=== PATIENT | male | born 1965 | race Caucasian/White ===

== ENCOUNTER 2022-06-25 19:48 | Inpatient (IN) ==
[2022-06-25] MEDS ORDERED: PROPOFOL IV EMULSION 10 MG/ML 100 ML VIAL IV ONE ×2 (19:56→23:30)
--- NOTE | 2022-06-25 20:17 | XRay Report ---
SINGLE VIEW CHEST CLINICAL HISTORY: Dyspnea. Respiratory failure. Intubation. FINDINGS: 3 AP, portable, supine chest radiographs bar compared to chest x-ray and chest CT dated 10/29. An endotracheal tube has been placed. The tip of the catheter projects proximally 6 cm above t he melani. An enteric tube has been placed. The tip projects just below the diaphragm, with the side holes located above the diaphragm. The heart is enlarged. Atherosclerotic calcification of the thorac ic aorta. There is pulmonary vascular congestion. Emphysema and chronic interstitial thickening is si milar to previous. Asymmetric opacities are seen in the left upper lobe. No large pleural effusion is identified. Foci of parenchymal scarring are seen throughout both lungs. No pneumothorax is seen. Th e bony thorax is grossly intact. IMPRESSION: 1. Endotracheal and enteric tubes have been placed as above. The enteric tube should be advanced. 2. Cardiomegaly and emphysema with pulmonary vascular congestion. 3. Asymmetric airspace opacities in the left upper lobe could represent pulmonary edema and/or an inf ectious/inflammatory pneumonitis. Clinical correlation will be required. Radiographic follow-up to re solution is recommended. ACT 112: Negative or not required by law. Electronically signed by: Leo Marcial M.D. 06/25/2022 8:15 PM
[2022-06-25] MEDS ORDERED: methylPREDNISolone 125 MG/2 ML VIAL IV STA ×2 (20:24→23:12)
[2022-06-25] MEDS ORDERED: ALBUT/IPRATROP 3MG/0.5MG NEB 3 ML VIAL NEB ONE (20:24)
[2022-06-25 20:29] LABS: iSTAT Arterial Blood Gas HCO3 41 meg/L (19-24); iSTAT Arterial Blood Gas pCO2 > 115 mmHg (35-46); iSTAT Arterial Blood Gas pH 7.13 (7.35-7.45); iSTAT Arterial Blood Gas pO2 239 mmHg (80-95); iSTAT Carbon Dioxide > 40 mmol/L (24-31); iSTAT Hematocrit 47 % (42-52); iSTAT Potassium 4.8 mmol/L (3.3-5.0); iSTAT Sodium 138 mmol/L (135-144)
[2022-06-25 21:12] LABS: Partial Thromboplastin Ratio 1.3; Partial Thromboplastin Time 34.5 Seconds (21.0-31.0); Prothrombin Time 11.1 Seconds (9.0-12.0)
[2022-06-25 21:21] LABS: iSTAT Arterial Blood Gas HCO3 38 meg/L (19-24); iSTAT Arterial Blood Gas pCO2 107 mmHg (35-46); iSTAT Arterial Blood Gas pH 7.16 (7.35-7.45); iSTAT Arterial Blood Gas pO2 65 mmHg (80-95); iSTAT Carbon Dioxide > 40 mmol/L (24-31); iSTAT Hematocrit 46 % (42-52); iSTAT Hemoglobin 15.6 g/dl (14.0-18.0); iSTAT Potassium 4.8 mmol/L (3.3-5.0); iSTAT Sodium 139 mmol/L (135-144)
[2022-06-25] MEDS ORDERED: OPTIRAY 320 500ml IV ONE (21:28)
[2022-06-25 21:29] LABS: Hematocrit (blood only) 48.9 % (42.0-52.0); Hemoglobin 15.2 g/dl (14.0-18.0); Mean Corpuscular Hemoglobin 30.5 pg (25.0-34.0); Mean Corpuscular Hgb Conc 31.1 g/dL (32.0-36.0); Mean Platelet Volume 11.3 fL (9.4-12.4); Platelet Count 117 K/uL (130-400); RDW Coefficient of Variation 14.7 % (11.5-14.5); RDW Standard Deviation 53.8 fL (36.4-46.3); Red Blood Count 4.99 M/uL (4.70-6.10); White Blood Count 12.63 K/ul (4.8-10.8)
[2022-06-25 21:43] LABS: Albumin Level 4.3 gm/dl (3.4-5.0); BUN Creatinine Ratio 20.4 (10-20); Bilirubin Direct 0.4 mg/dl (0-0.2); Bilirubin,Total 1.1 mg/dl (0.2-1.0); Calcium 9.4 mg/dl (8.5-10.1); Creatinine Clr Calc Pharmacy 91.4 ml/min; Est GFR (African American) 82.6 ml/min; Est GFR (Non-African American) 71.3 ml/min; Magnesium 2.1 mg/dl (1.7-2.4); Potassium 4.8 mmol/L (3.5-5.1); Total Protein 7.5 gm/dl (6.0-8.3)
[2022-06-25 21:50] LABS: Troponin I High Sensitivity 25.8 pg/ml (0-20)
--- NOTE | 2022-06-25 21:53 | CT Scan Report ---
CT ANGIOGRAM OF THE CHEST CLINICAL HISTORY: Dyspnea. COMPARISON STUDY: Chest CT dated 10/29/2020. Chest x-ray dated 06/25/2022. TECHNIQUE: Following the IV administration of 112 cc of Optiray 320, CT angiogram of the chest was pe rformed from the upper abdomen to the thoracic inlet utilizing the pulmonary embolus protocol. Images are reviewed in the axial, sagittal, and coronal planes. 3-D MIPS images are created and assessed. I V contrast was administered without complication. A dose lowering technique was utilized adhering to the principles of ALARA. The examination is degraded by motion artifact, as well as by streak artifa ct from the arms which could not be elevated above the chest. CT DOSE: 1129.51 mGy.cm FINDINGS: Thyroid: Normal in size and heterogeneous in attenuation. Thoracic aorta: There is atherosclerotic calcification of the thoracic aorta, which is normal in [place] and demonstrates bovine variant arch anatomy. No dissection is seen. Pulmonary vasculature: The pulmonary trunk is normal in caliber. There are no filling defects identif ied in main, lobar, or segmental pulmonary branches to suggest pulmonary embolus. Heart: The heart is normal in size and without pericardial effusion. The coronary arteries are densel y calcified. Lungs and pleural spaces: An endotracheal tube terminates above the melani. Evaluation of the lung pa renchyma is degraded by motion artifact. Emphysematous change is noted. Dense airspace consolidation is seen in the the left lower lobe. There is a small focus of cavitation within the left lower lobe c onsolidation seen on image #185. No organized fluid collection is clearly seen. Milder patchy nodular consolidation is seen throughout both lungs. There is noted along the right lower lobe pulmonary nod ule seen on image #144. Foci of mucous plugging are seen throughout the left lower lobe airways. Mediastinum: There are numerous mildly enlarged mediastinal nodes. Subcarinal nodes measure up to 15 mm in short axis. Michelle: Enlarged bilateral hilar nodes measure up to 14 mm in short axis. Axillae: There is no axillary lymphadenopathy. Upper abdomen: Enteric tube terminates in the distal stomach. Partially visualized upper abdominal vi scera is within normal limits. Skeletal structures: The skeletal structures appear osteopenic. Degenerative change is noted in the t horacic spine. No lytic or blastic bony lesions are seen. IMPRESSION: 1. There is no evidence of pulmonary embolus in the main, lobar, or segmental pulmonary arteries. 2. Emphysema. 3. There is dense airspace consolidation in the left lower lobe with a small focus of cavitation. 4. No organized fluid collection is clearly seen within the consolidated lung. 5. Mild patchy nodular consolidation is seen throughout both lungs. These findings likely represent m ultifocal pneumonia. Follow-up to resolution is recommended. 6. Mildly enlarged mediastinal and hilar lymph nodes are likely reactive. 7. There is an 8 mm right lower lobe pulmonary nodule. Follow-up is recommended as per the Fleischner criteria. See below. 8. Endotracheal and enteric tubes are in place. 9. Additional findings as above. Please refer to below summary of Fleischner criteria recommendations for follow-up of incidental CT n odules (Nica Willson, Guidelines for management of small pulmonary nodules detected on CT scans: A sta tement from the Fleischner Society, Radiology 237: [id number].) SOLID NODULES Solitary nodule size: <6 mm * low risk patients: no follow-up needed * high risk patients: optional CT at 12 months Solitary nodule size: 6-8 mm * low risk patients: follow-up at 6-12 months, then consider further follow-up at 18-24 months * high risk patients: initial follow-up CT at 6-12 months and then at 18-24 months if no change Solitary nodule size: >8 mm * either low or high risk patients - consider follow-up CT at 3 months, and/or CT-PET, and/or biopsy Multiple nodules size: <6 mm * low risk patients: no routine follow-up * high risk patients: optional CT at 12 months Multiple nodules size: 6-8 mm * low risk patients: follow-up at 3-6 months, then consider further follow-up at 18-24 months * high risk patients: follow-up at 3-6 months, then at 18-24 months if no change Multiple nodules size: >8 mm * low risk patients: follow-up at 3-6 months, then consider further follow-up at 18-24 months * high risk patients: follow-up at 3-6 months, then at 18-24 months if no change Note: newly detected indeterminate nodule in persons 35 years of age or older. * low risk patients: minimal or absent history of smoking and/or other known risk factors * high risk patients: history of smoking or of other known risk factors (e.g. first degree relative with lung cancer, or exposure to asbestos, radon, uranium) * if a nodule up to 8 mm is partly solid or is ground glass further follow-up is required after 24 m onths to exclude possible slow growing adenocarcinoma (TIFFANY) SUBSOLID NODULES Solitary pure ground-glass nodule * nodule size <6 mm - no CT follow-up required * nodule size >=6 mm - follow-up CT at 6-12 months, then every 2 years until 5 years Solitary part-solid nodule * nodule size <6 mm - no CT follow-up required * nodule size >=6 mm - follow-up CT at 3-6 months. If unchanged, and solid component remains <6 mm, then annual follow-up for 5 years Multiple subsolid nodules * nodule size <6 mm - follow-up CT at 3-6 months, consider further follow-up at 2 and 4 years if sta ble * nodule size >=6 mm - follow-up CT at 3-6 months, subsequent management based on the most suspiciou s nodule(s) ACT 112: Negative or not required by law. Electronically signed by: Leo Marcial M.D. 06/25/2022 9:51 PM
[2022-06-25 21:58] LABS: ALC (manual) 10.74 K/uL (1.2-3.4); ANC (manual) 1.39 K/uL (1.4-6.5); Lymphocytes # (manual) 10.74 K/uL (1.2-3.4); Lymphocytes % (manual) 85 %; Monocytes # (manual) 0.51 K/uL (0.11-0.59); Monocytes % (manual) 4 %; Neutrophils # (manual) 1.39 K/uL (1.40-6.50); Neutrophils % (manual) 11 %
[2022-06-25 21:58] LABS: Appearance Urine Clear (Clear); Bacteria Urine Automated Negative (Negative); Bilirubin Urine 1+ (Negative); Blood Urine 1+ (Negative); Color Urine Orange; Epithelial Cell Urine Auto >30 /lpf (0-5); Glucose Urine UA Negative (Negative); Ketones Urine 1+ (Negative); Leukocyte Esterase Urine Negative (Negative); Nitrite Urine Negative (Negative); Protein Urine 4+ (Negative); RBC Urine Automated 0-4 /hpf (0-4); Specific Gravity Urine 1.034 (1.000-1.030); Urobilinogen Urine Negative (Negative)
[2022-06-25] MEDS ORDERED: metroNIDAZOLE 500 MG/100 ML BAG IV STA (22:10)
[2022-06-25] MEDS ORDERED: CEFEPIME 2,000 MG/20 ML VIAL IV STA (22:10)
[2022-06-25] MEDS ORDERED: VANCOMYCIN CONSULT ACTIVE PRN (22:10)
[2022-06-25] MEDS ORDERED: VANCOMYCIN HCL 2,750 MG in SODIUM CHLORIDE 0.9% 500 ML IV ONE (22:10)
[2022-06-25 22:19] LABS: Adenovirus PCR Not Detected (NotDetected); Bordetella parapertussis PCR Not Detected (NotDetected); Bordetella pertussis PCR Not Detected (NotDetected); Chlamydia pneumoniae PCR Not Detected (NotDetected); Coronavirus 229E PCR Not Detected (NotDetected); Coronavirus CoV-2 (COVID19)PCR Not Detected (NotDetected); Coronavirus HKU1 PCR Not Detected (NotDetected); Coronavirus NL63 PCR Not Detected (NotDetected); Coronavirus OC43PCR Not Detected (NotDetected); Human Metapneumovirus PCR Not Detected (NotDetected); Influenza A PCR Not Detected (NotDetected); Influenza B PCR Not Detected (NotDetected); Mycoplasma pneumoniae PCR Not Detected (NotDetected); Parainfluenza Virus 1 PCR Not Detected (NotDetected); Parainfluenza Virus 2 PCR Not Detected (NotDetected); Parainfluenza Virus 3 PCR Not Detected (NotDetected); Parainfluenza Virus 4 PCR Not Detected (NotDetected); Respiratory Syncytial VirusPCR Not Detected (NotDetected); Rhinovirus/Enterovirus PCR Not Detected (NotDetected)
[2022-06-25 22:30] LABS: HCO3 ABG 40 mmol/L (19-24); Oxygen Saturation ABG 98.7 % (90-95); PCO2 ABG 86 mmHg (35-46); PO2 ABG 114 mmHg (80-95); pH ABG 7.28 (7.35-7.45)
[2022-06-25 22:37] LABS: Allen Test POS (Pos)
--- NOTE | 2022-06-25 23:12 | Emergency Department Note ---
History of Present Illness General Chief complaint: Respiratory Distress Stated complaint: semi responsive/intubated Time Seen by Provider: 06/25/22 19:52 Source: EMS History of Present Illness Provider complaint: Respiratory distress 57-year-old male presents emergency department for respiratory distress. Patient was intubated by EMS in the field. EMS reports that the patient called EMS for difficulty breathing. Patient has a known history of COPD. They state he was hypertensive having difficulty speaking and then he became STEMI responsive in the ambulance and had to be intubated. Home Medications Medication Instructions Recorded Confirmed Type albuterol sulfate 2.5 mg/3 mL 2.5 mg inhalation DIRECTED PRN 06/25/22 06/25/22 History (0.083 %) solution for nebulization Shortness Of Breath epinephrine 0.3 mg/0.3 mL 0.3 mg IM DIRECTED PRN Allergic 06/25/22 06/25/22 History injection, auto-injector Reaction fluticasone propionate 230 2 inh inhalation BID 06/25/22 06/25/22 History mcg-salmeterol 21 mcg/actuation HFA inhaler (Advair HFA) furosemide 80 mg tablet 80 mg PO BID 06/25/22 06/25/22 History tamsulosin 0.4 mg capsule 0.4 mg PO DAILY 06/25/22 06/25/22 History tiotropium bromide 18 mcg capsule 18 mcg inhalation DAILY 06/25/22 06/25/22 History with inhalation device (Spiriva with HandiHaler) Allergies Allergy/AdvReac Type Severity Reaction Status Date / Time Penicillins Allergy Intermediate Hives Verified 06/25/22 20:30 bee venom protein (honey bee) Allergy Unknown ON [facility] MED Verified 06/25/22 20:30 LIST Past Med/Surg History Medical History Acute leukemia Acute respiratory failure with hypoxia CLL (chronic lymphocytic leukemia) COPD (chronic obstructive pulmonary disease) HLD (hyperlipidemia) HTN (hypertension) Necrotizing pneumonia Obesity Social History Smoking Status: Current every day smoker Tobacco Type: Cigarettes Feels Safe at Home: Yes Physical Exam Vital Signs Vital Signs - 24 hr 06/25/22 20:19 06/25/22 20:40 06/25/22 19:54 Temperature Temperature Source Pulse Rate 120 H 115 H Pulse Rate [Apical] Pulse Rate from SpO2 Sensor Pulse Rhythm Regular Regular Pulse Rhythm [Apical] Pulse Strength Normal Pulse Strength [Apical] Respiratory Rate 22 26 H Respiratory Effort / Characteristics Respiratory Depth Normal Respiratory Pattern Blood Pressure 125/76 Blood Pressure [Right Arm] Blood Pressure Mean 92 Blood Pressure Mean [Right Arm] Blood Pressure Position Lying Pulse Oximetry 100 91 95 Oxygen Delivery Method Mechanical Vent Mechanical Vent Mechanical Vent Fraction of Inspired Oxygen 50 50 SaO2/FiO2 Ratio 200 Sepsis Recent Fever Within 48 Hours No Sepsis New/Unexplained Change in Mental Status Yes Sepsis Action Taken by Nursing Physician Notified End-Tidal CO2 End Tidal CO2 (18-54mmHg) 06/25/22 21:30 06/25/22 19:52 06/25/22 20:15 Temperature 36.9 C Temperature Source Rectal Pulse Rate 127 H Pulse Rate [Apical] 109 H Pulse Rate from SpO2 Sensor Pulse Rhythm Pulse Rhythm [Apical] Regular Pulse Strength Pulse Strength [Apical] Normal Respiratory Rate 26 H 22 26 H Respiratory Effort / Characteristics Mechanically Ventilated Respiratory Depth Normal Respiratory Pattern Regular Blood Pressure Blood Pressure [Right Arm] 114/66 Blood Pressure Mean Blood Pressure Mean [Right Arm] 82 Blood Pressure Position Pulse Oximetry 99 100 Oxygen Delivery Method Mechanical Vent Fraction of Inspired Oxygen 70 100 50 SaO2/FiO2 Ratio 141 Sepsis Recent Fever Within 48 Hours Sepsis New/Unexplained Change in Mental Status Sepsis Action Taken by Nursing End-Tidal CO2 82 End Tidal CO2 (18-54mmHg) 67 06/25/22 21:10 06/25/22 20:03 06/25/22 20:10 Temperature Temperature Source Pulse Rate 126 H 127 H Pulse Rate [Apical] Pulse Rate from SpO2 Sensor 126 H 125 H Pulse Rhythm Pulse Rhythm [Apical] Pulse Strength Pulse Strength [Apical] Respiratory Rate 22 5 L Respiratory Effort / Characteristics Respiratory Depth Respiratory Pattern Blood Pressure Blood Pressure [Right Arm] Blood Pressure Mean Blood Pressure Mean [Right Arm] Blood Pressure Position Pulse Oximetry 100 100 Oxygen Delivery Method Fraction of Inspired Oxygen 70 SaO2/FiO2 Ratio Sepsis Recent Fever Within 48 Hours Sepsis New/Unexplained Change in Mental Status Sepsis Action Taken by Nursing End-Tidal CO2 77 70 End Tidal CO2 (18-54mmHg) 06/25/22 20:20 06/25/22 20:30 06/25/22 20:37 Temperature Temperature Source Pulse Rate 128 H 120 H Pulse Rate [Apical] Pulse Rate from SpO2 Sensor 121 H 120 H Pulse Rhythm Pulse Rhythm [Apical] Pulse Strength Pulse Strength [Apical] Respiratory Rate 24 26 H Respiratory Effort / Characteristics Respiratory Depth Respiratory Pattern Blood Pressure 167/98 H Blood Pressure [Right Arm] Blood Pressure Mean 121 Blood Pressure Mean [Right Arm] Blood Pressure Position Pulse Oximetry 100 96 Oxygen Delivery Method Fraction of Inspired Oxygen SaO2/FiO2 Ratio Sepsis Recent Fever Within 48 Hours Sepsis New/Unexplained Change in Mental Status Sepsis Action Taken by Nursing End-Tidal CO2 70 66 End Tidal CO2 (18-54mmHg) 06/25/22 20:37 06/25/22 20:40 06/25/22 20:45 Temperature Temperature Source Pulse Rate 125 H 122 H 124 H Pulse Rate [Apical] Pulse Rate from SpO2 Sensor 125 H 122 H 123 H Pulse Rhythm Pulse Rhythm [Apical] Pulse Strength Pulse Strength [Apical] Respiratory Rate 23 26 H 26 H Respiratory Effort / Characteristics Respiratory Depth Respiratory Pattern Blood Pressure Blood Pressure [Right Arm] Blood Pressure Mean Blood Pressure Mean [Right Arm] Blood Pressure Position Pulse Oximetry 94 92 90 Oxygen Delivery Method Fraction of Inspired Oxygen SaO2/FiO2 Ratio Sepsis Recent Fever Within 48 Hours Sepsis New/Unexplained Change in Mental Status Sepsis Action Taken by Nursing End-Tidal CO2 76 81 85 End Tidal CO2 (18-54mmHg) 06/25/22 20:45 06/25/22 20:50 06/25/22 21:00 Temperature Temperature Source Pulse Rate 122 H Pulse Rate [Apical] Pulse Rate from SpO2 Sensor 121 H Pulse Rhythm Pulse Rhythm [Apical] Pulse Strength Pulse Strength [Apical] Respiratory Rate 26 H Respiratory Effort / Characteristics Respiratory Depth Respiratory Pattern Blood Pressure 146/89 H 125/76 Blood Pressure [Right Arm] Blood Pressure Mean 108 92 Blood Pressure Mean [Right Arm] Blood Pressure Position Pulse Oximetry 92 Oxygen Delivery Method Fraction of Inspired Oxygen SaO2/FiO2 Ratio Sepsis Recent Fever Within 48 Hours Sepsis New/Unexplained Change in Mental Status Sepsis Action Taken by Nursing End-Tidal CO2 71 End Tidal CO2 (18-54mmHg) 06/25/22 21:00 06/25/22 21:10 06/25/22 21:15 Temperature Temperature Source Pulse Rate 119 H 116 H 117 H Pulse Rate [Apical] Pulse Rate from SpO2 Sensor 119 H 117 H 116 H Pulse Rhythm Pulse Rhythm [Apical] Pulse Strength Pulse Strength [Apical] Respiratory Rate 26 H 26 H 26 H Respiratory Effort / Characteristics Respiratory Depth Respiratory Pattern Blood Pressure Blood Pressure [Right Arm] Blood Pressure Mean Blood Pressure Mean [Right Arm] Blood Pressure Position Pulse Oximetry 89 L 95 96 Oxygen Delivery Method Fraction of Inspired Oxygen SaO2/FiO2 Ratio Sepsis Recent Fever Within 48 Hours Sepsis New/Unexplained Change in Mental Status Sepsis Action Taken by Nursing End-Tidal CO2 77 69 65 End Tidal CO2 (18-54mmHg) 06/25/22 21:15 06/25/22 21:34 06/25/22 21:34 Temperature Temperature Source Pulse Rate 113 H Pulse Rate [Apical] Pulse Rate from SpO2 Sensor 113 H Pulse Rhythm Pulse Rhythm [Apical] Pulse Strength Pulse Strength [Apical] Respiratory Rate 26 H Respiratory Effort / Characteristics Respiratory Depth Respiratory Pattern Blood Pressure 118/76 114/66 Blood Pressure [Right Arm] Blood Pressure Mean 90 82 Blood Pressure Mean [Right Arm] Blood Pressure Position Pulse Oximetry 96 Oxygen Delivery Method Fraction of Inspired Oxygen SaO2/FiO2 Ratio Sepsis Recent Fever Within 48 Hours Sepsis New/Unexplained Change in Mental Status Sepsis Action Taken by Nursing End-Tidal CO2 60 End Tidal CO2 (18-54mmHg) 06/25/22 21:40 06/25/22 21:45 06/25/22 21:45 Temperature Temperature Source Pulse Rate 111 H 110 H Pulse Rate [Apical] Pulse Rate from SpO2 Sensor 111 H 110 H Pulse Rhythm Pulse Rhythm [Apical] Pulse Strength Pulse Strength [Apical] Respiratory Rate 26 H 26 H Respiratory Effort / Characteristics Respiratory Depth Respiratory Pattern Blood Pressure 118/68 Blood Pressure [Right Arm] Blood Pressure Mean 84 Blood Pressure Mean [Right Arm] Blood Pressure Position Pulse Oximetry 98 99 Oxygen Delivery Method Fraction of Inspired Oxygen SaO2/FiO2 Ratio Sepsis Recent Fever Within 48 Hours Sepsis New/Unexplained Change in Mental Status Sepsis Action Taken by Nursing End-Tidal CO2 71 67 End Tidal CO2 (18-54mmHg) 06/25/22 21:50 06/25/22 23:08 Temperature Temperature Source Pulse Rate 110 H Pulse Rate [Apical] Pulse Rate from SpO2 Sensor 110 H Pulse Rhythm Pulse Rhythm [Apical] Pulse Strength Pulse Strength [Apical] Respiratory Rate 26 H 26 H Respiratory Effort / Characteristics Respiratory Depth Respiratory Pattern Blood Pressure Blood Pressure [Right Arm] Blood Pressure Mean Blood Pressure Mean [Right Arm] Blood Pressure Position Pulse Oximetry 97 Oxygen Delivery Method Fraction of Inspired Oxygen 70 SaO2/FiO2 Ratio Sepsis Recent Fever Within 48 Hours Sepsis New/Unexplained Change in Mental Status Sepsis Action Taken by Nursing End-Tidal CO2 62 50 End Tidal CO2 (18-54mmHg) Physical Exam GENERAL: Intubated. Distressed. EYES: Pupils 2 mm and reactive. CV: Normal rate, regular rhythm, normal heart sounds and intact distal pulses. There is no peripheral edema. Palpable radial pulses bue. PULM/CHEST: Diminished breath sounds bilaterally. ABD: The abdomen is soft and distended. Course Course 1951: The patient was evaluated in room B1. A complete history and physical exam was performed Cardiac monitoring: An order was placed for continuous cardiac monitoring. The monitor shows a rate of 110 with sinus rhythm interpreted by me Patient arrives intubated. OG tube placed by the nursing. 2014: [id number] ABG shows a PCO2 of 121.8. pH 7.132. Bicarb 40.7 oxygen saturation 100%. Chest x-ray does not show any cardiomegaly or cephalization. ETT was approximately 6 cm above the melani and will be pushed down 4 cm. Patient's respiratory rate was increased in cirrhosis inspiratory to expiratory ratio to 1:4. Patient will be treated with hour-long DuoNeb treatment and IV steroids. 2114: Repeat ABG shows a pH of 7.163 with improvement of the PCO2 to 107. We will continue the patient on ventilator settings. External medical records were reviewed. The patient was seen in this hospital in October 2020. He was intubated in the field at that time also and then was sent to the ICU. From the ICU he was transported to [facility] because he had a leukocytosis of 200 and they are concerned that the patient might need plasmapheresis. public health program manager was able to access records from [facility] and during the patient's hospital stay in 2020 when he was transferred from this facility the patient was started on antibiotics and had a bronchoscopy done in [place] and then was subsequently extubated and discharged. He did not receive plasmapheresis. 2314: Vital signs stable on ventilator. Labs show leukocytosis of 12.6. Lactic acid within normal limits. Repeat blood gas showed a ABG pH of 7.28 PCO2 of 86 bicarb 40 oxygen saturation 98.7. Patient is improving on ventilator. CT of the chest shows no PE but does show pneumonia. Patient treated with cefepime vancomycin and Flagyl. Patient will be admitted [facility] team Dr. Riddle has been notified and needs ICU has also been notified. Administered Medications Discontinued Medications Albuterol (Albut/Ipratrop 3mg/0.5mg Neb 3 Ml Vial) 12 ml NEB ONE ONE; Protocol Stop: 06/25/22 20:25 Last Admin: 06/25/22 20:49 Dose: 12 ml Documented By: LISS Cefepime HCl (Maxipime) 2,000 mg in 20 mls @ 5 mls/min IV NOW STA; Protocol Stop: 06/25/22 22:13 Last Admin: 06/25/22 22:19 Dose: 5 mls/min Documented By: TAMARA Ioversol (Optiray 320 500ml) 112 ml IV ONCE ONE Stop: 06/25/22 21:29 Last Admin: 06/25/22 21:28 Dose: 112 ml Documented By: JUAN J Methylprednisolone (Methylprednisolone 125 Mg/2 Ml Vial) 125 mg IV NOW STA Stop: 06/25/22 20:25 Last Admin: 06/25/22 21:35 Dose: 125 mg Documented By: TAMARA Propofol (Propofol Iv Emulsion 10 Mg/Ml 100 Ml Vial) Confirm Administered Dose 1,000 mg IV .STK-MED ONE Stop: 06/25/22 19:57 Last Admin: 06/25/22 20:00 Dose: 1,000 mg Documented By: TAMARA Co-signed By: ARPAN Critical Care Time Critical Care Time: Yes Total Critical Care Time: 85 I have personally spent greater than 85 minutes of critical care time in the direct management of this patient. This includes bedside care, interpretation of diagnostic studies, and testing, discussion with consultants, patient, and family members, and other required patient management activities. This 85 minutes is in excess of all separately billable procedures. Medical Decision Making Laboratory Data Attestation: I reviewed the patient's lab results. 06/25/22 20:45 06/25/22 21:10 Lab Results 06/25/22 06/25/22 06/25/22 Range/Units 20:15 20:45 20:45 WBC 12.63 H (4.8-10.8) K/ul RBC 4.99 (4.70-6.10) M/uL Hgb 15.2 (14.0-18.0) g/dl POC Hgb 16.0 (14.0-18.0) g/dl Hct 48.9 (42.0-52.0) % POC Hct 47 (42-52) % MCV 98.0 (80.0-100.0) fL MCH 30.5 (25.0-34.0) pg MCHC 31.1 L (32.0-36.0) g/dL RDW Std Deviation 53.8 H (36.4-46.3) fL RDW Coeff of Argenis 14.7 H (11.5-14.5) % Plt Count 117 L (130-400) K/uL MPV 11.3 (9.4-12.4) fL Neutrophils % (Manual) 11 % Lymphocytes % (Manual) 85 % Monocytes % (Manual) 4 % Neutrophils # (Manual) 1.39 L (1.40-6.50) K/uL Total Absolute Neuts 1.39 L (1.4-6.5) K/uL Lymphocytes # (Manual) 10.74 H (1.2-3.4) K/uL Total Abs Lymphocytes 10.74 H (1.2-3.4) K/uL Monocytes # (Manual) 0.51 (0.11-0.59) K/uL PT 11.1 (9.0-12.0) Seconds INR 1.0 (0.9-1.1) APTT 34.5 H (21.0-31.0) Seconds PTT Ratio 1.3 POC pH 7.13 L* (7.35-7.45) POC pCO2 > 115 H (35-46) mmHg POC pO2 239 H (80-95) mmHg POC HCO3 41 H (19-24) isaiah/L POC Total CO2 > 40 H* (24-31) mmol/L POC Base Excess 12.0 H (-9-1.8) isaiah/L ABG pH (7.35-7.45) ABG pCO2 (35-46) mmHg ABG pO2 (80-95) mmHg ABG HCO3 (19-24) mmol/L POC ABG O2 Sat 100.0 H (90-95) % ABG O2 Saturation (90-95) % ABG Base Excess (-9-1.8) mEq/L Sim Test (Pos) Oxygen Given POC Sodium 138 (135-144) mmol/L Sodium (136-145) mmol/L POC Potassium 4.8 (3.3-5.0) mmol/L Potassium (3.5-5.1) mmol/L Chloride (98-107) mmol/L Carbon Dioxide (21-32) mmol/L Anion Gap (3-11) BUN (6-23) mg/dl Creatinine (0.6-1.4) mg/dl Est Cr Clr Drug Dosing ml/min Est GFR ( Amer) ml/min Est GFR (Non-Af Amer) ml/min BUN/Creatinine Ratio (10-20) Glucose (70-99(Fasting)) mg/dl Lactate (0.4-2.0) mmol/L Calcium (8.5-10.1) mg/dl Magnesium (1.7-2.4) mg/dl Total Bilirubin (0.2-1.0) mg/dl Direct Bilirubin (0-0.2) mg/dl AST (13-39) U/L ALT (7-52) U/L Alkaline Phosphatase (34-104) U/L Troponin I High Sens (0-20) pg/ml B-Natriuretic Peptide (0-100) pg/ml Total Protein (6.0-8.3) gm/dl Albumin (3.4-5.0) gm/dl Lipase (11-82) U/L Urine Color Urine Appearance (Clear) Urine pH (4.5-7.5) Ur Specific [place] (1.000-1.030) Urine Protein (Negative) Urine Glucose (UA) (Negative) Urine Ketones (Negative) Urine Blood (Negative) Urine Nitrite (Negative) Urine Bilirubin (Negative) Urine Urobilinogen (Negative) Ur Leukocyte Esterase (Negative) Urine WBC (Auto) (0-5) /hpf Urine RBC (Auto) (0-4) /hpf U Hyaline Cast (Auto) (0-5) /lpf U Epithel Cells (Auto) (0-5) /lpf Urine Bacteria (Auto) (Negative) Ethyl Alcohol mg/dL (<10.0) mg/dl Adenovirus (PCR) (NotDetected) B. pertussis DNA (PCR) (NotDetected) B.parapertussis DNA PCR (NotDetected) C. pneumoniae DNA (PCR) (NotDetected) Coronavirus OC43 (PCR) (NotDetected) Coronavirus HKU1 (PCR) (NotDetected) Coronavirus 229E (PCR) (NotDetected) SARS-CoV-2 (PCR) (NotDetected) Coronavirus NL63 (PCR) (NotDetected) Human Metapneumovir PCR (NotDetected) Influenza Type A (PCR) (NotDetected) Influenza Type B (PCR) (NotDetected) M. pneumoniae (PCR) (NotDetected) Parainfluenza 1 (PCR) (NotDetected) Parainfluenza 2 (PCR) (NotDetected) Parainfluenza 3 (PCR) (NotDetected) Parainfluenza 4 (PCR) (NotDetected) RSV (PCR) (NotDetected) Entero/Rhino (PCR) (NotDetected) 06/25/22 06/25/22 06/25/22 Range/Units 20:55 21:08 21:10 WBC (4.8-10.8) K/ul RBC (4.70-6.10) M/uL Hgb (14.0-18.0) g/dl POC Hgb 15.6 (14.0-18.0) g/dl Hct (42.0-52.0) % POC Hct 46 (42-52) % MCV (80.0-100.0) fL MCH (25.0-34.0) pg MCHC (32.0-36.0) g/dL RDW Std Deviation (36.4-46.3) fL RDW Coeff of Argenis (11.5-14.5) % Plt Count (130-400) K/uL MPV (9.4-12.4) fL Neutrophils % (Manual) % Lymphocytes % (Manual) % Monocytes % (Manual) % Neutrophils # (Manual) (1.40-6.50) K/uL Total Absolute Neuts (1.4-6.5) K/uL Lymphocytes # (Manual) (1.2-3.4) K/uL Total Abs Lymphocytes (1.2-3.4) K/uL Monocytes # (Manual) (0.11-0.59) K/uL PT (9.0-12.0) Seconds INR (0.9-1.1) APTT (21.0-31.0) Seconds PTT Ratio POC pH 7.16 L* (7.35-7.45) POC pCO2 107 H (35-46) mmHg POC pO2 65 L (80-95) mmHg POC HCO3 38 H (19-24) isaiah/L POC Total CO2 > 40 H* (24-31) mmol/L POC Base Excess 10.0 H (-9-1.8) isaiah/L ABG pH (7.35-7.45) ABG pCO2 (35-46) mmHg ABG pO2 (80-95) mmHg ABG HCO3 (19-24) mmol/L POC ABG O2 Sat 83.0 L (90-95) % ABG O2 Saturation (90-95) % ABG Base Excess (-9-1.8) mEq/L Sim Test (Pos) Oxygen Given POC Sodium 139 (135-144) mmol/L Sodium 139 (136-145) mmol/L POC Potassium 4.8 (3.3-5.0) mmol/L Potassium 4.8 (3.5-5.1) mmol/L Chloride 95 L (98-107) mmol/L Carbon Dioxide 37 H (21-32) mmol/L Anion Gap 7 (3-11) BUN 23 (6-23) mg/dl Creatinine 1.13 (0.6-1.4) mg/dl Est Cr Clr Drug Dosing 91.4 ml/min Est GFR ( Amer) 82.6 ml/min Est GFR (Non-Af Amer) 71.3 ml/min BUN/Creatinine Ratio 20.4 H (10-20) Glucose 156 H (70-99(Fasting)) mg/dl Lactate (0.4-2.0) mmol/L Calcium 9.4 (8.5-10.1) mg/dl Magnesium 2.1 (1.7-2.4) mg/dl Total Bilirubin 1.1 H (0.2-1.0) mg/dl Direct Bilirubin 0.4 H (0-0.2) mg/dl AST 10 L (13-39) U/L ALT 16 (7-52) U/L Alkaline Phosphatase 95 (34-104) U/L Troponin I High Sens 25.8 H (0-20) pg/ml B-Natriuretic Peptide (0-100) pg/ml Total Protein 7.5 (6.0-8.3) gm/dl Albumin 4.3 (3.4-5.0) gm/dl Lipase 3 L (11-82) U/L Urine Color Urine Appearance (Clear) Urine pH (4.5-7.5) Ur Specific [place] (1.000-1.030) Urine Protein (Negative) Urine Glucose (UA) (Negative) Urine Ketones (Negative) Urine Blood (Negative) Urine Nitrite (Negative) Urine Bilirubin (Negative) Urine Urobilinogen (Negative) Ur Leukocyte Esterase (Negative) Urine WBC (Auto) (0-5) /hpf Urine RBC (Auto) (0-4) /hpf U Hyaline Cast (Auto) (0-5) /lpf U Epithel Cells (Auto) (0-5) /lpf Urine Bacteria (Auto) (Negative) Ethyl Alcohol mg/dL (<10.0) mg/dl Adenovirus (PCR) Not Detected (NotDetected) B. pertussis DNA (PCR) Not Detected (NotDetected) B.parapertussis DNA PCR Not Detected (NotDetected) C. pneumoniae DNA (PCR) Not Detected (NotDetected) Coronavirus OC43 (PCR) Not Detected (NotDetected) Coronavirus HKU1 (PCR) Not Detected (NotDetected) Coronavirus 229E (PCR) Not Detected (NotDetected) SARS-CoV-2 (PCR) Not Detected (NotDetected) Coronavirus NL63 (PCR) Not Detected (NotDetected) Human Metapneumovir PCR Not Detected (NotDetected) Influenza Type A (PCR) Not Detected (NotDetected) Influenza Type B (PCR) Not Detected (NotDetected) M. pneumoniae (PCR) Not Detected (NotDetected) Parainfluenza 1 (PCR) Not Detected (NotDetected) Parainfluenza 2 (PCR) Not Detected (NotDetected) Parainfluenza 3 (PCR) Not Detected (NotDetected) Parainfluenza 4 (PCR) Not Detected (NotDetected) RSV (PCR) Not Detected (NotDetected) Entero/Rhino (PCR) Not Detected (NotDetected) 06/25/22 06/25/22 06/25/22 Range/Units 21:10 21:10 21:35 WBC (4.8-10.8) K/ul RBC (4.70-6.10) M/uL Hgb (14.0-18.0) g/dl POC Hgb (14.0-18.0) g/dl Hct (42.0-52.0) % POC Hct (42-52) % MCV (80.0-100.0) fL MCH (25.0-34.0) pg MCHC (32.0-36.0) g/dL RDW Std Deviation (36.4-46.3) fL RDW Coeff of Argenis (11.5-14.5) % Plt Count (130-400) K/uL MPV (9.4-12.4) fL Neutrophils % (Manual) % Lymphocytes % (Manual) % Monocytes % (Manual) % Neutrophils # (Manual) (1.40-6.50) K/uL Total Absolute Neuts (1.4-6.5) K/uL Lymphocytes # (Manual) (1.2-3.4) K/uL Total Abs Lymphocytes (1.2-3.4) K/uL Monocytes # (Manual) (0.11-0.59) K/uL PT (9.0-12.0) Seconds INR (0.9-1.1) APTT (21.0-31.0) Seconds PTT Ratio POC pH (7.35-7.45) POC pCO2 (35-46) mmHg POC pO2 (80-95) mmHg POC HCO3 (19-24) isaiah/L POC Total CO2 (24-31) mmol/L POC Base Excess (-9-1.8) isaiah/L ABG pH (7.35-7.45) ABG pCO2 (35-46) mmHg ABG pO2 (80-95) mmHg ABG HCO3 (19-24) mmol/L POC ABG O2 Sat (90-95) % ABG O2 Saturation (90-95) % ABG Base Excess (-9-1.8) mEq/L Sim Test (Pos) Oxygen Given POC Sodium (135-144) mmol/L Sodium (136-145) mmol/L POC Potassium (3.3-5.0) mmol/L Potassium (3.5-5.1) mmol/L Chloride (98-107) mmol/L Carbon Dioxide (21-32) mmol/L Anion Gap (3-11) BUN (6-23) mg/dl Creatinine (0.6-1.4) mg/dl Est Cr Clr Drug Dosing ml/min Est GFR ( Amer) ml/min Est GFR (Non-Af Amer) ml/min BUN/Creatinine Ratio (10-20) Glucose (70-99(Fasting)) mg/dl Lactate 0.6 (0.4-2.0) mmol/L Calcium (8.5-10.1) mg/dl Magnesium (1.7-2.4) mg/dl Total Bilirubin (0.2-1.0) mg/dl Direct Bilirubin (0-0.2) mg/dl AST (13-39) U/L ALT (7-52) U/L Alkaline Phosphatase (34-104) U/L Troponin I High Sens (0-20) pg/ml B-Natriuretic Peptide 63 (0-100) pg/ml Total Protein (6.0-8.3) gm/dl Albumin (3.4-5.0) gm/dl Lipase (11-82) U/L Urine Color [place] Urine Appearance Clear (Clear) Urine pH 5.0 (4.5-7.5) Ur Specific [place] 1.034 H (1.000-1.030) Urine Protein 4+ H (Negative) Urine Glucose (UA) Negative (Negative) Urine Ketones 1+ H (Negative) Urine Blood 1+ H (Negative) Urine Nitrite Negative (Negative) Urine Bilirubin 1+ H (Negative) Urine Urobilinogen Negative (Negative) Ur Leukocyte Esterase Negative (Negative) Urine WBC (Auto) 1-5 (0-5) /hpf Urine RBC (Auto) 0-4 (0-4) /hpf U Hyaline Cast (Auto) 1-5 (0-5) /lpf U Epithel Cells (Auto) >30 H (0-5) /lpf Urine Bacteria (Auto) Negative (Negative) Ethyl Alcohol mg/dL (<10.0) mg/dl Adenovirus (PCR) (NotDetected) B. pertussis DNA (PCR) (NotDetected) B.parapertussis DNA PCR (NotDetected) C. pneumoniae DNA (PCR) (NotDetected) Coronavirus OC43 (PCR) (NotDetected) Coronavirus HKU1 (PCR) (NotDetected) Coronavirus 229E (PCR) (NotDetected) SARS-CoV-2 (PCR) (NotDetected) Coronavirus NL63 (PCR) (NotDetected) Human Metapneumovir PCR (NotDetected) Influenza Type A (PCR) (NotDetected) Influenza Type B (PCR) (NotDetected) M. pneumoniae (PCR) (NotDetected) Parainfluenza 1 (PCR) (NotDetected) Parainfluenza 2 (PCR) (NotDetected) Parainfluenza 3 (PCR) (NotDetected) Parainfluenza 4 (PCR) (NotDetected) RSV (PCR) (NotDetected) Entero/Rhino (PCR) (NotDetected) 06/25/22 06/25/22 Range/Units 22:14 22:23 WBC (4.8-10.8) K/ul RBC (4.70-6.10) M/uL Hgb (14.0-18.0) g/dl POC Hgb (14.0-18.0) g/dl Hct (42.0-52.0) % POC Hct (42-52) % MCV (80.0-100.0) fL MCH (25.0-34.0) pg MCHC (32.0-36.0) g/dL RDW Std Deviation (36.4-46.3) fL RDW Coeff of Argenis (11.5-14.5) % Plt Count (130-400) K/uL MPV (9.4-12.4) fL Neutrophils % (Manual) % Lymphocytes % (Manual) % Monocytes % (Manual) % Neutrophils # (Manual) (1.40-6.50) K/uL Total Absolute Neuts (1.4-6.5) K/uL Lymphocytes # (Manual) (1.2-3.4) K/uL Total Abs Lymphocytes (1.2-3.4) K/uL Monocytes # (Manual) (0.11-0.59) K/uL PT (9.0-12.0) Seconds INR (0.9-1.1) APTT (21.0-31.0) Seconds PTT Ratio POC pH (7.35-7.45) POC pCO2 (35-46) mmHg POC pO2 (80-95) mmHg POC HCO3 (19-24) isaiah/L POC Total CO2 (24-31) mmol/L POC Base Excess (-9-1.8) isaiah/L ABG pH 7.28 L (7.35-7.45) ABG pCO2 86 H (35-46) mmHg ABG pO2 114 H (80-95) mmHg ABG HCO3 40 H (19-24) mmol/L POC ABG O2 Sat (90-95) % ABG O2 Saturation 98.7 H (90-95) % ABG Base Excess 10.0 H (-9-1.8) mEq/L Sim Test POS (Pos) Oxygen Given UNK POC Sodium (135-144) mmol/L Sodium (136-145) mmol/L POC Potassium (3.3-5.0) mmol/L Potassium (3.5-5.1) mmol/L Chloride (98-107) mmol/L Carbon Dioxide (21-32) mmol/L Anion Gap (3-11) BUN (6-23) mg/dl Creatinine (0.6-1.4) mg/dl Est Cr Clr Drug Dosing ml/min Est GFR ( Amer) ml/min Est GFR (Non-Af Amer) ml/min BUN/Creatinine Ratio (10-20) Glucose (70-99(Fasting)) mg/dl Lactate (0.4-2.0) mmol/L Calcium (8.5-10.1) mg/dl Magnesium (1.7-2.4) mg/dl Total Bilirubin (0.2-1.0) mg/dl Direct Bilirubin (0-0.2) mg/dl AST (13-39) U/L ALT (7-52) U/L Alkaline Phosphatase (34-104) U/L Troponin I High Sens (0-20) pg/ml B-Natriuretic Peptide (0-100) pg/ml Total Protein (6.0-8.3) gm/dl Albumin (3.4-5.0) gm/dl Lipase (11-82) U/L Urine Color Urine Appearance (Clear) Urine pH (4.5-7.5) Ur Specific [place] (1.000-1.030) Urine Protein (Negative) Urine Glucose (UA) (Negative) Urine Ketones (Negative) Urine Blood (Negative) Urine Nitrite (Negative) Urine Bilirubin (Negative) Urine Urobilinogen (Negative) Ur Leukocyte Esterase (Negative) Urine WBC (Auto) (0-5) /hpf Urine RBC (Auto) (0-4) /hpf U Hyaline Cast (Auto) (0-5) /lpf U Epithel Cells (Auto) (0-5) /lpf Urine Bacteria (Auto) (Negative) Ethyl Alcohol mg/dL < 10.0 (<10.0) mg/dl Adenovirus (PCR) (NotDetected) B. pertussis DNA (PCR) (NotDetected) B.parapertussis DNA PCR (NotDetected) C. pneumoniae DNA (PCR) (NotDetected) Coronavirus OC43 (PCR) (NotDetected) Coronavirus HKU1 (PCR) (NotDetected) Coronavirus 229E (PCR) (NotDetected) SARS-CoV-2 (PCR) (NotDetected) Coronavirus NL63 (PCR) (NotDetected) Human Metapneumovir PCR (NotDetected) Influenza Type A (PCR) (NotDetected) Influenza Type B (PCR) (NotDetected) M. pneumoniae (PCR) (NotDetected) Parainfluenza 1 (PCR) (NotDetected) Parainfluenza 2 (PCR) (NotDetected) Parainfluenza 3 (PCR) (NotDetected) Parainfluenza 4 (PCR) (NotDetected) RSV (PCR) (NotDetected) Entero/Rhino (PCR) (NotDetected) Imaging Data Attestation: I personally reviewed and interpreted this imaging study as follows: My Impression: Chest x-ray does not show any cardiomegaly or cephalization. ETT was approximately 6 cm above the melani Radiologist's Impression: Chest X-Ray 06/25/22 19:53 SINGLE VIEW CHEST CLINICAL HISTORY: Dyspnea. Respiratory failure. Intubation. FINDINGS: 3 AP, portable, supine chest radiographs bar compared to chest x-ray and chest CT dated 10/29/2020. An endotracheal tube has been placed. The tip of the catheter projects proximally 6 cm above the melani. An enteric tube has been placed. The tip projects just below the diaphragm, with the side holes located above the diaphragm. The heart is enlarged. Atherosclerotic calcification of the thoracic aorta. There is pulmonary vascular congestion. Emphysema and chronic interstitial thickening is similar to previous. Asymmetric opacities are seen in the left upper lobe. No large pleural effusion is identified. Foci of parenchymal scarring are seen throughout both lungs. No pneumothorax is seen. The bony thorax is grossly intact. IMPRESSION: 1. Endotracheal and enteric tubes have been placed as above. The enteric tube should be advanced. 2. Cardiomegaly and emphysema with pulmonary vascular congestion. 3. Asymmetric airspace opacities in the left upper lobe could represent pulmonary edema and/or an infectious/inflammatory pneumonitis. Clinical correlation will be required. Radiographic follow-up to resolution is recommended. ACT 112: Negative or not required by law. Electronically signed by: Leo Marcial M.D. 06/25/2022 8:15 PM Chest CTA 06/25/22 20:00 CT ANGIOGRAM OF THE CHEST CLINICAL HISTORY: Dyspnea. COMPARISON STUDY: Chest CT dated 10/29/2020. Chest x-ray dated 06/25/2022. TECHNIQUE: Following the IV administration of 112 cc of Optiray 320, CT angiogram of the chest was performed from the upper abdomen to the thoracic inlet utilizing the pulmonary embolus protocol. Images are reviewed in the axial, sagittal, and coronal planes. 3-D MIPS images are created and assessed. IV contrast was administered without complication. A dose lowering technique was utilized adhering to the principles of ALARA. The examination is degraded by motion artifact, as well as by streak artifact from the arms which could not be elevated above the chest. CT DOSE: 1129.51 mGy.cm FINDINGS: Thyroid: Normal in size and heterogeneous in attenuation. Thoracic aorta: There is atherosclerotic calcification of the thoracic aorta, which is normal in caliber and demonstrates bovine variant arch anatomy. No dissection is seen. Pulmonary vasculature: The pulmonary trunk is normal in caliber. There are no filling defects identified in main, lobar, or segmental pulmonary branches to suggest pulmonary embolus. Heart: The heart is normal in size and without pericardial effusion. The coronary arteries are densely calcified. Lungs and pleural spaces: An endotracheal tube terminates above the melani. Evaluation of the lung parenchyma is degraded by motion artifact. Emphysematous change is noted. Dense airspace consolidation is seen in the the left lower lobe. There is a small focus of cavitation within the left lower lobe consolidation seen on image #185. No organized fluid collection is clearly seen. Milder patchy nodular consolidation is seen throughout both lungs. There is noted along the right lower lobe pulmonary nodule seen on image #144. Foci of mucous plugging are seen throughout the left lower lobe airways. Mediastinum: There are numerous mildly enlarged mediastinal nodes. Subcarinal nodes measure up to 15 mm in short axis. Michelle: Enlarged bilateral hilar nodes measure up to 14 mm in short axis. Axillae: There is no axillary lymphadenopathy. Upper abdomen: Enteric tube terminates in the distal stomach. Partially visualized upper abdominal viscera is within normal limits. Skeletal structures: The skeletal structures appear osteopenic. Degenerative change is noted in the thoracic spine. No lytic or blastic bony lesions are seen. IMPRESSION: 1. There is no evidence of pulmonary embolus in the main, lobar, or segmental pulmonary arteries. 2. Emphysema. 3. There is dense airspace consolidation in the left lower lobe with a small focus of cavitation. 4. No organized fluid collection is clearly seen within the consolidated lung. 5. Mild patchy nodular consolidation is seen throughout both lungs. These findings likely represent multifocal pneumonia. Follow-up to resolution is recommended. 6. Mildly enlarged mediastinal and hilar lymph nodes are likely reactive. 7. There is an 8 mm right lower lobe pulmonary nodule. Follow-up is recommended as per the Fleischner criteria. See below. 8. Endotracheal and enteric tubes are in place. 9. Additional findings as above. Please refer to below summary of Fleischner criteria recommendations for follow- up of incidental CT nodules (Nica Willson, Guidelines for management of small pulmonary nodules detected on CT scans: A statement from the Fleischner Society, Radiology 237: [phone].) SOLID NODULES Solitary nodule size: <6 mm * low risk patients: no follow-up needed * high risk patients: optional CT at 12 months Solitary nodule size: 6-8 mm * low risk patients: follow-up at 6-12 months, then consider further follow-up at 18-24 months * high risk patients: initial follow-up CT at 6-12 months and then at 18-24 months if no change Solitary nodule size: >8 mm * either low or high risk patients - consider follow-up CT at 3 months, and/or CT-PET, and/or biopsy Multiple nodules size: <6 mm * low risk patients: no routine follow-up * high risk patients: optional CT at 12 months Multiple nodules size: 6-8 mm * low risk patients: follow-up at 3-6 months, then consider further follow-up at 18-24 months * high risk patients: follow-up at 3-6 months, then at 18-24 months if no change Multiple nodules size: >8 mm * low risk patients: follow-up at 3-6 months, then consider further follow-up at 18-24 months * high risk patients: follow-up at 3-6 months, then at 18-24 months if no change Note: newly detected indeterminate nodule in persons 35 years of age or older. * low risk patients: minimal or absent history of smoking and/or other known risk factors * high risk patients: history of smoking or of other known risk factors (e.g. first degree relative with lung cancer, or exposure to asbestos, radon, uranium) * if a nodule up to 8 mm is partly solid or is ground glass further follow-up is required after 24 months to exclude possible slow growing adenocarcinoma (TIFFANY) SUBSOLID NODULES Solitary pure ground-glass nodule * nodule size <6 mm - no CT follow-up required * nodule size >=6 mm - follow-up CT at 6-12 months, then every 2 years until 5 years Solitary part-solid nodule * nodule size <6 mm - no CT follow-up required * nodule size >=6 mm - follow-up CT at 3-6 months. If unchanged, and solid component remains <6 mm, then annual follow-up for 5 years Multiple subsolid nodules * nodule size <6 mm - follow-up CT at 3-6 months, consider further follow-up at 2 and 4 years if stable * nodule size >=6 mm - follow-up CT at 3-6 months, subsequent management based on the most suspicious nodule(s) ACT 112: Negative or not required by law. Electronically signed by: Leo Marcial M.D. 06/25/2022 9:51 PM ECG Data Attestation: I personally reviewed and interpreted this ECG as follows: Indication: + SOB/dyspnea Rate (beats per minute): 128 Rhythm: + sinus tachycardia ECG Intervals/blocks: + Normal QRS, + Normal OK and + Normal QT-c ECG ST segments: + Normal ST segments [facility] Narrative 1951: The patient was evaluated in room B1. A complete history and physical exam was performed Cardiac monitoring: An order was placed for continuous cardiac monitoring. The monitor shows a rate of 110 with sinus rhythm interpreted by me Patient arrives intubated. OG tube placed by the nursing. 2014: [id number] ABG shows a PCO2 of 121.8. pH 7.132. Bicarb 40.7 oxygen saturation 100%. Chest x-ray does not show any cardiomegaly or cephalization. ETT was approximately 6 cm above the melani and will be pushed down 4 cm. Patient's respiratory rate was increased in cirrhosis inspiratory to expiratory ratio to 1:4. Patient will be treated with hour-long DuoNeb treatment and IV steroids. 2114: Repeat ABG shows a pH of 7.163 with improvement of the PCO2 to 107. We will continue the patient on ventilator settings. External medical records were reviewed. The patient was seen in this hospital in October 2020. He was intubated in the field at that time also and then was sent to the ICU. From the ICU he was transported to [facility] because he had a leukocytosis of 200 and they are concerned that the patient might need plasmapheresis. public health program manager was able to access records from [facility] and during the patient's hospital stay in 2020 when he was transferred from this facility the patient was started on antibiotics and had a bronchoscopy done in [place] and then was subsequently extubated and discharged. He did not receive plasmapheresis. 2314: Vital signs stable on ventilator. Labs show leukocytosis of 12.6. Lactic acid within normal limits. Repeat blood gas showed a ABG pH of 7.28 PCO2 of 86 bicarb 40 oxygen saturation 98.7. Patient is improving on ventilator. CT of the chest shows no PE but does show pneumonia. Patient treated with cefepime vancomycin and Flagyl. [facility] team Dr. Riddle has been notified and needs ICU has also been notified. Impression & Plan Acute hypercapnic respiratory failure, Multifocal pneumonia Discharge Plan Visit Data Chief Complaint: Respiratory Distress Stated Complaint: semi responsive/intubated ED Provider: Manny Henriquez Discharge Problem: Acute hypercapnic respiratory failure, Multifocal pneumonia Patient Disposition: Admitted As Inpatient Forms Stand Alone Forms: [facility] Prescriptions Prescriptions: No Action albuterol sulfate 2.5 mg /3 mL (0.083 %) Solution For Nebulization 2.5 mg INHALATION DIRECTED PRN (Reason: Shortness Of Breath) tamsulosin 0.4 mg capsule 0.4 mg PO DAILY furosemide 80 mg tablet 80 mg PO BID epinephrine [Epi E-Z Pen] 0.3 mg/0.3 mL Auto-Injector 0.3 mg IM DIRECTED PRN (Reason: Allergic Reaction) Spiriva with HandiHaler 18 mcg capsule, w/inhalation device 18 mcg INHALATION DAILY Advair HFA 230-21 mcg/actuation HFA aerosol inhaler 2 inh INHALATION BID Referrals Referrals: Stas Ardon MD [Primary Care Provider] -
--- NOTE | 2022-06-25 23:16 | Critical Care Consultation ---
Date of Consultation June 25, 2022 Assessment & Plan (1) Acute hypercapnic respiratory failure: (2) Multifocal pneumonia: (3) CLL (chronic lymphocytic leukemia): (4) COPD (chronic obstructive pulmonary disease): (5) CHF (congestive heart failure): (6) HTN (hypertension): Plan Reason Critically Ill: Patient admitted post intubation in the field secondary to hypercarbic respiratory failure. Patient is reported to be continued every day smoker. Imaging revealing for bilateral lobe consolidations, noted leukocytosis and thick yellow sputum. Started on broad spectrum abx. Continue supportive care and wean from ventilator as apporpriate. Neuro - Sedated for mechanical ventilation CAM ICU: JESSE - Goal LIT -2 continue propofol, Fentanyl infusion added for sedation - Restraint of wrists if needed Cardiac - SEPSIS, HFpEF, Elevated HScTNI Sepsis without evidence of organ dysfunction/shock at this time ECHO from 11/11 with HFpEF of 55% with RV dilation- reported negative stress test 01/11 Hold ARB at this time- follow hemodyanmics and Renal function ECG revealed without acute STEMI- likley demand type II elevation in the setting of hypercarbic respiratory failure Vasopressor agents as needed for hypotension- likely related to sedation at this time Respiratory - Hypercarbic Respiratory failure requiring mechanical ventilation, COPD/Emphysmea, Bilateral Pneumonia, Plueral Effusion - Remains with respiratory acidosis- continue to adjust ventilator and nebulizer therapy - ETT advanced after arrival to [facility]- daily CXR while intubated - ABG as needed - if no improvement and need for frequent ABGS will place arterial line - Vent management PRVC- air trapping and increase peak pressures- sedation increased and dose of vecuronium x1 now - Await blood culture results, continue with Vanco, Cefepime, Flagyl- aspergillus and legionella antigen pending as well as Beta-d Glucan - Daily awakenings and spont trials - Pleural Effusion noted on left side- chronic appearing - evaluate with bedside ultrasound reveals GI - No acute needs - NPO continue with OGT to LIWS RENAL/LYTES - Respiratory acidosis with Metabolic Alkalosis uncompensated, CKD - As above - follow renal function avoid nephrotoxic agents as able - ICU electrolyte protocol - No acute needs ENDO - Elevated serum glucose without diagnosis of diabetes - ICU hyperglycemic protocl - follow while on steroids HEME - CLL - treated at [facility] in 2020- ibrutinib therapy appears to be on hold secondary to CHF - Follows [facility]- Dr. Ramirez - WBC 12 with lymp at 10.7 ID - Pneumonia bilateral Patient with history of PNA previously with Strep angiosus and MSSA- MRSA swab pending on arrival Continue broad spectrum abx- de-escelate when appropriate- Doxy, Vanco, Ertepenam, Blood Cultures pending Aspergillus pending Legionella urine AG pending LINES/IV ACCESS - PIV, Macdonald, ETT, OGT Continue use of thees lines DVT PROPHYLAXIS - SCDs, Lovenox DISPO: ICU while intubated and sedated I have personally spent 50 minutes of critical care time in the direct management of this patient. This is a life/limb threatening event. This includes time spent evaluating patient, direct bedside care, chart review, placing orders, interpretation of diagnostic studies, discussion with consultants, patient, and family members, as well as other required patient management activities. This time is exclusive of all separately billable procedures, and separate from and in addition to any other critical care service time. Thank you for allowing us to participate in the care of this patient. Please refer to my attending physician's documentation for any further recommendations. History of Present Illness Reason for Consultation: Intubation for hypercarbic respiratory failure Requesting Physician: Chester Riddle Attending Physician: Chester Riddle History of Present Illness 57 YOM with history of: Leukemia (DX in 2020) on Ibrutinib, Obesity, Current Smoker with COPD, , DANIKA, HTN, HFrEF. Patient arrived to EMD after calling EMS complaining of shortness of breath. He was intubated in the field by EMS and ETT was advanced following EMD evaluation. The patient was noted to be acidotic to 7.16 as well as hypercarbic respiratory failure with PaCO2 of 107 and PaO2 of 65- Following steroid, nebulizer and ventilator adjustment patient improved to 7.28 PaCO2 86, PaO2 114 and HCO3 of 40. He had CXR performed as well as CTA of the chest completed, routine labs to include lactate and respiratory biofire and blood cultures. CTA negative for pulmonary embolism but noting dense airspace consolidation bilateral as well as left lower lobe consolidation with small focus of cavitation and mucous plugging- the area of cavitation also appears likely present in CT scan of chest 2020. He was initiated on broad spectrum abx and notified by hospitalist and EMD of patient admission. The patient was sedated with propofol appropriately on my evaluation. Labs reviewed without elevated lactate or other evidence of organ dysfunction at this time and is without vasopressor requirement currently. Patient was seen in the EMD. COVID- NEGATIVE Allergies Allergy/AdvReac Type Severity Reaction Status Date / Time Penicillins Allergy Intermediate Hives Verified 06/25/22 20:30 bee venom protein (honey bee) Allergy Unknown ON [facility] MED Verified 06/25/22 20:30 LIST Home Medications Medication Instructions Recorded Confirmed Type albuterol sulfate 2.5 mg/3 mL 2.5 mg inhalation DIRECTED PRN 06/25/2208/12 History (0.083 %) solution for nebulization Shortness Of Breath epinephrine 0.3 mg/0.3 mL 0.3 mg IM DIRECTED PRN Allergic 06/25/22 06/25/22 History injection, auto-injector Reaction fluticasone propionate 230 2 inh inhalation BID 06/25/22 06/25/22 History mcg-salmeterol 21 mcg/actuation HFA inhaler (Advair HFA) furosemide 80 mg tablet 80 mg PO BID 06/25/22 06/25/22 History tamsulosin 0.4 mg capsule 0.4 mg PO DAILY 06/25/22 06/25/22 History tiotropium bromide 18 mcg capsule 18 mcg inhalation DAILY 06/25/22 06/25/22 History with inhalation device (Spiriva with HandiHaler) Patient History Medical History (Updated 06/25/22 @ 23:39 by BLAYNE Paez) Acute leukemia Acute respiratory failure with hypoxia CHF (congestive heart failure) CLL (chronic lymphocytic leukemia) COPD (chronic obstructive pulmonary disease) HLD (hyperlipidemia) HTN (hypertension) Necrotizing pneumonia Obesity Social History Smoking Status: Current every day smoker Tobacco Type: Cigarettes Second Hand Exposure: No; Do You Dip or Chew Tobacco: No; Tobacco Cessation Education Requested by Patient: No Hx Alcohol Use: No Hx Substance Use: No Preferred Language: Sami 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 Chest: equal rise and fall of the chest, no accessory muscle use, scattered rhonchi with inspiratory and expiratory wheeze, decreased air movment LT > RIGHT Cardiac: Regular rate and rhythm, telemetry reviewed- NSR, skin warm dry, cap refill <3 seconds, peripheral pulses +2 no JVD, no murmur, trace lower extremity edema GI: Softly distended, tympanic on percussion : macdonald to gravity draining waylon colored urine Skin: no rash or erythema Results & Data Results & Data ([facility]) Vital Signs (Past 12 Hours) Vital Signs Temp Pulse Pulse Resp BP BP Pulse Ox 06/25/22 23:08 26 H 06/25/22 21:50 110 H 26 H 97 06/25/22 21:45 110 H 26 H 99 06/25/22 21:45 118/68 06/25/22 21:40 111 H 26 H 98 06/25/22 21:34 113 H 26 H 96 06/25/22 21:34 114/66 06/25/22 21:15 118/76 06/25/22 21:15 117 H 26 H 96 06/25/22 21:10 116 H 26 H 95 06/25/22 21:00 119 H 26 H 89 L 06/25/22 21:00 125/76 06/25/22 20:50 122 H 26 H 92 06/25/22 20:45 146/89 H 06/25/22 20:45 124 H 26 H 90 06/25/22 20:40 122 H 26 H 92 06/25/22 20:37 125 H 23 94 06/25/22 20:37 167/98 H 06/25/22 20:30 120 H 26 H 96 06/25/22 20:20 128 H 24 100 06/25/22 20:10 127 H 5 L 100 06/25/22 20:03 126 H 22 100 06/25/22 21:10 06/25/22 20:15 26 H 06/25/22 19:52 127 H 22 100 06/25/22 21:30 36.9 C 109 H 26 H 114/66 99 06/25/22 19:54 115 H 26 H 125/76 95 06/25/22 20:40 91 06/25/22 20:19 120 H 22 100 O2 Del Method FiO2 06/25/22 23:08 70 06/25/22 21:50 06/25/22 21:45 06/25/22 21:45 06/25/22 21:40 06/25/22 21:34 06/25/22 21:34 06/25/22 21:15 06/25/22 21:15 06/25/22 21:10 06/25/22 21:00 06/25/22 21:00 06/25/22 20:50 06/25/22 20:45 06/25/22 20:45 06/25/22 20:40 06/25/22 20:37 06/25/22 20:37 06/25/22 20:30 06/25/22 20:20 06/25/22 20:10 06/25/22 20:03 06/25/22 21:10 70 06/25/22 20:15 50 06/25/22 19:52 100 06/25/22 21:30 Mechanical Vent 70 06/25/22 19:54 Mechanical Vent 06/25/22 20:40 Mechanical Vent 50 06/25/22 20:19 Mechanical Vent 50 Laboratory Results Abnormal lab results 06/25/22 06/25/22 06/25/22 Range/Units 20:15 20:45 20:45 WBC 12.63 H (4.8-10.8) K/ul MCHC 31.1 L (32.0-36.0) g/dL RDW Std Deviation 53.8 H (36.4-46.3) fL RDW Coeff of Argenis 14.7 H (11.5-14.5) % Plt Count 117 L (130-400) K/uL Neutrophils # (Manual) 1.39 L (1.40-6.50) K/uL Total Absolute Neuts 1.39 L (1.4-6.5) K/uL Lymphocytes # (Manual) 10.74 H (1.2-3.4) K/uL Total Abs Lymphocytes 10.74 H (1.2-3.4) K/uL APTT 34.5 H (21.0-31.0) Seconds POC pH 7.13 L* (7.35-7.45) POC pCO2 > 115 H (35-46) mmHg POC pO2 239 H (80-95) mmHg POC HCO3 41 H (19-24) isaiah/L POC Total CO2 > 40 H* (24-31) mmol/L POC Base Excess 12.0 H (-9-1.8) isaiah/L ABG pH (7.35-7.45) ABG pCO2 (35-46) mmHg ABG pO2 (80-95) mmHg ABG HCO3 (19-24) mmol/L POC ABG O2 Sat 100.0 H (90-95) % ABG O2 Saturation (90-95) % ABG Base Excess (-9-1.8) mEq/L Chloride (98-107) mmol/L Carbon Dioxide (21-32) mmol/L BUN/Creatinine Ratio (10-20) Glucose (70-99(Fasting)) mg/dl Total Bilirubin (0.2-1.0) mg/dl Direct Bilirubin (0-0.2) mg/dl AST (13-39) U/L Troponin I High Sens (0-20) pg/ml Lipase (11-82) U/L Ur Specific [place] (1.000-1.030) Urine Protein (Negative) Urine Ketones (Negative) Urine Blood (Negative) Urine Bilirubin (Negative) U Epithel Cells (Auto) (0-5) /lpf 06/25/22 06/25/22 06/25/22 Range/Units 21:08 21:10 21:35 WBC (4.8-10.8) K/ul MCHC (32.0-36.0) g/dL RDW Std Deviation (36.4-46.3) fL RDW Coeff of Argenis (11.5-14.5) % Plt Count (130-400) K/uL Neutrophils # (Manual) (1.40-6.50) K/uL Total Absolute Neuts (1.4-6.5) K/uL Lymphocytes # (Manual) (1.2-3.4) K/uL Total Abs Lymphocytes (1.2-3.4) K/uL APTT (21.0-31.0) Seconds POC pH 7.16 L* (7.35-7.45) POC pCO2 107 H (35-46) mmHg POC pO2 65 L (80-95) mmHg POC HCO3 38 H (19-24) isaiah/L POC Total CO2 > 40 H* (24-31) mmol/L POC Base Excess 10.0 H (-9-1.8) isaiah/L ABG pH (7.35-7.45) ABG pCO2 (35-46) mmHg ABG pO2 (80-95) mmHg ABG HCO3 (19-24) mmol/L POC ABG O2 Sat 83.0 L (90-95) % ABG O2 Saturation (90-95) % ABG Base Excess (-9-1.8) mEq/L Chloride 95 L (98-107) mmol/L Carbon Dioxide 37 H (21-32) mmol/L BUN/Creatinine Ratio 20.4 H (10-20) Glucose 156 H (70-99(Fasting)) mg/dl Total Bilirubin 1.1 H (0.2-1.0) mg/dl Direct Bilirubin 0.4 H (0-0.2) mg/dl AST 10 L (13-39) U/L Troponin I High Sens 25.8 H (0-20) pg/ml Lipase 3 L (11-82) U/L Ur Specific [place] 1.034 H (1.000-1.030) Urine Protein 4+ H (Negative) Urine Ketones 1+ H (Negative) Urine Blood 1+ H (Negative) Urine Bilirubin 1+ H (Negative) U Epithel Cells (Auto) >30 H (0-5) /lpf 06/25/22 Range/Units 22:23 WBC (4.8-10.8) K/ul MCHC (32.0-36.0) g/dL RDW Std Deviation (36.4-46.3) fL RDW Coeff of Argenis (11.5-14.5) % Plt Count (130-400) K/uL Neutrophils # (Manual) (1.40-6.50) K/uL Total Absolute Neuts (1.4-6.5) K/uL Lymphocytes # (Manual) (1.2-3.4) K/uL Total Abs Lymphocytes (1.2-3.4) K/uL APTT (21.0-31.0) Seconds POC pH (7.35-7.45) POC pCO2 (35-46) mmHg POC pO2 (80-95) mmHg POC HCO3 (19-24) isaiah/L POC Total CO2 (24-31) mmol/L POC Base Excess (-9-1.8) isaiah/L ABG pH 7.28 L (7.35-7.45) ABG pCO2 86 H (35-46) mmHg ABG pO2 114 H (80-95) mmHg ABG HCO3 40 H (19-24) mmol/L POC ABG O2 Sat (90-95) % ABG O2 Saturation 98.7 H (90-95) % ABG Base Excess 10.0 H (-9-1.8) mEq/L Chloride (98-107) mmol/L Carbon Dioxide (21-32) mmol/L BUN/Creatinine Ratio (10-20) Glucose (70-99(Fasting)) mg/dl Total Bilirubin (0.2-1.0) mg/dl Direct Bilirubin (0-0.2) mg/dl AST (13-39) U/L Troponin I High Sens (0-20) pg/ml Lipase (11-82) U/L Ur Specific [place] (1.000-1.030) Urine Protein (Negative) Urine Ketones (Negative) Urine Blood (Negative) Urine Bilirubin (Negative) U Epithel Cells (Auto) (0-5) /lpf Diagnostic Findings Chest X-Ray 06/25/22 19:53 SINGLE VIEW CHEST CLINICAL HISTORY: Dyspnea. Respiratory failure. Intubation. FINDINGS: 3 AP, portable, supine chest radiographs bar compared to chest x-ray and chest CT dated 10/29/2020. An endotracheal tube has been placed. The tip of the catheter projects proximally 6 cm above the melani. An enteric tube has been placed. The tip projects just below the diaphragm, with the side holes located above the diaphragm. The heart is enlarged. Atherosclerotic calcification of the thoracic aorta. There is pulmonary vascular congestion. Emphysema and chronic interstitial thickening is similar to previous. Asymmetric opacities are seen in the left upper lobe. No large pleural effusion is identified. Foci of parenchymal scarring are seen throughout both lungs. No pneumothorax is seen. The bony thorax is grossly intact. IMPRESSION: 1. Endotracheal and enteric tubes have been placed as above. The enteric tube should be advanced. 2. Cardiomegaly and emphysema with pulmonary vascular congestion. 3. Asymmetric airspace opacities in the left upper lobe could represent pulmonary edema and/or an infectious/inflammatory pneumonitis. Clinical correlation will be required. Radiographic follow-up to resolution is recommended. ACT 112: Negative or not required by law. Electronically signed by: Leo Marcial M.D. 06/25/2022 8:15 PM Chest CTA 06/25/22 20:00 CT ANGIOGRAM OF THE CHEST CLINICAL HISTORY: Dyspnea. COMPARISON STUDY: Chest CT dated 10/29/2020. Chest x-ray dated 06/25/2022. TECHNIQUE: Following the IV administration of 112 cc of Optiray 320, CT angiogram of the chest was performed from the upper abdomen to the thoracic inlet utilizing the pulmonary embolus protocol. Images are reviewed in the axial, sagittal, and coronal planes. 3-D MIPS images are created and assessed. IV contrast was administered without complication. A dose lowering technique was utilized adhering to the principles of ALARA. The examination is degraded by motion artifact, as well as by streak artifact from the arms which could not be elevated above the chest. CT DOSE: 1129.51 mGy.cm FINDINGS: Thyroid: Normal in size and heterogeneous in attenuation. Thoracic aorta: There is atherosclerotic calcification of the thoracic aorta, which is normal in caliber and demonstrates bovine variant arch anatomy. No dissection is seen. Pulmonary vasculature: The pulmonary trunk is normal in caliber. There are no filling defects identified in main, lobar, or segmental pulmonary branches to suggest pulmonary embolus. Heart: The heart is normal in size and without pericardial effusion. The coronary arteries are densely calcified. Lungs and pleural spaces: An endotracheal tube terminates above the melani. Evaluation of the lung parenchyma is degraded by motion artifact. Emphysematous change is noted. Dense airspace consolidation is seen in the the left lower lobe. There is a small focus of cavitation within the left lower lobe consolidation seen on image #185. No organized fluid collection is clearly seen. Milder patchy nodular consolidation is seen throughout both lungs. There is noted along the right lower lobe pulmonary nodule seen on image #144. Foci of mucous plugging are seen throughout the left lower lobe airways. Mediastinum: There are numerous mildly enlarged mediastinal nodes. Subcarinal nodes measure up to 15 mm in short axis. Michelle: Enlarged bilateral hilar nodes measure up to 14 mm in short axis. Axillae: There is no axillary lymphadenopathy. Upper abdomen: Enteric tube terminates in the distal stomach. Partially visualized upper abdominal viscera is within normal limits. Skeletal structures: The skeletal structures appear osteopenic. Degenerative change is noted in the thoracic spine. No lytic or blastic bony lesions are seen. IMPRESSION: 1. There is no evidence of pulmonary embolus in the main, lobar, or segmental pulmonary arteries. 2. Emphysema. 3. There is dense airspace consolidation in the left lower lobe with a small focus of cavitation. 4. No organized fluid collection is clearly seen within the consolidated lung. 5. Mild patchy nodular consolidation is seen throughout both lungs. These findings likely represent multifocal pneumonia. Follow-up to resolution is recommended. 6. Mildly enlarged mediastinal and hilar lymph nodes are likely reactive. 7. There is an 8 mm right lower lobe pulmonary nodule. Follow-up is recommended as per the Fleischner criteria. See below. 8. Endotracheal and enteric tubes are in place. 9. Additional findings as above. Please refer to below summary of Fleischner criteria recommendations for follow- up of incidental CT nodules (Nica Willson, Guidelines for management of small pulmonary nodules detected on CT scans: A statement from the Fleischner Society, Radiology 237: [phone].) SOLID NODULES Solitary nodule size: <6 mm * low risk patients: no follow-up needed * high risk patients: optional CT at 12 months Solitary nodule size: 6-8 mm * low risk patients: follow-up at 6-12 months, then consider further follow-up at 18-24 months * high risk patients: initial follow-up CT at 6-12 months and then at 18-24 months if no change Solitary nodule size: >8 mm * either low or high risk patients - consider follow-up CT at 3 months, and/or CT-PET, and/or biopsy Multiple nodules size: <6 mm * low risk patients: no routine follow-up * high risk patients: optional CT at 12 months Multiple nodules size: 6-8 mm * low risk patients: follow-up at 3-6 months, then consider further follow-up at 18-24 months * high risk patients: follow-up at 3-6 months, then at 18-24 months if no change Multiple nodules size: >8 mm * low risk patients: follow-up at 3-6 months, then consider further follow-up at 18-24 months * high risk patients: follow-up at 3-6 months, then at 18-24 months if no change Note: newly detected indeterminate nodule in persons 35 years of age or older. * low risk patients: minimal or absent history of smoking and/or other known risk factors * high risk patients: history of smoking or of other known risk factors (e.g. first degree relative with lung cancer, or exposure to asbestos, radon, uranium) * if a nodule up to 8 mm is partly solid or is ground glass further follow-up is required after 24 months to exclude possible slow growing adenocarcinoma (TIFFANY) SUBSOLID NODULES Solitary pure ground-glass nodule * nodule size <6 mm - no CT follow-up required * nodule size >=6 mm - follow-up CT at 6-12 months, then every 2 years until 5 years Solitary part-solid nodule * nodule size <6 mm - no CT follow-up required * nodule size >=6 mm - follow-up CT at 3-6 months. If unchanged, and solid component remains <6 mm, then annual follow-up for 5 years Multiple subsolid nodules * nodule size <6 mm - follow-up CT at 3-6 months, consider further follow-up at 2 and 4 years if stable * nodule size >=6 mm - follow-up CT at 3-6 months, subsequent management based on the most suspicious nodule(s) ACT 112: Negative or not required by law. Electronically signed by: Leo Marcial M.D. 06/25/2022 9:51 PM Medications Administered Home Medications albuterol sulfate 2.5 mg/3 mL (0.083 %) solution for nebulization 2.5 mg inhalation DIRECTED PRN Shortness Of Breath 06/25/22 [History Confirmed 06/25/22] epinephrine 0.3 mg/0.3 mL injection, auto-injector 0.3 mg IM DIRECTED PRN Allergic Reaction 06/25/22 [History Confirmed 06/25/22] fluticasone propionate 230 mcg-salmeterol 21 mcg/actuation HFA inhaler (Advair HFA) 2 inh inhalation BID 06/25/22 [History Confirmed 06/25/22] furosemide 80 mg tablet 80 mg PO BID 06/25/22 [History Confirmed 06/25/22] tamsulosin 0.4 mg capsule 0.4 mg PO DAILY 06/25/22 [History Confirmed 06/25/22] tiotropium bromide 18 mcg capsule with inhalation device (Spiriva with HandiHaler) 18 mcg inhalation DAILY 06/25/22 [History Confirmed 06/25/22] Active Medications Vancomycin HCl 2,750 mg/ (Sodium Chloride) 555 mls @ 200 mls/hr IV NOW ONE Stop: 06/26/22 00:56 Last Admin: 06/25/22 23:33 Dose: 200 mls/hr Miscellaneous Information (Vancomycin Consult Active) 1 each N/A UD PRN PRN Reason: Consult Stop: 07/25/22 22:09 ECG Additional Comments: Sinus tachycardia with Premature atrial complexes with Aberrant conduction Biatrial enlargement Right axis deviation Pulmonary disease pattern Septal infarct , age undetermined Abnormal ECG When compared with ECG of 29-OCT-2020 08:59, Aberrant conduction is now Present QRS axis Shifted right Septal infarct is now Present ... Coding Level of Care Code Critical Care 1st 30-74 mins Diagnoses Acute hypercapnic respiratory failure J96.02 Multifocal pneumonia J18.9 CLL (chronic lymphocytic leukemia) C91.10 COPD (chronic obstructive pulmonary disease) J44.9 CHF (congestive heart failure) I50.9 HTN (hypertension) I10
[2022-06-26 00:57] LABS: iSTAT Allen Test Pass; iSTAT Art Bld Gas pCO2 Correct 93 mmHg (35-46); iSTAT Art Bld Gas pH Corrected 7.232 (7.35-7.45); iSTAT Arterial Blood Gas HCO3 39 meg/L (19-24); iSTAT Arterial Blood Gas pCO2 91 mmHg (35-46); iSTAT Arterial Blood Gas pH 7.24 (7.35-7.45); iSTAT Arterial Blood Gas pO2 115 mmHg (80-95); iSTAT Arterial Blood Gas pO2 C 118; iSTAT Carbon Dioxide > 40 mmol/L (24-31); iSTAT FiO2 50 %; iSTAT Hematocrit 43 % (42-52); iSTAT Hemoglobin 14.6 g/dl (14.0-18.0); iSTAT Potassium 5.2 mmol/L (3.3-5.0); iSTAT Site L Radial; iSTAT Sodium 136 mmol/L (135-144)
[2022-06-26] MEDS ORDERED: fentaNYL citrate 2,500 MCG/250 ML BAG IV ONE (00:58)
[2022-06-26] MEDS ORDERED: fentaNYL BOLUS from BAG IV PRN (00:59)
[2022-06-26] MEDS ORDERED: STAT IV Infusion **Titration per Protocol STA ×3 (00:59→05:21)
--- NOTE | 2022-06-26 00:59 | History and Physical Report ---
DATE OF ADMISSION: 06/25/2022 CHIEF COMPLAINT: Acute respiratory failure. HISTORY OF PRESENT ILLNESS: A 57-year-old male with past medical history significant for COPD, history of lung nodules, history of chronic right-sided heart failure, hypertension, obesity, hyperlipidemia, history of CLL, selective deficiency of immunoglobulin, ongoing tobacco abuse, presents with respiratory distress, status post intubation. The patient is currently intubated and sedated with Diprivan. It seems the patient was having shortness of breath in the last 4 days and he called his friends and when they came in, he was gasping for breath and called EMS. Per EMS, he seemed to be not speaking in any sentences, seemed to be confused and got intubated in the field and brought in here. Initial ABG showed pH of 7.16, pCO2 of 107 and on repeat ABG, pH of 7.28, pCO2 of 86, 98%. His electrolytes are okay. Lactate is 0.6. Troponin I high sensitivity 25. BNP is 63. Urinalysis +4 protein, +1 ketones. Respiratory BioFire is unremarkable. Ethyl alcohol level ok. CTA chest was done, which shows no PE, emphysema, dense airspace consolidation in the left lower lobe with small focus of cavitation, mild patchy nodular consolidation seen throughout both lungs. These findings likely represent multifocal pneumonia. Mildly enlarged mediastinal and hilar lymph nodes, likely reactive. An 8 mm right lower lobe pulmonary nodule. Currently, the patient's hemodynamics are okay, saturating okay on vent. First the patient was in the [facility] ED on 10/29/2020 with shortness of breath and hemoptysis, that time also he was intubated and the blood counts showed leukocyte, WBCs were 225 with 0 ANC, hemoglobin was 6 with normal platelet counts. At that time, CAT scan showed bilateral ground-glass and consolidative airspace opacities, mostly pronounced in the lungs posteriorly, early pneumonia. Multiple small peripheral enhancing loculated gas and fluid collection within the consolidated left lung posteriorly, likely representing intraparenchymal abscess. Initial thgought was acute leukemia and the patient was transferred to [facility] for further management. At [place] at that time , bronchoscopy showed Streptococcus anginosus and peripheral smear was consistent with CLL. His cultures grew MRSA bacteremia also and he was and extubated to room air and was discharged on Rocephin and Flagyl for necrotizing pneumonia and clindamycin for MRSA bacteremia, followed with hem/onc. He was on ibrutinib for CLL, but it was on hold because of heart failure. As per the cardiology notes, patient was again admitted on 11/13/2021 to 11/19/2021 in [facility] for right-sided heart failure. Initially when he was first admitted in 10/2020, EF was 45%, thought to be sepsis induced, but it was resolved, but now he has right-sided heart failure and he is on Lasix 80 mg b.i.d. ALLERGIES: PENICILLINS, BEE VENOM. PAST MEDICAL HISTORY: As mentioned above. PAST SURGICAL HISTORY: Colonoscopy, appendectomy. MEDICATIONS: The patient is on albuterol nebulization p.r.n., epinephrine p.r.n., Advair HFA 2 inhalations b.i.d., Lasix 80 mg p.o. b.i.d., Flomax 0.4 mg p.o. daily, Spiriva inhaler 18 mcg p.o. daily. FAMILY HISTORY: Significant for sister has chronic kidney disease; mother had lung cancer and tobacco abuse; father had tobacco abuse and in sleep. SOCIAL HISTORY: Smoking half pack a day for 35 years. Alcohol, as per [employer] used to drink 6 beers daily, currently seems to be drinking 1-2 beers a month. No drug use as per Epic. REVIEW OF SYSTEMS: Unobtainable at this time as the patient is intubated and sedated. PHYSICAL EXAMINATION: GENERAL: The patient is just intubated, on sedation. VITAL SIGNS: Temperature 36.9, pulse 110, respiratory rate 22, blood pressure 118/68, oxygen 97% on mechanical vent 70% FiO2. HEENT: Pupils equal, round and sluggishly react to light. NECK: No obvious neck masses seen. CARDIOVASCULAR: S1 and S2 heard. Regular rate and rhythm. No murmur, no gallop. RESPIRATORY SYSTEM: Normal AP diameter. No accessory muscle use. Mild bilateral rhonchi heard. No obvious wheezing. ABDOMEN: Soft, bowel sounds present, no distention. CENTRAL NERVOUS SYSTEM: Status post intubated and sedated. EXTREMITIES: No edema, no erythema. LABORATORY DATA: WBC 12.6, hemoglobin 15.2, hematocrit 48.9, platelets 117. PT 11.1, INR 1.1, APTT 34.5. ABG, currently pH was 7.28, pCO2 of 86, pO2 of 114, bicarbonate 40. Sodium 139, potassium 4.8, chloride 95, CO2 of 37, BUN 23, creatinine 1.1, serum glucose 156. Lactate 0.6, calcium 9.4, magnesium 2.1, total bilirubin 1.1, total bilirubin 0.4, AST 10, ALT 16, alkaline phosphatase 95. Troponin I high sensitivity 25.8. BNP 63, lipase 3. Urinalysis, +4 protein. Ethyl alcohol less than 10. Respiratory BioFire negative. IMAGING: CTA chest, no PE, emphysema, dense airspace consolidation in the left lower lobe with a small focus of cavitation. No organized fluid collection seen within the consolidated lung, mild patchy nodular consolidation is seen in both lungs. These findings likely represent multifocal pneumonia. Mildly enlarged mediastinal and hilar lymph nodes are likely reactive. An 8 mm right lower lobe pulmonary nodule, followup is recommended. Endotracheal and enteral tubes are in place. Chest x-ray: Endotracheal and enteral tubes are in place as above. Cardiomegaly, emphysema, pulmonary vascular congestion, asymmetric airspace opacities in the left upper lobe, could represent pulmonary edema or infectious or inflammatory pneumonitis, clinical correlation recommended. EKG: Sinus tachycardia with PACs with aberrant conduction at a rate of 128, biatrial enlargement, QTc of 432. ASSESSMENT AND PLAN: This 57-year-old male presents with acute respiratory failure. 1. Acute respiratory failure secondary to most likely chronic obstructive pulmonary disease exacerbation, multifocal pneumonia. He has a history of methicillin-resistant Staphylococcus aureus bacteremia and also history of Streptococcus anginosus. Emergency Room gave empiric vancomycin, cefepime, and Flagyl. As the patient is allergic to penicillins, we will continue with vancomycin, Invanz and doxycycline. Follow the cultures. Ventilator management as per critical care. Place on gentle fluids. Also, possibly chronic obstructive pulmonary disease exacerbation from above. We will place him on nebulizers around the clock and p.r.n. and IV Solu-Medrol 40 mg t.i.d. and closely monitor in the intensive care unit with critical care help.History of necrotizing pneumonia. 2. History of chronic right-sided heart failure. Currently, does not seems to be in volume overload. Getting gentle fluids. Currently holding his home Lasix. Monitor for any volume overload. Restart Lasix as soon as possible. 3. History of benign prostatic hyperplasia. Continue his Flomax. 4. Tobacco abuse. Needs counseling when stable. 5. Obesity. There is a plan for sleep study as outpatient. Can get nocturnal pulse oximetry while he is stable. 6. History of chronic lymphocytic leukemia, he is following with hematology/oncology. He was on ibrutinib, but it was held because of the heart failure. 7. Thrombocytopenia, platelets 117, we will follow the laboratories. 8. Deep venous thrombosis with Lovenox. Monitor the platelets. DISPOSITION: Closely monitor in the ICU. Level 1, full code for now. Job ID: [id number] MTDD
[2022-06-26] MEDS ORDERED: ALBUTEROL 0.083% NEBU SOLN 3 ML VIAL INH SCH (01:00)
[2022-06-26] MEDS: ALBUT/IPRATROP 3MG/0.5MG NEB 3 ML VIAL NEB PRN ×2 (01:01→22:21)
[2022-06-26] MEDS: SODIUM CHLORIDE 0.9% 1000ML 1,000 ML IV SCH ×2 (01:09→11:51)
[2022-06-26] MEDS: fentaNYL citrate 2,500 MCG/250 ML BAG IV SCH ×2 (01:10→14:48)
[2022-06-26] MEDS ORDERED: VECURONIUM BROMIDE 10 MG VIAL IV STA (01:22)
[2022-06-26] MEDS ORDERED: VECURONIUM BROMIDE 10 MG VIAL IV ONE (01:25)
[2022-06-26] MEDS: ERTAPENEM SODIUM 1,000 MG in SYRINGE 0 ML IV SCH (01:36)
[2022-06-26] MEDS: DOXYCYCLINE HYCLATE 100 MG in DEXTROSE 5% 100 ML IV SCH ×2 (01:36→14:37)
[2022-06-26] MEDS ORDERED: NOREPINEPHRINE/D5W 4 MG/250 ML IV ONE (02:02)
[2022-06-26 02:10] LABS: iSTAT Art Bld Gas pCO2 Correct 69 mmHg (35-46); iSTAT Art Bld Gas pH Corrected 7.323 (7.35-7.45); iSTAT Arterial Blood Gas HCO3 35 meg/L (19-24); iSTAT Arterial Blood Gas pCO2 67 mmHg (35-46); iSTAT Arterial Blood Gas pH 7.33 (7.35-7.45); iSTAT Arterial Blood Gas pO2 70 mmHg (80-95); iSTAT Arterial Blood Gas pO2 C 73; iSTAT Carbon Dioxide 37 mmol/L (24-31); iSTAT Hematocrit 39 % (42-52); iSTAT Hemoglobin 13.3 g/dl (14.0-18.0); iSTAT Potassium 5.6 mmol/L (3.3-5.0); iSTAT Site Art Line; iSTAT Sodium 136 mmol/L (135-144)
[2022-06-26] MEDS: NOREPINEPHRINE/D5W 4 MG/250 ML PLCT IV SCH ×3 (02:12→14:50)
--- NOTE | 2022-06-26 02:15 | Procedure Note ---
Procedure Note Date of Service June 26, 2022 Note ARTERIAL LINE PROCEDURE NOTE: Procedure: Arterial Line Placement Proceduralist: Nj CISNEROS ([facility] Attending: Dr. Easley Indication: Monitoring on Pressors Anesthesia: [x]Lidocaine 1% Emergent consent was implied as patient intubated and sedated requiring arterial line for frequent ABG monitoring and ventilator adjustment Allens test was performed to ensure adequate perfusion. Patients RIGHT WRIST wrist was prepped and draped in the usual sterile fashion. Ultrasound guidance was used to directly visualize needle placement. A 20g Arrow arterial line was introduced into the RIGHT RADIAL artery. Catheter was threaded, and the needle was removed with appropriate blood return. Good waveform was observed. The patient tolerated the procedure well. The line was secured using suture and covered with sterile dressing Blood Loss: Minimal Complications: None Procedural Ultrasound Guidance: Procedure Date: 06/26/22 Indication: Direct Visualization for arterial line placement Attending: Dr. Easley Artery Identified: YES Line confirmed in Artery with ultrasound: YES Complications: NONE Patient tolerated procedure: WELL Coding CPT Codes Tubes, Drains, and Vasc Access - Tubes, Drains, and Vasc Access: [id number] Insertion Catheter, Artery ([id number]) Tubes, Drains, and Vasc Access - Tubes, Drains, and Vasc Access: [id number] Ultrasound Guidance For Vascular ([id number]) [facility] [place] Procedure Codes (Charges) Tubes, Drains, and Vasc Access Procedure 1: Tubes, Drains, and Vasc Access: [id number] Insertion Catheter, Artery Procedure 2: Tubes, Drains, and Vasc Access: [id number] Ultrasound Guidance For Vascular
[2022-06-26] MEDS ORDERED: PROPOFOL IV EMULSION 10 MG/ML 100 ML VIAL IV ONE (03:29)
[2022-06-26 04:58] LABS: iSTAT Art Bld Gas pCO2 Correct 57 mmHg (35-46); iSTAT Art Bld Gas pH Corrected 7.381 (7.35-7.45); iSTAT Arterial Blood Gas HCO3 33 meg/L (19-24); iSTAT Arterial Blood Gas pCO2 55 mmHg (35-46); iSTAT Arterial Blood Gas pH 7.39 (7.35-7.45); iSTAT Arterial Blood Gas pO2 64 mmHg (80-95); iSTAT Arterial Blood Gas pO2 C 66; iSTAT Carbon Dioxide 35 mmol/L (24-31); iSTAT Hematocrit 40 % (42-52); iSTAT Hemoglobin 13.6 g/dl (14.0-18.0); iSTAT Potassium 4.7 mmol/L (3.3-5.0); iSTAT Site Art Line; iSTAT Sodium 136 mmol/L (135-144)
[2022-06-26] MEDS ORDERED: PROPOFOL BOLUS FROM BAG IV PRN ×2 (05:21→05:23)
[2022-06-26] MEDS: propofoL 1,000 MG/100 ML VIAL IV SCH ×8 (05:45→23:11)
[2022-06-26 06:40] LABS: ALC (manual) 14.14 K/uL (1.2-3.4); ANC (manual) 3.71 K/uL (1.4-6.5); Hematocrit (blood only) 41.9 % (42.0-52.0); Hemoglobin 13.5 g/dl (14.0-18.0); Lymphocytes # (manual) 14.14 K/uL (1.2-3.4); Lymphocytes % (manual) 80 %; Mean Corpuscular Hemoglobin 30.8 pg (25.0-34.0); Mean Corpuscular Hgb Conc 32.2 g/dL (32.0-36.0); Mean Corpuscular Volume 95.4 fL (80.0-100.0); Mean Platelet Volume 11.6 fL (9.4-12.4); Neutrophils # (manual) 3.71 K/uL (1.40-6.50); Neutrophils % (manual) 21 %; Platelet Count 138 K/uL (130-400); RDW Coefficient of Variation 14.6 % (11.5-14.5); RDW Standard Deviation 51.5 fL (36.4-46.3); Red Blood Count 4.39 M/uL (4.70-6.10); White Blood Count 17.67 K/ul (4.8-10.8)
[2022-06-26 07:19] LABS: Calcium 9.7 mg/dl (8.5-10.1); Magnesium 2.1 mg/dl (1.7-2.4); Potassium 4.9 mmol/L (3.5-5.1)
[2022-06-26 07:25] LABS: BUN Creatinine Ratio 23.5 (10-20); Creatinine Clr Calc Pharmacy 78.1 ml/min; Est GFR (African American) 68.4 ml/min
[2022-06-26] MEDS: TAMSULOSIN HCL 0.4 MG CAP PO SCH (07:26)
[2022-06-26] MEDS: ICU Protocol for HYPERglycemia SCH ×4 (07:26→19:43)
[2022-06-26] MEDS: ENOXAPARIN INJ 40 MG/0.4 ML SYR SQ SCH (07:26)
[2022-06-26] MEDS: methylPREDNISolone 40 MG in SYRINGE 0 ML IV SCH ×3 (07:26→23:11)
[2022-06-26] MEDS: ALBUT/IPRATROP 3MG/0.5MG NEB 3 ML VIAL NEB SCH ×4 (07:27→19:29)
--- NOTE | 2022-06-26 07:27 | Critical Care Progress Note ---
Date of Service June 26, 2022 Assessment & Plan (1) Acute hypercapnic respiratory failure: Plan: Reason Critically Ill: Patient admitted post intubation in the field secondary to hypercarbic respiratory failure. Patient is reported to be continued every day smoker. Imaging revealing for bilateral lobe consolidations, noted leukocytosis and thick yellow sputum. Started on broad spectrum abx. Continue supportive care and wean from ventilator as appropriate. Neuro - Sedated for mechanical ventilation CAM ICU: JESSE - Goal LIT -2 continue propofol, Fentanyl infusion added for sedation - Restraint of wrists if needed Cardiac - SEPSIS, HFpEF, Elevated HScTNI Sepsis without evidence of organ dysfunction/shock at this time ECHO from 11/11 with HFpEF of 55% with RV dilation- reported negative stress test 01/11 Hold ARB at this time- follow hemodynamics and renal function ECG revealed without acute STEMI- likely demand type II elevation in the setting of hypercarbic respiratory failure Vasopressor agents as needed for hypotension- likely related to sedation at this time Respiratory - Hypercarbic Respiratory failure requiring mechanical ventilation, COPD/Emphysema, Bilateral Pneumonia, Pleural Effusion - Remains with respiratory acidosis- continue to adjust ventilator and nebulizer therapy - ETT advanced after arrival to EMD- daily CXR while intubated - ABG as needed - if no improvement and need for frequent ABGS will place arterial line - Vent management PRVC- air trapping and increase peak pressures- sedation increased and dose of vecuronium x1 now - Await blood culture results, continue with Vanc, Cefepime, Flagyl- aspergillus and legionella antigen pending as well as Beta-d Glucan - Daily awakenings and spont trials - Pleural Effusion noted on left side- chronic appearing - evaluate with bedside ultrasound reveals - MRSA nares negative, continue vanc until cultures result as patient had previous MRSA infection GI - No acute needs - NPO continue with OGT to LIWS RENAL/LYTES - Respiratory acidosis with Metabolic Alkalosis uncompensated, CKD - As above - follow renal function avoid nephrotoxic agents as able - ICU electrolyte protocol - No acute needs ENDO - Elevated serum glucose without diagnosis of diabetes - ICU hyperglycemic protocol - follow while on steroids HEME - CLL - treated at [facility] in 2020- ibrutinib therapy appears to be on hold secondary to CHF - [facility] Dr. Ramirez - WBC 12 with lymphocytes at 10.7 ID - Pneumonia bilateral Patient with history of PNA previously with Strep angiosus and MSSA- MRSA swab pending on arrival Continue broad spectrum abx- de-escalate when appropriate- Doxy, Vanco, Ertapenem, Blood Cultures pending Aspergillus pending Legionella urine AG pending LINES/IV ACCESS - PIV, Ramon, ETT, OGT Continue use of these lines DVT PROPHYLAXIS - SCDs, Lovenox DISPO: ICU while intubated and sedated Thank you for allowing us to participate in the care of this patient. Please refer to my attending physician's documentation for any further recommendations. (2) Multifocal pneumonia: (3) CLL (chronic lymphocytic leukemia): (4) COPD (chronic obstructive pulmonary disease): (5) CHF (congestive heart failure): (6) HTN (hypertension): Admission and Anticipated Discharge Date Admission Date: June 25, 2022 Supervising Physician Co-Signing Physician Notes Dr. Murphy was resident physician during care of patient. I separately evaluated patient for sung portions of the history and the exam. I was present during the critical portion of medical decision making, and I discussed the case with the resident. I generally agree with the findings and plan. Continue broad-spectrum antibiotics, consented daughter for bronchoscopy given prior lung findings and culture data as revealed and prior records patient warrants bronchoscopy to obtain culture specimen. Ongoing tobacco abuse. COPD changes in the lung. History of right-sided heart failure. Patient critically ill I have personally spent 45 minutes of critical care time in the direct management of this patient. This is a life/limb threatening event. This includes time spent evaluating patient, direct bedside care, chart review, placing orders, interpretation of diagnostic studies, discussion with consultants, patient, and/or family members regarding treatment decisions, as well as other required patient management activities. This time is exclusive of all separately billable procedures, and teaching time and separate from and in addition to any other critical care service time. Subjective Intubated Physical Exam Physical Exam: Gen: intubated and sedated HEENT: AT NC Neuro: sedated Resp: ventilating appropriately CV: clinically well perfused GI: non-distended : Ramon in place MSK: no gross deformities Psych: intubated and sedated Results & Data Results & Data ([facility]) Vital Signs (Past 12 Hours) Vital Signs Temp Pulse Pulse Resp BP BP Pulse Ox 06/26/22 06:00 37.2 C 78 22 06/26/22 05:30 37.3 C 79 22 88 L 06/26/22 05:30 124/70 06/26/22 05:00 37.3 C 77 22 87 L 06/26/22 05:00 119/67 06/26/22 04:30 37.5 C 86 26 H 06/26/22 04:00 37.5 C 86 26 H 06/26/22 03:30 37.5 C 88 26 H 06/26/22 03:30 123/73 06/26/22 03:00 37.5 C 79 26 H 86 L 06/26/22 03:00 128/79 06/26/22 02:30 37.5 C 82 26 H 06/26/22 02:30 99/65 L 06/26/22 02:16 37.4 C 83 26 H 84 L 06/26/22 02:16 137/82 06/26/22 02:00 37.6 C H 93 H 13 91 06/26/22 01:30 37.8 C H 95 H 24 06/26/22 01:00 37.6 C H 99 H 24 93 06/26/22 00:59 81/57 L 06/26/22 00:59 37.6 C H 98 H 28 H 94 06/26/22 00:43 37.5 C 105 H 26 H 98 06/26/22 00:43 92/65 L 06/26/22 04:00 06/26/22 03:43 87 26 H 94 06/26/22 00:42 28 H 06/26/22 02:08 88 26 H 95 06/26/22 00:38 37.5 C 92 H 26 H 88/51 L 92 06/26/22 00:38 06/26/22 00:38 37.4 C 92 H 26 H 88/51 L 95 06/26/22 01:01 100 H 28 H 94 06/26/22 00:41 37.5 C 107 H 26 H 99 06/26/22 00:41 109/73 06/26/22 00:40 37.5 C 107 H 26 H 06/26/22 00:35 99 H 20 06/26/22 00:00 99 H 26 H 96 06/26/22 00:00 120/69 06/25/22 23:50 100 H 26 H 95 06/25/22 23:46 122/97 06/25/22 23:46 107 H 0 L 95 06/25/22 23:40 96 H 26 H 97 06/25/22 23:30 94 H 26 H 97 06/25/22 23:30 113/68 06/25/22 23:20 96 H 26 H 97 06/25/22 23:15 105/73 06/25/22 23:15 97 H 26 H 97 06/25/22 23:10 95 H 26 H 96 06/25/22 23:00 98 H 26 H 96 06/25/22 23:00 100/65 06/25/22 22:59 98/67 L 06/25/22 22:59 99 H 26 H 96 06/25/22 22:50 99 H 26 H 96 06/25/22 22:45 93/64 L 06/25/22 22:45 100 H 26 H 96 06/25/22 22:40 101 H 26 H 96 06/25/22 22:30 101 H 26 H 96 06/25/22 22:30 99/66 L 06/25/22 22:20 103 H 26 H 96 06/25/22 22:15 105 H 26 H 96 06/25/22 22:15 94/58 L 06/25/22 22:10 105 H 26 H 96 06/25/22 22:00 107 H 26 H 96 06/25/22 22:00 104/68 06/25/22 23:50 36.9 C 97 H 26 H 106/62 96 06/25/22 23:08 26 H 06/25/22 21:50 110 H 26 H 97 06/25/22 21:45 110 H 26 H 99 06/25/22 21:45 118/68 06/25/22 21:40 111 H 26 H 98 06/25/22 21:34 113 H 26 H 96 06/25/22 21:34 114/66 06/25/22 21:15 118/76 06/25/22 21:15 117 H 26 H 96 06/25/22 21:10 116 H 26 H 95 06/25/22 21:00 119 H 26 H 89 L 06/25/22 21:00 125/76 06/25/22 20:50 122 H 26 H 92 06/25/22 20:45 146/89 H 06/25/22 20:45 124 H 26 H 90 06/25/22 20:40 122 H 26 H 92 06/25/22 20:37 125 H 23 94 06/25/22 20:37 167/98 H 06/25/22 20:30 120 H 26 H 96 06/25/22 20:20 128 H 24 100 06/25/22 20:10 127 H 5 L 100 06/25/22 20:03 126 H 22 100 06/25/22 21:10 06/25/22 20:15 26 H 06/25/22 19:52 127 H 22 100 06/25/22 21:30 36.9 C 109 H 26 H 114/66 99 06/25/22 19:54 115 H 26 H 125/76 95 06/25/22 20:40 91 06/25/22 20:19 120 H 22 100 O2 Del Method FiO2 06/26/22 06:00 06/26/22 05:30 06/26/22 05:30 06/26/22 05:00 06/26/22 05:00 06/26/22 04:30 06/26/22 04:00 06/26/22 03:30 06/26/22 03:30 06/26/22 03:00 06/26/22 03:00 06/26/22 02:30 06/26/22 02:30 06/26/22 02:16 06/26/22 02:16 06/26/22 02:00 06/26/22 01:30 06/26/22 01:00 06/26/22 00:59 06/26/22 00:59 06/26/22 00:43 06/26/22 00:43 06/26/22 04:00 40 06/26/22 03:43 45 06/26/22 00:42 55 06/26/22 02:08 50 06/26/22 00:38 Mechanical Vent 06/26/22 00:38 Mechanical Vent 06/26/22 00:38 Mechanical Vent 06/26/22 01:01 Mechanical Vent 60 06/26/22 00:41 06/26/22 00:41 06/26/22 00:40 06/26/22 00:35 06/26/22 00:00 06/26/22 00:00 06/25/22 23:50 06/25/22 23:46 06/25/22 23:46 06/25/22 23:40 06/25/22 23:30 06/25/22 23:30 06/25/22 23:20 06/25/22 23:15 06/25/22 23:15 06/25/22 23:10 06/25/22 23:00 06/25/22 23:00 06/25/22 22:59 06/25/22 22:59 06/25/22 22:50 06/25/22 22:45 06/25/22 22:45 06/25/22 22:40 06/25/22 22:30 06/25/22 22:30 06/25/22 22:20 06/25/22 22:15 06/25/22 22:15 06/25/22 22:10 06/25/22 22:00 06/25/22 22:00 06/25/22 23:50 Mechanical Vent 70 06/25/22 23:08 70 06/25/22 21:50 06/25/22 21:45 06/25/22 21:45 06/25/22 21:40 06/25/22 21:34 06/25/22 21:34 06/25/22 21:15 06/25/22 21:15 06/25/22 21:10 06/25/22 21:00 06/25/22 21:00 06/25/22 20:50 06/25/22 20:45 06/25/22 20:45 06/25/22 20:40 06/25/22 20:37 06/25/22 20:37 06/25/22 20:30 06/25/22 20:20 06/25/22 20:10 06/25/22 20:03 06/25/22 21:10 70 06/25/22 20:15 50 06/25/22 19:52 100 06/25/22 21:30 Mechanical Vent 70 06/25/22 19:54 Mechanical Vent 06/25/22 20:40 Mechanical Vent 50 06/25/22 20:19 Mechanical Vent 50 Laboratory Results 06/26/22 06/26/22 06/26/22 Range/Units 07:30 04:45 04:39 WBC (4.8-10.8) K/ul RBC (4.70-6.10) M/uL Hgb (14.0-18.0) g/dl POC Hgb 13.6 L (14.0-18.0) g/dl Hct (42.0-52.0) % POC Hct 40 L (42-52) % MCV (80.0-100.0) fL MCH (25.0-34.0) pg MCHC (32.0-36.0) g/dL RDW Std Deviation (36.4-46.3) fL RDW Coeff of Argenis (11.5-14.5) % Plt Count (130-400) K/uL MPV (9.4-12.4) fL Neutrophils % (Manual) % Lymphocytes % (Manual) % Monocytes % (Manual) % Neutrophils # (Manual) (1.40-6.50) K/uL Total Absolute Neuts (1.4-6.5) K/uL Lymphocytes # (Manual) (1.2-3.4) K/uL Total Abs Lymphocytes (1.2-3.4) K/uL Monocytes # (Manual) (0.11-0.59) K/uL PT (9.0-12.0) Seconds INR (0.9-1.1) APTT (21.0-31.0) Seconds PTT Ratio Sample Site Art Line POC pH 7.39 (7.35-7.45) POC pCO2 55 H (35-46) mmHg POC pO2 64 L (80-95) mmHg POC HCO3 33 H (19-24) isaiah/L POC Total CO2 35 H (24-31) mmol/L POC Base Excess 8.0 H (-9-1.8) isaiah/L ABG pH (7.35-7.45) ABG pH (Temp Correct) 7.381 (7.35-7.45) ABG pCO2 (35-46) mmHg ABG pCO2 (Temp Corrct 57 H (35-46) mmHg ABG pO2 (80-95) mmHg POC ABG pO2 at Pt Temp 66 ABG HCO3 (19-24) mmol/L POC ABG O2 Sat 91.0 (90-95) % ABG O2 Saturation (90-95) % ABG Base Excess (-9-1.8) mEq/L Sim Test NA (Pos) Oxygen Given O2 Delivery Device Ventilator POC O2 Rate 26 POC FiO2 % Tidal Volume 450 PEEP 5 POC Sodium 136 (135-144) mmol/L Sodium 139 (136-145) mmol/L POC Potassium 4.7 (3.3-5.0) mmol/L Potassium 4.9 (3.5-5.1) mmol/L Chloride 98 (98-107) mmol/L Carbon Dioxide 31 (21-32) mmol/L Anion Gap 10 (3-11) BUN 31 H (6-23) mg/dl Creatinine 1.32 (0.6-1.4) mg/dl Est Cr Clr Drug Dosing 78.1 ml/min Est GFR ( Amer) 68.4 ml/min Est GFR (Non-Af Amer) 59.0 ml/min BUN/Creatinine Ratio 23.5 H (10-20) Glucose 170 H (70-99(Fasting)) mg/dl POC Glucose (70-99) mg/dl Lactate (0.4-2.0) mmol/L Calcium 9.7 (8.5-10.1) mg/dl Magnesium 2.1 (1.7-2.4) mg/dl Total Bilirubin (0.2-1.0) mg/dl Direct Bilirubin (0-0.2) mg/dl AST (13-39) U/L ALT (7-52) U/L Alkaline Phosphatase (34-104) U/L Troponin I High Sens Pending (0-20) pg/ml B-Natriuretic Peptide (0-100) pg/ml Total Protein (6.0-8.3) gm/dl Albumin (3.4-5.0) gm/dl Lipase (11-82) U/L Procalcitonin (0-0.5) ng/ml Urine Color Urine Appearance (Clear) Urine pH (4.5-7.5) Ur Specific [place] (1.000-1.030) Urine Protein (Negative) Urine Glucose (UA) (Negative) Urine Ketones (Negative) Urine Blood (Negative) Urine Nitrite (Negative) Urine Bilirubin (Negative) Urine Urobilinogen (Negative) Ur Leukocyte Esterase (Negative) Urine WBC (Auto) (0-5) /hpf Urine RBC (Auto) (0-4) /hpf U Hyaline Cast (Auto) (0-5) /lpf U Epithel Cells (Auto) (0-5) /lpf Urine Bacteria (Auto) (Negative) Nasal Screen MRSA (PCR) (Negative) Ethyl Alcohol mg/dL (<10.0) mg/dl Adenovirus (PCR) (NotDetected) B. pertussis DNA (PCR) (NotDetected) B.parapertussis DNA PCR (NotDetected) C. pneumoniae DNA (PCR) (NotDetected) Coronavirus OC43 (PCR) (NotDetected) Coronavirus HKU1 (PCR) (NotDetected) Coronavirus 229E (PCR) (NotDetected) SARS-CoV-2 (PCR) (NotDetected) Coronavirus NL63 (PCR) (NotDetected) Human Metapneumovir PCR (NotDetected) Influenza Type A (PCR) (NotDetected) Influenza Type B (PCR) (NotDetected) Urine Legionella Ag M. pneumoniae (PCR) (NotDetected) Parainfluenza 1 (PCR) (NotDetected) Parainfluenza 2 (PCR) (NotDetected) Parainfluenza 3 (PCR) (NotDetected) Parainfluenza 4 (PCR) (NotDetected) A. galactomannan Ag A. galactomannan Ag Idx RSV (PCR) (NotDetected) Entero/Rhino (PCR) (NotDetected) Beta-(1,3)-D-Glucan B-(1,3)-D-Glucan Intrp 06/26/22 06/26/22 06/26/22 Range/Units 04:39 01:57 01:15 WBC 17.67 H (4.8-10.8) K/ul RBC 4.39 L (4.70-6.10) M/uL Hgb 13.5 L (14.0-18.0) g/dl POC Hgb 13.3 L (14.0-18.0) g/dl Hct 41.9 L (42.0-52.0) % POC Hct 39 L (42-52) % MCV 95.4 (80.0-100.0) fL MCH 30.8 (25.0-34.0) pg MCHC 32.2 (32.0-36.0) g/dL RDW Std Deviation 51.5 H (36.4-46.3) fL RDW Coeff of Argenis 14.6 H (11.5-14.5) % Plt Count 138 (130-400) K/uL MPV 11.6 (9.4-12.4) fL Neutrophils % (Manual) 21 % Lymphocytes % (Manual) 80 % Monocytes % (Manual) % Neutrophils # (Manual) 3.71 (1.40-6.50) K/uL Total Absolute Neuts 3.71 (1.4-6.5) K/uL Lymphocytes # (Manual) 14.14 H (1.2-3.4) K/uL Total Abs Lymphocytes 14.14 H (1.2-3.4) K/uL Monocytes # (Manual) (0.11-0.59) K/uL PT (9.0-12.0) Seconds INR (0.9-1.1) APTT (21.0-31.0) Seconds PTT Ratio Sample Site Art Line POC pH 7.33 L (7.35-7.45) POC pCO2 67 H (35-46) mmHg POC pO2 70 L (80-95) mmHg POC HCO3 35 H (19-24) isaiah/L POC Total CO2 37 H (24-31) mmol/L POC Base Excess 9.0 H (-9-1.8) isaiah/L ABG pH (7.35-7.45) ABG pH (Temp Correct) 7.323 L (7.35-7.45) ABG pCO2 (35-46) mmHg ABG pCO2 (Temp Corrct 69 H (35-46) mmHg ABG pO2 (80-95) mmHg POC ABG pO2 at Pt Temp 73 ABG HCO3 (19-24) mmol/L POC ABG O2 Sat 92.0 (90-95) % ABG O2 Saturation (90-95) % ABG Base Excess (-9-1.8) mEq/L Sim Test NA (Pos) Oxygen Given O2 Delivery Device Ventilator POC O2 Rate 28 POC FiO2 % Tidal Volume 450 PEEP 5 POC Sodium 136 (135-144) mmol/L Sodium (136-145) mmol/L POC Potassium 5.6 H (3.3-5.0) mmol/L Potassium (3.5-5.1) mmol/L Chloride (98-107) mmol/L Carbon Dioxide (21-32) mmol/L Anion Gap (3-11) BUN (6-23) mg/dl Creatinine (0.6-1.4) mg/dl Est Cr Clr Drug Dosing ml/min Est GFR ( Amer) ml/min Est GFR (Non-Af Amer) ml/min BUN/Creatinine Ratio (10-20) Glucose (70-99(Fasting)) mg/dl POC Glucose (70-99) mg/dl Lactate (0.4-2.0) mmol/L Calcium (8.5-10.1) mg/dl Magnesium (1.7-2.4) mg/dl Total Bilirubin (0.2-1.0) mg/dl Direct Bilirubin (0-0.2) mg/dl AST (13-39) U/L ALT (7-52) U/L Alkaline Phosphatase (34-104) U/L Troponin I High Sens (0-20) pg/ml B-Natriuretic Peptide (0-100) pg/ml Total Protein (6.0-8.3) gm/dl Albumin (3.4-5.0) gm/dl Lipase (11-82) U/L Procalcitonin (0-0.5) ng/ml Urine Color Urine Appearance (Clear) Urine pH (4.5-7.5) Ur Specific [place] (1.000-1.030) Urine Protein (Negative) Urine Glucose (UA) (Negative) Urine Ketones (Negative) Urine Blood (Negative) Urine Nitrite (Negative) Urine Bilirubin (Negative) Urine Urobilinogen (Negative) Ur Leukocyte Esterase (Negative) Urine WBC (Auto) (0-5) /hpf Urine RBC (Auto) (0-4) /hpf U Hyaline Cast (Auto) (0-5) /lpf U Epithel Cells (Auto) (0-5) /lpf Urine Bacteria (Auto) (Negative) Nasal Screen MRSA (PCR) Negative (Negative) Ethyl Alcohol mg/dL (<10.0) mg/dl Adenovirus (PCR) (NotDetected) B. pertussis DNA (PCR) (NotDetected) B.parapertussis DNA PCR (NotDetected) C. pneumoniae DNA (PCR) (NotDetected) Coronavirus OC43 (PCR) (NotDetected) Coronavirus HKU1 (PCR) (NotDetected) Coronavirus 229E (PCR) (NotDetected) SARS-CoV-2 (PCR) (NotDetected) Coronavirus NL63 (PCR) (NotDetected) Human Metapneumovir PCR (NotDetected) Influenza Type A (PCR) (NotDetected) Influenza Type B (PCR) (NotDetected) Urine Legionella Ag M. pneumoniae (PCR) (NotDetected) Parainfluenza 1 (PCR) (NotDetected) Parainfluenza 2 (PCR) (NotDetected) Parainfluenza 3 (PCR) (NotDetected) Parainfluenza 4 (PCR) (NotDetected) A. galactomannan Ag A. galactomannan Ag Idx RSV (PCR) (NotDetected) Entero/Rhino (PCR) (NotDetected) Beta-(1,3)-D-Glucan B-(1,3)-D-Glucan Intrp 06/26/22 06/26/22 06/26/22 Range/Units 00:57 00:48 00:42 WBC (4.8-10.8) K/ul RBC (4.70-6.10) M/uL Hgb (14.0-18.0) g/dl POC Hgb 14.6 (14.0-18.0) g/dl Hct (42.0-52.0) % POC Hct 43 (42-52) % MCV (80.0-100.0) fL MCH (25.0-34.0) pg MCHC (32.0-36.0) g/dL RDW Std Deviation (36.4-46.3) fL RDW Coeff of Argenis (11.5-14.5) % Plt Count (130-400) K/uL MPV (9.4-12.4) fL Neutrophils % (Manual) % Lymphocytes % (Manual) % Monocytes % (Manual) % Neutrophils # (Manual) (1.40-6.50) K/uL Total Absolute Neuts (1.4-6.5) K/uL Lymphocytes # (Manual) (1.2-3.4) K/uL Total Abs Lymphocytes (1.2-3.4) K/uL Monocytes # (Manual) (0.11-0.59) K/uL PT (9.0-12.0) Seconds INR (0.9-1.1) APTT (21.0-31.0) Seconds PTT Ratio Sample Site L Radial POC pH 7.24 L (7.35-7.45) POC pCO2 91 H (35-46) mmHg POC pO2 115 H (80-95) mmHg POC HCO3 39 H (19-24) isaiah/L POC Total CO2 > 40 H* (24-31) mmol/L POC Base Excess 11.0 H (-9-1.8) isaiah/L ABG pH (7.35-7.45) ABG pH (Temp Correct) 7.232 L (7.35-7.45) ABG pCO2 (35-46) mmHg ABG pCO2 (Temp Corrct 93 H (35-46) mmHg ABG pO2 (80-95) mmHg POC ABG pO2 at Pt Temp 118 ABG HCO3 (19-24) mmol/L POC ABG O2 Sat 97.0 H (90-95) % ABG O2 Saturation (90-95) % ABG Base Excess (-9-1.8) mEq/L Sim Test Pass (Pos) Oxygen Given O2 Delivery Device Ventilator POC O2 Rate 26 POC FiO2 50 % Tidal Volume 450 PEEP 5 POC Sodium 136 (135-144) mmol/L Sodium (136-145) mmol/L POC Potassium 5.2 H (3.3-5.0) mmol/L Potassium (3.5-5.1) mmol/L Chloride (98-107) mmol/L Carbon Dioxide (21-32) mmol/L Anion Gap (3-11) BUN (6-23) mg/dl Creatinine (0.6-1.4) mg/dl Est Cr Clr Drug Dosing ml/min Est GFR ( Amer) ml/min Est GFR (Non-Af Amer) ml/min BUN/Creatinine Ratio (10-20) Glucose (70-99(Fasting)) mg/dl POC Glucose 132 H (70-99) mg/dl Lactate (0.4-2.0) mmol/L Calcium (8.5-10.1) mg/dl Magnesium (1.7-2.4) mg/dl Total Bilirubin (0.2-1.0) mg/dl Direct Bilirubin (0-0.2) mg/dl AST (13-39) U/L ALT (7-52) U/L Alkaline Phosphatase (34-104) U/L Troponin I High Sens 45.1 H D (0-20) pg/ml B-Natriuretic Peptide (0-100) pg/ml Total Protein (6.0-8.3) gm/dl Albumin (3.4-5.0) gm/dl Lipase (11-82) U/L Procalcitonin (0-0.5) ng/ml Urine Color Urine Appearance (Clear) Urine pH (4.5-7.5) Ur Specific [place] (1.000-1.030) Urine Protein (Negative) Urine Glucose (UA) (Negative) Urine Ketones (Negative) Urine Blood (Negative) Urine Nitrite (Negative) Urine Bilirubin (Negative) Urine Urobilinogen (Negative) Ur Leukocyte Esterase (Negative) Urine WBC (Auto) (0-5) /hpf Urine RBC (Auto) (0-4) /hpf U Hyaline Cast (Auto) (0-5) /lpf U Epithel Cells (Auto) (0-5) /lpf Urine Bacteria (Auto) (Negative) Nasal Screen MRSA (PCR) (Negative) Ethyl Alcohol mg/dL (<10.0) mg/dl Adenovirus (PCR) (NotDetected) B. pertussis DNA (PCR) (NotDetected) B.parapertussis DNA PCR (NotDetected) C. pneumoniae DNA (PCR) (NotDetected) Coronavirus OC43 (PCR) (NotDetected) Coronavirus HKU1 (PCR) (NotDetected) Coronavirus 229E (PCR) (NotDetected) SARS-CoV-2 (PCR) (NotDetected) Coronavirus NL63 (PCR) (NotDetected) Human Metapneumovir PCR (NotDetected) Influenza Type A (PCR) (NotDetected) Influenza Type B (PCR) (NotDetected) Urine Legionella Ag M. pneumoniae (PCR) (NotDetected) Parainfluenza 1 (PCR) (NotDetected) Parainfluenza 2 (PCR) (NotDetected) Parainfluenza 3 (PCR) (NotDetected) Parainfluenza 4 (PCR) (NotDetected) A. galactomannan Ag A. galactomannan Ag Idx RSV (PCR) (NotDetected) Entero/Rhino (PCR) (NotDetected) Beta-(1,3)-D-Glucan B-(1,3)-D-Glucan Intrp 06/26/22 06/25/22 06/25/22 Range/Units 00:07 22:23 22:14 WBC (4.8-10.8) K/ul RBC (4.70-6.10) M/uL Hgb (14.0-18.0) g/dl POC Hgb (14.0-18.0) g/dl Hct (42.0-52.0) % POC Hct (42-52) % MCV (80.0-100.0) fL MCH (25.0-34.0) pg MCHC (32.0-36.0) g/dL RDW Std Deviation (36.4-46.3) fL RDW Coeff of Argenis (11.5-14.5) % Plt Count (130-400) K/uL MPV (9.4-12.4) fL Neutrophils % (Manual) % Lymphocytes % (Manual) % Monocytes % (Manual) % Neutrophils # (Manual) (1.40-6.50) K/uL Total Absolute Neuts (1.4-6.5) K/uL Lymphocytes # (Manual) (1.2-3.4) K/uL Total Abs Lymphocytes (1.2-3.4) K/uL Monocytes # (Manual) (0.11-0.59) K/uL PT (9.0-12.0) Seconds INR (0.9-1.1) APTT (21.0-31.0) Seconds PTT Ratio Sample Site POC pH (7.35-7.45) POC pCO2 (35-46) mmHg POC pO2 (80-95) mmHg POC HCO3 (19-24) isaiah/L POC Total CO2 (24-31) mmol/L POC Base Excess (-9-1.8) isaiah/L ABG pH 7.28 L (7.35-7.45) ABG pH (Temp Correct) (7.35-7.45) ABG pCO2 86 H (35-46) mmHg ABG pCO2 (Temp Corrct (35-46) mmHg ABG pO2 114 H (80-95) mmHg POC ABG pO2 at Pt Temp ABG HCO3 40 H (19-24) mmol/L POC ABG O2 Sat (90-95) % ABG O2 Saturation 98.7 H (90-95) % ABG Base Excess 10.0 H (-9-1.8) mEq/L Sim Test POS (Pos) Oxygen Given UNK O2 Delivery Device POC O2 Rate POC FiO2 % Tidal Volume PEEP POC Sodium (135-144) mmol/L Sodium (136-145) mmol/L POC Potassium (3.3-5.0) mmol/L Potassium (3.5-5.1) mmol/L Chloride (98-107) mmol/L Carbon Dioxide (21-32) mmol/L Anion Gap (3-11) BUN (6-23) mg/dl Creatinine (0.6-1.4) mg/dl Est Cr Clr Drug Dosing ml/min Est GFR ( Amer) ml/min Est GFR (Non-Af Amer) ml/min BUN/Creatinine Ratio (10-20) Glucose (70-99(Fasting)) mg/dl POC Glucose (70-99) mg/dl Lactate (0.4-2.0) mmol/L Calcium (8.5-10.1) mg/dl Magnesium (1.7-2.4) mg/dl Total Bilirubin (0.2-1.0) mg/dl Direct Bilirubin (0-0.2) mg/dl AST (13-39) U/L ALT (7-52) U/L Alkaline Phosphatase (34-104) U/L Troponin I High Sens (0-20) pg/ml B-Natriuretic Peptide (0-100) pg/ml Total Protein (6.0-8.3) gm/dl Albumin (3.4-5.0) gm/dl Lipase (11-82) U/L Procalcitonin (0-0.5) ng/ml Urine Color Urine Appearance (Clear) Urine pH (4.5-7.5) Ur Specific [place] (1.000-1.030) Urine Protein (Negative) Urine Glucose (UA) (Negative) Urine Ketones (Negative) Urine Blood (Negative) Urine Nitrite (Negative) Urine Bilirubin (Negative) Urine Urobilinogen (Negative) Ur Leukocyte Esterase (Negative) Urine WBC (Auto) (0-5) /hpf Urine RBC (Auto) (0-4) /hpf U Hyaline Cast (Auto) (0-5) /lpf U Epithel Cells (Auto) (0-5) /lpf Urine Bacteria (Auto) (Negative) Nasal Screen MRSA (PCR) (Negative) Ethyl Alcohol mg/dL < 10.0 (<10.0) mg/dl Adenovirus (PCR) (NotDetected) B. pertussis DNA (PCR) (NotDetected) B.parapertussis DNA PCR (NotDetected) C. pneumoniae DNA (PCR) (NotDetected) Coronavirus OC43 (PCR) (NotDetected) Coronavirus HKU1 (PCR) (NotDetected) Coronavirus 229E (PCR) (NotDetected) SARS-CoV-2 (PCR) (NotDetected) Coronavirus NL63 (PCR) (NotDetected) Human Metapneumovir PCR (NotDetected) Influenza Type A (PCR) (NotDetected) Influenza Type B (PCR) (NotDetected) Urine Legionella Ag Pending M. pneumoniae (PCR) (NotDetected) Parainfluenza 1 (PCR) (NotDetected) Parainfluenza 2 (PCR) (NotDetected) Parainfluenza 3 (PCR) (NotDetected) Parainfluenza 4 (PCR) (NotDetected) A. galactomannan Ag A. galactomannan Ag Idx RSV (PCR) (NotDetected) Entero/Rhino (PCR) (NotDetected) Beta-(1,3)-D-Glucan B-(1,3)-D-Glucan Intrp 06/25/22 06/25/22 06/25/22 Range/Units 21:35 21:12 21:10 WBC (4.8-10.8) K/ul RBC (4.70-6.10) M/uL Hgb (14.0-18.0) g/dl POC Hgb (14.0-18.0) g/dl Hct (42.0-52.0) % POC Hct (42-52) % MCV (80.0-100.0) fL MCH (25.0-34.0) pg MCHC (32.0-36.0) g/dL RDW Std Deviation (36.4-46.3) fL RDW Coeff of Argenis (11.5-14.5) % Plt Count (130-400) K/uL MPV (9.4-12.4) fL Neutrophils % (Manual) % Lymphocytes % (Manual) % Monocytes % (Manual) % Neutrophils # (Manual) (1.40-6.50) K/uL Total Absolute Neuts (1.4-6.5) K/uL Lymphocytes # (Manual) (1.2-3.4) K/uL Total Abs Lymphocytes (1.2-3.4) K/uL Monocytes # (Manual) (0.11-0.59) K/uL PT (9.0-12.0) Seconds INR (0.9-1.1) APTT (21.0-31.0) Seconds PTT Ratio Sample Site POC pH (7.35-7.45) POC pCO2 (35-46) mmHg POC pO2 (80-95) mmHg POC HCO3 (19-24) isaiah/L POC Total CO2 (24-31) mmol/L POC Base Excess (-9-1.8) isaiah/L ABG pH (7.35-7.45) ABG pH (Temp Correct) (7.35-7.45) ABG pCO2 (35-46) mmHg ABG pCO2 (Temp Corrct (35-46) mmHg ABG pO2 (80-95) mmHg POC ABG pO2 at Pt Temp ABG HCO3 (19-24) mmol/L POC ABG O2 Sat (90-95) % ABG O2 Saturation (90-95) % ABG Base Excess (-9-1.8) mEq/L Sim Test (Pos) Oxygen Given O2 Delivery Device POC O2 Rate POC FiO2 % Tidal Volume PEEP POC Sodium (135-144) mmol/L Sodium (136-145) mmol/L POC Potassium (3.3-5.0) mmol/L Potassium (3.5-5.1) mmol/L Chloride (98-107) mmol/L Carbon Dioxide (21-32) mmol/L Anion Gap (3-11) BUN (6-23) mg/dl Creatinine (0.6-1.4) mg/dl Est Cr Clr Drug Dosing ml/min Est GFR ( Amer) ml/min Est GFR (Non-Af Amer) ml/min BUN/Creatinine Ratio (10-20) Glucose (70-99(Fasting)) mg/dl POC Glucose (70-99) mg/dl Lactate 0.6 (0.4-2.0) mmol/L Calcium (8.5-10.1) mg/dl Magnesium (1.7-2.4) mg/dl Total Bilirubin (0.2-1.0) mg/dl Direct Bilirubin (0-0.2) mg/dl AST (13-39) U/L ALT (7-52) U/L Alkaline Phosphatase (34-104) U/L Troponin I High Sens (0-20) pg/ml B-Natriuretic Peptide (0-100) pg/ml Total Protein (6.0-8.3) gm/dl Albumin (3.4-5.0) gm/dl Lipase (11-82) U/L Procalcitonin (0-0.5) ng/ml Urine Color [place] Urine Appearance Clear (Clear) Urine pH 5.0 (4.5-7.5) Ur Specific [place] 1.034 H (1.000-1.030) Urine Protein 4+ H (Negative) Urine Glucose (UA) Negative (Negative) Urine Ketones 1+ H (Negative) Urine Blood 1+ H (Negative) Urine Nitrite Negative (Negative) Urine Bilirubin 1+ H (Negative) Urine Urobilinogen Negative (Negative) Ur Leukocyte Esterase Negative (Negative) Urine WBC (Auto) 1-5 (0-5) /hpf Urine RBC (Auto) 0-4 (0-4) /hpf U Hyaline Cast (Auto) 1-5 (0-5) /lpf U Epithel Cells (Auto) >30 H (0-5) /lpf Urine Bacteria (Auto) Negative (Negative) Nasal Screen MRSA (PCR) (Negative) Ethyl Alcohol mg/dL (<10.0) mg/dl Adenovirus (PCR) (NotDetected) B. pertussis DNA (PCR) (NotDetected) B.parapertussis DNA PCR (NotDetected) C. pneumoniae DNA (PCR) (NotDetected) Coronavirus OC43 (PCR) (NotDetected) Coronavirus HKU1 (PCR) (NotDetected) Coronavirus 229E (PCR) (NotDetected) SARS-CoV-2 (PCR) (NotDetected) Coronavirus NL63 (PCR) (NotDetected) Human Metapneumovir PCR (NotDetected) Influenza Type A (PCR) (NotDetected) Influenza Type B (PCR) (NotDetected) Urine Legionella Ag M. pneumoniae (PCR) (NotDetected) Parainfluenza 1 (PCR) (NotDetected) Parainfluenza 2 (PCR) (NotDetected) Parainfluenza 3 (PCR) (NotDetected) Parainfluenza 4 (PCR) (NotDetected) A. galactomannan Ag Pending A. galactomannan Ag Idx Pending RSV (PCR) (NotDetected) Entero/Rhino (PCR) (NotDetected) Beta-(1,3)-D-Glucan Pending B-(1,3)-D-Glucan Intrp Pending 06/25/22 06/25/22 06/25/22 Range/Units 21:10 21:10 21:08 WBC (4.8-10.8) K/ul RBC (4.70-6.10) M/uL Hgb (14.0-18.0) g/dl POC Hgb 15.6 (14.0-18.0) g/dl Hct (42.0-52.0) % POC Hct 46 (42-52) % MCV (80.0-100.0) fL MCH (25.0-34.0) pg MCHC (32.0-36.0) g/dL RDW Std Deviation (36.4-46.3) fL RDW Coeff of Argenis (11.5-14.5) % Plt Count (130-400) K/uL MPV (9.4-12.4) fL Neutrophils % (Manual) % Lymphocytes % (Manual) % Monocytes % (Manual) % Neutrophils # (Manual) (1.40-6.50) K/uL Total Absolute Neuts (1.4-6.5) K/uL Lymphocytes # (Manual) (1.2-3.4) K/uL Total Abs Lymphocytes (1.2-3.4) K/uL Monocytes # (Manual) (0.11-0.59) K/uL PT (9.0-12.0) Seconds INR (0.9-1.1) APTT (21.0-31.0) Seconds PTT Ratio Sample Site POC pH 7.16 L* (7.35-7.45) POC pCO2 107 H (35-46) mmHg POC pO2 65 L (80-95) mmHg POC HCO3 38 H (19-24) isaiah/L POC Total CO2 > 40 H* (24-31) mmol/L POC Base Excess 10.0 H (-9-1.8) isaiah/L ABG pH (7.35-7.45) ABG pH (Temp Correct) (7.35-7.45) ABG pCO2 (35-46) mmHg ABG pCO2 (Temp Corrct (35-46) mmHg ABG pO2 (80-95) mmHg POC ABG pO2 at Pt Temp ABG HCO3 (19-24) mmol/L POC ABG O2 Sat 83.0 L (90-95) % ABG O2 Saturation (90-95) % ABG Base Excess (-9-1.8) mEq/L Sim Test (Pos) Oxygen Given O2 Delivery Device POC O2 Rate POC FiO2 % Tidal Volume PEEP POC Sodium 139 (135-144) mmol/L Sodium 139 (136-145) mmol/L POC Potassium 4.8 (3.3-5.0) mmol/L Potassium 4.8 (3.5-5.1) mmol/L Chloride 95 L (98-107) mmol/L Carbon Dioxide 37 H (21-32) mmol/L Anion Gap 7 (3-11) BUN 23 (6-23) mg/dl Creatinine 1.13 (0.6-1.4) mg/dl Est Cr Clr Drug Dosing 91.4 ml/min Est GFR ( Amer) 82.6 ml/min Est GFR (Non-Af Amer) 71.3 ml/min BUN/Creatinine Ratio 20.4 H (10-20) Glucose 156 H (70-99(Fasting)) mg/dl POC Glucose (70-99) mg/dl Lactate (0.4-2.0) mmol/L Calcium 9.4 (8.5-10.1) mg/dl Magnesium 2.1 (1.7-2.4) mg/dl Total Bilirubin 1.1 H (0.2-1.0) mg/dl Direct Bilirubin 0.4 H (0-0.2) mg/dl AST 10 L (13-39) U/L ALT 16 (7-52) U/L Alkaline Phosphatase 95 (34-104) U/L Troponin I High Sens 25.8 H (0-20) pg/ml B-Natriuretic Peptide 63 (0-100) pg/ml Total Protein 7.5 (6.0-8.3) gm/dl Albumin 4.3 (3.4-5.0) gm/dl Lipase 3 L (11-82) U/L Procalcitonin (0-0.5) ng/ml Urine Color Urine Appearance (Clear) Urine pH (4.5-7.5) Ur Specific [place] (1.000-1.030) Urine Protein (Negative) Urine Glucose (UA) (Negative) Urine Ketones (Negative) Urine Blood (Negative) Urine Nitrite (Negative) Urine Bilirubin (Negative) Urine Urobilinogen (Negative) Ur Leukocyte Esterase (Negative) Urine WBC (Auto) (0-5) /hpf Urine RBC (Auto) (0-4) /hpf U Hyaline Cast (Auto) (0-5) /lpf U Epithel Cells (Auto) (0-5) /lpf Urine Bacteria (Auto) (Negative) Nasal Screen MRSA (PCR) (Negative) Ethyl Alcohol mg/dL (<10.0) mg/dl Adenovirus (PCR) (NotDetected) B. pertussis DNA (PCR) (NotDetected) B.parapertussis DNA PCR (NotDetected) C. pneumoniae DNA (PCR) (NotDetected) Coronavirus OC43 (PCR) (NotDetected) Coronavirus HKU1 (PCR) (NotDetected) Coronavirus 229E (PCR) (NotDetected) SARS-CoV-2 (PCR) (NotDetected) Coronavirus NL63 (PCR) (NotDetected) Human Metapneumovir PCR (NotDetected) Influenza Type A (PCR) (NotDetected) Influenza Type B (PCR) (NotDetected) Urine Legionella Ag M. pneumoniae (PCR) (NotDetected) Parainfluenza 1 (PCR) (NotDetected) Parainfluenza 2 (PCR) (NotDetected) Parainfluenza 3 (PCR) (NotDetected) Parainfluenza 4 (PCR) (NotDetected) A. galactomannan Ag A. galactomannan Ag Idx RSV (PCR) (NotDetected) Entero/Rhino (PCR) (NotDetected) Beta-(1,3)-D-Glucan B-(1,3)-D-Glucan Intrp 06/25/22 06/25/22 06/25/22 Range/Units 20:55 20:45 20:45 WBC (4.8-10.8) K/ul RBC (4.70-6.10) M/uL Hgb (14.0-18.0) g/dl POC Hgb (14.0-18.0) g/dl Hct (42.0-52.0) % POC Hct (42-52) % MCV (80.0-100.0) fL MCH (25.0-34.0) pg MCHC (32.0-36.0) g/dL RDW Std Deviation (36.4-46.3) fL RDW Coeff of Argenis (11.5-14.5) % Plt Count (130-400) K/uL MPV (9.4-12.4) fL Neutrophils % (Manual) % Lymphocytes % (Manual) % Monocytes % (Manual) % Neutrophils # (Manual) (1.40-6.50) K/uL Total Absolute Neuts (1.4-6.5) K/uL Lymphocytes # (Manual) (1.2-3.4) K/uL Total Abs Lymphocytes (1.2-3.4) K/uL Monocytes # (Manual) (0.11-0.59) K/uL PT 11.1 (9.0-12.0) Seconds INR 1.0 (0.9-1.1) APTT 34.5 H (21.0-31.0) Seconds PTT Ratio 1.3 Sample Site POC pH (7.35-7.45) POC pCO2 (35-46) mmHg POC pO2 (80-95) mmHg POC HCO3 (19-24) isaiah/L POC Total CO2 (24-31) mmol/L POC Base Excess (-9-1.8) isaiah/L ABG pH (7.35-7.45) ABG pH (Temp Correct) (7.35-7.45) ABG pCO2 (35-46) mmHg ABG pCO2 (Temp Corrct (35-46) mmHg ABG pO2 (80-95) mmHg POC ABG pO2 at Pt Temp ABG HCO3 (19-24) mmol/L POC ABG O2 Sat (90-95) % ABG O2 Saturation (90-95) % ABG Base Excess (-9-1.8) mEq/L Ism Test (Pos) Oxygen Given O2 Delivery Device POC O2 Rate POC FiO2 % Tidal Volume PEEP POC Sodium (135-144) mmol/L Sodium (136-145) mmol/L POC Potassium (3.3-5.0) mmol/L Potassium (3.5-5.1) mmol/L Chloride (98-107) mmol/L Carbon Dioxide (21-32) mmol/L Anion Gap (3-11) BUN (6-23) mg/dl Creatinine (0.6-1.4) mg/dl Est Cr Clr Drug Dosing ml/min Est GFR ( Amer) ml/min Est GFR (Non-Af Amer) ml/min BUN/Creatinine Ratio (10-20) Glucose (70-99(Fasting)) mg/dl POC Glucose (70-99) mg/dl Lactate (0.4-2.0) mmol/L Calcium (8.5-10.1) mg/dl Magnesium (1.7-2.4) mg/dl Total Bilirubin (0.2-1.0) mg/dl Direct Bilirubin (0-0.2) mg/dl AST (13-39) U/L ALT (7-52) U/L Alkaline Phosphatase (34-104) U/L Troponin I High Sens (0-20) pg/ml B-Natriuretic Peptide (0-100) pg/ml Total Protein (6.0-8.3) gm/dl Albumin (3.4-5.0) gm/dl Lipase (11-82) U/L Procalcitonin 0.17 (0-0.5) ng/ml Urine Color Urine Appearance (Clear) Urine pH (4.5-7.5) Ur Specific [place] (1.000-1.030) Urine Protein (Negative) Urine Glucose (UA) (Negative) Urine Ketones (Negative) Urine Blood (Negative) Urine Nitrite (Negative) Urine Bilirubin (Negative) Urine Urobilinogen (Negative) Ur Leukocyte Esterase (Negative) Urine WBC (Auto) (0-5) /hpf Urine RBC (Auto) (0-4) /hpf U Hyaline Cast (Auto) (0-5) /lpf U Epithel Cells (Auto) (0-5) /lpf Urine Bacteria (Auto) (Negative) Nasal Screen MRSA (PCR) (Negative) Ethyl Alcohol mg/dL (<10.0) mg/dl Adenovirus (PCR) Not Detected (NotDetected) B. pertussis DNA (PCR) Not Detected (NotDetected) B.parapertussis DNA PCR Not Detected (NotDetected) C. pneumoniae DNA (PCR) Not Detected (NotDetected) Coronavirus OC43 (PCR) Not Detected (NotDetected) Coronavirus HKU1 (PCR) Not Detected (NotDetected) Coronavirus 229E (PCR) Not Detected (NotDetected) SARS-CoV-2 (PCR) Not Detected (NotDetected) Coronavirus NL63 (PCR) Not Detected (NotDetected) Human Metapneumovir PCR Not Detected (NotDetected) Influenza Type A (PCR) Not Detected (NotDetected) Influenza Type B (PCR) Not Detected (NotDetected) Urine Legionella Ag M. pneumoniae (PCR) Not Detected (NotDetected) Parainfluenza 1 (PCR) Not Detected (NotDetected) Parainfluenza 2 (PCR) Not Detected (NotDetected) Parainfluenza 3 (PCR) Not Detected (NotDetected) Parainfluenza 4 (PCR) Not Detected (NotDetected) A. galactomannan Ag A. galactomannan Ag Idx RSV (PCR) Not Detected (NotDetected) Entero/Rhino (PCR) Not Detected (NotDetected) Beta-(1,3)-D-Glucan B-(1,3)-D-Glucan Intrp 06/25/22 06/25/22 Range/Units 20:45 20:15 WBC 12.63 H (4.8-10.8) K/ul RBC 4.99 (4.70-6.10) M/uL Hgb 15.2 (14.0-18.0) g/dl POC Hgb 16.0 (14.0-18.0) g/dl Hct 48.9 (42.0-52.0) % POC Hct 47 (42-52) % MCV 98.0 (80.0-100.0) fL MCH 30.5 (25.0-34.0) pg MCHC 31.1 L (32.0-36.0) g/dL RDW Std Deviation 53.8 H (36.4-46.3) fL RDW Coeff of Argenis 14.7 H (11.5-14.5) % Plt Count 117 L (130-400) K/uL MPV 11.3 (9.4-12.4) fL Neutrophils % (Manual) 11 % Lymphocytes % (Manual) 85 % Monocytes % (Manual) 4 % Neutrophils # (Manual) 1.39 L (1.40-6.50) K/uL Total Absolute Neuts 1.39 L (1.4-6.5) K/uL Lymphocytes # (Manual) 10.74 H (1.2-3.4) K/uL Total Abs Lymphocytes 10.74 H (1.2-3.4) K/uL Monocytes # (Manual) 0.51 (0.11-0.59) K/uL PT (9.0-12.0) Seconds INR (0.9-1.1) APTT (21.0-31.0) Seconds PTT Ratio Sample Site POC pH 7.13 L* (7.35-7.45) POC pCO2 > 115 H (35-46) mmHg POC pO2 239 H (80-95) mmHg POC HCO3 41 H (19-24) isaiah/L POC Total CO2 > 40 H* (24-31) mmol/L POC Base Excess 12.0 H (-9-1.8) isaiah/L ABG pH (7.35-7.45) ABG pH (Temp Correct) (7.35-7.45) ABG pCO2 (35-46) mmHg ABG pCO2 (Temp Corrct (35-46) mmHg ABG pO2 (80-95) mmHg POC ABG pO2 at Pt Temp ABG HCO3 (19-24) mmol/L POC ABG O2 Sat 100.0 H (90-95) % ABG O2 Saturation (90-95) % ABG Base Excess (-9-1.8) mEq/L Sim Test (Pos) Oxygen Given O2 Delivery Device POC O2 Rate POC FiO2 % Tidal Volume PEEP POC Sodium 138 (135-144) mmol/L Sodium (136-145) mmol/L POC Potassium 4.8 (3.3-5.0) mmol/L Potassium (3.5-5.1) mmol/L Chloride (98-107) mmol/L Carbon Dioxide (21-32) mmol/L Anion Gap (3-11) BUN (6-23) mg/dl Creatinine (0.6-1.4) mg/dl Est Cr Clr Drug Dosing ml/min Est GFR ( Amer) ml/min Est GFR (Non-Af Amer) ml/min BUN/Creatinine Ratio (10-20) Glucose (70-99(Fasting)) mg/dl POC Glucose (70-99) mg/dl Lactate (0.4-2.0) mmol/L Calcium (8.5-10.1) mg/dl Magnesium (1.7-2.4) mg/dl Total Bilirubin (0.2-1.0) mg/dl Direct Bilirubin (0-0.2) mg/dl AST (13-39) U/L ALT (7-52) U/L Alkaline Phosphatase (34-104) U/L Troponin I High Sens (0-20) pg/ml B-Natriuretic Peptide (0-100) pg/ml Total Protein (6.0-8.3) gm/dl Albumin (3.4-5.0) gm/dl Lipase (11-82) U/L Procalcitonin (0-0.5) ng/ml Urine Color Urine Appearance (Clear) Urine pH (4.5-7.5) Ur Specific [place] (1.000-1.030) Urine Protein (Negative) Urine Glucose (UA) (Negative) Urine Ketones (Negative) Urine Blood (Negative) Urine Nitrite (Negative) Urine Bilirubin (Negative) Urine Urobilinogen (Negative) Ur Leukocyte Esterase (Negative) Urine WBC (Auto) (0-5) /hpf Urine RBC (Auto) (0-4) /hpf U Hyaline Cast (Auto) (0-5) /lpf U Epithel Cells (Auto) (0-5) /lpf Urine Bacteria (Auto) (Negative) Nasal Screen MRSA (PCR) (Negative) Ethyl Alcohol mg/dL (<10.0) mg/dl Adenovirus (PCR) (NotDetected) B. pertussis DNA (PCR) (NotDetected) B.parapertussis DNA PCR (NotDetected) C. pneumoniae DNA (PCR) (NotDetected) Coronavirus OC43 (PCR) (NotDetected) Coronavirus HKU1 (PCR) (NotDetected) Coronavirus 229E (PCR) (NotDetected) SARS-CoV-2 (PCR) (NotDetected) Coronavirus NL63 (PCR) (NotDetected) Human Metapneumovir PCR (NotDetected) Influenza Type A (PCR) (NotDetected) Influenza Type B (PCR) (NotDetected) Urine Legionella Ag M. pneumoniae (PCR) (NotDetected) Parainfluenza 1 (PCR) (NotDetected) Parainfluenza 2 (PCR) (NotDetected) Parainfluenza 3 (PCR) (NotDetected) Parainfluenza 4 (PCR) (NotDetected) A. galactomannan Ag A. galactomannan Ag Idx RSV (PCR) (NotDetected) Entero/Rhino (PCR) (NotDetected) Beta-(1,3)-D-Glucan B-(1,3)-D-Glucan Intrp Resident Activity Tracking Resident Involvement: Resident Care Provided Care Provided: Adult Hospital Medicine
--- NOTE | 2022-06-26 08:05 | XRay Report ---
XR chest 1V portable HISTORY: 57 years-old Male while intubated- evaluate ETT/OGT and lines acute shortness of breath COMPARISON: Chest radiograph and CTA chest 06/25/2022 TECHNIQUE: AP view of the chest FINDINGS: Endotracheal tube overlies the midline, 4.8 cm superior to the melani. Enteric tube distal tip is not well visualized. Cardiomediastinal and hilar silhouettes are unchanged. Extensive reticular nodular opacities with ill-defined left lung predominant airspace densities. Nodular opacity of the left uppe r lobe. IMPRESSION: 1. Satisfactory positioning of the endotracheal tube distal tip of enteric tube is not well visualize d. 2. Reticular nodular opacities with left lung predominant airspace densities are better characterized on yesterday's CTA of the chest. 3. No pneumothorax. ACT 112: Negative or not required by law. The above report was generated using voice recognition software. It may contain grammatical, syntax o r spelling errors. Electronically signed by: Geovanny Mercado M.D. 06/26/2022 8:03 AM
--- NOTE | 2022-06-26 10:39 | Pharmacy Report ---
Pharmacy PK ABX Note - Date of Service June 26, 2022 - Assessment and Plan Assessment 57 year old M receiving vancomycin,ertapenem, and doxycycline for treatment of possible pulmonary source. Pertinent microbiologic data includes: Negative MRSA Nasal Swab, per provider hx of MRSA bacteremia. Thus, therapy will continue pending bcx results. Day # 1 of antimicrobial therapy. Plan Vancomycin * Loading dose: 2750 mg IV x 1 (already administered) * Maintenance dose: 1000 mg IV every 12 hours * Regimen is predicted to achieve target AUC/JUANA of 400-600 mg/L.hr * Trough level ordered for: 06/27/22 @ 1130 Pharmacy will continue to follow and will adjust dose/frequency as necessary. Thank you. Pharmacy has transitioned to AUC monitoring for vancomycin. AUC/JUANA is the preferred PK/PD target and is associated with decreased risk of nephrotoxicity c ompared to traditional trough targets.
--- NOTE | 2022-06-26 10:42 | Billing Data ---
Date of Service June 26, 2022 Coding Level of Care Code Critical Care 1st - mins
--- NOTE | 2022-06-26 10:47 | Procedure Note ---
Procedure Note Date of Service June 26, 2022 Note Procedure date: Noted above Procedure: fiberoptic bronchoscopy Pre-procedure indication: Pulmonary infiltrate, acute hypoxic respiratory failure, history of lung abscess Post-procedure Diagnosis: same as above Prior to Procedure: Informed Consent: The risks, benefits, indications, potential complications, and alternatives were explained to the patient's daughter and informed consent obtained. Attending Staff: Shahid Easley DO Resident/APC: Dr. Murphy Skin Prep: Not applicable Anesthesia: Continuous infusion The identity of the patient was confirmed and a bedside time out was performed. Description of Procedure: Fiberoptic bronchoscopy was performed via endotracheal tube. Bronchioalveolar brushing of the left lower lobe was performed. Findings included: Copious white creamy secretions were suctioned from the left upper lobe and left lower lobe, predominantly out of the left lower lobe. Bronchial brushing of the left lower lobe was obtained. For mL of Mucomyst was instilled in the left lower lobe and for mL of Mucomyst was instilled in the left upper lobe. Right mainstem and upper middle and lower lobes were visualized, no significant secretion burden was noted in the right lung. Complications: None Specimens: Bronchial brushing sent for culture and Gram stain, fungal elements, AFB stain and culture, cell count differential. Estimated blood loss: Zero Coding CPT Codes Pulmonary/Thoracic - Pulmonary and Thoracic: 11950 Dx bronchoscopy/brush ([id number]) [facility] [place] Procedure Codes (Charges) Pulmonary/Thoracic Procedure 1: Pulmonary and Thoracic: 96477 Dx bronchoscopy/brush
[2022-06-26] MEDS: VANCOMYCIN HCL 1,000 MG in SODIUM CHLORIDE 0.9% 250 ML IV SCH ×2 (11:35→23:12)
[2022-06-26] MEDS ORDERED: VANCOMYCIN HCL 1,250 MG in SODIUM CHLORIDE 0.9% 250 ML IV SCH (12:00)
--- NOTE | 2022-06-26 13:13 | Electrocardiogram Report ---
Test Reason : Blood Pressure : / mmHG Vent. Rate : 128 BPM Atrial Rate : 128 BPM P-R Int : 158 ms QRS Dur : 090 ms QT Int : 296 ms P-R-T Axes : 070 119 064 degrees QTc Int : 432 ms Sinus tachycardia with Premature atrial complexes Biatrial enlargement Septal infarct , age undetermined Abnormal ECG When compared with ECG of 29-OCT-2020 08:59, Septal infarct is now Present Nonspecific T wave abnormality no longer evident in Inferior leads Confirmed by Hipolito Gonzalez ([id number]) on 06/26/2022 1:12:44 PM Referred By: REFERRED SELF Confirmed By:Hipolito Gonzalez
--- NOTE | 2022-06-26 13:15 | Electrocardiogram Report ---
Test Reason : Blood Pressure : / mmHG Vent. Rate : 108 BPM Atrial Rate : 108 BPM P-R Int : 158 ms QRS Dur : 090 ms QT Int : 338 ms P-R-T Axes : 086 112 088 degrees QTc Int : 452 ms Sinus tachycardia Biatrial enlargement Septal infarct (cited on or before 25-JUN-2022) Abnormal ECG When compared with ECG of 25-JUN-2022 19:55, (unconfirmed) Aberrant conduction is no longer Present Confirmed by Hipolito Gonzalez ([id number]) on 06/26/2022 1:15:03 PM Referred By: REFERRED SELF Confirmed By:Hipolito Gonzalez
--- NOTE | 2022-06-26 13:26 | Hospitalist Progress Note ---
Date of Service June 26, 2022 Assessment & Plan (1) Acute hypercapnic respiratory failure: Plan: Was brought in with severe respiratory distress and required intubation Noted to have mildly elevated white count of 12.63 without any elevation of procalcitonin no elevation of the temperature Chest CT showed multilobar pneumonia without any pulmonary embolism Has been on mechanical ventilator and is sedated Appreciate [employer] input and recommendation (2) COPD (chronic obstructive pulmonary disease): Plan: COPD exacerbation with pneumonia as above (3) Sepsis: Plan: Likely secondary to multilobar pneumonia Blood and sputum cultures are pending Has been on intravenous Invanz, doxycycline and vancomycin for now given the history of MRSA positive in the past-MRSA is negative this time De-escalate antibiotic as per [employer] (4) CHF (congestive heart failure): Plan: History of congestive heart failure with preserved EF BNP has been negative and no signs of fluid overload (5) Multifocal pneumonia: Plan: As above (6) HTN (hypertension): Plan: Blood pressure is maintained right now but the patient required very small dose of pressor resents initially to maintain blood pressure (7) CLL (chronic lymphocytic leukemia): Plan: History of CLL White count is not much elevated 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 (8) Obesity: Plan DVT prophylaxis SCDs and subcu Lovenox CODE STATUS Full Admission and Anticipated Discharge Date Admission Date: June 25, 2022 Subjective 06/26/2022 The patient was seen and examined in ICU Remains intubated due to respiratory failure secondary to multilobar pneumonia Has been requiring pressor resents to maintain blood pressure Review of Systems Review of Systems: Unobtainable due to endotracheal tube Physical Exam Physical Exam: Lying in bed comfortably and is sedated on mechanical ventilator Constitutional: well developed, well nourished and + obese; not ill appearing Eyes: Closed ENMT: external ear and nose normal, oropharynx normal Neck: trachea midline, no thyromegaly Respiratory: no respiratory distress Auscultation: + diminished lung sounds and + crackles (Transmitted bronchial sound) Cardiovascular: Rate/Rhythm: regular rate and regular rhythm; not tachycardic Heart Sounds: normal S1 and normal S2; no murmur Extremities: + edema (Trace edema bilaterally) Gastrointestinal (Abdomen): Inspection/Auscultation: normal bowel sounds; abdomen not distended Percussion/Palpation: abdomen soft; abdomen nontender Musculoskeletal: No joint is acutely inflamed Neurologic: Remains sedated on mechanical ventilator Results & Data Results & Data ([facility]) Vital Signs (Past 12 Hours) Vital Signs Temp Pulse Resp BP Pulse Ox O2 Del Method O2 Flow Rate 06/26/22 11:00 71 22 92 06/26/22 12:00 36.7 C 80 22 93 06/26/22 12:00 132/63 06/26/22 11:50 36.8 C 83 22 98 06/26/22 11:40 36.8 C 66 23 98 06/26/22 11:30 36.8 C 66 22 98 06/26/22 11:20 36.9 C 69 22 98 06/26/22 11:10 36.9 C 69 22 92 06/26/22 11:00 36.9 C 70 22 92 06/26/22 11:00 98/58 L 06/26/22 12:00 06/26/22 10:00 36.7 C 72 22 91 06/26/22 10:00 98/59 L 06/26/22 09:00 36.7 C 83 22 92 06/26/22 09:00 128/67 06/26/22 08:00 36.8 C 84 22 90 06/26/22 08:00 129/72 06/26/22 07:30 120/69 06/26/22 07:30 36.9 C 78 22 90 06/26/22 07:00 37.0 C 74 22 90 06/26/22 07:00 125/72 06/26/22 08:00 Mechanical Vent 40 06/26/22 08:00 06/26/22 07:20 74 22 93 06/26/22 06:00 37.2 C 78 22 06/26/22 05:30 37.3 C 79 22 88 L 06/26/22 05:30 124/70 06/26/22 05:00 37.3 C 77 22 87 L 06/26/22 05:00 119/67 06/26/22 04:30 37.5 C 86 26 H 06/26/22 04:00 37.5 C 86 26 H 06/26/22 03:30 37.5 C 88 26 H 06/26/22 03:30 123/73 06/26/22 03:00 37.5 C 79 26 H 86 L 06/26/22 03:00 128/79 02/04/23 02:30 37.5 C 82 26 H 06/26/22 02:30 99/65 L 06/26/22 02:16 37.4 C 83 26 H 84 L 06/26/22 02:16 137/82 06/26/22 02:00 37.6 C H 93 H 13 91 06/26/22 01:30 37.8 C H 95 H 24 06/26/22 04:00 06/26/22 03:43 87 26 H 94 06/26/22 02:08 88 26 H 95 FiO2 06/26/22 11:00 40 06/26/22 12:00 06/26/22 12:00 06/26/22 11:50 06/26/22 11:40 06/26/22 11:30 06/26/22 11:20 06/26/22 11:10 06/26/22 11:00 06/26/22 11:00 06/26/22 12:00 40 06/26/22 10:00 06/26/22 10:00 06/26/22 09:00 06/26/22 09:00 06/26/22 08:00 40 06/26/22 08:00 06/26/22 07:30 06/26/22 07:30 06/26/22 07:00 06/26/22 07:00 06/26/22 08:00 06/26/22 08:00 40 06/26/22 07:20 40 06/26/22 06:00 06/26/22 05:30 06/26/22 05:30 06/26/22 05:00 06/26/22 05:00 06/26/22 04:30 06/26/22 04:00 06/26/22 03:30 06/26/22 03:30 06/26/22 03:00 06/26/22 03:00 06/26/22 02:30 06/26/22 02:30 06/26/22 02:16 06/26/22 02:16 06/26/22 02:00 06/26/22 01:30 06/26/22 04:00 40 06/26/22 03:43 45 06/26/22 02:08 50 Laboratory Results Current Inpatient Medications Albuterol (Albut/Ipratrop 3mg/0.5mg Neb 3 Ml Vial) 3 ml NEB QIDR SAM; Protocol Stop: 07/26/22 06:59 Last Admin: 06/26/22 11:35 Dose: 3 ml Albuterol (Albut/Ipratrop 3mg/0.5mg Neb 3 Ml Vial) 3 ml NEB Q2H PRN; Protocol PRN Reason: Shortness Of Breath Or Wheezing Stop: 07/26/22 00:37 Last Admin: 06/26/22 01:01 Dose: 3 ml Enoxaparin Sodium (Enoxaparin Inj 40 Mg/0.4 Ml Syr) 40 mg SQ Q24H [facility] Stop: 07/26/22 08:59 Last Admin: 06/26/22 07:26 Dose: 40 mg Fentanyl Citrate (Fentanyl Bolus From Bag) 50 mcg IV Q60M PRN PRN Reason: Pain or Agitation Stop: 07/10/22 00:58 Sodium Chloride (Nss 1000ml) 1,000 mls @ 75 mls/hr IV .[id number] [facility] Stop: 07/26/22 00:37 Last Admin: 06/26/22 11:51 Dose: 75 mls/hr Doxycycline Hyclate 100 mg/ (Dextrose) 110 mls @ 50 mls/hr IV Q12H [facility] Stop: 07/03/22 00:37 Last Infusion: 06/26/22 01:36 Dose: Infused Ertapenem 1,000 mg/ Syringe 10 mls @ 2 mls/min IV Q24H [facility] Stop: 07/03/22 00:59 Last Admin: 06/26/22 01:36 Dose: 2 mls/min Methylprednisolone 40 mg/ (Syringe) 0.64 mls @ 1.5 mls/min IV Q8H [facility] Stop: 07/26/22 07:59 Last Admin: 06/26/22 07:26 Dose: 1.5 mls/min Fentanyl Citrate (Fentanyl Citrate) 2,500 mcg in 250 mls @ 10 mls/hr IV .Q25H [facility]; Protocol Stop: 07/10/22 00:59 Last Titration: 06/26/22 07:02 Dose: 100 mcg/hr, 10 mls/hr Norepinephrine Bitartrate (Levophed/D5w) 4 mg in 250 mls @ 20.7 mls/hr IV .Q12H5M [facility]; Protocol Stop: 07/26/22 02:14 Last Titration: 06/26/22 09:42 Dose: 0.02 mcg/kg/min, 8.3 mls/hr Propofol (Diprivan) 1,000 mg in 100 mls @ 26.4 mls/hr IV .Q3H48M [facility]; Protocol Stop: 06/29/22 05:29 Last Admin: 06/26/22 11:51 Dose: 40 mcg/kg/min, 26.4 mls/hr Vancomycin HCl 1,000 mg/ (Sodium Chloride) 270 mls @ 200 mls/hr IV Q12H [facility]; Protocol Stop: 07/03/22 11:59 Last Admin: 06/26/22 11:35 Dose: 200 mls/hr Miscellaneous (Icu Protocol For Hyperglycemia) 1 each N/A ACHS [facility] Stop: 06/28/22 07:29 Last Admin: 06/26/22 11:35 Dose: Not Given Miscellaneous Information (Vancomycin Consult Active) 1 each N/A UD PRN PRN Reason: Consult Stop: 07/25/22 22:09 Propofol (Propofol Bolus From Bag) 10 mg IV Q5M PRN PRN Reason: Sedation Stop: 06/29/22 05:22 Tamsulosin HCl (Tamsulosin Hcl 0.4 Mg Cap) 0.4 mg PO DAILY [facility] Stop: 07/26/22 08:59 Last Admin: 06/26/22 07:26 Dose: Not Given Medications Administered Current Inpatient Medications Albuterol (Albut/Ipratrop 3mg/0.5mg Neb 3 Ml Vial) 3 ml NEB QIDR [facility]; Protocol Stop: 07/26/22 06:59 Last Admin: 06/26/22 11:35 Dose: 3 ml Albuterol (Albut/Ipratrop 3mg/0.5mg Neb 3 Ml Vial) 3 ml NEB Q2H PRN; Protocol PRN Reason: Shortness Of Breath Or Wheezing Stop: 07/26/22 00:37 Last Admin: 06/26/22 01:01 Dose: 3 ml Enoxaparin Sodium (Enoxaparin Inj 40 Mg/0.4 Ml Syr) 40 mg SQ Q24H [facility] Stop: 07/26/22 08:59 Last Admin: 06/26/22 07:26 Dose: 40 mg Fentanyl Citrate (Fentanyl Bolus From Bag) 50 mcg IV Q60M PRN PRN Reason: Pain or Agitation Stop: 07/10/22 00:58 Sodium Chloride (Nss 1000ml) 1,000 mls @ 75 mls/hr IV .[id number] [facility] Stop: 07/26/22 00:37 Last Admin: 06/26/22 11:51 Dose: 75 mls/hr Doxycycline Hyclate 100 mg/ (Dextrose) 110 mls @ 50 mls/hr IV Q12H [facility] Stop: 07/03/22 00:37 Last Infusion: 06/26/22 01:36 Dose: Infused Ertapenem 1,000 mg/ Syringe 10 mls @ 2 mls/min IV Q24H [facility] Stop: 07/03/22 00:59 Last Admin: 06/26/22 01:36 Dose: 2 mls/min Methylprednisolone 40 mg/ (Syringe) 0.64 mls @ 1.5 mls/min IV Q8H [facility] Stop: 07/26/22 07:59 Last Admin: 06/26/22 07:26 Dose: 1.5 mls/min Fentanyl Citrate (Fentanyl Citrate) 2,500 mcg in 250 mls @ 10 mls/hr IV .Q25H [facility]; Protocol Stop: 07/10/22 00:59 Last Titration: 06/26/22 07:02 Dose: 100 mcg/hr, 10 mls/hr Norepinephrine Bitartrate (Levophed/D5w) 4 mg in 250 mls @ 20.7 mls/hr IV .Q12H5M [facility]; Protocol Stop: 07/26/22 02:14 Last Titration: 06/26/22 09:42 Dose: 0.02 mcg/kg/min, 8.3 mls/hr Propofol (Diprivan) 1,000 mg in 100 mls @ 26.4 mls/hr IV .Q3H48M [facility]; Protocol Stop: 06/29/22 05:29 Last Admin: 06/26/22 11:51 Dose: 40 mcg/kg/min, 26.4 mls/hr Vancomycin HCl 1,000 mg/ (Sodium Chloride) 270 mls @ 200 mls/hr IV Q12H [facility]; Protocol Stop: 07/03/22 11:59 Last Admin: 06/26/22 11:35 Dose: 200 mls/hr Miscellaneous (Icu Protocol For Hyperglycemia) 1 each N/A ACHS [facility] Stop: 06/28/22 07:29 Last Admin: 06/26/22 11:35 Dose: Not Given Miscellaneous Information (Vancomycin Consult Active) 1 each N/A UD PRN PRN Reason: Consult Stop: 07/25/22 22:09 Propofol (Propofol Bolus From Bag) 10 mg IV Q5M PRN PRN Reason: Sedation Stop: 06/29/22 05:22 Tamsulosin HCl (Tamsulosin Hcl 0.4 Mg Cap) 0.4 mg PO DAILY [facility] Stop: 07/26/22 08:59 Last Admin: 06/26/22 07:26 Dose: Not Given
[2022-06-26] MEDS ORDERED: PANTOprazole 40 MG in SYRINGE 0 ML IV ONE (18:29)
[2022-06-26] MEDS ORDERED: LABETALOL HCL IV 5 MG/ML 20ML IV STA (18:40)
[2022-06-27] MEDS: propofoL 1,000 MG/100 ML VIAL IV SCH ×6 (00:42→08:32)
[2022-06-27] MEDS: DOXYCYCLINE HYCLATE 100 MG in DEXTROSE 5% 100 ML IV SCH ×2 (00:46→14:09)
[2022-06-27] MEDS: ERTAPENEM SODIUM 1,000 MG in SYRINGE 0 ML IV SCH (00:46)
[2022-06-27] MEDS: ALBUT/IPRATROP 3MG/0.5MG NEB 3 ML VIAL NEB PRN (01:58)
[2022-06-27] MEDS: fentaNYL citrate 2,500 MCG/250 ML BAG IV SCH (04:05)
[2022-06-27 04:20] LABS: iSTAT Arterial Blood Gas HCO3 37 meg/L (19-24); iSTAT Arterial Blood Gas pCO2 59 mmHg (35-46); iSTAT Arterial Blood Gas pO2 75 mmHg (80-95); iSTAT Carbon Dioxide 39 mmol/L (24-31); iSTAT Site Art Line
[2022-06-27 04:43] LABS: BUN Creatinine Ratio 29.2 (10-20); Calcium 8.9 mg/dl (8.5-10.1); Creatinine Clr Calc Pharmacy 115.9 ml/min; Est GFR (African American) 109.2 ml/min; Est GFR (Non-African American) 94.3 ml/min; Magnesium 2.3 mg/dl (1.7-2.4); Potassium 4.3 mmol/L (3.5-5.1)
[2022-06-27] MEDS: NOREPINEPHRINE/D5W 4 MG/250 ML PLCT IV SCH (06:04)
[2022-06-27] MEDS: SODIUM CHLORIDE 0.9% 1000ML 1,000 ML IV SCH ×2 (06:09→06:11)
[2022-06-27] MEDS ORDERED: DEXTROSE 50% 50 ML SYRINGE IV PRN (06:29)
[2022-06-27] MEDS ORDERED: GLUCAGON FOR INJ 1 MG VIAL SQ PRN (06:29)
[2022-06-27] MEDS ORDERED: GLUCOSE 10 TAB/TUBE PO PRN (06:29)
[2022-06-27] MEDS ORDERED: CARBOHYDRATES FOR HYPOGLYCEMIA PO PRN (06:29)
[2022-06-27] MEDS ORDERED: GLUCOSE 40% GEL 15 GM TUBE PO PRN (06:29)
--- NOTE | 2022-06-27 07:10 | XRay Report ---
SINGLE VIEW CHEST CLINICAL HISTORY: Respiratory failure. FINDINGS: An AP, portable, upright chest radiograph is compared to study dated 06/26/2022 and correlate d with chest CT dated 06/25/2022. The examination is degraded by portable technique and apical lordotic positioning. Endotracheal and enteric tubes are unchanged in position. The cardiomediastinal silhoue tte is unremarkable. Airspace consolidation in the left mid to lower lung is unchanged. Additional mi ld bilateral airspace opacities persist. No large pleural effusion or pneumothorax is identified. The skeletal structures appear osteopenic. The bony thorax is grossly intact. IMPRESSION: 1. Stable lines and tubes. 2. Airspace consolidation in the left mid to lower lung is similar to previous, as are additional mil d bilateral airspace opacities ACT 112: Negative or not required by law. Electronically signed by: Leo Marcial M.D. 06/27/2022 7:08 AM
[2022-06-27] MEDS: ALBUT/IPRATROP 3MG/0.5MG NEB 3 ML VIAL NEB SCH ×4 (07:15→19:31)
[2022-06-27 07:35] LABS: Basophils # (auto) 0.06 K/uL (0-0.2); Basophils % (auto) 0.3 %; Hematocrit (blood only) 37.5 % (42.0-52.0); Hemoglobin 12.4 g/dl (14.0-18.0); Immature Granulocytes # (auto) 0.13 K/uL (0.01-0.20); Immature Granulocytes % (auto) 0.7 %; Lymphocytes # (auto) 11.39 K/uL (1.2-3.4); Lymphocytes % (auto) 62.8 %; Mean Corpuscular Hemoglobin 30.9 pg (25.0-34.0); Mean Corpuscular Hgb Conc 33.1 g/dL (32.0-36.0); Mean Corpuscular Volume 93.5 fL (80.0-100.0); Monocytes # (auto) 1.45 K/uL (0.11-0.59); Neutrophils % (auto) 28.2 %; Platelet Count 143 K/uL (130-400); Polychromasia 1+; RDW Coefficient of Variation 14.4 % (11.5-14.5); RDW Standard Deviation 49.6 fL (36.4-46.3); Red Blood Count 4.01 M/uL (4.70-6.10); Toxic Granulation 1+; White Blood Count 18.13 K/ul (4.8-10.8)
--- NOTE | 2022-06-27 07:47 | Critical Care Progress Note ---
Date of Service June 27, 2022 Assessment & Plan (1) Acute hypercapnic respiratory failure: (2) Sepsis: (3) CLL (chronic lymphocytic leukemia): (4) COPD (chronic obstructive pulmonary disease): (5) CHF (congestive heart failure): (6) Acute respiratory failure with hypoxia: Plan Impression: 57-year-old male with known COPD, heart failure, and CLL admitted with hypoxemic hypercarbic respiratory failure. 24-hour events: Patient mated to the ICU. He underwent bronchoscopy with washings of the left lower lobe given the persistent abnormalities on CT scan. He is on minimal vent settings this morning and is actually tolerating an SBT w ell. Recommendations: 1. Neurologic: Hold fentanyl and propofol for SBT in hopes of ventilator liberation. Appears neurologically intact. 2. Cardiovascular: History of heart failure. Hemodynamically stable and volume status appears adequate. May continue diuretics once off sedation if blood pressure allows. 3. Pulmonary: Hypoxemic and hypercarbic respiratory failure secondary to underlying COPD. PFTs not available. He does not appear overtly bronchospastic currently. Can decrease Solu-Medrol down to 40 mg every 12 with plans to transition to oral when taking p.o. Perforomist and budesonide nebulizers will be added. Restart his HFA once his respiratory status allows. Outpatient PFTs. Will require follow-up imaging for his radiographic abnormality. Given his chronic hypercarbic respiratory failure with a PCO2 in the 50s, will pursue nightly BiPAP and consider outpatient trilogy depending on patient tolerance and response. Smoking cessation recommended. 4. ID: History of MRSA pneumonia. He has persistent consolidation in the left lower lobe which may be aspiration related to his hypercarbic respiratory failure and altered mental status. He is currently day #2 vancomycin/doxycycline/ertapenem. Cultures are showing no growth to date. Fungitell pending. Continue antibiotics for now pending culture data. PCT normal - findings may represent chronic condition. 5. Renal: Normal renal function with adequate electrolytes. Acid-base status with chronic respiratory acidosis. Discontinue macdonald when extubated. 6. GI: N.p.o. in hopes of vent liberation. 7. Heme-onc: History of CLL. Holding therapy for now. Mild anemia. Continue Lovenox for DVT prophylaxis. 8. Endocrine: Glycemic control per protocol. The patient can be liberated from mechanical ventilator today. He will require PT OT. Admission and Anticipated Discharge Date Admission Date: June 25, 2022 Subjective intubated and sedated. Review of Systems Review of Systems: Unobtainable due to endotracheal tube Physical Exam Constitutional: WD/WN, vitals as above + mechanically ventilated Awake and following commands Neck: trachea midline, no thyromegaly Respiratory: no respiratory distress and no labored breathing Auscultation: + diminished lung sounds; no crackles and no wheezes Cardiovascular: RRR, no murmur, no edema Gastrointestinal (Abdomen): normal bowel sounds, soft, nontender, no hepatosplenomegaly Musculoskeletal: Extremities: extremities normal to inspection Skin: no rashes, warm and dry Neurologic: Nonfocal exam Lymphatic: no cervical lymphadenopathy Results & Data Results & Data ([facility]) Vital Signs (Past 12 Hours) Vital Signs Temp Pulse Pulse Resp BP Pulse Ox O2 Del Method 06/27/22 07:34 06/27/22 06:00 36.8 C 61 18 93 06/27/22 06:00 122/63 06/27/22 05:00 36.7 C 71 22 94 06/27/22 05:00 139/66 06/27/22 04:01 36.8 C 77 22 93 06/27/22 04:01 106/84 06/27/22 04:00 36.9 C 82 22 83 L 06/27/22 04:00 06/27/22 03:00 36.8 C 68 22 93 06/27/22 03:00 117/61 06/27/22 02:00 36.8 C 60 22 94 06/27/22 02:00 119/60 06/27/22 01:00 36.7 C 61 22 93 06/27/22 01:00 118/58 L 06/27/22 00:00 36.6 C 72 22 93 06/27/22 00:00 129/65 06/26/22 23:00 36.6 C 74 22 91 06/26/22 23:00 121/61 06/26/22 22:00 36.6 C 63 22 91 06/26/22 22:00 127/62 06/26/22 21:00 36.6 C 74 23 92 06/26/22 21:00 122/63 06/26/22 20:00 36.7 C 78 27 H 92 06/26/22 20:00 121/60 06/27/22 02:07 59 L 23 94 06/27/22 01:58 60 23 94 Mechanical Vent 06/27/22 00:00 60 06/27/22 00:00 06/26/22 22:29 64 22 92 06/26/22 22:22 61 22 91 Mechanical Vent 06/26/22 20:00 Mechanical Vent 06/26/22 20:00 O2 Flow Rate FiO2 06/27/22 07:34 40 06/27/22 06:00 06/27/22 06:00 06/27/22 05:00 06/27/22 05:00 06/27/22 04:01 06/27/22 04:01 06/27/22 04:00 06/27/22 04:00 40 06/27/22 03:00 06/27/22 03:00 06/27/22 02:00 06/27/22 02:00 06/27/22 01:00 06/27/22 01:00 06/27/22 00:00 06/27/22 00:00 06/26/22 23:00 06/26/22 23:00 06/26/22 22:00 06/26/22 22:00 06/26/22 21:00 06/26/22 21:00 06/26/22 20:00 06/26/22 20:00 06/27/22 02:07 40 06/27/22 01:58 40 06/27/22 00:00 06/27/22 00:00 40 06/26/22 22:29 40 06/26/22 22:22 40 06/26/22 20:00 45 06/26/22 20:00 45 Critical Care Results & Data Vital Signs (Past 12 Hours) Vital Signs Temp Pulse Pulse Resp BP Pulse Ox O2 Del Method 06/27/22 07:34 06/27/22 06:00 36.8 C 61 18 93 06/27/22 06:00 122/63 06/27/22 05:00 36.7 C 71 22 94 06/27/22 05:00 139/66 06/27/22 04:01 36.8 C 77 22 93 06/27/22 04:01 106/84 06/27/22 04:00 36.9 C 82 22 83 L 06/27/22 04:00 02/05/23 03:00 36.8 C 68 22 93 06/27/22 03:00 117/61 06/27/22 02:00 36.8 C 60 22 94 06/27/22 02:00 119/60 06/27/22 01:00 36.7 C 61 22 93 06/27/22 01:00 118/58 L 06/27/22 00:00 36.6 C 72 22 93 06/27/22 00:00 129/65 06/26/22 23:00 36.6 C 74 22 91 06/26/22 23:00 121/61 06/26/22 22:00 36.6 C 63 22 91 06/26/22 22:00 127/62 06/26/22 21:00 36.6 C 74 23 92 06/26/22 21:00 122/63 06/26/22 20:00 36.7 C 78 27 H 92 06/26/22 20:00 121/60 06/27/22 02:07 59 L 23 94 06/27/22 01:58 60 23 94 Mechanical Vent 06/27/22 00:00 60 06/27/22 00:00 06/26/22 22:29 64 22 92 06/26/22 22:22 61 22 91 Mechanical Vent 06/26/22 20:00 Mechanical Vent 06/26/22 20:00 O2 Flow Rate FiO2 06/27/22 07:34 40 06/27/22 06:00 06/27/22 06:00 06/27/22 05:00 06/27/22 05:00 06/27/22 04:01 06/27/22 04:01 06/27/22 04:00 06/27/22 04:00 40 06/27/22 03:00 06/27/22 03:00 06/27/22 02:00 06/27/22 02:00 06/27/22 01:00 06/27/22 01:00 06/27/22 00:00 06/27/22 00:00 06/26/22 23:00 06/26/22 23:00 06/26/22 22:00 06/26/22 22:00 06/26/22 21:00 06/26/22 21:00 06/26/22 20:00 06/26/22 20:00 06/27/22 02:07 40 06/27/22 01:58 40 06/27/22 00:00 06/27/22 00:00 40 06/26/22 22:29 40 06/26/22 22:22 40 06/26/22 20:00 45 06/26/22 20:00 45 Lab & Micro Results (Past 24 Hours) RBC 4.01 M/uL (4.70-6.10) L 06/27/22 WBC 18.13 K/ul (4.8-10.8) H 06/27/22 Hgb 12.4 g/dl (14.0-18.0) L 06/27/22 Hct 37.5 % (42.0-52.0) L 06/27/22 MCV 93.5 fL (80.0-100.0) 06/27/22 MCH 30.9 pg (25.0-34.0) 06/27/22 MCHC 33.1 g/dL (32.0-36.0) 06/27/22 RDW Standard Deviation 49.6 fL (36.4-46.3) H 06/27/22 RDW Coefficient of Variation 14.4 % (11.5-14.5) 06/27/22 Plt Count 143 K/uL (130-400) 06/27/22 MPV 11.0 fL (9.4-12.4) 06/27/22 Neutrophils (%) (Auto) 28.2 % 06/27/22 Lymphocytes (%) (Auto) 62.8 % 06/27/22 Monocytes # (Auto) 1.45 K/uL (0.11-0.59) H 06/27/22 Eosinophils # (Auto) 0.00 K/uL (0-0.50) 06/27/22 Immature Granulocyte % (Auto) 0.7 % 06/27/22 Neutrophils # (Auto) 5.10 K/uL (1.40-6.50) 06/27/22 Lymphocytes # (Auto) 11.39 K/uL (1.2-3.4) H 06/27/22 Monocytes # (Auto) 1.45 K/uL (0.11-0.59) H 06/27/22 Eosinophils # (Auto) 0.00 K/uL (0-0.50) 06/27/22 Basophils # (Auto) 0.06 K/uL (0-0.2) 06/27/22 Immature Granulocyte # (Auto) 0.13 K/uL (0.01-0.20) 3 Polychromasia 1+ 06/27/22 Toxic Granulation 1+ 06/27/22 Na 139 mmol/L (136-145) 06/27/22 K 4.3 mmol/L (3.5-5.1) 06/27/22 Cl 100 mmol/L (98-107) 06/27/22 CO2 35 mmol/L (21-32) H 06/27/22 Anion Gap 4 (3-11) 06/27/22 BUN 26 mg/dl (6-23) H 06/27/22 Creatinine 0.89 mg/dl (0.6-1.4) 06/27/22 Estimated GFR ( Amer) 109.2 ml/min 06/27/22 Estimated GFR (Non-Af Amer) 94.3 ml/min 06/27/22 BUN/Creatinine Ratio 29.2 (10-20) H 06/27/22 Glu 196 mg/dl (70-99(Fasting)) H 06/27/22 Ca 8.9 mg/dl (8.5-10.1) 06/27/22 Mg 2.3 mg/dl (1.7-2.4) 06/27/22 04:01 Calcium Level 8.9 mg/dl (8.5-10.1) 06/27/22 04:01 Sim Test NA 06/27/22 04:07 Microbiology 06/25/22 22:14 Aerobic Blood Culture - Preliminary Blood No growth in Aerobic bottle after 24 hours. Anaerobic Blood Culture - Preliminary No growth in Anaerobic bottle after 24 hours. 06/25/22 21:10 Aerobic Blood Culture - Preliminary Blood No growth in Aerobic bottle after 24 hours. Anaerobic Blood Culture - Preliminary No growth in Anaerobic bottle after 24 hours. 06/26/22 Unknown Fungal Smear - Final Bronch [place], Left Lower Lobe 06/26/22 Unknown Gram Stain - Final Bronch [place], Left Lower Lobe 06/26/22 00:07 Gram Stain - Final Sputum,Vent Suction Diagnostic Findings (Past 24 Hours) Chest X-Ray 06/26/22 05:00 XR chest 1V portable HISTORY: 57 years-old Male while intubated- evaluate ETT/OGT and lines acute shortness of breath COMPARISON: Chest radiograph and CTA chest 06/25/2022 TECHNIQUE: AP view of the chest FINDINGS: Endotracheal tube overlies the midline, 4.8 cm superior to the melani. Enteric tube distal tip is not well visualized. Cardiomediastinal and hilar silhouettes are unchanged. Extensive reticular nodular opacities with ill-defined left lung predominant airspace densities. Nodular opacity of the left upper lobe. IMPRESSION: 1. Satisfactory positioning of the endotracheal tube distal tip of enteric tube is not well visualized. 2. Reticular nodular opacities with left lung predominant airspace densities are better characterized on yesterday's CTA of the chest. 3. No pneumothorax. ACT 112: Negative or not required by law. The above report was generated using voice recognition software. It may contain grammatical, syntax or spelling errors. Electronically signed by: Geovanny Mercado M.D. 06/26/2022 8:03 AM Chest X-Ray 06/27/22 05:00 SINGLE VIEW CHEST CLINICAL HISTORY: Respiratory failure. FINDINGS: An AP, portable, upright chest radiograph is compared to study dated 06/26/2022 and correlated with chest CT dated 06/25/2022. The examination is degraded by portable technique and apical lordotic positioning. Endotracheal and enteric tubes are unchanged in position. The cardiomediastinal silhouette is unremarkable. Airspace consolidation in the left mid to lower lung is unchanged. Additional mild bilateral airspace opacities persist. No large pleural effusion or pneumothorax is identified. The skeletal structures appear osteopenic. The bony thorax is grossly intact. IMPRESSION: 1. Stable lines and tubes. 2. Airspace consolidation in the left mid to lower lung is similar to previous, as are additional mild bilateral airspace opacities ACT 112: Negative or not required by law. Electronically signed by: Leo Marcial M.D. 06/27/2022 7:08 AM I & O Totals 24 Hours 06/26/22 06/27/22 06/28/22 06:59 06:59 06:59 Intake Total 215.28 / 215.28 4210.823 / 4210.823 Output Total 200 / 200 1410 / 1410 Balance 15.28 / 15.28 2800.823 / 2800.823 Cumulative 06/25/22 19:18 thru 06/27/22 06:00 Intake Total 4426.103 Output Total 1610 Balance 2816.103 RT Ventilator Mngmt (Last Documented) Ventilator Ordered Settings Ventilator Support Mode CPAP 06/27/22 07:34 Respiratory Rate 18 06/27/22 06:00 Ventilator Tidal Volume 450 06/27/22 04:00 Setting Minute Ventilation 9.9 06/27/22 02:07 Ventilator Positive Pressure 6 06/27/22 07:34 Support Setting Positive End Expiratory 5 06/27/22 07:34 Pressure Fraction of Inspired Oxygen 40 06/27/22 07:34 Machine Comment fio2 decreased to 40% for spo2 > 06/26/22 22:29 90% Ventilator - PT Measurements Respiratory Rate 18 Exhaled Tidal Volume 448 Minute Ventilation 9.9 Peak Inspiratory Airway 34 Pressure Plateau Pressure 23 Respiratory Cycle Inspiratory: 1:2.9 Expiratory Ratio Inspiratory Phase Time 0.7 End-Tidal CO2 38 Static Lung Compliance 24.89 Dynamic Lung Compliance 15.45 Normal Static Lung Compliance 44.00 Patient Measurements Comment changes made post abg and post xray per Dr. Henriquez Coding Level of Care Code 26461 SUB INP/OBS CARE 3/50MIN Diagnoses Acute hypercapnic respiratory failure J96.02 Sepsis A41.9 CLL (chronic lymphocytic leukemia) C91.10 COPD (chronic obstructive pulmonary disease) J44.9 CHF (congestive heart failure) I50.9 Acute respiratory failure with hypoxia J96.01
[2022-06-27] MEDS: FORMOTEROL 20 MCG/2 ML VIAL NEB SCH ×2 (08:10→19:31)
[2022-06-27] MEDS: BUDESONIDE 0.5 MG/2 ML VIAL (PULMICORT) NEB SCH ×2 (08:10→19:30)
[2022-06-27] MEDS: TAMSULOSIN HCL 0.4 MG CAP PO SCH (08:16)
[2022-06-27] MEDS: INSULIN ASPART PER UNIT SC SCH ×3 (08:30→14:10)
[2022-06-27] MEDS: ENOXAPARIN INJ 40 MG/0.4 ML SYR SQ SCH (08:31)
[2022-06-27] MEDS: methylPREDNISolone 40 MG in SYRINGE 0 ML IV SCH ×2 (08:31→20:20)
[2022-06-27] MEDS ORDERED: PANTOprazole 40 MG in SYRINGE 0 ML IV SCH (11:00)
[2022-06-27] MEDS ORDERED: VANCOMYCIN LEVEL ONE (11:30)
--- NOTE | 2022-06-27 11:31 | Hospitalist Progress Note ---
Date of Service June 27, 2022 Assessment & Plan (1) Acute hypercapnic respiratory failure: Plan: Was brought in with severe respiratory distress and required intubation Noted to have mildly elevated white count of 12.63 without any elevation of procalcitonin no elevation of the temperature Chest CT showed multilobar pneumonia without any pulmonary embolism Has been on mechanical ventilator and is sedated Appreciate livestock counter input and recommendation Blood cultures are negative and sputum gram stain pinpoint growth and acid first bacteria and fungal culture pending S/p extubation on 06/27/2022-he has been maintaining normal saturation with oxygen mask around 6 L/min Remains reasonably stable (2) COPD (chronic obstructive pulmonary disease): Plan: COPD exacerbation with pneumonia as above (3) Sepsis: Plan: Likely secondary to multilobar pneumonia Blood and sputum cultures are pending Has been on intravenous Invanz, doxycycline and vancomycin for now given the history of MRSA positive in the past-MRSA is negative this time De-escalate antibiotic as per livestock counter Still on intravenous Doxy, Invanz and vancomycin (4) CHF (congestive heart failure): Plan: History of congestive heart failure with preserved EF BNP has been negative and no signs of fluid overload Chest x-ray is not showing any pulmonary edema but does have infiltration as before (5) Multifocal pneumonia: Plan: As above Has been on triple antibiotics including Vanco, ertapenem and Doxy (6) HTN (hypertension): Plan: Blood pressure is maintained right now but the patient required very small dose of pressor resents initially to maintain blood pressure (7) CLL (chronic lymphocytic leukemia): Plan: History of CLL White count is not much elevated Follows [facility] psychotherapist counselor Dr. Ramirez White count remains mildly elevated at 18.13 (8) Obesity: Plan DVT prophylaxis SCDs and subcu Lovenox CODE STATUS Full Admission and Anticipated Discharge Date Admission Date: June 25, 2022 Subjective 06/26/2022 The patient was seen and examined in ICU Remains intubated due to respiratory failure secondary to multilobar pneumonia Has been requiring pressor resents to maintain blood pressure 06/27/2022 The patient was seen and examined in ICU He is extubated and has been saturating on 6 L OxiMax Minimally shortness of breath at rest but denies any chest pain and/or palpitation No abdominal pain nausea or vomiting Review of Systems Review of Systems: All systems reviewed and are unremarkable except as noted below Respiratory: Moderate shortness of breath at rest on oxygen mask Physical Exam Physical Exam: Status post extubation and saturating normally on 6 L oxygen mask Constitutional: well developed, well nourished and + obese; not ill appearing ENMT: external ear and nose normal, oropharynx normal Neck: trachea midline, no thyromegaly Respiratory: no respiratory distress Auscultation: + diminished lung sounds and + crackles (Transmitted bronchial sound) Cardiovascular: Rate/Rhythm: regular rate and regular rhythm; not tachycardic Heart Sounds: normal S1 and normal S2; no murmur Extremities: + edema (Trace edema bilaterally) Gastrointestinal (Abdomen): Inspection/Auscultation: normal bowel sounds; abdomen not distended Percussion/Palpation: abdomen soft; abdomen nontender Musculoskeletal: No acute arthritis involving any joint Neurologic: Alert and awake. Moves all extremities Lymphatic: no cervical or axillary lymphadenopathy Results & Data Results & Data ([facility]) Vital Signs (Past 12 Hours) Vital Signs Temp Pulse Pulse Resp BP Pulse Ox O2 Del Method 06/27/22 10:00 35.9 C L 106 H 19 96 06/27/22 10:00 130/76 06/27/22 09:00 36.3 C L 119 H 17 96 06/27/22 09:00 132/69 06/27/22 08:00 36.9 C 129 H 24 92 06/27/22 08:00 152/83 H 06/27/22 07:00 36.9 C 60 22 94 06/27/22 07:00 119/59 L 06/27/22 08:00 Oxymask 06/27/22 08:10 123 H 22 93 Oxymask 06/27/22 07:34 06/27/22 06:00 36.8 C 61 18 93 06/27/22 06:00 122/63 06/27/22 05:00 36.7 C 71 22 94 06/27/22 05:00 139/66 06/27/22 04:01 36.8 C 77 22 93 06/27/22 04:01 106/84 06/27/22 04:00 36.9 C 82 22 83 L 06/27/22 04:00 06/27/22 03:00 36.8 C 68 22 93 06/27/22 03:00 117/61 06/27/22 02:00 36.8 C 60 22 94 06/27/22 02:00 119/60 06/27/22 01:00 36.7 C 61 22 93 06/27/22 01:00 118/58 L 06/27/22 00:00 36.6 C 72 22 93 06/27/22 00:00 129/65 06/27/22 02:07 59 L 23 94 06/27/22 01:58 60 23 94 Mechanical Vent 06/27/22 00:00 60 06/27/22 00:00 O2 Flow Rate FiO2 06/27/22 10:00 06/27/22 10:00 06/27/22 09:00 06/27/22 09:00 06/27/22 08:00 06/27/22 08:00 06/27/22 07:00 06/27/22 07:00 06/27/22 08:00 5 06/27/22 08:10 6 06/27/22 07:34 40 06/27/22 06:00 06/27/22 06:00 06/27/22 05:00 06/27/22 05:00 06/27/22 04:01 06/27/22 04:01 06/27/22 04:00 06/27/22 04:00 40 06/27/22 03:00 06/27/22 03:00 06/27/22 02:00 06/27/22 02:00 06/27/22 01:00 06/27/22 01:00 06/27/22 00:00 06/27/22 00:00 06/27/22 02:07 40 06/27/22 01:58 40 06/27/22 00:00 06/27/22 00:00 40 Laboratory Results Short CBC 06/27/22 Range/Units 04:01 WBC 18.13 H (4.8-10.8) K/ul Hgb 12.4 L (14.0-18.0) g/dl Hct 37.5 L (42.0-52.0) % Plt Count 143 (130-400) K/uL BMP 06/27/22 04:01 Sodium 139 Potassium 4.3 Chloride 100 Carbon Dioxide 35 H BUN 26 H Creatinine 0.89 D Glucose 196 H Calcium 8.9 Medications Administered Current Inpatient Medications Albuterol (Albut/Ipratrop 3mg/0.5mg Neb 3 Ml Vial) 3 ml NEB QIDR [facility]; Protocol Stop: 07/26/22 06:59 Last Admin: 06/27/22 11:17 Dose: 3 ml Albuterol (Albut/Ipratrop 3mg/0.5mg Neb 3 Ml Vial) 3 ml NEB Q2H PRN; Protocol PRN Reason: Shortness Of Breath Or Wheezing Stop: 07/26/22 00:37 Last Admin: 06/27/22 01:58 Dose: 3 ml Budesonide (Budesonide 0.5 Mg/2 Ml Vial (Pulmicort)) 0.5 mg NEB BIDR [facility] Stop: 07/27/22 18:59 Last Admin: 06/27/22 08:10 Dose: 0.5 mg Dextrose (Dextrose 50% 50 Ml Syringe) 25 - 50 ml IV UD PRN; Protocol PRN Reason: Hypoglycemia Protocol Stop: 07/27/22 06:28 Enoxaparin Sodium (Enoxaparin Inj 40 Mg/0.4 Ml Syr) 40 mg SQ Q24H [facility] Stop: 07/26/22 08:59 Last Admin: 06/27/22 08:31 Dose: 40 mg Formoterol Fumarate (Formoterol 20 Mcg/2 Ml Vial) 20 mcg NEB BIDR [facility] Stop: 07/27/22 08:59 Last Admin: 06/27/22 08:10 Dose: 20 mcg Glucagon (Glucagon For Inj 1 Mg Vial) 1 mg SQ UD PRN; Protocol PRN Reason: Hypoglycemia Protocol Stop: 07/27/22 06:28 Glucose (Glucose 40% Gel 15 Gm Tube) 15 - 30 gm PO UD PRN; Protocol PRN Reason: Hypoglycemia Protocol Stop: 07/27/22 06:28 Glucose (Glucose 10 Tab/Tube) 4 - 8 tab PO UD PRN; Protocol PRN Reason: Hypoglycemia Treatment Stop: 07/27/22 06:28 Sodium Chloride (Nss 1000ml) 1,000 mls @ 75 mls/hr IV .[id number] [facility] Stop: 07/26/22 00:37 Last Infusion: 06/27/22 07:00 Dose: 75 mls/hr Doxycycline Hyclate 100 mg/ (Dextrose) 110 mls @ 50 mls/hr IV Q12H [facility] Stop: 07/03/22 00:37 Last Infusion: 06/27/22 02:59 Dose: Infused Ertapenem 1,000 mg/ Syringe 10 mls @ 2 mls/min IV Q24H [facility] Stop: 07/03/22 00:59 Last Admin: 06/27/22 00:46 Dose: 2 mls/min Vancomycin HCl 1,000 mg/ (Sodium Chloride) 270 mls @ 200 mls/hr IV Q12H [facility]; Protocol Stop: 07/03/22 11:59 Last Infusion: 06/27/22 00:42 Dose: Infused Pantoprazole Sodium 40 mg/ (Syringe) 10 mls @ 5 mls/min IV DAILY@1100 [facility] Stop: 07/27/22 10:59 Last Admin: 06/27/22 08:31 Dose: 5 mls/min Methylprednisolone 40 mg/ (Syringe) 0.64 mls @ 1.5 mls/min IV Q12H [facility] Stop: 07/27/22 07:59 Last Admin: 06/27/22 08:31 Dose: 1.5 mls/min Insulin Aspart (Insulin Aspart Per Unit) 0 units SC Q6 [facility] Stop: 07/27/22 06:59 Last Admin: 06/27/22 08:30 Dose: 1 units Miscellaneous (Carbohydrates For Hypoglycemia ) 15 - 30 gm PO UD PRN PRN Reason: Hypoglycemia Protocol Stop: 07/27/22 06:28 Miscellaneous Information (Vancomycin Consult Active) 1 each N/A UD PRN PRN Reason: Consult Stop: 07/25/22 22:09 Tamsulosin HCl (Tamsulosin Hcl 0.4 Mg Cap) 0.4 mg PO DAILY [facility] Stop: 07/26/22 08:59 Last Admin: 06/27/22 08:16 Dose: Not Given
[2022-06-27] MEDS: VANCOMYCIN HCL 1,000 MG in SODIUM CHLORIDE 0.9% 250 ML IV SCH (12:41)
--- NOTE | 2022-06-27 12:53 | Pharmacy Report ---
Pharmacy PK ABX Note - Date of Service June 27, 2022 - Assessment and Plan Assessment 57 year old M receiving vancomycin,ertapenem, and doxycycline for treatment of possible pulmonary source. Pertinent microbiologic data includes: Negative MRSA Nasal Swab, per provider hx of MRSA bacteremia. Thus, therapy will continue pending bcx results. Day # 1 of antimicrobial therapy. 06/27: Patient's renal function is fluctuating somewhat but improved today. Discussed with provider and will wait bronch culture results, review again tomorrow. Today's level and renal function indicate current regimen will be subtherapeutic. Will increase regimen. Plan Vancomycin * Increase dose: 1500 mg IV every 12 hours * New Regimen is predicted to achieve target AUC/JUANA of 400-600 mg/L.hr * Trough level ordered for: repeat in ~48 hours if therapy to continue or as clinically indicated Pharmacy will continue to follow and will adjust dose/frequency as necessary. Thank you. Pharmacy has transitioned to AUC monitoring for vancomycin. AUC/JUANA is the preferred PK/PD target and is associated with decreased risk of nephrotoxicity compared to traditional trough targets.
[2022-06-27] MEDS: VANCOMYCIN HCL 1,500 MG in SODIUM CHLORIDE 0.9% 500 ML IV SCH (20:18)
[2022-06-28] MEDS: INSULIN ASPART PER UNIT SC SCH ×4 (01:09→15:24)
[2022-06-28] MEDS: DOXYCYCLINE HYCLATE 100 MG in DEXTROSE 5% 100 ML IV SCH ×2 (01:27→13:29)
[2022-06-28] MEDS: ERTAPENEM SODIUM 1,000 MG in SYRINGE 0 ML IV SCH (01:27)
[2022-06-28 05:27] LABS: Calcium 9.1 mg/dl (8.5-10.1); Creatinine Clr Calc Pharmacy 128.9 ml/min; Est GFR (African American) 114.1 ml/min; Est GFR (Non-African American) 98.5 ml/min; Magnesium 2.6 mg/dl (1.7-2.4); Potassium 4.7 mmol/L (3.5-5.1)
[2022-06-28 06:05] LABS: Basophils # (auto) 0.04 K/uL (0-0.2); Basophils % (auto) 0.3 %; Hematocrit (blood only) 39.2 % (42.0-52.0); Hemoglobin 12.4 g/dl (14.0-18.0); Immature Granulocytes # (auto) 0.19 K/uL (0.01-0.20); Immature Granulocytes % (auto) 1.5 %; Lymphocytes # (auto) 8.48 K/uL (1.2-3.4); Lymphocytes % (auto) 67.9 %; Mean Corpuscular Hemoglobin 30.8 pg (25.0-34.0); Mean Corpuscular Hgb Conc 31.6 g/dL (32.0-36.0); Mean Corpuscular Volume 97.3 fL (80.0-100.0); Mean Platelet Volume 11.1 fL (9.4-12.4); Monocytes # (auto) 0.48 K/uL (0.11-0.59); Monocytes % (auto) 3.8 %; Neutrophils # (auto) 3.29 K/uL (1.40-6.50); Neutrophils % (auto) 26.5 %; Platelet Count 113 K/uL (130-400); RDW Coefficient of Variation 14.5 % (11.5-14.5); Red Blood Count 4.03 M/uL (4.70-6.10); White Blood Count 12.48 K/ul (4.8-10.8)
[2022-06-28] MEDS: ALBUT/IPRATROP 3MG/0.5MG NEB 3 ML VIAL NEB SCH ×3 (07:09→23:26)
[2022-06-28] MEDS: BUDESONIDE 0.5 MG/2 ML VIAL (PULMICORT) NEB SCH ×2 (07:09→21:38)
[2022-06-28] MEDS: FORMOTEROL 20 MCG/2 ML VIAL NEB SCH ×2 (07:09→21:38)
--- NOTE | 2022-06-28 07:39 | Critical Care Progress Note ---
Date of Service June 28, 2022 Assessment & Plan (1) Acute hypercapnic respiratory failure: (2) Sepsis: (3) CLL (chronic lymphocytic leukemia): (4) COPD (chronic obstructive pulmonary disease): (5) CHF (congestive heart failure): (6) Acute respiratory failure with hypoxia: Plan Impression: 57-year-old male with known COPD, heart failure, and CLL admitted with hypoxemic hypercarbic respiratory failure. CT chest 06/25/2022 personally reviewed: Centrilobular emphysema appreciated bilaterally, left lower lobe consolidative process with possible cavitation 8 mm right lower lobe pulmonary nodule Minimal mediastinal lymphadenopathy Recommendations: Neurologic: CAM-ICU negative Cardiovascular: History of heart failure Pulmonary: --Acute on chronic hypoxemic and hypercarbic respiratory failure Secondary to COPD exacerbation Extubated 06/27/2022 Continue with bronchodilators, BiPAP nightly and as needed shortness of breath --Abnormal chest CT Patient seems to have left lower lobe consolidative process with possible cavity --> seems more to be in the pleura This was present even on CT chest 10/29/2020 but has improved from that time Repeat CT chest in 6-8 weeks -- Current smoker Importance of quitting explained to patient in depth ID: --History of MRSA pneumonia Persistent consolidation in the left lower lobe which may be aspiration related to his hypercarbic respiratory failure and altered mental status. Day #3 vancomycin/doxycycline/ertapenem. Cultures are showing no growth to da marilu. Fungitell pending. Continue antibiotics for now pending culture data. PCT normal - findings may represent chronic condition. Renal: Normal renal function with adequate electrolytes. Acid-base status with chronic respiratory acidosis. Discontinue macdonald when extubated. GI: --Epigastric and right upper quadrant pain Alk phos as well as AST and ALT were within normal limit Heme-onc: --History of CLL Holding therapy for now. -- Thrombocytopenia Continue to monitor platelets Endocrine: Continue with glycemic control per protocol. --Prophylaxis VTE:Lovenox GI: Pantoprazole Lines: Peripheral Diet: Cardiac Plan: In/out: +78 mL, total positive 3.1 L since coming to the hospital Continue with budesonide and Pulmicort. We will decrease Solu-Medrol to 40 mg once a day I will order LFT, GGT as well as lipase level Right upper quadrant ultrasound to look at the gallbladder. Laxatives for constipation Patient hemodynamically stable to be downgraded to medical floor Please note the above document was generated using voice recognition software. It may contain grammatical, syntax or spelling errors.Any formal questions or concerns about the content, text or information contained within the body of this dictation should be directly addressed to the provider for clarification. Admission and Anticipated Discharge Date Admission Date: June 25, 2022 Subjective Patient seen and examined at bedside. No acute distress Overnight patient desaturated while on BiPAP. Patient did not like BiPAP especially the mask. Overall he states feeling better. Does complain of some abdominal discomfort especially epigastric and right upper quadrant. No nausea or vomiting, positive flatulence Shortness of breath is improved. Denies any cough. Was saturating 93-94% on 3 L nasal cannula Review of Systems Review of Systems: All systems reviewed & are unremarkable except as noted in Subjective Physical Exam Physical Exam: Constitutional: No acute distress HEENT: EOMI, PERRLA Respiratory system: Decreased air entry bilaterally, no wheeze, no rhonchi, positive crackles bilateral lower lobes CVS: S1-S2 positive, no murmurs or gallops Abdomen: Soft, nontender, nondistended, positive bowel sounds x4 Extremities: +2 pulses bilaterally radialis/ dorsalis pedis, no cyanosis, no edema Neuro: Awake alert oriented x3 Psych: Normal mood and affect G/U: Positive Macdonald Skin: no rashes, warm and dry Lymphatic: no cervical or axillary lymphadenopathy Results & Data Results & Data ([facility]) Vital Signs (Past 12 Hours) Vital Signs Pulse Pulse Resp Pulse Ox O2 Del Method O2 Flow Rate 06/28/22 07:10 89 19 95 Nasal Cannula 3 06/27/22 20:00 Nasal Cannula 4 06/27/22 22:43 86 21 90 4 Laboratory Results 06/28/22 04:38 06/28/22 04:38 Coding Level of Care Code 57235 SUB INP/OBS CARE 3/50MIN Diagnoses Acute hypercapnic respiratory failure J96.02 Sepsis A41.9 CLL (chronic lymphocytic leukemia) C91.10 COPD (chronic obstructive pulmonary disease) J44.9 CHF (congestive heart failure) I50.9 Acute respiratory failure with hypoxia J96.01
[2022-06-28] MEDS: TAMSULOSIN HCL 0.4 MG CAP PO SCH (07:50)
[2022-06-28] MEDS: ENOXAPARIN INJ 40 MG/0.4 ML SYR SQ SCH (07:50)
[2022-06-28] MEDS: methylPREDNISolone 40 MG in SYRINGE 0 ML IV SCH ×2 (07:50→21:07)
[2022-06-28] MEDS: VANCOMYCIN HCL 1,500 MG in SODIUM CHLORIDE 0.9% 500 ML IV SCH ×2 (07:51→21:06)
--- NOTE | 2022-06-28 09:46 | Ultrasound Report ---
ABDOMINAL ULTRASOUND, RIGHT UPPER QUADRANT HISTORY: Acute right upper quadrant abdominal pain Right upper quadrant epigastric pain. COMPARISON: CTA chest 06/25/2022. FINDINGS: Pancreas: The pancreas demonstrates a normal echotexture. Liver: The liver measures up to 21 cm in length and demonstrates slightly increased echogenicity with out hepatic mass nodularity identified. Gallbladder: No gallbladder wall thickening. Trace, bladder sludge. No gallstones. CBD: 0.4 Right kidney: No hydronephrosis. IMPRESSION: 1. Trace gallbladder sludge. No cholelithiasis or sonographic evidence of acute cholecystitis. 2. Questioned mild hepatic steatosis. 3. No biliary ductal dilation. ACT 112: Negative or not required by law. Electronically signed by: Geovanny Mercado M.D. 06/28/2022 9:45 AM
[2022-06-28] MEDS ORDERED: PANTOprazole 40 MG TAB PO ONE (10:00)
[2022-06-28] MEDS ORDERED: UMECLIDINIUM BROMIDE 62.5MCG/BLISTER 7 PUFFS/INHALER INH ONE (10:00)
[2022-06-28 10:13] LABS: Bilirubin Direct 0.1 mg/dl (0-0.2); Bilirubin,Total 0.6 mg/dl (0.2-1.0)
[2022-06-28 12:18] LABS: iSTAT Allen Test Pass; iSTAT Art Bld Gas pCO2 Correct 62 mmHg (35-46); iSTAT Art Bld Gas pH Corrected 7.404 (7.35-7.45); iSTAT Arterial Blood Gas HCO3 39 meg/L (19-24); iSTAT Arterial Blood Gas pCO2 62 mmHg (35-46); iSTAT Arterial Blood Gas pO2 55 mmHg (80-95); iSTAT Arterial Blood Gas pO2 C 54; iSTAT Carbon Dioxide > 40 mmol/L (24-31); iSTAT Hematocrit 40 % (42-52); iSTAT Hemoglobin 13.6 g/dl (14.0-18.0); iSTAT Potassium 4.8 mmol/L (3.3-5.0); iSTAT Site R Radial; iSTAT Sodium 139 mmol/L (135-144)
--- NOTE | 2022-06-28 14:06 | Hospitalist Progress Note ---
Date of Service June 28, 2022 Assessment & Plan (1) Acute hypercapnic respiratory failure: Plan: Was brought in with severe respiratory distress and required intubation Noted to have mildly elevated white count of 12.63 without any elevation of procalcitonin no elevation of the temperature Chest CT showed multilobar pneumonia without any pulmonary embolism Has been on mechanical ventilator and is sedated Appreciate criminology professor input and recommendation Blood cultures are negative and sputum gram stain pinpoint growth and acid first bacteria and fungal culture pending S/p extubation on 06/27/2022-he has been maintaining normal saturation with oxygen mask around 6 L/min Remains reasonably stable Continue with current inhalers including budesonide and Pulmicort Solu-Medrol dose has been decreased to 40 mg once a day Right upper quadrant pain Benign exam LFTs are normal Awaiting ultrasound (2) COPD (chronic obstructive pulmonary disease): Plan: COPD exacerbation with pneumonia as above (3) Sepsis: Plan: Likely secondary to multilobar pneumonia Blood and sputum cultures are pending Has been on intravenous Invanz, doxycycline and vancomycin for now given the history of MRSA positive in the past-MRSA is negative this time De-escalate antibiotic as per criminology professor Still on intravenous Doxy, Invanz and vancomycin Abnormal CT of the chest No change compared with that of 10/29/2020 To have a repeat CAT scan of the chest in 6 months (4) CHF (congestive heart failure): Plan: History of congestive heart failure with preserved EF BNP has been negative and no signs of fluid overload Chest x-ray is not showing any pulmonary edema but does have infiltration as before (5) Multifocal pneumonia: Plan: As above Has been on triple antibiotics including Vanco, ertapenem and Doxy (6) HTN (hypertension): Plan: Blood pressure is maintained right now but the patient required very small dose of pressor resents initially to maintain blood pressure (7) CLL (chronic lymphocytic leukemia): Plan: History of CLL White count is not much elevated Follows [facility] Dr. Ramirez White count remains mildly elevated at 18.13 (8) Obesity: Plan DVT prophylaxis SCDs and subcu Lovenox CODE STATUS Full Admission and Anticipated Discharge Date Admission Date: June 25, 2022 Subjective 06/26/2022 The patient was seen and examined in ICU Remains intubated due to respiratory failure secondary to multilobar pneumonia Has been requiring pressor resents to maintain blood pressure 06/27/2022 The patient was seen and examined in ICU He is extubated and has been saturating on 6 L OxiMax Minimally shortness of breath at rest but denies any chest pain and/or palpitation No abdominal pain nausea or vomiting 06/28/2022 The patient was seen and examined in ICU He is out of bed on a chair and is off pressors Still has moderate shortness of breath at rest and has been requiring 3 L to maintain saturation He will be downgraded to MedSurg unit Review of Systems Review of Systems: All systems reviewed and are unremarkable except as noted below Physical Exam Physical Exam: Status post extubation and saturating normally on 3 L nasal cannula today and sitting on a chair outside bed Constitutional: well developed, well nourished and + obese; not ill appearing ENMT: external ear and nose normal, oropharynx normal Neck: trachea midline, no thyromegaly Respiratory: no respiratory distress Auscultation: + diminished lung sounds and + crackles (Transmitted bronchial sound) Cardiovascular: Rate/Rhythm: regular rate and regular rhythm; not tachycardic Heart Sounds: normal S1 and normal S2; no murmur Extremities: + edema (Trace edema bilaterally) Gastrointestinal (Abdomen): Inspection/Auscultation: normal bowel sounds; abdomen not distended Percussion/Palpation: abdomen soft; abdomen nontender Musculoskeletal: No acute arthritis involving any of the joints Neurologic: Alert, awake and oriented x3. Generally weak but no focal sensory or motor deficit appreciated Lymphatic: no cervical or axillary lymphadenopathy Results & Data Results & Data ([facility]) Vital Signs (Past 12 Hours) Vital Signs Temp Pulse Pulse Resp BP Pulse Ox O2 Del Method 06/28/22 13:00 87 22 94 Nasal Cannula 06/28/22 12:00 98 H 28 H 90 06/28/22 11:19 36.7 C 06/28/22 11:00 93 H 24 90 Nasal Cannula 06/28/22 10:58 99 H 16 06/28/22 10:58 162/85 H 06/28/22 10:00 96 H 22 94 06/28/22 10:00 161/93 H 06/28/22 09:00 89 21 90 06/28/22 09:00 153/79 H 06/28/22 08:00 Nasal Cannula 06/28/22 08:00 94 H 17 91 Nasal Cannula 06/28/22 08:00 149/73 H 06/28/22 07:00 85 16 95 06/28/22 07:00 137/69 06/28/22 07:10 89 19 95 Nasal Cannula O2 Flow Rate 06/28/22 13:00 3 06/28/22 12:00 06/28/22 11:19 06/28/22 11:00 3 06/28/22 10:58 06/28/22 10:58 06/28/22 10:00 06/28/22 10:00 06/28/22 09:00 06/28/22 09:00 06/28/22 08:00 3 06/28/22 08:00 3 06/28/22 08:00 06/28/22 07:00 06/28/22 07:00 06/28/22 07:10 3 Laboratory Results Short CBC 06/28/22 Range/Units 04:38 WBC 12.48 H (4.8-10.8) K/ul Hgb 12.4 L (14.0-18.0) g/dl Hct 39.2 L (42.0-52.0) % Plt Count 113 L (130-400) K/uL BMP 06/28/22 04:38 Sodium 141 Potassium 4.7 Chloride 100 Carbon Dioxide 39 H BUN 24 H Creatinine 0.80 Glucose 121 H Calcium 9.1 Liver Function 06/28/22 Range/Units 08:45 Total Bilirubin 0.6 (0.2-1.0) mg/dl Direct Bilirubin 0.1 (0-0.2) mg/dl AST 9 L (13-39) U/L ALT 11 (7-52) U/L Alkaline Phosphatase 76 (34-104) U/L Albumin 4.0 (3.4-5.0) gm/dl Medications Administered Current Inpatient Medications Albuterol (Albut/Ipratrop 3mg/0.5mg Neb 3 Ml Vial) 3 ml NEB Q2H PRN; Protocol PRN Reason: Shortness Of Breath Or Wheezing Stop: 07/26/22 00:37 Last Admin: 06/27/22 01:58 Dose: 3 ml Albuterol (Albut/Ipratrop 3mg/0.5mg Neb 3 Ml Vial) 3 ml NEB Q8R [facility]; Protocol Stop: 07/28/22 14:59 Budesonide (Budesonide 0.5 Mg/2 Ml Vial (Pulmicort)) 0.5 mg NEB BIDR [facility] Stop: 07/27/22 18:59 Last Admin: 06/28/22 07:09 Dose: 0.5 mg Dextrose (Dextrose 50% 50 Ml Syringe) 25 - 50 ml IV UD PRN; Protocol PRN Reason: Hypoglycemia Protocol Stop: 07/27/22 06:28 Enoxaparin Sodium (Enoxaparin Inj 40 Mg/0.4 Ml Syr) 40 mg SQ Q24H [facility] Stop: 07/26/22 08:59 Last Admin: 06/28/22 07:50 Dose: 40 mg Formoterol Fumarate (Formoterol 20 Mcg/2 Ml Vial) 20 mcg NEB BIDR [facility] Stop: 07/27/22 08:59 Last Admin: 06/28/22 07:09 Dose: 20 mcg Glucagon (Glucagon For Inj 1 Mg Vial) 1 mg SQ UD PRN; Protocol PRN Reason: Hypoglycemia Protocol Stop: 07/27/22 06:28 Glucose (Glucose 40% Gel 15 Gm Tube) 15 - 30 gm PO UD PRN; Protocol PRN Reason: Hypoglycemia Protocol Stop: 07/27/22 06:28 Glucose (Glucose 10 Tab/Tube) 4 - 8 tab PO UD PRN; Protocol PRN Reason: Hypoglycemia Treatment Stop: 07/27/22 06:28 Doxycycline Hyclate 100 mg/ (Dextrose) 110 mls @ 50 mls/hr IV Q12H [facility] Stop: 06/30/22 16:11 Last Admin: 06/28/22 13:29 Dose: 50 mls/hr Ertapenem 1,000 mg/ Syringe 10 mls @ 2 mls/min IV Q24H [facility] Stop: 07/03/22 00:59 Last Admin: 06/28/22 01:27 Dose: 2 mls/min Methylprednisolone 40 mg/ (Syringe) 0.64 mls @ 1.5 mls/min IV Q12H [facility] Stop: 06/28/22 23:59 Last Admin: 06/28/22 07:50 Dose: 1.5 mls/min Vancomycin HCl 1,500 mg/ (Sodium Chloride) 530 mls @ 200 mls/hr IV Q12H [facility]; Protocol Stop: 06/28/22 23:59 Last Infusion: 06/28/22 09:28 Dose: Infused Methylprednisolone 40 mg/ (Syringe) 0.64 mls @ 1.5 mls/min IV Q24H [facility] Stop: 07/29/22 08:59 Insulin Aspart (Insulin Aspart Per Unit) 0 units SC Q6 [facility] Stop: 07/27/22 06:59 Last Admin: 06/28/22 10:44 Dose: Not Given Miscellaneous (Carbohydrates For Hypoglycemia ) 15 - 30 gm PO UD PRN PRN Reason: Hypoglycemia Protocol Stop: 07/27/22 06:28 Miscellaneous Information (Vancomycin Consult Active) 1 each N/A UD PRN PRN Reason: Consult Stop: 06/28/22 23:59 Pantoprazole Sodium (Pantoprazole 40 Mg Tab) 40 mg PO BID [facility] Stop: 07/28/22 20:59 Tamsulosin HCl (Tamsulosin Hcl 0.4 Mg Cap) 0.4 mg PO DAILY [facility] Stop: 07/26/22 08:59 Last Admin: 06/28/22 07:50 Dose: 0.4 mg Umeclidinium [place] (Umeclidinium [place] 62.5mcg/Blister 7 Puffs/Inhaler) 1 puffs INH DAILY [facility] Stop: 07/29/22 08:59
[2022-06-28] MEDS: PANTOprazole 40 MG TAB PO SCH (21:08)
[2022-06-28] MEDS ORDERED: POLYETHYLENE (MIRALAX) 17 GM PACK PO PRN (22:38)
[2022-06-28] MEDS: ACETAMINOPHEN 325 MG TAB PO PRN (22:46)
[2022-06-29] MEDS: ERTAPENEM SODIUM 1,000 MG in SYRINGE 0 ML IV SCH (00:16)
[2022-06-29] MEDS: DOXYCYCLINE HYCLATE 100 MG in DEXTROSE 5% 100 ML IV SCH (01:33)
[2022-06-29] MEDS: FORMOTEROL 20 MCG/2 ML VIAL NEB SCH ×2 (07:52→19:19)
[2022-06-29] MEDS: BUDESONIDE 0.5 MG/2 ML VIAL (PULMICORT) NEB SCH ×2 (07:52→19:18)
[2022-06-29] MEDS: ALBUT/IPRATROP 3MG/0.5MG NEB 3 ML VIAL NEB SCH ×3 (07:53→19:19)
[2022-06-29] MEDS: PANTOprazole 40 MG TAB PO SCH ×2 (08:19→21:05)
[2022-06-29] MEDS: UMECLIDINIUM BROMIDE 62.5MCG/BLISTER 7 PUFFS/INHALER INH SCH (08:19)
[2022-06-29] MEDS: TAMSULOSIN HCL 0.4 MG CAP PO SCH (08:19)
[2022-06-29] MEDS: methylPREDNISolone 40 MG in SYRINGE 0 ML IV SCH (08:19)
[2022-06-29] MEDS: ENOXAPARIN INJ 40 MG/0.4 ML SYR SQ SCH (08:19)
[2022-06-29 09:01] LABS: Creatinine Clr Calc Pharmacy 121.3 ml/min; Est GFR (African American) 111.3 ml/min
[2022-06-29 09:03] LABS: Base Excess ABG 12.3 mEq/L (-9-1.8); HCO3 ABG 40 mmol/L (19-24); Oxygen Saturation ABG 94.1 % (90-95); PCO2 ABG 63 mmHg (35-46); PO2 ABG 63 mmHg (80-95); pH ABG 7.41 (7.35-7.45)
[2022-06-29 09:28] LABS: Allen Test Pos (Pos)
[2022-06-29] MEDS ORDERED: DOXYCYCLINE HYCLATE 100 MG CAP PO ONE (09:45)
--- NOTE | 2022-06-29 09:51 | Pulmonology Progress Note ---
Date of Service June 29, 2022 Assessment & Plan (1) Acute hypercapnic respiratory failure: (2) Sepsis: (3) CLL (chronic lymphocytic leukemia): (4) COPD (chronic obstructive pulmonary disease): (5) Acute respiratory failure with hypoxia: Plan Impression: 57-year-old male with known COPD, heart failure, and CLL admitted with hypoxemic hypercarbic respiratory failure. CT chest 06/25/2022 personally reviewed: Centrilobular emphysema appreciated bilaterally, left lower lobe consolidative process with possible cavitation 8 mm right lower lobe pulmonary nodule Minimal mediastinal lymphadenopathy ABG 7. --Acute on chronic hypoxemic and hypercarbic respiratory failure On 2 L oxygen at home Secondary to COPD exacerbation Extubated 06/27/2022 Continue with bronchodilators, BiPAP nightly and as needed shortness of breath --Abnormal chest CT Patient seems to have left lower lobe consolidative process with possible cavity --> seems more to be in the pleura This was present even on CT chest 10/29/2020 but has improved from that time Repeat CT chest in 6-8 weeks -- Current smoker Importance of quitting explained to patient in depth --History of MRSA pneumonia Persistent consolidation in the left lower lobe Day #4 vancomycin/doxycycline/ertapenem. Sputum culture is growing H influenza. BAL cultures are negative to date Pathology still pending -- COPD with emphysema plan as above Plan: BAL culture was negative for everything Sputum culture when he came in from the vent was positive for H. influenzae Patient did get cefepime in the past without any issues Continue with doxycycline for total of 7 days along with Flagyl DC ertapenem Can transition to p.o. prednisone as of tomorrow Case was discussed with Dr. Lopez and Pharmacist Please note the above document was generated using voice recognition software. It may contain grammatical, syntax or spelling errors.Any formal questions or concerns about the content, text or information contained within the body of this dictation should be directly addressed to the provider for clarification. Admission and Anticipated Discharge Date Admission Date: June 25, 2022 Subjective Patient seen and examined at bedside. No acute distress, no adverse events overnight Denies any chest pain Shortness of breath improved Coughing up clear phlegm. No hemoptysis Fair appetite, no nausea vomiting Review of Systems Review of Systems: All systems reviewed & are unremarkable except as noted in Subjective Physical Exam Physical Exam: Constitutional: No acute distress HEENT: EOMI, PERRLA Respiratory system: Decreased air entry bilaterally, no wheeze, no rhonchi, positive crackles bilateral lower lobes CVS: S1-S2 positive, no murmurs or gallops Abdomen: Soft, nontender, nondistended, positive bowel sounds x4 Extremities: +2 pulses bilaterally radialis/ dorsalis pedis, no cyanosis, no edema Neuro: Awake alert oriented x3 Psych: Normal mood and affect G/U: No Ramon Skin: no rashes, warm and dry Lymphatic: no cervical or axillary lymphadenopathy Results & Data Results & Data ([facility]) Vital Signs (Past 12 Hours) Vital Signs Temp Pulse Resp BP Pulse Ox O2 Del Method O2 Flow Rate 06/29/22 08:06 36.6 C 97 H 18 175/79 H 91 Nasal Cannula 2 06/29/22 07:53 70 18 97 Nasal Cannula 2 06/28/22 23:27 90 18 90 Nasal Cannula 2 06/28/22 22:00 Nasal Cannula 3 Laboratory Results 06/28/22 04:38 06/29/22 08:29 PG Care Time/CCT Total # of Minutes Spent Total Time Spent with Patient: Total time spent is greater than 50% in coordination of care (as documented) at patient's floor/unit and/or counseling patient: Coding Level of Care Code 67323 SUB INP/OBS CARE 3/50MIN Diagnoses Acute hypercapnic respiratory failure J96.02 Sepsis A41.9 CLL (chronic lymphocytic leukemia) C91.10 COPD (chronic obstructive pulmonary disease) J44.9 Acute respiratory failure with hypoxia J96.01
[2022-06-29] MEDS ORDERED: metroNIDAZOLE 500 MG TAB PO ONE (10:00)
[2022-06-29 12:07] LABS: Estimated Average Glucose 103 mg/dl; Hemoglobin A1C 5.2 % (4.5-5.6)
--- NOTE | 2022-06-29 14:52 | Hospitalist Progress Note ---
Date of Service June 29, 2022 Assessment & Plan (1) Acute hypercapnic respiratory failure: Plan: Was brought in with severe respiratory distress and required intubation Noted to have mildly elevated white count of 12.63 without any elevation of procalcitonin no elevation of the temperature Chest CT showed multilobar pneumonia without any pulmonary embolism Has been on mechanical ventilator and is sedated Appreciate pedodontist input and recommendation Blood cultures are negative and sputum gram stain pinpoint growth and acid first bacteria and fungal culture pending S/p extubation on 06/27/2022-he has been maintaining normal saturation with oxygen mask around 6 L/min Remains reasonably stable Continue with current inhalers including budesonide and Pulmicort Solu-Medrol dose has been decreased to 40 mg once a day Clinically better and will get prednisone for a short course on discharge tomorrow Right upper quadrant pain Benign exam LFTs are normal Awaiting ultrasound-no cholecystitis Denies any more pain (2) COPD (chronic obstructive pulmonary disease): Plan: COPD exacerbation with pneumonia as above We will give doxycycline for a course of 7 days Short taper dose of steroid (3) Sepsis: Plan: Likely secondary to multilobar pneumonia Blood and sputum cultures are pending Has been on intravenous Invanz, doxycycline and vancomycin for now given the history of MRSA positive in the past-MRSA is negative this time De-escalate antibiotic as per pedodontist Still on intravenous Doxy, Invanz and vancomycin We will get doxycycline on discharge otherwise fine Abnormal CT of the chest No change compared with that of 10/29/2020 To have a repeat CAT scan of the chest in 6 months (4) CHF (congestive heart failure): Plan: History of congestive heart failure with preserved EF BNP has been negative and no signs of fluid overload Chest x-ray is not showing any pulmonary edema but does have infiltration as before Not volume overloaded (5) Multifocal pneumonia: Plan: As above Has been on triple antibiotics including Vanco, ertapenem and Doxy (6) HTN (hypertension): Plan: Blood pressure is maintained right now but the patient required very small dose of pressor resents initially to maintain blood pressure (7) CLL (chronic lymphocytic leukemia): Plan: History of CLL White count is not much elevated 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 Ramirez White count remains mildly elevated at 18.13 (8) Obesity: Plan DVT prophylaxis SCDs and subcu Lovenox CODE STATUS Full Admission and Anticipated Discharge Date Admission Date: June 25, 2022 Subjective 06/26/2022 The patient was seen and examined in ICU Remains intubated due to respiratory failure secondary to multilobar pneumonia Has been requiring pressor resents to maintain blood pressure 06/27/2022 The patient was seen and examined in ICU He is extubated and has been saturating on 6 L OxiMax Minimally shortness of breath at rest but denies any chest pain and/or palpitation No abdominal pain nausea or vomiting 06/28/2022 The patient was seen and examined in ICU He is out of bed on a chair and is off pressors Still has moderate shortness of breath at rest and has been requiring 3 L to maintain saturation He will be downgraded to MedSur unit 06/29/2022 The patient was seen and examined in medical floor He has been feeling much better and he still has moderate shortness of breath at rest No fever and no chills, no chest pain or palpitation Review of Systems Review of Systems: All systems reviewed and are unremarkable except as noted below Respiratory: Minimal shortness of breath. Physical Exam Physical Exam: Status post extubation and saturating normally on 3 L nasal cannula today and sitting on a chair outside bed Constitutional: well developed, well nourished and + obese; not ill appearing ENMT: external ear and nose normal, oropharynx normal Neck: trachea midline, no thyromegaly Respiratory: no respiratory distress Auscultation: + diminished lung sounds and + crackles (Transmitted bronchial sound) Cardiovascular: Rate/Rhythm: regular rate and regular rhythm; not tachycardic Heart Sounds: normal S1 and normal S2; no murmur Extremities: + edema (Trace edema bilaterally) Gastrointestinal (Abdomen): Inspection/Auscultation: normal bowel sounds; abdomen not distended Percussion/Palpation: abdomen soft; abdomen nontender Musculoskeletal: No acute arthritis involving any of the joints Neurologic: Alert, awake and oriented x3. Generally weak but no focal sensory or motor deficit appreciated Lymphatic: no cervical or axillary lymphadenopathy Results & Data Results & Data ([facility]) Vital Signs (Past 12 Hours) Vital Signs Temp Pulse Resp BP Pulse Ox O2 Del Method O2 Flow Rate 06/29/22 08:35 Nasal Cannula 3 06/29/22 08:06 36.6 C 97 H 18 175/79 H 91 Nasal Cannula 2 06/29/22 07:53 70 18 97 Nasal Cannula 2 Laboratory Results BMP 06/29/22 08:29 Creatinine 0.85 Liver Function 06/28/22 Range/Units 08:45 GGT 21 (3-85) U/L Medications Administered Current Inpatient Medications Acetaminophen (Acetaminophen 325 Mg Tab) 650 mg PO Q4H PRN PRN Reason: Pain or Fever Stop: 07/28/22 22:36 Last Admin: 06/28/22 22:46 Dose: 650 mg Albuterol (Albut/Ipratrop 3mg/0.5mg Neb 3 Ml Vial) 3 ml NEB Q2H PRN; Protocol PRN Reason: Shortness Of Breath Or Wheezing Stop: 07/26/22 00:37 Last Admin: 06/27/22 01:58 Dose: 3 ml Albuterol (Albut/Ipratrop 3mg/0.5mg Neb 3 Ml Vial) 3 ml NEB Q8R [facility]; Protocol Stop: 07/28/22 14:59 Last Admin: 06/29/22 07:53 Dose: Not Given Budesonide (Budesonide 0.5 Mg/2 Ml Vial (Pulmicort)) 0.5 mg NEB BIDR [facility] Stop: 07/27/22 18:59 Last Admin: 06/29/22 07:52 Dose: 0.5 mg Dextrose (Dextrose 50% 50 Ml Syringe) 25 - 50 ml IV UD PRN; Protocol PRN Reason: Hypoglycemia Protocol Stop: 07/27/22 06:28 Doxycycline Hyclate (Doxycycline Hyclate 100 Mg Cap) 100 mg PO BID [facility] Stop: 07/02/22 09:01 Enoxaparin Sodium (Enoxaparin Inj 40 Mg/0.4 Ml Syr) 40 mg SQ Q24H [facility] Stop: 07/26/22 08:59 Last Admin: 06/29/22 08:19 Dose: 40 mg Formoterol Fumarate (Formoterol 20 Mcg/2 Ml Vial) 20 mcg NEB BIDR [facility] Stop: 07/27/22 08:59 Last Admin: 06/29/22 07:52 Dose: 20 mcg Glucagon (Glucagon For Inj 1 Mg Vial) 1 mg SQ UD PRN; Protocol PRN Reason: Hypoglycemia Protocol Stop: 07/27/22 06:28 Glucose (Glucose 40% Gel 15 Gm Tube) 15 - 30 gm PO UD PRN; Protocol PRN Reason: Hypoglycemia Protocol Stop: 07/27/22 06:28 Glucose (Glucose 10 Tab/Tube) 4 - 8 tab PO UD PRN; Protocol PRN Reason: Hypoglycemia Treatment Stop: 07/27/22 06:28 Guaifenesin (Guaifenesin 600 Mg Tabcr) 1,200 mg PO Q12 [facility] Stop: 07/29/22 20:59 Methylprednisolone 40 mg/ (Syringe) 0.64 mls @ 1.5 mls/min IV Q24H [facility] Stop: 07/29/22 08:59 Last Admin: 06/29/22 08:19 Dose: 1.5 mls/min Metronidazole (Metronidazole 500 Mg Tab) 500 mg PO TID [facility] Stop: 07/02/22 13:59 Miscellaneous (Carbohydrates For Hypoglycemia ) 15 - 30 gm PO UD PRN PRN Reason: Hypoglycemia Protocol Stop: 07/27/22 06:28 Pantoprazole Sodium (Pantoprazole 40 Mg Tab) 40 mg PO BID [facility] Stop: 07/28/22 20:59 Last Admin: 06/29/22 08:19 Dose: 40 mg Polyethylene Glycol (Polyethylene (Miralax) 17 Gm Pack) 17 gm PO DAILY PRN PRN Reason: Constipation Stop: 07/28/22 22:37 Last Admin: 06/28/22 22:55 Dose: 17 gm Tamsulosin HCl (Tamsulosin Hcl 0.4 Mg Cap) 0.4 mg PO DAILY [facility] Stop: 07/26/22 08:59 Last Admin: 06/29/22 08:19 Dose: 0.4 mg Umeclidinium [place] (Umeclidinium [place] 62.5mcg/Blister 7 Puffs/Inhaler) 1 puffs INH DAILY [facility] Stop: 07/29/22 08:59 Last Admin: 06/29/22 08:19 Dose: 1 puffs
[2022-06-29] MEDS: metroNIDAZOLE 500 MG TAB PO SCH ×2 (16:04→21:05)
[2022-06-29] MEDS: guaiFENesin 600 MG TABCR PO SCH (21:04)
[2022-06-29] MEDS: DOXYCYCLINE HYCLATE 100 MG CAP PO SCH (21:04)
[2022-06-29] MEDS: ACETAMINOPHEN 325 MG TAB PO PRN (21:05)
[2022-06-30] MEDS: ALBUT/IPRATROP 3MG/0.5MG NEB 3 ML VIAL NEB SCH ×2 (06:58→14:32)
[2022-06-30] MEDS: BUDESONIDE 0.5 MG/2 ML VIAL (PULMICORT) NEB SCH (06:59)
[2022-06-30] MEDS: FORMOTEROL 20 MCG/2 ML VIAL NEB SCH (06:59)
--- NOTE | 2022-06-30 07:51 | Pulmonology Progress Note ---
Date of Service June 30, 2022 Assessment & Plan (1) Acute hypercapnic respiratory failure: (2) Sepsis: (3) CLL (chronic lymphocytic leukemia): (4) COPD (chronic obstructive pulmonary disease): (5) Acute respiratory failure with hypoxia: Plan Impression: 57-year-old male with known COPD, heart failure, and CLL admitted with hypoxemic hypercarbic respiratory failure. CT chest 06/25/2022 personally reviewed: Centrilobular emphysema appreciated bilaterally, left lower lobe consolidative process with possible cavitation 8 mm right lower lobe pulmonary nodule Minimal mediastinal lymphadenopathy ABG 7.41/63/63 --Acute on chronic hypoxemic and hypercarbic respiratory failure On 2 L oxygen at home Secondary to COPD exacerbation Extubated 06/27/2022 Continue with bronchodilators, BiPAP nightly and as needed shortness of breath --Abnormal chest CT Patient seems to have left lower lobe consolidative process with possible cavity --> seems more to be in the pleura This was present even on CT chest 10/29/2020 but has improved from that time Repeat CT chest in 6-8 weeks -- Current smoker Importance of quitting explained to patient in depth --History of MRSA pneumonia Persistent consolidation in the left lower lobe Sputum culture is growing H influenza. BAL cultures are negative to date Pathology 06/28/2022 negative for malignancy -- COPD with emphysema plan as above Plan: Continue with doxycycline as well as Flagyl for total of 6 more days Patient has been refusing BiPAP. I do think he is going to benefit from CPAP/BiPAP at home. Can consider outpatient polysomnography if he is willing to do it Keep O2 saturation between 88-92% Continue with Advair and Spiriva on discharge Repeat CT chest in 6-8 weeks Taper prednisone over 5 days No further recommendation from pulmonary perspective. We will sign off Please call directly with any questions Case was discussed with Dr. Lopez Please note the above document was generated using voice recognition software. It may contain grammatical, syntax or spelling errors.Any formal questions or concerns about the content, text or information contained within the body of this dictation should be directly addressed to the provider for clarification. Admission and Anticipated Discharge Date Admission Date: June 25, 2022 Subjective Patient seen and examined at bedside. No acute distress, no adverse events overnight. He was saturating 96-97% on 2 L nasal cannula at rest. I went down to 1 L Denied any chest pain. Shortness of breath is improved. Is coughing up clear phlegm. Denies any hemoptysis No headache, no nausea, no vomiting Fair appetite Review of Systems Review of Systems: All systems reviewed & are unremarkable except as noted in Subjective Physical Exam Physical Exam: Constitutional: No acute distress HEENT: EOMI, PERRLA Respiratory system: Decreased air entry bilaterally, no wheeze, no rhonchi, positive crackles bilateral lower lobes CVS: S1-S2 positive, no murmurs or gallops Abdomen: Soft, nontender, nondistended, positive bowel sounds x4 Extremities: +2 pulses bilaterally radialis/ dorsalis pedis, no cyanosis, no edema Neuro: Awake alert oriented x3 Psych: Normal mood and affect G/U: No Ramon Skin: no rashes, warm and dry Lymphatic: no cervical or axillary lymphadenopathy Results & Data Results & Data ([facility]) Vital Signs (Past 12 Hours) Vital Signs Temp Pulse Resp BP Pulse Ox O2 Del Method O2 Flow Rate 06/30/22 06:59 74 18 93 Nasal Cannula 2 06/29/22 22:00 36.9 C 90 20 131/75 92 Nasal Cannula 2.5 Laboratory Results 06/28/22 04:38 06/29/22 08:29 PG Care Time/CCT Total # of Minutes Spent Total Time Spent with Patient: Total time spent is greater than 50% in coordination of care (as documented) at patient's floor/unit and/or counseling patient: Coding Level of Care Code 13444 SUB INP/OBS CARE 2/35MIN Diagnoses Acute hypercapnic respiratory failure J96.02 Sepsis A41.9 CLL (chronic lymphocytic leukemia) C91.10 COPD (chronic obstructive pulmonary disease) J44.9 Acute respiratory failure with hypoxia J96.01
[2022-06-30 08:07] LABS: Hematocrit (blood only) 39.5 % (42.0-52.0); Hemoglobin 12.7 g/dl (14.0-18.0); Mean Corpuscular Hemoglobin 30.7 pg (25.0-34.0); Mean Corpuscular Hgb Conc 32.2 g/dL (32.0-36.0); Mean Corpuscular Volume 95.4 fL (80.0-100.0); Mean Platelet Volume 11.4 fL (9.4-12.4); Nucleated RBC # (auto) 0.04 K/uL (0-0.12); Nucleated RBC % (auto) 0.2 %; Platelet Count 123 K/uL (130-400); RDW Coefficient of Variation 14.4 % (11.5-14.5); RDW Standard Deviation 50.9 fL (36.4-46.3); Red Blood Count 4.14 M/uL (4.70-6.10); White Blood Count 16.98 K/ul (4.8-10.8)
[2022-06-30] MEDS: ENOXAPARIN INJ 40 MG/0.4 ML SYR SQ SCH (08:29)
[2022-06-30] MEDS: DOXYCYCLINE HYCLATE 100 MG CAP PO SCH (08:29)
[2022-06-30 08:30] LABS: Creatinine Clr Calc Pharmacy 102.9 ml/min; Est GFR (African American) 95.7 ml/min; Est GFR (Non-African American) 82.6 ml/min; Potassium 4.3 mmol/L (3.5-5.1)
[2022-06-30] MEDS: TAMSULOSIN HCL 0.4 MG CAP PO SCH (08:30)
[2022-06-30] MEDS: guaiFENesin 600 MG TABCR PO SCH (08:30)
[2022-06-30] MEDS: UMECLIDINIUM BROMIDE 62.5MCG/BLISTER 7 PUFFS/INHALER INH SCH (08:30)
[2022-06-30] MEDS: methylPREDNISolone 40 MG in SYRINGE 0 ML IV SCH (08:30)
[2022-06-30] MEDS: PANTOprazole 40 MG TAB PO SCH (08:30)
[2022-06-30] MEDS: metroNIDAZOLE 500 MG TAB PO SCH ×2 (08:30→13:18)
[2022-06-30 09:00] LABS: Basophilic Stippling 1+; Basophils # (auto) 0.07 K/uL (0-0.2); Basophils % (auto) 0.4 %; Eosinophils # (auto) 0.03 K/uL (0-0.50); Eosinophils % (auto) 0.2 %; Immature Granulocytes # (auto) 0.26 K/uL (0.01-0.20); Immature Granulocytes % (auto) 1.5 %; Lymphocytes % (auto) 76.6 %; Monocytes # (auto) 0.28 K/uL (0.11-0.59); Monocytes % (auto) 1.6 %; Neutrophils # (auto) 3.34 K/uL (1.40-6.50); Neutrophils % (auto) 19.7 %; Polychromasia 1+; Smudge Cells Present
--- NOTE | 2022-06-30 12:51 | Hospitalist Progress Note ---
Date of Service June 30, 2022 Assessment & Plan (1) Acute hypercapnic respiratory failure: Plan: Was brought in with severe respiratory distress and required intubation Noted to have mildly elevated white count of 12.63 without any elevation of procalcitonin no elevation of the temperature Chest CT showed multilobar pneumonia without any pulmonary embolism Has been on mechanical ventilator and is sedated Appreciate yarn weight and strength tester input and recommendation Blood cultures are negative and sputum gram stain pinpoint growth and acid first bacteria and fungal culture pending S/p extubation on 06/27/2022-he has been maintaining normal saturation with oxygen mask around 6 L/min Remains reasonably stable Continue with current inhalers including budesonide and Pulmicort Solu-Medrol dose has been decreased to 40 mg once a day He has been feeling much better and wants to go home Denies any more shortness of breath and the cough seems to be improving Will be discharged home this afternoon Strongly advised to have outpatient polysomnography finish the medications as advised Right upper quadrant pain Benign exam LFTs are normal Awaiting ultrasound-no cholecystitis Denies any more pain (2) COPD (chronic obstructive pulmonary disease): Plan: COPD exacerbation with pneumonia as above We will give doxycycline for a course of 7 days Short taper dose of steroid Antibiotics and steroid has been given (3) Sepsis: Plan: Likely secondary to multilobar pneumonia Blood and sputum cultures are pending Has been on intravenous Invanz, doxycycline and vancomycin for now given the history of MRSA positive in the past-MRSA is negative this time De-escalate antibiotic as per yarn weight and strength tester Still on intravenous Doxy, Invanz and vancomycin We will get doxycycline on discharge otherwise fine Abnormal CT of the chest No change compared with that of 10/29/2020 To have a repeat CAT scan of the chest in 6 6 weeks (4) CHF (congestive heart failure): Plan: History of congestive heart failure with preserved EF BNP has been negative and no signs of fluid overload Chest x-ray is not showing any pulmonary edema but does have infiltration as before Not volume overloaded (5) Multifocal pneumonia: Plan: As above Has been on triple antibiotics including Vanco, ertapenem and Doxy (6) HTN (hypertension): Plan: Blood pressure is maintained right now but the patient required very small dose of pressor resents initially to maintain blood pressure (7) CLL (chronic lymphocytic leukemia): Plan: History of CLL White count is not much elevated 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 Ramirez White count remains mildly elevated at 18.13 (8) Obesity: Plan DVT prophylaxis SCDs and subcu Lovenox CODE STATUS Full Be discharged home this afternoon Admission and Anticipated Discharge Date Admission Date: June 25, 2022 Subjective 06/26/2022 The patient was seen and examined in ICU Remains intubated due to respiratory failure secondary to multilobar pneumonia Has been requiring pressor resents to maintain blood pressure 06/27/2022 The patient was seen and examined in ICU He is extubated and has been saturating on 6 L OxiMax Minimally shortness of breath at rest but denies any chest pain and/or palpitation No abdominal pain nausea or vomiting 06/28/2022 The patient was seen and examined in ICU He is out of bed on a chair and is off pressors Still has moderate shortness of breath at rest and has been requiring 3 L to maintain saturation He will be downgraded to MedSurg unit 06/29/2022 The patient was seen and examined in medical floor He has been feeling much better and he still has moderate shortness of breath at rest No fever and no chills, no chest pain or palpitation 06/30/2022 The patient was seen and examined in medical floor He has been feeling much better She wants to go home desperately Denies any significant symptoms at rest but is still has mild to moderate shortness of breath Review of Systems Review of Systems: All systems reviewed and are unremarkable except as noted below Respiratory: Minimal shortness of breath. Physical Exam Physical Exam: Lying in bed comfortably Constitutional: well developed, well nourished and + obese; not ill appearing ENMT: external ear and nose normal, oropharynx normal Neck: trachea midline, no thyromegaly Respiratory: no respiratory distress Auscultation: + diminished lung sounds and + crackles (Transmitted bronchial sound) Cardiovascular: Rate/Rhythm: regular rate and regular rhythm; not tachycardic Heart Sounds: normal S1 and normal S2; no murmur Extremities: + edema (Trace edema bilaterally) Gastrointestinal (Abdomen): Inspection/Auscultation: normal bowel sounds; abdomen not distended Percussion/Palpation: abdomen soft; abdomen nontender Musculoskeletal: No acute arthritis involving any joint Neurologic: Alert, awake and oriented x3. No focal sensory or motor deficit appreciated Lymphatic: no cervical or axillary lymphadenopathy Results & Data Results & Data ([facility]) Vital Signs (Past 12 Hours) Vital Signs Temp Pulse Resp BP Pulse Ox O2 Del Method O2 Flow Rate 06/30/22 10:37 Nasal Cannula 2.5 06/30/22 08:04 36.6 C 79 18 116/70 92 Nasal Cannula 2 06/30/22 06:59 74 18 93 Nasal Cannula 2 Laboratory Results Short CBC 06/30/22 Range/Units 07:20 WBC 16.98 H (4.8-10.8) K/ul Hgb 12.7 L (14.0-18.0) g/dl Hct 39.5 L (42.0-52.0) % Plt Count 123 L (130-400) K/uL BMP 06/30/22 07:20 Sodium 142 Potassium 4.3 Chloride 101 Carbon Dioxide 41 H* BUN 27 H Creatinine 1.00 Glucose 93 Calcium 9.0 Medications Administered Current Inpatient Medications Acetaminophen (Acetaminophen 325 Mg Tab) 650 mg PO Q4H PRN PRN Reason: Pain or Fever Stop: 07/28/22 22:36 Last Admin: 06/29/22 21:05 Dose: 650 mg Albuterol (Albut/Ipratrop 3mg/0.5mg Neb 3 Ml Vial) 3 ml NEB Q2H PRN; Protocol PRN Reason: Shortness Of Breath Or Wheezing Stop: 07/26/22 00:37 Last Admin: 06/27/22 01:58 Dose: 3 ml Albuterol (Albut/Ipratrop 3mg/0.5mg Neb 3 Ml Vial) 3 ml NEB Q8R [facility]; Protocol Stop: 07/28/22 14:59 Last Admin: 06/30/22 06:58 Dose: Not Given Budesonide (Budesonide 0.5 Mg/2 Ml Vial (Pulmicort)) 0.5 mg NEB BIDR [facility] Stop: 07/27/22 18:59 Last Admin: 06/30/22 06:59 Dose: 0.5 mg Dextrose (Dextrose 50% 50 Ml Syringe) 25 - 50 ml IV UD PRN; Protocol PRN Reason: Hypoglycemia Protocol Stop: 07/27/22 06:28 Doxycycline Hyclate (Doxycycline Hyclate 100 Mg Cap) 100 mg PO BID [facility] Stop: 07/02/22 09:01 Last Admin: 06/30/22 08:29 Dose: 100 mg Enoxaparin Sodium (Enoxaparin Inj 40 Mg/0.4 Ml Syr) 40 mg SQ Q24H [facility] Stop: 07/26/22 08:59 Last Admin: 06/30/22 08:29 Dose: 40 mg Formoterol Fumarate (Formoterol 20 Mcg/2 Ml Vial) 20 mcg NEB BIDR [facility] Stop: 07/27/22 08:59 Last Admin: 06/30/22 06:59 Dose: 20 mcg Glucagon (Glucagon For Inj 1 Mg Vial) 1 mg SQ UD PRN; Protocol PRN Reason: Hypoglycemia Protocol Stop: 07/27/22 06:28 Glucose (Glucose 40% Gel 15 Gm Tube) 15 - 30 gm PO UD PRN; Protocol PRN Reason: Hypoglycemia Protocol Stop: 07/27/22 06:28 Glucose (Glucose 10 Tab/Tube) 4 - 8 tab PO UD PRN; Protocol PRN Reason: Hypoglycemia Treatment Stop: 07/27/22 06:28 Guaifenesin (Guaifenesin 600 Mg Tabcr) 1,200 mg PO Q12 [facility] Stop: 07/29/22 20:59 Last Admin: 06/30/22 08:30 Dose: 1,200 mg Methylprednisolone 40 mg/ (Syringe) 0.64 mls @ 1.5 mls/min IV Q24H [facility] Stop: 07/29/22 08:59 Last Admin: 06/30/22 08:30 Dose: 1.5 mls/min Metronidazole (Metronidazole 500 Mg Tab) 500 mg PO TID [facility] Stop: 07/02/22 13:59 Last Admin: 06/30/22 08:30 Dose: 500 mg Miscellaneous (Carbohydrates For Hypoglycemia ) 15 - 30 gm PO UD PRN PRN Reason: Hypoglycemia Protocol Stop: 07/27/22 06:28 Pantoprazole Sodium (Pantoprazole 40 Mg Tab) 40 mg PO BID [facility] Stop: 07/28/22 20:59 Last Admin: 06/30/22 08:30 Dose: 40 mg Polyethylene Glycol (Polyethylene (Miralax) 17 Gm Pack) 17 gm PO DAILY PRN PRN Reason: Constipation Stop: 07/28/22 22:37 Last Admin: 06/28/22 22:55 Dose: 17 gm Tamsulosin HCl (Tamsulosin Hcl 0.4 Mg Cap) 0.4 mg PO DAILY [facility] Stop: 07/26/22 08:59 Last Admin: 06/30/22 08:30 Dose: 0.4 mg Umeclidinium [place] (Umeclidinium [place] 62.5mcg/Blister 7 Puffs/Inhaler) 1 puffs INH DAILY [facility] Stop: 07/29/22 08:59 Last Admin: 06/30/22 08:30 Dose: 1 puffs
--- NOTE | 2022-06-30 16:51 | Discharge Summary ---
Date of Service June 30, 2022 Admission HPI Per Admitting Provider DICTATED BY:Chester Riddle MD DATE OF ADMISSION: 06/25/2022 CHIEF COMPLAINT: Acute respiratory failure. HISTORY OF PRESENT ILLNESS: A 57-year-old male with past medical history signi ficant for COPD, history of lung nodules, history of chronic right-sided heart failure, hypertension, obesity, hyperlipidemia, history of CLL, selective deficiency of immunoglobulin, ongoing tobacco abuse, presents with respiratory distress, status post intubation. The patient is currently intubated and sedated with Diprivan. It seems the patient was having shortness of breath in the last 4 days and he called his friends and when they came in, he was gasping for breath and called EMS. Per EMS, he seemed to be not speaking in any sentences, seemed to be confused and got intubated in the field and brought in here. Initial ABG showed pH of 7.16, pCO2 of 107 and on repeat ABG, pH of 7.28, pCO2 of 86, 98%. His electrolytes are okay. Lactate is 0.6. Troponin I high sensitivity 25. BNP is 63. Urinalysis +4 protein, +1 ketones. Respiratory BioFire is unremarkable. Ethyl alcohol level ok. CTA chest was done, which shows no PE, emphysema, dense airspace consolidation in the left lower lobe with small focus of cavitation, mild patchy nodular consolidation seen throughout both lungs. These findings likely represent multifocal pneumonia. Mildly enlarged mediastinal and hilar lymph nodes, likely reactive. An 8 mm right lower lobe pulmonary nodule. Currently, the patient's hemodynamics are okay, saturating okay on vent. First the patient was in the [facility] ED on 10/29/2020 with shortness of breath and hemoptysis, that time also he was intubated and the blood counts showed leukocyte, WBCs were 225 with 0 ANC, hemoglobin was 6 with normal platelet counts. At that time, CAT scan showed bilateral ground-glass and consolidative airspace opacities, mostly pronounced in the lungs posteriorly, early pneumonia. Multiple small peripheral enhancing loculated gas and fluid collection within the consolidated left lung posteriorly, likely representing intraparenchymal abscess. Initial thgought was acute leukemia and the patient was transferred to [facility] for further management. At [place] at that time , bronchoscopy showed Streptococcus anginosus and peripheral smear was consistent with CLL. His cultures grew MRSA bacteremia also and he was and extubated to room air and was discharged on Rocephin and Flagyl for necrotizing pneumonia and clindamycin for MRSA bacteremia, followed with hem/onc. He was on ibrutinib for CLL, but it was on hold because of heart failure. As per the cardiology notes, patient was again admitted on 11/13/2021 to 11/19/2021 in [facility] for right-sided heart failure. Initially when he was first admitted in 10/2020, EF was 45%, thought to be sepsis induced, but it was resolved, but now he has right-sided heart failure and he is on Lasix 80 mg b.i.d. Admission Exam Per Admitting Provider GENERAL: The patient is just intubated, on sedation. VITAL SIGNS: Temperature 36.9, pulse 110, respiratory rate 22, blood pressure 118/68, oxygen 97% on mechanical vent 70% FiO2. HEENT: Pupils equal, round and sluggishly react to light. NECK: No obvious neck masses seen. CARDIOVASCULAR: S1 and S2 heard. Regular rate and rhythm. No murmur, no gallop. RESPIRATORY SYSTEM: Normal AP diameter. No accessory muscle use. Mild bilateral rhonchi heard. No obvious wheezing. ABDOMEN: Soft, bowel sounds present, no distention. CENTRAL NERVOUS SYSTEM: Status post intubated and sedated. EXTREMITIES: No edema, no erythema. Principal Diagnosis Acute hypercapnic respiratory failure, COPD exacerbation, multi lobar pneumonia ,abnormal CT of the chest, CLL Discharge Exam Lying in bed comfortably Constitutional well developed, well nourished and + obese; not ill appearing ENMT external ear and nose normal, oropharynx normal Neck trachea midline, no thyromegaly Respiratory no respiratory distress Auscultation: + diminished lung sounds and + crackles (Transmitted bronchial sound) Cardiovascular Rate/Rhythm: regular rate and regular rhythm; not tachycardic Heart Sounds: normal S1 and normal S2; no murmur Extremities: + edema (Trace edema bilaterally) Gastrointestinal (Abdomen) Inspection/Auscultation: normal bowel sounds; abdomen not distended Percussion/Palpation: abdomen soft; abdomen nontender Lymphatic no cervical or axillary lymphadenopathy Discharge Data Allergies Allergy/AdvReac Type Severity Reaction Status Date / Time Penicillins Allergy Intermediate Hives Verified 06/29/22 07:37 bee venom protein (honey bee) Allergy Unknown ON [facility] MED Verified 06/25/22 20:30 LIST Consultations 06/25/22 22:03 ED Decision to Admit Stat 06/26/22 00:38 Consult Microbiology Supervisor Routine Ordered Studies 06/25/22 20:00 CT angio chest PE protocol Stat 06/28/22 08:14 US abdomen [US liver] Routine Hospital Course (1) Acute hypercapnic respiratory failure: Was brought in with severe respiratory distress and required intubation Noted to have mildly elevated white count of 12.63 without any elevation of procalcitonin no elevation of the temperature Chest CT showed multilobar pneumonia without any pulmonary embolism Has been on mechanical ventilator and is sedated Appreciate watermelon inspector input and recommendation Blood cultures are negative and sputum gram stain pinpoint growth and acid first bacteria and fungal culture pending S/p extubation on 06/27/2022-he has been maintaining normal saturation with oxygen mask around 6 L/min Remains reasonably stable Continue with current inhalers including budesonide and Pulmicort Solu-Medrol dose has been decreased to 40 mg once a day He has been feeling much better and wants to go home Denies any more shortness of breath and the cough seems to be improving Will be discharged home this afternoon Strongly advised to have outpatient polysomnography finish the medications as advised Right upper quadrant pain Benign exam LFTs are normal Awaiting ultrasound-no cholecystitis Denies any more pain (2) COPD (chronic obstructive pulmonary disease): COPD exacerbation with pneumonia as above We will give doxycycline for a course of 7 days Short taper dose of steroid Antibiotics and steroid has been given (3) Sepsis: Likely secondary to multilobar pneumonia Blood and sputum cultures are pending Has been on intravenous Invanz, doxycycline and vancomycin for now given the history of MRSA positive in the past-MRSA is negative this time De-escalate antibiotic as per watermelon inspector Still on intravenous Doxy, Invanz and vancomycin We will get doxycycline on discharge otherwise fine Abnormal CT of the chest No change compared with that of 10/29/2020 To have a repeat CAT scan of the chest in 6 6 weeks (4) CHF (congestive heart failure): History of congestive heart failure with preserved EF BNP has been negative and no signs of fluid overload Chest x-ray is not showing any pulmonary edema but does have infiltration as before Not volume overloaded (5) Multifocal pneumonia: As above Has been on triple antibiotics including Vanco, ertapenem and Doxy (6) HTN (hypertension): Blood pressure is maintained right now but the patient required very small dose of pressor resents initially to maintain blood pressure (7) CLL (chronic lymphocytic leukemia): History of CLL White count is not much elevated Follows [facility] glass 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 Ramirez White count remains mildly elevated at 18.13 (8) Obesity: Plan DVT prophylaxis SCDs and subcu Lovenox CODE STATUS Full Be discharged home this afternoon Total Time Total Time Spent Total Time Spent (In Minutes): 35 minutes Discharge Plan Discharge Items Patient Disposition: Home - Self-Care Reason For Visit: RESP DISTRESS Discharge Diagnosis: Acute hypercapnic respiratory failure, COPD exacerbation, multi lobar pneumonia ,abnormal CT of the chest, CLL Condition on Discharge: Fair Activity: Resume your previous activity Non-emergency contact: Primary Care Provider Call non-emergency contact if: you have any medication questions and your symptoms worsen Follow-up/Referrals: Stas Ardon MD [Primary Care Provider] - (Your doctor's office will call you with an appointment within 7 days) Diet: Regular Addtl Attending Provider Instructions: Please take precautions to avoid falls Please finish the course of antibiotic You will need to have an outpatient sleep study done Keep using your oxygen Please keep appointment with your healthcare providers You will need to have a repeat CT scan in 6 to 8 weeks Pending Studies at Discharge: No Stand-Alone Forms: [facility] Medications and DC Order Prescriptions: New doxycycline hyclate 100 mg Capsule 100 mg PO BID 6 Days Qty: 12 0RF metronidazole 500 mg Tablet 500 mg PO TID 6 Days Qty: 18 0RF prednisone 10 mg tablet 10 mg PO DIRECTED Qty: 50 0RF Rx Instructions: 4 p.o. daily for 5 days, 3 p.o. daily for 5 days, 2 p.o. daily for 5 days, 1 p.o. daily for 5 days Continued albuterol sulfate 2.5 mg /3 mL (0.083 %) Solution For Nebulization 2.5 mg INHALATION DIRECTED PRN (Reason: Shortness Of Breath) tamsulosin 0.4 mg capsule 0.4 mg PO DAILY furosemide 80 mg tablet 80 mg PO BID epinephrine 0.3 mg/0.3 mL Auto-Injector 0.3 mg IM DIRECTED PRN (Reason: Allergic Reaction) Spiriva with HandiHaler 18 mcg capsule, w/inhalation device 18 mcg INHALATION DAILY Advair HFA 230-21 mcg/actuation HFA aerosol inhaler 2 inh INHALATION BID Discharge Orders: Discharge Order (Routine); Ordered 06/30/22 Ordered By: Woody Lopez Admission Data Admit Date/Time: 06/25/22 22:51 Attending Provider: Woody Lopez Admit Provider: Chester Riddle Primary Care Provider: Stas Ardon Other Providers: Chester Riddle ; Soham Easley Other Interventions: Discharge Summary Assessment (RN) Last Done: 06/30/22 13:31
[2022-07-01 16:02] LABS: Aspergillus Ag Index 0.11 (<0.50); Aspergillus Antigen, Serum Not Detected (Not Detected)
--- NOTE | 2022-07-02 08:43 | Coding Query ---
CODING QUERY To promote full compliance with coding requirements relating to patient care, provider participation is requested in all cases of special procedures technologist uncertainty. Please assist us with the question(s) below: Coding Question(s): Patient admitted with Sepsis and pneumonia. Bronchoscopy with Left lower lobe brushings were sent to pathology . Please document the type of pneumonia/infectious organism , if known or suspected, that was treated during this inpatient stay. Thanks for your help! Dyllan Fernández [facility] Physician's Response(s): H influenza Pneumonia No Malignancy Principal Diagnosis: "that condition established after study, to be chiefly responsible for occasioning the admission of the patient to the hospital for care." Co-Existing Principal Diagnosis: "when two or more diagnoses equally meet the criteria for principal diagnosis as determined by the circumstances of admission, diagnostic work up, and/or therapy provided, and the Alphabetic Index, Tabular List, or another coding guideline does not provide sequencing direction, any one of the diagnoses may be sequenced first." "When the physician has documented what appears to be a current diagnosis in the body of the record, but has not included the diagnosis in the final diagnostic statement, the physician should be asked whether the diagnosis should be added." (Source Coding Clinic 2 QTR90. p3-4) BRAD
[2022-07-03 23:36] LABS: Fungitell (1-3)-B-D-Glucan <31 pg/mL
== END 2022-06-30 15:23 | disposition home health service (06) | DRG 853 ==
LOC: ED 19:48 → 1E 22:51 → 3N 06-28 21:23

== ENCOUNTER 2023-05-22 15:28 | Inpatient (IN) ==
[~2023-05-22 15:28] MED LIST: PROPOFOL BOLUS FROM BAG IV PRN; RAPID SEQUENCE INDUCTION BAG ONE; STAT IV Infusion **Titration per Protocol STA
[2023-05-22] MEDS ORDERED: propofoL 1,000 MG/100 ML VIAL IV SCH (15:30)
[2023-05-22] MEDS ORDERED: PROPOFOL IV EMULSION 10 MG/ML 100 ML VIAL IV ONE (15:31)
[2023-05-22] MEDS ORDERED: ALBUT/IPRATROP 3MG/0.5MG NEB 3 ML VIAL ONE (15:54)
[2023-05-22] MEDS ORDERED: CEFEPIME 2,000 MG/20 ML VIAL IV STA (15:54)
[2023-05-22 16:01] LABS: Hemoglobin 8.4 g/dl (14.0-18.0); Mean Corpuscular Hemoglobin 31.8 pg (25.0-34.0); Mean Corpuscular Hgb Conc 27.1 g/dL (32.0-36.0); Mean Corpuscular Volume 117.4 fL (80.0-100.0); RDW Coefficient of Variation 16.8 % (11.5-14.5); RDW Standard Deviation 71.5 fL (36.4-46.3); Red Blood Count 2.64 M/uL (4.70-6.10); White Blood Count 181.88 K/ul (4.8-10.8)
--- NOTE | 2023-05-22 16:03 | Emergency Department Note ---
Impression & Plan Respiratory failure, Acute respiratory acidosis, Pneumonia, Chronic lymphocytic leukemia, Anemia, Acute hyperkalemia, Sepsis ED Provider Note NAME: GRACIE ALFONSO AGE: 57 SEX: M : 1965 ARRIVES VIA: Ambulance INFORMANT: EMS ED PROVIDER(S): Hipolito Higgins DO CHIEF COMPLAINT: Difficulty breathing HPI: The patient is a 57-year-old male who presented to the emergency department for an evaluation of difficulty breathing. The patient apparently has been complaining of difficulty breathing and URI symptoms over the course the last few days. His significant other called 911 and the patient arrived via ambulance. I did receive a prehospital notification about the patient who was having very severe shortness of breath and respiratory distress. He was intubated prior to arrival using etomidate. No other history was able to be obtained. ROS: See above HPI for pertinent positives & negatives. A total of 10 systems reviewed and were otherwise negative. PAST MEDICAL HISTORY: See Below PAST SURGICAL HISTORY: See Below FAMILY HISTORY: See Below SOCIAL HISTORY: See Below HOME MEDICATIONS: See Below ALLERGIES: See Below VITALS: See Below PHYSICAL EXAMINATION: GENERAL: The patient is obtunded and not following commands. EYES: The conjunctivae are clear. The pupils are round and reactive. EARS, NOSE, MOUTH AND THROAT: The nose is without any evidence of any deformity. Endotracheal tube was noted. NECK: The neck is nontender and supple. RESPIRATORY: Diminished breath sounds are noted throughout the entire right lung field. There were rales throughout the entire right lung field. Poor air movement was noted. CARDIOVASCULAR: Tachycardic and regular heart sounds were noted to auscultation. There is no definite murmur. GASTROINTESTINAL: The abdomen is soft. Abdomen is nontender. MUSCULOSKELETAL/EXTREMITIES: There is no evidence of gross deformity full range of motion is noted in the hips and shoulders. SKIN: Skin is cold. There is no significant pedal edema NEUROLOGIC: The patient localizes pain. He is moving both extremities symmetrically but no personal movements or following commands was noted. Endotracheal tube was in place. The patient is not able to answer commands. MEDICAL DECISION MAKING: The patient is a 57-year-old male who presented to the emergency department for an evaluation of respiratory distress. The patient was intubated prior to arrival. I did receive a prehospital notification and help the prehospital personnel with RSI. The patient arrived intubated. He was still an extremis. He was treated with IV fluids and empiric IV antibiotics. The patient appears to have anemia. He has a history of CLL and at this time he does have a very elevated white blood cell count. I would wonder if there is an underlying infection. Given the asymmetry of his chest x-ray this does appear to be more consistent with pneumonia. The patient was evaluated by the electrician journeyman wireman. The patient was very difficult to manage on the ventilator. He continued to be in respiratory as well as metabolic acidosis during his time in the emergency department. He was treated with multiple IV fluid boluses. He was also treated with pressors as well as IV bicarbonate. The patient was evaluated by the [facility] group. They have agreed to evaluate the patient in the emergency department. The patient was admitted to the ICU. Triage Nursing notes reviewed. Prior medical records reviewed Vital Signs: reviewed and remarkable for hypotension tachycardia and initial hypoxia. Differential diagnosis: Reactive airway disease, pneumonia, pneumothorax, COPD, CHF, infections, cardiac ischemia, pulmonary embolism, musculoskeletal, gastrointestinal, as well as other pathologies. ER treatment provided: See below Diagnostics interpreted by me: ECG: EKG was obtained in the emergency department. My interpretation is sinus tachycardia at 110 bpm. There is no ectopy. There is no acute ST segment abnormalities noted. Cardiac Monitoring: An order was placed for continuous cardiac monitoring. The monitor shows a rate of 103 bpm with sinus tachycardia. Laboratory studies: As stated above and show below. Imaging studies: See below. Radiographic imaging was reviewed by myself Consultation(s): I discussed this case with Sravani who is on-call for the [facility] hospitalist group. I discussed this case with Dr. Carrington who is on-call for the electrician journeyman wireman group ED COURSE: Procedures: The patient was intubated prior to arrival however the respiratory therapist noted that the alarm would suggest that the patient's tube was not in place. I confirmed this with direct laryngoscopy. The tube was in place however the balloon appeared to be above the cords. The balloon was deflated and the endotracheal tube advanced. Breath sounds were symmetric but diminished significantly on the left. Oxygen saturations remained low. Critical Care: I have personally spent greater than 90 minutes of critical care time in the direct management of this patient. This includes bedside care, interpretation of diagnostic studies, and testing, discussion with consultants, patient, and family members, and other required patient management activities. This 90 minutes is in excess of all separately billable procedures. 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] HTN (hypertension) Lung nodules Chronic right-sided heart failure Tobacco use Chronic respiratory failure COPD (chronic obstructive pulmonary disease) Chronic lymphocytic leukemia Surgical History Hx of appendectomy [place] [facility] [place] History Other Heart disease Lung cancer Social History Smoking Status: Current every day smoker Hx Alcohol Use: Yes Alcohol type: beer Alcohol Intake Frequency: 2-4 x/Month Current Living Situation: Alone Feels Safe at Home: Yes Allergies Allergies Allergy/AdvReac Type Severity Reaction Status Date / Time bee venom protein (honey bee) Allergy Unknown Verified 05/22/23 16:16 Penicillins Allergy Hives Verified 05/22/23 16:16 Home Meds Home Medications Medication Instructions Recorded Confirmed albuterol sulfate 90 mcg/actuation 2 puff inhalation Q4 PRN Shortness 05/22/23 05/22/23 aerosol inhaler Of Breath Or Wheezing epinephrine 0.3 mg/0.3 mL 0.3 mg IM UD PRN bee stings 05/22/23 05/22/23 injection, auto-injector (EpiPen) fluticasone propionate 230 2 puff inhalation AMHS 05/22/23 05/22/23 mcg-salmeterol 21 mcg/actuation HFA inhaler (Advair HFA) furosemide 80 mg tablet 80 mg PO BID 05/22/23 05/22/23 omeprazole 20 mg capsule,delayed 20 mg PO DAILYBB 05/22/23 05/22/23 release tiotropium bromide 18 mcg capsule 1 cap inhalation QAM 05/22/23 05/22/23 with inhalation device (Spiriva with HandiHaler) Results & Data (ED) Vital Signs Vital Signs - 24 hr 05/22/23 14:46 05/22/23 15:39 05/22/23 15:40 Temperature 35.6 C L Temperature Source Ramon Cath ( Temp Sensing) Pulse Rate 111 H 108 H 109 H Pulse Rate from SpO2 Sensor 109 H 110 H Respiratory Rate 45 H Blood Pressure 176/111 H 178/105 H 171/105 H Blood Pressure Mean 132 129 127 Pulse Oximetry 100 88 L 84 L Oxygen Delivery Method Mechanical Vent Mechanical Vent Mechanical Vent Fraction of Inspired Oxygen Sepsis Recent Fever Within 48 Hours No Sepsis New/Unexplained Change in Mental Status Yes Sepsis Action Taken by Nursing No Action Required End-Tidal CO2 05/22/23 15:45 05/22/23 15:46 05/22/23 15:55 Temperature Temperature Source Pulse Rate 114 H 115 H 114 H Pulse Rate from SpO2 Sensor 114 H 115 H 114 H Respiratory Rate 31 H 0 L 28 H Blood Pressure 129/102 H 142/85 H 134/84 Blood Pressure Mean 111 104 100 Pulse Oximetry 99 100 93 Oxygen Delivery Method Mechanical Vent Mechanical Vent Mechanical Vent Fraction of Inspired Oxygen Sepsis Recent Fever Within 48 Hours Sepsis New/Unexplained Change in Mental Status Sepsis Action Taken by Nursing End-Tidal CO2 93 101 05/22/23 15:56 05/22/23 16:00 05/22/23 16:05 Temperature Temperature Source Pulse Rate 108 H 112 H 119 H Pulse Rate from SpO2 Sensor 111 H 119 H Respiratory Rate 32 H 0 L Blood Pressure 130/81 108/72 Blood Pressure Mean 97 84 Pulse Oximetry 88 L 96 Oxygen Delivery Method Mechanical Vent Mechanical Vent Fraction of Inspired Oxygen Sepsis Recent Fever Within 48 Hours Sepsis New/Unexplained Change in Mental Status Sepsis Action Taken by Nursing End-Tidal CO2 101 05/22/23 16:10 05/22/23 16:15 05/22/23 16:50 Temperature Temperature Source Pulse Rate 119 H 117 H 105 H Pulse Rate from SpO2 Sensor 119 H 117 H 105 H Respiratory Rate 30 H 25 H 24 Blood Pressure 114/74 Blood Pressure Mean 87 Pulse Oximetry 99 99 93 Oxygen Delivery Method Mechanical Vent Mechanical Vent Fraction of Inspired Oxygen Sepsis Recent Fever Within 48 Hours Sepsis New/Unexplained Change in Mental Status Sepsis Action Taken by Nursing End-Tidal CO2 76 79 57 05/22/23 16:52 05/22/23 16:55 05/22/23 16:57 Temperature Temperature Source Pulse Rate 105 H 104 H 103 H Pulse Rate from SpO2 Sensor 105 H 104 H 103 H Respiratory Rate 26 H 26 H 24 Blood Pressure 75/51 L 77/53 L 77/50 L Blood Pressure Mean 59 61 59 Pulse Oximetry 95 96 96 Oxygen Delivery Method Fraction of Inspired Oxygen Sepsis Recent Fever Within 48 Hours Sepsis New/Unexplained Change in Mental Status Sepsis Action Taken by Nursing End-Tidal CO2 57 57 55 05/22/23 16:59 05/22/23 17:00 05/22/23 17:03 Temperature Temperature Source Pulse Rate 113 H 101 H 107 H Pulse Rate from SpO2 Sensor 102 H 108 H Respiratory Rate 24 24 8 L Blood Pressure 76/52 L 80/53 L Blood Pressure Mean 60 62 Pulse Oximetry 96 96 95 Oxygen Delivery Method Fraction of Inspired Oxygen 50 Sepsis Recent Fever Within 48 Hours Sepsis New/Unexplained Change in Mental Status Sepsis Action Taken by Nursing End-Tidal CO2 57 55 41 05/22/23 17:05 05/22/23 17:07 05/22/23 17:10 Temperature Temperature Source Pulse Rate 113 H 112 H 106 H Pulse Rate from SpO2 Sensor 114 H 111 H 106 H Respiratory Rate 18 26 H 26 H Blood Pressure 95/61 L 91/61 L 86/59 L Blood Pressure Mean 72 71 68 Pulse Oximetry 95 99 100 Oxygen Delivery Method Fraction of Inspired Oxygen Sepsis Recent Fever Within 48 Hours Sepsis New/Unexplained Change in Mental Status Sepsis Action Taken by Nursing End-Tidal CO2 69 68 63 05/22/23 17:12 05/22/23 17:15 05/22/23 17:18 Temperature Temperature Source Pulse Rate 104 H 112 H 113 H Pulse Rate from SpO2 Sensor 104 H 111 H 113 H Respiratory Rate 26 H 24 26 H Blood Pressure 90/67 L 97/74 L 100/71 Blood Pressure Mean 74 81 80 Pulse Oximetry 100 100 98 Oxygen Delivery Method Fraction of Inspired Oxygen Sepsis Recent Fever Within 48 Hours Sepsis New/Unexplained Change in Mental Status Sepsis Action Taken by Nursing End-Tidal CO2 60 66 66 05/22/23 17:21 05/22/23 17:22 05/22/23 17:25 Temperature Temperature Source Pulse Rate 112 H 112 H 112 H Pulse Rate from SpO2 Sensor 112 H 112 H 113 H Respiratory Rate 24 24 24 Blood Pressure 99/67 L 102/80 Blood Pressure Mean 77 87 Pulse Oximetry 99 100 99 Oxygen Delivery Method Fraction of Inspired Oxygen Sepsis Recent Fever Within 48 Hours Sepsis New/Unexplained Change in Mental Status Sepsis Action Taken by Nursing End-Tidal CO2 63 66 59 05/22/23 17:30 05/22/23 17:31 05/22/23 17:32 Temperature Temperature Source Pulse Rate 106 H 105 H 102 H Pulse Rate from SpO2 Sensor 107 H 105 H 102 H Respiratory Rate 26 H 24 24 Blood Pressure 85/61 L 83/56 L Blood Pressure Mean 69 65 Pulse Oximetry 97 99 100 Oxygen Delivery Method Fraction of Inspired Oxygen Sepsis Recent Fever Within 48 Hours Sepsis New/Unexplained Change in Mental Status Sepsis Action Taken by Nursing End-Tidal CO2 66 65 63 05/22/23 17:35 05/22/23 17:38 05/22/23 17:42 Temperature Temperature Source Pulse Rate 101 H 96 H 100 H Pulse Rate from SpO2 Sensor 97 H 101 H Respiratory Rate 24 24 26 H Blood Pressure 78/50 L 76/50 L 89/69 L Blood Pressure Mean 59 58 75 Pulse Oximetry 100 85 L Oxygen Delivery Method Fraction of Inspired Oxygen Sepsis Recent Fever Within 48 Hours Sepsis New/Unexplained Change in Mental Status Sepsis Action Taken by Nursing End-Tidal CO2 61 59 62 05/22/23 17:45 05/22/23 17:49 05/22/23 17:52 Temperature Temperature Source Pulse Rate 102 H 99 H 95 H Pulse Rate from SpO2 Sensor 102 H 97 H Respiratory Rate 26 H 24 24 Blood Pressure 92/58 L 87/57 L Blood Pressure Mean 69 67 Pulse Oximetry 71 L 99 Oxygen Delivery Method Fraction of Inspired Oxygen Sepsis Recent Fever Within 48 Hours Sepsis New/Unexplained Change in Mental Status Sepsis Action Taken by Nursing End-Tidal CO2 64 64 64 05/22/23 18:19 05/22/23 18:20 05/22/23 18:22 Temperature 35.2 C L 35.2 C L 35.2 C L Temperature Source Pulse Rate 103 H Pulse Rate from SpO2 Sensor Respiratory Rate 25 H 24 24 Blood Pressure 127/108 H 79/62 L Blood Pressure Mean 114 67 Pulse Oximetry Oxygen Delivery Method Fraction of Inspired Oxygen Sepsis Recent Fever Within 48 Hours Sepsis New/Unexplained Change in Mental Status Sepsis Action Taken by Nursing End-Tidal CO2 74 73 72 Home Medications Current Medication List: was personally reviewed by me Laboratory Data Attestation: I reviewed the patient's lab results. 05/22/23 15:42 05/22/23 15:42 Lab Results 05/22/23 05/22/23 05/22/23 Range/Units 15:42 15:56 17:27 WBC 181.88 H* (4.8-10.8) K/ul RBC 2.64 L (4.70-6.10) M/uL Hgb 8.4 L (14.0-18.0) g/dl POC Hgb (14.0-18.0) g/dl Hct 31.0 L (42.0-52.0) % POC Hct (42-52) % MCV 117.4 H (80.0-100.0) fL MCH 31.8 (25.0-34.0) pg MCHC 27.1 L (32.0-36.0) g/dL RDW Std Deviation 71.5 H (36.4-46.3) fL RDW Coeff of Argenis 16.8 H (11.5-14.5) % Plt Count 68 L (130-400) K/uL MPV 13.1 H (9.4-12.4) fL Immature Gran % (Auto) 0.2 % Neut % (Auto) 0.8 % Lymph % (Auto) 91.0 % [place] % (Auto) 7.8 % Eos % (Auto) 0.1 % Baso % (Auto) 0.1 % Neut # (Auto) 1.48 (1.40-6.50) K/uL Lymph # (Auto) 165.59 H (1.20-3.40) K/uL [place] # (Auto) 14.22 H (0.11-0.59) K/uL Eos # (Auto) 0.14 (0.00-0.50) K/uL Baso # (Auto) 0.17 (0.00-0.20) K/uL Immature Gran # (Auto) 0.28 H (0.01-0.20) K/uL Absolute Nucleated RBC 0.11 (0.00-0.12) K/uL Nucleated RBC % (auto) 0.1 % Platelet Estimate Decreased L (Normal) Hypochromasia Present Macrocytosis Present Stomatocytes 2+ PT 11.6 (9.0-12.0) Seconds INR 1.1 (0.9-1.1) APTT 47 H (21-31) Seconds PTT Ratio 1.7 POC pH (7.35-7.45) POC pCO2 (35-46) mmHg POC pO2 (80-95) mmHg POC HCO3 (19-24) isaiah/L POC Total CO2 (24-31) mmol/L POC Base Excess (-9-1.8) isaiah/L ABG pH Cancelled ABG pCO2 Cancelled ABG pO2 Cancelled ABG HCO3 Cancelled POC ABG O2 Sat (90-95) % ABG O2 Saturation Cancelled ABG Base Excess Cancelled Sim Test Cancelled VBG pH 7.00 L (7.36-7.41) VBG pCO2 > 125 H (38-50) mmHg VBG pO2 73 mmHg VBG HCO3 TNP VBG O2 Saturation 92.0 % VBG Base Excess TNP Barometric Pressure Cancelled Oxygen Given Cancelled POC Sodium (135-144) mmol/L Sodium 138 (136-145) mmol/L POC Potassium (3.3-5.0) mmol/L Potassium 5.8 H (3.5-5.1) mmol/L Chloride 96 L (98-107) mmol/L Carbon Dioxide 43 H* (21-32) mmol/L Anion Gap -1 L (3-11) BUN 16 (6-23) mg/dl Creatinine 1.05 (0.6-1.4) mg/dl Est Cr Clr Drug Dosing 96.2 ml/min Est GFR ( Amer) 90.3 ml/min Est GFR (Non-Af Amer) 77.9 ml/min BUN/Creatinine Ratio 15.2 (10-20) Glucose 300 H (70-99(Fasting)) mg/dl Lactate 0.6 (0.4-2.0) mmol/L Calcium 8.3 L (8.6-10.3) mg/dl Magnesium 2.2 (1.7-2.4) mg/dl Total Bilirubin 0.6 (0.2-1.0) mg/dl Direct Bilirubin 0.1 (0-0.2) mg/dl AST 20 (13-39) U/L ALT 16 (7-52) U/L Alkaline Phosphatase 126 H (34-104) U/L Troponin I High Sens 13.6 (0-20) pg/ml B-Natriuretic Peptide 76 (0-100) pg/ml Total Protein 6.9 (6.0-8.3) gm/dl Albumin 4.3 (3.4-5.0) gm/dl Procalcitonin 0.12 (0-0.5) ng/ml TSH 1.837 (0.300-4.500) uIu/ml Urine Color Urine Appearance (Clear) Urine pH (4.5-7.5) Ur Specific [place] (1.000-1.030) Urine Protein (Negative) Urine Glucose (UA) (Negative) Urine Ketones (Negative) Urine Blood (Negative) Urine Nitrite (Negative) Urine Bilirubin (Negative) Urine Urobilinogen (Negative) Ur Leukocyte Esterase (Negative) Urine WBC (Auto) (0-5) /hpf Urine RBC (Auto) (0-4) /hpf U Hyaline Cast (Auto) (0-5) /lpf U Epithel Cells (Auto) (0-5) /lpf Urine Bacteria (Auto) (Negative) Urine Opiates Screen (Neg) Ur Methadone, Qual (Neg) Urine Barbiturates (Neg) Ur Phencyclidine (PCP) (Neg) U Amphetamin/Meth Scrn (Neg) MDMA (Ecstasy) Screen (Neg) U Benzodiazepines Scrn (Neg) Ur Cocaine Metabolite (Neg) U Marijuana (THC) Screen (Neg) Ethyl Alcohol mg/dL (<10.0) mg/dl Adenovirus (PCR) (NotDetected) B. pertussis DNA (PCR) (NotDetected) B.parapertussis DNA PCR (NotDetected) C. pneumoniae DNA (PCR) (NotDetected) Coronavirus OC43 (PCR) (NotDetected) Coronavirus HKU1 (PCR) (NotDetected) Coronavirus 229E (PCR) (NotDetected) SARS-CoV-2 (PCR) (NotDetected) Coronavirus NL63 (PCR) (NotDetected) Human Metapneumovir PCR (NotDetected) Influenza Type A (PCR) (NotDetected) Influenza Type B (PCR) (NotDetected) M. pneumoniae (PCR) (NotDetected) Parainfluenza 1 (PCR) (NotDetected) Parainfluenza 2 (PCR) (NotDetected) Parainfluenza 3 (PCR) (NotDetected) Parainfluenza 4 (PCR) (NotDetected) RSV (PCR) (NotDetected) Entero/Rhino (PCR) (NotDetected) 05/22/23 05/22/23 05/22/23 Range/Units 17:49 18:36 Unknown WBC (4.8-10.8) K/ul RBC (4.70-6.10) M/uL Hgb (14.0-18.0) g/dl POC Hgb 7.8 L (14.0-18.0) g/dl Hct (42.0-52.0) % POC Hct 23 L (42-52) % MCV (80.0-100.0) fL MCH (25.0-34.0) pg MCHC (32.0-36.0) g/dL RDW Std Deviation (36.4-46.3) fL RDW Coeff of Argenis (11.5-14.5) % Plt Count (130-400) K/uL MPV (9.4-12.4) fL Immature Gran % (Auto) % Neut % (Auto) % Lymph % (Auto) % [place] % (Auto) % Eos % (Auto) % Baso % (Auto) % Neut # (Auto) (1.40-6.50) K/uL Lymph # (Auto) (1.20-3.40) K/uL [place] # (Auto) (0.11-0.59) K/uL Eos # (Auto) (0.00-0.50) K/uL Baso # (Auto) (0.00-0.20) K/uL Immature Gran # (Auto) (0.01-0.20) K/uL Absolute Nucleated RBC (0.00-0.12) K/uL Nucleated RBC % (auto) % Platelet Estimate (Normal) Hypochromasia Macrocytosis Stomatocytes PT (9.0-12.0) Seconds INR (0.9-1.1) APTT (21-31) Seconds PTT Ratio POC pH 7.08 L* (7.35-7.45) POC pCO2 > 115 H (35-46) mmHg POC pO2 < 32 L (80-95) mmHg POC HCO3 37 H (19-24) isaiah/L POC Total CO2 > 40 H* (24-31) mmol/L POC Base Excess 7.0 H (-9-1.8) isaiah/L ABG pH ABG pCO2 ABG pO2 ABG HCO3 POC ABG O2 Sat 32.0 L (90-95) % ABG O2 Saturation ABG Base Excess Sim Test VBG pH (7.36-7.41) VBG pCO2 (38-50) mmHg VBG pO2 mmHg VBG HCO3 VBG O2 Saturation % VBG Base Excess Barometric Pressure Oxygen Given POC Sodium 138 (135-144) mmol/L Sodium (136-145) mmol/L POC Potassium 4.7 (3.3-5.0) mmol/L Potassium (3.5-5.1) mmol/L Chloride (98-107) mmol/L Carbon Dioxide (21-32) mmol/L Anion Gap (3-11) BUN (6-23) mg/dl Creatinine (0.6-1.4) mg/dl Est Cr Clr Drug Dosing ml/min Est GFR ( Amer) ml/min Est GFR (Non-Af Amer) ml/min BUN/Creatinine Ratio (10-20) Glucose (70-99(Fasting)) mg/dl Lactate (0.4-2.0) mmol/L Calcium (8.6-10.3) mg/dl Magnesium (1.7-2.4) mg/dl Total Bilirubin (0.2-1.0) mg/dl Direct Bilirubin (0-0.2) mg/dl AST (13-39) U/L ALT (7-52) U/L Alkaline Phosphatase (34-104) U/L Troponin I High Sens (0-20) pg/ml B-Natriuretic Peptide (0-100) pg/ml Total Protein (6.0-8.3) gm/dl Albumin (3.4-5.0) gm/dl Procalcitonin (0-0.5) ng/ml TSH (0.300-4.500) uIu/ml Urine Color Dark Yellow Urine Appearance Clear (Clear) Urine pH 5.0 (4.5-7.5) Ur Specific [place] 1.020 (1.000-1.030) Urine Protein 2+ H (Negative) Urine Glucose (UA) Negative (Negative) Urine Ketones Negative (Negative) Urine Blood Negative (Negative) Urine Nitrite Negative (Negative) Urine Bilirubin Negative (Negative) Urine Urobilinogen Negative (Negative) Ur Leukocyte Esterase Negative (Negative) Urine WBC (Auto) 0 (0-5) /hpf Urine RBC (Auto) 0-4 (0-4) /hpf U Hyaline Cast (Auto) 1-5 (0-5) /lpf U Epithel Cells (Auto) 5-10 H (0-5) /lpf Urine Bacteria (Auto) Negative (Negative) Urine Opiates Screen Neg (Neg) Ur Methadone, Qual Neg (Neg) Urine Barbiturates Neg (Neg) Ur Phencyclidine (PCP) Neg (Neg) U Amphetamin/Meth Scrn Neg (Neg) MDMA (Ecstasy) Screen Neg (Neg) U Benzodiazepines Scrn Neg (Neg) Ur Cocaine Metabolite Neg (Neg) U Marijuana (THC) Screen Pos H (Neg) Ethyl Alcohol mg/dL < 10.0 (<10.0) mg/dl Adenovirus (PCR) Not Detected (NotDetected) B. pertussis DNA (PCR) Not Detected (NotDetected) B.parapertussis DNA PCR Not Detected (NotDetected) C. pneumoniae DNA (PCR) Not Detected (NotDetected) Coronavirus OC43 (PCR) Not Detected (NotDetected) Coronavirus HKU1 (PCR) Not Detected (NotDetected) Coronavirus 229E (PCR) Not Detected (NotDetected) SARS-CoV-2 (PCR) Not Detected (NotDetected) Coronavirus NL63 (PCR) Not Detected (NotDetected) Human Metapneumovir PCR Not Detected (NotDetected) Influenza Type A (PCR) Not Detected (NotDetected) Influenza Type B (PCR) Not Detected (NotDetected) M. pneumoniae (PCR) Not Detected (NotDetected) Parainfluenza 1 (PCR) Not Detected (NotDetected) Parainfluenza 2 (PCR) Not Detected (NotDetected) Parainfluenza 3 (PCR) Not Detected (NotDetected) Parainfluenza 4 (PCR) Not Detected (NotDetected) RSV (PCR) Not Detected (NotDetected) Entero/Rhino (PCR) DETECTED A* (NotDetected) Administered Medications Propofol (Diprivan) 1,000 mg in 100 mls @ 6.72 mls/hr IV .[id number] [facility]; Protocol Stop: 05/25/23 15:29 Last Titration: 05/22/23 19:08 Dose: 10 mcg/kg/min, 6.7 mls/hr Documented By: Admin: 05/22/23 15:41 Dose: 20 mcg/kg/min, 13.4 mls/hr Documented By: PAOLA Co-signed By: GENNA Vancomycin HCl 2,250 mg/ (Sodium Chloride) 545 mls @ 200 mls/hr IV NOW ONE Stop: 05/22/23 19:32 Last Admin: 05/22/23 18:40 Dose: 200 mls/hr Documented By: PAOLA Methylprednisolone 40 mg/ (Syringe) 0.64 mls @ 1.5 mls/min IV Q8H SAM Stop: 06/21/23 17:59 Last Admin: 05/22/23 17:53 Dose: 1.5 mls/min Documented By: PAOLA Discontinued Medications Albuterol (Albut/Ipratrop 3mg/0.5mg Neb 3 Ml Vial) Confirm Administered Dose 12 ml .ROUTE .STK-MED ONE Stop: 05/22/23 15:55 Last Admin: 05/22/23 16:56 Dose: Not Given Documented By: ROSAURA Fentanyl Citrate (Fentanyl Citrate Pf 100 Mcg/2 Ml Vial) Confirm Administered Dose 100 mcg .ROUTE .STK-MED ONE Stop: 05/22/23 18:29 Last Admin: 05/22/23 18:40 Dose: 100 mcg Documented By: PAOLA Cefepime HCl (Maxipime) 2,000 mg in 20 mls @ 5 mls/min IV NOW STA; Protocol Stop: 05/22/23 15:57 Last Admin: 05/22/23 16:06 Dose: 5 mls/min Documented By: PAOLA Sodium Chloride (Nss) 1,000 mls @ 999 mls/hr IV .Q1H1M ONE Stop: 05/22/23 17:40 Last Admin: 05/22/23 17:12 Dose: 999 mls/hr Documented By: Infusion: 05/22/23 17:12 Dose: Infused Documented By: Admin: 05/22/23 16:48 Dose: 999 mls/hr Documented By: PAOLA Sodium Chloride (Nss) 1,000 mls @ 999 mls/hr IV .Q1H1M ONE Stop: 05/22/23 17:48 Last Admin: 05/22/23 17:50 Dose: 999 mls/hr Documented By: PAOLA Lactated Ringer's (Lr) 1,000 mls @ 999 mls/hr IV .Q1H1M ONE Stop: 05/22/23 18:45 Last Admin: 05/22/23 17:50 Dose: 999 mls/hr Documented By: ARS Methylprednisolone (Methylprednisolone 40 Mg/Ml Vial) Confirm Administered Dose 40 mg .ROUTE .STK-MED ONE Stop: 05/22/23 17:52 Last Admin: 05/22/23 18:35 Dose: Not Given Documented By: ARS Miscellaneous (Rapid Sequence Induction Bag) Confirm Administered Dose 1 each N/A .STK-MED ONE Stop: 05/22/23 15:18 Last Admin: 05/22/23 16:07 Dose: Not Given Documented By: PAOLA Miscellaneous (Stat Iv Infusion Titration Per Protocol) 1 each N/A NOW STA Stop: 05/22/23 15:28 Last Admin: 05/22/23 18:40 Dose: Not Given Documented By: PAOLA Propofol (Propofol Iv Emulsion 10 Mg/Ml 100 Ml Vial) Confirm Administered Dose 1,000 mg IV .STK-MED ONE Stop: 05/22/23 15:32 Last Admin: 05/22/23 16:07 Dose: Not Given Documented By: PAOLA Sodium Bicarbonate (Sodium Bicarb 8.4% Inj 50 Meq/50 Ml Syr) Confirm Administered Dose 50 meq IV .STK-MED ONE Stop: 05/22/23 17:09 Last Admin: 05/22/23 17:11 Dose: Not Given Documented By: PAOLA Sodium Bicarbonate (Sodium Bicarbonate 8.4% Inj 50 Meq/50 Ml Vial) 25 meq IV NOW ONE Stop: 05/22/23 17:16 Last Admin: 05/22/23 17:12 Dose: 25 meq Documented By: PAOLA Imaging Data Attestation: I personally reviewed and interpreted this imaging study as follows: My Impression: 1 view chest x-ray was obtained in the emergency department. My interpretation is sufficient placement of the endotracheal tube. Complete whiteout of the right lung field. This could be consistent with pneumonia or asymmetric pulmonary edema, final report pending CT of the brain was obtained in the emergency department. My interpretation is no intracranial hemorrhage or mass effect, final report below Radiologist's Impression: Chest X-Ray 05/22/23 15:27 SINGLE VIEW CHEST CLINICAL HISTORY: Sepsis. Respiratory failure. FINDINGS: 2 AP, portable, supine chest radiographs are obtained. No prior studies are available for comparison at the time of dictation. The examination is degraded by portable technique, apical lordotic positioning, and patient rotation. An endotracheal tube has been placed. The tip projects approximately 7 cm above the melani. The heart is enlarged. There is pulmonary vascular congestion. There are multifocal bilateral airspace opacities, asymmetrically greater on the right. No large pleural effusion or pneumothorax is seen. The bony thorax is grossly intact. IMPRESSION: 1. An endotracheal tube has been placed as above. 2. Cardiomegaly with evidence of congestive failure. 3. There are asymmetric bilateral airspace opacities, right greater than left. This could represent pulmonary edema, and/or multifocal pneumonia. Clinical correlation will be essential and radiographic follow-up to resolution is recommended.. ACT 112: Negative or not required by law. Electronically signed by: Leo Marcial M.D. 05/22/2023 4:[address] 05/22/23 17:02 CT SCAN OF THE BRAIN WITHOUT IV CONTRAST CLINICAL HISTORY: Change in mental status. COMPARISON STUDY: No priors. TECHNIQUE: Unenhanced axial CT scan of the brain is performed from the vertex to the skull base. A dose lowering technique was utilized adhering to the principles of ALARA. FINDINGS: Endotracheal and enteric tubes are noted on the heel reducer tomogram. Brain parenchyma: The brain parenchyma is normal in appearance. There is no hemorrhage, mass effect, or evidence of acute territorial ischemia by CT criteria. Aviles-white matter differentiation is preserved. No extra-axial fluid collection is seen. Ventricles, sulci, cisterns: Normal in configuration. Intracranial vasculature: There is atherosclerotic calcification of the cavernous carotid and vertebral arteries. Calvarium: Unremarkable. Sinuses and mastoids: There is subtotal opacification of the ethmoid sinuses. Moderate mucosal thickening is noted within the sphenoid and maxillary sinuses. Fluid fills the nasopharynx. The mastoid air cells are well pneumatized. Orbits: The bony orbits are grossly intact. IMPRESSION: There is no hemorrhage, mass effect, or evidence of acute territorial ischemia by CT criteria. ACT 112: Negative or not required by law. Electronically signed by: Leo Marcial M.D. 05/22/2023 6:[address] 05/22/23 17:35 CT SCAN OF THE CHEST WITHOUT IV CONTRAST CLINICAL HISTORY: Respiratory failure. COMPARISON STUDY: Chest x-ray dated 05/22/2023. TECHNIQUE: CT scan of the thorax was performed from the thoracic inlet to the upper abdomen. Images are reviewed in the axial, sagittal, and coronal planes. IV contrast was not administered for this examination as per the referring clinician. A dose lowering technique was utilized adhering to the principles of ALARA. CT DOSE: 1739.33 mGy.cm FINDINGS: Thyroid: Imaged portions of the thyroid gland are normal in size and attenuation. Thoracic aorta: There is atherosclerotic calcification of the thoracic aorta, which is normal in caliber and demonstrates bovine variant arch anatomy. Heart: The heart is enlarged noting trace pericardial effusion. The coronary arteries are densely calcified. There is diminished attenuation of the cardiac blood pool as compared to the myocardium suggesting anemia. Lungs and pleural spaces: An endotracheal term terminates above the melani. There are small right and trace left pleural effusions. Intralobular septal thickening is seen throughout both lungs. Multifocal patchy airspace consolidation and patchy nodular opacities are seen throughout both lungs, asymmetrically greater on the right. There are scattered calcified granulomas. Secretions are noted in the trachea. There is diffuse peribronchial thickening. Lower neck: An enlarged left cervical lymph node is partially visualized. This measures 13 mm in short axis. Mediastinum: There is mediastinal lymphadenopathy. Paratracheal nodes measure up to 1.2 cm short axis. Prevascular nodes measure up to 1.1 cm short axis, and a precarinal node measures up to 1.6 cm short axis. Michelle: There is likely hilar lymphadenopathy. This is not well assessed without IV contrast. Axillae: There is no axillary lymphadenopathy. Upper abdomen: An enteric tube is in place. This extends below the diaphragm and stomach. The spleen is markedly enlarged, measuring at least 19 cm in length. The liver also appears enlarged. There are mildly enlarged upper abdominal lymph nodes. A gastrohepatic node measures up to 11 mm in short axis. Skeletal structures: No lytic or blastic bony lesions are seen. IMPRESSION: 1. Endotracheal and enteric tubes are in place. 2. Cardiomegaly with evidence of congestive failure. 3. Small right and trace left pleural effusions. 4. Multifocal patchy airspace consolidation is seen throughout both lungs, and there are also multifocal patchy nodular airspace opacities. This is asymmetrically greater on the right, and the appearance favors a multifocal pneumonia. Clinical correlation will be essential. A follow-up chest CT in 3-4 months time is recommended to document resolution and reassess the underlying lung parenchyma/pulmonary nodules. 5. There is marked splenomegaly, as well as upper abdominal, mediastinal, and sternoclavicular lymphadenopathy. There is also likely hilar lymphadenopathy. These findings are nonspecific but could be seen with a lymphoproliferative disorder such as lymphoma. 6. The liver also appears enlarged. 7. Additional findings as above. ACT 112: Positive. There are findings on this exam that require communication between the performing entity and the patient following Patient Test Result Information Act ([place] Act 112) guidelines. Electronically signed by: Leo Marcial M.D. 05/22/2023 7:15 PM Discharge Plan Visit Data Chief Complaint: Respiratory Distress Stated Complaint: RESPIRATORY DISTRESS ED Provider: Hipolito Higgins Discharge Problem: Respiratory failure, Acute respiratory acidosis, Pneumonia, Chronic lymphocytic leukemia, Anemia, Acute hyperkalemia, Sepsis Patient Disposition: Admitted As Inpatient Forms Stand Alone Forms: [facility] Prescriptions Prescriptions: No Action omeprazole 20 mg capsule,delayed release(DR/EC) 20 mg PO DAILYBB fluticasone propion-salmeterol [Advair HFA] 230-21 mcg/actuation HFA aerosol inhaler 2 puff INHALATION AMHS albuterol sulfate 90 mcg/actuation HFA aerosol inhaler 2 puff INHALATION Q4 PRN (Reason: Shortness Of Breath Or Wheezing) tiotropium bromide [Spiriva with HandiHaler] 18 mcg capsule, w/inhalation device 1 cap INHALATION QAM epinephrine [EpiPen] 0.3 mg/0.3 mL Auto-Injector 0.3 mg IM UD PRN (Reason: bee stings) furosemide 80 mg Tablet 80 mg PO BID Referrals Referrals: PCP,NO [Physician] - Discharge Problem: Pneumonia Qualifiers: Pneumonia type: due to unspecified organism Laterality: right Lung location: u nspecified part of lung Qualified Code(s): J18.9 - Pneumonia, unspecified organism Anemia Qualifiers: Anemia type: unspecified type Qualified Code(s): D64.9 - Anemia, unspecified Sepsis Qualifiers: Sepsis type: sepsis due to unspecified organism Sepsis acute organ dysfunction status: with acute organ dysfunction Severe sepsis acute organ dysfunction type: acute respiratory failure Acute respiratory failure type: with hypoxia Severe sepsis shock status: with septic shock Qualified Code(s): A41.9 - Sepsis, unspecified organism
[2023-05-22 16:08] LABS: PCO2 VBG > 125 mmHg (38-50); PO2 VBG 73 mmHg
--- NOTE | 2023-05-22 16:11 | XRay Report ---
SINGLE VIEW CHEST CLINICAL HISTORY: Sepsis. Respiratory failure. FINDINGS: 2 AP, portable, supine chest radiographs are obtained. No prior studies are available for c omparison at the time of dictation. The examination is degraded by portable technique, apical lordoti c positioning, and patient rotation. An endotracheal tube has been placed. The tip projects approxima tely 7 cm above the melani. The heart is enlarged. There is pulmonary vascular congestion. There are multifocal bilateral airspace opacities, asymmetrically greater on the right. No large pleural effusi on or pneumothorax is seen. The bony thorax is grossly intact. IMPRESSION: 1. An endotracheal tube has been placed as above. 2. Cardiomegaly with evidence of congestive failure. 3. There are asymmetric bilateral airspace opacities, right greater than left. This could represent p ulmonary edema, and/or multifocal pneumonia. Clinical correlation will be essential and radiographic follow-up to resolution is recommended.. ACT 112: Negative or not required by law. Electronically signed by: Leo Marcial M.D. 05/22/2023 4:10 PM
[2023-05-22 16:12] LABS: Appearance Urine Clear (Clear); Bacteria Urine Automated Negative (Negative); Bilirubin Urine Negative (Negative); Blood Urine Negative (Negative); Color Urine Dark Yellow; Glucose Urine UA Negative (Negative); Ketones Urine Negative (Negative); Leukocyte Esterase Urine Negative (Negative); Nitrite Urine Negative (Negative); Protein Urine 2+ (Negative); RBC Urine Automated 0-4 /hpf (0-4); Urobilinogen Urine Negative (Negative); WBC Urine Automated 0 /hpf (0-5)
[2023-05-22 16:35] LABS: Mean Platelet Volume 13.1 fL (9.4-12.4); Nucleated RBC # (auto) 0.11 K/uL (0.00-0.12); Nucleated RBC % (auto) 0.1 %; Platelet Count 68 K/uL (130-400)
[2023-05-22 16:37] LABS: Basophils # (auto) 0.17 K/uL (0.00-0.20); Basophils % (auto) 0.1 %; Eosinophils # (auto) 0.14 K/uL (0.00-0.50); Eosinophils % (auto) 0.1 %; Hypochromasia Present; INR 1.1 (0.9-1.1); Immature Granulocytes # (auto) 0.28 K/uL (0.01-0.20); Immature Granulocytes % (auto) 0.2 %; Lymphocytes # (auto) 165.59 K/uL (1.20-3.40); Macrocytosis Present; Monocytes # (auto) 14.22 K/uL (0.11-0.59); Monocytes % (auto) 7.8 %; Neutrophils # (auto) 1.48 K/uL (1.40-6.50); Neutrophils % (auto) 0.8 %; Partial Thromboplastin Ratio 1.7; Partial Thromboplastin Time 47 Seconds (21-31); Platelet Estimate Decreased (Normal); Prothrombin Time 11.6 Seconds (9.0-12.0); Stomatocytes 2+
[2023-05-22 16:40] LABS: Albumin Level 4.3 gm/dl (3.4-5.0); BUN Creatinine Ratio 15.2 (10-20); Bilirubin Direct 0.1 mg/dl (0-0.2); Bilirubin,Total 0.6 mg/dl (0.2-1.0); Calcium 8.3 mg/dl (8.6-10.3); Creatinine Clr Calc Pharmacy 96.2 ml/min; Est GFR (African American) 90.3 ml/min; Est GFR (Non-African American) 77.9 ml/min; Magnesium 2.2 mg/dl (1.7-2.4); Potassium 5.8 mmol/L (3.5-5.1); Total Protein 6.9 gm/dl (6.0-8.3); Troponin I High Sensitivity 13.6 pg/ml (0-20)
[2023-05-22] MEDS ORDERED: SODIUM CHLORIDE 0.9% 1,000 ML IV ONE (16:48)
[2023-05-22] MEDS: SODIUM CHLORIDE 0.9% 1,000 ML IV ONE ×2 (16:48→17:12)
[2023-05-22] MEDS ORDERED: VANCOMYCIN HCL 2,250 MG in SODIUM CHLORIDE 0.9% 500 ML IV ONE (16:49)
[2023-05-22] MEDS ORDERED: VANCOMYCIN CONSULT ACTIVE PRN (16:49)
[2023-05-22 16:59] LABS: Adenovirus PCR Not Detected (NotDetected); Bordetella parapertussis PCR Not Detected (NotDetected); Bordetella pertussis PCR Not Detected (NotDetected); Chlamydia pneumoniae PCR Not Detected (NotDetected); Coronavirus 229E PCR Not Detected (NotDetected); Coronavirus CoV-2 (COVID19)PCR Not Detected (NotDetected); Coronavirus HKU1 PCR Not Detected (NotDetected); Coronavirus NL63 PCR Not Detected (NotDetected); Coronavirus OC43PCR Not Detected (NotDetected); Human Metapneumovirus PCR Not Detected (NotDetected); Influenza A PCR Not Detected (NotDetected); Influenza B PCR Not Detected (NotDetected); Mycoplasma pneumoniae PCR Not Detected (NotDetected); Parainfluenza Virus 1 PCR Not Detected (NotDetected); Parainfluenza Virus 2 PCR Not Detected (NotDetected); Parainfluenza Virus 3 PCR Not Detected (NotDetected); Parainfluenza Virus 4 PCR Not Detected (NotDetected); Respiratory Syncytial VirusPCR Not Detected (NotDetected)
[2023-05-22] MEDS ORDERED: SODIUM BICARB 8.4% INJ 50 MEQ/50 ML SYR IV ONE (17:08)
[2023-05-22] MEDS ORDERED: SODIUM BICARBONATE 8.4% INJ 50 MEQ/50 ML VIAL IV ONE (17:15)
[2023-05-22 17:18] LABS: Rhinovirus/Enterovirus PCR DETECTED (NotDetected)
--- NOTE | 2023-05-22 17:33 | Critical Care Consultation ---
Date of Consultation May 22, 2023 Assessment & Plan (1) Acute hyperkalemia: (2) Anemia: (3) Chronic lymphocytic leukemia: (4) Pneumonia: (5) Acute respiratory acidosis: (6) Respiratory failure: (7) Sepsis: Plan Reason Critically Ill: 57-year-old male past medical history of CML not on any treatment, HFrEF, COPD on oxygen, GERD was brought in intubated for respiratory distress Neuro - [facility] ICU: Negative Propofol and fentanyl for sedation Cardiac - -- HFrEF Compensated BNP 76 Respiratory - -- VDRF Multifactorial Likely secondary to COPD exacerbation secondary to entero-/rhinovirus Continue with ventilatory support Keep RASS -1 Respiratory bio fire negative for everything except for entero-/rhinovirus Procalcitonin 0.12 BNP 76 --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 On Advair and Spiriva at home GI - -- History of GERD Continue with pantoprazole RENAL/LYTES - --Hyperkalemia Follow-up EKG -- Metabolic alkalosis Likely compensation to chronic respiratory acidosis as well as the use of Lasix - -- Will put Ramon catheter in ENDO - -- ICU hypoglycemia protocol HEME - -- History of CML Not on any chemotherapy right now --Macrocytic anemia MCV 117 Monitor H&H --Thrombocytopenia Continue to monitor ID - -- Multilobar pneumonia Mostly affecting the right side Procalcitonin 0.12 Follow-up nasal MRSA Continue with broad-spectrum antibiotics --Prophylaxis VTE: IPC GI: Pantoprazole Lines: Peripheral Diet: N.p.o. Plan: Follow-up CT head For hyperkalemia give the patient Lokelma after putting OG tube. Follow-up EKG Start the patient on Brovana and budesonide nebulized for underlying COPD. Solu-Medrol 40 mg Q8. Follow-up sputum culture Continue with antibiotic with atypical coverage. Patient got vancomycin and cefepime in the ED Follow-up nasal MRSA Follow-up ABG. Patient is high risk for auto PEEP given the severe COPD. Thrombocytopenia could be from underlying CML. Continue with IVC for the time being. If it is stable and heparin versus Lovenox will be added for DVT prophylaxis I have personally spent 61 minutes of critical care time in the direct management of this patient. This is a life/limb threatening event. This includes time spent evaluating patient, direct bedside care, chart review, placing orders, interpretation of diagnostic studies, discussion with consultants, patient, and family members, as well as other required patient management activities. This time is exclusive of all separately billable procedures, and teaching time and separate from and in addition to any other critical care service time. History of Present Illness History of Present Illness 57-year-old male was brought in by the EMS intubated for shortness of breath Past medical history: COPD on chronic oxygen, systolic CHF, CML ICU was consulted because of intubation At the time of examination patient was saturating 99% on the vent He was breathing with the ventilator. End-tidal CO2 was in the 80s. Initially he was having difficulty ventilating through a ventilator as his peak pressures were really high. But we were able to change the settings and he was able to get the tidal volume. He had an episode of auto PEEP for which his respiratory rate was decreased. As per the chart patient was complaining of shortness of breath for the last couple of days progressively getting worse. That is why partner called EMS Social history: Smoker Allergies Allergy/AdvReac Type Severity Reaction Status Date / Time bee venom protein (honey bee) Allergy Unknown Verified 05/22/23 16:16 Penicillins Allergy Hives Verified 05/22/23 16:16 Home Medications Medication Instructions Recorded Confirmed Type albuterol sulfate 90 mcg/actuation 2 puff inhalation Q4 PRN Shortness 05/22/23 05/22/23 History aerosol inhaler Of Breath Or Wheezing epinephrine 0.3 mg/0.3 mL 0.3 mg IM UD PRN bee stings 05/22/23 05/22/23 History injection, auto-injector (EpiPen) fluticasone propionate 230 2 puff inhalation AMHS 05/22/23 05/22/23 History mcg-salmeterol 21 mcg/actuation HFA inhaler (Advair HFA) furosemide 80 mg tablet 80 mg PO BID 05/22/23 05/22/23 History omeprazole 20 mg capsule,delayed 20 mg PO DAILYBB 05/22/23 05/22/23 History release tiotropium bromide 18 mcg capsule 1 cap inhalation QAM 05/22/23 05/22/23 History with inhalation device (Spiriva with HandiHaler) Patient History Social History Smoking Status: Unknown if ever smoked Feels Safe at Home: Yes Review of Systems 2 Review of Systems: Unobtainable due to endotracheal tube Physical Exam 2 Physical Exam: Constitutional: No acute distress HEENT: PERRLA Respiratory system: Decreased air entry bilaterally, no wheeze, no rhonchi, positive crackles bilaterally more on the right side CVS: S1-S2 positive, no murmurs or gallops, distant heart sounds Abdomen: Soft, nontender, nondistended, positive bowel sounds x4, obese Extremities: +2 pulses bilaterally radialis/ dorsalis pedis, no cyanosis, positive edema bilateral lower extremity Neuro: Intubated Psych: Unable to assess G/U: No Ramon Skin: no rashes, warm and dry Lymphatic: no cervical or axillary lymphadenopathy Results & Data Results & Data Vital Signs (Past 12 Hours) Vital Signs Temp Pulse Resp BP Pulse Ox O2 Del Method FiO2 05/22/23 16:59 113 H 24 96 50 05/22/23 16:15 117 H 25 H 114/74 99 Mechanical Vent 05/22/23 16:10 119 H 30 H 99 Mechanical Vent 05/22/23 16:05 119 H 0 L 108/72 96 Mechanical Vent 05/22/23 16:00 112 H 32 H 130/81 88 L Mechanical Vent 05/22/23 15:56 108 H 05/22/23 15:55 114 H 28 H 134/84 93 Mechanical Vent 05/22/23 15:46 115 H 0 L 142/85 H 100 Mechanical Vent 05/22/23 15:45 114 H 31 H 129/102 H 99 Mechanical Vent 05/22/23 15:40 109 H 171/105 H 84 L Mechanical Vent 05/22/23 15:39 108 H 178/105 H 88 L Mechanical Vent 05/22/23 14:46 35.6 C L 111 H 45 H 176/111 H 100 Mechanical Vent Laboratory Results 05/22/23 15:42 05/22/23 15:42 Coding Level of Care Code 53487 CRITICAL CARE 1ST 30-74M Diagnoses Acute hyperkalemia E87.5 Anemia D64.9 Anemia type: unspecified type Chronic lymphocytic leukemia C91.10 Pneumonia J18.9 Laterality: right Lung location: unspecified part of lung Pneumonia type: due to unspecified organism Acute respiratory acidosis J96.02 Respiratory failure J96.01; J96.02 Chronicity: acute Respiratory failure complication: hypoxia and hypercapnia Sepsis A41.9; R65.21; J96.01 Acute respiratory failure type: with hypoxia Sepsis acute organ dysfunction status: with acute organ dysfunction Sepsis type: sepsis due to unspecified organism Severe sepsis acute organ dysfunction type: acute respiratory failure Severe sepsis shock status: with septic shock (2) Anemia Anemia type: unspecified type Qualified Code(s): D64.9 - Anemia, unspecified (4) Pneumonia Laterality: right Lung location: unspecified part of lung Pneumonia type: d ue to unspecified organism Qualified Code(s): J18.9 - Pneumonia, unspecified organism (6) Respiratory failure Chronicity: acute Respiratory failure complication: hypoxia and hypercapnia Qualified Code(s): J96.01 - Acute respiratory failure with hypoxia; J96.02 - Acute respiratory failure with hypercapnia (7) Sepsis Acute respiratory failure type: with hypoxia Sepsis acute organ dysfunction status: with acute organ dysfunction Sepsis type: sepsis due to unspecified organism Severe sepsis acute organ dysfunction type: acute respiratory failure Severe sepsis shock status: with septic shock Qualified Code(s): A41.9 - Sepsis, unspecified organism; R65.21 - Severe sepsis with septic shock; J96.01 - Acute respiratory failure with hypoxia
--- NOTE | 2023-05-22 17:38 | History & Physical Report ---
Date of Service May 22, 2023 Assessment & Plan (1) Acute and chronic respiratory failure: Plan This is a medically complex 57-year-old male with PMH of COPD, chronic hypoxemic respiratory failure requiring 2-3 L NC with exertion and HS, ongoing tobacco use, chronic right-sided heart failure, CLL, selective deficiency of IgA and M and other medical problems listed below who presents with acute respiratory failure requiring intubation prior to arrival. History of multiple admissions for acute respiratory failure in the setting of multifactorial issues including COPD exacerbation, multifocal pneumonia and decompensated heart failure. In 2020, was admitted here and then transferred for [facility] for ongoing treatment of MRSA bacteremia in the setting of necrotizing pneumonia, CLL. Was most recently admitted to [facility] in June 2022. with H. influenzae pneumonia. 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 ABG pending CXR with cardiomegaly with evidence of congestive failure. There are asymmetric bilateral airspace opacities, right > left. This could represent pulmonary edema, and/or multifocal pneumonia CT chest pending Discussed case with Dr. Carrington, who will manage in ICU WBC 181 in setting of CLL, procal and lactate WNL Continue empiric abx with vanco, meropenem and doxy Started on Brovana and budesonide for underlying COPD, solu-medrol 40mg Q8H Follow up nasal MRSA, blood and sputum cultures Vent management per dinkey operator Chronic right sided heart failure CT chest pending for better visualiztion Home lasix course is 80mg BID, macdonald in place CLL Not currently on chemotherapy, follows with Dr. Ramirez. Missed March appt Thrombocytopenia In setting of CLL. SCDs for now, ICU to add chemical dvt ppx based on repeat platelet counts Hyperkalemia Per Dr. Carrington, patient getting Lokelma after OG tube placement. Repeat EKG Updated daughter Sonal on the phone: [phone] DVT Ppx: SCDs Code status: FULL PCP: [facility] Dispo: admitted to ICU Patient seen in collaboration with Dr. Reyna. Please see addendum. History of Present Illness Chief Complaint: acure resp failure Primary Care Provider: Stas Ardon MD This is a medically complex 57-year-old male with PMH of COPD, chronic hypoxemic respiratory failure requiring 2-3 L NC with exertion and HS, ongoing tobacco use, chronic right-sided heart failure, CLL, selective deficiency of IgA and M and other medical problems listed below who presents with acute respiratory failure requiring intubation prior to arrival. History of multiple admissions for acute respiratory failure in the setting of multifactorial issues including COPD exacerbation, multifocal pneumonia and decompensated heart failure. In 2020, was admitted here and then transferred for [facility] for treatment of MRSA bacteremia in the setting of necrotizing pneumonia. Was most recently admitted to [facility] in June 2022. with H. influenzae pneumonia. History obtained from chart review and discussion on the phone with daughter, Sonal as patient is intubated. Lives alone and visiting for the holiday. For the last few days, patient has not been feeling well and developed cough and congestion. + sick grandchild visiting. Earlier today, family turned up oxygen to 4-5L due to increased shortness of breath called EMS after he started to complain of lightheadedness. EMS was called and intubated patient in the field due to severe respiratory distress and syncopal episode. Lives alone. At baseline, ambulates independently but is oxygen dependent. Still smokes cigarettes and drinks beer but has reportedly significantly decreased intake to 1-2x/month. Allergies Allergy/AdvReac Type Severity Reaction Status Date / Time Penicillins Allergy Intermediate Hives Verified 05/24/23 07:31 bee venom protein (honey bee) Allergy Unknown ON [facility] MED Verified 05/24/23 07:31 LIST Home Medications Medication Instructions Recorded Confirmed Type albuterol sulfate 2.5 mg/3 mL 2.5 mg inhalation DIRECTED PRN 06/25/22 06/25/22 History (0.083 %) solution for nebulization Shortness Of Breath epinephrine 0.3 mg/0.3 mL 0.3 mg IM DIRECTED PRN Allergic 06/25/22 06/25/22 History injection, auto-injector Reaction fluticasone propionate 230 2 inh inhalation BID 06/25/22 06/25/22 History mcg-salmeterol 21 mcg/actuation HFA inhaler (Advair HFA) furosemide 80 mg tablet 80 mg PO BID 06/25/22 06/25/22 History tamsulosin 0.4 mg capsule 0.4 mg PO DAILY 06/25/22 06/25/22 History tiotropium bromide 18 mcg capsule 18 mcg inhalation DAILY 06/25/22 06/25/22 History with inhalation device (Spiriva with HandiHaler) prednisone 10 mg tablet 10 mg PO DIRECTED #50 tabs 06/30/22 Rx albuterol sulfate 90 mcg/actuation 2 puff inhalation Q4 PRN Shortness 05/22/23 05/22/23 History aerosol inhaler Of Breath Or Wheezing epinephrine 0.3 mg/0.3 mL 0.3 mg IM UD PRN bee stings 05/22/23 05/22/23 History injection, auto-injector (EpiPen) fluticasone propionate 230 2 puff inhalation AMHS 05/22/23 05/22/23 History mcg-salmeterol 21 mcg/actuation HFA inhaler (Advair HFA) furosemide 80 mg tablet 80 mg PO BID 05/22/23 05/22/23 History omeprazole 20 mg capsule,delayed 20 mg PO DAILYBB 05/22/23 05/22/23 History release tiotropium bromide 18 mcg capsule 1 cap inhalation QAM 05/22/23 05/22/23 History with inhalation device (Spiriva with HandiHaler) Past Med/Surg History Medical History (Updated 05/24/23 @ 07:31 by Lizzy Gupta) 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] HTN (hypertension) Lung nodules Chronic right-sided heart failure Tobacco use Chronic respiratory failure COPD (chronic obstructive pulmonary disease) Chronic lymphocytic leukemia CHF (congestive heart failure) Necrotizing pneumonia CLL (chronic lymphocytic leukemia) Obesity COPD (chronic obstructive pulmonary disease) HLD (hyperlipidemia) HTN (hypertension) Acute respiratory failure with hypoxia Acute leukemia Surgical History (Updated 05/24/23 @ 07:31 by Lizzy Gupta) Hx of appendectomy [place] [facility] [place] History (System 05/24/23 @ 07:31 by Lizzy Gupta) Other Heart disease Lung cancer Social History (System 05/24/23 @ 07:31 by Lizzy Gupta) Smoking Status: Current every day smoker Tobacco Type: Cigarettes Second Hand Exposure: No; Do You Dip or Chew Tobacco: No; Hx Alcohol Use: Yes Alcohol type: beer Alcohol Intake Frequency: 2-4 x/Month Hx Substance Use: No Preferred Language: Georgian Communication Ability: Impaired 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 Beliefs That Will Affect Care: None Current Living Situation: Alone Feels Safe at Home: Yes Assistive Devices: Cane Review of Systems Review of Systems: Unobtainable due to endotracheal tube Physical Exam Physical Exam: General Appearance: WD/WN, vitals as above, intubated, obese Head: normocephalic, atraumatic Eyes: normal inspection, PERRL, conjunctivae normal, anicteric sclerae ENT: external ear and nose normal, oropharynx normal Neck: normal visual inspection, trachea midline Respiratory: diminished lung sounds throughout, + R sided crackles and rales Cardiovascular: tachycardic rate, regular rhythm, no BLE edema Chest: normal inspection of chest Abdomen/GI: normal bowel sounds, soft, nontender, no hepatosplenomegaly Extremities/Musculoskeletal: no cyanosis or clubbing, extremities motor strength 5/5 : Macdonald Neurologic/psych: intubated Skin: no rashes, normal color, warm/dry Results & Data Results & Data Vital Signs (Past 12 Hours) Vital Signs Temp Pulse Resp BP Pulse Ox O2 Del Method FiO2 05/22/23 16:59 113 H 24 96 50 05/22/23 16:15 117 H 25 H 114/74 99 Mechanical Vent 05/22/23 16:10 119 H 30 H 99 Mechanical Vent 05/22/23 16:05 119 H 0 L 108/72 96 Mechanical Vent 05/22/23 16:00 112 H 32 H 130/81 88 L Mechanical Vent 05/22/23 15:56 108 H 05/22/23 15:55 114 H 28 H 134/84 93 Mechanical Vent 05/22/23 15:46 115 H 0 L 142/85 H 100 Mechanical Vent 05/22/23 15:45 114 H 31 H 129/102 H 99 Mechanical Vent 05/22/23 15:40 109 H 171/105 H 84 L Mechanical Vent 05/22/23 15:39 108 H 178/105 H 88 L Mechanical Vent 05/22/23 14:46 35.6 C L 111 H 45 H 176/111 H 100 Mechanical Vent Laboratory Results Short CBC 05/22/23 Range/Units 15:42 WBC 181.88 H* (4.8-10.8) K/ul Hgb 8.4 L (14.0-18.0) g/dl Hct 31.0 L (42.0-52.0) % Plt Count 68 L (130-400) K/uL BMP 05/22/23 15:42 Sodium 138 Potassium 5.8 H Chloride 96 L Carbon Dioxide 43 H* BUN 16 Creatinine 1.05 Glucose 300 H Calcium 8.3 L Liver Function 05/22/23 Range/Units 15:42 Total Bilirubin 0.6 (0.2-1.0) mg/dl Direct Bilirubin 0.1 (0-0.2) mg/dl AST 20 (13-39) U/L ALT 16 (7-52) U/L Alkaline Phosphatase 126 H (34-104) U/L Albumin 4.3 (3.4-5.0) gm/dl Urine 05/22/23 Range/Units Unknown Urine Color Dark Yellow Urine Appearance Clear (Clear) Urine pH 5.0 (4.5-7.5) Ur Specific Turrell 1.020 (1.000-1.030) Urine Protein 2+ H (Negative) Urine Glucose (UA) Negative (Negative) Diagnostic Findings Chest X-Ray 05/22/23 15:27 SINGLE VIEW CHEST CLINICAL HISTORY: Sepsis. Respiratory failure. FINDINGS: 2 AP, portable, supine chest radiographs are obtained. No prior studies are available for comparison at the time of dictation. The examination is degraded by portable technique, apical lordotic positioning, and patient rotation. An endotracheal tube has been placed. The tip projects approximately 7 cm above the melani. The heart is enlarged. There is pulmonary vascular congest ion. There are multifocal bilateral airspace opacities, asymmetrically greater on the right. No large pleural effusion or pneumothorax is seen. The bony thorax is grossly intact. IMPRESSION: 1. An endotracheal tube has been placed as above. 2. Cardiomegaly with evidence of congestive failure. 3. There are asymmetric bilateral airspace opacities, right greater than left. This could represent pulmonary edema, and/or multifocal pneumonia. Clinical correlation will be essential and radiographic follow-up to resolution is recommended.. ACT 112: Negative or not required by law. Electronically signed by: Leo Marcial M.D. 05/22/2023 4:[address] 05/22/23 17:02 CT SCAN OF THE BRAIN WITHOUT IV CONTRAST CLINICAL HISTORY: Change in mental status. COMPARISON STUDY: No priors. TECHNIQUE: Unenhanced axial CT scan of the brain is performed from the vertex to the skull base. A dose lowering technique was utilized adhering to the principles of ALARA. FINDINGS: Endotracheal and enteric tubes are noted on the spool cleaner hand tomogram. Brain parenchyma: The brain parenchyma is normal in appearance. There is no hemorrhage, mass effect, or evidence of acute territorial ischemia by CT criteria. Aviles-white matter differentiation is preserved. No extra-axial fluid collection is seen. Ventricles, sulci, cisterns: Normal in configuration. Intracranial vasculature: There is atherosclerotic calcification of the cavernous carotid and vertebral arteries. Calvarium: Unremarkable. Sinuses and mastoids: There is subtotal opacification of the ethmoid sinuses. Moderate mucosal thickening is noted within the sphenoid and maxillary sinuses. Fluid fills the nasopharynx. The mastoid air cells are well pneumatized. Orbits: The bony orbits are grossly intact. IMPRESSION: There is no hemorrhage, mass effect, or evidence of acute territorial ischemia by CT criteria. ACT 112: Negative or not required by law. Electronically signed by: Leo Marcial M.D. 05/22/2023 6:21 PM Supervising Physician Co-Signing Physician Notes delayed entry date of service noted above Attending Addendum: care coordinated with LIANNE Contreras please refer to her notes for full details, I agree with her notes patient seen and examined, records reviewed by myself as well diagnoses and plan of care as per LIANNE Contreras's notes Ronaldo Reyna MD
[2023-05-22] MEDS ORDERED: LACTATED RINGER'S 1,000 ML IV ONE (17:45)
[2023-05-22] MEDS: methylPREDNISolone 40 MG in SYRINGE 0 ML IV SCH (17:53)
[2023-05-22] MEDS ORDERED: MEROPENEM 500 MG in SYRINGE 0 ML IV ONE (18:00)
[2023-05-22 18:04] LABS: Thyroid Stimulating Hormone 1.837 uIu/ml (0.300-4.500)
--- NOTE | 2023-05-22 18:22 | CT Scan Report ---
CT SCAN OF THE BRAIN WITHOUT IV CONTRAST CLINICAL HISTORY: Change in mental status. COMPARISON STUDY: No priors. TECHNIQUE: Unenhanced axial CT scan of the brain is performed from the vertex to the skull base. A d ose lowering technique was utilized adhering to the principles of ALARA. FINDINGS: Endotracheal and enteric tubes are noted on the small engine technician tomogram. Brain parenchyma: The brain parenchyma is normal in appearance. There is no hemorrhage, mass effect, or evidence of acute territorial ischemia by CT criteria. Aviles-white matter differentiation is preser louis. No extra-axial fluid collection is seen. Ventricles, sulci, cisterns: Normal in configuration. Intracranial vasculature: There is atherosclerotic calcification of the cavernous carotid and vertebr al arteries. Calvarium: Unremarkable. Sinuses and mastoids: There is subtotal opacification of the ethmoid sinuses. Moderate mucosal thicke radhika is noted within the sphenoid and maxillary sinuses. Fluid fills the nasopharynx. The mastoid air cells are well pneumatized. Orbits: The bony orbits are grossly intact. IMPRESSION: There is no hemorrhage, mass effect, or evidence of acute territorial ischemia by CT bibi srivastava. ACT 112: Negative or not required by law. Electronically signed by: Leo Marcial M.D. 05/22/2023 6:21 PM
[2023-05-22] MEDS ORDERED: fentaNYL citrate PF 100 MCG/2 ML VIAL ONE (18:28)
[2023-05-22] MEDS ORDERED: DOXYCYCLINE HYCLATE 100 MG in DEXTROSE 5% MINI-B 100 ML IV ONE (18:30)
[2023-05-22 18:53] LABS: iSTAT Arterial Blood Gas HCO3 37 meg/L (19-24); iSTAT Arterial Blood Gas pCO2 > 115 mmHg (35-46); iSTAT Arterial Blood Gas pH 7.08 (7.35-7.45); iSTAT Arterial Blood Gas pO2 < 32 mmHg (80-95); iSTAT Carbon Dioxide > 40 mmol/L (24-31); iSTAT Hematocrit 23 % (42-52); iSTAT Hemoglobin 7.8 g/dl (14.0-18.0); iSTAT Potassium 4.7 mmol/L (3.3-5.0); iSTAT Sodium 138 mmol/L (135-144)
[2023-05-22 18:54] LABS: Amphetamines+Metham, Urine Neg (Neg); Barbiturates, Urine Neg (Neg); Benzodiazepine, Urine Neg (Neg); Cocaine, Urine Neg (Neg); MDMA (Ecstacy), Urine Neg (Neg); Marijuana, Urine Pos (Neg); Methadone, Urine Neg (Neg); Opiate, Urine Neg (Neg); Phencyclidine, Urine Neg (Neg)
[2023-05-22] MEDS ORDERED: methylPREDNISolone 125 MG/2 ML VIAL IV STA (19:09)
--- NOTE | 2023-05-22 19:18 | CT Scan Report ---
CT SCAN OF THE CHEST WITHOUT IV CONTRAST CLINICAL HISTORY: Respiratory failure. COMPARISON STUDY: Chest x-ray dated 05/22/2023. TECHNIQUE: CT scan of the thorax was performed from the thoracic inlet to the upper abdomen. Images are reviewed in the axial, sagittal, and coronal planes. IV contrast was not administered for this ex amination as per the referring clinician. A dose lowering technique was utilized adhering to the lonnie Willett. CT DOSE: 1739.33 mGy.cm FINDINGS: Thyroid: Imaged portions of the thyroid gland are normal in size and attenuation. Thoracic aorta: There is atherosclerotic calcification of the thoracic aorta, which is normal in monica valencia and demonstrates bovine variant arch anatomy. Heart: The heart is enlarged noting trace pericardial effusion. The coronary arteries are densely toney cified. There is diminished attenuation of the cardiac blood pool as compared to the myocardium sugge sting anemia. Lungs and pleural spaces: An endotracheal term terminates above the melani. There are small right and trace left pleural effusions. Intralobular septal thickening is seen throughout both lungs. Multifoc al patchy airspace consolidation and patchy nodular opacities are seen throughout both lungs, asymmet rically greater on the right. There are scattered calcified granulomas. Secretions are noted in the t rachea. There is diffuse peribronchial thickening. Lower neck: An enlarged left cervical lymph node is partially visualized. This measures 13 mm in shor t axis. Mediastinum: There is mediastinal lymphadenopathy. Paratracheal nodes measure up to 1.2 cm short axis . Prevascular nodes measure up to 1.1 cm short axis, and a precarinal node measures up to 1.6 cm shor t axis. Michelle: There is likely hilar lymphadenopathy. This is not well assessed without IV contrast. Axillae: There is no axillary lymphadenopathy. Upper abdomen: An enteric tube is in place. This extends below the diaphragm and stomach. The spleen is markedly enlarged, measuring at least 19 cm in length. The liver also appears enlarged. There are mildly enlarged upper abdominal lymph nodes. A gastrohepatic node measures up to 11 mm in short axis. Skeletal structures: No lytic or blastic bony lesions are seen. IMPRESSION: 1. Endotracheal and enteric tubes are in place. 2. Cardiomegaly with evidence of congestive failure. 3. Small right and trace left pleural effusions. 4. Multifocal patchy airspace consolidation is seen throughout both lungs, and there are also multifo toney patchy nodular airspace opacities. This is asymmetrically greater on the right, and the appearanc e favors a multifocal pneumonia. Clinical correlation will be essential. A follow-up chest CT in 3-4 months time is recommended to document resolution and reassess the underlying lung parenchyma/pulmona ry nodules. 5. There is marked splenomegaly, as well as upper abdominal, mediastinal, and sternoclavicular lympha denopathy. There is also likely hilar lymphadenopathy. These findings are nonspecific but could be se en with a lymphoproliferative disorder such as lymphoma. 6. The liver also appears enlarged. 7. Additional findings as above. ACT 112: Positive. There are findings on this exam that require communication between the performing entity and the patient following Patient Test Result Information Act ([place] Act 112) guidelines. Electronically signed by: Leo Marcial M.D. 05/22/2023 7:15 PM
[2023-05-22] MEDS: fentaNYL citrate 2,500 MCG/250 ML BAG IV SCH (20:00)
[2023-05-22] MEDS ORDERED: STAT IV Infusion **Titration per Protocol STA (20:03)
[2023-05-22] MEDS ORDERED: fentaNYL citrate 2,500 MCG/250 ML BAG IV ONE (20:05)
[2023-05-22] MEDS: BUDESONIDE 0.25 MG/2 ML VIAL (PULMICORT) NEB SCH (20:41)
[2023-05-22] MEDS: FORMOTEROL 20 MCG/2 ML VIAL INH SCH (20:42)
[2023-05-22] MEDS ORDERED: SODIUM ZIRCONIUM CYCLOSILICATE 10 GM PACKET PO SCH (21:00)
[2023-05-22] MEDS ORDERED: GLUCAGON FOR INJ 1 MG VIAL SQ PRN (21:16)
[2023-05-22] MEDS ORDERED: GLUCOSE 40% GEL 15 GM TUBE PO PRN (21:16)
[2023-05-22] MEDS ORDERED: CARBOHYDRATES FOR HYPOGLYCEMIA PO PRN (21:16)
[2023-05-22] MEDS ORDERED: GLUCOSE 10 TAB/TUBE PO PRN (21:16)
[2023-05-22] MEDS ORDERED: DEXTROSE 50% 50 ML SYRINGE IV PRN (21:16)
[2023-05-22] MEDS: ICU Protocol for HYPERglycemia SCH (21:19)
[2023-05-22] MEDS: MIDAZOLAM HCL 125 MG/250 ML BAG IV SCH (21:20)
[2023-05-22] MEDS: PLASMA-LYTE A 1,000 ML IV SCH (21:42)
[2023-05-22 21:49] LABS: BUN Creatinine Ratio 13.4 (10-20); Calcium 8.1 mg/dl (8.6-10.3); Creatinine Clr Calc Pharmacy 75.4 ml/min; Est GFR (African American) 67.2 ml/min; Potassium 5.1 mmol/L (3.5-5.1)
[2023-05-22] MEDS ORDERED: fentaNYL citrate PF 100 MCG/2 ML VIAL IV STA (23:00)
[2023-05-22] MEDS: ALBUT/IPRATROP 3MG/0.5MG NEB 3 ML VIAL NEB SCH (23:15)
[2023-05-23] MEDS: MEROPENEM 500 MG in SYRINGE 0 ML IV SCH ×4 (00:07→22:33)
[2023-05-23] MEDS: INSULIN ASPART PER UNIT CHARGE SC SCH ×4 (00:11→18:34)
[2023-05-23] MEDS: MIDAZOLAM BOLUS FROM BAG IV PRN ×3 (00:22→23:55)
[2023-05-23] MEDS: fentaNYL BOLUS from BAG IV PRN ×3 (00:22→22:00)
[2023-05-23] MEDS: methylPREDNISolone 40 MG in SYRINGE 0 ML IV SCH ×3 (01:25→18:33)
[2023-05-23] MEDS: ALBUT/IPRATROP 3MG/0.5MG NEB 3 ML VIAL NEB SCH ×2 (02:00→08:05)
[2023-05-23 05:26] LABS: BUN Creatinine Ratio 15.5 (10-20); Calcium 7.8 mg/dl (8.6-10.3); Creatinine Clr Calc Pharmacy 69.1 ml/min; Est GFR (African American) 62.7 ml/min; Est GFR (Non-African American) 54.1 ml/min; Magnesium 1.6 mg/dl (1.7-2.4); Phosphorus 2.7 mg/dl (2.5-4.9); Potassium 4.3 mmol/L (3.5-5.1)
[2023-05-23 05:35] LABS: Hematocrit (blood only) 20.7 % (42.0-52.0); Hemoglobin 6.4 g/dl (14.0-18.0); Mean Corpuscular Hemoglobin 33.5 pg (25.0-34.0); Mean Corpuscular Hgb Conc 30.9 g/dL (32.0-36.0); Mean Corpuscular Volume 108.4 fL (80.0-100.0); RDW Coefficient of Variation 16.5 % (11.5-14.5); RDW Standard Deviation 65.7 fL (36.4-46.3); Red Blood Count 1.91 M/uL (4.70-6.10); White Blood Count 24.69 K/ul (4.8-10.8)
[2023-05-23 05:44] LABS: Mean Platelet Volume 12.5 fL (9.4-12.4); Nucleated RBC # (auto) 0.06 K/uL (0.00-0.12); Nucleated RBC % (auto) 0.2 %; Platelet Count 35 K/uL (130-400)
[2023-05-23] MEDS ORDERED: SODIUM CHLORIDE 0.9% 250 ML IV PRN ×2 (06:13→21:40)
[2023-05-23 06:17] LABS: Basophils # (auto) 0.01 K/uL (0.00-0.20); Eosinophils # (auto) 0.01 K/uL (0.00-0.50); Immature Granulocytes # (auto) 0.04 K/uL (0.01-0.20); Immature Granulocytes % (auto) 0.2 %; Lymphocytes # (auto) 21.23 K/uL (1.20-3.40); Monocytes # (auto) 2.59 K/uL (0.11-0.59); Monocytes % (auto) 10.5 %; Neutrophils # (auto) 0.81 K/uL (1.40-6.50); Neutrophils % (auto) 3.3 %; Polychromasia 1+; Stomatocytes 2+
[2023-05-23] MEDS: MAGNESIUM SULFATE / D5W 1 GM/100 ML BAG IV SCH ×3 (06:18→10:24)
[2023-05-23] MEDS ORDERED: DOXYCYCLINE HYCLATE 100 MG in DEXTROSE 5% MINI-B 100 ML IV SCH (07:00)
[2023-05-23] MEDS ORDERED: VANCOMYCIN HCL 1,250 MG in SODIUM CHLORIDE 0.9% 250 ML IV SCH (07:00)
[2023-05-23] MEDS: ICU Protocol for HYPERglycemia SCH (08:01)
[2023-05-23] MEDS: BUDESONIDE 0.25 MG/2 ML VIAL (PULMICORT) NEB SCH ×2 (08:05→19:40)
[2023-05-23] MEDS: FORMOTEROL 20 MCG/2 ML VIAL INH SCH ×2 (08:05→19:40)
--- NOTE | 2023-05-23 08:16 | XRay Report ---
XR chest 1V portable CLINICAL HISTORY: Respiratory failure. COMPARISON STUDY: Chest radiograph and chest CT May 22, 2023. FINDINGS: Tip of endotracheal tube is 6.1 cm above the melani. Tip of nasogastric tube is below the l ower aspect of this image but at least within the body of the stomach. Cardiomediastinal silhouette i s stable. There is no pneumothorax or pleural effusion. Multifocal airspace opacities and interstitia l thickening have improved. IMPRESSION: 1. Tip of endotracheal tube 6.1 cm above the melani. 2. Interstitial thickening and multifocal airspace opacities, improved since prior exam. The findings favor multifocal pneumonia. Continued radiographic follow up to ensure resolution is recommended. ACT 112: Negative or not required by law. Electronically signed by: Chepe Laguna M.D. 05/23/2023 8:15 AM
[2023-05-23 08:53] LABS: iSTAT Arterial Blood Gas HCO3 35 meg/L (19-24); iSTAT Arterial Blood Gas pCO2 65 mmHg (35-46); iSTAT Arterial Blood Gas pH 7.33 (7.35-7.45); iSTAT Arterial Blood Gas pO2 66 mmHg (80-95); iSTAT Carbon Dioxide 37 mmol/L (24-31); iSTAT Hematocrit 21 % (42-52); iSTAT Hemoglobin 7.1 g/dl (14.0-18.0); iSTAT Sodium 139 mmol/L (135-144)
[2023-05-23 08:53] LABS: iSTAT Arterial Blood Gas HCO3 36 meg/L (19-24); iSTAT Arterial Blood Gas pCO2 53 mmHg (35-46); iSTAT Arterial Blood Gas pH 7.45 (7.35-7.45); iSTAT Arterial Blood Gas pO2 66 mmHg (80-95); iSTAT Carbon Dioxide 38 mmol/L (24-31); iSTAT Hematocrit 21 % (42-52); iSTAT Hemoglobin 7.1 g/dl (14.0-18.0); iSTAT Potassium 4.9 mmol/L (3.3-5.0); iSTAT Sodium 139 mmol/L (135-144)
[2023-05-23 08:53] LABS: iSTAT Arterial Blood Gas HCO3 36 meg/L (19-24); iSTAT Arterial Blood Gas pCO2 72 mmHg (35-46); iSTAT Arterial Blood Gas pH 7.31 (7.35-7.45); iSTAT Arterial Blood Gas pO2 62 mmHg (80-95); iSTAT Carbon Dioxide 38 mmol/L (24-31); iSTAT Hematocrit 22 % (42-52); iSTAT Hemoglobin 7.5 g/dl (14.0-18.0); iSTAT Potassium 5.2 mmol/L (3.3-5.0); iSTAT Sodium 139 mmol/L (135-144)
[2023-05-23] MEDS ORDERED: INFLUENZA VIRUS QUADRIVALENT VACCINE (IIV4) 0.5 ML SYR IM ONE (09:00)
[2023-05-23] MEDS ORDERED: PNEUMOCOCCAL VACCINE (PCV20) 20-VAL CONJ-DIP CRM/PF 0.5 ML SYR IM ONE (09:00)
--- NOTE | 2023-05-23 09:46 | Critical Care Progress Note ---
Date of Service May 23, 2023 Assessment & Plan (1) Acute hyperkalemia: (2) Anemia: (3) Chronic lymphocytic leukemia: (4) Pneumonia: (5) Acute respiratory acidosis: (6) Respiratory failure: (7) Sepsis: Plan Reason Critically Ill: 57-year-old male past medical history of CML not on any treatment, HFrEF, COPD on oxygen, GERD was brought in intubated for respiratory distress Neuro - [facility] ICU: Negative Propofol and fentanyl for sedation Cardiac - -- HFrEF Compensated BNP 76 Respiratory - -- VDRF Multifactorial Likely secondary to COPD exacerbation secondary to entero-/rhinovirus Continue with ventilatory support Keep RASS -1 Respiratory bio fire negative for everything except for entero-/rhinovirus Procalcitonin 0.12 BNP 76 --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 On Advair and Spiriva at home GI - -- History of GERD Continue with pantoprazole RENAL/LYTES - --Hyperkalemia Follow-up EKG -- Metabolic alkalosis Likely compensation to chronic respiratory acidosis as well as the use of Lasix - -- Will put Ramon catheter in ENDO - -- ICU hypoglycemia protocol HEME - -- History of CML Not on any chemotherapy right now - 1 Unit PRBCs Peripheral smear pending --Macrocytic anemia MCV 117 Monitor H&H --Thrombocytopenia Continue to monitor ID - -- Multilobar pneumonia Mostly affecting the right side Procalcitonin 0.12 Follow-up nasal MRSA Continue with broad-spectrum antibiotics --Prophylaxis VTE: IPC GI: Pantoprazole Lines: Peripheral Diet: N.p.o. Plan: Contacted the patient's daughter: Martine pacheco at [phone]. Consent obtained for blood transfusion, central venous access, arterial line. Reported he has n ot been , has only 1 adult child. Additional contact of sister Balwinder Edouard was given [phone], Martine reports she is likely a general power of institutional research director, Martine is unaware of the patient having a medical power institutional research director executed. - Contacted Balwinder Edouard: no formal medical power of institutional research director. I have personally spent 60 minutes of critical care time in the direct management of this patient. This is a life/limb threatening event. This includes time spent evaluating patient, direct bedside care, chart review, placing orders, interpretation of diagnostic studies, discussion with consultants, patient, and family members, as well as other required patient management activities. This time is exclusive of all separately billable procedures, and teaching time and separate from and in addition to any other critical care service time. Admission and Anticipated Discharge Date Admission Date: May 22, 2023 Subjective No overnight events Review of Systems Review of Systems: Unobtainable due to endotracheal tube Physical Exam Physical Exam: General: Sedated. nontoxic. Skin: Warm, dry, Head: Atraumatic Ears, nose, mouth and throat: airway obscured by endotracheal tube Cardiovascular: Normal peripheral perfusion Respiratory: Ventilator settings reviewed Gastrointestinal: Non distended Musculoskeletal: No deformity Results & Data Results & Data Vital Signs (Past 12 Hours) Vital Signs Temp Pulse Resp BP Pulse Ox O2 Del Method FiO2 05/23/23 08:05 84 24 97 60 05/23/23 06:00 37.3 C 92 H 24 127/70 98 Mechanical Vent 60 05/23/23 05:30 37.3 C 93 H 24 97 Mechanical Vent 60 05/23/23 05:00 37.2 C 97 H 24 113/59 L 97 Mechanical Vent 60 05/23/23 04:30 37.1 C 102 H 24 95 Mechanical Vent 60 05/23/23 04:00 37.1 C 105 H 24 98/58 L 95 Mechanical Vent 60 05/23/23 04:00 60 05/23/23 03:30 37.2 C 108 H 22 93 Mechanical Vent 60 05/23/23 03:00 37.3 C 109 H 22 107/59 L 91 Mechanical Vent 40 05/23/23 02:55 92 H 22 91 40 05/23/23 02:30 37.2 C 107 H 22 100 Mechanical Vent 40 05/23/23 02:00 37.1 C 94 H 22 100/64 96 Mechanical Vent 40 05/23/23 01:30 37.0 C 95 H 22 91 Mechanical Vent 40 05/23/23 01:09 Mechanical Vent 40 05/23/23 01:00 36.9 C 96 H 22 113/61 91 Mechanical Vent 40 05/23/23 00:30 36.8 C 100 H 22 92 Mechanical Vent 40 05/23/23 00:00 36.7 C 92 H 22 119/67 93 Mechanical Vent 40 05/23/23 00:00 40 05/22/23 23:39 77 28 H 98 40 05/22/23 23:30 36.7 C 84 22 93 Mechanical Vent 40 05/22/23 23:00 36.6 C 77 22 99/61 L 96 Mechanical Vent 40 05/22/23 22:30 36.5 C 76 22 99 Mechanical Vent 40 05/22/23 22:00 36.3 C L 77 28 H 104/63 100 Mechanical Vent 40 Critical Care Results & Data Vital Signs (Past 12 Hours) Vital Signs Temp Pulse Resp BP Pulse Ox O2 Del Method FiO2 05/23/23 08:05 84 24 97 60 05/23/23 06:00 37.3 C 92 H 24 127/70 98 Mechanical Vent 60 05/23/23 05:30 37.3 C 93 H 24 97 Mechanical Vent 60 05/23/23 05:00 37.2 C 97 H 24 113/59 L 97 Mechanical Vent 60 05/23/23 04:30 37.1 C 102 H 24 95 Mechanical Vent 60 05/23/23 04:00 37.1 C 105 H 24 98/58 L 95 Mechanical Vent 60 05/23/23 04:00 60 05/23/23 03:30 37.2 C 108 H 22 93 Mechanical Vent 60 05/23/23 03:00 37.3 C 109 H 22 107/59 L 91 Mechanical Vent 40 05/23/23 02:55 92 H 22 91 40 05/23/23 02:30 37.2 C 107 H 22 100 Mechanical Vent 40 05/23/23 02:00 37.1 C 94 H 22 100/64 96 Mechanical Vent 40 05/23/23 01:30 37.0 C 95 H 22 91 Mechanical Vent 40 05/23/23 01:09 Mechanical Vent 40 05/23/23 01:00 36.9 C 96 H 22 113/61 91 Mechanical Vent 40 05/23/23 00:30 36.8 C 100 H 22 92 Mechanical Vent 40 05/23/23 00:00 36.7 C 92 H 22 119/67 93 Mechanical Vent 40 05/23/23 00:00 40 05/22/23 23:39 77 28 H 98 40 05/22/23 23:30 36.7 C 84 22 93 Mechanical Vent 40 05/22/23 23:00 36.6 C 77 22 99/61 L 96 Mechanical Vent 40 Lab & Micro Results (Past 24 Hours) RBC 1.91 M/uL (4.70-6.10) L 05/23/23 WBC 24.69 K/ul (4.8-10.8) H 05/23/23 Hgb 6.4 g/dl (14.0-18.0) L* 05/23/23 Hct 20.7 % (42.0-52.0) L* 05/23/23 MCV 108.4 fL (80.0-100.0) H 05/23/23 MCH 33.5 pg (25.0-34.0) 05/23/23 MCHC 30.9 g/dL (32.0-36.0) L 05/23/23 RDW Standard Deviation 65.7 fL (36.4-46.3) H 05/23/23 RDW Coefficient of Variation 16.5 % (11.5-14.5) H 05/23/23 Plt Count 35 K/uL (130-400) L 05/23/23 MPV 12.5 fL (9.4-12.4) H 05/23/23 Nucleated Red Blood Cells % (auto) 0.2 % 05/23 Nucleated RBC Absolute Count (auto) 0.06 K/uL (0.00-0.12) 0 05/23/23 Neutrophils (%) (Auto) 3.3 % 05/23/23 Lymphocytes (%) (Auto) 86.0 % 05/23/23 Monocytes # (Auto) 2.59 K/uL (0.11-0.59) H 05/23/23 Eosinophils # (Auto) 0.01 K/uL (0.00-0.50) 05/23/23 Immature Granulocyte % (Auto) 0.2 % 05/23/23 Neutrophils # (Auto) 0.81 K/uL (1.40-6.50) L* 05/23/23 Lymphocytes # (Auto) 21.23 K/uL (1.20-3.40) H 05/23/23 Monocytes # (Auto) 2.59 K/uL (0.11-0.59) H 05/23/23 Eosinophils # (Auto) 0.01 K/uL (0.00-0.50) 05/23/23 Basophils # (Auto) 0.01 K/uL (0.00-0.20) 05/23/23 Immature Granulocyte # (Auto) 0.04 K/uL (0.01-0.20) 4 Polychromasia 1+ 05/23/23 Hypochromasia Present 05/22/23 Macrocytosis Present 05/22/23 Stomatocytes 2+ 05/23/23 Na 141 mmol/L (136-145) 05/23/23 K 4.3 mmol/L (3.5-5.1) 05/23/23 Cl 99 mmol/L (98-107) 05/23/23 CO2 36 mmol/L (21-32) H 05/23/23 Anion Gap 6 (3-11) 05/23/23 BUN 22 mg/dl (6-23) 05/23/23 Creatinine 1.42 mg/dl (0.6-1.4) H 05/23/23 Estimated GFR ( Amer) 62.7 ml/min 05/23/23 Estimated GFR (Non-Af Amer) 54.1 ml/min 05/23/23 BUN/Creatinine Ratio 15.5 (10-20) 05/23/23 Glu 167 mg/dl (70-99(Fasting)) H 05/23/23 Ca 7.8 mg/dl (8.6-10.3) L 05/23/23 Phosphorus Level 2.7 mg/dl (2.5-4.9) 05/23/23 Total Bilirubin 0.6 mg/dl (0.2-1.0) 05/22/23 Direct Bilirubin 0.1 mg/dl (0-0.2) 05/22/23 AST 20 U/L (13-39) 05/22/23 ALT 16 U/L (7-52) 05/22/23 Alkaline Phosphatase 126 U/L (34-104) H 05/22/23 TP 6.9 gm/dl (6.0-8.3) 05/22/23 Albumin 4.3 gm/dl (3.4-5.0) 05/22/23 Mg 1.6 mg/dl (1.7-2.4) L 05/23/23 04:51 Calcium Level 7.8 mg/dl (8.6-10.3) L 05/23/23 04:51 Prothromb Time International Ratio 1.1 (0.9-1.1) 05/22/23 15:4 2 Venous Blood pH 7.00 (7.36-7.41) L 05/22/23 15:56 Venous Blood Partial Pressure CO2 > 125 mmHg (38-50) H 05/22/23 15:56 Venous Blood Partial Pressure O2 73 mmHg 05/22/23 15:56 Venous Blood HCO3 TNP 05/22/23 15:56 Venous Blood Base Excess TNP 05/22/23 15:56 Venous Blood Oxygen Saturation 92.0 % 05/22/23 15:56 Diagnostic Findings (Past 24 Hours) Chest X-Ray 05/22/23 15:27 SINGLE VIEW CHEST CLINICAL HISTORY: Sepsis. Respiratory failure. FINDINGS: 2 AP, portable, supine chest radiographs are obtained. No prior studies are available for comparison at the time of dictation. The examination is degraded by portable technique, apical lordotic positioning, and patient rotation. An endotracheal tube has been placed. The tip projects approximately 7 cm above the melani. The heart is enlarged. There is pulmonary vascular congestion. There are multifocal bilateral airspace opacities, asymmetrically gr eater on the right. No large pleural effusion or pneumothorax is seen. The bony thorax is grossly intact. IMPRESSION: 1. An endotracheal tube has been placed as above. 2. Cardiomegaly with evidence of congestive failure. 3. There are asymmetric bilateral airspace opacities, right greater than left. This could represent pulmonary edema, and/or multifocal pneumonia. Clinical correlation will be essential and radiographic follow-up to resolution is recommended.. ACT 112: Negative or not required by law. Electronically signed by: Leo Marcial M.D. 05/22/2023 4:[address] 05/22/23 17:02 CT SCAN OF THE BRAIN WITHOUT IV CONTRAST CLINICAL HISTORY: Change in mental status. COMPARISON STUDY: No priors. TECHNIQUE: Unenhanced axial CT scan of the brain is performed from the vertex to the skull base. A dose lowering technique was utilized adhering to the principles of ALARA. FINDINGS: Endotracheal and enteric tubes are noted on the manager treasury tomogram. Brain parenchyma: The brain parenchyma is normal in appearance. There is no hemorrhage, mass effect, or evidence of acute territorial ischemia by CT criteria. Aviles-white matter differentiation is preserved. No extra-axial fluid collection is seen. Ventricles, sulci, cisterns: Normal in configuration. Intracranial vasculature: There is atherosclerotic calcification of the cavernous carotid and vertebral arteries. Calvarium: Unremarkable. Sinuses and mastoids: There is subtotal opacification of the ethmoid sinuses. Moderate mucosal thickening is noted within the sphenoid and maxillary sinuses. Fluid fills the nasopharynx. The mastoid air cells are well pneumatized. Orbits: The bony orbits are grossly intact. IMPRESSION: There is no hemorrhage, mass effect, or evidence of acute territorial ischemia by CT criteria. ACT 112: Negative or not required by law. Electronically signed by: Leo Marcial M.D. 05/22/2023 6:[address] 05/22/23 17:35 CT SCAN OF THE CHEST WITHOUT IV CONTRAST CLINICAL HISTORY: Respiratory failure. COMPARISON STUDY: Chest x-ray dated 05/22/2023. TECHNIQUE: CT scan of the thorax was performed from the thoracic inlet to the upper abdomen. Images are reviewed in the axial, sagittal, and coronal planes. IV contrast was not administered for this examination as per the referring clinician. A dose lowering technique was utilized adhering to the principles of ALARA. CT DOSE: 1739.33 mGy.cm FINDINGS: Thyroid: Imaged portions of the thyroid gland are normal in size and atte nuation. Thoracic aorta: There is atherosclerotic calcification of the thoracic aorta, which is normal in caliber and demonstrates bovine variant arch anatomy. Heart: The heart is enlarged noting trace pericardial effusion. The coronary arteries are densely calcified. There is diminished attenuation of the cardiac blood pool as compared to the myocardium suggesting anemia. Lungs and pleural spaces: An endotracheal term terminates above the melani. There are small right and trace left pleural effusions. Intralobular septal thickening is seen throughout both lungs. Multifocal patchy airspace consolidation and patchy nodular opacities are seen throughout both lungs, asymmetrically greater on the right. There are scattered calcified granulomas. Secretions are noted in the trachea. There is diffuse peribronchial thickening. Lower neck: An enlarged left cervical lymph node is partially visualized. This measures 13 mm in short axis. Mediastinum: There is mediastinal lymphadenopathy. Paratracheal nodes measure up to 1.2 cm short axis. Prevascular nodes measure up to 1.1 cm short axis, and a precarinal node measures up to 1.6 cm short axis. Michelle: There is likely hilar lymphadenopathy. This is not well assessed without IV contrast. Axillae: There is no axillary lymphadenopathy. Upper abdomen: An enteric tube is in place. This extends below the diaphragm and stomach. The spleen is markedly enlarged, measuring at least 19 cm in length. The liver also appears enlarged. There are mildly enlarged upper abdominal lymph nodes. A gastrohepatic node measures up to 11 mm in short axis. Skeletal structures: No lytic or blastic bony lesions are seen. IMPRESSION: 1. Endotracheal and enteric tubes are in place. 2. Cardiomegaly with evidence of congestive failure. 3. Small right and trace left pleural effusions. 4. Multifocal patchy airspace consolidation is seen throughout both lungs, and there are also multifocal patchy nodular airspace opacities. This is asymmetrically greater on the right, and the appearance favors a multifocal pneumonia. Clinical correlation will be essential. A follow-up chest CT in 3-4 months time is recommended to document resolution and reassess the underlying lung parenchyma/pulmonary nodules. 5. There is marked splenomegaly, as well as upper abdominal, mediastinal, and sternoclavicular lymphadenopathy. There is also likely hilar lymphadenopathy. These findings are nonspecific but could be seen with a lymphoproliferative disorder such as lymphoma. 6. The liver also appears enlarged. 7. Additional findings as above. ACT 112: Positive. There are findings on this exam that require communication between the performing entity and the patient following Patient Test Result Information Act ([place] Act 112) guidelines. Electronically signed by: Leo Marcial M.D. 05/22/2023 7:15 PM Chest X-Ray 05/23/23 07:00 XR chest 1V portable CLINICAL HISTORY: Respiratory failure. COMPARISON STUDY: Chest radiograph and chest CT May 22, 2023. FINDINGS: Tip of endotracheal tube is 6.1 cm above the melani. Tip of nasogastric tube is below the lower aspect of this image but at least within the body of the stomach. Cardiomediastinal silhouette is stable. There is no pneumothorax or pleural effusion. Multifocal airspace opacities and interstitial thickening have improved. IMPRESSION: 1. Tip of endotracheal tube 6.1 cm above the melani. 2. Interstitial thickening and multifocal airspace opacities, improved since prior exam. The findings favor multifocal pneumonia. Continued radiographic follow up to ensure resolution is recommended. ACT 112: Negative or not required by law. Electronically signed by: Chepe Laguna M.D. 05/23/2023 8:15 AM I & O Totals 24 Hours 05/22/23 05/23/23 05/24/23 06:59 06:59 06:59 Intake Total 4225.566 / 4225.566 1552.934 / 1552.934 Output Total 425 / 425 Balance 3800.566 / 3800.566 1552.934 / 1552.934 Cumulative 05/22/23 14:45 thru 05/23/23 10:23 Intake Total 5778.500 Output Total 425 Balance 5353.500 RT Ventilator Mngmt (Last Documented) Ventilator Ordered Settings Ventilator Support Mode Assist Control 05/23/23 08:05 Respiratory Rate 24 05/23/23 08:05 Ventilator Tidal Volume 440 05/23/23 08:05 Setting Minute Ventilation 10.1 05/23/23 08:05 Positive End Expiratory 8 05/23/23 08:05 Pressure Fraction of Inspired Oxygen 60 05/23/23 08:05 Machine Comment heater turned on 05/23/23 08:05 Ventilator - PT Measurements Respiratory Rate 24 Exhaled Tidal Volume 434 Minute Ventilation 10.1 Peak Inspiratory Airway 32 Pressure Plateau Pressure 26 Respiratory Cycle Inspiratory: 1:1.8 Expiratory Ratio Inspiratory Phase Time 0.90 End-Tidal CO2 38 Static Lung Compliance 24.11 Dynamic Lung Compliance 18.08 Normal Static Lung Compliance 45.00 Patient Measurements Comment After obtaining ABG results pt rate turned down to 22 per [employer] orders Coding Level of Care Code 74739 CRITICAL CARE 1ST 30-74M Diagnoses Acute hyperkalemia E87.5 Anemia D64.9 Anemia type: unspecified type Chronic lymphocytic leukemia C91.10 Pneumonia J18.9 Laterality: right Lung location: unspecified part of lung Pneumonia type: due to unspecified organism Acute respiratory acidosis J96.02 Respiratory failure J96.01; J96.02 Chronicity: acute Respiratory failure complication: hypoxia and hypercapnia Sepsis A41.9; R65.21; J96.01 Acute respiratory failure type: with hypoxia Sepsis acute organ dysfunction status: with acute organ dysfunction Sepsis type: sepsis due to unspecified organism Severe sepsis acute organ dysfunction type: acute respiratory failure Severe sepsis shock status: with septic shock (2) Anemia Anemia type: unspecified type Qualified Code(s): D64.9 - Anemia, unspecified (4) Pneumonia Laterality: right Lung location: unspecified part of lung Pneumonia type: due to unspecified organism Qualified Code(s): J18.9 - Pneumonia, unspecified organism (6) Respiratory failure Chronicity: acute Respiratory failure complication: hypoxia and hypercapnia Qualified Code(s): J96.01 - Acute respiratory failure with hypoxia; J96.02 - Acute respiratory failure with hypercapnia (7) Sepsis Acute respiratory failure type: with hypoxia Sepsis acute organ dysfunction status: with acute organ dysfunction Sepsis type: sepsis due to unspecified organism Severe sepsis acute organ dysfunction type: acute respiratory failure Severe sepsis shock status: with septic shock Qualified Code(s): A41.9 - S epsis, unspecified organism; R65.21 - Severe sepsis with septic shock; J96.01 - Acute respiratory failure with hypoxia
[2023-05-23] MEDS: PLASMA-LYTE A 1,000 ML IV SCH ×2 (10:26→22:44)
[2023-05-23] MEDS ORDERED: ALBUT/IPRATROP 3MG/0.5MG NEB 3 ML VIAL NEB PRN (10:40)
--- NOTE | 2023-05-23 13:09 | Pharmacy Report ---
Pharmacy PK ABX Note - Date of Service May 23, 2023 - Assessment and Plan Assessment 57 year old M receiving meropenem and vancomycin empirically x72 hours for treatment of ?PNA, sepsis. Positive Entero/Rhino on [employer] PMH: CLL, COPD on home O2, selective AgA+M deficiency, hx MRSA bacteremia w necrotizing PNA in 2020 SCr with notable jump today - discussed w Dr. Easley. Plan to hold off on further vanco for now pending level assessment and dose adjust meropenem slightl y. Plan Vancomycin * Maintenance dose: 1250 mg IV every 12 hours - hold for now * Random level in AM Pharmacy will continue to follow and will adjust dose/frequency as necessary. Thank you. Pharmacy has transitioned to AUC monitoring for vancomycin. AUC/JUANA is the preferred PK/PD target and is associated with decreased risk of nephrotoxicity compared to traditional trough targets.
--- NOTE | 2023-05-23 14:26 | Electrocardiogram Report ---
Test Reason : Blood Pressure : / mmHG Vent. Rate : 110 BPM Atrial Rate : 110 BPM P-R Int : 168 ms QRS Dur : 096 ms QT Int : 326 ms P-R-T Axes : 075 084 062 degrees QTc Int : 441 ms Sinus tachycardia Otherwise normal ECG No previous ECGs available Confirmed by Oleg Nicholson ([id number]) on 05/23/2023 2:25:50 PM Referred By: REFERRED SELF Confirmed By:Oleg Nicholson
[2023-05-23] MEDS: fentaNYL citrate 2,500 MCG/250 ML BAG IV SCH (15:10)
[2023-05-23] MEDS: MIDAZOLAM HCL 125 MG/250 ML BAG IV SCH (18:52)
--- NOTE | 2023-05-23 19:19 | Hospitalist Progress Note ---
Date of Service May 23, 2023 delayed entry date of service noted above Assessment & Plan (1) Acute and chronic respiratory failure: Plan Per LIANNE Contreras's notes with addendum: This is a medically complex 57-year-old male with PMH of COPD, chronic hypoxemic respiratory failure requiring 2-3 L NC with exertion and HS, ongoing tobacco use, chronic right-sided heart failure, CLL, selective deficiency of IgA and M and other medical problems listed below who presents with acute respiratory failure requiring intubation prior to arrival. History of multiple admissions for acute respiratory failure in the setting of multifactorial issues including COPD exacerbation, multifocal pneumonia and decompensated heart failure. In 2020, was admitted here and then transferred for [place] for ongoing treatment of MRSA bacteremia in the setting of necrotizing pneumonia, CLL. Was most recently admitted to [facility] in June 2022. with H. influenzae pneumonia. Acute on chronic hypoxemia and hypercapnic respiratory failure Respiratory acidosis COPD exacerbation URI with enterovirus/rhinovirus Multilobar PNA meeting sepsis criteria Recent URI symptoms and increased O2 needs with EMS intubating in the field [employer] VBG with pH 7, pCO2 >125. ABG pending CXR with cardiomegaly with evidence of congestive failure. There are asymmetric bilateral airspace opacities, right > left. This could represent pulmonary edema, and/or multifocal pneumonia CT chest: 1. Endotracheal and enteric tubes are in place. 2. Cardiomegaly with evidence of congestive failure. 3. Small right and trace left pleural effusions. 4. Multifocal patchy airspace consolidation is seen throughout both lungs, and there are also multifocal patchy nodular airspace opacities. This is asymmetrically greater on the right, and the appearance favors a multifocal pneumonia. Clinical correlation will be essential. A follow-up chest CT in 3-4 months time is recommended to document resolution and reassess the underlying lung parenchyma/pulmonary nodules. 5. There is marked splenomegaly, as well as upper abdominal, mediastinal, and sternoclavicular lymphadenopathy. There is also likely hilar lymphadenopathy. These findings are nonspecific but could be seen with a lymphoproliferative disorder such as lymphoma. 6. The liver also appears enlarged. 7. Additional findings as above. Remains intubated Continue IV antibiotics, steroids Weaning per weft straightener service Anemia, thrombocytopenia Likely secondary to sepsis Received 2 units of packed RBC Monitor CBC Acute kidney injury Creatinine 1.4 Likely secondary to sepsis Continue IV fluids Monitor: Chronic right sided heart failure Home lasix course is 80mg BID, macdonald in place CLL Not currently on chemotherapy, follows with Dr. Ramirez. Missed March appt Thrombocytopenia In setting of CLL. SCDs for now, ICU to add chemical dvt ppx based on repeat platelet counts Hyperkalemia Per Dr. Carrington, patient getting Lokelma after OG tube placement. Repeat EKG Updated daughter Sonal on the phone: [phone] DVT Ppx: SCDs Code status: FULL PCP: Reva Dispo: admitted to ICU Admission and Anticipated Discharge Date Admission Date: May 22, 2023 Subjective Follow-up for respiratory failure, etc. Patient sedated and intubated, not in distress No signs of pain, respiratory distress Status post 2 units of packed RBC No signs of melena hematochezia Discussed with RN No other new issues Review of Systems Review of Systems: all noted and negative except for above Physical Exam Physical Exam: General-sedated, not in distress, breathing with no effort or accessory muscle use Eyes- anicteric Neck- no JVD Lungs-positive mild wheeze bilaterally with rhonchi Heart- normal rate, regular rhythm; no murmurs Abdomen- normal bowel sounds, nondistended, soft, nontender Extremities- no pretibial edema, no calf tenderness Neuro-sedated, intubated Skin- warm & dry Results & Data Results & Data Vital Signs (Past 12 Hours) Vital Signs Temp Pulse Resp BP Pulse Ox O2 Del Method O2 Flow Rate 05/23/23 18:00 36.9 C 93 H 24 96 Mechanical Vent 05/23/23 18:00 127/61 05/23/23 17:00 37.0 C 76 24 95 05/23/23 17:00 115/58 L 05/23/23 16:00 107/63 05/23/23 16:00 36.9 C 80 24 93 05/23/23 16:00 05/23/23 15:09 36.9 C 85 24 122/61 96 05/23/23 15:00 122/61 05/23/23 15:00 36.9 C 84 24 97 05/23/23 14:50 88 25 H 97 05/23/23 14:45 127/52 L 05/23/23 14:45 36.9 C 85 24 97 Mechanical Vent 05/23/23 14:30 118/61 05/23/23 14:30 36.9 C 85 24 97 05/23/23 14:15 114/56 L 05/23/23 14:15 36.9 C 76 24 97 05/23/23 14:00 113/55 L 05/23/23 14:00 36.9 C 77 24 97 05/23/23 13:45 110/56 L 05/23/23 13:45 36.9 C 76 24 97 05/23/23 13:30 37.0 C 78 24 97 05/23/23 13:30 111/56 L 05/23/23 13:15 109/54 L 05/23/23 13:15 37.0 C 80 24 97 05/23/23 13:10 37 C 79 24 111/56 L 97 05/23/23 13:10 37 C 78 24 109/54 L 97 05/23/23 13:00 109/54 L 05/23/23 13:00 36.9 C 82 24 96 05/23/23 12:57 36.9 C 81 24 100 05/23/23 12:57 110/55 L 05/23/23 12:55 36.9 C 81 24 110/55 L 96 05/23/23 12:46 106/53 L 05/23/23 12:46 36.9 C 82 24 96 05/23/23 12:46 36.8 C 79 24 106/53 L 99 05/23/23 12:00 113/60 05/23/23 12:00 36.8 C 86 24 99 05/23/23 12:00 05/23/23 11:39 Mechanical Vent 05/23/23 11:00 37.1 C 91 H 24 114/48 L 98 Room Air 05/23/23 10:45 84 24 96 05/23/23 10:00 37.2 C 82 24 99/51 L 97 Nasal Cannula 2 05/23/23 09:00 37.1 C 85 24 101/51 L 97 Mechanical Vent 05/23/23 08:05 84 24 97 05/23/23 08:00 37.1 C 86 24 95/49 L 97 05/23/23 08:00 05/23/23 08:00 84 FiO2 05/23/23 18:00 50 05/23/23 18:00 05/23/23 17:00 05/23/23 17:00 05/23/23 16:00 05/23/23 16:00 05/23/23 16:00 50 05/23/23 15:09 05/23/23 15:00 05/23/23 15:00 05/23/23 14:50 60 05/23/23 14:45 05/23/23 14:45 60 05/23/23 14:30 05/23/23 14:30 05/23/23 14:15 05/23/23 14:15 05/23/23 14:00 05/23/23 14:00 05/23/23 13:45 05/23/23 13:45 05/23/23 13:30 05/23/23 13:30 05/23/23 13:15 05/23/23 13:15 05/23/23 13:10 05/23/23 13:10 05/23/23 13:00 05/23/23 13:00 05/23/23 12:57 05/23/23 12:57 05/23/23 12:55 05/23/23 12:46 05/23/23 12:46 05/23/23 12:46 05/23/23 12:00 05/23/23 12:00 05/23/23 12:00 60 05/23/23 11:39 60 05/23/23 11:00 05/23/23 10:45 60 05/23/23 10:00 05/23/23 09:00 60 05/23/23 08:05 60 05/23/23 08:00 05/23/23 08:00 60 05/23/23 08:00 all noted and reviewed including below
[2023-05-23 20:51] LABS: Hematocrit (blood only) 22.7 % (42.0-52.0); Hemoglobin 6.9 g/dl (14.0-18.0)
[2023-05-23] MEDS ORDERED: FUROSEMIDE 40 MG/4 ML VIAL IV ONE (21:42)
[2023-05-24] MEDS: fentaNYL citrate 2,500 MCG/250 ML BAG IV SCH ×2 (01:15→08:11)
[2023-05-24] MEDS: MIDAZOLAM HCL 125 MG/250 ML BAG IV SCH (01:15)
[2023-05-24] MEDS: INSULIN ASPART PER UNIT CHARGE SC SCH ×5 (01:23→23:35)
[2023-05-24] MEDS: methylPREDNISolone 40 MG in SYRINGE 0 ML IV SCH ×3 (02:38→20:38)
[2023-05-24] MEDS: MEROPENEM 500 MG in SYRINGE 0 ML IV SCH (05:37)
[2023-05-24 05:45] LABS: iSTAT Arterial Blood Gas HCO3 35 meg/L (19-24); iSTAT Arterial Blood Gas pCO2 54 mmHg (35-46); iSTAT Arterial Blood Gas pH 7.42 (7.35-7.45); iSTAT Arterial Blood Gas pO2 62 mmHg (80-95); iSTAT Carbon Dioxide 36 mmol/L (24-31); iSTAT Hematocrit 23 % (42-52); iSTAT Hemoglobin 7.8 g/dl (14.0-18.0); iSTAT Potassium 5.1 mmol/L (3.3-5.0); iSTAT Sodium 137 mmol/L (135-144)
[2023-05-24 05:47] LABS: BUN Creatinine Ratio 22.7 (10-20); Calcium 7.9 mg/dl (8.6-10.3); Creatinine Clr Calc Pharmacy 65.4 ml/min; Est GFR (African American) 58.6 ml/min; Est GFR (Non-African American) 50.6 ml/min; Magnesium 2.5 mg/dl (1.7-2.4); Phosphorus 3.7 mg/dl (2.5-4.9); Potassium 4.8 mmol/L (3.5-5.1)
[2023-05-24 06:21] LABS: Hematocrit (blood only) 24.5 % (42.0-52.0); Hemoglobin 7.4 g/dl (14.0-18.0); Mean Corpuscular Hemoglobin 31.2 pg (25.0-34.0); Mean Corpuscular Hgb Conc 30.2 g/dL (32.0-36.0); Mean Corpuscular Volume 103.4 fL (80.0-100.0); Mean Platelet Volume 12.9 fL (9.4-12.4); Nucleated RBC # (auto) 0.07 K/uL (0.00-0.12); Nucleated RBC % (auto) 0.2 %; Platelet Count 32 K/uL (130-400); RDW Coefficient of Variation 18.8 % (11.5-14.5); RDW Standard Deviation 70.3 fL (36.4-46.3); Red Blood Count 2.37 M/uL (4.70-6.10); White Blood Count 42.48 K/ul (4.8-10.8)
[2023-05-24 06:43] LABS: Basophils # (auto) 0.12 K/uL (0.00-0.20); Basophils % (auto) 0.3 %; Eosinophils # (auto) 0.01 K/uL (0.00-0.50); Immature Granulocytes # (auto) 0.08 K/uL (0.01-0.20); Immature Granulocytes % (auto) 0.2 %; Lymphocytes # (auto) 38.05 K/uL (1.20-3.40); Lymphocytes % (auto) 89.6 %; Monocytes # (auto) 3.22 K/uL (0.11-0.59); Monocytes % (auto) 7.6 %; Neutrophils % (auto) 2.3 %; RBC Morphology Unremarkable; Reticulocyte % 0.9 % (0.5-2.0); Reticulocytes # 0.02 10^6/uL (0.02-0.10)
[2023-05-24] MEDS ORDERED: VANCOMYCIN HCL 1,500 MG in SODIUM CHLORIDE 0.9% 500 ML IV STA (07:17)
--- NOTE | 2023-05-24 07:23 | XRay Report ---
SINGLE VIEW CHEST CLINICAL HISTORY: Respiratory failure. FINDINGS: An AP, portable, upright chest radiograph is compared to study dated 05/23/2023 and correlate d with chest CT dated 05/22/2023. The examination is degraded by portable technique and apical lordot ic positioning. Endotracheal and enteric tubes are unchanged in position. The heart is enlarged notin g atherosclerotic calcification of the thoracic aorta. There is pulmonary vascular congestion. Emphys antoinette and chronic interstitial thickening is similar to previous. Bilateral airspace opacities persist. No large pleural effusion or pneumothorax is seen. The bony thorax is grossly intact. IMPRESSION: 1. Stable lines and tubes. 2. Cardiomegaly and emphysema with pulmonary vascular congestion. 3. Mild bilateral airspace opacities persist and are similar to yesterday. Continued follow-up to res olution is recommended. ACT 112: Negative or not required by law. Electronically signed by: Leo Marcial M.D. 05/24/2023 7:22 AM
[2023-05-24 07:26] LABS: C Reactive Protein 1.56 mg/dl (0-0.5)
[2023-05-24] MEDS: FORMOTEROL 20 MCG/2 ML VIAL INH SCH ×2 (07:50→20:38)
[2023-05-24] MEDS: BUDESONIDE 0.25 MG/2 ML VIAL (PULMICORT) NEB SCH ×2 (07:50→20:38)
[2023-05-24 07:59] LABS: Ferritin 178.8 ng/ml (8-388)
[2023-05-24] MEDS: fentaNYL BOLUS from BAG IV PRN (08:13)
[2023-05-24 08:39] LABS: Folate (Folic Acid),Ser orPlas 6.78 ng/ml (>5.38)
--- NOTE | 2023-05-24 09:29 | Critical Care Progress Note ---
Date of Service May 24, 2023 Assessment & Plan (1) Acute respiratory acidosis: (2) Pneumonia: (3) Chronic lymphocytic leukemia: (4) Anemia: (5) Acute hyperkalemia: (6) Sepsis: Plan Reason Critically Ill: 57-year-old male past medical history of CML not on any treatment, HFrEF, COPD on oxygen, GERD was brought in intubated for respiratory distress Neuro - [facility] ICU: Negative Liberated from ventilator Cardiac - -- HFrEF Compensated BNP 76 Respiratory - -- VDRF Multifactorial Likely secondary to COPD exacerbation secondary to entero-/rhinovirus -Respiratory bio fire negative for everything except for entero-/rhinovirus Procalcitonin 0.12 -MRSA nasal negative, will discontinue vancomycin treat with empiric antibiotics given significant structural lung disease: Respiratory fluoroquinolone -Levaquin 750 mg p.o. 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 On Advair and Spiriva at home -Discontinue IV steroids transition to prednisone: Taper ordered GI - -- History of GERD Continue with pantoprazole RENAL/LYTES - --Hyperkalemia: improving -- Metabolic alkalosis: resolved Likely compensation to chronic respiratory acidosis as well as the use of Lasix - -- Will put Ramon catheter in ENDO - -- ICU hypoglycemia protocol HEME - -- History of CML Not on any chemotherapy right now - 2 Unit PRBCs Peripheral smear: reviewed --Macrocytic anemia MCV 117 Monitor H&H --Thrombocytopenia Continue to monitor ID - -- Multilobar pneumonia Mostly affecting the right side Procalcitonin 0.12 Follow-up nasal MRSA - de-escalate to levaquin --Prophylaxis VTE: IPC GI: Pantoprazole Lines: Peripheral Diet: speech therapy consult I have personally spent 35 minutes of critical care time in the direct management of this patient. This is a life/limb threatening event. This includes time spent evaluating patient, direct bedside care, chart review, placing orders, interpretation of diagnostic studies, discussion with consultants, patient, and family members, as well as other required patient management activities. This time is exclusive of all separately billable procedures, and teaching time and separate from and in addition to any other critical care service time. Admission and Anticipated Discharge Date Admission Date: May 22, 2023 Subjective No overnight events Review of Systems Review of Systems: Unobtainable due to endotracheal tube Physical Exam 2 Physical Exam: General: Following two-step commands. nontoxic. Skin: Warm, dry, Head: Atraumatic Ears, nose, mouth and throat: airway obscured by endotracheal tube Cardiovascular: Normal peripheral perfusion Respiratory: Ventilator settings reviewed Gastrointestinal: Non distended Musculoskeletal: No deformity Results & Data Results & Data Vital Signs (Past 12 Hours) Vital Signs Temp Pulse Resp BP Pulse Ox Pulse Ox O2 Del Method 05/24/23 06:30 37.0 C 65 24 95 Mechanical Vent 05/24/23 06:00 117/53 L 05/24/23 06:00 36.9 C 69 24 95 Mechanical Vent 05/24/23 05:30 126/62 05/24/23 05:30 36.9 C 72 24 95 Mechanical Vent 05/24/23 05:01 37.0 C 72 24 97 Mechanical Vent 05/24/23 05:01 129/66 05/24/23 05:00 37.0 C 79 24 96 Mechanical Vent 05/24/23 04:30 37.0 C 66 24 96 05/24/23 04:30 115/57 L 05/24/23 04:00 124/56 L 05/24/23 04:00 37.1 C 70 24 96 Mechanical Vent 05/24/23 04:00 97 05/24/23 04:00 05/24/23 03:30 37.0 C 66 24 97 Mechanical Vent 05/24/23 03:30 118/53 L 05/24/23 03:00 37.0 C 68 24 97 05/24/23 03:00 115/54 L 05/24/23 02:34 77 24 96 05/24/23 02:30 117/62 05/24/23 02:30 37.0 C 72 24 99 Mechanical Vent 05/24/23 02:00 36.9 C 67 24 95 Mechanical Vent 05/24/23 02:00 113/55 L 05/24/23 01:30 36.9 C 76 24 95 Mechanical Vent 05/24/23 01:30 114/56 L 05/24/23 01:15 36.8 C 74 24 115/68 95 05/24/23 01:02 36.8 C 83 24 94 05/24/23 00:45 36.8 C 90 24 05/24/23 00:45 130/68 05/24/23 00:30 174/82 H 05/24/23 00:30 36.8 C 108 H 24 97 05/24/23 00:27 36.8 C 75 24 122/59 L 95 05/24/23 00:00 157/91 H 05/24/23 00:00 36.8 C 100 H 24 94 05/24/23 00:00 05/24/23 00:00 79 05/23/23 23:52 154/79 H 05/23/23 23:52 36.8 C 102 H 24 94 05/23/23 23:45 80 24 96 05/23/23 23:30 158/85 H 05/23/23 23:30 36.7 C 97 H 24 93 05/23/23 23:29 36.7 C 99 H 24 95 05/23/23 23:29 165/88 H 05/23/23 23:27 36.7 C 90 24 158/85 H 95 05/23/23 23:00 118/79 05/23/23 23:00 36.7 C 84 24 98 05/23/23 22:57 36.6 C 87 24 116/72 96 05/23/23 22:42 36.7 C 90 24 118/79 95 05/23/23 22:41 36.8 C 78 24 117/48 L 96 05/23/23 22:40 117/48 L 05/23/23 22:40 36.8 C 77 24 05/23/23 22:30 36.8 C 80 23 96 05/23/23 22:15 68 05/23/23 22:15 36.8 C 80 24 134/72 98 05/23/23 22:00 36.8 C 85 24 96 05/23/23 22:00 134/72 05/23/23 21:30 36.8 C 77 24 95 O2 Del Method O2 Flow Rate FiO2 05/24/23 06:30 50 05/24/23 06:00 05/24/23 06:00 50 05/24/23 05:30 05/24/23 05:30 50 05/24/23 05:01 50 05/24/23 05:01 05/24/23 05:00 50 05/24/23 04:30 05/24/23 04:30 05/24/23 04:00 05/24/23 04:00 05/24/23 04:00 Mechanical Vent 05/24/23 04:00 50 05/24/23 03:30 05/24/23 03:30 05/24/23 03:00 05/24/23 03:00 05/24/23 02:34 50 05/24/23 02:30 05/24/23 02:30 05/24/23 02:00 05/24/23 02:00 05/24/23 01:30 05/24/23 01:30 05/24/23 01:15 05/24/23 01:02 05/24/23 00:45 05/24/23 00:45 05/24/23 00:30 05/24/23 00:30 05/24/23 00:27 05/24/23 00:00 05/24/23 00:00 05/24/23 00:00 40 05/24/23 00:00 05/23/23 23:52 05/23/23 23:52 05/23/23 23:45 50 05/23/23 23:30 05/23/23 23:30 05/23/23 23:29 05/23/23 23:29 05/23/23 23:27 05/23/23 23:00 05/23/23 23:00 05/23/23 22:57 05/23/23 22:42 05/23/23 22:41 05/23/23 22:40 05/23/23 22:40 05/23/23 22:30 05/23/23 22:15 05/23/23 22:15 05/23/23 22:00 05/23/23 22:00 05/23/23 21:30 Critical Care Results & Data Vital Signs (Past 12 Hours) Vital Signs Temp Pulse Resp BP Pulse Ox Pulse Ox O2 Del Method 05/24/23 06:30 37.0 C 65 24 95 Mechanical Vent 05/24/23 06:00 117/53 L 05/24/23 06:00 36.9 C 69 24 95 Mechanical Vent 05/24/23 05:30 126/62 05/24/23 05:30 36.9 C 72 24 95 Mechanical Vent 05/24/23 05:01 37.0 C 72 24 97 Mechanical Vent 05/24/23 05:01 129/66 05/24/23 05:00 37.0 C 79 24 96 Mechanical Vent 05/24/23 04:30 37.0 C 66 24 96 05/24/23 04:30 115/57 L 05/24/23 04:00 124/56 L 05/24/23 04:00 37.1 C 70 24 96 Mechanical Vent 05/24/23 04:00 97 05/24/23 04:00 05/24/23 03:30 37.0 C 66 24 97 Mechanical Vent 05/24/23 03:30 118/53 L 05/24/23 03:00 37.0 C 68 24 97 05/24/23 03:00 115/54 L 05/24/23 02:34 77 24 96 05/24/23 02:30 117/62 05/24/23 02:30 37.0 C 72 24 99 Mechanical Vent 05/24/23 02:00 36.9 C 67 24 95 Mechanical Vent 05/24/23 02:00 113/55 L 05/24/23 01:30 36.9 C 76 24 95 Mechanical Vent 05/24/23 01:30 114/56 L 05/24/23 01:15 36.8 C 74 24 115/68 95 05/24/23 01:02 36.8 C 83 24 94 05/24/23 00:45 36.8 C 90 24 05/24/23 00:45 130/68 05/24/23 00:30 174/82 H 05/24/23 00:30 36.8 C 108 H 24 97 05/24/23 00:27 36.8 C 75 24 122/59 L 95 05/24/23 00:00 157/91 H 05/24/23 00:00 36.8 C 100 H 24 94 05/24/23 00:00 05/24/23 00:00 79 05/23/23 23:52 154/79 H 05/23/23 23:52 36.8 C 102 H 24 94 05/23/23 23:45 80 24 96 05/23/23 23:30 158/85 H 05/23/23 23:30 36.7 C 97 H 24 93 05/23/23 23:29 36.7 C 99 H 24 95 05/23/23 23:29 165/88 H 05/23/23 23:27 36.7 C 90 24 158/85 H 95 05/23/23 23:00 118/79 05/23/23 23:00 36.7 C 84 24 98 05/23/23 22:57 36.6 C 87 24 116/72 96 05/23/23 22:42 36.7 C 90 24 118/79 95 05/23/23 22:41 36.8 C 78 24 117/48 L 96 05/23/23 22:40 117/48 L 05/23/23 22:40 36.8 C 77 24 05/23/23 22:30 36.8 C 80 23 96 05/23/23 22:15 68 05/23/23 22:15 36.8 C 80 24 134/72 98 05/23/23 22:00 36.8 C 85 24 96 05/23/23 22:00 134/72 05/23/23 21:30 36.8 C 77 24 95 O2 Del Method O2 Flow Rate FiO2 05/24/23 06:30 50 05/24/23 06:00 05/24/23 06:00 50 05/24/23 05:30 05/24/23 05:30 50 05/24/23 05:01 50 05/24/23 05:01 05/24/23 05:00 50 05/24/23 04:30 05/24/23 04:30 05/24/23 04:00 05/24/23 04:00 05/24/23 04:00 Mechanical Vent 05/24/23 04:00 50 05/24/23 03:30 05/24/23 03:30 05/24/23 03:00 05/24/23 03:00 05/24/23 02:34 50 05/24/23 02:30 05/24/23 02:30 05/24/23 02:00 05/24/23 02:00 05/24/23 01:30 05/24/23 01:30 05/24/23 01:15 05/24/23 01:02 05/24/23 00:45 05/24/23 00:45 05/24/23 00:30 05/24/23 00:30 05/24/23 00:27 05/24/23 00:00 05/24/23 00:00 05/24/23 00:00 40 05/24/23 00:00 05/23/23 23:52 05/23/23 23:52 05/23/23 23:45 50 05/23/23 23:30 05/23/23 23:30 05/23/23 23:29 05/23/23 23:29 05/23/23 23:27 05/23/23 23:00 05/23/23 23:00 05/23/23 22:57 05/23/23 22:42 05/23/23 22:41 05/23/23 22:40 05/23/23 22:40 05/23/23 22:30 05/23/23 22:15 05/23/23 22:15 05/23/23 22:00 05/23/23 22:00 05/23/23 21:30 Lab & Micro Results (Past 24 Hours) RBC 2.37 M/uL (4.70-6.10) L 05/24/23 WBC 42.48 K/ul (4.8-10.8) H* 05/24/23 Hgb 7.4 g/dl (14.0-18.0) L 05/24/23 Hct 24.5 % (42.0-52.0) L 05/24/23 MCV 103.4 fL (80.0-100.0) H 05/24/23 MCH 31.2 pg (25.0-34.0) 05/24/23 MCHC 30.2 g/dL (32.0-36.0) L 05/24/23 RDW Standard Deviation 70.3 fL (36.4-46.3) H 05/24/23 RDW Coefficient of Variation 18.8 % (11.5-14.5) H 05/24/23 Plt Count 32 K/uL (130-400) L 05/24/23 MPV 12.9 fL (9.4-12.4) H 05/24/23 Nucleated Red Blood Cells % (auto) 0.2 % 05/24 Nucleated RBC Absolute Count (auto) 0.07 K/uL (0.00-0.12) 0 05/24/23 Neutrophils (%) (Auto) 2.3 % 05/24/23 Lymphocytes (%) (Auto) 89.6 % 05/24/23 Monocytes # (Auto) 3.22 K/uL (0.11-0.59) H 05/24/23 Eosinophils # (Auto) 0.01 K/uL (0.00-0.50) 05/24/23 Immature Granulocyte % (Auto) 0.2 % 05/24/23 Neutrophils # (Auto) 1.00 K/uL (1.40-6.50) L 05/24/23 Lymphocytes # (Auto) 38.05 K/uL (1.20-3.40) H 05/24/23 Monocytes # (Auto) 3.22 K/uL (0.11-0.59) H 05/24/23 Eosinophils # (Auto) 0.01 K/uL (0.00-0.50) 05/24/23 Basophils # (Auto) 0.12 K/uL (0.00-0.20) 05/24/23 Immature Granulocyte # (Auto) 0.08 K/uL (0.01-0.20) 4 Red Blood Cell Morphology Unremarkable 05/24/23 Na 140 mmol/L (136-145) 05/24/23 K 4.8 mmol/L (3.5-5.1) 05/24/23 Cl 99 mmol/L (98-107) 05/24/23 CO2 36 mmol/L (21-32) H 05/24/23 Anion Gap 5 (3-11) 05/24/23 BUN 34 mg/dl (6-23) H 05/24/23 Creatinine 1.50 mg/dl (0.6-1.4) H 05/24/23 Estimated GFR ( Amer) 58.6 ml/min 05/24/23 Estimated GFR (Non-Af Amer) 50.6 ml/min 05/24/23 BUN/Creatinine Ratio 22.7 (10-20) H 05/24/23 Glu 115 mg/dl (70-99(Fasting)) H 05/24/23 Ca 7.9 mg/dl (8.6-10.3) L 05/24/23 Phosphorus Level 3.7 mg/dl (2.5-4.9) 05/24/23 Lactate Dehydrogenase 140 U/L (86-244) 05/24/23 Mg 2.5 mg/dl (1.7-2.4) H 05/24/23 04:10 Calcium Level 7.9 mg/dl (8.6-10.3) L 05/24/23 04:10 Microbiology 05/22/23 15:56 Aerobic Blood Culture - Preliminary Blood No growth in Aerobic bottle after 24 hours. Anaerobic Blood Culture - Final 05/22/23 15:56 Aerobic Blood Culture - Preliminary Blood No growth in Aerobic bottle after 24 hours. Anaerobic Blood Culture - Preliminary No growth in Anaerobic bottle after 24 hours. 05/23/23 Unknown Gram Stain - Final Sputum,Vent Suction Diagnostic Findings (Past 24 Hours) Chest X-Ray 05/22/23 15:27 SINGLE VIEW CHEST CLINICAL HISTORY: Sepsis. Respiratory failure. FINDINGS: 2 AP, portable, supine chest radiographs are obtained. No prior studies are available for comparison at the time of dictation. The examination is degraded by portable technique, apical lordotic positioning, and patient rotation. An endotracheal tube has been placed. The tip projects approximately 7 cm above the melani. The heart is enlarged. There is pulmonary vascular congestion. There are multifocal bilateral airspace opacities, asymmetrically greater on the right. No large pleural effusion or pneumothorax is seen. The bony thorax is grossly intact. IMPRESSION: 1. An endotracheal tube has been placed as above. 2. Cardiomegaly with evidence of congestive failure. 3. There are asymmetric bilateral airspace opacities, right greater than left. This could represent pulmonary edema, and/or multifocal pneumonia. Clinical correlation will be essential and radiographic follow-up to resolution is recommended.. ACT 112: Negative or not required by law. Electronically signed by: Leo Marcial M.D. 05/22/2023 4:[address] 05/22/23 17:02 CT SCAN OF THE BRAIN WITHOUT IV CONTRAST CLINICAL HISTORY: Change in mental status. COMPARISON STUDY: No priors. TECHNIQUE: Unenhanced axial CT scan of the brain is performed from the vertex to the skull base. A dose lowering technique was utilized adhering to the principles of ALARA. FINDINGS: Endotracheal and enteric tubes are noted on the buyer intern tomogram. Brain parenchyma: The brain parenchyma is normal in appearance. There is no hemorrhage, mass effect, or evidence of acute territorial ischemia by CT criteria. Aviles-white matter differentiation is preserved. No extra-axial fluid collection is seen. Ventricles, sulci, cisterns: Normal in configuration. Intracranial vasculature: There is atherosclerotic calcification of the cavernous carotid and vertebral arteries. Calvarium: Unremarkable. Sinuses and mastoids: There is subtotal opacification of the ethmoid sinuses. Moderate mucosal thickening is noted within the sphenoid and maxillary sinuses. Fluid fills the nasopharynx. The mastoid air cells are well pneumatized. Orbits: The bony orbits are grossly intact. IMPRESSION: There is no hemorrhage, mass effect, or evidence of acute territorial ischemia by CT criteria. ACT 112: Negative or not required by law. Electronically signed by: Leo Marcial M.D. 05/22/2023 6:[address] 05/22/23 17:35 CT SCAN OF THE CHEST WITHOUT IV CONTRAST CLINICAL HISTORY: Respiratory failure. COMPARISON STUDY: Chest x-ray dated 05/22/2023. TECHNIQUE: CT scan of the thorax was performed from the thoracic inlet to the upper abdomen. Images are reviewed in the axial, sagittal, and coronal planes. IV contrast was not administered for this examination as per the referring clinician. A dose lowering technique was utilized adhering to the principles of ALARA. CT DOSE: 1739.33 mGy.cm FINDINGS: Thyroid: Imaged portions of the thyroid gland are normal in size and attenuation. Thoracic aorta: There is atherosclerotic calcification of the thoracic aorta, which is normal in caliber and demonstrates bovine variant arch anatomy. Heart: The heart is enlarged noting trace pericardial effusion. The coronary arteries are densely calcified. There is diminished attenuation of the cardiac blood pool as compared to the myocardium suggesting anemia. Lungs and pleural spaces: An endotracheal term terminates above the melani. There are small right and trace left pleural effusions. Intralobular septal thickening is seen throughout both lungs. Multifocal patchy airspace consolidation and patchy nodular opacities are seen throughout both lungs, asymmetrically greater on the right. There are scattered calcified granulomas. Secretions are noted in the trachea. There is diffuse peribronchial thickening. Lower neck: An enlarged left cervical lymph node is partially visualized. This measures 13 mm in short axis. Mediastinum: There is mediastinal lymphadenopathy. Paratracheal nodes measure up to 1.2 cm short axis. Prevascular nodes measure up to 1.1 cm short axis, and a precarinal node measures up to 1.6 cm short axis. Michelle: There is likely hilar lymphadenopathy. This is not well assessed without IV contrast. Axillae: There is no axillary lymphadenopathy. Upper abdomen: An enteric tube is in place. This extends below the diaphragm and stomach. The spleen is markedly enlarged, measuring at least 19 cm in length. The liver also appears enlarged. There are mildly enlarged upper abdominal lymph nodes. A gastrohepatic node measures up to 11 mm in short axis. Skeletal structures: No lytic or blastic bony lesions are seen. IMPRESSION: 1. Endotracheal and enteric tubes are in place. 2. Cardiomegaly with evidence of congestive failure. 3. Small right and trace left pleural effusions. 4. Multifocal patchy airspace consolidation is seen throughout both lungs, and there are also multifocal patchy nodular airspace opacities. This is asymmetrically greater on the right, and the appearance favors a multifocal pneumonia. Clinical correlation will be essential. A follow-up chest CT in 3-4 months time is recommended to document resolution and reassess the underlying lung parenchyma/pulmonary nodules. 5. There is marked splenomegaly, as well as upper abdominal, mediastinal, and sternoclavicular lymphadenopathy. There is also likely hilar lymphadenopathy. These findings are nonspecific but could be seen with a lymphoproliferative disorder such as lymphoma. 6. The liver also appears enlarged. 7. Additional findings as above. ACT 112: Positive. There are findings on this exam that require communication between the performing entity and the patient following Patient Test Result Information Act ([place] Act 112) guidelines. Electronically signed by: Leo Marcial M.D. 05/22/2023 7:15 PM Chest X-Ray 05/23/23 07:00 XR chest 1V portable CLINICAL HISTORY: Respiratory failure. COMPARISON STUDY: Chest radiograph and chest CT May 22, 2023. FINDINGS: Tip of endotracheal tube is 6.1 cm above the melani. Tip of nasogast coco tube is below the lower aspect of this image but at least within the body of the stomach. Cardiomediastinal silhouette is stable. There is no pneumothorax or pleural effusion. Multifocal airspace opacities and interstitial thickening have improved. IMPRESSION: 1. Tip of endotracheal tube 6.1 cm above the melani. 2. Interstitial thickening and multifocal airspace opacities, improved since prior exam. The findings favor multifocal pneumonia. Continued radiographic follow up to ensure resolution is recommended. ACT 112: Negative or not required by law. Electronically signed by: Chepe Laguna M.D. 05/23/2023 8:15 AM Chest X-Ray 05/24/23 07:00 SINGLE VIEW CHEST CLINICAL HISTORY: Respiratory failure. FINDINGS: An AP, portable, upright chest radiograph is compared to study dated 05/23/2023 and correlated with chest CT dated 05/22/2023. The examination is degraded by portable technique and apical lordotic positioning. Endotracheal and enteric tubes are unchanged in position. The heart is enlarged noting atherosclerotic calcification of the thoracic aorta. There is pulmonary vascular congestion. Emphysema and chronic interstitial thickening is similar to previous. Bilateral airspace opacities persist. No large pleural effusion or pneumothorax is seen. The bony thorax is grossly intact. IMPRESSION: 1. Stable lines and tubes. 2. Cardiomegaly and emphysema with pulmonary vascular congestion. 3. Mild bilateral airspace opacities persist and are similar to yesterday. Continued follow-up to resolution is recommended. ACT 112: Negative or not required by law. Electronically signed by: Leo Marcial M.D. 05/24/2023 7:22 AM I & O Totals 24 Hours 05/23/23 05/24/23 05/25/23 06:59 06:59 06:59 Intake Total 4225.566 / 4225.566 3638.659 / 3638.659 257.50 / 257.50 Output Total 425 / 425 2019 Balance 3800.566 / 3800.566 1618.659 / 1618.659 257.50 / 257.50 Cumulative 05/22/23 14:45 thru 05/24/23 08:30 Intake Total 8121.725 Output Total 2445 Balance 5676.725 RT Ventilator Mngmt (Last Documented) Ventilator Ordered Settings Ventilator Support Mode Assist Control 05/24/23 04:00 Respiratory Rate 24 05/24/23 06:30 Ventilator Tidal Volume 440 05/24/23 04:00 Setting Minute Ventilation 10 05/24/23 02:34 Positive End Expiratory 8 05/24/23 04:00 Pressure Fraction of Inspired Oxygen 50 05/24/23 04:00 Machine Comment Weaned to 50% 05/23/23 14:50 Ventilator - PT Measurements Respiratory Rate 24 Exhaled Tidal Volume 441 Minute Ventilation 10 Peak Inspiratory Airway 38 Pressure Plateau Pressure 31 Respiratory Cycle Inspiratory: 1:1.8 Expiratory Ratio Inspiratory Phase Time 0.90 End-Tidal CO2 36 Static Lung Compliance 19.17 Dynamic Lung Compliance 14.70 Normal Static Lung Compliance 44.00 Patient Measurements Comment Sputum obtained Coding Level of Care Code 65324 CRITICAL CARE 1ST 30-74M Diagnoses Acute respiratory acidosis J96.02 Pneumonia J18.9 Laterality: right Lung location: unspecified part of lung Pneumonia type: due to unspecified organism Chronic lymphocytic leukemia C91.10 Anemia D64.9 Anemia type: unspecified type Acute hyperkalemia E87.5 Sepsis A41.9; R65.21; J96.01 Acute respiratory failure type: with hypoxia Sepsis acute organ dysfunction status: with acute organ dysfunction Sepsis type: sepsis due to unspecified organism Severe sepsis acute organ dysfunction type: acute respiratory failure Severe sepsis shock status: with septic shock (2) Pneumonia Laterality: right Lung location: unspecified part of lung Pneumonia type: due to unspecified organism Qualified Code(s): J18.9 - Pneumonia, unspecified organism (4) Anemia Anemia type: unspecified type Qualified Code(s): D64.9 - Anemia, unspecified (6) Sepsis Acute respiratory failure type: with hypoxia Sepsis acute organ dysfunction status: with acute organ dysfunction Sepsis type: sepsis due to unspecified organism Severe sepsis acute organ dysfunction type: acute respiratory failure Severe sepsis shock status: with septic shock Qualified Code(s): A41.9 - Sepsis, unspecified organism; R65.21 - Severe sepsis with septic shock; J96.01 - Acute respiratory failure with hypoxia
[2023-05-24] MEDS ORDERED: ROCURONIUM BROMIDE 10 MG/ML 5 ML VIAL IV ONE (10:13)
[2023-05-24] MEDS ORDERED: ETOMIDATE 2 MG/ML 20 ML VIAL IV ONE (10:13)
[2023-05-24] MEDS: levoFLOXacin 750 MG TAB PO SCH (10:51)
[2023-05-24] MEDS ORDERED: RAPID SEQUENCE INDUCTION BAG ONE (11:25)
[2023-05-24] MEDS ORDERED: PROPOFOL BOLUS FROM BAG IV PRN (11:44)
[2023-05-24] MEDS ORDERED: fentaNYL citrate PF 100 MCG/2 ML VIAL IV PRN (11:44)
[2023-05-24] MEDS ORDERED: STAT IV Infusion **Titration per Protocol STA (11:44)
--- NOTE | 2023-05-24 11:51 | Procedure Note ---
Procedure Note Date of Service May 24, 2023 Note Procedure Date: Noted above Procedure: Endotracheal intubation Pre-procedure Diagnosis: Acute hypercapnic respiratory failure Post-procedure Diagnosis: same as above Prior to Procedure: Informed Consent: emergent Attending Staff: Shahid Easley DO The identity of the patient was confirmed and a bedside time out was performed. Description of Procedure: Patient was evaluated and required intubation for impending respiratory failure. The patient was prepared in the usual fashion. A 4 video laryngoscope was used. A 7.5 mm inner diameter endotrachial tube was placed endotracheally to 23 cm at the gum ridge. A grade 1 view was obtained. The endotracheal tube was noted to pass through the vocal cords. Chest rise was bilateral. Bilateral breath sounds were heard without air sounds in the abdomen. Mist was noted in the endotracheal tube. End-tidal CO2 measurement was positive. Chest x-ray shows proper endotracheal tube placement. Complications: None Findings: Not applicable Specimens: Not applicable Estimated blood loss: Zero Coding
[2023-05-24] MEDS: propofoL 1,000 MG/100 ML VIAL IV SCH ×5 (12:09→23:59)
[2023-05-24] MEDS: PLASMA-LYTE A 1,000 ML IV SCH ×2 (12:16→23:50)
--- NOTE | 2023-05-24 12:45 | XRay Report ---
SINGLE VIEW CHEST CLINICAL HISTORY: Respiratory failure. FINDINGS: An AP, portable, upright chest radiograph is compared to study performed earlier the same d ay 05/24/2023 and correlated with chest CT dated 05/22/2023. The examination is degraded by portable te chnique and apical lordotic positioning. Endotracheal and enteric tubes are unchanged in position. Th e heart is enlarged noting atherosclerotic calcification of the thoracic aorta. There is pulmonary va scular congestion. Emphysema and chronic interstitial thickening is similar to previous. Bilateral ai rspace opacities persist. No large pleural effusion or pneumothorax is seen. The bony thorax is gross ly intact. IMPRESSION: 1. Stable lines and tubes. 2. Cardiomegaly and emphysema with pulmonary vascular congestion. 3. Mild bilateral airspace opacities persist and are similar to today's earlier examination. Continue d follow-up to resolution is recommended. ACT 112: Negative or not required by law. Electronically signed by: Leo Marcial M.D. 05/24/2023 12:43 PM
[2023-05-24] MEDS: fentaNYL citrate PF 100 MCG/2 ML VIAL IV PRN ×4 (14:40→23:51)
--- NOTE | 2023-05-24 20:06 | Hospitalist Progress Note ---
Date of Service May 24, 2023 Assessment & Plan (1) Acute and chronic respiratory failure: Plan Per LIANNE Sravani Contreras's notes with addendum: This is a medically complex 57-year-old male with PMH of COPD, chronic hypoxemic respiratory failure requiring 2-3 L NC with exertion and HS, ongoing tobacco use, chronic right-sided heart failure, CLL, selective deficiency of IgA and M and other medical problems listed below who presents with acute respiratory failure requiring intubation prior to arrival. History of multiple admissions for acute respiratory failure in the setting of multifactorial issues including COPD exacerbation, multifocal pneumonia and decompensated heart failure. In 2020, was admitted here and then transferred for [place] for ongoing treatment of MRSA bacteremia in the setting of necrotizing pneumonia, CLL. Was most recently admitted to [facility] in June 2022. with H. influenzae pneumonia. Acute on chronic hypoxemia and hypercapnic respiratory failure Respiratory acidosis COPD exacerbation URI with enterovirus/rhinovirus Multilobar PNA meeting sepsis criteria Recent URI symptoms and increased O2 needs with EMS intubating in the field [employer] V[employer] with pH 7, pCO2 >125. ABG pending CXR with cardiomegaly with evidence of congestive failure. There are asymmetric bilateral airspace opacities, right > left. This could represent pulmonary edema, and/or multifocal pneumonia CT chest: 1. Endotracheal and enteric tubes are in place. 2. Cardiomegaly with evidence of congestive failure. 3. Small right and trace left pleural effusions. 4. Multifocal patchy airspace consolidation is seen throughout both lungs, and there are also multifocal patchy nodular airspace opacities. This is asymmetrically greater on the right, and the appearance favors a multifocal pneumonia. Clinical correlation will be essential. A follow-up chest CT in 3-4 months time is recommended to document resolution and reassess the underlying lung parenchyma/pulmonary nodules. 5. There is marked splenomegaly, as well as upper abdominal, mediastinal, and sternoclavicular lymphadenopathy. There is also likely hilar lymphadenopathy. These findings are nonspecific but could be seen with a lymphoproliferative disorder such as lymphoma. 6. The liver also appears enlarged. 7. Additional findings as above. Remains intubated Continue IV antibiotics, steroids Weaning per photogrammetric surveyor service Anemia, thrombocytopenia Likely secondary to sepsis Received 2 units of packed RBC Hemoglobin improved to 7 Platelets trending down, currently 32 No signs of active bleeding Monitor CBC Acute kidney injury Creatinine 1.5 Likely secondary to sepsis Continue IV fluids Monitor Chronic right sided heart failure Home lasix course is 80mg BID, macdonald in place CLL Not currently on chemotherapy, follows with Dr. Ramirez. Missed March appt Thrombocytopenia In setting of CLL. SCDs for now, ICU to add chemical dvt ppx based on repeat platelet counts Hyperkalemia Per Dr. Carrington, patient getting Lokelma after OG tube placement. Repeat EKG Potassium 5.1 DVT Ppx: SCDs Code status: FULL PCP: Reva Dispo: admitted to ICU Admission and Anticipated Discharge Date Admission Date: May 22, 2023 Subjective Follow-up for respiratory failure, etc. Seen sleeping but easily awakened Patient patient seems to be confused Sometimes nods to questions, but seems to be unreliable No signs of active pain, distress Discussed with RN No melena or hematochezia No other issues Review of Systems Review of Systems: all noted and negative except for above Physical Exam Physical Exam: General-awake, not in distress, breathing with no effort or accessory muscle use Eyes- anicteric Neck- no JVD Lungs-positive mild scattered wheezing bilaterally, mild rhonchi Heart- normal rate, regular rhythm; no murmurs Abdomen- normal bowel sounds, nondistended, soft, nontender Extremities- no pretibial edema, no calf tenderness Neuro- alert, no new gross focal neurologic deficits Skin- warm & dry Results & Data Results & Data Vital Signs (Past 12 Hours) Vital Signs Temp Pulse Resp BP Pulse Ox O2 Del Method FiO2 05/24/23 19:45 Mechanical Vent 05/24/23 18:00 37.0 C 74 24 93 05/24/23 17:01 36.9 C 87 20 116/56 L 99 Mechanical Vent 50 05/24/23 17:01 98/67 L 05/24/23 17:00 36.9 C 77 24 98/67 L 95 Mechanical Vent 50 05/24/23 16:00 36.7 C 80 24 120/57 L 96 Mechanical Vent 50 05/24/23 15:30 95 H 25 H 95 50 05/24/23 15:15 36.5 C 83 24 140/63 05/24/23 14:45 36.4 C L 87 24 124/61 98 Mechanical Vent 50 05/24/23 14:30 36.4 C L 78 24 119/60 97 Mechanical Vent 50 05/24/23 14:15 36.4 C L 72 24 115/59 L 05/24/23 14:00 36.3 C L 74 24 115/60 96 Mechanical Vent 50 05/24/23 13:45 36.3 C L 83 24 117/61 97 05/24/23 13:30 36.3 C L 85 24 117/60 97 Mechanical Vent 50 05/24/23 13:15 36.4 C L 92 H 24 116/62 05/24/23 13:00 36.4 C L 102 H 24 121/63 98 Mechanical Vent 60 05/24/23 12:45 36.4 C L 113 H 24 122/68 96 05/24/23 12:30 36.4 C L 113 H 24 126/70 97 Mechanical Vent 60 05/24/23 12:15 36.4 C L 126 H 24 153/85 H 97 05/24/23 12:15 153/85 H 05/24/23 12:00 36.4 C L 131 H 24 153/86 H 97 Mechanical Vent 60 05/24/23 11:45 36.5 C 140 H 24 164/83 H 96 05/24/23 11:44 36.5 C 141 H 24 175/82 H 96 Mechanical Vent 100 05/24/23 11:35 36.4 C L 142 H 26 H 221/103 H 93 05/24/23 11:31 36.4 C L 144 H 22 225/97 H 96 Mechanical Vent 100 05/24/23 11:30 134 H 24 98 100 05/24/23 11:00 36.4 C L 127 H 22 177/90 H 85 L BiPAP 40 05/24/23 10:30 36.3 C L 100 H 16 153/83 H 95 CPAP, Mechanical Vent 50 05/24/23 10:11 BiPAP 05/24/23 10:00 36.3 C L 96 H 17 147/74 H 91 BiPAP 40 05/24/23 09:30 36.3 C L 100 H 14 150/71 H 93 BiPAP 40 05/24/23 09:00 36.6 C 108 H 16 148/70 H 95 BiPAP 50 05/24/23 08:40 100 H 16 93 40 05/24/23 08:33 92 H 16 92 50 05/24/23 08:30 37.0 C 114 H 20 146/76 H 95 BiPAP 50 all noted and reviewed including below
[2023-05-25] MEDS: fentaNYL citrate PF 100 MCG/2 ML VIAL IV PRN ×5 (02:45→16:43)
[2023-05-25] MEDS: propofoL 1,000 MG/100 ML VIAL IV SCH ×8 (02:55→23:09)
[2023-05-25 04:49] LABS: BUN Creatinine Ratio 31.1 (10-20); Calcium 8.3 mg/dl (8.6-10.3); Creatinine Clr Calc Pharmacy 75.9 ml/min; Est GFR (African American) 68.4 ml/min; Magnesium 2.9 mg/dl (1.7-2.4); Phosphorus 4.1 mg/dl (2.5-4.9); Potassium 4.7 mmol/L (3.5-5.1)
[2023-05-25] MEDS: INSULIN ASPART PER UNIT CHARGE SC SCH ×3 (05:44→18:48)
[2023-05-25 06:01] LABS: ALC (manual) 39.54 K/uL (1.2-3.4); ANC (manual) 1.65 K/uL (1.4-6.5); Hematocrit (blood only) 22.9 % (42.0-52.0); Hemoglobin 7.1 g/dl (14.0-18.0); Lymphocytes # (manual) 39.54 K/uL (1.2-3.4); Lymphocytes % (manual) 96 %; Mean Corpuscular Hemoglobin 32.1 pg (25.0-34.0); Mean Corpuscular Volume 103.6 fL (80.0-100.0); Mean Platelet Volume 12.7 fL (9.4-12.4); Neutrophils # (manual) 1.65 K/uL (1.40-6.50); Neutrophils % (manual) 4 %; Nucleated RBC # (auto) 0.05 K/uL (0.00-0.12); Nucleated RBC % (auto) 0.1 %; Platelet Count 33 K/uL (130-400); RDW Coefficient of Variation 18.2 % (11.5-14.5); RDW Standard Deviation 67.7 fL (36.4-46.3); Red Blood Count 2.21 M/uL (4.70-6.10); Stomatocytes 2+
[2023-05-25 06:06] LABS: White Blood Count 41.19 K/ul (4.8-10.8)
[2023-05-25] MEDS ORDERED: SODIUM CHLORIDE 0.9% 250 ML IV PRN (06:55)
--- NOTE | 2023-05-25 06:57 | Critical Care Progress Note ---
Date of Service May 25, 2023 Assessment & Plan (1) Acute respiratory acidosis: (2) Pneumonia: (3) Chronic lymphocytic leukemia: (4) Anemia: (5) Acute hyperkalemia: (6) Sepsis: Plan Reason Critically Ill: 57-year-old male past medical history of CML not on any treatment, HFrEF, COPD on oxygen, GERD was brought in intubated for respiratory distress Neuro - [facility] ICU: Negative Propofol and fentanyl for sedation Cardiac - -- HFrEF Compensated BNP 76 Respiratory - -- VDRF Multifactorial Likely secondary to COPD exacerbation secondary to entero-/rhinovirus -Respiratory bio fire negative for everything except for entero-/rhinovirus Initial intubation 05/22 Extubated /2 Reintubation secondary to hypercapnic respiratory failure /2 -Tolerating pressure support ventilation will give extended trial to evaluate for hypercapnic failure if normal will proceed with extubation today -Tolerated extended SBT, VBG mild hypercapnia at pCO2 65; very encouraging extubation parameters: RSBI 24 respiratory rate 12, negative inspiratory force 22: Extubated to BiPAP 14/10 backup rate 18 -We had a discussion regarding possible need for tracheostomy should the patient fail. He is comfortable with proceeding should it be needed, he does not want to entertain palliative -Patient desired to have mask removed and attempt to ease, mask was off for about 10 minutes became acutely hypercapnic and agitated recheck VBG pCO2 75 and became somnolent requiring reintubation, plan to discuss with the patient's daughter and the patient's after his pCO2 normalizes while on the ventilator with regard to proceeding with tracheostomy given 2 failures in the setting of encouraging extubation parameters and adequate blood gas while on minimal ventilator settings, and adequate ventilatory parameters while on noninvasive mechanical ventilation. Procalcitonin 0.12 -MRSA nasal negative, will discontinue vancomycin treat with empiric antibiotics given significant structural lung disease: Respiratory fluoroquinolone -Levaquin 750 mg p.o. 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 On Advair and Spiriva at home -Discontinue IV steroids transition to prednisone: Taper ordered GI - -- History of GERD Continue with pantoprazole RENAL/LYTES - --Hyperkalemia: improving -- Metabolic alkalosis: resolved Likely compensation to chronic respiratory acidosis as well as the use of Lasix - -- Ramon catheter to monitor I's and O's ENDO - -- ICU hypoglycemia protocol HEME - -- History of CML Not on any chemotherapy right now - 2 Unit PRBCs -Additional units of packed red blood cells Peripheral smear: reviewed --Macrocytic anemia MCV 117 Monitor H&H --Thrombocytopenia Continue to monitor ID - -- Multilobar pneumonia Mostly affecting the right side Procalcitonin 0.12 Follow-up nasal MRSA - de-escalate to levaquin --Prophylaxis VTE: IPC GI: Pantoprazole Lines: Peripheral Diet: speech therapy consult reviewed Admission and Anticipated Discharge Date Admission Date: May 22, 2023 Supervising Physician Co-Signing Physician Notes I have personally spent 80 minutes of critical care time in the direct management of this patient. This is a life/limb threatening event. This includes time spent evaluating patient, direct bedside care, chart review, placing orders, interpretation of diagnostic studies, discussion with consultants, patient, and family members, as well as other required patient management activities. This time is exclusive of all separately billable procedures, and teaching time and separate from and in addition to any other critical care service time. Discussed with the patient, patient's daughter and ex- at bedside risks and benefits of percutaneous tracheostomy as well as prognosis of underlying severe COPD. Review of medical records demonstrate patient has a baseline bicarbonate into the 40s. Percutaneous tracheostomy at this junction will limit sedation, allow patient more mobility and allow for facilitation between spontaneous breathing and mechanical ventilation. Consent was obtained please see procedure note for further details. Subjective No overnight events. Resting comfortably, transition to pressure support ventilation Physical Exam Physical Exam: General: Sedated with propofol, arouses and follows commands. nontoxic. Skin: Warm, dry, Head: Atraumatic Ears, nose, mouth and throat: airway obscured by endotracheal tube Cardiovascular: Normal peripheral perfusion Respiratory: Ventilator settings reviewed Gastrointestinal: Non distended Musculoskeletal: No deformity Results & Data Results & Data Vital Signs (Past 12 Hours) Vital Signs Temp Pulse Resp BP Pulse Ox O2 Del Method FiO2 05/25/23 06:00 37.1 C 61 24 96 05/25/23 05:30 37.1 C 61 24 96 05/25/23 05:00 37.2 C 57 L 24 05/25/23 04:30 37.1 C 58 L 24 96 05/25/23 04:00 114/54 L 05/25/23 04:00 37.1 C 63 24 05/25/23 03:30 37.1 C 59 L 24 94 05/25/23 03:00 126/53 L 05/25/23 03:00 37.1 C 65 24 05/25/23 02:58 66 24 97 40 05/25/23 02:30 37.2 C 59 L 24 99 05/25/23 02:23 60 05/25/23 02:00 37.2 C 61 24 05/25/23 02:00 125/55 L 05/25/23 01:30 37.2 C 67 24 99 05/25/23 01:00 123/54 L 05/25/23 01:00 37.3 C 65 24 05/25/23 00:30 37.3 C 64 24 97 05/25/23 00:01 133/61 05/25/23 00:01 37.2 C 72 21 98 05/25/23 00:00 37.2 C 71 24 05/24/23 23:30 37.2 C 70 24 100 05/24/23 23:22 62 24 98 50 05/24/23 23:00 123/52 L 05/24/23 23:00 37.1 C 67 24 97 05/24/23 22:30 37.2 C 64 24 99 05/24/23 22:00 119/54 L 05/24/23 22:00 37.2 C 66 24 05/24/23 21:30 37.2 C 69 24 99 05/24/23 21:00 119/54 L 05/24/23 21:00 37.1 C 75 24 96 05/24/23 20:40 75 24 98 50 05/24/23 20:30 37.1 C 67 24 98 05/24/23 20:00 110/59 L 05/24/23 20:00 37.1 C 71 24 95 05/24/23 19:45 Mechanical Vent 05/24/23 19:30 37.1 C 79 24 98 05/24/23 19:00 37.1 C 70 24 96 05/24/23 19:00 108/54 L Critical Care Results & Data Vital Signs (Past 12 Hours) Vital Signs Temp Pulse Resp BP Pulse Ox O2 Del Method FiO2 05/25/23 06:00 37.1 C 61 24 96 05/25/23 05:30 37.1 C 61 24 96 05/25/23 05:00 37.2 C 57 L 24 05/25/23 04:30 37.1 C 58 L 24 96 05/25/23 04:00 114/54 L 05/25/23 04:00 37.1 C 63 24 05/25/23 03:30 37.1 C 59 L 24 94 05/25/23 03:00 126/53 L 05/25/23 03:00 37.1 C 65 24 05/25/23 02:58 66 24 97 40 05/25/23 02:30 37.2 C 59 L 24 99 05/25/23 02:23 60 05/25/23 02:00 37.2 C 61 24 05/25/23 02:00 125/55 L 05/25/23 01:30 37.2 C 67 24 99 05/25/23 01:00 123/54 L 05/25/23 01:00 37.3 C 65 24 05/25/23 00:30 37.3 C 64 24 97 05/25/23 00:01 133/61 05/25/23 00:01 37.2 C 72 21 98 05/25/23 00:00 37.2 C 71 24 05/24/23 23:30 37.2 C 70 24 100 05/24/23 23:22 62 24 98 50 05/24/23 23:00 123/52 L 05/24/23 23:00 37.1 C 67 24 97 05/24/23 22:30 37.2 C 64 24 99 05/24/23 22:00 119/54 L 05/24/23 22:00 37.2 C 66 24 05/24/23 21:30 37.2 C 69 24 99 05/24/23 21:00 119/54 L 05/24/23 21:00 37.1 C 75 24 96 05/24/23 20:40 75 24 98 50 05/24/23 20:30 37.1 C 67 24 98 05/24/23 20:00 110/59 L 05/24/23 20:00 37.1 C 71 24 95 05/24/23 19:45 Mechanical Vent 05/24/23 19:30 37.1 C 79 24 98 05/24/23 19:00 37.1 C 70 24 96 05/24/23 19:00 108/54 L Lab & Micro Results (Past 24 Hours) RBC 2.21 M/uL (4.70-6.10) L 05/25/23 WBC 41.19 K/ul (4.8-10.8) H* 05/25/23 Hgb 7.1 g/dl (14.0-18.0) L 05/25/23 Hct 22.9 % (42.0-52.0) L 05/25/23 MCV 103.6 fL (80.0-100.0) H 05/25/23 MCH 32.1 pg (25.0-34.0) 05/25/23 MCHC 31.0 g/dL (32.0-36.0) L 05/25/23 RDW Standard Deviation 67.7 fL (36.4-46.3) H 05/25/23 RDW Coefficient of Variation 18.2 % (11.5-14.5) H 05/25/23 Plt Count 33 K/uL (130-400) L 05/25/23 MPV 12.7 fL (9.4-12.4) H 05/25/23 Nucleated Red Blood Cells % (auto) 0.1 % 05/25 Nucleated RBC Absolute Count (auto) 0.05 K/uL (0.00-0.12) 0 05/25/23 ANC 1.65 K/uL (1.4-6.5) 05/25/23 ALC 39.54 K/uL (1.2-3.4) H 05/25/23 Neutrophils % (Manual) 4 % 05/25/23 Lymphocytes % (Manual) 96 % 05/25/23 Neutrophils # (Manual) 1.65 K/uL (1.40-6.50) 05/25/23 Lymphocytes # (Manual) 39.54 K/uL (1.2-3.4) H 05/25/23 Stomatocytes 2+ 05/25/23 Na 139 mmol/L (136-145) 05/25/23 K 4.7 mmol/L (3.5-5.1) 05/25/23 Cl 98 mmol/L (98-107) 05/25/23 CO2 35 mmol/L (21-32) H 05/25/23 Anion Gap 6 (3-11) 05/25/23 BUN 41 mg/dl (6-23) H 05/25/23 Creatinine 1.32 mg/dl (0.6-1.4) 05/25/23 Estimated GFR ( Amer) 68.4 ml/min 05/25/23 Estimated GFR (Non-Af Amer) 59.0 ml/min 05/25/23 BUN/Creatinine Ratio 31.1 (10-20) H 05/25/23 Glu 126 mg/dl (70-99(Fasting)) H 05/25/23 Ca 8.3 mg/dl (8.6-10.3) L 05/25/23 Phosphorus Level 4.1 mg/dl (2.5-4.9) 05/25/23 Mg 2.9 mg/dl (1.7-2.4) H 05/25/23 03:33 Calcium Level 8.3 mg/dl (8.6-10.3) L 05/25/23 03:33 Sim Test NA 05/25/23 10:43 Microbiology 05/22/23 15:56 Aerobic Blood Culture - Preliminary Blood No growth in Aerobic bottle after 48 hours. Anaerobic Blood Culture - Final 05/22/23 15:56 Aerobic Blood Culture - Preliminary Blood No growth in Aerobic bottle after 48 hours. Anaerobic Blood Culture - Preliminary No growth in Anaerobic bottle after 48 hours. 05/23/23 Unknown Gram Stain - Final Sputum,Vent Suction Sputum Culture - Preliminary Pin-point growth present, reincubating. Diagnostic Findings (Past 24 Hours) Chest X-Ray 05/22/23 15:27 SINGLE VIEW CHEST CLINICAL HISTORY: Sepsis. Respiratory failure. FINDINGS: 2 AP, portable, supine chest radiographs are obtained. No prior studies are available for comparison at the time of dictation. The examination is degraded by portable technique, apical lordotic positioning, and patient rotation. An endotracheal tube has been placed. The tip projects approximately 7 cm above the melani. The heart is enlarged. There is pulmonary vascular congestion. There are multifocal bilateral airspace opacities, asymmetrically greater on the right. No large pleural effusion or pneumothorax is seen. The bony thorax is grossly intact. IMPRESSION: 1. An endotracheal tube has been placed as above. 2. Cardiomegaly with evidence of congestive failure. 3. There are asymmetric bilateral airspace opacities, right greater than left. This could represent pulmonary edema, and/or multifocal pneumonia. Clinical correlation will be essential and radiographic follow-up to resolution is recommended.. ACT 112: Negative or not required by law. Electronically signed by: Leo Marcial M.D. 05/22/2023 4:[address] 05/22/23 17:02 CT SCAN OF THE BRAIN WITHOUT IV CONTRAST CLINICAL HISTORY: Change in mental status. COMPARISON STUDY: No priors. TECHNIQUE: Unenhanced axial CT scan of the brain is performed from the vertex to the skull base. A dose lowering technique was utilized adhering to the principles of ALARA. 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 Brain parenchyma: The brain parenchyma is normal in appearance. There is no hemorrhage, mass effect, or evidence of acute territorial ischemia by CT criteria. Aviles-white matter differentiation is preserved. No extra-axial fluid collection is seen. Ventricles, sulci, cisterns: Normal in configuration. Intracranial vasculature: There is atherosclerotic calcification of the cavernous carotid and vertebral arteries. Calvarium: Unremarkable. Sinuses and mastoids: There is subtotal opacification of the ethmoid sinuses. Moderate mucosal thickening is noted within the sphenoid and maxillary sinuses. Fluid fills the nasopharynx. The mastoid air cells are well pneumatized. Orbits: The bony orbits are grossly intact. IMPRESSION: There is no hemorrhage, mass effect, or evidence of acute territorial ischemia by CT criteria. ACT 112: Negative or not required by law. Electronically signed by: Leo Marcial M.D. 05/22/2023 6:[address] 05/22/23 17:35 CT SCAN OF THE CHEST WITHOUT IV CONTRAST CLINICAL HISTORY: Respiratory failure. COMPARISON STUDY: Chest x-ray dated 05/22/2023. TECHNIQUE: CT scan of the thorax was performed from the thoracic inlet to the upper abdomen. Images are reviewed in the axial, sagittal, and coronal planes. IV contrast was not administered for this examination as per the referring clinician. A dose lowering technique was utilized adhering to the principles of ALARA. CT DOSE: 1739.33 mGy.cm FINDINGS: Thyroid: Imaged portions of the thyroid gland are normal in size and attenuation. Thoracic aorta: There is atherosclerotic calcification of the thoracic aorta, which is normal in caliber and demonstrates bovine variant arch anatomy. Heart: The heart is enlarged noting trace pericardial effusion. The coronary a rteries are densely calcified. There is diminished attenuation of the cardiac blood pool as compared to the myocardium suggesting anemia. Lungs and pleural spaces: An endotracheal term terminates above the melani. There are small right and trace left pleural effusions. Intralobular septal thickening is seen throughout both lungs. Multifocal patchy airspace consolidation and patchy nodular opacities are seen throughout both lungs, asymmetrically greater on the right. There are scattered calcified granulomas. Secretions are noted in the trachea. There is diffuse peribronchial thickening. Lower neck: An enlarged left cervical lymph node is partially visualized. This measures 13 mm in short axis. Mediastinum: There is mediastinal lymphadenopathy. Paratracheal nodes measure up to 1.2 cm short axis. Prevascular nodes measure up to 1.1 cm short axis, and a precarinal node measures up to 1.6 cm short axis. Michelle: There is likely hilar lymphadenopathy. This is not well assessed without IV contrast. Axillae: There is no axillary lymphadenopathy. Upper abdomen: An enteric tube is in place. This extends below the diaphragm and stomach. The spleen is markedly enlarged, measuring at least 19 cm in length. The liver also appears enlarged. There are mildly enlarged upper abdominal lymph nodes. A gastrohepatic node measures up to 11 mm in short axis. Skeletal structures: No lytic or blastic bony lesions are seen. IMPRESSION: 1. Endotracheal and enteric tubes are in place. 2. Cardiomegaly with evidence of congestive failure. 3. Small right and trace left pleural effusions. 4. Multifocal patchy airspace consolidation is seen throughout both lungs, and there are also multifocal patchy nodular airspace opacities. This is asymmetrically greater on the right, and the appearance favors a multifocal pneumonia. Clinical correlation will be essential. A follow-up chest CT in 3-4 months time is recommended to document resolution and reassess the underlying lung parenchyma/pulmonary nodules. 5. There is marked splenomegaly, as well as upper abdominal, mediastinal, and sternoclavicular lymphadenopathy. There is also likely hilar lymphadenopathy. These findings are nonspecific but could be seen with a lymphoproliferative disorder such as lymphoma. 6. The liver also appears enlarged. 7. Additional findings as above. ACT 112: Positive. There are findings on this exam that require communication between the performing entity and the patient following Patient Test Result Information Act ([place] Act 112) guidelines. Electronically signed by: Leo Marcial M.D. 05/22/2023 7:15 PM Chest X-Ray 05/23/23 07:00 XR chest 1V portable CLINICAL HISTORY: Respiratory failure. COMPARISON STUDY: Chest radiograph and chest CT May 22, 2023. FINDINGS: Tip of endotracheal tube is 6.1 cm above the melani. Tip of nasogastric tube is below the lower aspect of this image but at least within the body of the stomach. Cardiomediastinal silhouette is stable. There is no pneumothorax or pleural effusion. Multifocal airspace opacities and interstitial thickening have improved. IMPRESSION: 1. Tip of endotracheal tube 6.1 cm above the melani. 2. Interstitial thickening and multifocal airspace opacities, improved since prior exam. The findings favor multifocal pneumonia. Continued radiographic follow up to ensure resolution is recommended. ACT 112: Negative or not required by law. Electronically signed by: Chepe Laguna M.D. 05/23/2023 8:15 AM Chest X-Ray 05/24/23 07:00 SINGLE VIEW CHEST CLINICAL HISTORY: Respiratory failure. FINDINGS: An AP, portable, upright chest radiograph is compared to study dated 05/23/2023 and correlated with chest CT dated 05/22/2023. The examination is degraded by portable technique and apical lordotic positioning. Endotracheal and enteric tubes are unchanged in position. The heart is enlarged noting atherosclerotic calcification of the thoracic aorta. There is pulmonary vascular congestion. Emphysema and chronic interstitial thickening is similar to previous. Bilateral airspace opacities persist. No large pleural effusion or pneumothorax is seen. The bony thorax is grossly intact. IMPRESSION: 1. Stable lines and tubes. 2. Cardiomegaly and emphysema with pulmonary vascular congestion. 3. Mild bilateral airspace opacities persist and are similar to yesterday. Continued follow-up to resolution is recommended. ACT 112: Negative or not required by law. Electronically signed by: Leo Marcial M.D. 05/24/2023 7:22 AM Chest X-Ray 05/24/23 11:46 SINGLE VIEW CHEST CLINICAL HISTORY: Respiratory failure. FINDINGS: An AP, portable, upright chest radiograph is compared to study performed earlier the same day 05/24/2023 and correlated with chest CT dated 05/22/2023. The examination is degraded by portable technique and apical lordotic positioning. Endotracheal and enteric tubes are unchanged in position. The heart is enlarged noting atherosclerotic calcification of the thoracic aorta. There is pulmonary vascular congestion. Emphysema and chronic interstitial thickening is similar to previous. Bilateral airspace opacities persist. No large pleural effusion or pneumothorax is seen. The bony thorax is grossly intact. IMPRESSION: 1. Stable lines and tubes. 2. Cardiomegaly and emphysema with pulmonary vascular congestion. 3. Mild bilateral airspace opacities persist and are similar to today's earlier examination. Continued follow-up to resolution is recommended. ACT 112: Negative or not required by law. Electronically signed by: Leo Marcial M.D. 05/24/2023 12:43 PM I & O Totals 24 Hours 05/23/23 05/24/23 05/25/23 06:59 06:59 06:59 Intake Total 4225.566 / 4225.566 3638.659 / 3638.659 3077.564 / 3077.564 Output Total 425 / 425 2019 / 2019 2500 / 2500 Balance 3800.566 / 3800.566 1618.659 / 1618.659 577.564 / 577.564 Cumulative 05/22/23 14:45 thru 05/25/23 05:45 Intake Total 85665.789 Output Total 4945 Balance 5996.789 RT Ventilator Mngmt (Last Documented) Ventilator Ordered Settings Ventilator Support Mode Assist Control 05/25/23 02:58 Respiratory Rate 24 05/25/23 06:00 Ventilator Tidal Volume 440 05/25/23 02:58 Setting Minute Ventilation 10.6 05/25/23 02:58 Ventilator Positive Pressure 5 05/24/23 08:33 Support Setting Positive End Expiratory 10 05/25/23 02:58 Pressure Fraction of Inspired Oxygen 40 05/25/23 02:58 Machine Comment Pt reintubated at this time 05/24/23 11:30 Ventilator - PT Measurements Respiratory Rate 24 Exhaled Tidal Volume 440 Minute Ventilation 10.6 Peak Inspiratory Airway 38 Pressure Plateau Pressure 29.2 Respiratory Cycle Inspiratory: 1:4 Expiratory Ratio Inspiratory Phase Time 0.5 End-Tidal CO2 35 Static Lung Compliance 22.92 Dynamic Lung Compliance 15.71 Normal Static Lung Compliance 44.00 Patient Measurements Comment Mendel CISNEROS CCM aware of changes Coding Level of Care Code 84973 CRITICAL CARE 1ST 30-74M Additional Critical Care Time Additional 30min Critical Care Time: Yes - 16602 Diagnoses Acute respiratory acidosis J96.02 Pneumonia J18.9 Laterality: right Lung location: unspecified part of lung Pneumonia type: due to unspecified organism Chronic lymphocytic leukemia C91.10 Anemia D64.9 Anemia type: unspecified type Acute hyperkalemia E87.5 Sepsis A41.9; R65.21; J96.01 Acute respiratory failure type: with hypoxia Sepsis acute organ dysfunction status: with acute organ dysfunction Sepsis type: sepsis due to unspecified organism Severe sepsis acute organ dysfunction type: acute respiratory failure Severe sepsis shock status: with septic shock Additional Codes Critical Care Time - Additional 30min Critical Care Time: Yes - 10788 ([id number]) (2) Pneumonia Laterality: right Lung location: unspecified part of lung Pneumonia type: due to unspecified organism Qualified Code(s): J18.9 - Pneumonia, unspecified organism (4) Anemia Anemia type: unspecified type Qualified Code(s): D64.9 - Anemia, unspecified (6) Sepsis Acute respiratory failure type: with hypoxia Sepsis acute organ dysfunction status: with acute organ dysfunction Sepsis type: sepsis due to unspecified organism Severe sepsis acute organ dysfunction type: acute respiratory failure Severe sepsis shock status: with septic shock Qualified Code(s): A41.9 - Sepsis, unspecified organism; R65.21 - Severe sepsis with septic shock; J96.01 - Acute respiratory failure with hypoxia
[2023-05-25] MEDS: FORMOTEROL 20 MCG/2 ML VIAL INH SCH ×2 (07:36→19:56)
[2023-05-25] MEDS: BUDESONIDE 0.25 MG/2 ML VIAL (PULMICORT) NEB SCH ×2 (07:36→19:56)
[2023-05-25] MEDS ORDERED: Nursing to Pharmacy Communication SCH ×2 (08:30→15:45)
[2023-05-25] MEDS: methylPREDNISolone 40 MG in SYRINGE 0 ML IV SCH ×2 (08:56→20:53)
[2023-05-25] MEDS ORDERED: predniSONE 20 MG TAB PO SCH (09:00)
[2023-05-25] MEDS ORDERED: ROCURONIUM BROMIDE 10 MG/ML 5 ML VIAL IV ONE (10:12)
[2023-05-25] MEDS ORDERED: ETOMIDATE 2 MG/ML 20 ML VIAL IV ONE (10:12)
[2023-05-25] MEDS ORDERED: MoRPHine SULFATE 2 MG/ML CARP ONE ×2 (10:40→10:44)
[2023-05-25] MEDS ORDERED: LORazepam 2 MG/1 ML VIAL ONE (10:42)
[2023-05-25] MEDS ORDERED: RAPID SEQUENCE INDUCTION BAG ONE (10:47)
[2023-05-25] MEDS ORDERED: PROPOFOL IV EMULSION 10 MG/ML 100 ML VIAL IV ONE (10:59)
--- NOTE | 2023-05-25 11:07 | Procedure Note ---
Procedure Note Date of Service May 25, 2023 Note APC: Kumar Douglas PA-C. Attending: Dr. Easley A time-out was completed verifying correct patient, procedure, site, positioning. Patient was evaluated and required intubation for airway protection in the setting of respiratory failure. Sedative agent used: Etomidate Paralysis agent used: Rocuronium Emergent consent was implied given patients rapidly declining clinical status and need for airway protection. The patient was prepared in the appropriate fashion. Sedation was achieved utilizing Etomidate and Rocuronium , per Dr. Easley administration. The patient was easily ventilated using [id number] to achieve adequate o xygenation. A 7.5 Irish endotracheal tube was placed under Video Laryngoscopy to 24 cm at the lip. The stylette was removed and balloon was inflated with 10mL of air. Appropriate Colorimetric change was appreciated. Bilateral breath sounds were heard without air sounds in the abdomen. Dr. Easley was present for the entire procedure. Patient tolerated the procedure well and there were no immediate complications. Supervising Physician Co-Signing Physician Notes I was present during the entire procedure. Coding CPT Codes Resuscitation - Resuscitation: 41306 Endotracheal Intubation, emergency ([id number]) [facility] [place]arges) Resuscitation Resuscitation: [id number] Endotracheal Intubation, emergency
[2023-05-25] MEDS ORDERED: STAT IV Infusion **Titration per Protocol STA ×3 (11:23→23:41)
[2023-05-25] MEDS: levoFLOXacin 750 MG TAB PO SCH (11:45)
--- NOTE | 2023-05-25 11:56 | XRay Report ---
XR chest 1V portable HISTORY: 57 years-old Male Intubation acute respiratory failure COMPARISON: May 24, 2023 TECHNIQUE: Supine AP view of the chest FINDINGS: Cardiac silhouette is enlarged. Pulmonary vascular congestion with emphysema and chronic interstitial coarsening. Unchanged bilateral airspace opacities. No pneumothorax or large pleural effusion. Endot deborah tube overlies the midline, 5.7 cm superior to the melani. An enteric tube courses into the st omach with distal tip outside the [id number]. IMPRESSION: 1. Endotracheal and enteric tube placement as above. 2. No pneumothorax. 3. Unchanged appearance of the lungs. ACT 112: Negative or not required by law. The above report was generated using voice recognition software. It may contain grammatical, syntax o r spelling errors. Electronically signed by: Geovanny Mercado M.D. 05/25/2023 11:55 AM
--- NOTE | 2023-05-25 12:08 | Hospitalist Progress Note ---
Date of Service May 25, 2023 Assessment & Plan (1) Acute and chronic respiratory failure: Plan Patient is 57-year-old male with PMH of COPD, chronic hypoxemic respiratory failure requiring 2-3 L NC with exertion and HS, ongoing tobacco use, chronic right-sided heart failure, CLL, selective deficiency of IgA and M and other medical problems listed below who presents with acute respiratory failure requiring intubation. Patient was admitted to ICU for further care. History of multiple admissions for acute respiratory failure in the setting of multifactorial issues including COPD exacerbation, multifocal pneumonia and decompensated heart failure. In 2020, was admitted here and then transferred for [place] for ongoing treatment of MRSA bacteremia in the setting of necrotizing pneumonia, CLL. Was most recently admitted to [facility] in June 2022. with H. influenzae pneumonia. Acute on chronic hypoxemia and hypercapnic respiratory failure Respiratory acidosis COPD exacerbation URI with enterovirus/rhinovirus Multilobar PNA meeting sepsis criteria Recent URI symptoms and increased O2 needs with EMS intubating in the field [employer]POR[employer] INTERN CT chest: 1. Endotracheal and enteric tubes are in place. 2. Cardiomegaly with evidence of congestive failure. 3. Small right and trace left pleural effusions. 4. Multifocal patchy airspace consolidation is seen throughout both lungs, and there are also multifocal patchy nodular airspace opacities. This is asymmetrically greater on the right, and the appearance favors a multifocal pneumonia. Clinical correlation will be essential. A follow-up chest CT in 3-4 months time is recommended to document resolution and reassess the underlying lung parenchyma/pulmonary nodules. 5. There is marked splenomegaly, as well as upper abdominal, mediastinal, and sternoclavicular lymphadenopathy. There is also likely hilar lymphadenopathy. These findings are nonspecific but could be seen with a lymphoproliferative disorder such as lymphoma. 6. The liver also appears enlarged. 7. Additional findings as above. Extubated on May 25, 2023; on BiPAP presently. On levofloxacin and IV Solu-Medrol. On budesonide twice daily and DuoNeb as needed Home Lasix currently on hold; CLL Anemia, thrombocytopenia History of CLL; not on treatment. Follows up with oncology as outpatient Hemoglobin of 6.4 on admission Received 2 units of packed RBC Platelet count of 33,000 No signs of bleeding. Will need follow-up with oncology as outpatient to discuss further treatment. Acute kidney injury Creatinine 1.5 Likely secondary to sepsis Creatinine improved to 1.32 Chronic right sided heart failure Home lasix course is 80mg BID, currently on hold Hyperkalemia Potassium4.7 today DVT Ppx: SCDs Code status: FULL PCP: Reva Dispo: admitted to ICU for acute hypercapnic respiratory failure requiring mechanical ventilation. Patient extubated today; closely monitor. PT OT ordered Time spent evaluating patient, direct bedside care, chart review, placing orders, interpretation of diagnostic studies, discussion with patient as well as other required patient management activities is 50 minutes Please note the above document was generated using voice recognition software. It may contain grammatical, syntax or spelling errors. Any formal questions or concerns about the content, text or information contained within the body of this dictation should be directly addressed to the provider for clarification Admission and Anticipated Discharge Date Admission Date: May 22, 2023 Subjective Patient seen and examined at bedside. He has been extubated and is currently on BiPAP. He reports that he is feeling comfortable; not in any distress. He is alert oriented x 3. Review of Systems Review of Systems: All systems reviewed & are unremarkable except as noted in Subjective Physical Exam Physical Exam: Constitutional: Awake, alert oriented x 3. On BiPAP; not in any distress. Respiratory: Crackles heard (right greater than left) Cardiovascular: RRR, no murmur, no edema Vessels: no JVD or carotid bruit Chest: normal inspection of chest Abdomen: Soft, nontender. Musculoskeletal: no cyanosis or clubbing, extremities motor strength 5/5 Skin: no rashes, warm and dry normal turgor Neurologic: P grossly intact Results & Data Results & Data Vital Signs (Past 12 Hours) Vital Signs Temp Pulse Resp BP Pulse Ox O2 Del Method FiO2 05/25/23 11:16 37.2 C 147 H 24 160/81 H 95 05/25/23 11:01 37.2 C 150 H 18 160/81 H 98 05/25/23 10:30 36.8 C 123 H 30 H 189/118 H 94 05/25/23 09:00 36.7 C 88 18 159/76 H 94 BiPAP 40 05/25/23 08:30 102 H 22 97 40 05/25/23 08:30 36.9 C 92 H 18 96 BiPAP 40 05/25/23 08:00 36.9 C 84 13 93 05/25/23 07:37 96 H 05/25/23 07:30 37.0 C 91 H 21 90 Mechanical Vent 40 05/25/23 07:28 Mechanical Vent 40 05/25/23 07:18 92 H 25 H 97 40 05/25/23 07:00 37.0 C 79 16 92 05/25/23 07:00 128/62 05/25/23 06:30 37.1 C 54 L 24 95 05/25/23 06:00 37.1 C 61 24 96 05/25/23 05:30 37.1 C 61 24 96 05/25/23 05:00 37.2 C 57 L 24 05/25/23 04:30 37.1 C 58 L 24 96 05/25/23 04:00 114/54 L 05/25/23 04:00 37.1 C 63 24 05/25/23 03:30 37.1 C 59 L 24 94 05/25/23 03:00 126/53 L 05/25/23 03:00 37.1 C 65 24 05/25/23 02:58 66 24 97 40 05/25/23 02:30 37.2 C 59 L 24 99 05/25/23 02:23 60 05/25/23 02:00 37.2 C 61 24 05/25/23 02:00 125/55 L 05/25/23 01:30 37.2 C 67 24 99 05/25/23 01:00 123/54 L 05/25/23 01:00 37.3 C 65 24 05/25/23 00:30 37.3 C 64 24 97 05/25/23 00:01 133/61 05/25/23 00:01 37.2 C 72 21 98 05/25/23 00:00 37.2 C 71 24
[2023-05-25 12:35] LABS: iSTAT Art Bld Gas pCO2 Correct 63 mmHg (35-46); iSTAT Art Bld Gas pH Corrected 7.372 (7.35-7.45); iSTAT Arterial Blood Gas HCO3 37 meg/L (19-24); iSTAT Arterial Blood Gas pCO2 64 mmHg (35-46); iSTAT Arterial Blood Gas pH 7.37 (7.35-7.45); iSTAT Arterial Blood Gas pO2 58 mmHg (80-95); iSTAT Arterial Blood Gas pO2 C 57; iSTAT Carbon Dioxide 39 mmol/L (24-31); iSTAT FiO2 40 %; iSTAT Hematocrit 24 % (42-52); iSTAT Hemoglobin 8.2 g/dl (14.0-18.0); iSTAT Potassium 4.4 mmol/L (3.3-5.0); iSTAT Site Heel Stick; iSTAT Sodium 139 mmol/L (135-144)
[2023-05-25] MEDS: NAPHAZOLIN/PHENIRAMIN OPH SOLN 75 DROPS/5 ML BTL OP SCH ×3 (13:00→20:55)
[2023-05-25] MEDS ORDERED: VECURONIUM BROMIDE 10 MG VIAL IV STA ×2 (13:41→23:52)
[2023-05-25 14:10] LABS: iSTAT Art Bld Gas pCO2 Correct 75 mmHg (35-46); iSTAT Art Bld Gas pH Corrected 7.324 (7.35-7.45); iSTAT Arterial Blood Gas HCO3 39 meg/L (19-24); iSTAT Arterial Blood Gas pCO2 76 mmHg (35-46); iSTAT Arterial Blood Gas pH 7.32 (7.35-7.45); iSTAT Arterial Blood Gas pO2 40 mmHg (80-95); iSTAT Arterial Blood Gas pO2 C 39; iSTAT Carbon Dioxide > 40 mmol/L (24-31); iSTAT Hematocrit 30 % (42-52); iSTAT Hemoglobin 10.2 g/dl (14.0-18.0); iSTAT Potassium 5.2 mmol/L (3.3-5.0); iSTAT Site Art Line; iSTAT Sodium 139 mmol/L (135-144)
[2023-05-25 14:10] LABS: iSTAT Art Bld Gas pCO2 Correct 65 mmHg (35-46); iSTAT Art Bld Gas pH Corrected 7.404 (7.35-7.45); iSTAT Arterial Blood Gas HCO3 41 meg/L (19-24); iSTAT Arterial Blood Gas pCO2 66 mmHg (35-46); iSTAT Arterial Blood Gas pO2 44 mmHg (80-95); iSTAT Arterial Blood Gas pO2 C 43; iSTAT Carbon Dioxide > 40 mmol/L (24-31); iSTAT FiO2 40 %; iSTAT Hematocrit 25 % (42-52); iSTAT Hemoglobin 8.5 g/dl (14.0-18.0); iSTAT Potassium 4.9 mmol/L (3.3-5.0); iSTAT Site Art Line; iSTAT Sodium 138 mmol/L (135-144)
[2023-05-25] MEDS: PROPOFOL BOLUS FROM BAG IV PRN ×4 (14:18→14:39)
[2023-05-25] MEDS ORDERED: LIDOCAINE 1% LOCAL 20 ML VIAL ONE (14:32)
--- NOTE | 2023-05-25 14:55 | Procedure Note ---
Procedure Note Date of Service May 25, 2023 Note Procedure Date: Noted Above Procedure: Percutaneous Dilatational Tracheotomy with Bronchoscopic Guidance Pre-procedure Diagnosis & Indication: Chronic respiratory failure and need for ongoing mechanical ventilation Post-procedure Diagnosis: same as above Prior to Procedure: Informed Consent: The risks, benefits, indications, potential complications, and alternatives were explained to the patient's family and informed consent was obtained. Performed by: Shahid Easley DO Bronchoscopy Tow Truck Operator: Meryl Douglas Preprocedure: The identity of the patient was confirmed and a bedside time out was performed. Holiday protocol was followed for this procedure. Prior to the initiation of sedation or the procedure, a timeout was performed. The patients identity was verified by confirming the patients wrist band for name, date of , and medical record number. Everyone in the room was in agreement with the patient identify, the procedure to be performed, consent was in place and matched the planned procedure, and the procedure site. The area was cleaned with a CHG scrub and draped with large sterile barrier. Hand hygiene was performed, and cap, mask, sterile gown, and sterile gloves were worn. The patient was covered by a large sterile drape. Sterile technique was maintained for the entire procedure. Anesthesia: The patient was intubated and sedated prior to the procedure. Additional propofol and fentanyl was given for deep sedation. Once the patient was adequately sedated, vecuronium was administered for paralysis. Description of Procedure: The patient was placed in the supine position. The anterior neck was prepped and draped in usual sterile fashion. 1% lidocaine was administered approximately 2 fingerbreadths above the sternal notch for local anesthesia. The bronchoscope was introduced through the endotracheal tube and the trachea was properly visualized. The endotracheal tube was then gradually withdrawn within the trachea under direct bronchoscopic visualization. The area of the surgical site was initially transilluminated, and proper midline position was confirmed by bouncing the needle from the tracheostomy tray over the trachea with bronchoscopic examination. The needle was advanced into the trachea and proper positioning was confirmed with direct visualization. The needle was then removed leaving a white outer cannula in position. The wire from the tracheostomy tray was then advanced through the white outer cannula. The cannula was then removed. The initial small, blue dilator was then advanced over the wire into the trachea for initial dilation. The large, tapered dilator was then advanced over the wire into the trachea. The dilator was removed leaving the wire and white inner cannula in position. A number 6 distal XLT Shiley tracheostomy tube with appropriate inner cannula was then advanced over the wire and white inner cannula into the trachea. Proper positioning was confirmed with bronchoscopic visualization. The tracheostomy tube was then sutured in place with four nylon sutures. It was further secured with a tracheostomy tie. Estimated blood loss: Less than 5 mL. Complications: None immediate. Coding CPT Codes ENT - ENT: 03370 Incision of windpipe ([id number][place] [facility] [place]arges[place] ENT ENT: 85374 Incision of windpipe
--- NOTE | 2023-05-25 15:06 | Procedure Note ---
Procedure Note Date of Service May 25, 2023 Note Procedure: Flexible Bronchoscopy for Direct Visualization for Percutaneous Tracheostomy Tube Placement, Bronchoalveolar Lavage Attending/Deputy Sheriff/Investigator: Dr. Easley, Kumar Douglas PA-C Anesthetic/Sedation: Rocuronium, Fentanyl, Propofol Indication: VDRF, COPD Consent was signed and placed on the chart prior to procedure. Indication, risks, and benefits were explained at length. A time-out was completed verifying correct patient, procedure, site, positioning, and implant(s) or special equipment if applicable. After appropriate sedation and paralysis administered per Dr. Easley direction, the flexible bronchoscope was entered into the existing endotracheal tube with direct visualization of the patient's distal airways including the melani. Airway appears relatively clean and patent and without significant discharge, drainage, or blood appreciated. After briefly examining the upper airways, the bronchoscope was positioned at the distal tip of the endotracheal tube to visualize the anterior aspect of the trachea. The tracheal tube was slowly removed with the assistance of respiratory therapy until visualization of the light of the scope was present. At this point, finder needle was inserted by Dr. Easley into the lumen of the airway. The finder needle was visualized entering the anterior surface without penetration into the posterior wall of the airway. Catheter was threaded and noted to be send into the airway. Wire was threaded distally descending into the airway as well. Serial dilations were directly visualized without injury to the posterior airway wall. Tracheostomy tube was visualized being inserted into descending fashion. After tracheostomy tube was placed, the bronchoscope was removed from the endotracheal tube and inserted into the tracheostomy tube to visualize the distal airways including the melani. Expected blood noted in the airway without active bleeding appreciated. After the tracheostomy tube was secured and the procedure was completed, the bronchoscope was introduced into the tracheostomy site with visualization of the airways which demonstrated blood, but no active bleeding noted. The RIGHT lower lobe was visualized and with mild whitish secretions. BAL was facilitated of the RIGHT lower lobe with 50 mL of sterile saline. Fluid sent for cultures and sensitivities. Procedure terminated at that time. Patient tolerated procedure well. No immediate complications were appreciated. Specimens: BAL - 10 mL x 1, RIGHT Lower Lobe Complications: NONE Impression: Expected Airway in the Post Percutaneous Tracheostomy Placement Plan: Sent BAL for Culture & Sensitivities, Gram Stain, AFB Images: Print out of images added to patients physical chart. Supervising Physician Co-Signing Physician Notes I was present during this procedure Coding CPT Codes Pulmonary/Thoracic - Pulmonary and Thoracic: 81546 Dx bronchoscopy/BAL ([id number]) [facility] [place] Procedure Codes (Charges) Pulmonary/Thoracic Procedure 1: Pulmonary and Thoracic: 41147 Dx bronchoscopy/BAL
[2023-05-25] MEDS ORDERED: fentaNYL citrate PF 100 MCG/2 ML VIAL IV ONE (15:16)
--- NOTE | 2023-05-25 15:30 | XRay Report ---
SINGLE VIEW CHEST CLINICAL HISTORY: Tracheostomy placement. FINDINGS: 2 AP, portable, supine chest radiographs are compared to study performed earlier the same d ay 05/25/2023 and correlated with chest CT dated 05/22/2023. The examination is degraded by portable te chnique and apical lordotic positioning. The endotracheal tube has been removed and a tracheostomy wong s been placed. A new enteric tube has been placed. The tip projects below the diaphragm over the mid stomach. The heart is enlarged noting atherosclerotic calcification of the thoracic aorta. There is p ulmonary vascular congestion. Emphysema and chronic interstitial thickening is similar to previous. B ilateral airspace opacities have increased from today's earlier examination. No large pleural effusio n or pneumothorax is seen. The bony thorax is grossly intact. IMPRESSION: 1. Tracheostomy and enteric tube placement as above. 2. Cardiomegaly and emphysema with pulmonary vascular congestion. 3. Multifocal bilateral airspace opacities have increased from today's earlier examination. Correlate clinically. ACT 112: Negative or not required by law. Electronically signed by: Leo Marcial M.D. 05/25/2023 3:28 PM
--- NOTE | 2023-05-25 15:55 | XRay Report ---
KUB HISTORY: Status post placement of a feeding tube tube placement COMPARISON: None. FINDINGS: Nonobstructive bowel gas pattern. The lower and left lateral abdomen are excluded from the [id number]. Cardiomegaly with left lung base opacities. Distal tip of feeding tube projects superi jess than the typical location of the gastric body. No renal calculi. No ureteral calculi. No pneumo peritoneum or pneumatosis. No fracture. IMPRESSION: Distal tip of feeding tube projected over the expected location of the gastric body. ACT 112: Negative or not required by law. The above report was generated using voice recognition software. It may contain grammatical, syntax o r spelling errors. Electronically signed by: Geovanny Mercado M.D. 05/25/2023 3:53 PM
[2023-05-25] MEDS ORDERED: MoRPHine SULFATE 4 MG/ML 1 ML CARP\\VIAL IV STA (16:23)
[2023-05-25] MEDS ORDERED: MoRPHine SULFATE 2 MG/ML CARP IV STA (16:23)
[2023-05-25] MEDS ORDERED: LORazepam 2 MG in SYRINGE 1 ML IV STA (16:23)
[2023-05-25] MEDS: PLASMA-LYTE A 1,000 ML IV SCH (16:27)
[2023-05-25] MEDS: PEPTAMEN INTENSE VHP 1.0 CAL 1,000 ML BAG OG SCH (16:32)
[2023-05-25] MEDS ORDERED: VECURONIUM BROMIDE 10 MG VIAL IV ONE ×2 (16:39→23:50)
[2023-05-25] MEDS: TUBE FEEDING WATER FLUSH NG SCH ×2 (16:54→20:50)
[2023-05-25] MEDS ORDERED: fentaNYL BOLUS from BAG IV PRN (16:58)
[2023-05-25] MEDS: fentaNYL citrate 2,500 MCG/250 ML BAG IV SCH (17:13)
[2023-05-25 17:39] LABS: Fluid Mono/Macrophage 2 %; Lymphocyte Body Fluid Man 2 %; Neutrophil Body Fluid Man 96 %
[2023-05-25] MEDS ORDERED: OPTIRAY 320 125ml IV ONE (17:52)
--- NOTE | 2023-05-25 18:31 | CT Scan Report ---
CT ANGIOGRAM OF THE NECK CLINICAL HISTORY: Reason tracheostomy. Clinical concern for active extravasation/hemorrhage at the tr acheostomy site. COMPARISON STUDY: No priors. TECHNIQUE: Following the IV administration of 117 of Optiray 320, CT angiogram of the neck was perfor med from the aortic arch to the skull base. Images are reviewed in the axial, sagittal, and coronal p lanes. 3-D MIPS images are created and assessed. IV contrast was administered without complication. A ll measurements were calculated based on NASCET criteria. A dose lowering technique was utilized adh ering to the principles of ALARA. CT DOSE: 556.73 mGy.cm FINDINGS: Thoracic aorta: There is atherosclerotic calcification of the thoracic aorta. Visualized portions of the thoracic aorta are normal in caliber. The aortic arch demonstrates bovine variant anatomy. Right carotid arterial system: The right common carotid artery is widely patent noting atheroscleroti c plaque and irregularity. There is advanced atherosclerotic plaque in the carotid bulb. This causes less than 50% stenosis at the origin of the right internal carotid artery. The internal and external carotid arteries are otherwise widely patent. Left carotid arterial system: The left common carotid artery is widely patent, as are the left international account representative al and external carotid arteries. Calcified plaque is noted in the carotid bulb. Vertebral arteries: Vertebral arteries are widely patent bilaterally noting left-sided dominance. Subclavian arteries: Widely patent bilaterally. Intracranial vasculature: The visualized intracranial vessels at the skull base are patent. The left vertebral artery is dominant. Advanced atherosclerotic plaque is seen in the cavernous carotid arteri es. Jugular veins: Patent bilaterally. Brain parenchyma: The visualized brain parenchyma the skull base is within normal limits. Lung apices: A tracheostomy is in place and appears properly positioned. Emphysematous changes noted. Intralobular septal thickening is seen throughout the upper lobes with multifocal airspace consolida tion There are layering pleural effusions with dependent consolidation. There is no pneumothorax. Soft tissues: An enteric tube is in place. There is mild diffuse pharyngeal edema. Fluid/secretions a re seen throughout the pharynx. There is mild infiltration in the anterior soft tissues at the site o f the tracheostomy. There is no CT evidence of active extravasation in this region. There is nonspeci fic infiltration of the right parapharyngeal fat. A coarse calcification is noted in the left lobe of the thyroid. The thyroid gland is heterogeneous. The salivary glands are normal in appearance. There are prominent cervical lymph nodes. A left supraclavicular node on image #161 measures 2.0 x 1.0 cm. The patient is edentulous. Skeletal structures: The visualized calvarium at the skull base appears intact. The imaged cervical s pine is maintained noting mild multilevel spondylosis. Sinuses and mastoids: There is mild mucosal thickening within the maxillary and sphenoid sinuses. Mas toid air cells are well pneumatized. IMPRESSION: 1. A tracheostomy is in place and appears appropriately positioned. 2. There is mild soft tissue infiltration identified around the tracheostomy insertion site with no e vidence of active extravasation as clinically queried. 3. Atherosclerotic plaque causes less than 50% luminal narrowing at the origin of the right internal carotid artery. 4. Otherwise unremarkable CT angiogram of the neck. 5. Emphysema. 6. Intralobular septal thickening suggests fluid overload/congestive change. 7. There are layering pleural effusions with dependent consolidation, as well as patchy airspace cons olidation in the upper lobes. 8. There is nonspecific edema throughout the pharyngeal soft tissues, as well as infiltration of the right parapharyngeal fat. Correlate clinically. Fluid/secretions are seen throughout the pharynx. 9. Mildly enlarged cervical chain lymph nodes are nonspecific. Correlated clinically. ACT 112: Negative or not required by law. Electronically signed by: Leo Marcial M.D. 05/25/2023 6:28 PM
[2023-05-25 19:06] LABS: Hematocrit (blood only) 27.2 % (42.0-52.0); Hemoglobin 8.3 g/dl (14.0-18.0); Mean Corpuscular Hemoglobin 31.9 pg (25.0-34.0); Mean Corpuscular Hgb Conc 30.5 g/dL (32.0-36.0); Mean Corpuscular Volume 104.6 fL (80.0-100.0); Mean Platelet Volume 12.8 fL (9.4-12.4); Nucleated RBC # (auto) 0.05 K/uL (0.00-0.12); Nucleated RBC % (auto) 0.1 %; Platelet Count 41 K/uL (130-400); RDW Standard Deviation 72.4 fL (36.4-46.3); White Blood Count 50.22 K/ul (4.8-10.8)
[2023-05-25 19:24] LABS: Fibrinogen 340 mg/dl (184-400); Partial Thromboplastin Ratio 1.2; Partial Thromboplastin Time 33 Seconds (21-31); Prothrombin Time 11.3 Seconds (9.0-12.0)
[2023-05-25 20:20] LABS: Basophils # (auto) 0.09 K/uL (0.00-0.20); Basophils % (auto) 0.2 %; Immature Granulocytes # (auto) 0.09 K/uL (0.01-0.20); Immature Granulocytes % (auto) 0.2 %; Lymphocytes # (auto) 43.62 K/uL (1.20-3.40); Lymphocytes % (auto) 86.9 %; Monocytes # (auto) 4.65 K/uL (0.11-0.59); Monocytes % (auto) 9.3 %; Neutrophils # (auto) 1.77 K/uL (1.40-6.50); Neutrophils % (auto) 3.4 %; Smudge Cells Present; Stomatocytes 2+
[2023-05-25 21:27] LABS: Marijuana Quant, GCMS Urine 55 ng/mL (<5)
[2023-05-25] MEDS ORDERED: STAT IV/IM STA (23:41)
[2023-05-25] MEDS ORDERED: LIDOCAINE 2%/EPINEPHRINE 1:100,000 20ML INFIL ONE (23:42)
[2023-05-25] MEDS ORDERED: MIDAZOLAM HCL 1 MG/ML 2ML VIAL IV PRN (23:49)
[2023-05-26] MEDS ORDERED: MIDAZOLAM BOLUS FROM BAG IV PRN (00:04)
[2023-05-26] MEDS ORDERED: STAT IV Infusion **Titration per Protocol STA (00:04)
[2023-05-26] MEDS: INSULIN ASPART PER UNIT CHARGE SC SCH ×4 (00:08→19:05)
[2023-05-26] MEDS: TUBE FEEDING WATER FLUSH NG SCH ×6 (00:09→20:06)
[2023-05-26] MEDS: PROPOFOL BOLUS FROM BAG IV PRN ×2 (00:44→19:58)
[2023-05-26] MEDS: MIDAZOLAM HCL 125 MG/250 ML BAG IV SCH (00:45)
[2023-05-26] MEDS: CISATRACURIUM BESYLATE 40 MG in DEXTROSE 5% 80 ML IV SCH ×3 (00:50→07:33)
[2023-05-26] MEDS: ARTIFICIAL TEARS OP OINT 3.5 GM TUBE OP SCH ×3 (00:53→09:19)
[2023-05-26] MEDS: propofoL 1,000 MG/100 ML VIAL IV SCH ×13 (00:55→22:31)
[2023-05-26 02:28] LABS: Hematocrit (blood only) 27.8 % (42.0-52.0); Hemoglobin 8.4 g/dl (14.0-18.0); Mean Corpuscular Hemoglobin 32.2 pg (25.0-34.0); Mean Corpuscular Hgb Conc 30.2 g/dL (32.0-36.0); Mean Corpuscular Volume 106.5 fL (80.0-100.0); Mean Platelet Volume 12.9 fL (9.4-12.4); Nucleated RBC # (auto) 0.05 K/uL (0.00-0.12); Nucleated RBC % (auto) 0.1 %; Platelet Count 44 K/uL (130-400); RDW Standard Deviation 73.1 fL (36.4-46.3); Red Blood Count 2.61 M/uL (4.70-6.10); White Blood Count 48.57 K/ul (4.8-10.8)
[2023-05-26 05:01] LABS: BUN Creatinine Ratio 35.1 (10-20); Calcium 7.9 mg/dl (8.6-10.3); Creatinine Clr Calc Pharmacy 89.2 ml/min; Est GFR (African American) 81.7 ml/min; Est GFR (Non-African American) 70.5 ml/min; Magnesium 2.7 mg/dl (1.7-2.4); Potassium 5.2 mmol/L (3.5-5.1)
[2023-05-26 05:04] LABS: Partial Thromboplastin Ratio 1.2; Partial Thromboplastin Time 34 Seconds (21-31); Prothrombin Time 11.3 Seconds (9.0-12.0)
[2023-05-26 05:10] LABS: iSTAT Allen Test Pass; iSTAT Art Bld Gas pCO2 Correct 65 mmHg (35-46); iSTAT Art Bld Gas pH Corrected 7.357 (7.35-7.45); iSTAT Arterial Blood Gas HCO3 36 meg/L (19-24); iSTAT Arterial Blood Gas pCO2 65 mmHg (35-46); iSTAT Arterial Blood Gas pH 7.36 (7.35-7.45); iSTAT Arterial Blood Gas pO2 64 mmHg (80-95); iSTAT Arterial Blood Gas pO2 C 64; iSTAT Carbon Dioxide 38 mmol/L (24-31); iSTAT Hematocrit 23 % (42-52); iSTAT Hemoglobin 7.8 g/dl (14.0-18.0); iSTAT Site L Radial; iSTAT Sodium 136 mmol/L (135-144)
[2023-05-26 05:16] LABS: Hematocrit (blood only) 24.2 % (42.0-52.0); Hemoglobin 7.4 g/dl (14.0-18.0); Mean Corpuscular Hgb Conc 30.6 g/dL (32.0-36.0); Mean Corpuscular Volume 104.8 fL (80.0-100.0); Mean Platelet Volume 12.9 fL (9.4-12.4); Nucleated RBC # (auto) 0.04 K/uL (0.00-0.12); Nucleated RBC % (auto) 0.1 %; Platelet Count 42 K/uL (130-400); RDW Coefficient of Variation 18.6 % (11.5-14.5); RDW Standard Deviation 70.8 fL (36.4-46.3); Red Blood Count 2.31 M/uL (4.70-6.10); White Blood Count 37.09 K/ul (4.8-10.8)
[2023-05-26 06:13] LABS: Basophils # (auto) 0.04 K/uL (0.00-0.20); Basophils % (auto) 0.1 %; Immature Granulocytes # (auto) 0.05 K/uL (0.01-0.20); Immature Granulocytes % (auto) 0.1 %; Lymphocytes # (auto) 32.29 K/uL (1.20-3.40); Lymphocytes % (auto) 87.1 %; Monocytes # (auto) 3.15 K/uL (0.11-0.59); Monocytes % (auto) 8.5 %; Neutrophils # (auto) 1.56 K/uL (1.40-6.50); Neutrophils % (auto) 4.2 %; Smudge Cells Present
--- NOTE | 2023-05-26 07:08 | XRay Report ---
SINGLE VIEW CHEST CLINICAL HISTORY: Respiratory failure. FINDINGS: 2 AP, portable, supine chest radiographs are compared to studies dated 05/25/2023 and correla debi with chest CT dated 05/22/2023. The examination is degraded by portable technique and patient rot ation. A tracheostomy and enteric tube are unchanged in position. The heart is enlarged noting athero sclerotic calcification of the thoracic aorta. There is pulmonary vascular congestion. Emphysema and chronic interstitial thickening is similar to previous. Bilateral airspace opacities have increased f rom today's earlier examination. There are small pleural effusions. No pneumothorax is seen. The bony thorax is grossly intact. IMPRESSION: 1. Stable lines and tubes. 2. Cardiomegaly and emphysema with pulmonary vascular congestion. 3. Multifocal bilateral airspace opacities and small pleural effusions are similar to yesterday. ACT 112: Negative or not required by law.' Electronically signed by: Leo Marcial M.D. 05/26/2023 7:07 AM
--- NOTE | 2023-05-26 07:31 | Critical Care Progress Note ---
Date of Service May 26, 2023 Assessment & Plan (1) Acute respiratory acidosis: (2) Pneumonia: (3) Chronic lymphocytic leukemia: (4) Anemia: (5) Acute hyperkalemia: (6) Sepsis: Plan (1) Acute respiratory acidosis: (2) Pneumonia: (3) Chronic lymphocytic leukemia: (4) Anemia: (5) Acute hyperkalemia: (6) Sepsis: Plan Reason Critically Ill: 57 yo M w/ a PMHx of CML not on any treatment, HTN, HLD obesity, HFrEF, COPD on oxygen, GERD was brought in and intubated for respiratory distress. Neuro - [facility] ICU: Negative Propofol and fentanyl for sedation Cardiac - - HFrEF Compensated BNP 76 Respiratory - -- VDRF Multifactorial Likely secondary to COPD exacerbation secondary to entero-/rhinovirus -Respiratory bio fire negative for everything except for entero-/rhinovirus Initial intubation 05/22 --> Extubated 1/2 --> Reintubation secondary to hypercapnic respiratory failure 1/2 -Tolerating pressure support ventilation will give extended trial to evaluate for hypercapnic failure if normal will proceed with extubation today -Tolerated extended SBT, VBG mild hypercapnia at pCO2 65; very encouraging extubation parameters: RSBI 24 respiratory rate 12, negative inspiratory force 22: Extubated to BiPAP 14/10 backup rate 18 -A discussion regarding possible need for tracheostomy had yesterday should the patient fail. He was comfortable with proceeding if necessary, did not want to entertain palliative -Patient desired to have mask removed and attempt to ease, mask was off for about 10 minutes became acutely hypercapnic and agitated recheck VBG pCO2 75 and became somnolent requiring reintubation, plan to discuss with the patient's daughter and the patient's after his pCO2 normalizes while on the ventilator with regard to proceeding with tracheostomy given 2 failures in the setting of encouraging extubation parameters and adequate blood gas while on minimal ventilator settings, and adequate ventilatory parameters while on noninvasive mechanical ventilation. -Tracheostomy performed successfully yesterday, sutured in place w/ 4 nylon sutures; some oozing of blood post-suturing - Procalcitonin 0.12 -MRSA nasal negative, will discontinue vancomycin treat with empiric antibiotics given significant structural lung disease: Respiratory fluoroquinolone -Levaquin 750 mg p.o. 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 On Advair and Spiriva at home -Discontinue IV steroids transition to prednisone: Taper ordered GI - -- History of GERD Continue with pantoprazole RENAL/LYTES - --Hyperkalemia: improving -- Metabolic alkalosis: resolved Likely compensation to chronic respiratory acidosis as well as the use of Lasix - -- Ramon catheter to monitor I's and O's ENDO - -- ICU hypoglycemia protocol HEME - -- History of CLL; not on any chemotherapy right now - 2 Unit PRBCs -Additional units of packed red blood cells Peripheral smear: reviewed - trend Hgb daily w/ CBC --Macrocytic anemia, Hgb (6.4 - 10.2 this admission), last Hgb, 7.8 MCV 117 Monitor w/ afternoon H&H --Thrombocytopenia, last Plt, 42 Continue to monitor ID - -- Multilobar pneumonia Mostly affecting the right side Procalcitonin 0.12 Follow-up nasal MRSA - de-escalate to levaquin --Prophylaxis VTE: IPC GI: Pantoprazole Lines: Peripheral Diet: speech therapy consult reviewed Admission and Anticipated Discharge Date Admission Date: May 22, 2023 Admission and Anticipated Discharge Date Admission Date: May 22, 2023 Supervising Physician Co-Signing Physician Notes Dr. Santana was resident physician during care of patient. I separately evaluated patient for sung portions of the history and the exam. I was present during the critical portion of medical decision making, and I discussed the case with the resident. I generally agree with the findings and plan. Patient underwent tracheostomy yesterday had persistent oozing. No radiographic evidence to suggest arterial injury. Oozing likely secondary to underlying CLL, questionable dysfunctional platelets. Given 1 unit platelets, locally injected area with lidocaine and epinephrine and packed area with Surgicel. Oozing has now stopped. Placed patient under neuromuscular blockade to assist in keeping patient's immobile to prevent dislodging clots, we will discontinue neuromuscular blockade today and keep the patient heavily sedated for the next 12 to 24 hours to allow time for wound healing as I believe that the patient is conscious and swallowing or coughing this will cause trauma and could potentially start the surgical wound oozing again. Continue tube feeds, transition to oral prednisone, discontinue Solu-Medrol patient critically ill. I have personally spent 45 minutes of critical care time in the direct management of this patient. This is a life/limb threatening event. This includes time spent evaluating patient, direct bedside care, chart review, placing orders, interpretation of diagnostic studies, discussion with consultants, patient, and/or family members regarding treatment decisions, as well as other required patient management activities. This time is exclusive of all separately billable procedures, and teaching time and separate from and in addition to any other critical care service time. Subjective Patient is a 57 yo M w/ a PMHx of HTN, HLD, COPD, CHrEF, obesity, CLL, tobacco use, and selective deficiency of IgA and IgG who was admitted for worsening respiratory distress and was intubated soon after arrival to the [facility] ED. Patient seen and examined at bedside. He was extubated and is currently on BiPAP, but neither alert nor oriented this morning, probably secondary to sedation--on a propofol and fentanyl drip. Review of Systems Review of Systems: Unobtainable due to reduced consciousness Physical Exam Constitutional: well nourished and + obese; + not healthy appearing Eyes: normal visual ware by confrontation and PERRL Respiratory: patient on ventilator w/ tracheostomy Cardiovascular: RRR, no murmur, no edema Extremities: normal capillary refill; no edema Gastrointestinal (Abdomen): normal bowel sounds, soft, nontender, no hep atosplenomegaly Neurologic: Cranial Nerves: PERRL and no nystagmus Psychiatric: Orientation: + not alert and + not oriented x 3 (not able to evaluate secondary to patient's mental status) Results & Data Results & Data Vital Signs (Past 12 Hours) Vital Signs Temp Pulse Resp BP Pulse Ox Pulse Ox O2 Del Method 05/26/23 06:30 37.0 C 76 16 100 05/26/23 06:30 102/56 L 05/26/23 06:00 37.0 C 74 16 97 05/26/23 06:00 103/53 L 05/26/23 05:30 37.2 C 81 16 97 05/26/23 05:30 111/57 L 05/26/23 05:08 79 16 95 05/26/23 05:00 108/59 L 05/26/23 05:00 37.2 C 82 16 93 05/26/23 04:30 37.2 C 81 16 100 05/26/23 04:30 106/58 L 05/26/23 04:00 107/56 L 05/26/23 04:00 37.2 C 74 16 92 05/26/23 04:00 95 05/26/23 03:30 37.1 C 77 16 92 05/26/23 03:30 113/57 L 05/26/23 03:00 37.0 C 81 16 92 05/26/23 03:00 113/61 05/26/23 02:30 36.9 C 75 16 93 05/26/23 02:30 114/60 05/26/23 02:15 126/68 05/26/23 02:15 36.9 C 87 16 93 05/26/23 02:00 36.9 C 82 16 93 05/26/23 02:00 121/66 05/26/23 01:45 128/67 05/26/23 01:45 36.9 C 83 16 94 05/26/23 01:30 37.0 C 83 16 93 05/26/23 01:30 125/65 05/26/23 01:15 37.0 C 81 16 93 05/26/23 01:15 123/67 05/26/23 01:00 37.0 C 77 16 94 05/26/23 01:00 122/61 05/26/23 00:45 36.9 C 76 16 94 05/26/23 00:45 128/62 05/26/23 00:30 125/61 05/26/23 00:30 36.9 C 81 16 92 05/26/23 00:15 36.8 C 80 16 92 05/26/23 00:15 127/66 05/26/23 00:00 36.8 C 77 16 93 05/26/23 00:00 109/59 L 05/26/23 00:00 81 05/25/23 23:30 36.8 C 81 16 94 05/25/23 23:30 115/59 L 05/25/23 23:05 80 16 99 05/25/23 23:00 111/58 L 05/25/23 23:00 36.8 C 76 16 99 05/25/23 22:30 36.8 C 79 16 99 05/25/23 22:30 109/59 L 05/25/23 22:12 36.8 C 84 16 110/58 L 98 05/25/23 22:00 36.8 C 88 16 98 05/25/23 22:00 111/59 L 01/03/24 21:41 36.8 C 83 16 111/59 L 98 05/25/23 21:30 36.8 C 92 H 16 100 05/25/23 21:30 110/56 L 05/25/23 21:15 36.7 C 100 H 17 100 05/25/23 21:15 143/73 H 05/25/23 21:00 36.7 C 84 16 99 05/25/23 21:00 110/59 L 05/25/23 20:45 36.7 C 84 16 100 05/25/23 20:45 112/59 L 05/25/23 20:41 36.7 C 83 16 112/59 L 99 05/25/23 20:30 36.7 C 88 16 100 05/25/23 20:30 112/58 L 05/25/23 20:22 95 H 16 96 05/25/23 20:15 112/60 05/25/23 20:15 36.7 C 91 H 16 100 05/25/23 20:11 36.7 C 83 16 112/75 99 05/25/23 20:00 36.7 C 92 H 16 98 05/25/23 20:00 123/66 05/25/23 20:00 Mechanical Vent 05/25/23 19:56 36.7 C 93 H 16 98 05/25/23 19:56 135/69 05/25/23 19:56 36.7 C 92 H 16 135/69 98 05/25/23 19:45 36.7 C 89 16 100 05/25/23 19:45 115/63 O2 Del Method FiO2 05/26/23 06:30 05/26/23 06:30 05/26/23 06:00 05/26/23 06:00 05/26/23 05:30 05/26/23 05:30 05/26/23 05:08 40 05/26/23 05:00 05/26/23 05:00 05/26/23 04:30 05/26/23 04:30 05/26/23 04:00 05/26/23 04:00 05/26/23 04:00 Mechanical Vent 05/26/23 03:30 05/26/23 03:30 05/26/23 03:00 05/26/23 03:00 05/26/23 02:30 05/26/23 02:30 05/26/23 02:15 05/26/23 02:15 05/26/23 02:00 05/26/23 02:00 05/26/23 01:45 05/26/23 01:45 05/26/23 01:30 05/26/23 01:30 05/26/23 01:15 05/26/23 01:15 05/26/23 01:00 05/26/23 01:00 05/26/23 00:45 05/26/23 00:45 05/26/23 00:30 05/26/23 00:30 05/26/23 00:15 05/26/23 00:15 05/26/23 00:00 05/26/23 00:00 05/26/23 00:00 05/25/23 23:30 05/25/23 23:30 05/25/23 23:05 40 05/25/23 23:00 05/25/23 23:00 05/25/23 22:30 05/25/23 22:30 05/25/23 22:12 05/25/23 22:00 05/25/23 22:00 05/25/23 21:41 05/25/23 21:30 05/25/23 21:30 05/25/23 21:15 05/25/23 21:15 05/25/23 21:00 05/25/23 21:00 05/25/23 20:45 05/25/23 20:45 05/25/23 20:41 05/25/23 20:30 05/25/23 20:30 05/25/23 20:22 50 05/25/23 20:15 05/25/23 20:15 05/25/23 20:11 05/25/23 20:00 05/25/23 20:00 05/25/23 20:00 50 05/25/23 19:56 05/25/23 19:56 05/25/23 19:56 05/25/23 19:45 05/25/23 19:45 (2) Pneumonia Laterality: right Lung location: unspecified part of lung Pneumonia type: due to unspecified organism Qualified Code(s): J18.9 - Pneumonia, unspecified organism (4) Anemia Anemia type: other cause Other causes of anemia: other cause, not classified Qualified Code(s): D64.89 - Other specified anemias (6) Sepsis Acute respiratory failure type: with hypoxia Sepsis acute organ dysfunction status: with acute organ dysfunction Sepsis type: sepsis due to unspecified organism Severe sepsis acute organ dysfunction type: acute respiratory failure Severe sepsis shock status: with septic shock Qualified Code(s): A41.9 - Sepsis, unspecified organism; R65.21 - Severe sepsis with septic shock; J96.01 - Acute respiratory failure with hypoxia
[2023-05-26] MEDS: FORMOTEROL 20 MCG/2 ML VIAL INH SCH ×2 (07:48→19:53)
[2023-05-26] MEDS: BUDESONIDE 0.25 MG/2 ML VIAL (PULMICORT) NEB SCH ×2 (07:48→19:53)
--- NOTE | 2023-05-26 09:16 | Billing Data ---
Date of Service May 26, 2023 Coding Level of Care Code 27614 CRITICAL CARE
[2023-05-26] MEDS: NAPHAZOLIN/PHENIRAMIN OPH SOLN 75 DROPS/5 ML BTL OP SCH ×4 (09:19→20:07)
[2023-05-26] MEDS: methylPREDNISolone 40 MG in SYRINGE 0 ML IV SCH ×2 (09:19→20:06)
[2023-05-26] MEDS: levoFLOXacin 750 MG TAB PO SCH (11:05)
--- NOTE | 2023-05-26 12:12 | Hospitalist Progress Note ---
Date of Service May 26, 2023 Assessment & Plan (1) Acute and chronic respiratory failure: Plan Patient is 57-year-old male with PMH of COPD, chronic hypoxemic respiratory failure requiring 2-3 L NC with exertion and HS, ongoing tobacco use, chronic right-sided heart failure, CLL, selective deficiency of IgA and M and other medical problems listed below who presents with acute respiratory failure requiring intubation. History of multiple admissions for acute respiratory failure in the setting of multifactorial issues including COPD exacerbation, multifocal pneumonia and decompensated heart failure. In 2020, was admitted here and then transferred for [facility] for ongoing treatment of MRSA bacteremia in the setting of necrotizing pneumonia, CLL. Was most recently admitted to [facility] in June 2022. with H. influenzae pneumonia. Patient was admitted to ICU for further care. Patient was placed on mechanical ventilation. Patient failed liberation from ventilator for 2 consecutive times. Patient underwent Percutaneous Dilatational Tracheotomy on May 25, 2022. Acute on chronic hypoxemia and hypercapnic respiratory failure status post Percutaneous Dilatational Tracheotomy on May 25, 2022 COPD exacerbation URI with enterovirus/rhinovirus Multilobar pneumonia Recent URI symptoms and increased O2 needs with EMS intubating in the field [employer]ERK Patient failed liberation from ventilator for 2 consecutive times. Patient underwent tracheostomy on May 25, 2022. CT chest on admission: 1. Endotracheal and enteric tubes are in place. 2. Cardiomegaly with evidence of congestive failure. 3. Small right and trace left pleural effusions. 4. Multifocal patchy airspace consolidation is seen throughout both lungs, and there are also multifocal patchy nodular airspace opacities. This is asymmet rically greater on the right, and the appearance favors a multifocal pneumonia. Clinical correlation will be essential. A follow-up chest CT in 3-4 months time is recommended to document resolution and reassess the underlying lung parenchyma/pulmonary nodules. 5. There is marked splenomegaly, as well as upper abdominal, mediastinal, and sternoclavicular lymphadenopathy. There is also likely hilar lymphadenopathy. These findings are nonspecific but could be seen with a lymphoproliferative disorder such as lymphoma. 6. The liver also appears enlarged. 7. Additional findings as above. Patient paralyzed and sedated. Plan as per ICU to wean down sedation as tolerated. On antibiotics with levofloxacin On budesonide, nebs Home Lasix currently on hold; CLL Anemia, thrombocytopenia History of CLL; not on treatment. Follows up with oncology as outpatient Hemoglobin of 6.4 on admission Received 2 units of packed RBC. Also 1 unit of pooled platelets. Platelet count is 42,000. Patient has oozing from tracheostomy site on May 25, 2022; status post 1 unit of platelets. Will need follow-up with oncology as outpatient to discuss further treatment. Acute kidney injury Creatinine 1.5 Likely secondary to sepsis Creatinine improved to 1.4 Chronic right sided heart failure Home lasix course is 80mg BID, currently on hold Hyperkalemia Potassium5.0today DVT Ppx: SCDs Code status: FULL PCP: Reva Dispo: Currently admitted to ICU; recently underwent tracheostomy. Time spent evaluating patient, direct bedside care, chart review, placing orders, interpretation of diagnostic studies, discussion with patient as well as other required patient management activities is 50 minutes Please note the above document was generated using voice recognition software. It may contain grammatical, syntax or spelling errors. Any formal questions or concerns about the content, text or information contained within the body of this dictation should be directly addressed to the provider for clarification Admission and Anticipated Discharge Date Admission Date: May 22, 2023 Subjective Patient underwent tracheostomy yesterday. Found to have oozing at the site of tracheostomy which was controlled. He is currently on ventilator. He is paralyzed and is under sedation. Review of Systems Review of Systems: Unobtainable due to reduced consciousness Physical Exam Physical Exam: Constitutional: Sedated Respiratory: Bilateral mechanical breath sound Cardiovascular: RRR, no murmur, no edema Vessels: no JVD or carotid bruit Chest: normal inspection of chest Abdomen: Soft, nontender. Musculoskeletal: no cyanosis or clubbing, extremities Skin: no rashes, warm and dry normal turgor Neurologic: Sedated, paralyzed. Results & Data Results & Data Vital Signs (Past 12 Hours) Vital Signs Temp Pulse Resp BP Pulse Ox Pulse Ox O2 Del Method 05/26/23 11:30 72 16 100 05/26/23 10:00 37.1 C 75 16 100 05/26/23 10:00 97/53 L 05/26/23 09:00 37.1 C 71 16 100 05/26/23 09:00 99/53 L 05/26/23 08:00 101/52 L 05/26/23 08:00 37.0 C 70 16 100 05/26/23 08:00 Mechanical Vent 05/26/23 08:00 78 05/26/23 07:40 74 16 100 05/26/23 07:00 37.0 C 71 16 100 05/26/23 07:00 101/51 L 05/26/23 06:30 37.0 C 76 16 100 05/26/23 06:30 102/56 L 05/26/23 06:00 37.0 C 74 16 97 05/26/23 06:00 103/53 L 05/26/23 05:30 37.2 C 81 16 97 05/26/23 05:30 111/57 L 05/26/23 05:08 79 16 95 05/26/23 05:00 108/59 L 05/26/23 05:00 37.2 C 82 16 93 05/26/23 04:30 37.2 C 81 16 100 05/26/23 04:30 106/58 L 05/26/23 04:00 107/56 L 05/26/23 04:00 37.2 C 74 16 92 05/26/23 04:00 95 05/26/23 03:30 37.1 C 77 16 92 05/26/23 03:30 113/57 L 05/26/23 03:00 37.0 C 81 16 92 05/26/23 03:00 113/61 05/26/23 02:30 36.9 C 75 16 93 05/26/23 02:30 114/60 05/26/23 02:15 126/68 05/26/23 02:15 36.9 C 87 16 93 05/26/23 02:00 36.9 C 82 16 93 05/26/23 02:00 121/66 05/26/23 01:45 128/67 05/26/23 01:45 36.9 C 83 16 94 05/26/23 01:30 37.0 C 83 16 93 05/26/23 01:30 125/65 05/26/23 01:15 37.0 C 81 16 93 05/26/23 01:15 123/67 05/26/23 01:00 37.0 C 77 16 94 05/26/23 01:00 122/61 05/26/23 00:45 36.9 C 76 16 94 05/26/23 00:45 128/62 05/26/23 00:30 125/61 05/26/23 00:30 36.9 C 81 16 92 05/26/23 00:15 36.8 C 80 16 92 05/26/23 00:15 127/66 O2 Del Method FiO2 05/26/23 11:30 30 05/26/23 10:00 05/26/23 10:00 05/26/23 09:00 05/26/23 09:00 05/26/23 08:00 05/26/23 08:00 05/26/23 08:00 40 05/26/23 08:00 05/26/23 07:40 40 05/26/23 07:00 05/26/23 07:00 40 05/26/23 06:30 05/26/23 06:30 05/26/23 06:00 05/26/23 06:00 05/26/23 05:30 05/26/23 05:30 05/26/23 05:08 40 05/26/23 05:00 05/26/23 05:00 05/26/23 04:30 05/26/23 04:30 05/26/23 04:00 05/26/23 04:00 05/26/23 04:00 Mechanical Vent 05/26/23 03:30 05/26/23 03:30 05/26/23 03:00 05/26/23 03:00 05/26/23 02:30 05/26/23 02:30 05/26/23 02:15 05/26/23 02:15 05/26/23 02:00 05/26/23 02:00 05/26/23 01:45 05/26/23 01:45 05/26/23 01:30 05/26/23 01:30 05/26/23 01:15 05/26/23 01:15 05/26/23 01:00 05/26/23 01:00 05/26/23 00:45 05/26/23 00:45 05/26/23 00:30 05/26/23 00:30 05/26/23 00:15 05/26/23 00:15
[2023-05-26] MEDS ORDERED: ACETAMINOPHEN 1,000 MG/100 ML VIAL IV PRN (12:48)
[2023-05-26 16:09] LABS: Hematocrit (blood only) 24.6 % (42.0-52.0); Hemoglobin 7.4 g/dl (14.0-18.0)
[2023-05-26] MEDS: fentaNYL citrate 2,500 MCG/250 ML BAG IV SCH (18:03)
[2023-05-26] MEDS: PEPTAMEN INTENSE VHP 1.0 CAL 1,000 ML BAG OG SCH (18:26)
[2023-05-27] MEDS: TUBE FEEDING WATER FLUSH NG SCH ×6 (00:24→22:19)
[2023-05-27] MEDS: propofoL 1,000 MG/100 ML VIAL IV SCH ×9 (00:34→23:13)
[2023-05-27] MEDS: fentaNYL citrate 2,500 MCG/250 ML BAG IV SCH ×3 (00:55→22:18)
[2023-05-27] MEDS: INSULIN ASPART PER UNIT CHARGE SC SCH ×2 (00:55→05:42)
[2023-05-27 04:21] LABS: Hematocrit (blood only) 24.5 % (42.0-52.0); Hemoglobin 7.3 g/dl (14.0-18.0); Mean Corpuscular Hemoglobin 31.6 pg (25.0-34.0); Mean Corpuscular Hgb Conc 29.8 g/dL (32.0-36.0); Mean Corpuscular Volume 106.1 fL (80.0-100.0); Mean Platelet Volume 12.3 fL (9.4-12.4); Nucleated RBC # (auto) 0.05 K/uL (0.00-0.12); Nucleated RBC % (auto) 0.1 %; Platelet Count 35 K/uL (130-400); RDW Coefficient of Variation 17.8 % (11.5-14.5); RDW Standard Deviation 69.1 fL (36.4-46.3); Red Blood Count 2.31 M/uL (4.70-6.10); White Blood Count 38.16 K/ul (4.8-10.8)
[2023-05-27 04:28] LABS: BUN Creatinine Ratio 35.4 (10-20); Calcium 8.1 mg/dl (8.6-10.3); Creatinine Clr Calc Pharmacy 87.4 ml/min; Est GFR (African American) 82.6 ml/min; Est GFR (Non-African American) 71.3 ml/min; Magnesium 2.7 mg/dl (1.7-2.4); Phosphorus 5.4 mg/dl (2.5-4.9); Potassium 5.4 mmol/L (3.5-5.1)
[2023-05-27 04:41] LABS: Partial Thromboplastin Ratio 1.3; Partial Thromboplastin Time 36 Seconds (21-31); Prothrombin Time 11.4 Seconds (9.0-12.0)
[2023-05-27 04:55] LABS: Basophils # (auto) 0.09 K/uL (0.00-0.20); Basophils % (auto) 0.2 %; Immature Granulocytes # (auto) 0.06 K/uL (0.01-0.20); Immature Granulocytes % (auto) 0.2 %; Lymphocytes # (auto) 34.55 K/uL (1.20-3.40); Lymphocytes % (auto) 90.5 %; Monocytes # (auto) 2.15 K/uL (0.11-0.59); Monocytes % (auto) 5.6 %; Neutrophils # (auto) 1.31 K/uL (1.40-6.50); Neutrophils % (auto) 3.5 %; Polychromasia 1+; Stomatocytes 2+
--- NOTE | 2023-05-27 07:12 | Critical Care Progress Note ---
Date of Service May 27, 2023 Assessment & Plan (1) Acute respiratory acidosis: (2) Pneumonia: (3) Chronic lymphocytic leukemia: (4) Anemia: (5) Acute hyperkalemia: (6) Sepsis: Plan (1) Acute respiratory acidosis: (2) Pneumonia: (3) Chronic lymphocytic leukemia: (4) Anemia: (5) Acute hyperkalemia: (6) Sepsis: Plan Reason Critically Ill: 57 yo M w/ a PMHx of CLL not on any treatment, HTN, HLD obesity, HFrEF, COPD on oxygen, GERD was brought in and intubated for respiratory distress. Neuro - [facility] ICU: Negative Sedation decreased today; Propofol, fentanyl, Versed for sedation Cardiac - - HFrEF Compensated BNP 76 Respiratory - -- VDRF Multifactorial Likely secondary to COPD exacerbation secondary to entero-/rhinovirus -Respiratory bio fire negative for everything except for entero-/rhinovirus Initial intubation 05/22 --> Extubated 05/24 --> Reintubation secondary to hypercapnic respiratory failure /2 -Tolerated extended SBT, VBG mild hypercapnia at pCO2 65; very encouraging extubation parameters: RSBI 24 respiratory rate 12, negative inspiratory force 22: Extubated to BiPAP 14/10 backup rate 18 -A discussion regarding possible need for tracheostomy was had should the patient fail. He was comfortable with proceeding if necessary, did not want to entertain palliative -Patient desired to have mask removed and attempt to ease, mask was off for about 10 minutes became acutely hypercapnic and agitated recheck VBG pCO2 75 and became somnolent requiring reintubation, plan to discuss with the patient's daughter and the patient's after his pCO2 normalizes while on the ventilator with regard to proceeding with tracheostomy given 2 failures in the setting of encouraging extubation parameters and adequate blood gas while on minimal ventilator settings, and adequate ventilatory parameters while on noninvasive mechanical ventilation. - Tracheostomy performed successfully 05/26, sutured in place w/ 4 nylon sutures; some oozing of blood post-suture but has stopped - Patient has been on volume control ventilator settings, using SIMV mode - Plan is to decrease sedation today (decrease propofol, fentanyl, Versed), see how patient responds, transition from volume to pressure control ventilator settings - Procalcitonin 0.12 -MRSA nasal negative, discontinued vancomycin treat with empiric antibiotics given significant structural lung disease: Respiratory fluoroquinolone -Levaquin 750 mg p.o. 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 On Advair and Spiriva at home -Discontinue IV steroids transition to prednisone: Taper ordered GI - -- History of GERD Continue with pantoprazole RENAL/LYTES - --Hyperkalemia: K, 5.4 -- Metabolic alkalosis: HCO3, 36 - possibly compensation to chronic respiratory acidosis as well as the use of Lasix though recurrence suggests other etiology - -- Ramon catheter to monitor I's and O's ENDO - -- ICU hypoglycemia protocol HEME - -- History of CLL; not on any chemotherapy right now - 2 Unit PRBCs -Additional units of packed red blood cells Peripheral smear: reviewed - trend Hgb daily w/ CBC --Macrocytic anemia, Hgb (6.4 - 10.2 this admission), last Hgb, 7.3 MCV 117 Monitor w/ afternoon H&H --Thrombocytopenia, last Plt, 35 <-- 42 Continue to monitor ID - -- Multilobar pneumonia Mostly affecting the right side Procalcitonin 0.12 Follow-up nasal MRSA was neg - de-escalated to levofloxacin, 750 mg, PO, daily --DVT Prophylaxis VTE: IPC GI: Pantoprazole Lines: Peripheral Diet: speech therapy consult reviewed Admission and Anticipated Discharge Date Admission Date: May 22, 2023 Admission and Anticipated Discharge Date Admission Date: May 22, 2023 Supervising Physician Co-Signing Physician Notes Dr. Santana was resident physician during care of patient. I separately evaluated patient for sung portions of the history and the exam. I was present during the critical portion of medical decision making, and I discussed the case with the resident. I generally agree with the findings and plan. Oozing has largely resolved, we will decrease sedation. Will increase supplemental feedings today. Transition off IV steroids to oral prednisone taper. Patient unfortunately requires extended course of steroids given severe structural COPD/COPD exacerbation. Wean to pressure support ventilation as patient awareness increases. Dose of Lasix for increase fluid retention. I have personally spent 35 minutes of critical care time in the direct manag ement of this patient. This is a life/limb threatening event. This includes time spent evaluating patient, direct bedside care, chart review, placing orders, interpretation of diagnostic studies, discussion with consultants, patient, and/or family members regarding treatment decisions, as well as other required patient management activities. This time is exclusive of all separately billable procedures, and teaching time and separate from and in addition to any other critical care service time. Subjective Patient is a 57 yo M w/ a PMHx of HTN, HLD, COPD, CHrEF, obesity, CLL, tobacco use, and selective deficiency of IgA and IgG who was admitted for worsening respiratory distress and was intubated soon after arrival to the [facility] ED. Patient seen and examined at bedside. He was extubated and currently in pressure-control mode, alert this morning, sedation has been decreased and patient's response is being monitored. Review of Systems Review of Systems: Unobtainable due to endotracheal tube (patient actually has tracheostomy tube, which makes ROS unobtainable) Physical Exam Constitutional: well nourished and + obese; + not healthy appearing Eyes: normal visual ware by confrontation and PERRL Cardiovascular: RRR, no murmur, no edema Extremities: normal capillary refill; no edema Gastrointestinal (Abdomen): normal bowel sounds, soft, nontender, no hepatosplenomegaly Neurologic: moves all extremities Cranial Nerves: PERRL and no nystagmus; + not able to elevate shoulders follows basic one-step commands: thumbs-up b/l, squeezes fingers, wiggles toes, blinks eyes Psychiatric: Orientation: alert; + not oriented x 3 (unable to evaluate secondary to sedation) Results & Data Results & Data Vital Signs (Past 12 Hours) Vital Signs Temp Pulse Resp BP Pulse Ox Pulse Ox O2 Del Method 05/27/23 05:30 37.0 C 67 16 94 05/27/23 05:00 104/51 L 05/27/23 05:00 36.9 C 63 16 94 05/27/23 04:00 111/55 L 05/27/23 04:00 37.1 C 71 16 94 05/27/23 04:00 93 05/27/23 03:18 67 16 93 05/27/23 03:00 111/54 L 05/27/23 03:00 37.1 C 65 16 93 05/27/23 02:00 116/59 L 05/27/23 02:00 37.1 C 67 16 92 05/27/23 01:00 113/54 L 05/27/23 01:00 37.1 C 66 16 92 05/27/23 00:22 71 16 93 05/27/23 00:00 127/63 05/27/23 00:00 37.2 C 78 16 91 05/27/23 00:00 77 05/26/23 23:00 116/59 L 05/26/23 23:00 37.2 C 64 16 92 05/26/23 22:00 116/58 L 05/26/23 22:00 37.3 C 71 16 92 05/26/23 21:00 110/59 L 05/26/23 21:00 37.4 C 68 16 93 05/26/23 20:05 77 16 95 05/26/23 20:00 109/59 L 05/26/23 20:00 37.4 C 73 16 94 05/26/23 20:00 Mechanical Vent 05/26/23 19:51 Mechanical Vent O2 Del Method FiO2 05/27/23 05:30 05/27/23 05:00 05/27/23 05:00 05/27/23 04:00 05/27/23 04:00 05/27/23 04:00 Mechanical Vent 05/27/23 03:18 40 05/27/23 03:00 05/27/23 03:00 05/27/23 02:00 05/27/23 02:00 05/27/23 01:00 05/27/23 01:00 05/27/23 00:22 30 05/27/23 00:00 05/27/23 00:00 05/27/23 00:00 05/26/23 23:00 05/26/23 23:00 05/26/23 22:00 05/26/23 22:00 05/26/23 21:00 05/26/23 21:00 05/26/23 20:05 30 05/26/23 20:00 05/26/23 20:00 05/26/23 20:00 40 05/26/23 19:51 40 (2) Pneumonia Laterality: right Lung location: unspecified part of lung Pneumonia type: due to unspecified organism Qualified Code(s): J18.9 - Pneumonia, unspecified organism (4) Anemia Anemia type: other cause Other causes of anemia: other cause, not classified Qualified Code(s): D64.89 - Other specified anemias (6) Sepsis Acute respiratory failure type: with hypoxia Sepsis acute organ dysfunction status: with acute organ dysfunction Sepsis type: sepsis due to unspecified organism Severe sepsis acute organ dysfunction type: acute respiratory failure Severe sepsis shock status: with septic shock Qualified Code(s): A41.9 - Sepsis, unspecified organism; R65.21 - Severe sepsis with septic shock; J96.01 - Acute respiratory failure with hypoxia
[2023-05-27] MEDS: BUDESONIDE 0.25 MG/2 ML VIAL (PULMICORT) NEB SCH ×2 (07:29→19:24)
[2023-05-27] MEDS: FORMOTEROL 20 MCG/2 ML VIAL INH SCH ×2 (07:29→19:24)
[2023-05-27] MEDS: NAPHAZOLIN/PHENIRAMIN OPH SOLN 75 DROPS/5 ML BTL OP SCH ×4 (11:27→22:19)
--- NOTE | 2023-05-27 11:44 | Hospitalist Progress Note ---
Date of Service May 27, 2023 Assessment & Plan (1) Acute and chronic respiratory failure: Plan Patient is 57-year-old male with PMH of COPD, chronic hypoxemic respiratory failure requiring 2-3 L NC with exertion and HS, ongoing tobacco use, chronic right-sided heart failure, CLL, selective deficiency of IgA and M and other medical problems listed below who presents with acute respiratory failure requiring intubation. History of multiple admissions for acute respiratory failure in the setting of multifactorial issues including COPD exacerbation, multifocal pneumonia and decompensated heart failure. In 2020, was admitted here and then transferred for [place] for ongoing treatment of MRSA bacteremia in the setting of necrotizing pneumonia, CLL. Was most recently admitted to [facility] in June 2022. with H. influenzae pneumonia. Patient was admitted to ICU for further care. Patient was placed on mechanical ventilation. Patient failed liberation from ventilator for 2 consecutive times. Patient underwent Percutaneous Dilatational Tracheotomy on May 25, 2022. Acute on chronic hypoxemia and hypercapnic respiratory failure status post Percutaneous Dilatational Tracheotomy on May 25, 2022 COPD exacerbation URI with enterovirus/rhinovirus Multilobar pneumonia Recent URI symptoms and increased O2 needs with EMS intubating in the field [employer] Patient failed liberation from ventilator for 2 consecutive times. Patient underwent tracheostomy on May 25, 2022. CT chest on admission: 1. Endotracheal and enteric tubes are in place. 2. Cardiomegaly with evidence of congestive failure. 3. Small right and trace left pleural effusions. 4. Multifocal patchy airspace consolidation is seen throughout both lungs, and there are also multifocal patchy nodular airspace opacities. This is asymmet rically greater on the right, and the appearance favors a multifocal pneumonia. Clinical correlation will be essential. A follow-up chest CT in 3-4 months time is recommended to document resolution and reassess the underlying lung parenchyma/pulmonary nodules. 5. There is marked splenomegaly, as well as upper abdominal, mediastinal, and sternoclavicular lymphadenopathy. There is also likely hilar lymphadenopathy. These findings are nonspecific but could be seen with a lymphoproliferative disorder such as lymphoma. 6. The liver also appears enlarged. 7. Additional findings as above. Currently sedated with propofol, fentanyl and Versed. Wean off as tolerated. On antibiotics with levofloxacin On budesonide, nebs Home Lasix currently on hold; CLL Anemia, thrombocytopenia History of CLL; not on treatment. Follows up with oncology as outpatient Hemoglobin of 6.4 on admission Received 2 units of packed RBC. Also 1 unit of pooled platelets. Platelet count is 435,000 today Will need follow-up with oncology as outpatient to discuss further treatment. Acute kidney injury Creatinine 1.5 Likely secondary to sepsis Creatinine improved to 1. 1 today Chronic right sided heart failure Home lasix course is 80mg BID, currently on hold Hyperkalemia Potassium5.0today DVT Ppx: SCDs Code status: FULL PCP: Reva Dispo: Currently admitted to ICU; sedated. Plan is to wean off sedation as tolerated. Time spent evaluating patient, direct bedside care, chart review, placing orders, interpretation of diagnostic studies, discussion with patient as well as other required patient management activities is 50 minutes Please note the above document was generated using voice recognition software. It may contain grammatical, syntax or spelling errors. Any formal questions or concerns about the content, text or information contained within the body of this dictation should be directly addressed to the provider for clarification Admission and Anticipated Discharge Date Admission Date: May 22, 2023 Subjective Patient seen and examined at bedside. He is lying on the bed comfortably; opens his eyes and tracks. He is off paralytics; continues to be on sedation with propofol, fentanyl and Versed. Review of Systems Review of Systems: All systems reviewed & are unremarkable except as noted in Subjective Physical Exam Physical Exam: Constitutional: Sedated; opens his eyes spontaneously. Tracks. Respiratory: Bilateral mechanical breath sound Cardiovascular: RRR, no murmur, no edema Vessels: no JVD or carotid bruit Chest: normal inspection of chest Abdomen: Soft, nontender. Musculoskeletal: no cyanosis or clubbing, extremities Skin: no rashes, warm and dry normal turgor Neurologic: On sedatives. Results & Data Results & Data Vital Signs (Past 12 Hours) Vital Signs Temp Pulse Resp BP Pulse Ox Pulse Ox O2 Del Method 05/27/23 10:23 67 16 92 05/27/23 10:00 37.0 C 66 16 104/54 L 93 05/27/23 09:00 36.9 C 64 16 105/56 L 93 05/27/23 08:15 61 16 95 05/27/23 08:00 37.0 C 69 16 110/55 L 93 05/27/23 08:00 65 05/27/23 07:00 37.0 C 63 16 107/54 L 95 05/27/23 05:30 37.0 C 67 16 94 05/27/23 05:00 104/51 L 05/27/23 05:00 36.9 C 63 16 94 05/27/23 04:00 111/55 L 05/27/23 04:00 37.1 C 71 16 94 05/27/23 04:00 93 Mechanical Vent 05/27/23 03:18 67 16 93 05/27/23 03:00 111/54 L 05/27/23 03:00 37.1 C 65 16 93 05/27/23 02:00 116/59 L 05/27/23 02:00 37.1 C 67 16 92 05/27/23 01:00 113/54 L 05/27/23 01:00 37.1 C 66 16 92 05/27/23 00:22 71 16 93 05/27/23 00:00 127/63 05/27/23 00:00 37.2 C 78 16 91 05/27/23 00:00 77 FiO2 05/27/23 10:23 35 05/27/23 10:00 05/27/23 09:00 05/27/23 08:15 35 05/27/23 08:00 05/27/23 08:00 05/27/23 07:00 05/27/23 05:30 05/27/23 05:00 05/27/23 05:00 05/27/23 04:00 05/27/23 04:00 05/27/23 04:00 05/27/23 03:18 40 05/27/23 03:00 05/27/23 03:00 05/27/23 02:00 05/27/23 02:00 05/27/23 01:00 05/27/23 01:00 05/27/23 00:22 30 05/27/23 00:00 05/27/23 00:00 05/27/23 00:00
[2023-05-27] MEDS: levoFLOXacin 750 MG TAB PO SCH (11:51)
[2023-05-27] MEDS: predniSONE 20 MG TAB PO SCH (11:51)
[2023-05-27] MEDS ORDERED: DESMOPRESSIN ACETATE 30 MCG in SODIUM CHLORIDE 0.9% 50 ML IV ONE (13:00)
[2023-05-27] MEDS: MIDAZOLAM HCL 125 MG/250 ML BAG IV SCH ×3 (15:11→22:18)
[2023-05-27] MEDS: methylPREDNISolone 40 MG in SYRINGE 0 ML IV SCH (16:39)
[2023-05-27] MEDS ORDERED: TRANEXAMIC ACID / 0.7% NACL 1,000 MG/100 ML BAG IV STA (17:45)
[2023-05-27] MEDS ORDERED: FUROSEMIDE INJ 20 MG/2 ML VIAL IV ONE (18:45)
[2023-05-27 19:19] LABS: Hematocrit (blood only) 23.2 % (42.0-52.0); Hemoglobin 7.1 g/dl (14.0-18.0); Mean Corpuscular Hemoglobin 31.8 pg (25.0-34.0); Mean Corpuscular Hgb Conc 30.6 g/dL (32.0-36.0); Mean Platelet Volume 11.9 fL (9.4-12.4); Nucleated RBC # (auto) 0.03 K/uL (0.00-0.12); Nucleated RBC % (auto) 0.1 %; Platelet Count 46 K/uL (130-400); RDW Coefficient of Variation 17.6 % (11.5-14.5); RDW Standard Deviation 67.1 fL (36.4-46.3); Red Blood Count 2.23 M/uL (4.70-6.10); White Blood Count 39.56 K/ul (4.8-10.8)
[2023-05-27 19:50] LABS: Fibrinogen 378 mg/dl (184-400); Prothrombin Time 11.1 Seconds (9.0-12.0)
[2023-05-28] MEDS: fentaNYL citrate 2,500 MCG/250 ML BAG IV SCH ×2 (00:14→12:50)
[2023-05-28] MEDS: TUBE FEEDING WATER FLUSH NG SCH ×6 (01:13→20:58)
[2023-05-28] MEDS: propofoL 1,000 MG/100 ML VIAL IV SCH ×6 (03:11→19:21)
[2023-05-28 04:40] LABS: Hematocrit (blood only) 22.8 % (42.0-52.0); Hemoglobin 6.7 g/dl (14.0-18.0); Mean Corpuscular Hemoglobin 31.3 pg (25.0-34.0); Mean Corpuscular Hgb Conc 29.4 g/dL (32.0-36.0); Mean Corpuscular Volume 106.5 fL (80.0-100.0); Mean Platelet Volume 12.8 fL (9.4-12.4); Nucleated RBC # (auto) 0.02 K/uL (0.00-0.12); Nucleated RBC % (auto) 0.1 %; Platelet Count 55 K/uL (130-400); RDW Coefficient of Variation 17.8 % (11.5-14.5); RDW Standard Deviation 69.7 fL (36.4-46.3); Red Blood Count 2.14 M/uL (4.70-6.10); White Blood Count 36.77 K/ul (4.8-10.8)
[2023-05-28] MEDS ORDERED: SODIUM CHLORIDE 0.9% 250 ML IV PRN (04:42)
[2023-05-28 04:50] LABS: BUN Creatinine Ratio 36.7 (10-20); Calcium 8.3 mg/dl (8.6-10.3); Creatinine Clr Calc Pharmacy 82.6 ml/min; Est GFR (African American) 76.8 ml/min; Est GFR (Non-African American) 66.3 ml/min; Magnesium 2.3 mg/dl (1.7-2.4); Potassium 4.6 mmol/L (3.5-5.1)
[2023-05-28 05:03] LABS: Partial Thromboplastin Ratio 1.3; Partial Thromboplastin Time 37 Seconds (21-31); Prothrombin Time 10.9 Seconds (9.0-12.0)
[2023-05-28 05:25] LABS: Basophils # (auto) 0.07 K/uL (0.00-0.20); Basophils % (auto) 0.2 %; Eosinophils # (auto) 0.02 K/uL (0.00-0.50); Eosinophils % (auto) 0.1 %; Immature Granulocytes # (auto) 0.04 K/uL (0.01-0.20); Immature Granulocytes % (auto) 0.1 %; Lymphocytes # (auto) 33.04 K/uL (1.20-3.40); Lymphocytes % (auto) 89.9 %; Monocytes # (auto) 2.25 K/uL (0.11-0.59); Monocytes % (auto) 6.1 %; Neutrophils # (auto) 1.35 K/uL (1.40-6.50); Neutrophils % (auto) 3.6 %; Polychromasia 1+; Smudge Cells Present; Stomatocytes 1+
--- NOTE | 2023-05-28 06:00 | Billing Data ---
Date of Service May 27, 2023 Coding Level of Care Code 57573 CRITICAL CARE
--- NOTE | 2023-05-28 07:26 | Critical Care Progress Note ---
Date of Service May 28, 2023 Assessment & Plan (1) Acute respiratory acidosis: (2) Pneumonia: (3) Chronic lymphocytic leukemia: (4) Anemia: (5) Acute hyperkalemia: (6) Sepsis: Plan (1) Acute respiratory acidosis: (2) Pneumonia: (3) Chronic lymphocytic leukemia: (4) Anemia: (5) Acute hyperkalemia: (6) Sepsis: Plan Reason Critically Ill: 57 yo M w/ a PMHx of CLL not on any treatment, HTN, HLD obesity, HFrEF, COPD on oxygen, GERD was brought in and intubated for respiratory distress. Neuro - [facility] ICU: Negative - sedation resumed today during fiberoptic bronchoscopy/local wound care procedure - sedation continued post-procedure at decreased rate - propofol, fentanyl, and Versed used for sedation, PRN Cardiac - - HFrEF, Compensated BNP 76 Respiratory - -- VDRF Multifactorial Likely secondary to COPD exacerbation secondary to entero-/rhinovirus -Respiratory bio fire negative for everything except for entero-/rhinovirus Initial intubation 05/22 --> Extubated 05/24 --> Reintubation secondary to hypercapnic respiratory failure /2 - Tolerated extended SBT, VBG mild hypercapnia at pCO2 65; very encouraging extubation parameters: RSBI 24 respiratory rate 12, negative inspiratory force 22: Extubated to BiPAP 14/10 backup rate 18 but patient continued to fail after extubation - A discussion with the patient's daughter was had after his pCO2 normalized while on the ventilator with regard to proceeding with tracheostomy given 2 failures in the setting of encouraging extubation parameters and adequate blood gas while on minimal ventilator settings, and adequate ventilatory parameters while on noninvasive mechanical ventilation. - Tracheostomy performed successfully 05/26, sutured in place w/ 4 nylon sutures; some continued oozing of blood post-suture - Patient was on volume control ventilator settings, using SIMV mode - Patient has been transitioned from volume to pressure control ventilator settings, using a pressure control mode/assist control - Procalcitonin 0.12 -MRSA nasal negative, discontinued vancomycin treat with empiric antibiotics given significant structural lung disease: Respiratory fluoroquinolone -Levaquin 750 mg p.o. 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 On Advair and Spiriva at home -Discontinue IV steroids transition to prednisone: Taper ordered GI - -- History of GERD Continue with pantoprazole RENAL/LYTES - --Hyperkalemia: K, 4.6 <-- 5.4, resolved -- Metabolic alkalosis: HCO3, 35 <-- 36, mild elevation - possibly compensation to chronic respiratory acidosis as well as the use of Lasix though recurrence suggests other etiology, possibly associated w/ ventilator settings - -- Ramon catheter to monitor I's and O's ENDO - -- ICU hypoglycemia protocol HEME - -- History of CLL; not on any chemotherapy right now - 4 Units PRBCs during ICU stay - 1 additional unit of packed red blood cells ordered and ready Peripheral smear: reviewed - trend Hgb daily w/ CBC --Macrocytic anemia, Hgb (6.4 - 10.2 this admission), last Hgb, 7.8 <-- 6.7 (post-transfusion, 1 unit PRBCs, 05/28/22) MCV 117 Monitor w/ PRN H&H, AM CBC --Thrombocytopenia, last Plt, 55 <-- 35 <-- 42 Continue to monitor ID - -- Multilobar pneumonia Mostly affecting the right side Procalcitonin 0.12 Follow-up nasal MRSA was neg - de-escalated to levofloxacin, 750 mg, PO, daily --DVT Prophylaxis VTE: IPC GI: Pantoprazole Lines: Peripheral Diet: speech therapy consult reviewed Admission and Anticipated Discharge Date Admission Date: May 22, 2023 Admission and Anticipated Discharge Date Admission Date: May 22, 2023 Supervising Physician Co-Signing Physician Notes Dr. Santana was resident physician during care of patient. I separately evaluated patient for sung portions of the history and the exam. I was present during the critical portion of medical decision making, and I discussed the case with the resident. I generally agree with the findings and plan. With decrease sedation patient arouses easily follows complex commands however he does swallow and cough and these motions have started mild to moderate oozing at the surgical wound. Consulted/discussed with ENT, they do not perform tracheostomies in the hospital. If patient were to need surgical revision to coagulate oozing he would need transfer to tertiary care center. Discussed local treatment, will locally treat to our maximum at this time and if patient continues to have oozing this could represent a aberrance anterior jugular vein injury necessitating surgical revision, and would necessitate transfer to tertiary care center. Patient otherwise improving, coagulation profiles and fibrinogen within normal limits, he has been treated with DDAVP and platelet transfusion as well as 1 g tranexamic acid. Please refer to procedure note of local wound care and bronchoscopy. I have personally spent 95 minutes of critical care time in the direct management of this patient. This is a life/limb threatening event. This includes time spent evaluating patient, direct bedside care, chart review, placing orders, interpretation of diagnostic studies, discussion with consultants, patient, and/or family members regarding treatment decisions, as well as other required patient management activities. This time is exclusive of all separately billable procedures, and teaching time and separate from and in addition to any other critical care service time. Subjective Patient is a 57 yo M w/ a PMHx of HTN, HLD, COPD, CHrEF, obesity, CLL, tobacco use, and selective deficiency of IgA and IgG who was admitted for worsening respiratory distress and was intubated soon after arrival to the [facility] ED. Patient seen and examined at bedside. He was extubated and currently in pressure-control mode, alert this morning, sedation has been decreased and patient's response is being monitored. Review of Systems Review of Systems: Unobtainable due to reduced consciousness Physical Exam Constitutional: well nourished and + obese; + not healthy appearing Eyes: normal visual ware by confrontation and PERRL Cardiovascular: RRR, no murmur, no edema Extremities: normal capillary refill; no edema Gastrointestinal (Abdomen): normal bowel sounds, soft, nontender, no hepatosplenomegaly Neurologic: moves all extremities Cranial Nerves: PERRL and no nystagmus; + not able to elevate shoulders Psychiatric: Orientation: alert; + not oriented x 3 (unable to evaluate secondary to sedation) Results & Data Results & Data Vital Signs (Past 12 Hours) Vital Signs Temp Pulse Pulse Resp BP Pulse Ox Pulse Ox 05/28/23 07:08 37.3 C 91 H 16 102/51 L 90 05/28/23 06:53 37.3 C 89 16 100/49 L 90 05/28/23 06:51 37.3 C 89 16 100/49 L 90 05/28/23 06:36 37.3 C 87 16 99/52 L 91 05/28/23 05:30 37.3 C 85 16 91 05/28/23 05:00 37.3 C 88 16 91 05/28/23 05:00 97/50 L 05/28/23 04:30 37.3 C 86 16 91 05/28/23 04:00 92/47 L 05/28/23 04:00 37.3 C 85 16 91 05/28/23 04:00 93 05/28/23 03:30 37.3 C 82 16 92 05/28/23 03:24 85 16 93 05/28/23 03:00 37.3 C 84 16 93 05/28/23 03:00 96/47 L 05/28/23 02:30 37.4 C 85 16 93 05/28/23 02:00 94/45 L 05/28/23 02:00 37.4 C 81 16 92 05/28/23 01:30 37.4 C 83 16 93 05/28/23 01:17 37.4 C 82 16 93 05/28/23 01:17 92/45 L 05/28/23 01:00 89/45 L 05/28/23 01:00 37.4 C 82 16 92 05/28/23 00:30 37.3 C 81 16 93 05/28/23 00:00 98/47 L 05/28/23 00:00 37.3 C 82 16 92 05/28/23 00:00 81 05/27/23 23:33 81 16 93 05/27/23 23:30 37.3 C 81 16 93 05/27/23 23:00 96/46 L 05/27/23 23:00 37.3 C 82 16 92 05/27/23 22:30 37.3 C 83 16 92 05/27/23 22:00 96/49 L 05/27/23 22:00 37.3 C 82 16 92 05/27/23 21:30 37.2 C 85 16 92 05/27/23 21:00 37.2 C 85 16 93 05/27/23 21:00 101/54 L 05/27/23 20:58 05/27/23 20:30 37.2 C 82 17 93 05/27/23 20:00 107/51 L 05/27/23 20:00 37.3 C 86 16 93 05/27/23 19:51 37.2 C 86 16 92 05/27/23 19:30 37.3 C 83 17 91 05/27/23 19:26 83 16 91 O2 Del Method O2 Del Method O2 Flow Rate O2 Flow Rate FiO2 05/28/23 07:08 05/28/23 06:53 05/28/23 06:51 05/28/23 06:36 05/28/23 05:30 05/28/23 05:00 Mechanical Vent 45 05/28/23 05:00 05/28/23 04:30 Mechanical Vent 45 05/28/23 04:00 05/28/23 04:00 Mechanical Vent 45 05/28/23 04:00 Mechanical Vent 45 05/28/23 03:30 Mechanical Vent 45 05/28/23 03:24 45 05/28/23 03:00 Mechanical Vent 45 05/28/23 03:00 05/28/23 02:30 05/28/23 02:00 05/28/23 02:00 Mechanical Vent 45 05/28/23 01:30 05/28/23 01:17 Mechanical Vent 45 05/28/23 01:17 05/28/23 01:00 05/28/23 01:00 Mechanical Vent 45 05/28/23 00:30 Mechanical Vent 45 05/28/23 00:00 05/28/23 00:00 05/28/23 00:00 05/27/23 23:33 45 05/27/23 23:30 Mechanical Vent 05/27/23 23:00 05/27/23 23:00 05/27/23 22:30 Mechanical Vent 45 05/27/23 22:00 05/27/23 22:00 05/27/23 21:30 Mechanical Vent 45 05/27/23 21:00 05/27/23 21:00 05/27/23 20:58 Mechanical Vent 45 05/27/23 20:30 05/27/23 20:00 05/27/23 20:00 Mechanical Vent 45 05/27/23 19:51 Mechanical Vent 45 05/27/23 19:30 05/27/23 19:26 45 Resident Activity Tracking Resident Involvement: Resident Care Provided Care Provided: Adult Hospital Medicine (2) Pneumonia Laterality: right Lung location: unspecified part of lung Pneumonia type: due to unspecified organism Qualified Code(s): J18.9 - Pneumonia, unspecified organism (4) Anemia Anemia type: other cause Other causes of anemia: other cause, not classified Qualified Code(s): D64.89 - Other specified anemias (6) Sepsis Acute respiratory failure type: with hypoxia Sepsis acute organ dysfunction status: with acute organ dysfunction Sepsis type: sepsis due to unspecified organism Severe sepsis acute organ dysfunction type: acute respiratory failure Severe sepsis shock status: with septic shock Qualified Code(s): A41.9 - Sepsis, unspecified organism; R65.21 - Severe sepsis with septic shock; J96.01 - Acute respiratory failure with hypoxia
[2023-05-28] MEDS: BUDESONIDE 0.25 MG/2 ML VIAL (PULMICORT) NEB SCH ×2 (07:36→19:58)
[2023-05-28] MEDS: FORMOTEROL 20 MCG/2 ML VIAL INH SCH ×2 (07:37→19:58)
[2023-05-28] MEDS ORDERED: predniSONE 20 MG TAB NG SCH (09:00)
[2023-05-28] MEDS ORDERED: predniSONE 20 MG TAB PO SCH (09:00)
[2023-05-28 09:26] LABS: Hematocrit (blood only) 26.1 % (42.0-52.0); Hemoglobin 7.8 g/dl (14.0-18.0)
[2023-05-28] MEDS: levoFLOXacin 750 MG TAB PO SCH (09:32)
[2023-05-28] MEDS: NAPHAZOLIN/PHENIRAMIN OPH SOLN 75 DROPS/5 ML BTL OP SCH ×4 (09:32→23:07)
[2023-05-28] MEDS: predniSONE 20 MG TAB PO SCH (09:32)
[2023-05-28] MEDS ORDERED: GELATIN SPONGE SZ 100 EXT ONE (10:30)
[2023-05-28] MEDS ORDERED: THROMBIN 5000 UNITS KIT EXT ONE (10:30)
[2023-05-28] MEDS ORDERED: LIDOCAINE 1%/EPINEPHRINE 1:100,000 50 ML VIAL INFIL ONE (10:38)
[2023-05-28] MEDS ORDERED: STAT IV Infusion **Titration per Protocol STA ×2 (10:39→12:36)
[2023-05-28] MEDS ORDERED: VECURONIUM BROMIDE 10 MG in 0.9 % SODIUM CHLORIDE 90 ML IV SCH (10:45)
--- NOTE | 2023-05-28 10:53 | Procedure Note ---
Procedure Note Date of Service May 28, 2023 Note Procedure date: Noted above Procedure: fiberoptic bronchoscopy and local wound care Pre-procedure indication: Continued venous oozing tracheostomy site Post-procedure Diagnosis: same as above Attending Staff: Shahid Easley DO Resident/APC: Esther Skin Prep: Chlorhexidine Anesthesia: Continuous infusion propofol and fentanyl, local infiltration with 1% lidocaine with epinephrine: 10 mL The identity of the patient was confirmed and a bedside time out was performed. Patient was adequately sedated with propofol and fentanyl and under vecuronium neuromuscular blockade to minimize chance for airway dislodgment. Area was locally infiltrated with lidocaine and epinephrine. Stay sutures were cut and tracheostomy was mildly (end-tidal CO2 remained positive) elevated to evacuate remaining Surgicel and clean area. Small amount of thrombin was placed around the edges of the surgical wound. The area was observed for an extended period (approximately 30 minutes), no oozing/bleeding was noted at any point The tracheostomy was then secured with Four #1 nylon sutures A bronchoscope was then inserted through the tracheostomy confirming positioning in the lumen of the trachea. Bilateral lung mucoid impactions were easily suctioned from the distal airways In total the area was observed for 60 minutes at no point was any bleeding/oozing noted. Complications: None Specimens: None Estimated blood loss: Zero Coding CPT Codes Pulmonary/Thoracic - Pulmonary and Thoracic: 65447 Bronchoscopy, reclear airway ([id number]) [facility] [place] Procedure Codes (Charges) Pulmonary/Thoracic Procedure 1: Pulmonary and Thoracic: 88370 Bronchoscopy, reclear airway
[2023-05-28] MEDS ORDERED: VECURONIUM BROMIDE 10 MG VIAL IV ONE (10:57)
[2023-05-28] MEDS ORDERED: VECURONIUM BROMIDE 10 MG VIAL IV STA (10:59)
[2023-05-28] MEDS: ARTIFICIAL TEARS OP OINT 3.5 GM TUBE OP SCH ×4 (12:11→23:07)
--- NOTE | 2023-05-28 12:11 | Billing Data ---
Date of Service May 28, 2023 Coding Level of Care Code 06064 CRITICAL CARE 1ST 30-74M Additional Critical Care Time Additional 30min Critical Care Time: Yes - 36555 Additional Codes Critical Care Time - Additional 30min Critical Care Time: Yes - 51609 ([id number])
[2023-05-28] MEDS ORDERED: PROPOFOL BOLUS FROM BAG IV PRN (12:36)
--- NOTE | 2023-05-28 12:45 | Hospitalist Progress Note ---
Date of Service May 28, 2023 Assessment & Plan (1) Acute and chronic respiratory failure: Plan Patient is 57-year-old male with PMH of COPD, chronic hypoxemic respiratory failure requiring 2-3 L NC with exertion and HS, ongoing tobacco use, chronic right-sided heart failure, CLL, selective deficiency of IgA and M and other medical problems listed below who presents with acute respiratory failure requiring intubation. History of multiple admissions for acute respiratory failure in the setting of multifactorial issues including COPD exacerbation, multifocal pneumonia and decompensated heart failure. In 2020, was admitted here and then transferred for [place] for ongoing treatment of MRSA bacteremia in the setting of necrotizing pneumonia, CLL. Was most recently admitted to [facility] in June 2022. with H. influenzae pneumonia. Patient was admitted to ICU for further care. Patient was placed on mechanical ventilation. Patient failed liberation from ventilator for 2 consecutive times. Patient underwent Percutaneous Dilatational Tracheotomy on May 25, 2022. Acute on chronic hypoxemia and hypercapnic respiratory failure status post Percutaneous Dilatational Tracheotomy on May 25, 2022 COPD exacerbation URI with enterovirus/rhinovirus Multilobar pneumonia Recent URI symptoms and increased O2 needs with EMS intubating in the field [employer] Patient failed liberation from ventilator for 2 times. Patient underwent tracheostomy on May 25, 2022. CT chest on admission: 1. Endotracheal and enteric tubes are in place. 2. Cardiomegaly with evidence of congestive failure. 3. Small right and trace left pleural effusions. 4. Multifocal patchy airspace consolidation is seen throughout both lungs, and there are also multifocal patchy nodular airspace opacities. This is asymmetrically greater on the right, and the appearance favors a multifocal pneumonia. Clinical correlation will be essential. A follow-up chest CT in 3-4 months time is recommended to document resolution and reassess the underlying lung parenchyma/pulmonary nodules. 5. There is marked splenomegaly, as well as upper abdominal, mediastinal, and sternoclavicular lymphadenopathy. There is also likely hilar lymphadenopathy. These findings are nonspecific but could be seen with a lymphoproliferative disorder such as lymphoma. 6. The liver also appears enlarged. 7. Additional findings as above. Currently sedated with propofol, fentanyl and Versed. Continue mechanical ventilation. Patient had oozing from the tracheostomy site after the procedure; underwent Fiberoptic bronchoscopy and local wound care on May 28, 2023 On antibiotics with levofloxacin; plan to treat for 7 days. On budesonide, [facility] Home Lasix currently on hold; CLL Anemia, thrombocytopenia History of CLL; not on treatment. Follows up with oncology as outpatient Hemoglobin of 6.4 on admission Received 2 units of packed RBC. Also 2 unit of pooled platelets. Platelet count is 55,000 today Will need follow-up with oncology as outpatient to discuss further treatment. Acute kidney injury Creatinine 1.5 Likely secondary to sepsis Creatinine slightly improved. Chronic right sided heart failure Home lasix course is 80mg BID, currently on hold Hyperkalemia Improved, continue to monitor daily. DVT Ppx: SCDs Code status: FULL PCP: Reva Dispo: Currently admitted to ICU; sedated. Time spent evaluating patient, direct bedside care, chart review, placing orders, interpretation of diagnostic studies, discussion with patient as well as other required patient management activities is 50 minutes Please note the above document was generated using voice recognition software. It may contain grammatical, syntax or spelling errors. Any formal questions or concerns about the content, text or information contained within the body of this dictation should be directly addressed to the provider for clarification Admission and Anticipated Discharge Date Admission Date: May 22, 2023 Subjective Patient seen and examined at bedside. Overnight, he had oozing from the tracheostomy site. He is back on sedation with propofol, fentanyl and Versed. Review of Systems Review of Systems: Unobtainable due to reduced consciousness Physical Exam Physical Exam: Constitutional: Sedated; ENT; tracheostomy collar in place; blood around the tracheostomy site. Respiratory: Bilateral mechanical breath sound Cardiovascular: RRR, no murmur, no edema Vessels: no JVD or carotid bruit Chest: normal inspection of chest Abdomen: Soft, Musculoskeletal: no cyanosis or clubbing, extremities Skin: no rashes, warm and dry normal turgor Neurologic: Sedated Results & Data Results & Data Vital Signs (Past 12 Hours) Vital Signs Temp Pulse Resp BP Pulse Ox Pulse Ox O2 Del Method 05/28/23 10:15 37.3 C 91 H 16 109/54 L 90 05/28/23 10:00 37.2 C 90 16 111/56 L 90 05/28/23 09:30 37.2 C 88 16 111/57 L 90 05/28/23 09:00 37.2 C 88 16 109/57 L 91 05/28/23 08:45 37.2 C 87 16 110/56 L 91 05/28/23 08:23 37.3 C 90 16 107/54 L 90 05/28/23 08:00 87 05/28/23 07:54 91 H 16 90 05/28/23 07:38 37.3 C 91 H 16 107/51 L 99 05/28/23 07:18 Mechanical Vent 05/28/23 07:08 37.3 C 91 H 16 102/51 L 90 05/28/23 06:53 37.3 C 89 16 100/49 L 90 05/28/23 06:51 37.3 C 89 16 100/49 L 90 05/28/23 06:36 37.3 C 87 16 99/52 L 91 05/28/23 05:30 37.3 C 85 16 91 05/28/23 05:00 37.3 C 88 16 91 Mechanical Vent 05/28/23 05:00 97/50 L 05/28/23 04:30 37.3 C 86 16 91 Mechanical Vent 05/28/23 04:00 92/47 L 05/28/23 04:00 37.3 C 85 16 91 Mechanical Vent 05/28/23 04:00 93 05/28/23 03:30 37.3 C 82 16 92 Mechanical Vent 05/28/23 03:24 85 16 93 05/28/23 03:00 37.3 C 84 16 93 Mechanical Vent 05/28/23 03:00 96/47 L 05/28/23 02:30 37.4 C 85 16 93 05/28/23 02:00 94/45 L 05/28/23 02:00 37.4 C 81 16 92 Mechanical Vent 05/28/23 01:30 37.4 C 83 16 93 05/28/23 01:17 37.4 C 82 16 93 Mechanical Vent 05/28/23 01:17 92/45 L 05/28/23 01:00 89/45 L 05/28/23 01:00 37.4 C 82 16 92 Mechanical Vent O2 Del Method O2 Flow Rate O2 Flow Rate FiO2 05/28/23 10:15 05/28/23 10:00 05/28/23 09:30 05/28/23 09:00 05/28/23 08:45 05/28/23 08:23 05/28/23 08:00 05/28/23 07:54 45 05/28/23 07:38 05/28/23 07:18 05/28/23 07:08 05/28/23 06:53 05/28/23 06:51 05/28/23 06:36 05/28/23 05:30 05/28/23 05:00 45 05/28/23 05:00 05/28/23 04:30 45 05/28/23 04:00 05/28/23 04:00 45 05/28/23 04:00 Mechanical Vent 45 05/28/23 03:30 45 05/28/23 03:24 45 05/28/23 03:00 45 05/28/23 03:00 05/28/23 02:30 05/28/23 02:00 05/28/23 02:00 45 05/28/23 01:30 05/28/23 01:17 45 05/28/23 01:17 05/28/23 01:00 05/28/23 01:00 45
[2023-05-28] MEDS: PEPTAMEN INTENSE VHP 1.0 CAL 1,000 ML BAG OG SCH (14:32)
[2023-05-29] MEDS: propofoL 1,000 MG/100 ML VIAL IV SCH ×4 (00:19→20:29)
[2023-05-29] MEDS: TUBE FEEDING WATER FLUSH NG SCH ×6 (00:20→20:28)
[2023-05-29] MEDS: MIDAZOLAM HCL 125 MG/250 ML BAG IV SCH (00:35)
[2023-05-29] MEDS: ARTIFICIAL TEARS OP OINT 3.5 GM TUBE OP SCH ×6 (02:54→21:56)
[2023-05-29 05:07] LABS: Hematocrit (blood only) 21.6 % (42.0-52.0); Hemoglobin 6.5 g/dl (14.0-18.0); Mean Corpuscular Hemoglobin 30.7 pg (25.0-34.0); Mean Corpuscular Hgb Conc 30.1 g/dL (32.0-36.0); Mean Corpuscular Volume 101.9 fL (80.0-100.0); Mean Platelet Volume 12.6 fL (9.4-12.4); Nucleated RBC # (auto) 0.03 K/uL (0.00-0.12); Nucleated RBC % (auto) 0.1 %; Platelet Count 65 K/uL (130-400); RDW Coefficient of Variation 18.2 % (11.5-14.5); RDW Standard Deviation 66.6 fL (36.4-46.3); Red Blood Count 2.12 M/uL (4.70-6.10); White Blood Count 27.38 K/ul (4.8-10.8)
[2023-05-29 05:44] LABS: Basophils # (auto) 0.04 K/uL (0.00-0.20); Basophils % (auto) 0.1 %; Eosinophils # (auto) 0.03 K/uL (0.00-0.50); Eosinophils % (auto) 0.1 %; Immature Granulocytes # (auto) 0.04 K/uL (0.01-0.20); Immature Granulocytes % (auto) 0.1 %; Lymphocytes # (auto) 24.88 K/uL (1.20-3.40); Lymphocytes % (auto) 90.9 %; Monocytes # (auto) 1.36 K/uL (0.11-0.59); Neutrophils # (auto) 1.03 K/uL (1.40-6.50); Neutrophils % (auto) 3.8 %; RBC Morphology Unremarkable
[2023-05-29 05:56] LABS: BUN Creatinine Ratio 40.4 (10-20); Calcium 8.3 mg/dl (8.6-10.3); Est GFR (African American) 91.3 ml/min; Est GFR (Non-African American) 78.8 ml/min; Magnesium 2.3 mg/dl (1.7-2.4); Phosphorus 3.7 mg/dl (2.5-4.9); Potassium 4.6 mmol/L (3.5-5.1)
[2023-05-29] MEDS: FORMOTEROL 20 MCG/2 ML VIAL INH SCH ×2 (07:01→20:16)
[2023-05-29] MEDS: BUDESONIDE 0.25 MG/2 ML VIAL (PULMICORT) NEB SCH ×2 (07:01→20:17)
[2023-05-29 08:17] LABS: Albumin Level 2.9 gm/dl (3.4-5.0); Bilirubin Direct 4.3 mg/dl (0-0.2); Bilirubin,Total 6.4 mg/dl (0.2-1.0); Total Protein 4.9 gm/dl (6.0-8.3)
[2023-05-29] MEDS ORDERED: SODIUM CHLORIDE 0.9% 250 ML IV PRN (10:22)
[2023-05-29] MEDS ORDERED: FUROSEMIDE 40 MG/4 ML VIAL IV ONE (10:22)
[2023-05-29 10:47] LABS: Reticulocyte % 1.6 % (0.5-2.0); Reticulocytes # 0.03 10^6/uL (0.02-0.10)
[2023-05-29] MEDS: NAPHAZOLIN/PHENIRAMIN OPH SOLN 75 DROPS/5 ML BTL OP SCH ×4 (11:48→21:55)
[2023-05-29] MEDS: levoFLOXacin 750 MG TAB PO SCH (11:48)
[2023-05-29] MEDS: predniSONE 20 MG TAB PO SCH (11:48)
--- NOTE | 2023-05-29 11:52 | Critical Care Progress Note ---
Date of Service May 29, 2023 Assessment & Plan (1) Acute respiratory acidosis: (2) Pneumonia: (3) Chronic lymphocytic leukemia: (4) Anemia: (5) Acute hyperkalemia: (6) Sepsis: Plan Plan Reason Critically Ill: 57 yo M w/ a PMHx of CLL not on any treatment, HTN, HLD obesity, HFrEF, COPD on oxygen, GERD was brought in and intubated for respiratory distress. Neuro - Discontinue sedatives Cardiac - - HFrEF Compensated Respiratory - -- VDRF Multifactorial Likely secondary to COPD exacerbation secondary to entero-/rhinovirus Failed extubation twice, postop day #3 from tracheostomy placed / -No longer oozing from surgical wound site -Tolerating pressure support ventilation -Daily trach collar trials: 1 hour daily if tolerates may increase 1 hour each day -Levaquin 750 mg p.o. 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 On Advair and Spiriva at home -prednisone: Taper ordered GI - -- History of GERD Continue with pantoprazole Constipation -Senna and Colace and fiber to tube feed RENAL/LYTES - --Hyperkalemia: Resolved - -- Ramon catheter to monitor I's and O's -Discontinue Ramon transition to condom cath secondary to fevers ENDO - -- ICU hypoglycemia protocol HEME - CLL; not on any chemotherapy right now Received multiple units packed red blood cells in the setting of acute blood loss anemia secondary to surgical oozing and thrombocytopenia -Peripheral smear: reviewed - Reticulocyte count increasing over course of stay --Thrombocytopenia, status post 2 units platelets -Deferring additional evaluation of CLL to medicine team, no indication to treat urgently given ID - -- Multilobar pneumonia Mostly affecting the right side Procalcitonin 0.12 Follow-up nasal MRSA was neg - de-escalated to levofloxacin, 750 mg, PO, day 5/ -New onset fever with sputum characteristic change -Obtain sputum specimen continue antibiotics --DVT Prophylaxis VTE: IPC GI: Pantoprazole Lines: Peripheral Diet: Tolerating continuous tube feeds, consider transition to bolus feeding Admission and Anticipated Discharge Date Admission Date: May 22, 2023 Supervising Physician Co-Signing Physician Notes I have personally spent 40 minutes of critical care time in the direct management of this patient. This is a life/limb threatening event. This includes time spent evaluating patient, direct bedside care, chart review, placing orders, interpretation of diagnostic studies, discussion with consultants, patient, and/or family members regarding treatment decisions, as well as other required patient management activities. This time is exclusive of all separately billable procedures, and teaching time and separate from and in addition to any other critical care service time. Subjective Overnight patient developed fever, characteristics of sputum have changed. Physical Exam Physical Exam: General: Alert. nontoxic. Skin: Warm, dry, Head: Atraumatic Neck: Tracheostomy in place, no oozing clean dry and intact Cardiovascular: Normal peripheral perfusion Respiratory: no respiratory distress, coarse sounds bilaterally; ventilator settings reviewed Gastrointestinal: Non distended Musculoskeletal: No deformity Results & Data Results & Data Vital Signs (Past 12 Hours) Vital Signs Temp Pulse Resp BP Pulse Ox O2 Del Method FiO2 05/29/23 05:00 37.5 C 94 H 16 91 05/29/23 04:00 37.4 C 95 H 16 05/29/23 04:00 Mechanical Vent 05/29/23 03:00 37.4 C 90 17 107/60 05/29/23 02:55 92 H 16 98 55 05/29/23 02:00 37.5 C 94 H 16 116/61 05/29/23 01:00 37.5 C 95 H 16 110/61 05/29/23 00:00 37.6 C H 94 H 16 106/60 05/29/23 00:00 96 H Critical Care Results & Data Vital Signs (Past 12 Hours) Vital Signs Temp Pulse Resp BP Pulse Ox O2 Del Method FiO2 05/29/23 05:00 37.5 C 94 H 16 91 05/29/23 04:00 37.4 C 95 H 16 05/29/23 04:00 Mechanical Vent 05/29/23 03:00 37.4 C 90 17 107/60 05/29/23 02:55 92 H 16 98 55 05/29/23 02:00 37.5 C 94 H 16 116/61 05/29/23 01:00 37.5 C 95 H 16 110/61 05/29/23 00:00 37.6 C H 94 H 16 106/60 05/29/23 00:00 96 H Lab & Micro Results (Past 24 Hours) RBC 2.12 M/uL (4.70-6.10) L 05/29/23 WBC 27.38 K/ul (4.8-10.8) H 05/29/23 Hgb 6.5 g/dl (14.0-18.0) L* 05/29/23 Hct 21.6 % (42.0-52.0) L 05/29/23 MCV 101.9 fL (80.0-100.0) H 05/29/23 MCH 30.7 pg (25.0-34.0) 05/29/23 MCHC 30.1 g/dL (32.0-36.0) L 05/29/23 RDW Standard Deviation 66.6 fL (36.4-46.3) H 05/29/23 RDW Coefficient of Variation 18.2 % (11.5-14.5) H 05/29/23 Plt Count 65 K/uL (130-400) L 05/29/23 MPV 12.6 fL (9.4-12.4) H 05/29/23 Nucleated Red Blood Cells % (auto) 0.1 % 05/29 Nucleated RBC Absolute Count (auto) 0.03 K/uL (0.00-0.12) 0 05/29/23 Neutrophils (%) (Auto) 3.8 % 05/29/23 Lymphocytes (%) (Auto) 90.9 % 05/29/23 Monocytes # (Auto) 1.36 K/uL (0.11-0.59) H 05/29/23 Eosinophils # (Auto) 0.03 K/uL (0.00-0.50) 05/29/23 Immature Granulocyte % (Auto) 0.1 % 05/29/23 Neutrophils # (Auto) 1.03 K/uL (1.40-6.50) L 05/29/23 Lymphocytes # (Auto) 24.88 K/uL (1.20-3.40) H 05/29/23 Monocytes # (Auto) 1.36 K/uL (0.11-0.59) H 05/29/23 Eosinophils # (Auto) 0.03 K/uL (0.00-0.50) 05/29/23 Basophils # (Auto) 0.04 K/uL (0.00-0.20) 05/29/23 Immature Granulocyte # (Auto) 0.04 K/uL (0.01-0.20) 4 Red Blood Cell Morphology Unremarkable 05/29/23 Na 140 mmol/L (136-145) 05/29/23 K 4.6 mmol/L (3.5-5.1) 05/29/23 Cl 100 mmol/L (98-107) 05/29/23 CO2 36 mmol/L (21-32) H 05/29/23 Anion Gap 4 (3-11) 05/29/23 BUN 42 mg/dl (6-23) H 05/29/23 Creatinine 1.04 mg/dl (0.6-1.4) 05/29/23 Estimated GFR ( Amer) 91.3 ml/min 05/29/23 Estimated GFR (Non-Af Amer) 78.8 ml/min 05/29/23 BUN/Creatinine Ratio 40.4 (10-20) H 05/29/23 Glu 116 mg/dl (70-99(Fasting)) H 05/29/23 Ca 8.3 mg/dl (8.6-10.3) L 05/29/23 Phosphorus Level 3.7 mg/dl (2.5-4.9) 05/29/23 Total Bilirubin 6.4 mg/dl (0.2-1.0) H 05/29/23 Direct Bilirubin 4.3 mg/dl (0-0.2) H 05/29/23 AST 48 U/L (13-39) H 05/29/23 ALT 59 U/L (7-52) H 05/29/23 Alkaline Phosphatase 134 U/L (34-104) H 05/29/23 TP 4.9 gm/dl (6.0-8.3) L 05/29/23 Albumin 2.9 gm/dl (3.4-5.0) L 05/29/23 Mg 2.3 mg/dl (1.7-2.4) 05/29/23 04:33 Calcium Level 8.3 mg/dl (8.6-10.3) L 05/29/23 04:33 I & O Totals 24 Hours 05/28/23 05/29/23 05/30/23 06:59 06:59 06:59 Intake Total 2301.914 / 2301.914 1426.844 / 1426.844 Output Total 1695 / 1695 1515 / 1515 275 / 275 Balance 606.914 / 606.914 -88.156 / -88.156 -275 / -275 Cumulative 05/22/23 14:45 thru 05/29/23 11:06 Intake Total 85506.964 Output Total 95158 Balance 5582.964 RT Ventilator Mngmt (Last Documented) Ventilator Ordered Settings Ventilator Support Mode Assist Control 05/29/23 02:55 Respiratory Rate 16 05/29/23 05:00 Ventilator Tidal Volume 440 05/29/23 02:55 Setting Minute Ventilation 7 05/29/23 02:55 Ventilator Positive Pressure 10 05/27/23 10:23 Support Setting Positive End Expiratory 8 05/29/23 02:55 Pressure Fraction of Inspired Oxygen 55 05/29/23 02:55 Machine Comment Decreased to 35% 05/27/23 08:15 Ventilator - PT Measurements Respiratory Rate 16 Exhaled Tidal Volume 440 Minute Ventilation 7 Peak Inspiratory Airway 29 Pressure Plateau Pressure 19 Respiratory Cycle Inspiratory: 1:3.7 Expiratory Ratio Inspiratory Phase Time 0.8 End-Tidal CO2 54 Static Lung Compliance 40.00 Dynamic Lung Compliance 20.95 Normal Static Lung Compliance 46.00 Patient Measurements Comment TRACH CONTINUOUSLY BLEEDING, PROVIDER AWARE Coding Level of Care Code 02190 CRITICAL CARE 1ST 30-74M Diagnoses Acute respiratory acidosis J96.02 Pneumonia J18.9 Laterality: right Lung location: unspecified part of lung Pneumonia type: due to unspecified organism Chronic lymphocytic leukemia C91.10 Anemia due to other cause, not classified D64.89 Anemia type: other cause Other causes of anemia: other cause, not classified Acute hyperkalemia E87.5 Sepsis A41.9; R65.21; J96.01 Acute respiratory failure type: with hypoxia Sepsis acute organ dysfunction status: with acute organ dysfunction Sepsis type: sepsis due to unspecified organism Severe sepsis acute organ dysfunction type: acute respiratory failure Severe sepsis shock status: with septic shock (2) Pneumonia Laterality: right Lung location: unspecified part of lung Pneumonia type: due to unspecified organism Qualified Code(s): J18.9 - Pneumonia, unspecified organism (4) Anemia Anemia type: other cause Other causes of anemia: other cause, not classified Qualified Code(s): D64.89 - Other specified anemias (6) Sepsis Acute respiratory failure type: with hypoxia Sepsis acute organ dysfunction status: with acute organ dysfunction Sepsis type: sepsis due to unspecified organism Severe sepsis acute organ dysfunction type: acute respiratory failure Severe sepsis shock status: with septic shock Qualified Code(s): A41.9 - Sepsis, unspecified organism; R65.21 - Severe sepsis with septic shock; J96.01 - Acute respiratory failure with hypoxia
--- NOTE | 2023-05-29 13:00 | Hospitalist Progress Note ---
Date of Service May 29, 2023 Assessment & Plan (1) Acute and chronic respiratory failure: Plan Patient is 57-year-old male with PMH of COPD, chronic hypoxemic respiratory failure requiring 2-3 L NC with exertion and HS, ongoing tobacco use, chronic right-sided heart failure, CLL, selective deficiency of IgA and M and other medical problems listed below who presents with acute respiratory failure requiring intubation. History of multiple admissions for acute respiratory failure in the setting of multifactorial issues including COPD exacerbation, multifocal pneumonia and decompensated heart failure. In 2020, was admitted here and then transferred for [place] for ongoing treatment of MRSA bacteremia in the setting of necrotizing pneumonia, CLL. Was most recently admitted to [facility] in June 2022. with H. influenzae pneumonia. Patient was admitted to ICU for further care. Patient was placed on mechanical ventilation. Patient failed liberation from ventilator for 2 consecutive times. Patient underwent Percutaneous Dilatational Tracheotomy on May 25, 2022. 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 Patient underwent tracheostomy on May 25, 2022. CT chest on admission: 1. Endotracheal and enteric tubes are in place. 2. Cardiomegaly with evidence of congestive failure. 3. Small right and trace left pleural effusions. 4. Multifocal patchy airspace consolidation is seen throughout both lungs, and there are also multifocal patchy nodular airspace opacities. This is asymmetrically greater on the right, and the appearance favors a multifocal pneumonia. Clinical correlation will be essential. A follow-up chest CT in 3-4 months time is recommended to document resolution and reassess the underlying lung parenchyma/pulmonary nodules. 5. There is marked splenomegaly, as well as upper abdominal, mediastinal, and sternoclavicular lymphadenopathy. There is also likely hilar lymphadenopathy. These findings are nonspecific but could be seen with a lymphoproliferative disorder such as lymphoma. 6. The liver also appears enlarged. 7. Additional findings as above. Patient had oozing from the tracheostomy site after the procedure; underwent Fiberoptic bronchoscopy and local wound care on May 28, 2023 Mechanical ventilatory support as per ICU On antibiotics with levofloxacin; plan to treat for 7 days. On budesonide, [facility] Home Lasix currently on hold; CLL Anemia, thrombocytopenia History of CLL; not on treatment. Follows up with oncology as outpatient Hemoglobin of 6.4 on admission Received 3 units of packed RBC. Also 2 unit of pooled platelets. Patient will transfuse 1 unit of blood today. Give Lasix 40 mg after transfusion. Will need follow-up with oncology as outpatient to discuss further treatment. Elevated liver enzymes Total bilirubin elevated to 6.4, direct bilirubin4.3 AST/ALT/ALP elevated Discussed with media services specialist regarding the elevated liver enzymes; as per media services specialist; the likely cause for it is the tube feeds which can cause gallbladder to be contracted. Recommend to hold tube feeding, obtain GGT, recheck a.m. labs and ultrasound liver tomorrow AM. Acute kidney injury Creatinine 1.5 Likely secondary to sepsis Creatinine improved. Chronic right sided heart failure Home lasix course is 80mg BID, currently on hold Hyperkalemia Improved, continue to monitor daily. DVT Ppx: SCDs Code status: FULL PCP: Reva Dispo: Currently admitted to ICU; sedated. Time spent evaluating patient, direct bedside care, chart review, placing orders, interpretation of diagnostic studies, discussion with patient as well as other required patient management activities is 50 minutes Please note the above document was generated using voice recognition software. It may contain grammatical, syntax or spelling errors. Any formal questions or concerns about the content, text or information contained within the body of this dictation should be directly addressed to the provider for clarification Admission and Anticipated Discharge Date Admission Date: May 22, 2023 Subjective Patient seen at bedside. He is off sedation; opening his eyes spontaneously. Not in any distress. He is able to follow simple commands. Review of Systems Review of Systems: Unobtainable due to tracheostomy Physical Exam Physical Exam: Constitutional: Awake, comfortable. ENT; tracheostomy collar in place; blood around the tracheostomy site. Respiratory: Bilateral mechanical breath sound Cardiovascular: RRR, no murmur, no edema Vessels: no JVD or carotid bruit Chest: normal inspection of chest Abdomen: Soft, Musculoskeletal: no cyanosis or clubbing, extremities Skin: no rashes, warm and dry normal turgor Neurologic: Awake, able to follow simple commands. Results & Data Results & Data Vital Signs (Past 12 Hours) Vital Signs Temp Pulse Resp BP Pulse Ox O2 Del Method FiO2 05/29/23 11:48 104 H 22 96 55 05/29/23 11:44 38 C H 101 H 20 127/65 95 05/29/23 10:40 37.4 C 89 20 112/78 91 05/29/23 10:40 37.4 C 89 20 112/78 97 05/29/23 07:30 98 H 18 93 55 05/29/23 05:00 37.5 C 94 H 16 91 05/29/23 04:00 37.4 C 95 H 16 05/29/23 04:00 Mechanical Vent 05/29/23 03:00 37.4 C 90 17 107/60 05/29/23 02:55 92 H 16 98 55 05/29/23 02:00 37.5 C 94 H 16 116/61 05/29/23 01:00 37.5 C 95 H 16 110/61
[2023-05-29] MEDS: DOCUSATE SODIUM/SENNA 50/8.6MG TAB PO SCH (13:41)
[2023-05-29] MEDS: METHYLCELLULOSE POWDER 454 GM JAR PO SCH (13:41)
[2023-05-29] MEDS ORDERED: ALBUT/IPRATROP 3MG/0.5MG NEB 3 ML VIAL NEB SCH (15:00)
[2023-05-29] MEDS ORDERED: PIPER/TAZO 4.5g in D5W MINI-B 100 ML IV ONE (16:30)
[2023-05-29] MEDS ORDERED: ONDANSETRON INJ 2 MG/ML 2 ML VIAL ONE (16:37)
[2023-05-29] MEDS ORDERED: ONDANSETRON INJ 2 MG/ML 2 ML VIAL IV STA (16:55)
[2023-05-29] MEDS ORDERED: METHYLNALTREXONE BROMIDE 12 MG/0.6 ML VIAL SQ ONE (17:10)
[2023-05-29] MEDS ORDERED: METOCLOPRAMIDE HCL INJ 5 MG/ML 2 ML VIAL IV ONE (17:43)
[2023-05-29] MEDS ORDERED: SODIUM CHLOR 7% 4 ML NEB NEB SCH (19:00)
[2023-05-29] MEDS: fentaNYL citrate 2,500 MCG/250 ML BAG IV SCH (19:18)
--- NOTE | 2023-05-29 19:55 | XRay Report ---
PA CHEST RADIOGRAPH AND UPRIGHT AND SUPINE AP RADIOGRAPHS OF THE ABDOMEN CLINICAL HISTORY: Bloating. COMPARISON STUDY: KUB May 25, 2023. Chest radiograph May 26, 2023. Chest CT May 22, 2023. FINDINGS: Tracheostomy tube is in place. Tip of feeding tube is within the body of the stomach. Trac e right pleural effusion is present. There is no pneumothorax. Asymmetric interstitial thickening and airspace opacities within the right lung have improved since prior chest radiograph. Cardiomediastin al silhouette is stable. Mild left lung opacities are also slightly improved. There is no evidence fo r free air. There is moderate gaseous distention of the stomach. No evidence for a bowel obstruction. The bowel gas pattern is normal. There is a moderate amount of stool within the rectum. IMPRESSION: 1. Moderate gaseous distention of the stomach. Tip of feeding tube within the body of the stomach. 2. No evidence for a bowel obstruction. No free air. 3. Interval improvement in bilateral airspace opacities and interstitial thickening, greater within t he right lung. 4. Trace right pleural effusion. No pneumothorax. ACT 112: Negative or not required by law. Electronically signed by: Chepe Laguna M.D. 05/29/2023 7:53 PM
[2023-05-29] MEDS: ONDANSETRON INJ 2 MG/ML 2 ML VIAL ONE ×2 (21:30→21:33)
[2023-05-29] MEDS: ONDANSETRON INJ 2 MG/ML 2 ML VIAL IV PRN (21:33)
[2023-05-29] MEDS: PIPERACILLIN/TAZOBACTAM 4.5 GM in DEXTROSE 5% MINI-B 100 ML IV SCH (21:55)
[2023-05-30] MEDS: TUBE FEEDING WATER FLUSH NG SCH (01:55)
[2023-05-30] MEDS: ARTIFICIAL TEARS OP OINT 3.5 GM TUBE OP SCH ×3 (05:01→07:28)
[2023-05-30 05:51] LABS: Alanine Aminotransferase 50 U/L (7-52); Albumin Globulin Ratio 1.5 (0.9-2); Albumin Level 3.4 gm/dl (3.4-5.0); Alkaline Phosphatase 164 U/L (34-104); Anion Gap 4 (3-11); Aspartate Aminotransferase 37 U/L (13-39); BUN Creatinine Ratio 39.1 (10-20); Bilirubin Direct 1.3 mg/dl (0-0.2); Bilirubin,Total 2.8 mg/dl (0.2-1.0); Blood Urea Nitrogen 43 mg/dl (6-23); Calcium 8.7 mg/dl (8.6-10.3); Carbon Dioxide 40 mmol/L (21-32); Chloride 99 mmol/L (98-107); Creatinine Clr Calc Pharmacy 87.9 ml/min; Est GFR (African American) 85.3 ml/min; Est GFR (Non-African American) 73.6 ml/min; Globulin 2.2 gm/dl (2.5-4.0); Glucose 115 mg/dl (70-99(Fasting)); Lipase 11 U/L (11-82); Magnesium 2.5 mg/dl (1.7-2.4); Potassium 4.5 mmol/L (3.5-5.1); Sodium 143 mmol/L (136-145); Total Protein 5.6 gm/dl (6.0-8.3); Triglycerides 289 mg/dl (0-150)
[2023-05-30 05:52] LABS: Hematocrit (blood only) 24.5 % (42.0-52.0); Hemoglobin 7.4 g/dl (14.0-18.0); Mean Corpuscular Hemoglobin 30.7 pg (25.0-34.0); Mean Corpuscular Hgb Conc 30.2 g/dL (32.0-36.0); Mean Corpuscular Volume 101.7 fL (80.0-100.0); Mean Platelet Volume 12.5 fL (9.4-12.4); Nucleated RBC # (auto) 0.03 K/uL (0.00-0.12); Nucleated RBC % (auto) 0.1 %; Platelet Count 69 K/uL (130-400); RDW Coefficient of Variation 17.5 % (11.5-14.5); RDW Standard Deviation 64.4 fL (36.4-46.3); Red Blood Count 2.41 M/uL (4.70-6.10); White Blood Count 33.05 K/ul (4.8-10.8)
[2023-05-30] MEDS: PIPERACILLIN/TAZOBACTAM 4.5 GM in DEXTROSE 5% MINI-B 100 ML IV SCH (06:17)
[2023-05-30 06:23] LABS: Basophils # (auto) 0.08 K/uL (0.00-0.20); Basophils % (auto) 0.2 %; Eosinophils # (auto) 0.01 K/uL (0.00-0.50); Immature Granulocytes # (auto) 0.04 K/uL (0.01-0.20); Immature Granulocytes % (auto) 0.1 %; Lymphocytes # (auto) 30.58 K/uL (1.20-3.40); Lymphocytes % (auto) 92.5 %; Monocytes # (auto) 1.14 K/uL (0.11-0.59); Monocytes % (auto) 3.4 %; Neutrophils % (auto) 3.8 %; Smudge Cells Present
[2023-05-30] MEDS: ONDANSETRON INJ 2 MG/ML 2 ML VIAL IV PRN (07:27)
[2023-05-30] MEDS: NAPHAZOLIN/PHENIRAMIN OPH SOLN 75 DROPS/5 ML BTL OP SCH ×4 (07:28→20:10)
--- NOTE | 2023-05-30 07:39 | Ultrasound Report ---
US liver CLINICAL HISTORY: Elevated liver enzymes TECHNIQUE: Multiple real-time sonographic images of the right upper quadrant were obtained. Comparison: Comparison is made to prior quadrant ultrasound 06/28/2022 FINDINGS: Exam is limited due to tracheostomy and CPAP. The liver is diffusely homogenous with normal contour a nd echogenicity. Liver echotexture is mildly heterogeneous without acute abnormality. Main portal vei n is patent. No intrahepatic ductal dilatation is seen. Low level internal echoes are identified la yering dependently within the gallbladder, which is consistent with gallbladder sludge. Prominent gal lbladder wall measuring 4.5 mm. No pericholecystic fluid is seen. Sullivan's sign cannot be assessed. T he common duct measures 0.4 cm in diameter at the level of the hepatic artery. The pancreas is not w ell visualized secondary to overlying bowel gas. The right kidney shows normal echogenicity, cortical thickness and renal contour. The right kidney sh ows no evidence of hydronephrosis or mass. No ascites or free fluid is seen in Mata's pouch. IMPRESSION: 1. No hepatic abnormality. Common bile duct is dilated. 2. Gallbladder sludge with chronically prominent gallbladder wall. Sullivan's sign cannot be assessed. ACT 112: Negative or not required by law. Electronically signed by: Fer Rome M.D. 05/30/2023 7:36 AM
[2023-05-30] MEDS: fentaNYL citrate 2,500 MCG/250 ML BAG IV SCH ×2 (07:50→07:51)
[2023-05-30] MEDS: FORMOTEROL 20 MCG/2 ML VIAL INH SCH ×2 (07:51→20:21)
[2023-05-30] MEDS: BUDESONIDE 0.25 MG/2 ML VIAL (PULMICORT) NEB SCH ×2 (07:51→20:22)
[2023-05-30] MEDS: DOCUSATE SODIUM/SENNA 50/8.6MG TAB PO SCH (07:51)
[2023-05-30] MEDS: METHYLCELLULOSE POWDER 454 GM JAR PO SCH (07:51)
--- NOTE | 2023-05-30 08:22 | XRay Report ---
XR chest 1V portable HISTORY: Respiratory failure. eval lung ware and lines/tubes COMPARISON: Chest 05/29/2023. FINDINGS: No pneumothorax. Trace right pleural effusion is again noted. The heart remains borderline enlarged. There is diffuse interstitial/vascular thickening which has slightly progressed. This sugge sts progressive pulmonary edema. Hazy airspace opacities within the left lung have also progressed. N o acute fractures identified. The nasogastric tube is been removed. IMPRESSION: 1. Interval progression of the interstitial/vascular thickening and left lung airspace opacities. Thi s suggests progressive pulmonary edema. 2. Tracheostomy tube is unchanged in position. ACT 112: Negative or not required by law. Electronically signed by: Roby Lane M.D. 05/30/2023 8:20 AM
[2023-05-30] MEDS ORDERED: predniSONE 20 MG TAB PO SCH (09:00)
--- NOTE | 2023-05-30 11:32 | Critical Care Progress Note ---
Date of Service May 30, 2023 Assessment & Plan (1) Acute respiratory acidosis: (2) Pneumonia: (3) Chronic lymphocytic leukemia: (4) Anemia: (5) Acute hyperkalemia: (6) Sepsis: Plan Impression: 57 yo M w/ a PMHx of CLL not on any treatment, HTN, HLD obesity, HFrEF, COPD on oxygen, GERD was brought in and intubated for respiratory distress. 24-hour events: Patient was maintained on CPAP overnight. He has not had any issues with bleeding from the tracheostomy overnight. He is been hemodynamically stable. He continues to complain of some nausea. Recommendations: Neuro -off all sedatives. Appears neurologically intact. Initiate PT and OT. He is deconditioned and will require significant rehab. No other issues Cardiac -echocardiogram from 05/23/2023 showed an EF of 60 to 70% with grade 1 diastolic dysfunction and mild aortic sclerosis without stenosis. No evidence of pulmonary hypertension. Continue blood pressure and heart rate control. The patient is 4.3 L positive since admission. Avoid additional IV fluids and consider gentle diuresis depending on clinical response. Respiratory -respiratory failure with COPD exacerbation secondary to rhinovirus. Tracheostomy placed 05/24/23 failed extubation attempts. He is tolerating CPAP. Transition to trach collar today. Will provide nocturnal ventilatory support tonight and see how he does. He is currently on steroids but is not overtly bronchospastic and I think these can be tapered off relatively quickly. Continue Perforomist, budesonide, and DuoNebs during the day. Can transition back to Advair and Spiriva once inhalers are appropriate. Oozing from the tracheostomy appears to have resolved and may have been related to low platelets. Continue to observe clinically. GI -patient continues to have issues with nausea. There was concern about an aspiration event associated with his feeding tube which has since been removed. Will ask speech therapy to evaluate the patient today and see how he does with a swallow evaluation. His tracheostomy cuff is deflated currently. If the patient fails swallow evaluation, will need to consider enteric access potentially with repeating the nasogastric tube. I suspect his feeding issues should resolve and would not require PEG tube placement. Continue bowel protocol. Abnormal LFTs trending back down with the exception of alk phos which may be delayed. Triglycerides were high and will be repeated in a few days. RENAL/LYTES -no current issues. Initiate diuresis and ICU electrolyte replacement protocol. -discontinue Ramon catheter ENDO - glycemic control per protocol HEME -history of CLL not on any therapy. Remains with elevated white blood cell count with decreased hemoglobin and hematocrit and low platelets. Hemoglobin is stable and no indication of bleeding. Hold additional blood transfusion and platelet transfusion. Will consult oncology for additional recommendations and to ensure the patient has appropriate outpatient follow-up. ID -patient with mild persistent temperature elevation. White blood cell counts not reliable in the setting of CLL. He is completed 6 days of Levaquin. In addition he received 2 days of meropenem, 1 days of cefepime, and 2 days of vancomycin. He started on Zosyn yesterday. Fevers may be related to a viral source. Gram stain from the respiratory culture showed gram-negative rods gram- positive cocci and many epithelial cells with moderate PMNs. Cultures are pending. Procalcitonin was negative on admission. Think antibiotics can be discontinued and the patient followed clinically at this point in time. His x- ray today does not demonstrate acute worsening of airspace opacity VTE: IPC, holding chemical prophylaxis due to thrombocytopenia GI: Pantoprazole Lines: Peripheral Diet: Await swallow evaluation Continue to observe in ICU but if the patient respiratory status improves, he can likely be transitioned out of the intensive care unit. Discussed with case management. His resources make LTAC limited possibility. Will see if we can get him to only be trach dependent although again I suspect his options with the newly placed tracheostomy are going to be severely limited. Potentially we can work on getting him capped and then decannulated in the future. Admission and Anticipated Discharge Date Admission Date: May 22, 2023 Subjective Patient seen and examined. EMR reviewed. Discussed on multidisciplinary rounds and with bedside critical care nurse as well as with off going gaming department head and overnight critical care LIANNE. Patient is awake alert and cooperative this morning. He has been on CPAP at 8 cmH2O overnight. Has not had any bleeding issues associated with his tracheostomy. He feels like he is getting adequate ventilation. He is complaining of some mild nausea. He did receive Zofran earlier this morning. His medical history and review of systems are otherwise unchanged Review of Systems Review of Systems: All systems reviewed & are unremarkable except as noted in Subjective Physical Exam Constitutional: WD/WN, vitals as above ENMT: Trach is clean dry and intact with stay sutures in place. No evidence of bleeding. Neck: trachea midline, no thyromegaly Respiratory: normal respiratory effort, lungs clear to auscultation Cardiovascular: RRR, no murmur, no edema Gastrointestinal (Abdomen): normal bowel sounds, soft, nontender, no hepatosplenomegaly Musculoskeletal: Extremities: extremities normal to inspection Skin: no rashes, warm and dry Neurologic: Nonfocal exam Lymphatic: no cervical lymphadenopathy Results & Data Results & Data Vital Signs (Past 12 Hours) Vital Signs Temp Pulse Pulse Resp BP Pulse Ox O2 Del Method 05/30/23 08:20 100 H 91 05/30/23 07:52 105 H 24 95 Mechanical Vent 05/30/23 04:00 38.3 C H 108 H 22 122/51 L 95 05/30/23 04:00 05/30/23 03:37 93 H 19 97 05/30/23 03:00 38.4 C H 108 H 20 126/55 L 94 05/30/23 02:03 112 H 05/30/23 02:00 38.5 C H 106 H 21 96/51 L 97 05/30/23 01:00 38.5 C H 106 H 21 119/61 97 05/30/23 00:33 112 H 27 H 96 05/30/23 00:00 38.3 C H 83 21 127/65 96 O2 Del Method FiO2 05/30/23 08:20 05/30/23 07:52 45 05/30/23 04:00 05/30/23 04:00 Mechanical Vent 05/30/23 03:37 45 05/30/23 03:00 05/30/23 02:03 05/30/23 02:00 05/30/23 01:00 05/30/23 00:33 50 05/30/23 00:00 Critical Care Results & Data Vital Signs (Past 12 Hours) Vital Signs Temp Pulse Pulse Resp BP Pulse Ox O2 Del Method 05/30/23 08:20 100 H 91 05/30/23 07:52 105 H 24 95 Mechanical Vent 05/30/23 04:00 38.3 C H 108 H 22 122/51 L 95 05/30/23 04:00 05/30/23 03:37 93 H 19 97 05/30/23 03:00 38.4 C H 108 H 20 126/55 L 94 05/30/23 02:03 112 H 05/30/23 02:00 38.5 C H 106 H 21 96/51 L 97 05/30/23 01:00 38.5 C H 106 H 21 119/61 97 05/30/23 00:33 112 H 27 H 96 05/30/23 00:00 38.3 C H 83 21 127/65 96 O2 Del Method FiO2 05/30/23 08:20 05/30/23 07:52 45 05/30/23 04:00 05/30/23 04:00 Mechanical Vent 05/30/23 03:37 45 05/30/23 03:00 05/30/23 02:03 05/30/23 02:00 05/30/23 01:00 05/30/23 00:33 50 05/30/23 00:00 Lab & Micro Results (Past 24 Hours) RBC 2.41 M/uL (4.70-6.10) L 05/30/23 WBC 33.05 K/ul (4.8-10.8) H* 05/30/23 Hgb 7.4 g/dl (14.0-18.0) L 05/30/23 Hct 24.5 % (42.0-52.0) L 05/30/23 MCV 101.7 fL (80.0-100.0) H 05/30/23 MCH 30.7 pg (25.0-34.0) 05/30/23 MCHC 30.2 g/dL (32.0-36.0) L 05/30/23 RDW Standard Deviation 64.4 fL (36.4-46.3) H 05/30/23 RDW Coefficient of Variation 17.5 % (11.5-14.5) H 05/30/23 Plt Count 69 K/uL (130-400) L 05/30/23 MPV 12.5 fL (9.4-12.4) H 05/30/23 Nucleated Red Blood Cells % (auto) 0.1 % 05/30 Nucleated RBC Absolute Count (auto) 0.03 K/uL (0.00-0.12) 0 05/30/23 Neutrophils (%) (Auto) 3.8 % 05/30/23 Lymphocytes (%) (Auto) 92.5 % 05/30/23 Monocytes # (Auto) 1.14 K/uL (0.11-0.59) H 05/30/23 Eosinophils # (Auto) 0.01 K/uL (0.00-0.50) 05/30/23 Immature Granulocyte % (Auto) 0.1 % 05/30/23 Neutrophils # (Auto) 1.20 K/uL (1.40-6.50) L 05/30/23 Lymphocytes # (Auto) 30.58 K/uL (1.20-3.40) H 05/30/23 Monocytes # (Auto) 1.14 K/uL (0.11-0.59) H 05/30/23 Eosinophils # (Auto) 0.01 K/uL (0.00-0.50) 05/30/23 Basophils # (Auto) 0.08 K/uL (0.00-0.20) 05/30/23 Immature Granulocyte # (Auto) 0.04 K/uL (0.01-0.20) 4 Smudge Cells Present 05/30/23 Na 143 mmol/L (136-145) 05/30/23 K 4.5 mmol/L (3.5-5.1) 05/30/23 Cl 99 mmol/L (98-107) 05/30/23 CO2 40 mmol/L (21-32) H 05/30/23 Anion Gap 4 (3-11) 05/30/23 BUN 43 mg/dl (6-23) H 05/30/23 Creatinine 1.10 mg/dl (0.6-1.4) 05/30/23 Estimated GFR ( Amer) 85.3 ml/min 05/30/23 Estimated GFR (Non-Af Amer) 73.6 ml/min 05/30/23 BUN/Creatinine Ratio 39.1 (10-20) H 05/30/23 Glu 115 mg/dl (70-99(Fasting)) H 05/30/23 Ca 8.7 mg/dl (8.6-10.3) 05/30/23 Total Bilirubin 2.8 mg/dl (0.2-1.0) H 05/30/23 Direct Bilirubin 1.3 mg/dl (0-0.2) H 05/30/23 AST 37 U/L (13-39) 05/30/23 ALT 50 U/L (7-52) 05/30/23 Alkaline Phosphatase 164 U/L (34-104) H 05/30/23 TP 5.6 gm/dl (6.0-8.3) L 05/30/23 Albumin 3.4 gm/dl (3.4-5.0) 05/30/23 Globulin 2.2 gm/dl (2.5-4.0) L 05/30/23 Albumin/Globulin Ratio 1.5 (0.9-2) 05/30/23 GGT Pending 05/30/23 Mg 2.5 mg/dl (1.7-2.4) H 05/30/23 05:00 Calcium Level 8.7 mg/dl (8.6-10.3) 05/30/23 05:00 Microbiology 05/29/23 Unknown Gram Stain - Final Sputum,Vent Suction Sputum Culture - Preliminary Moderate normal jennifer present, final report to follow. 05/25/23 14:50 Fungal Smear - Final Ba Lavage,Right Lower Lobe Fungal Culture - Preliminary No yeast or fungus isolated - Report 1, Additional Report to Follow. Diagnostic Findings (Past 24 Hours) Chest/Abdomen X-ray 05/29/23 17:07 PA CHEST RADIOGRAPH AND UPRIGHT AND SUPINE AP RADIOGRAPHS OF THE ABDOMEN CLINICAL HISTORY: Bloating. COMPARISON STUDY: KUB May 25, 2023. Chest radiograph May 26, 2023. Chest CT May 22, 2023. FINDINGS: Tracheostomy tube is in place. Tip of feeding tube is within the body of the stomach. Trace right pleural effusion is present. There is no pneumothorax. Asymmetric interstitial thickening and airspace opacities within the right lung have improved since prior chest radiograph. Cardiomediastinal silhouette is stable. Mild left lung opacities are also slightly improved. There is no evidence for free air. There is moderate gaseous distention of the stomach. No evidence for a bowel obstruction. The bowel gas pattern is normal. There is a moderate amount of stool within the rectum. IMPRESSION: 1. Moderate gaseous distention of the stomach. Tip of feeding tube within the body of the stomach. 2. No evidence for a bowel obstruction. No free air. 3. Interval improvement in bilateral airspace opacities and interstitial thickening, greater within the right lung. 4. Trace right pleural effusion. No pneumothorax. ACT 112: Negative or not required by law. Electronically signed by: Chepe Laguna M.D. 05/29/2023 7:53 PM Chest X-Ray 05/30/23 05:00 XR chest 1V portable HISTORY: Respiratory failure. eval lung ware and lines/tubes COMPARISON: Chest 05/29/2023. FINDINGS: No pneumothorax. Trace right pleural effusion is again noted. The heart remains borderline enlarged. There is diffuse interstitial/vascular thickening which has slightly progressed. This suggests progressive pulmonary edema. Hazy airspace opacities within the left lung have also progressed. No acute fractures identified. The nasogastric tube is been removed. IMPRESSION: 1. Interval progression of the interstitial/vascular thickening and left lung ai rspace opacities. This suggests progressive pulmonary edema. 2. Tracheostomy tube is unchanged in position. ACT 112: Negative or not required by law. Electronically signed by: Roby Lane M.D. 05/30/2023 8:20 AM Liver Ultrasound 05/30/23 07:00 US liver CLINICAL HISTORY: Elevated liver enzymes TECHNIQUE: Multiple real-time sonographic images of the right upper quadrant were obtained. Comparison: Comparison is made to prior quadrant ultrasound 06/28/2022 FINDINGS: Exam is limited due to tracheostomy and CPAP. The liver is diffusely homogenous with normal contour and echogenicity. Liver echotexture is mildly heterogeneous without acute abnormality. Main portal vein is patent. No intrahepatic ductal dilatation is seen. Low level internal echoes are identified layering dependently within the gallbladder, which is consistent with gallbladder sludge. Prominent gallbladder wall measuring 4.5 mm. No pericholecystic fluid is seen. Sullivan's sign cannot be assessed. The common duct measures 0.4 cm in diameter at the level of the hepatic artery. The pancreas is not well visualized secondary to overlying bowel gas. The right kidney shows normal echogenicity, cortical thickness and renal contour. The right kidney shows no evidence of hydronephrosis or mass. No ascites or free fluid is seen in Mata's pouch. IMPRESSION: 1. No hepatic abnormality. Common bile duct is dilated. 2. Gallbladder sludge with chronically prominent gallbladder wall. Sullivan's sign cannot be assessed. ACT 112: Negative or not required by law. Electronically signed by: Fer Rome M.D. 05/30/2023 7:36 AM I & O Totals 24 Hours 01/07/24 01/08/24 01/09/24 06:59 06:59 06:59 Intake Total 1426.844 / 1426.844 835.498 / 835.498 100 / 100 Output Total 1515 / 1515 2256 / 2256 200 / 200 Balance -88.156 / -88.156 -1420.502 / -1420.502 -100 / -100 Cumulative 05/22/23 14:45 thru 05/30/23 11:02 Intake Total 47325.462 Output Total 74642 Balance 4337.462 RT Ventilator Mngmt (Last Documented) Ventilator Ordered Settings Ventilator Support Mode CPAP 05/30/23 03:37 Respiratory Rate 24 05/30/23 07:52 Ventilator Tidal Volume 440 05/29/23 07:30 Setting Minute Ventilation 6 05/30/23 03:37 Ventilator Positive Pressure 0 05/29/23 20:24 Support Setting Positive End Expiratory 8 05/30/23 03:37 Pressure Fraction of Inspired Oxygen 45 05/30/23 07:52 Machine Comment Decreased to 35% 05/27/23 08:15 Ventilator - PT Measurements Respiratory Rate 24 Exhaled Tidal Volume 311 Minute Ventilation 6 Peak Inspiratory Airway 11 Pressure Plateau Pressure 22 Respiratory Cycle Inspiratory: 1:3.7 Expiratory Ratio Inspiratory Phase Time 0.8 End-Tidal CO2 56 Static Lung Compliance 31.43 Dynamic Lung Compliance 103.67 Normal Static Lung Compliance 50.00 Patient Measurements Comment pt placed on 20L/55% FiO2 trach collar per MD verbal order. cuff deflated, pt tolerating well. Coding Level of Care Code 40748 SUB INP/OBS CARE 3/50MIN Diagnoses Acute respiratory acidosis J96.02 Pneumonia J18.9 Laterality: right Lung location: unspecified part of lung Pneumonia type: due to unspecified organism Chronic lymphocytic leukemia C91.10 Anemia due to other cause, not classified D64.89 Anemia type: other cause Other causes of anemia: other cause, not classified Acute hyperkalemia E87.5 Sepsis A41.9; R65.21; J96.01 Acute respiratory failure type: with hypoxia Sepsis acute organ dysfunction status: with acute organ dysfunction Sepsis type: sepsis due to unspecified organism Severe sepsis acute organ dysfunction type: acute respiratory failure Severe sepsis shock status: with septic shock (2) Pneumonia Laterality: right Lung location: unspecified part of lung Pneumonia type: due to unspecified organism Qualified Code(s): J18.9 - Pneumonia, unspecified organism (4) Anemia Anemia type: other cause Other causes of anemia: other cause, not classified Qualified Code(s): D64.89 - Other specified anemias (6) Sepsis Acute respiratory failure type: with hypoxia Sepsis acute organ dysfunction status: with acute organ dysfunction Sepsis type: sepsis due to unspecified organism Severe sepsis acute organ dysfunction type: acute respiratory failure Severe sepsis shock status: with septic shock Qualified Code(s): A41.9 - Sepsis, unspecified organism; R65.21 - Severe sepsis with septic shock; J96.01 - Acute respiratory failure with hypoxia
[2023-05-30] MEDS ORDERED: ALBUT/IPRATROP 3MG/0.5MG NEB 3 ML VIAL NEB PRN (11:42)
[2023-05-30] MEDS: FUROSEMIDE INJ 20 MG/2 ML VIAL IV SCH (12:19)
[2023-05-30] MEDS: ICU ELECTROLYTE REPLACEMENT PROTOCOL SCH (12:19)
--- NOTE | 2023-05-30 12:29 | Hospitalist Progress Note ---
Date of Service May 30, 2023 Assessment & Plan (1) Acute and chronic respiratory failure: Plan Patient is 57-year-old male with PMH of COPD, chronic hypoxemic respiratory failure requiring 2-3 L NC with exertion and HS, ongoing tobacco use, chronic right-sided heart failure, CLL, selective deficiency of IgA and M and other medical problems listed below who presents with acute respiratory failure requiring intubation. History of multiple admissions for acute respiratory failure in the setting of multifactorial issues including COPD exacerbation, multifocal pneumonia and decompensated heart failure. In 2020, was admitted here and then transferred for [place] for ongoing treatment of MRSA bacteremia in the setting of necrotizing pneumonia, CLL. Was most recently admitted to [facility] in June 2022. with H. influenzae pneumonia. Patient was admitted to ICU for further care. Patient was placed on mechanical ventilation. Patient failed liberation from ventilator for 2 consecutive times. Patient underwent Percutaneous Dilatational Tracheotomy on May 25, 2022. Acute on chronic hypoxemia and hypercapnic respiratory failure status post Percutaneous Dilatational Tracheotomy on May 25, 2022 COPD exacerbation URI with enterovirus/rhinovirus Multilobar pneumonia Recent URI symptoms and increased O2 needs with EMS intubating in the field [employer] Patient failed liberation from ventilator for 2 times. Patient underwent tracheostomy on May 25, 2022. CT chest on admission: 1. Endotracheal and enteric tubes are in place. 2. Cardiomegaly with evidence of congestive failure. 3. Small right and trace left pleural effusions. 4. Multifocal patchy airspace consolidation is seen throughout both lungs, and there are also multifocal patchy nodular airspace opacities. This is asymmetrically greater on the right, and the appearance favors a multifocal pneumonia. Clinical correlation will be essential. A follow-up chest CT in 3-4 months time is recommended to document resolution and reassess the underlying lung parenchyma/pulmonary nodules. 5. There is marked splenomegaly, as well as upper abdominal, mediastinal, and sternoclavicular lymphadenopathy. There is also likely hilar lymphadenopathy. These findings are nonspecific but could be seen with a lymphoproliferative disorder such as lymphoma. 6. The liver also appears enlarged. 7. Additional findings as above. Patient had oozing from the tracheostomy site after the procedure; underwent Fiberoptic bronchoscopy and local wound care on May 28, 2023 Patient switched over to trach collar with flow rate of 20 L/min and FiO2 of 55%. On antibiotics with levofloxacin; plan to treat for 7 days. On budesonide, nebs Home Lasix currently on hold; CLL Anemia, thrombocytopenia History of CLL; not on treatment. Follows up with oncology as outpatient Hemoglobin of 6.4 on admission Received 3 units of packed RBC. Also 2 unit of pooled platelets. Will need follow-up with oncology as outpatient to discuss further treatment. Elevated liver enzymes Bilirubin and liver enzymes elevated on May 29 Down trended today Discussed with collision repairer regarding the elevated liver enzymes; as per int ensivist; the likely cause for it is the tube feeds which can cause gallbladder to be contracted. Liver USG- no hepatic abnormality. Gallbladder sludge with chronically prominent gallbladder wall. Continue to monitor liver enzymes daily. Acute kidney injury Creatinine 1.5 Likely secondary to sepsis Creatinine improved. Chronic right sided heart failure Home lasix course is 80mg BID, currently on hold Hyperkalemia Improved, continue to monitor daily. DVT Ppx: SCDs Code status: FULL PCP: Reva Dispo: Currently admitted to ICU; on trach collar. PT OT FOUR H AGENT ordered. Time spent evaluating patient, direct bedside care, chart review, placing orders, interpretation of diagnostic studies, discussion with patient as well as other required patient management activities is 50 minutes Please note the above document was generated using voice recognition software. It may contain grammatical, syntax or spelling errors. Any formal questions or concerns about the content, text or information contained within the body of this dictation should be directly addressed to the provider for clarification Admission and Anticipated Discharge Date Admission Date: May 22, 2023 Subjective Patient seen and examined at bedside. Currently switch over to trach collar. No significant overnight events Review of Systems Review of Systems: All systems reviewed & are unremarkable except as noted in Subjective Physical Exam Physical Exam: Constitutional: Awake, comfortable. ENT; tracheostomy collar in place; no bleeding Respiratory: Bilateral mechanical breath sound Cardiovascular: RRR, no murmur, no edema Vessels: no JVD or carotid bruit Chest: normal inspection of chest Abdomen: Soft, Musculoskeletal: no cyanosis or clubbing, extremities Skin: no rashes, warm and dry normal turgor Neurologic: Awake, able to follow simple commands. Results & Data Results & Data Vital Signs (Past 12 Hours) Vital Signs Temp Pulse Pulse Resp BP Pulse Ox O2 Del Method 05/30/23 11:00 124/57 L 05/30/23 11:00 37.9 C H 94 H 20 91 Other 05/30/23 10:26 118/61 05/30/23 10:26 38.6 C H 99 H 22 92 05/30/23 10:00 38.4 C H 100 H 91 05/30/23 09:00 116/55 L 05/30/23 09:00 38.3 C H 102 H 22 90 05/30/23 08:20 100 H 91 05/30/23 08:00 135/62 05/30/23 08:00 38.4 C H 109 H 20 96 05/30/23 08:00 CPAP, Mechanical Vent 05/30/23 07:52 105 H 24 95 Mechanical Vent 05/30/23 07:00 122/65 05/30/23 07:00 38.3 C H 113 H 22 93 05/30/23 04:00 38.3 C H 108 H 22 122/51 L 95 05/30/23 04:00 05/30/23 03:37 93 H 19 97 05/30/23 03:00 38.4 C H 108 H 20 126/55 L 94 05/30/23 02:03 112 H 05/30/23 02:00 38.5 C H 106 H 21 96/51 L 97 05/30/23 01:00 38.5 C H 106 H 21 119/61 97 05/30/23 00:33 112 H 27 H 96 O2 Del Method O2 Flow Rate FiO2 05/30/23 11:00 05/30/23 11:00 20 55 05/30/23 10:26 05/30/23 10:26 05/30/23 10:00 05/30/23 09:00 05/30/23 09:00 05/30/23 08:20 05/30/23 08:00 05/30/23 08:00 05/30/23 08:00 05/30/23 07:52 45 05/30/23 07:00 05/30/23 07:00 05/30/23 04:00 05/30/23 04:00 Mechanical Vent 05/30/23 03:37 45 05/30/23 03:00 05/30/23 02:03 05/30/23 02:00 05/30/23 01:00 05/30/23 00:33 50
--- NOTE | 2023-05-30 17:07 | Oncology Consultation ---
Date of Consultation May 30, 2023 Assessment & Plan (1) Chronic respiratory failure: (2) Sepsis: (3) Chronic lymphocytic leukemia: (4) Pneumonia: Plan Gentleman with CLL for which he is currently on observation admitted with multifocal pneumonia for which he was intubated and is now status post tracheostomy placement. Since admission, labs have shown anemia for which he has required multiple PRBC and platelet transfusions. LDH normal, retic normal ad smear review not suggestive of hemolysis -Anemia and thrombocytopenia likely multifactorial due to mild B12 deficiency, sepsis as well as CLL with marked splenomegaly. Would recommend B12 supplementation for low B12. -Patient would likely benefit from starting treatment for CLL in the setting of cytopenias, bulky lymphadenopathy on CT chest imaging as well as recurrent infections and marked splenomegaly. Consider obtaining CT abdomen and pelvis prior to discharge. 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 aRmirez at [facility]) to discuss initiating treatment -Would recommend checking quantitative IgG level today to see if he would benefit from IVIG treatment. If IgG level is below 500, would recommend IVIG 400 mg/kg IV infusion every 4 weeks. First dose can be administered while inpatient Thank you for this consult. Hematology will sign off at this time. Please feel free to call if you have any further questions. History of Present Illness Reason for Consultation: CLL, anemia Attending Physician: Mina Mejia MD History of Present Illness 57-year-old male with multiple comorbidities including COPD, chronic hypoxemic respiratory failure requiring 2-3 L NC with exertion and HS, ongoing tobacco use, chronic right-sided heart failure, CLL not on treatment and for which he is followed by Dr. Ramirez at [facility] . He presented to the ER at [facility] on 05/22/2023 after EMS was called for shortness of breath. Patient was found to have hypoxic respiratory failure for which he was intubated prior to arrival in the ER. Laboratory studies obtained on arrival revealed worsening in baseline leukocytosis, anemia and thrombocytopenia. CT chest on 05/22/2023 revealed cardiomegaly with evidence of congestive failure, small right and trace left pleural effusions, multifocal patchy airspace consolidation throughout both lungs favoring multifocal pneumonia, marked splenomegaly with upper abdominal, mediastinal and sternoclavicular lymphadenopathy. Of note he has history of multiple admissions for pneumonia most recently in June,. Allergies Allergy/AdvReac Type Severity Reaction Status Date / Time Penicillins Allergy Intermediate Hives Verified 05/24/23 07:31 bee venom protein (honey bee) Allergy Unknown ON [facility] MED Verified 05/24/23 07:31 LIST Home Medications Medication Instructions Recorded Confirmed Type albuterol sulfate 2.5 mg/3 mL 2.5 mg inhalation DIRECTED PRN 06/25/22 06/25/22 History (0.083 %) solution for nebulization Shortness Of Breath epinephrine 0.3 mg/0.3 mL 0.3 mg IM DIRECTED PRN Allergic 06/25/22 06/25/22 History injection, auto-injector Reaction fluticasone propionate 230 2 inh inhalation BID 06/25/22 06/25/22 History mcg-salmeterol 21 mcg/actuation HFA inhaler (Advair HFA) furosemide 80 mg tablet 80 mg PO BID 06/25/22 06/25/22 History tamsulosin 0.4 mg capsule 0.4 mg PO DAILY 06/25/22 06/25/22 History tiotropium bromide 18 mcg capsule 18 mcg inhalation DAILY 06/25/22 06/25/22 History with inhalation device (Spiriva with HandiHaler) prednisone 10 mg tablet 10 mg PO DIRECTED #50 tabs 06/30/22 Rx albuterol sulfate 90 mcg/actuation 2 puff inhalation Q4 PRN Shortness 05/22/23 05/22/23 History aerosol inhaler Of Breath Or Wheezing epinephrine 0.3 mg/0.3 mL 0.3 mg IM UD PRN bee stings 05/22/23 05/22/23 History injection, auto-injector (EpiPen) fluticasone propionate 230 2 puff inhalation AMHS 05/22/23 05/22/23 History mcg-salmeterol 21 mcg/actuation HFA inhaler (Advair HFA) furosemide 80 mg tablet 80 mg PO BID 05/22/23 05/22/23 History omeprazole 20 mg capsule,delayed 20 mg PO DAILYBB 05/22/23 05/22/23 History release tiotropium bromide 18 mcg capsule 1 cap inhalation QAM 05/22/23 05/22/23 History with inhalation device (Spiriva with HandiHaler) Patient History Medical History (Updated 05/25/23 @ 18:22 by Soham Easley DO) 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] HTN (hypertension) Lung nodules Chronic right-sided heart failure Tobacco use Chronic respiratory failure COPD (chronic obstructive pulmonary disease) Chronic lymphocytic leukemia CHF (congestive heart failure) Necrotizing pneumonia CLL (chronic lymphocytic leukemia) Obesity COPD (chronic obstructive pulmonary disease) HLD (hyperlipidemia) HTN (hypertension) Acute respiratory failure with hypoxia Acute leukemia Surgical History (Updated 05/24/23 @ 07:31 by Lizzy Gupta) Hx of appendectomy History of bronchoscopy 12/15/22 - @ [facility] Family History (System 05/24/23 @ 07:31 by Lizzy Gupta) Other Heart disease Lung cancer Social History (System 05/24/23 @ 07:31 by Lizzy Gupta) Smoking Status: Current every day smoker Tobacco Type: Cigarettes Second Hand Exposure: No; Do You Dip or Chew Tobacco: No; Hx Alcohol Use: Yes Alcohol type: beer Alcohol Intake Frequency: 2-4 x/Month Hx Substance Use: No Preferred Language: Hungarian Communication Ability: Impaired [employer] Mechanic Required: No Beliefs That Will Affect Care: None Current Living Situation: Alone Feels Safe at Home: Yes Assistive Devices: Cane Results & Data Vital Signs (Past 12 Hours) Vital Signs Temp Pulse Pulse Resp BP Pulse Ox O2 Del Method 05/30/23 16:36 37.6 C H 05/30/23 16:27 22 92 Trach Collar 05/30/23 16:00 128/43 L 05/30/23 16:00 101 H 22 88 L 05/30/23 16:00 95 H 05/30/23 15:00 123/62 05/30/23 15:00 95 H 20 95 05/30/23 14:00 120/59 L 05/30/23 14:00 38.2 C H 101 H 21 88 L 05/30/23 13:00 38.2 C H 103 H 24 95 05/30/23 13:00 149/71 H 05/30/23 12:00 118/57 L 05/30/23 12:00 38.2 C H 98 H 21 92 05/30/23 11:00 124/57 L 05/30/23 11:00 37.9 C H 94 H 20 91 Other 05/30/23 10:26 118/61 05/30/23 10:26 38.6 C H 99 H 22 92 05/30/23 10:00 38.4 C H 100 H 91 05/30/23 09:00 116/55 L 05/30/23 09:00 38.3 C H 102 H 22 90 05/30/23 08:20 100 H 91 05/30/23 08:00 135/62 05/30/23 08:00 38.4 C H 109 H 20 96 05/30/23 08:00 CPAP, Mechanical Vent 05/30/23 07:52 105 H 24 95 Mechanical Vent 05/30/23 07:00 122/65 05/30/23 07:00 38.3 C H 113 H 22 93 O2 Flow Rate FiO2 05/30/23 16:36 05/30/23 16:27 20 50 05/30/23 16:00 05/30/23 16:00 05/30/23 16:00 05/30/23 15:00 05/30/23 15:00 05/30/23 14:00 05/30/23 14:00 05/30/23 13:00 20 55 05/30/23 13:00 05/30/23 12:00 05/30/23 12:00 05/30/23 11:00 05/30/23 11:00 20 55 05/30/23 10:26 05/30/23 10:26 05/30/23 10:00 05/30/23 09:00 05/30/23 09:00 05/30/23 08:20 05/30/23 08:00 05/30/23 08:00 05/30/23 08:00 05/30/23 07:52 45 05/30/23 07:00 05/30/23 07:00 (2) Sepsis Acute respiratory failure type: with hypoxia Sepsis acute organ dysfunction status: with acute organ dysfunction Sepsis type: sepsis due to unspecified organism Severe sepsis acute organ dysfunction type: acute respiratory failure Severe sepsis shock status: with septic shock Qualified Code(s): A41.9 - Sepsis, unspecified organism; R65.21 - Severe sepsis with septic shock; J96.01 - Acute respiratory failure with hypoxia (4) Pneumonia Laterality: right Lung location: unspecified part of lung Pneumonia type: due to unspecified organism Qualified Code(s): J18.9 - Pneumonia, unspecified organism
[2023-05-30 17:16] LABS: Immunoglobulin A 50.5 mg/dl (70-400); Immunoglobulin G 395.4 mg/dl (635-1741); Immunoglobulin M < 20.0 mg/dl (45-281)
[2023-05-31 05:46] LABS: BUN Creatinine Ratio 43.6 (10-20); Calcium 8.1 mg/dl (8.6-10.3); Creatinine Clr Calc Pharmacy 102.3 ml/min; Est GFR (African American) 103.2 ml/min; Magnesium 2.3 mg/dl (1.7-2.4); Phosphorus 2.6 mg/dl (2.5-4.9); Potassium 3.9 mmol/L (3.5-5.1)
[2023-05-31 06:01] LABS: Basophils # (auto) 0.01 K/uL (0.00-0.20); Eosinophils # (auto) 0.01 K/uL (0.00-0.50); Hematocrit (blood only) 20.3 % (42.0-52.0); Hemoglobin 6.2 g/dl (14.0-18.0); Immature Granulocytes # (auto) 0.16 K/uL (0.01-0.20); Immature Granulocytes % (auto) 0.7 %; Lymphocytes # (auto) 21.45 K/uL (1.20-3.40); Lymphocytes % (auto) 93.1 %; Mean Corpuscular Hemoglobin 31.2 pg (25.0-34.0); Mean Corpuscular Hgb Conc 30.5 g/dL (32.0-36.0); Mean Platelet Volume 12.3 fL (9.4-12.4); Monocytes # (auto) 0.66 K/uL (0.11-0.59); Monocytes % (auto) 2.9 %; Neutrophils # (auto) 0.74 K/uL (1.40-6.50); Neutrophils % (auto) 3.3 %; Platelet Count 66 K/uL (130-400); RDW Coefficient of Variation 17.5 % (11.5-14.5); RDW Standard Deviation 64.4 fL (36.4-46.3); Red Blood Count 1.99 M/uL (4.70-6.10); White Blood Count 23.03 K/ul (4.8-10.8)
[2023-05-31] MEDS: POTASSIUM CHLORIDE 20 MEQ/15 ML UDC NG SCH ×2 (06:42→07:43)
[2023-05-31] MEDS: ICU ELECTROLYTE REPLACEMENT PROTOCOL SCH ×2 (06:45→10:02)
--- NOTE | 2023-05-31 07:14 | XRay Report ---
XR chest 1V portable HISTORY: Respiratory failure. eval lung ware and lines/tubes COMPARISON: Chest 05/30/2023. FINDINGS: The tracheostomy tube appears in good position. Slight improvement in the interstitial/vasc ular thickening suggesting resolving pulmonary edema. No new focal lung consolidations identified. Th e heart is top normal in size. No acute fractures identified. No pleural effusions. No pneumothorax. IMPRESSION: Slight improvement in the interstitial/vascular thickening suggesting resolving pulmonary edema. ACT 112: Negative or not required by law. Electronically signed by: Roby Lane M.D. 05/31/2023 7:13 AM
[2023-05-31] MEDS: DOCUSATE SODIUM/SENNA 50/8.6MG TAB PO SCH (07:42)
[2023-05-31] MEDS: FUROSEMIDE INJ 20 MG/2 ML VIAL IV SCH (07:42)
[2023-05-31] MEDS: NAPHAZOLIN/PHENIRAMIN OPH SOLN 75 DROPS/5 ML BTL OP SCH ×3 (07:42→20:56)
[2023-05-31] MEDS: METHYLCELLULOSE POWDER 454 GM JAR PO SCH (07:42)
[2023-05-31] MEDS: ONDANSETRON INJ 2 MG/ML 2 ML VIAL IV PRN (07:44)
--- NOTE | 2023-05-31 07:44 | Critical Care Progress Note ---
Date of Service May 31, 2023 Assessment & Plan (1) Acute respiratory acidosis: (2) Pneumonia: (3) Chronic lymphocytic leukemia: (4) Anemia: (5) Acute hyperkalemia: (6) Sepsis: Plan Impression: 57 yo M w/ a PMHx of CLL not on any treatment, HTN, HLD obesity, HFrEF, COPD on oxygen, GERD was brought in and intubated for respiratory distress. 24-hour events: BiPAP overnight. Good response to diuresis. Speech therapy evaluation and diet advanced. Recommendations: Neuro -patient complains of some right hand stroke coordinator weakness. Otherwise neurological exam unrevealing. Unclear if this represents critical illness polymyalgia neuropathy. Unlikely to represent central DIRECTOR OF DIGITAL PLATFORMS disease. Will follow at this point in time as he continues to undergo physical therapy and Occupational Therapy. Would consider [employer]AT[employer] imaging and potential EMG studies should symptoms progress. Will check CPK Cardiac -echocardiogram from 05/23/2023 showed an EF of 60 to 70% with grade 1 diastolic dysfunction and mild aortic sclerosis without stenosis. No evidence of pulmonary hypertension. Continue blood pressure and heart rate control. Continue Lasix. 1.4 L negative yesterday Respiratory -respiratory failure with COPD exacerbation secondary to rhinovirus. Tracheostomy placed 05/24/23 secondary to failed extubation attempts. He is tolerating BiPAP nightly. Will discuss with speech therapy as to whether or not Passy-Benson valve might be appropriate during the day. If he continues to progress, may consider capping trial later this week. Will see how he does without any positive airway pressure support tonight. Given the significant bleeding issues associated with trach placement, will hold off on changing his trach out for now. Now off steroids. Continue Perforomist, budesonide, and DuoNebs during the day. Can transition back to Advair and Spiriva once inhalers are appropriate. Oozing from the tracheostomy appears to have resolved and may have been related to low platelets. Continue to observe clinically. GI -intermittent nausea. Will see how he does transitioning to p.o. intake. RENAL/LYTES -no current issues. Continue diuresis and ICU electrolyte replacement protocol. -voiding spontaneously ENDO - glycemic control per protocol HEME -history of CLL not on any therapy. Appreciate oncology input. His hemoglobin has continued to trend down. Platelets remained stable. Given hemoglobin below 7, would be appropriate to transfused 1 unit of leukoreduced packed red blood cells. Avoid additional blood draws is much as possible. Will need outpatient follow-up with [facility] oncology with whom he is established. ID - Fever curve improved. Antibiotics were all discontinued yesterday. Continue to follow clinically VTE: IPC, holding chemical prophylaxis due to thrombocytopenia GI: Pantoprazole Lines: Peripheral Diet: Per speech therapy Continue to observe in ICU but if the patient respiratory status improves, he can likely be transitioned out of the intensive care unit. Discussed with case management. His resources make LTAC limited possibility. Will see if we can get him to only be trach dependent although again I suspect his options with the newly placed tracheostomy are going to be severely limited. Potentially we can work on getting him capped and then decannulated in the future. Admission and Anticipated Discharge Date Admission Date: May 22, 2023 Subjective Patient seen and examined. EMR reviewed. Discussed with bedside critical care nurse and on multidisciplinary rounds. The patient is doing well. He was placed on BiPAP 10/8 last evening. He is tolerated this well. He spent most of the day yesterday on trach collar. He completed speech therapy evaluation which recommended initiation of pured diet. Patient has been hemodynamically stable. Patient's main complaints today are ringing in his ears. He is not sure how long this has been present. He is also noted some right hand stroke coordinator weakness which also he is unable to relate fully occurred. No other focal neurological deficits. Review of Systems Review of Systems: All systems reviewed & are unremarkable except as noted in Subjective Physical Exam Constitutional: WD/WN, vitals as above Neck: Trach site clean dry and intact without evidence of bleeding. Stay sutures are still in place. Respiratory: normal respiratory effort, lungs clear to auscultation Cardiovascular: RRR, no murmur, no edema Gastrointestinal (Abdomen): normal bowel sounds, soft, nontender, no hepatosplenomegaly Musculoskeletal: Extremities: extremities normal to inspection Skin: no rashes, warm and dry Lymphatic: no cervical lymphadenopathy Results & Data Results & Data Vital Signs (Past 12 Hours) Vital Signs Temp Pulse Resp BP Pulse Ox FiO2 05/31/23 06:00 88 18 104/60 97 05/31/23 05:00 92 H 17 110/53 L 92 05/31/23 04:00 62 24 117/59 L 96 05/31/23 04:00 37.5 C 01/09/24 03:52 88 18 94 40 05/31/23 03:00 84 18 112/54 L 94 05/31/23 02:48 90 05/31/23 02:00 86 18 111/52 L 94 05/31/23 01:00 91 H 18 125/55 L 95 05/31/23 00:00 95 H 18 119/57 L 95 05/30/23 23:51 37.4 C 05/30/23 23:00 90 17 116/57 L 93 05/30/23 22:53 92 H 19 92 40 05/30/23 22:00 99 H 30 H 122/63 93 05/30/23 21:00 85 18 125/58 L 93 05/30/23 20:23 94 H 20 93 40 05/30/23 20:00 95 H 18 131/61 95 Critical Care Results & Data Vital Signs (Past 12 Hours) Vital Signs Temp Pulse Resp BP Pulse Ox FiO2 05/31/23 06:00 88 18 104/60 97 05/31/23 05:00 92 H 17 110/53 L 92 05/31/23 04:00 62 24 117/59 L 96 05/31/23 04:00 37.5 C 05/31/23 03:52 88 18 94 40 05/31/23 03:00 84 18 112/54 L 94 05/31/23 02:48 90 05/31/23 02:00 86 18 111/52 L 94 05/31/23 01:00 91 H 18 125/55 L 95 05/31/23 00:00 95 H 18 119/57 L 95 05/30/23 23:51 37.4 C 05/30/23 23:00 90 17 116/57 L 93 05/30/23 22:53 92 H 19 92 40 05/30/23 22:00 99 H 30 H 122/63 93 05/30/23 21:00 85 18 125/58 L 93 05/30/23 20:23 94 H 20 93 40 05/30/23 20:00 95 H 18 131/61 95 Lab & Micro Results (Past 24 Hours) RBC 1.99 M/uL (4.70-6.10) L 05/31/23 WBC 23.03 K/ul (4.8-10.8) H 05/31/23 Hgb 6.2 g/dl (14.0-18.0) L* 05/31/23 Hct 20.3 % (42.0-52.0) L* 05/31/23 MCV 102.0 fL (80.0-100.0) H 05/31/23 MCH 31.2 pg (25.0-34.0) 05/31/23 MCHC 30.5 g/dL (32.0-36.0) L 05/31/23 RDW Standard Deviation 64.4 fL (36.4-46.3) H 05/31/23 RDW Coefficient of Variation 17.5 % (11.5-14.5) H 05/31/23 Plt Count 66 K/uL (130-400) L 05/31/23 MPV 12.3 fL (9.4-12.4) 05/31/23 Neutrophils (%) (Auto) 3.3 % 05/31/23 Lymphocytes (%) (Auto) 93.1 % 05/31/23 Monocytes # (Auto) 0.66 K/uL (0.11-0.59) H 05/31/23 Eosinophils # (Auto) 0.01 K/uL (0.00-0.50) 05/31/23 Immature Granulocyte % (Auto) 0.7 % 05/31/23 Neutrophils # (Auto) 0.74 K/uL (1.40-6.50) L* 05/31/23 Lymphocytes # (Auto) 21.45 K/uL (1.20-3.40) H 05/31/23 Monocytes # (Auto) 0.66 K/uL (0.11-0.59) H 05/31/23 Eosinophils # (Auto) 0.01 K/uL (0.00-0.50) 05/31/23 Basophils # (Auto) 0.01 K/uL (0.00-0.20) 05/31/23 Immature Granulocyte # (Auto) 0.16 K/uL (0.01-0.20) 4 Na 143 mmol/L (136-145) 05/31/23 K 3.9 mmol/L (3.5-5.1) 05/31/23 Cl 99 mmol/L (98-107) 05/31/23 CO2 40 mmol/L (21-32) H 05/31/23 Anion Gap 4 (3-11) 05/31/23 BUN 41 mg/dl (6-23) H 05/31/23 Creatinine 0.94 mg/dl (0.6-1.4) 05/31/23 Estimated GFR ( Amer) 103.2 ml/min 05/31/23 Estimated GFR (Non-Af Amer) 89.0 ml/min 05/31/23 BUN/Creatinine Ratio 43.6 (10-20) H 05/31/23 Glu 96 mg/dl (70-99(Fasting)) 05/31/23 Ca 8.1 mg/dl (8.6-10.3) L 05/31/23 Phosphorus Level 2.6 mg/dl (2.5-4.9) 05/31/23 Mg 2.3 mg/dl (1.7-2.4) 05/31/23 04:37 Calcium Level 8.1 mg/dl (8.6-10.3) L 05/31/23 04:37 Microbiology 05/29/23 15:24 Aerobic Blood Culture - Preliminary Blood No growth in Aerobic bottle after 24 hours. Anaerobic Blood Culture - Preliminary No growth in Anaerobic bottle after 24 hours. 05/29/23 15:47 Aerobic Blood Culture - Preliminary Blood No growth in Aerobic bottle after 24 hours. Anaerobic Blood Culture - Preliminary No growth in Anaerobic bottle after 24 hours. 05/29/23 Unknown Gram Stain - Final Sputum,Vent Suction Sputum Culture - Preliminary Moderate normal jennifer present, final report to follow. Diagnostic Findings (Past 24 Hours) Chest X-Ray 05/30/23 05:00 XR chest 1V portable HISTORY: Respiratory failure. eval lung ware and lines/tubes COMPARISON: Chest 05/29/2023. FINDINGS: No pneumothorax. Trace right pleural effusion is again noted. The heart remains borderline enlarged. There is diffuse interstitial/vascular thickening which has slightly progressed. This suggests progressive pulmonary edema. Hazy airspace opacities within the left lung have also progressed. No acute fractures identified. The nasogastric tube is been removed. IMPRESSION: 1. Interval progression of the interstitial/vascular thickening and left lung airspace opacities. This suggests progressive pulmonary edema. 2. Tracheostomy tube is unchanged in position. ACT 112: Negative or not required by law. Electronically signed by: Roby Lane M.D. 05/30/2023 8:20 AM Chest X-Ray 05/31/23 05:00 XR chest 1V portable HISTORY: Respiratory failure. eval lung ware and lines/tubes COMPARISON: Chest 05/30/2023. FINDINGS: The tracheostomy tube appears in good position. Slight improvement in the interstitial/vascular thickening suggesting resolving pulmonary edema. No new focal lung consolidations identified. The heart is top normal in size. No acute fractures identified. No pleural effusions. No pneumothorax. IMPRESSION: Slight improvement in the interstitial/vascular thickening suggesting resolving pulmonary edema. ACT 112: Negative or not required by law. Electronically signed by: Roby Lane M.D. 05/31/2023 7:13 AM I & O Totals 24 Hours 05/30/23 05/31/23 06/01/23 06:59 06:59 06:59 Intake Total 835.498 / 835.498 960 / 960 Output Total 2256 / 2256 1201 / 1201 Balance -1420.502 / -1420.502 -241 / -241 Cumulative 05/22/23 14:45 thru 05/31/23 06:00 Intake Total 59791.462 Output Total 06920 Balance 4196.462 RT Ventilator Mngmt (Last Documented) Ventilator Ordered Settings Ventilator Support Mode CPAP 05/31/23 03:52 Respiratory Rate 18 05/31/23 06:00 Ventilator Tidal Volume 440 05/29/23 07:30 Setting Minute Ventilation 7.5 05/31/23 03:52 Ventilator Positive Pressure 10 05/31/23 03:52 Support Setting Positive End Expiratory 8 05/31/23 03:52 Pressure Fraction of Inspired Oxygen 40 05/31/23 03:52 Machine Comment notified by ROOM SERVICE WAITER/WAITRESS that PS 8 added to 05/31/23 02:00 maintain ET CO2 around 50 mm Hg Ventilator - PT Measurements Respiratory Rate 18 Exhaled Tidal Volume 402 Minute Ventilation 7.5 Peak Inspiratory Airway 20 Pressure Plateau Pressure 22 Respiratory Cycle Inspiratory: 1:3.7 Expiratory Ratio Inspiratory Phase Time 0.8 End-Tidal CO2 51 Static Lung Compliance 31.43 Dynamic Lung Compliance 33.50 Normal Static Lung Compliance 48.00 Patient Measurements Comment pt placed on 20L/55% FiO2 trach collar per MD verbal order. cuff deflated, pt tolerating well. Coding Level of Care Code 79957 SUB INP/OBS CARE 3/50MIN Diagnoses Acute respiratory acidosis J96.02 Pneumonia J18.9 Laterality: right Lung location: unspecified part of lung Pneumonia type: due to unspecified organism Chronic lymphocytic leukemia C91.10 Anemia due to other cause, not classified D64.89 Anemia type: other cause Other causes of anemia: other cause, not classified Acute hyperkalemia E87.5 Sepsis A41.9; R65.21; J96.01 Acute respiratory failure type: with hypoxia Sepsis acute organ dysfunction status: with acute organ dysfunction Sepsis type: sepsis due to unspecified organism Severe sepsis acute organ dysfunction type: acute respiratory failure Severe sepsis shock status: with septic shock (2) Pneumonia Laterality: right Lung location: unspecified part of lung Pneumonia type: due to unspecified organism Qualified Code(s): J18.9 - Pneumonia, unspecified organism (4) Anemia Anemia type: other cause Other causes of anemia: other cause, not classified Qualified Code(s): D64.89 - Other specified anemias (6) Sepsis Acute respiratory failure type: with hypoxia Sepsis acute organ dysfunction status: with acute organ dysfunction Sepsis type: sepsis due to unspecified organism Severe sepsis acute organ dysfunction type: acute respiratory failure Severe sepsis shock status: with septic shock Qualified Code(s): A41.9 - Sepsis, unspecified organism; R65.21 - Severe sepsis with septic shock; J96.01 - Acute respiratory failure with hypoxia
[2023-05-31] MEDS: FORMOTEROL 20 MCG/2 ML VIAL INH SCH ×2 (08:15→20:35)
[2023-05-31] MEDS ORDERED: SODIUM CHLORIDE 0.9% 250 ML IV PRN ×2 (08:16→10:36)
[2023-05-31] MEDS: BUDESONIDE 0.25 MG/2 ML VIAL (PULMICORT) NEB SCH ×2 (08:24→20:33)
[2023-05-31] MEDS ORDERED: predniSONE 10 MG TABLET PO SCH (09:00)
--- NOTE | 2023-05-31 12:14 | Hospitalist Progress Note ---
Date of Service May 31, 2023 Assessment & Plan (1) Acute and chronic respiratory failure: Plan Patient is 57-year-old male with PMH of COPD, chronic hypoxemic respiratory failure requiring 2-3 L NC with exertion and HS, ongoing tobacco use, chronic right-sided heart failure, CLL, selective deficiency of IgA and M and other medical problems listed below who presents with acute respiratory failure requiring intubation. History of multiple admissions for acute respiratory failure in the setting of multifactorial issues including COPD exacerbation, multifocal pneumonia and decompensated heart failure. In 2020, was admitted here and then transferred for [place] for ongoing treatment of MRSA bacteremia in the setting of necrotizing pneumonia, CLL. Was most recently admitted to [facility] in June 2022. with H. influenzae pneumonia. Patient was admitted to ICU for further care. Patient was placed on mechanical ventilation. Patient failed liberation from ventilator for 2 consecutive times. Patient underwent Percutaneous Dilatational Tracheotomy on May 25, 2022. Patient had oozing from the tracheostomy site and underwent Fiberoptic bronchoscopy and local wound care on May 28, 2023. 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 Also had marked splenomegaly, lymphadenopathy and hepatomegaly. Patient failed liberation from ventilator for 2 times and needed to be reintubated. Patient underwent tracheostomy on May 25, 2022. Patient had oozing from the tracheostomy site after the procedure; underwent Fiberoptic bronchoscopy and local wound care on May 28, 2023 Status post 7 days of antibiotics with levofloxacin and Zosyn. Blood culture no growth till date. Off antibiotics. Management of tracheostomy as per ICU. Currently on BiPAP nightly; trach collar during the day. Might consider capping trial later this week. On budesonide and formoterol neb twice daily along with DuoNeb every 4 as needed. Also on Lasix 20 mg once a day CLL Anemia, thrombocytopenia History of CLL; not on treatment. Follows up with oncology as outpatient Hemoglobin of 6.4 on admission Received 3 units of packed RBC. Also 2 unit of pooled platelets. Patient to be given 1 more unit of packed RBC today; Seen by inpatient hematology; recommend vitamin B12 supplement for low vitamin B12. Also, recommend obtaining CT abdomen and pelvis prior to discharge and close follow-up with hematology as outpatient. Quantitative IgG to be sent; if less than 500; plan for infusion of IVIG 400 mg/kg IV infusion every 4 weeks. Elevated liver enzymes Bilirubin and liver enzymes elevated on May 29 Down trended on subsequent lab work on May 30 Discussed with personnel analyst regarding the elevated liver enzymes; as per personnel analyst; the likely cause for it is the tube feeds which can cause gallb ladder to be contracted. Liver USG- no hepatic abnormality. Gallbladder sludge with chronically prominent gallbladder wall. Continue to monitor Acute kidney injury Creatinine 1.5 Likely secondary to sepsis Creatinine improved. Chronic right sided heart failure Home lasix course is 80mg BID, currently on hold Receiving 20 mg IV Lasix daily. Hyperkalemia Improved, continue to monitor daily. DVT Ppx: SCDs Code status: FULL PCP: Reva Dispo: Currently admitted to ICU; on trach collar. PT OT RECONSTRUCTIVE SURGEON ordered on board. Time spent evaluating patient, direct bedside care, chart review, placing orders, interpretation of diagnostic studies, discussion with patient as well as other required patient management activities is 50 minutes Please note the above document was generated using voice recognition software. It may contain grammatical, syntax or spelling errors. Any formal questions or concerns about the content, text or information contained within the body of this dictation should be directly addressed to the provider for clarification Admission and Anticipated Discharge Date Admission Date: May 22, 2023 Subjective Patient seen and examined at bedside. He continues to be on trach collar; was on CPAP overnight. No significant overnight events. Review of Systems Review of Systems: All systems reviewed & are unremarkable except as noted in Subjective Physical Exam Physical Exam: Constitutional: Awake, comfortable. ENT; tracheostomy collar in place; no bleeding Respiratory: Bilateral mechanical breath sound Cardiovascular: RRR, no murmur, no edema Vessels: no JVD or carotid bruit Chest: normal inspection of chest Abdomen: Soft, Musculoskeletal: no cyanosis or clubbing, extremities Skin: no rashes, warm and dry normal turgor Neurologic: Awake, able to follow simple commands. Results & Data Results & Data Vital Signs (Past 12 Hours) Vital Signs Temp Pulse Pulse Resp BP Pulse Ox O2 Del Method 05/31/23 10:00 127/64 05/31/23 10:00 101 H 20 93 05/31/23 09:00 99 H 20 92 05/31/23 09:00 116/64 05/31/23 08:15 93 H 22 93 Trach Collar 05/31/23 08:15 93 H 93 05/31/23 08:00 92 H 16 94 05/31/23 08:00 105/57 L 05/31/23 08:00 37.5 C 05/31/23 08:00 Trach Collar, Other 05/31/23 07:00 118/61 05/31/23 07:00 94 H 16 94 05/31/23 06:00 88 18 104/60 97 05/31/23 05:00 92 H 17 110/53 L 92 05/31/23 04:00 62 24 117/59 L 96 05/31/23 04:00 37.5 C 05/31/23 03:52 88 18 94 05/31/23 03:00 84 18 112/54 L 94 05/31/23 02:48 90 05/31/23 02:00 86 18 111/52 L 94 05/31/23 01:00 91 H 18 125/55 L 95 O2 Flow Rate FiO2 05/31/23 10:00 05/31/23 10:00 20 50 05/31/23 09:00 05/31/23 09:00 05/31/23 08:15 20 50 05/31/23 08:15 05/31/23 08:00 05/31/23 08:00 05/31/23 08:00 05/31/23 08:00 20 50 05/31/23 07:00 05/31/23 07:00 05/31/23 06:00 05/31/23 05:00 05/31/23 04:00 05/31/23 04:00 05/31/23 03:52 40 05/31/23 03:00 05/31/23 02:48 05/31/23 02:00 05/31/23 01:00
[2023-05-31] MEDS: CYANOCOBALAMIN (B-12) 500 MCG TABLET PO SCH (14:34)
[2023-05-31] MEDS: guaiFENesin SUGAR FREE 200 MG/10 ML UDC PO PRN (14:34)
[2023-05-31] MEDS: SODIUM CHLOR 7% 4 ML NEB NEB SCH (20:35)
[2023-05-31] MEDS: ACETAMINOPHEN SUSP 325 MG/10.15 ML UDC OG PRN (22:58)
[2023-06-01 05:16] LABS: BUN Creatinine Ratio 40.2 (10-20); Calcium 8.1 mg/dl (8.6-10.3); Creatinine Clr Calc Pharmacy 117.6 ml/min; Est GFR (Non-African American) 97.5 ml/min; Immunoglobulin G 396.8 mg/dl (635-1741); Magnesium 2.2 mg/dl (1.7-2.4)
[2023-06-01] MEDS: ICU ELECTROLYTE REPLACEMENT PROTOCOL SCH ×2 (05:32→11:27)
[2023-06-01] MEDS: CYANOCOBALAMIN (B-12) 500 MCG TABLET PO SCH (07:14)
[2023-06-01] MEDS: METHYLCELLULOSE POWDER 454 GM JAR PO SCH (07:14)
[2023-06-01] MEDS: FUROSEMIDE INJ 20 MG/2 ML VIAL IV SCH (07:14)
[2023-06-01] MEDS: NAPHAZOLIN/PHENIRAMIN OPH SOLN 75 DROPS/5 ML BTL OP SCH ×4 (07:15→22:08)
[2023-06-01] MEDS: DOCUSATE SODIUM/SENNA 50/8.6MG TAB PO SCH (07:15)
[2023-06-01] MEDS: guaiFENesin SUGAR FREE 200 MG/10 ML UDC PO PRN (07:15)
[2023-06-01] MEDS: FORMOTEROL 20 MCG/2 ML VIAL INH SCH ×2 (07:41→20:37)
[2023-06-01] MEDS: SODIUM CHLOR 7% 4 ML NEB NEB SCH ×2 (07:41→20:37)
[2023-06-01] MEDS: BUDESONIDE 0.25 MG/2 ML VIAL (PULMICORT) NEB SCH ×2 (07:41→20:38)
--- NOTE | 2023-06-01 08:15 | Critical Care Progress Note ---
Date of Service June 01, 2023 Assessment & Plan (1) Acute respiratory acidosis: (2) Pneumonia: (3) Chronic lymphocytic leukemia: (4) Anemia: (5) Acute hyperkalemia: (6) Sepsis: Plan Impression: 57 yo M w/ a PMHx of CLL not on any treatment, HTN, HLD obesity, HFrEF, COPD on oxygen, GERD was brought in and intubated for respiratory distress. He was reintubated on 3 occasions and eventually underwent tracheostomy 05/24/2023. 24-hour events: Patient continues to show slow and steady improvement. He has remained off of the Recommendations: Neuro - weakness in the right arm is improving as well as the pain in his right shoulder. CPK was normal making critical illness myopathy unlikely. Cannot rule out critical illness polyneuropathy. Continue with physical therapy and Occupational Therapy. Given his clinical improvement would continue to follow for right now. No indication for imaging. Cardiac -echocardiogram from 05/23/2023 showed an EF of 60 to 70% with grade 1 diastolic dysfunction and mild aortic sclerosis without stenosis. No evidence of pulmonary hypertension. Continue blood pressure and heart rate control. Continue Lasix. Still on 4 L positive since admission Respiratory -respiratory failure with COPD exacerbation secondary to rhinovirus. Tracheostomy placed 05/24/23 secondary to failed extubation attempts. He has been positive airway pressure for 24 hours. Will continue to wean oxygen and pursue capping trials as tolerated. Discussed with speech therapy. As his strength improves and his oxygen decreases, will reevaluate for Pass[place] valve. Given the significant bleeding issues associated with trach placement, will hold off on changing his trach out for now. Now off steroids. Continue Perforomist, budesonide, and DuoNebs during the day. Can transition back to Advair and Spiriva once inhalers are appropriate. Oozing from the tracheostomy appears to have resolved and may have been related to low platelets. Continue to observe clinically. GI -tolerating p.o. well currently. RENAL/LYTES -no current issues. Continue diuresis and ICU electrolyte replacement protocol. -voiding spontaneously ENDO - glycemic control per protocol HEME -history of CLL not on any therapy. Appreciate oncology input. Transfused 1 unit of packed cells yesterday. Will repeat CBC today to ensure appropriate response will need outpatient follow-up with [facility] oncology with whom he is established. ID - Fever curve improved. Antibiotics were all discontinued. Continue to follow clinically VTE: IPC, holding chemical prophylaxis due to thrombocytopenia GI: Pantoprazole Lines: Peripheral Disposition: Referrals have been made to [facility] half-way facility near [place] and they believe they may have a bed later this week for him. Patient has been on positive airway pressure ventilation for over 24 hours now and is appropriate to downgrade out of the intensive care unit. Pulmonary will continue to follow for trach issues. Critical care will sign off. Ongoing management per hospitalist Admission and Anticipated Discharge Date Admission Date: May 22, 2023 Subjective Patient seen and examined. EMR reviewed. The patient is awake alert and sitting up in the chair. He has been able to take p.o. His right arm weakness is improving. His right shoulder pain is also improved. He continues to have some tinnitus more prominently in his left ear than the right. Review of Systems Review of Systems: All systems reviewed & are unremarkable except as noted in Subjective Physical Exam Constitutional: WD/WN, vitals as above ENMT: Trach site clean dry and intact Neck: trachea midline, no thyromegaly Respiratory: normal respiratory effort, lungs clear to auscultation Cardiovascular: RRR, no murmur, no edema Gastrointestinal (Abdomen): normal bowel sounds, soft, nontender, no hepatosplenomegaly Musculoskeletal: Extremities: extremities normal to inspection Skin: no rashes, warm and dry Lymphatic: no cervical lymphadenopathy Results & Data Results & Data Vital Signs (Past 12 Hours) Vital Signs Temp Pulse Pulse Resp BP Pulse Ox O2 Del Method 06/01/23 07:36 Trach Collar, Other 06/01/23 07:10 93 H 19 88 L 06/01/23 07:10 132/106 H 06/01/23 05:00 91 H 28 H 136/66 92 06/01/23 04:55 37.3 C 06/01/23 04:00 85 20 118/59 L 92 06/01/23 03:13 84 22 91 Trach Collar 06/01/23 03:00 86 17 116/54 L 90 06/01/23 02:01 91 H 25 H 133/65 87 L 06/01/23 02:00 101 H 22 90 06/01/23 01:12 85 06/01/23 01:00 104/53 L 06/01/23 01:00 87 17 91 06/01/23 00:00 37.0 C 06/01/23 00:00 129/46 L 06/01/23 00:00 85 18 88 L 05/31/23 23:33 93 H 22 96 Trach Collar 05/31/23 23:00 133/52 L 05/31/23 23:00 91 H 33 H 90 05/31/23 22:00 116/52 L 05/31/23 22:00 83 22 92 05/31/23 21:00 120/61 05/31/23 21:00 84 25 H 94 05/31/23 20:29 84 20 95 Trach Collar O2 Flow Rate FiO2 06/01/23 07:36 20 40 06/01/23 07:10 06/01/23 07:10 06/01/23 05:00 06/01/23 04:55 06/01/23 04:00 06/01/23 03:13 20 40 06/01/23 03:00 06/01/23 02:01 06/01/23 02:00 06/01/23 01:12 06/01/23 01:00 06/01/23 01:00 06/01/23 00:00 06/01/23 00:00 06/01/23 00:00 05/31/23 23:33 20 40 05/31/23 23:00 05/31/23 23:00 05/31/23 22:00 05/31/23 22:00 05/31/23 21:00 05/31/23 21:00 05/31/23 20:29 20 45 Critical Care Results & Data Vital Signs (Past 12 Hours) Vital Signs Temp Pulse Pulse Resp BP Pulse Ox O2 Del Method 06/01/23 07:36 Trach Collar, Other 06/01/23 07:10 93 H 19 88 L 06/01/23 07:10 132/106 H 06/01/23 05:00 91 H 28 H 136/66 92 06/01/23 04:55 37.3 C 06/01/23 04:00 85 20 118/59 L 92 06/01/23 03:13 84 22 91 Trach Collar 06/01/23 03:00 86 17 116/54 L 90 06/01/23 02:01 91 H 25 H 133/65 87 L 06/01/23 02:00 101 H 22 90 06/01/23 01:12 85 06/01/23 01:00 104/53 L 06/01/23 01:00 87 17 91 06/01/23 00:00 37.0 C 06/01/23 00:00 129/46 L 06/01/23 00:00 85 18 88 L 05/31/23 23:33 93 H 22 96 Trach Collar 05/31/23 23:00 133/52 L 05/31/23 23:00 91 H 33 H 90 05/31/23 22:00 116/52 L 05/31/23 22:00 83 22 92 05/31/23 21:00 120/61 05/31/23 21:00 84 25 H 94 05/31/23 20:29 84 20 95 Trach Collar O2 Flow Rate FiO2 06/01/23 07:36 20 40 06/01/23 07:10 06/01/23 07:10 06/01/23 05:00 06/01/23 04:55 06/01/23 04:00 06/01/23 03:13 20 40 06/01/23 03:00 06/01/23 02:01 06/01/23 02:00 06/01/23 01:12 06/01/23 01:00 06/01/23 01:00 06/01/23 00:00 06/01/23 00:00 06/01/23 00:00 05/31/23 23:33 20 40 05/31/23 23:00 05/31/23 23:00 05/31/23 22:00 05/31/23 22:00 05/31/23 21:00 05/31/23 21:00 05/31/23 20:29 20 45 Lab & Micro Results (Past 24 Hours) No Data to Display Na 138 mmol/L (136-145) 06/01/23 K 4.0 mmol/L (3.5-5.1) 06/01/23 Cl 98 mmol/L (98-107) 06/01/23 CO2 38 mmol/L (21-32) H 06/01/23 Anion Gap 2 (3-11) L 06/01/23 BUN 33 mg/dl (6-23) H 06/01/23 Creatinine 0.82 mg/dl (0.6-1.4) 06/01/23 Estimated GFR ( Amer) 113.0 ml/min 06/01/23 Estimated GFR (Non-Af Amer) 97.5 ml/min 06/01/23 BUN/Creatinine Ratio 40.2 (10-20) H 06/01/23 Glu 92 mg/dl (70-99(Fasting)) 06/01/23 Ca 8.1 mg/dl (8.6-10.3) L 06/01/23 Phosphorus Level 3.0 mg/dl (2.5-4.9) 06/01/23 Mg 2.2 mg/dl (1.7-2.4) 06/01/23 04:28 Calcium Level 8.1 mg/dl (8.6-10.3) L 06/01/23 04:28 Microbiology 05/29/23 15:24 Aerobic Blood Culture - Preliminary Blood No growth in Aerobic bottle after 48 hours. Anaerobic Blood Culture - Preliminary No growth in Anaerobic bottle after 48 hours. 05/29/23 15:47 Aerobic Blood Culture - Preliminary Blood No growth in Aerobic bottle after 48 hours. Anaerobic Blood Culture - Preliminary No growth in Anaerobic bottle after 48 hours. 05/29/23 Unknown Gram Stain - Final Sputum,Vent Suction Sputum Culture - Final Moderate normal jennifer. I & O Totals 24 Hours 05/31/23 06/01/23 06/02/23 06:59 06:59 06:59 Intake Total 960 / 960 1607 / 1607 240 / 240 Output Total 1201 / 1201 1576 / 1576 201 / 201 Balance -241 / -241 39 / 39 Cumulative 05/22/23 14:45 thru 06/01/23 07:36 Intake Total 83819.462 Output Total 49471 Balance 4266.462 RT Ventilator Mngmt (Last Documented) Ventilator Ordered Settings Ventilator Support Mode CPAP 05/31/23 03:52 Respiratory Rate 19 06/01/23 07:10 Ventilator Tidal Volume 440 05/29/23 07:30 Setting Minute Ventilation 7.5 05/31/23 03:52 Ventilator Positive Pressure 10 05/31/23 03:52 Support Setting Positive End Expiratory 8 05/31/23 03:52 Pressure Fraction of Inspired Oxygen 40 06/01/23 07:36 Machine Comment notified by BODY TEAM MEMBER that PS 8 added to 05/31/23 02:00 maintain ET CO2 around 50 mm Hg Ventilator - PT Measurements Respiratory Rate 19 Exhaled Tidal Volume 402 Minute Ventilation 7.5 Peak Inspiratory Airway 20 Pressure Plateau Pressure 22 Respiratory Cycle Inspiratory: 1:3.7 Expiratory Ratio Inspiratory Phase Time 0.8 End-Tidal CO2 43 Static Lung Compliance 31.43 Dynamic Lung Compliance 33.50 Normal Static Lung Compliance 48.00 Patient Measurements Comment Patient placed on heated high flow system via trach collar at this time. Patient is on 20LPM/ 50%. Cuff deflated. Patient tolerating well. Coding Level of Care Code 16377 SUB INP/OBS CARE 3/50MIN Diagnoses Acute respiratory acidosis J96.02 Pneumonia J18.9 Laterality: right Lung location: unspecified part of lung Pneumonia type: due to unspecified organism Chronic lymphocytic leukemia C91.10 Anemia due to other cause, not classified D64.89 Anemia type: other cause Other causes of anemia: other cause, not classified Acute hyperkalemia E87.5 Sepsis A41.9; R65.21; J96.01 Acute respiratory failure type: with hypoxia Sepsis acute organ dysfunction status: with acute organ dysfunction Sepsis type: sepsis due to unspecified organism Severe sepsis acute organ dysfunction type: acute respiratory failure Severe sepsis shock status: with septic shock (2) Pneumonia Laterality: right Lung location: unspecified part of lung Pneumonia type: due to unspecified organism Qualified Code(s): J18.9 - Pneumonia, unspecified organism (4) Anemia Anemia type: other cause Other causes of anemia: other cause, not classified Qualified Code(s): D64.89 - Other specified anemias (6) Sepsis Acute respiratory failure type: with hypoxia Sepsis acute organ dysfunction status: with acute organ dysfunction Sepsis type: sepsis due to unspecified organism Severe sepsis acute organ dysfunction type: acute respiratory failure Severe sepsis shock status: with septic shock Qualified Code(s): A41.9 - Sepsis, unspecified organism; R65.21 - Severe sepsis with septic shock; J96.01 - Acute respiratory failure with hypoxia
[2023-06-01] MEDS ORDERED: FUROSEMIDE INJ 20 MG/2 ML VIAL IV SCH (09:00)
[2023-06-01 09:31] LABS: Hematocrit (blood only) 23.6 % (42.0-52.0); Hemoglobin 7.2 g/dl (14.0-18.0); Mean Corpuscular Hgb Conc 30.5 g/dL (32.0-36.0); Mean Corpuscular Volume 101.7 fL (80.0-100.0); Mean Platelet Volume 12.5 fL (9.4-12.4); Nucleated RBC # (auto) 0.02 K/uL (0.00-0.12); Nucleated RBC % (auto) 0.1 %; Platelet Count 69 K/uL (130-400); RDW Coefficient of Variation 17.3 % (11.5-14.5); RDW Standard Deviation 64.2 fL (36.4-46.3); Red Blood Count 2.32 M/uL (4.70-6.10); White Blood Count 29.24 K/ul (4.8-10.8)
[2023-06-01 09:51] LABS: Basophils # (auto) 0.07 K/uL (0.00-0.20); Basophils % (auto) 0.2 %; Eosinophils # (auto) 0.02 K/uL (0.00-0.50); Eosinophils % (auto) 0.1 %; Immature Granulocytes # (auto) 0.08 K/uL (0.01-0.20); Immature Granulocytes % (auto) 0.3 %; Lymphocytes # (auto) 27.11 K/uL (1.20-3.40); Lymphocytes % (auto) 92.7 %; Monocytes # (auto) 0.92 K/uL (0.11-0.59); Monocytes % (auto) 3.1 %; Neutrophils # (auto) 1.04 K/uL (1.40-6.50); Neutrophils % (auto) 3.6 %; Smudge Cells Present; Stomatocytes 1+
[2023-06-01] MEDS ORDERED: FUROSEMIDE INJ 20 MG/2 ML VIAL IV STA (10:27)
--- NOTE | 2023-06-01 14:06 | Hospitalist Progress Note ---
Date of Service June 01, 2023 Assessment & Plan (1) Acute and chronic respiratory failure: Plan Patient is 57-year-old male with PMH of COPD, chronic hypoxemic respiratory failure requiring 2-3 L NC with exertion and HS, ongoing tobacco use, chronic right-sided heart failure, CLL, selective deficiency of IgA and M and other medical problems listed below who presents with acute respiratory failure requiring intubation. History of multiple admissions for acute respiratory failure in the setting of multifactorial issues including COPD exacerbation, multifocal pneumonia and decompensated heart failure. In 2020, was admitted here and then transferred for [place] for ongoing treatment of MRSA bacteremia in the setting of necrotizing pneumonia, CLL. Was most recently admitted to [facility] in June 2022. with H. influenzae pneumonia. Patient was admitted to ICU for further care. Patient was placed on mechanical ventilation. Patient failed liberation from ventilator for 2 consecutive times. Patient underwent Percutaneous Dilatational Tracheotomy on May 25, 2022. Patient had oozing from the tracheostomy site and underwent Fiberoptic bronchoscopy and local wound care on May 28, 2023. Acute on chronic hypoxemia and hypercapnic respiratory failure status post Percutaneous Dilatational Tracheotomy on May 25, 2022 COPD exacerbation URI with enterovirus/rhinovirus Multilobar pneumonia Recent URI symptoms and increased O2 needs with EMS intubating in the field [employer] CT chest on admission showed cardiomegaly with CHF, multifocal airspace consolidation concerning for multifocal pneumonia. Also had marked splenomegaly, lymphadenopathy and hepatomegaly. Patient failed liberation from ventilator for 2 times and needed to be reintubated. Patient underwent tracheostomy on May 25, 2022. Patient had oozing from the tracheostomy site after the procedure; underwent Fiberoptic bronchoscopy and local wound care on May 28, 2023 Status post 7 days of antibiotics with levofloxacin and Zosyn. Blood culture no growth till date. Off antibiotics. Management of tracheostomy as per Pulm. Currently on BiPAP nightly; trach collar during the day. Might consider capping trial later this week. c/w Budesonide and formoterol nebs, c/w hypertonic saline nebs. c/w lasix iv daily. Monitor Is and Os. Follow blood and sputum culture. CLL Anemia, thrombocytopenia History of CLL; not on treatment. Follows up with oncology as outpatient Hemoglobin of 6.4 on admission; also had complication of tracheostomy site bleeding (see above) Received 6 units of packed RBC so far. Also 2 unit of pooled platelets. Seen by inpatient hematology; recommend vitamin B12 supplement for low vitamin B12. Also, recommend obtaining CT abdomen and pelvis prior to discharge and close follow-up with hematology as outpatient. Quantitative IgG to be sent; if less than 500; plan for infusion of IVIG 400 mg/kg IV infusion every 4 weeks. IVIG 396.8; will order IVIg infusion per onc recs for marquez AM every 4 weeks. Elevated liver enzymes Bilirubin and liver enzymes elevated on May 29 Down trended on subsequent lab work on May 30 Discussed with pedigree researcher regarding the elevated liver enzymes; as per pedigree researcher; the likely cause for it is the tube feeds which can cause gallbla dder to be contracted. Liver USG- no hepatic abnormality. Gallbladder sludge with chronically prominent gallbladder wall. Improving, Continue to monitor Acute kidney injury: Likely secondary to sepsis. Resolved. Chronic right sided heart failure : Home lasix course is 80mg BID, currently on hold. Receiving 40 mg IV Lasix daily. Hyperkalemia : Improved, continue to monitor daily. DVT Ppx: SCDs Code status: FULL PCP: Reva Dispo: Today downgraded from ICU; on trach collar. PT OT POLE INSPECTOR ordered on board. Admission and Anticipated Discharge Date Admission Date: May 22, 2023 Subjective Patient was seen and examined at bedside. Patient was lying in bed, on 20 L oxygen via trach collar, NAD. Patient denies any new acute events overnight, feels improving, reports b ilateral upper belly pain secondary to coughing. Physical Exam Physical Exam: Constitutional: Awake, comfortable. On 20L O2 via Trach collar ENT; tracheostomy collar in place; no bleeding Respiratory: Bilateral mechanical breath sound Cardiovascular: RRR, no murmur, no edema Vessels: no JVD or carotid bruit Chest: normal inspection of chest Abdomen: Soft, Musculoskeletal: no cyanosis or clubbing, extremities Skin: no rashes, warm and dry normal turgor Neurologic: Awake, able to follow simple commands. Results & Data Results & Data Vital Signs (Past 12 Hours) Vital Signs Temp Pulse Pulse Resp BP Pulse Ox O2 Del Method 06/01/23 13:01 88 20 94 Trach Collar 06/01/23 11:53 37.1 C 06/01/23 11:00 113/52 L 06/01/23 11:00 84 21 93 06/01/23 10:00 87 21 88 L 06/01/23 10:00 110/51 L 06/01/23 09:00 90 24 90 06/01/23 09:00 132/65 06/01/23 08:01 104/54 L 06/01/23 08:01 94 H 23 92 06/01/23 08:00 37.0 C 06/01/23 07:45 85 22 91 Trach Collar 06/01/23 07:36 Trach Collar, Other 06/01/23 07:10 93 H 19 88 L 06/01/23 07:10 132/106 H 06/01/23 05:00 91 H 28 H 136/66 92 06/01/23 04:55 37.3 C 06/01/23 04:00 85 20 118/59 L 92 06/01/23 03:13 84 22 91 Trach Collar 06/01/23 03:00 86 17 116/54 L 90 06/01/23 02:01 91 H 25 H 133/65 87 L 06/01/23 02:00 101 H 22 90 O2 Flow Rate FiO2 06/01/23 13:01 12 40 06/01/23 11:53 06/01/23 11:00 06/01/23 11:00 06/01/23 10:00 06/01/23 10:00 06/01/23 09:00 06/01/23 09:00 06/01/23 08:01 06/01/23 08:01 06/01/23 08:00 06/01/23 07:45 20 40 06/01/23 07:36 20 40 06/01/23 07:10 06/01/23 07:10 06/01/23 05:00 06/01/23 04:55 06/01/23 04:00 06/01/23 03:13 20 40 06/01/23 03:00 06/01/23 02:01 06/01/23 02:00
[2023-06-01 15:03] LABS: Hematocrit (blood only) 23.8 % (42.0-52.0); Hemoglobin 7.5 g/dl (14.0-18.0)
[2023-06-01 17:07] LABS: iSTAT Art Bld Gas pCO2 Correct 63 mmHg (35-46); iSTAT Art Bld Gas pH Corrected 7.372 (7.35-7.45); iSTAT Arterial Blood Gas HCO3 37 meg/L (19-24); iSTAT Arterial Blood Gas pCO2 64 mmHg (35-46); iSTAT Arterial Blood Gas pH 7.37 (7.35-7.45); iSTAT Arterial Blood Gas pO2 58 mmHg (80-95); iSTAT Arterial Blood Gas pO2 C 57; iSTAT Carbon Dioxide 39 mmol/L (24-31); iSTAT FiO2 40 %; iSTAT Hematocrit 24 % (42-52); iSTAT Hemoglobin 8.2 g/dl (14.0-18.0); iSTAT Potassium 4.4 mmol/L (3.3-5.0); iSTAT Site Heel Stick; iSTAT Sodium 139 mmol/L (135-144)
[2023-06-01] MEDS: ACETAMINOPHEN SUSP 325 MG/10.15 ML UDC OG PRN (19:39)
[2023-06-02] MEDS ORDERED: Nursing to Pharmacy Communication SCH (03:15)
[2023-06-02] MEDS: ACETAMINOPHEN SUSP 325 MG/10.15 ML UDC OG PRN ×2 (04:25→13:15)
[2023-06-02 05:17] LABS: BUN Creatinine Ratio 31.7 (10-20); Calcium 8.3 mg/dl (8.6-10.3); Creatinine Clr Calc Pharmacy 117.6 ml/min; Est GFR (Non-African American) 97.5 ml/min; Phosphorus 2.8 mg/dl (2.5-4.9); Potassium 3.9 mmol/L (3.5-5.1)
[2023-06-02 05:38] LABS: Hematocrit (blood only) 24.3 % (42.0-52.0); Hemoglobin 7.4 g/dl (14.0-18.0); Mean Corpuscular Hemoglobin 30.3 pg (25.0-34.0); Mean Corpuscular Hgb Conc 30.5 g/dL (32.0-36.0); Mean Corpuscular Volume 99.6 fL (80.0-100.0); Mean Platelet Volume 12.3 fL (9.4-12.4); Platelet Count 78 K/uL (130-400); RDW Coefficient of Variation 16.3 % (11.5-14.5); RDW Standard Deviation 58.9 fL (36.4-46.3); Red Blood Count 2.44 M/uL (4.70-6.10); White Blood Count 33.42 K/ul (4.8-10.8)
[2023-06-02] MEDS ORDERED: Octagam 10% IVIG 5 gram bottle IV SCH (07:00)
[2023-06-02] MEDS ORDERED: IMMUNE GLOBULIN (HUMAN) SOLN IV ONE (07:00)
[2023-06-02] MEDS ORDERED: IMMUN GLOBG(IGG)/MALT/IGA OV50 100 ML IV SCH (08:00)
[2023-06-02] MEDS ORDERED: Octagam 10% IVIG 30 gram bottle IV SCH (08:00)
[2023-06-02] MEDS: SODIUM CHLOR 7% 4 ML NEB NEB SCH ×2 (08:09→20:26)
[2023-06-02] MEDS: BUDESONIDE 0.25 MG/2 ML VIAL (PULMICORT) NEB SCH ×2 (08:10→20:26)
[2023-06-02] MEDS: FORMOTEROL 20 MCG/2 ML VIAL INH SCH ×2 (08:10→20:25)
[2023-06-02] MEDS ORDERED: predniSONE 10 MG TABLET PO SCH (09:00)
[2023-06-02] MEDS ORDERED: IMMUN GLOBG(IGG)/MALT/IGA OV50 200 ML IV SCH (09:00)
[2023-06-02] MEDS ORDERED: FUROSEMIDE INJ 20 MG/2 ML VIAL IV SCH (09:00)
[2023-06-02] MEDS: FUROSEMIDE 40 MG/4 ML VIAL IV SCH (10:02)
[2023-06-02] MEDS: METHYLCELLULOSE POWDER 454 GM JAR PO SCH (10:03)
[2023-06-02] MEDS: CYANOCOBALAMIN (B-12) 500 MCG TABLET PO SCH (10:03)
[2023-06-02] MEDS: DOCUSATE SODIUM/SENNA 50/8.6MG TAB PO SCH (10:03)
--- NOTE | 2023-06-02 10:21 | Pulmonology Progress Note ---
Date of Service June 02, 2023 Assessment & Plan (1) Acute respiratory acidosis: (2) Pneumonia: Laterality: right Lung location: unspecified part of lung P neumonia type: due to unspecified organism Qualified Code(s): J18.9 - Pneumonia, unspecified organism Plan Impression: 57 yo M w/ a PMHx of CLL not on any treatment, HTN, HLD obesity, HFrEF, COPD on oxygen, GERD was brought in and intubated for respiratory distress. He was reintubated on 3 occasions and eventually underwent tracheostomy 05/24/2023. Recommendations: 1. Hypoxemic hypercarbic respiratory failure status post tracheostomy for failed attempts at liberation from mechanical ventilation. The patient is doing well currently and has been off mechanical ventilation for 48 hours now. He is tolerating trach collar trials and Passy[place] valve placement during the day. Sutures were removed from the tracheostomy. Will continue to follow. If he continues to make progress, may consider capping trials during the day as well. He is pending evaluation at a rehab center. 2. COPD: Continue Perforomist, budesonide, and DuoNebs as needed. Continue pulmonary clearance with guaifenesin and hypertonic saline 3. Continue to increase activity as tolerated out of bed to chair as tolerated. Will continue to follow for pulmonary issues. Feel free to contact us with questions or concerns Admission and Anticipated Discharge Date Admission Date: May 22, 2023 Subjective Patient seen and examined. He is doing well clinically. He tolerated trach collar yesterday and was able to tolerate a Passy-[place] valve with speech therapy. Secretions are manageable. He was dismissed out of the intensive care unit to the floor. He has been on humidified oxygen via trach collar. He feels he is breathing adequately. No significant chest pain. Review of Systems 2 Review of Systems: All systems reviewed & are unremarkable except as noted in HPI & below Physical Exam 2 Constitutional: WD/WN, vitals as above Neck: trachea midline, no thyromegaly Respiratory: normal respiratory effort, lungs clear to auscultation Cardiovascular: RRR, no murmur, no edema Gastrointestinal (Abdomen): normal bowel sounds, soft, nontender, no hepatosplenomegaly Musculoskeletal: Extremities: extremities normal to inspection Skin: no rashes, warm and dry Lymphatic: no cervical lymphadenopathy Results & Data Results & Data Vital Signs (Past 12 Hours) Vital Signs Temp Pulse Pulse Resp BP Pulse Ox O2 Del Method 06/02/23 09:10 Trach Collar 06/02/23 09:09 06/02/23 08:10 88 20 95 Trach Collar 06/02/23 02:21 83 26 H 93 06/02/23 02:21 37.1 C 130/61 06/02/23 00:00 86 25 H 94 06/02/23 00:00 80 06/01/23 23:09 79 19 92 06/01/23 23:09 37.5 C 110/52 L O2 Del Method O2 Flow Rate FiO2 06/02/23 09:10 06/02/23 09:09 Trach Collar 06/02/23 08:10 10 35 06/02/23 02:21 06/02/23 02:21 06/02/23 00:00 06/02/23 00:00 06/01/23 23:09 06/01/23 23:09 Laboratory Results 06/02/23 04:11 06/02/23 04:11 Diagnostic Findings No new imaging PG Care Time/CCT Total # of Minutes Spent Total Time Spent with Patient: Total time spent is greater than 50% in coordination of care (as documented) at patient's floor/unit and/or counseling patient: Coding Level of Care Code 84441 SUB INP/OBS CARE 2/35MIN Diagnoses Acute respiratory acidosis J96.02 Pneumonia J18.9 Laterality: right Lung location: unspecified part of lung Pneumonia type: due to unspecified organism
[2023-06-02] MEDS: NAPHAZOLIN/PHENIRAMIN OPH SOLN 75 DROPS/5 ML BTL OP SCH ×4 (10:42→20:04)
--- NOTE | 2023-06-02 14:53 | Hospitalist Progress Note ---
Date of Service June 02, 2023 Assessment & Plan (1) Acute and chronic respiratory failure: Plan Patient is 57-year-old male with PMH of COPD, chronic hypoxemic respiratory failure requiring 2-3 L NC with exertion and HS, ongoing tobacco use, chronic right-sided heart failure, CLL, selective deficiency of IgA and M and other medical problems listed below who presents with acute respiratory failure requiring intubation. History of multiple admissions for acute respiratory failure in the setting of multifactorial issues including COPD exacerbation, multifocal pneumonia and decompensated heart failure. In 2020, was admitted here and then transferred for [place] for ongoing treatment of MRSA bacteremia in the setting of necrotizing pneumonia, CLL. Was most recently admitted to [facility] in June 2022. with H. influenzae pneumonia. Patient was admitted to ICU for further care. Patient was placed on mechanical ventilation. Patient failed liberation from ventilator for 2 consecutive times. Patient underwent Percutaneous Dilatational Tracheotomy on May 25, 2022. Patient had oozing from the tracheostomy site and underwent Fiberoptic bronchoscopy and local wound care on May 28, 2023. Acute on chronic hypoxemia and hypercapnic respiratory failure status post Percutaneous Dilatational Tracheotomy on May 25, 2022 COPD exacerbation URI with enterovirus/rhinovirus Multilobar pneumonia Recent URI symptoms and increased O2 needs with EMS intubating in the field [employer] CT chest on admission showed cardiomegaly with CHF, multifocal airspace consolidation concerning for multifocal pneumonia. Also had marked splenomegaly, lymphadenopathy and hepatomegaly. Patient failed liberation from ventilator for 2 times and needed to be reintubated. Patient underwent tracheostomy on May 25, 2022. Patient had oozing from the tracheostomy site after the procedure; underwent Fiberoptic bronchoscopy and local wound care on May 28, 2023 Status post 7 days of antibiotics with levofloxacin and Zosyn. Blood culture no growth till date. Off antibiotics. Management of tracheostomy as per Pulm. Tolerating trach collar trials and passy-bobo valve placement during the day. May consider capping trial later this week. c/w Budesonide and formoterol nebs, c/w hypertonic saline nebs. c/w lasix iv daily. Monitor Is and Os. Follow blood and sputum culture. CLL Anemia, thrombocytopenia History of CLL; not on treatment. Follows up with oncology as outpatient Hemoglobin of 6.4 on admission; also had complication of tracheostomy site bleeding (see above) Received 6 units of packed RBC so far. Also 2 unit of pooled platelets. Seen by inpatient hematology; recommend vitamin B12 supplement for low vitamin B12. Also, recommend obtaining CT abdomen and pelvis prior to discharge and close follow-up with hematology as outpatient. Quantitative IgG to be sent; if less than 500; plan for infusion of IVIG 400 mg/kg IV infusion every 4 weeks. IVIG 396.8; IVIG given 06/02/23 Elevated liver enzymes Bilirubin and liver enzymes elevated on May 29 Down trended on subsequent lab work on May 30 Discussed with circulation sales representative regarding the elevated liver enzymes; as per circulation sales representative; the likely cause for it is the tube feeds which can cause gallbladd er to be contracted. Liver USG- no hepatic abnormality. Gallbladder sludge with chronically prominent gallbladder wall. Improving, Continue to monitor Acute kidney injury: Likely secondary to sepsis. Resolved. Chronic right sided heart failure : Home lasix course is 80mg BID, currently on hold. Receiving 40 mg IV Lasix daily. Hyperkalemia : Improved, continue to monitor daily. DVT Ppx: SCDs Code status: FULL PCP: Reva Dispo: PT OT SALES FINANCIAL ANALYST ordered on board. CM assisting w/ placement. Admission and Anticipated Discharge Date Admission Date: May 22, 2023 Subjective Patient was seen and examined at bedside. Patient was lying in bed, on 12 L oxygen via trach collar, NAD. Patient denies any new acute events overnight, feels improving, reports bilateral upper belly pain secondary to coughing improving as cough also improving per pt. Pt w/ fair appetite per RN. Moved BM yesterday. Physical Exam Physical Exam: Constitutional: Awake, comfortable. On 12L O2 via Trach collar ENT; tracheostomy collar in place; no bleeding Respiratory: Bilateral mechanical breath sound Cardiovascular: RRR, no murmur, no edema Vessels: no JVD or carotid bruit Chest: normal inspection of chest Abdomen: Soft, Musculoskeletal: no cyanosis or clubbing, extremities Skin: no rashes, warm and dry normal turgor Neurologic: Awake, able to follow simple commands. Results & Data Results & Data Vital Signs (Past 12 Hours) Vital Signs Pulse Pulse Resp BP Pulse Ox O2 Del Method O2 Del Method 06/02/23 13:08 118/58 L 97 06/02/23 10:55 92 H 06/02/23 09:10 Trach Collar 06/02/23 09:09 Trach Collar 06/02/23 08:13 88 23 129/59 L 94 06/02/23 08:10 88 20 95 Trach Collar O2 Flow Rate FiO2 06/02/23 13:08 06/02/23 10:55 06/02/23 09:10 06/02/23 09:09 06/02/23 08:13 12 40 06/02/23 08:10 10 35
[2023-06-03] MEDS: BUDESONIDE 0.25 MG/2 ML VIAL (PULMICORT) NEB SCH ×2 (05:56→19:27)
[2023-06-03] MEDS: SODIUM CHLOR 7% 4 ML NEB NEB SCH ×2 (05:56→19:27)
[2023-06-03] MEDS: FORMOTEROL 20 MCG/2 ML VIAL INH SCH ×2 (05:56→19:27)
[2023-06-03 06:13] LABS: Hematocrit (blood only) 23.8 % (42.0-52.0); Hemoglobin 7.2 g/dl (14.0-18.0); Mean Corpuscular Hemoglobin 30.1 pg (25.0-34.0); Mean Corpuscular Hgb Conc 30.3 g/dL (32.0-36.0); Mean Corpuscular Volume 99.6 fL (80.0-100.0); Mean Platelet Volume 12.3 fL (9.4-12.4); Platelet Count 79 K/uL (130-400); RDW Coefficient of Variation 16.1 % (11.5-14.5); RDW Standard Deviation 58.4 fL (36.4-46.3); Red Blood Count 2.39 M/uL (4.70-6.10); White Blood Count 31.06 K/ul (4.8-10.8)
[2023-06-03] MEDS: ACETAMINOPHEN SUSP 325 MG/10.15 ML UDC OG PRN (06:23)
[2023-06-03 06:27] LABS: Calcium 8.4 mg/dl (8.6-10.3); Potassium 3.6 mmol/L (3.5-5.1)
[2023-06-03 06:33] LABS: BUN Creatinine Ratio 26.3 (10-20); Creatinine Clr Calc Pharmacy 120.4 ml/min; Est GFR (African American) 114.1 ml/min; Est GFR (Non-African American) 98.5 ml/min; Phosphorus 3.4 mg/dl (2.5-4.9)
[2023-06-03] MEDS: CYANOCOBALAMIN (B-12) 500 MCG TABLET PO SCH (08:48)
[2023-06-03] MEDS: FUROSEMIDE 40 MG/4 ML VIAL IV SCH (08:48)
[2023-06-03] MEDS ORDERED: predniSONE 5 MG TAB PO SCH (09:00)
[2023-06-03] MEDS: DOCUSATE SODIUM/SENNA 50/8.6MG TAB PO SCH (09:01)
[2023-06-03] MEDS: NAPHAZOLIN/PHENIRAMIN OPH SOLN 75 DROPS/5 ML BTL OP SCH ×2 (10:50→14:03)
[2023-06-03] MEDS: METHYLCELLULOSE POWDER 454 GM JAR PO SCH (11:01)
--- NOTE | 2023-06-03 12:12 | Pulmonology Progress Note ---
Date of Service June 03, 2023 Assessment & Plan (1) Acute respiratory acidosis: (2) Pneumonia: Laterality: right Lung location: unspecified part of lung Pneumonia type: due to unspecified organism Qualified Code(s): J18.9 - Pneumonia, unspecified organism Plan Impression: 57 yo M w/ a PMHx of CLL not on any treatment, HTN, HLD obesity, HFrEF, COPD on oxygen, GERD was brought in and intubated for respiratory distress. He was reintubated on 3 occasions and eventually underwent tracheostomy 05/24/2023. Recommendations: 1. Hypoxemic hypercarbic respiratory failure status post tracheostomy for failed attempts at liberation from mechanical ventilation. He has tolerated trach collar trials quite well. Will discuss with respiratory therapy pursuing a trial of capping during the day and seeing how he tolerates it. He should be uncapped at night. If he is able to tolerate capping for 2 to 3 days, consideration for discontinuation of the trach might be appropriate 2. COPD: Continue Perforomist, budesonide, and DuoNebs as needed. Continue pulmonary clearance with guaifenesin and hypertonic saline 3. Continue to increase activity as tolerated out of bed to chair as tolerated. Will continue to follow for pulmonary issues. Feel free to contact us with questions or concerns Admission and Anticipated Discharge Date Admission Date: May 22, 2023 Subjective Patient continues to progress clinically. Is using less than 10 L/min. He is intermittently tolerating a Passy-Cortes valve. He has not noted any bleeding from his trach site. Overall feels like he is doing well. Review of Systems Review of Systems: All systems reviewed & are unremarkable except as noted in Subjective Physical Exam Constitutional: WD/WN, vitals as above ENMT: Trach site clean dry and intact Neck: trachea midline, no thyromegaly Respiratory: normal respiratory effort, lungs clear to auscultation Cardiovascular: RRR, no murmur, no edema Gastrointestinal (Abdomen): normal bowel sounds, soft, nontender, no hepatosplenomegaly Musculoskeletal: Extremities: extremities normal to inspection Skin: no rashes, warm and dry Lymphatic: no cervical lymphadenopathy Results & Data Results & Data Vital Signs (Past 12 Hours) Vital Signs Temp Pulse Resp BP Pulse Ox O2 Del Method O2 Flow Rate 06/03/23 08:00 36.9 C 94 H 18 144/87 H 97 Trach Collar 9 06/03/23 05:56 80 18 95 Trach Collar 10 06/03/23 03:44 37.4 C 92 H 20 144/74 H 93 Trach Collar 9 06/03/23 00:55 Trach Collar FiO2 06/03/23 08:00 06/03/23 05:56 35 06/03/23 03:44 06/03/23 00:55 PG Care Time/CCT Total # of Minutes Spent Total Time Spent with Patient: Total time spent is greater than 50% in coordination of care (as documented) at patient's floor/unit and/or counseling patient: Coding Level of Care Code 98719 SUB INP/OBS CARE 2/35MIN Diagnoses Acute respiratory acidosis J96.02 Pneumonia J18.9 Laterality: right Lung location: unspecified part of lung Pneumonia type: due to unspecified organism
[2023-06-03 14:51] LABS: Hematocrit (blood only) 27.1 % (42.0-52.0); Hemoglobin 8.4 g/dl (14.0-18.0)
--- NOTE | 2023-06-03 16:21 | Hospitalist Progress Note ---
Date of Service June 03, 2023 Assessment & Plan (1) Acute and chronic respiratory failure: Plan Patient is 57-year-old male with PMH of COPD, chronic hypoxemic respiratory failure requiring 2-3 L NC with exertion and HS, ongoing tobacco use, chronic right-sided heart failure, CLL, selective deficiency of IgA and M and other medical problems listed below who presents with acute respiratory failure requiring intubation. History of multiple admissions for acute respiratory failure in the setting of multifactorial issues including COPD exacerbation, multifocal pneumonia and decompensated heart failure. In 2020, was admitted here and then transferred for [place] for ongoing treatment of MRSA bacteremia in the setting of necrotizing pneumonia, CLL. Was most recently admitted to [facility] in June 2022. with H. influenzae pneumonia. Patient was admitted to ICU for further care. Patient was placed on mechanical ventilation. Patient failed liberation from ventilator for 2 consecutive times. Patient underwent Percutaneous Dilatational Tracheotomy on May 25, 2022. Patient had oozing from the tracheostomy site and underwent Fiberoptic bronchoscopy and local wound care on May 28, 2023. Acute on chronic hypoxemia and hypercapnic respiratory failure status post Percutaneous Dilatational Tracheotomy on May 25, 2022 COPD exacerbation URI with enterovirus/rhinovirus Multilobar pneumonia Recent URI symptoms and increased O2 needs with EMS intubating in the field [employer] CT chest on admission showed cardiomegaly with CHF, multifocal airspace consolidation concerning for multifocal pneumonia. Also had marked splenomegaly, lymphadenopathy and hepatomegaly. Patient failed liberation from ventilator for 2 times and needed to be reintubated. Patient underwent tracheostomy on May 25, 2022. Patient had oozing from the tracheostomy site after the procedure; underwent Fiberoptic bronchoscopy and local wound care on May 28, 2023 Status post 7 days of antibiotics with levofloxacin and Zosyn. Blood culture no growth till date. Off antibiotics. Management of tracheostomy as per Pulm. Tolerating trach collar trials, considering trial of capping during the day. c/w Budesonide and formoterol nebs, c/w hypertonic saline nebs. c/w lasix iv daily. Monitor Is and Os. Follow blood and sputum culture. CLL Anemia, thrombocytopenia History of CLL; not on treatment. Follows up with oncology as outpatient Hemoglobin of 6.4 on admission; also had complication of tracheostomy site bleeding (see above) Received 6 units of packed RBC so far. Also 2 unit of pooled platelets. Seen by inpatient hematology; recommend vitamin B12 supplement for low vitamin B12. Also, recommend obtaining CT abdomen and pelvis prior to discharge and close follow-up with hematology as outpatient. Quantitative IgG to be sent; if less than 500; plan for infusion of IVIG 400 mg/kg IV infusion every 4 weeks. IVIG 396.8; IVIG given 06/02/23 Elevated liver enzymes Bilirubin and liver enzymes elevated on May 29 Down trended on subsequent lab work on May 30 Discussed with sap director regarding the elevated liver enzymes; as per sap director; the likely cause for it is the tube feeds which can cause gallbladder to be contracted. Liver USG- no hepatic abnormality. Gallbladder sludge with chronically prominent gallbladder wall. Improving, Continue to monitor Acute kidney injury: Likely secondary to sepsis. Resolved. Chronic right sided heart failure : Home lasix course is 80mg BID, currently on hold. Receiving 40 mg IV Lasix daily. Hyperkalemia : Improved, continue to monitor daily. DVT Ppx: SCDs Code status: FULL PCP: Reva Dispo: PT OT TAILOR WOMEN'S GARMENT ALTERATION ordered on board. CM assisting w/ placement. Admission and Anticipated Discharge Date Admission Date: May 22, 2023 Subjective Patient was seen and examined at bedside. Patient was lying in bed, on 9 L oxygen via trach collar, NAD. Patient denies any new acute events overnight, feels improving, reports bilateral upper belly pain secondary to coughing improving as cough also improving per pt. Pt w/ fair appetite per RN. Moving BM okay. Physical Exam Physical Exam: Constitutional: Awake, comfortable. On 9L O2 via Trach collar ENT; tracheostomy collar in place; no bleeding Respiratory: Bilateral mechanical breath sound Cardiovascular: RRR, no murmur, no edema Vessels: no JVD or carotid bruit Chest: normal inspection of chest Abdomen: Soft, Musculoskeletal: no cyanosis or clubbing, extremities Skin: no rashes, warm and dry normal turgor Neurologic: Awake, able to follow simple commands. Results & Data Results & Data Vital Signs (Past 12 Hours) Vital Signs Temp Pulse Pulse Resp BP Pulse Ox O2 Del Method 06/03/23 15:11 88 06/03/23 11:30 36.5 C 96 H 20 131/69 97 Trach Collar 06/03/23 08:00 Trach Collar 06/03/23 08:00 92 H 06/03/23 08:00 36.9 C 94 H 18 144/87 H 97 Trach Collar 06/03/23 05:56 80 18 95 Trach Collar O2 Flow Rate FiO2 06/03/23 15:11 06/03/23 11:30 9 06/03/23 08:00 06/03/23 08:00 06/03/23 08:00 9 06/03/23 05:56 10 35
[2023-06-04] MEDS: FORMOTEROL 20 MCG/2 ML VIAL INH SCH ×2 (07:17→19:13)
[2023-06-04] MEDS: SODIUM CHLOR 7% 4 ML NEB NEB SCH ×2 (07:17→19:13)
[2023-06-04] MEDS: BUDESONIDE 0.25 MG/2 ML VIAL (PULMICORT) NEB SCH ×3 (07:18→19:13)
[2023-06-04 08:04] LABS: Hematocrit (blood only) 23.4 % (42.0-52.0); Hemoglobin 7.3 g/dl (14.0-18.0); Mean Corpuscular Hemoglobin 30.5 pg (25.0-34.0); Mean Corpuscular Hgb Conc 31.2 g/dL (32.0-36.0); Mean Corpuscular Volume 97.9 fL (80.0-100.0); Mean Platelet Volume 12.3 fL (9.4-12.4); Platelet Count 87 K/uL (130-400); Red Blood Count 2.39 M/uL (4.70-6.10); White Blood Count 31.76 K/ul (4.8-10.8)
[2023-06-04 08:13] LABS: BUN Creatinine Ratio 27.2 (10-20); Calcium 8.7 mg/dl (8.6-10.3); Creatinine Clr Calc Pharmacy 120.2 ml/min; Est GFR (African American) 113.5 ml/min; Potassium 3.8 mmol/L (3.5-5.1)
--- NOTE | 2023-06-04 08:46 | Pulmonology Progress Note ---
Date of Service June 04, 2023 Assessment & Plan (1) Acute respiratory acidosis: (2) Pneumonia: Laterality: right Lung location: unspecified part of lung P neumonia type: due to unspecified organism Qualified Code(s): J18.9 - Pneumonia, unspecified organism Plan Impression: 57 yo M w/ a PMHx of CLL not on any treatment, HTN, HLD obesity, HFrEF, COPD on oxygen, GERD was brought in and intubated for respiratory distress. He was reintubated on 3 occasions and eventually underwent tracheostomy 05/24/2023. Recommendations: 1. Hypoxemic hypercarbic respiratory failure status post tracheostomy for failed attempts at liberation from mechanical ventilation. He has tolerated trach collar trials quite well. Unclear what the difficulty was with speaking valve yesterday. Will try again today. He should be able to tolerate a speaking valve prior to us considering a trial of capping. Likely needs some aggressive suctioning this morning. 2. COPD: Continue Perforomist, budesonide, and DuoNebs as needed. Continue pulmonary clearance with guaifenesin and hypertonic saline 3. Continue to increase activity as tolerated out of bed to chair as tolerated. Will continue to follow for pulmonary issues. Feel free to contact us with questions or concerns Admission and Anticipated Discharge Date Admission Date: May 22, 2023 Subjective Patient seen and examined. Reviewed. Patient is doing well. Did have some difficulty yesterday speaking valve was placed on his trach tube with increasing shortness of breath and was poorly tolerant of it. Was discontinued. He did well overnight. He is having some rhonchorous secretions this morning will be needs to be suctioned. He has not had fevers chills or night sweats. He continues to work with respiratory therapy and is tolerating a diet Review of Systems 2 Review of Systems: All systems reviewed & are unremarkable except as noted in Subjective Physical Exam 2 Constitutional: WD/WN, vitals as above ENMT: Rhonchorous breath sounds emanating from the trach Neck: trachea midline, no thyromegaly Respiratory: normal respiratory effort, lungs clear to auscultation Cardiovascular: RRR, no murmur, no edema Gastrointestinal (Abdomen): normal bowel sounds, soft, nontender, no hepatosplenomegaly Musculoskeletal: Extremities: extremities normal to inspection Skin: no rashes, warm and dry Lymphatic: no cervical lymphadenopathy Results & Data Results & Data Vital Signs (Past 12 Hours) Vital Signs Temp Pulse Pulse Resp BP Pulse Ox O2 Del Method 06/04/23 07:52 90 22 94 Trach Collar 06/04/23 07:38 37.1 C 85 21 112/65 97 Trach Collar 06/04/23 03:00 36.9 C 91 H 22 132/68 98 Trach Collar 06/04/23 00:00 83 06/03/23 23:00 37.3 C 85 24 125/64 97 Trach Collar O2 Flow Rate FiO2 06/04/23 07:52 10 35 06/04/23 07:38 9 06/04/23 03:00 06/04/23 00:00 06/03/23 23:00 Laboratory Results 06/04/23 06:35 06/04/23 06:35 Diagnostic Findings Unchanged from prior PG Care Time/CCT Total # of Minutes Spent Total Time Spent with Patient: Total time spent is greater than 50% in coordination of care (as documented) at patient's floor/unit and/or counseling patient: Coding Level of Care Code 96640 SUB INP/OBS CARE 2/35MIN Diagnoses Acute respiratory acidosis J96.02 Pneumonia J18.9 Laterality: right Lung location: unspecified part of lung Pneumonia type: due to unspecified organism
[2023-06-04] MEDS: CYANOCOBALAMIN (B-12) 500 MCG TABLET PO SCH (09:16)
[2023-06-04] MEDS: METHYLCELLULOSE POWDER 454 GM JAR PO SCH (09:16)
[2023-06-04] MEDS: DOCUSATE SODIUM/SENNA 50/8.6MG TAB PO SCH (09:19)
[2023-06-04] MEDS: FUROSEMIDE 40 MG/4 ML VIAL IV SCH (09:24)
--- NOTE | 2023-06-04 13:19 | Hospitalist Progress Note ---
Date of Service June 04, 2023 Assessment & Plan (1) Acute and chronic respiratory failure: Plan Patient is 57-year-old male with PMH of COPD, chronic hypoxemic respiratory failure requiring 2-3 L NC with exertion and HS, ongoing tobacco use, chronic right-sided heart failure, CLL, selective deficiency of IgA and M and other medical problems listed below who presents with acute respiratory failure requiring intubation. History of multiple admissions for acute respiratory failure in the setting of multifactorial issues including COPD exacerbation, multifocal pneumonia and decompensated heart failure. In 2020, was admitted here and then transferred for [place] for ongoing treatment of MRSA bacteremia in the setting of necrotizing pneumonia, CLL. Was most recently admitted to [facility] in June 2022. with H. influenzae pneumonia. Patient was admitted to ICU for further care. Patient was placed on mechanical ventilation. Patient failed liberation from ventilator for 2 consecutive times. Patient underwent Percutaneous Dilatational Tracheotomy on May 25, 2022. Patient had oozing from the tracheostomy site and underwent Fiberoptic bronchoscopy and local wound care on May 28, 2023. Acute on chronic hypoxemia and hypercapnic respiratory failure status post Percutaneous Dilatational Tracheotomy on May 25, 2022 COPD exacerbation URI with enterovirus/rhinovirus Multilobar pneumonia Recent URI symptoms and increased O2 needs with EMS intubating in the field [employer] CT chest on admission showed cardiomegaly with CHF, multifocal airspace consolidation concerning for multifocal pneumonia. Also had marked splenomegaly, lymphadenopathy and hepatomegaly. Patient failed liberation from ventilator for 2 times and needed to be reintubated. Patient underwent tracheostomy on May 25, 2022. Patient had oozing from the tracheostomy site after the procedure; underwent Fiberoptic bronchoscopy and local wound care on May 28, 2023 Status post 7 days of antibiotics with levofloxacin and Zosyn. Blood culture no growth till date. Off antibiotics. Management of tracheostomy as per Pulm. c/w Budesonide and formoterol nebs, c/w hypertonic saline nebs. c/w lasix iv daily. Monitor Is and Os. Follow blood and sputum culture. CLL Anemia, thrombocytopenia History of CLL; not on treatment. Follows up with oncology as outpatient Hemoglobin of 6.4 on admission; also had complication of tracheostomy site bleeding (see above) Received 6 units of packed RBC so far. Also 2 unit of pooled platelets. Seen by inpatient hematology; recommend vitamin B12 supplement for low vitamin B12. Also, recommend obtaining CT abdomen and pelvis prior to discharge and close follow-up with hematology as outpatient. Quantitative IgG to be sent; if less than 500; plan for infusion of IVIG 400 mg/kg IV infusion every 4 weeks. IVIG 396.8; IVIG given 06/02/23 Elevated liver enzymes Bilirubin and liver enzymes elevated on May 29 Down trended on subsequent lab work on May 30 Discussed with canning machine operator regarding the elevated liver enzymes; as per inte nsivist; the likely cause for it is the tube feeds which can cause gallbladder to be contracted. Liver USG- no hepatic abnormality. Gallbladder sludge with chronically prominent gallbladder wall. Improving, Continue to monitor Acute kidney injury: Likely secondary to sepsis. Resolved. Chronic right sided heart failure : Home lasix course is 80mg BID, currently on hold. Receiving 40 mg IV Lasix daily. Hyperkalemia : Improved, continue to monitor daily. DVT Ppx: SCDs Code status: FULL PCP: Reva Dispo: PT OT PASTE THINNER ordered on board. CM assisting w/ placement. Admission and Anticipated Discharge Date Admission Date: May 22, 2023 Subjective Patient was seen and examined at bedside. Patient was sitting up in bed, on 9 L oxygen via trach collar, NAD. Patient denies any new acute events overnight, feels improving, reports improving cough. Pt w/ fair appetite per RN. Moving BM okay. Physical Exam Physical Exam: Constitutional: Awake, comfortable. On 9L O2 via Trach collar ENT; tracheostomy collar in place; no bleeding Respiratory: Bilateral crackles Cardiovascular: RRR, no murmur, no edema Vessels: no JVD or carotid bruit Chest: normal inspection of chest Abdomen: Soft, Musculoskeletal: no cyanosis or clubbing, extremities Skin: no rashes, warm and dry normal turgor Neurologic: Awake, able to follow simple commands. Results & Data Results & Data Vital Signs (Past 12 Hours) Vital Signs Temp Pulse Pulse Resp BP Pulse Ox O2 Del Method 06/04/23 11:19 36.9 C 91 H 19 111/65 94 Trach Collar 06/04/23 08:00 Trach Collar 06/04/23 08:00 86 06/04/23 07:52 90 22 94 Trach Collar 06/04/23 07:38 37.1 C 85 21 112/65 97 Trach Collar 06/04/23 03:00 36.9 C 91 H 22 132/68 98 Trach Collar O2 Flow Rate FiO2 06/04/23 11:19 9 06/04/23 08:00 06/04/23 08:00 06/04/23 07:52 10 35 06/04/23 07:38 9 06/04/23 03:00
[2023-06-05 06:32] LABS: Hematocrit (blood only) 23.8 % (42.0-52.0); Hemoglobin 7.3 g/dl (14.0-18.0); Mean Corpuscular Hemoglobin 30.4 pg (25.0-34.0); Mean Corpuscular Hgb Conc 30.7 g/dL (32.0-36.0); Mean Corpuscular Volume 99.2 fL (80.0-100.0); Mean Platelet Volume 11.1 fL (9.4-12.4); Platelet Count 89 K/uL (130-400); RDW Coefficient of Variation 15.9 % (11.5-14.5); RDW Standard Deviation 57.1 fL (36.4-46.3); White Blood Count 32.34 K/ul (4.8-10.8)
[2023-06-05 06:43] LABS: BUN Creatinine Ratio 25.3 (10-20); Calcium 8.7 mg/dl (8.6-10.3); Creatinine Clr Calc Pharmacy 105.7 ml/min; Est GFR (African American) 107.3 ml/min; Est GFR (Non-African American) 92.6 ml/min; Magnesium 1.9 mg/dl (1.7-2.4); Phosphorus 3.9 mg/dl (2.5-4.9)
[2023-06-05] MEDS: FORMOTEROL 20 MCG/2 ML VIAL INH SCH ×2 (07:38→19:22)
[2023-06-05] MEDS: BUDESONIDE 0.25 MG/2 ML VIAL (PULMICORT) NEB SCH ×2 (07:38→19:22)
[2023-06-05] MEDS: SODIUM CHLOR 7% 4 ML NEB NEB SCH ×2 (07:38→19:22)
[2023-06-05] MEDS: CYANOCOBALAMIN (B-12) 500 MCG TABLET PO SCH (08:28)
[2023-06-05] MEDS: DOCUSATE SODIUM/SENNA 50/8.6MG TAB PO SCH (08:28)
[2023-06-05] MEDS: FUROSEMIDE 40 MG/4 ML VIAL IV SCH (08:28)
[2023-06-05] MEDS: METHYLCELLULOSE POWDER 454 GM JAR PO SCH (08:29)
--- NOTE | 2023-06-05 08:41 | Pulmonology Progress Note ---
Date of Service June 05, 2023 Assessment & Plan (1) Acute respiratory acidosis: (2) Pneumonia: Laterality: right Lung location: unspecified part of lung P neumonia type: due to unspecified organism Qualified Code(s): J18.9 - Pneumonia, unspecified organism Plan Impression: 57 yo M w/ a PMHx of CLL not on any treatment, HTN, HLD obesity, HFrEF, COPD on oxygen, GERD was brought in and intubated for respiratory distress. He was reintubated on 3 occasions and eventually underwent tracheostomy 05/24/2023. He is doing well on trach collar and has not required positive airway pressure ventilation several days Recommendations: 1. Hypoxemic hypercarbic respiratory failure status post tracheostomy for failed attempts at liberation from mechanical ventilation. He has tolerated trach collar trials quite well. He may not be able to tolerate the speaking valve very well as his current trach is nonfenestrated and may be occluding a significant portion of his airway making it difficult for him to pass air through his vocal cords. His secretions are manageable and he is on minimal oxygen. Let him stabilize this morning and then consider decannulation as I do not think he would tolerate capping trials and I do not think we need to downsize his trach at this point in time. Should be able to supply oxygen via nasal cannula and high flow if needed 2. COPD: Continue Perforomist, budesonide, and DuoNebs as needed. Continue pulmonary clearance with guaifenesin and hypertonic saline 3. Continue to increase activity as tolerated out of bed to chair as tolerated. Discussed with patient and nurse at bedside. Questions were answered to the best my ability. He is in agreement with the plan Admission and Anticipated Discharge Date Admission Date: May 22, 2023 Subjective Patient is doing well clinically. He is sitting up at the bedside. He just finished breakfast. His secretions are manageable. He did tolerate the [place] valve for a period of time yesterday but then became somewhat short of breath. He has remained off nocturnal positive airway pressure ventilation and is doing well. He has not had any fevers chills or night sweats. Review of Systems 2 Review of Systems: All systems reviewed & are unremarkable except as noted in Subjective Physical Exam 2 Constitutional: WD/WN, vitals as above ENMT: Trach site clean dry and intact Neck: trachea midline, no thyromegaly Respiratory: normal respiratory effort, lungs clear to auscultation Cardiovascular: RRR, no murmur, no edema Gastrointestinal (Abdomen): normal bowel sounds, soft, nontender, no hepatosplenomegaly Musculoskeletal: Extremities: extremities normal to inspection Skin: no rashes, warm and dry Lymphatic: no cervical lymphadenopathy Results & Data Results & Data Vital Signs (Past 12 Hours) Vital Signs Temp Pulse Pulse Resp BP Pulse Ox O2 Del Method 06/05/23 07:45 Trach Collar 06/05/23 07:45 89 06/05/23 07:38 90 20 91 Trach Collar 06/05/23 07:09 37.0 C 87 20 116/65 Trach Collar 06/05/23 03:00 37.1 C 90 23 122/69 94 Trach Collar 06/05/23 00:00 86 06/04/23 23:00 37.2 C 83 20 115/63 95 Trach Collar 06/04/23 21:41 Trach Collar O2 Flow Rate FiO2 06/05/23 07:45 10 06/05/23 07:45 06/05/23 07:38 12 35 06/05/23 07:09 06/05/23 03:00 06/05/23 00:00 06/04/23 23:00 06/04/23 21:41 Laboratory Results 06/05/23 06:16 06/05/23 06:16 PG Care Time/CCT Total # of Minutes Spent Total Time Spent with Patient: Total time spent is greater than 50% in coordination of care (as documented) at patient's floor/unit and/or counseling patient: Coding Level of Care Code 80231 SUB INP/OBS CARE 2/35MIN Diagnoses Acute respiratory acidosis J96.02 Pneumonia J18.9 Laterality: right Lung location: unspecified part of lung Pneumonia type: due to unspecified organism
[2023-06-05] MEDS ORDERED: predniSONE 5 MG TAB PO SCH (09:00)
--- NOTE | 2023-06-05 15:31 | Hospitalist Progress Note ---
Date of Service June 05, 2023 Assessment & Plan (1) Acute and chronic respiratory failure: Plan Patient is 57-year-old male with PMH of COPD, chronic hypoxemic respiratory failure requiring 2-3 L NC with exertion and HS, ongoing tobacco use, chronic right-sided heart failure, CLL, selective deficiency of IgA and M and other medical problems listed below who presents with acute respiratory failure requiring intubation. History of multiple admissions for acute respiratory failure in the setting of multifactorial issues including COPD exacerbation, multifocal pneumonia and decompensated heart failure. In 2020, was admitted here and then transferred for [place] for ongoing treatment of MRSA bacteremia in the setting of necrotizing pneumonia, CLL. Was most recently admitted to [facility] in June 2022. with H. influenzae pneumonia. Patient was admitted to ICU for further care. Patient was placed on mechanical ventilation. Patient failed liberation from ventilator for 2 consecutive times. Patient underwent Percutaneous Dilatational Tracheotomy on May 25, 2022. Patient had oozing from the tracheostomy site and underwent Fiberoptic bronchoscopy and local wound care on May 28, 2023. 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 Also had marked splenomegaly, lymphadenopathy and hepatomegaly. Patient failed liberation from ventilator for 2 times and needed to be reintubated. Patient underwent tracheostomy on May 25, 2022. Patient had oozing from the tracheostomy site after the procedure; underwent Fiberoptic bronchoscopy and local wound care on May 28, 2023 Status post 7 days of antibiotics with levofloxacin and Zosyn. Blood culture no growth till date. Off antibiotics. Decannulation 06/05 per Pulm. Pt saturation well on 5 L NC O2. Pt able to phonate. Pt report feeling better. c/w Budesonide and formoterol nebs, c/w hypertonic saline nebs. c/w lasix iv daily. Monitor Is and Os. Follow blood and sputum culture. CLL Anemia, thrombocytopenia History of CLL; not on treatment. Follows up with oncology as outpatient Hemoglobin of 6.4 on admission; also had complication of tracheostomy site bleeding (see above) Received 6 units of packed RBC so far. Also 2 unit of pooled platelets. Seen by inpatient hematology; recommend vitamin B12 supplement for low vitamin B12. Also, recommend obtaining CT abdomen and pelvis prior to discharge and close follow-up with hematology as outpatient. Quantitative IgG to be sent; if less than 500; plan for infusion of IVIG 400 mg/kg IV infusion every 4 weeks. IVIG 396.8; IVIG given 06/02/23 Elevated liver enzymes Bilirubin and liver enzymes elevated on May 29 Down trended on subsequent lab work on May 30 Discussed with pilling machine operator regarding the elevated liver enzymes; as per pilling machine operator; the likely cause for it is the tube feeds which can cause gallbladder to be contracted. Liver USG- no hepatic abnormality. Gallbladder sludge with chronically prominent gallbladder wall. Improving, Continue to monitor Acute kidney injury: Likely secondary to sepsis. Resolved. Chronic right sided heart failure : Home lasix course is 80mg BID, currently on hold. Receiving 40 mg IV Lasix daily. Hyperkalemia : Improved, continue to monitor daily. DVT Ppx: SCDs Code status: FULL PCP: Reva Dispo: PT OT COMPUTER AIDED DESIGN OPERATOR ordered on board. CM assisting w/ placement. Admission and Anticipated Discharge Date Admission Date: May 22, 2023 Subjective Patient was seen and examined at bedside. Patient was sitting up in bed, on 5 L oxygen via NC, NAD Patient denies any new acute events overnight, feels improving, reports improving cough. Pt w/ fair appetite per RN. Moving BM okay. Physical Exam Physical Exam: Constitutional: Awake, comfortable. On 5 L O2 via NC. ENT; tracheostomy collar in place; no bleeding Respiratory: Bilateral crackles Cardiovascular: RRR, no murmur, no edema Vessels: no JVD or carotid bruit Chest: normal inspection of chest Abdomen: Soft, Musculoskeletal: no cyanosis or clubbing, extremities Skin: no rashes, warm and dry normal turgor Neurologic: Awake, able to follow simple commands. Results & Data Results & Data Vital Signs (Past 12 Hours) Vital Signs Temp Pulse Pulse Resp BP Pulse Ox O2 Del Method 06/05/23 15:18 36.4 C L 86 19 102/64 92 Nasal Cannula 06/05/23 11:11 36.7 C 98 H 18 108/66 93 Nasal Cannula 06/05/23 07:45 Trach Collar 06/05/23 07:45 89 06/05/23 07:38 90 20 91 Trach Collar 06/05/23 07:09 37.0 C 87 20 116/65 Trach Collar O2 Flow Rate FiO2 06/05/23 15:18 4 06/05/23 11:11 4 06/05/23 07:45 10 06/05/23 07:45 06/05/23 07:38 12 35 06/05/23 07:09
[2023-06-06 06:09] LABS: Hematocrit (blood only) 22.7 % (42.0-52.0); Hemoglobin 7.1 g/dl (14.0-18.0)
[2023-06-06 06:22] LABS: BUN Creatinine Ratio 28.7 (10-20); Calcium 8.6 mg/dl (8.6-10.3); Est GFR (African American) 94.6 ml/min; Est GFR (Non-African American) 81.6 ml/min; Phosphorus 4.1 mg/dl (2.5-4.9); Potassium 3.9 mmol/L (3.5-5.1)
[2023-06-06] MEDS: BUDESONIDE 0.25 MG/2 ML VIAL (PULMICORT) NEB SCH ×2 (07:06→18:22)
[2023-06-06] MEDS: SODIUM CHLOR 7% 4 ML NEB NEB SCH ×2 (07:06→18:22)
[2023-06-06] MEDS: FORMOTEROL 20 MCG/2 ML VIAL INH SCH ×2 (07:06→18:22)
[2023-06-06] MEDS: DOCUSATE SODIUM/SENNA 50/8.6MG TAB PO SCH (08:54)
[2023-06-06] MEDS: METHYLCELLULOSE POWDER 454 GM JAR PO SCH (08:54)
[2023-06-06] MEDS: CYANOCOBALAMIN (B-12) 500 MCG TABLET PO SCH (08:55)
[2023-06-06] MEDS: FUROSEMIDE 40 MG/4 ML VIAL IV SCH (08:58)
--- NOTE | 2023-06-06 11:47 | Pulmonology Progress Note ---
Date of Service June 06, 2023 Assessment & Plan (1) Acute respiratory acidosis: (2) Pneumonia: Laterality: right Lung location: unspecified part of lung Pneumonia type: due to unspecified organism Qualified Code(s): J18.9 - Pneumonia, unspecified organism Plan Impression: 57 yo M w/ a PMHx of CLL not on any treatment, HTN, HLD obesity, HFrEF, COPD on oxygen, GERD was brought in and intubated for respiratory distress. He was reintubated on 3 occasions and eventually underwent tracheostomy 05/24/2023. His tracheostomy was decannulated 06/05/2023 Recommendations: 1. Hypoxemic/hypercarbic respiratory failure status post tracheostomy for failed attempts at liberation from mechanical ventilation. He is now decannulated and doing well on low-flow oxygen via his nose. Continue daily dressing changes on tracheostomy site. Continue BiPAP nightly. 2. COPD: Continue Perforomist, budesonide, and DuoNebs as needed. Continue pulmonary clearance with guaifenesin and hypertonic saline 3. Continue to increase activity as tolerated out of bed to chair as tolerated to improve overall strength and minimize atelectasis. Admission and Anticipated Discharge Date Admission Date: May 22, 2023 Subjective Patient is comfortable today and saturating well on low-flow oxygen. Denies any neck pain or chest pain. No shortness of breath. No fevers, chills or night sweats. Review of Systems Review of Systems: All systems reviewed & are unremarkable except as noted in Subjective Physical Exam Constitutional: WD/WN, vitals as above ENMT: Trach site clean dry and intact Neck: trachea midline, no thyromegaly Respiratory: normal respiratory effort, lungs clear to auscultation Cardiovascular: RRR, no murmur, no edema Gastrointestinal (Abdomen): normal bowel sounds, soft, nontender, no hepatosplenomegaly Musculoskeletal: Extremities: extremities normal to inspection Skin: no rashes, warm and dry Lymphatic: no cervical lymphadenopathy Results & Data Results & Data Vital Signs (Past 12 Hours) Vital Signs Temp Pulse Pulse Resp BP Pulse Ox O2 Del Method 06/06/23 11:17 36.5 C 92 H 20 113/56 L 95 Nasal Cannula 06/06/23 07:53 88 06/06/23 07:46 36.6 C 95 H 20 103/64 92 Nasal Cannula 06/06/23 07:22 Nasal Cannula 06/06/23 07:06 71 18 94 Nasal Cannula 06/06/23 02:41 37.1 C 89 19 119/71 95 Nasal Cannula 06/06/23 00:00 88 O2 Flow Rate 06/06/23 11:17 06/06/23 07:53 06/06/23 07:46 06/06/23 07:22 4 06/06/23 07:06 4 06/06/23 02:41 4 06/06/23 00:00 PG Care Time/CCT Total # of Minutes Spent Total Time Spent with Patient: Total time spent is greater than 50% in coordination of care (as documented) at patient's floor/unit and/or counseling patient: Coding Level of Care Code 29075 SUB INP/OBS CARE 06/16MIN Diagnoses Acute respiratory acidosis J96.02 Pneumonia J18.9 Laterality: right Lung location: unspecified part of lung Pneumonia type: due to unspecified organism
[2023-06-06 13:23] LABS: Hemoglobin 7.3 g/dl (14.0-18.0)
--- NOTE | 2023-06-06 14:44 | Hospitalist Progress Note ---
Date of Service June 06, 2023 Assessment & Plan (1) Acute and chronic respiratory failure: Plan Patient is 57-year-old male with PMH of COPD, chronic hypoxemic respiratory failure requiring 2-3 L NC with exertion and HS, ongoing tobacco use, chronic right-sided heart failure, CLL, selective deficiency of IgA and M and other medical problems listed below who presents with acute respiratory failure requiring intubation. History of multiple admissions for acute respiratory failure in the setting of multifactorial issues including COPD exacerbation, multifocal pneumonia and decompensated heart failure. In 2020, was admitted here and then transferred for [place] for ongoing treatment of MRSA bacteremia in the setting of necrotizing pneumonia, CLL. Was most recently admitted to [facility] in June 2022. with H. influenzae pneumonia. Patient was admitted to ICU for further care. Patient was placed on mechanical ventilation. Patient failed liberation from ventilator for 2 consecutive times. Patient underwent Percutaneous Dilatational Tracheotomy on May 25, 2022. Patient had oozing from the tracheostomy site and underwent Fiberoptic bronchoscopy and local wound care on May 28, 2023. 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 Also had marked splenomegaly, lymphadenopathy and hepatomegaly. Patient failed liberation from ventilator for 2 times and needed to be reintubated. Patient underwent tracheostomy on May 25, 2022. Patient had oozing from the tracheostomy site after the procedure; underwent Fiberoptic bronchoscopy and local wound care on May 28, 2023 Status post 7 days of antibiotics with levofloxacin and Zosyn. Blood culture no growth till date. Off antibiotics. Decannulation 06/05 per Pulm. Pt saturation well on 4 L NC O2. Pt able to phonate. Pt report feeling better. c/w Budesonide and formoterol nebs, c/w hypertonic saline nebs. c/w lasix iv daily. to home po lasix marquez. Monitor Is and Os. Follow blood and sputum culture. CLL Anemia, thrombocytopenia History of CLL; not on treatment. Follows up with oncology as outpatient Hemoglobin of 6.4 on admission; also had complication of tracheostomy site bleeding (see above) Received 6 units of packed RBC so far. Also 2 unit of pooled platelets. Seen by inpatient hematology; recommend vitamin B12 supplement for low vitamin B12. Also, recommend obtaining CT abdomen and pelvis prior to discharge and close follow-up with hematology as outpatient. Quantitative IgG to be sent; if less than 500; plan for infusion of IVIG 400 mg/kg IV infusion every 4 weeks. IVIG 396.8; IVIG given 06/02/23 Elevated liver enzymes Bilirubin and liver enzymes elevated on May 29 Down trended on subsequent lab work on May 30 Discussed with hand zipper trimmer regarding the elevated liver enzymes; as per hand zipper trimmer; the likely cause for it is the tube feeds which can cause gallbladder to be contracted. Liver USG- no hepatic abnormality. Gallbladder sludge with chronically prominent gallbladder wall. Improving, Continue to monitor Acute kidney injury: Likely secondary to sepsis. Resolved. Chronic right sided heart failure : Home lasix course is 80mg BID, currently on hold. Receiving 40 mg IV Lasix daily. Hyperkalemia : Improved, continue to monitor daily. DVT Ppx: SCDs Code status: FULL PCP: Reva Dispo: PT OT REGISTERED NURSE CARDIOVASCULAR ICU ordered on board. CM assisting w/ placement. With Pulm Clearance and recs. Admission and Anticipated Discharge Date Admission Date: May 22, 2023 Subjective Patient was seen and examined at bedside. Patient was sitting up in bed, on 4 L oxygen via NC, NAD Patient denies any new acute events overnight, feels improving, reports improving cough. Pt w/ fair appetite per RN. Moving BM okay. Pt reports feeling better. Physical Exam Physical Exam: Constitutional: Awake, comfortable. On 4 L O2 via NC. ENT; clean dressing ant neck; no bleeding Respiratory: Bilateral crackles Cardiovascular: RRR, no murmur, no edema Vessels: no JVD or carotid bruit Chest: normal inspection of chest Abdomen: Soft, Musculoskeletal: no cyanosis or clubbing, extremities Skin: no rashes, warm and dry normal turgor Neurologic: Awake, able to follow simple commands. Results & Data Results & Data Vital Signs (Past 12 Hours) Vital Signs Temp Pulse Pulse Resp BP Pulse Ox O2 Del Method 06/06/23 11:17 36.5 C 92 H 20 113/56 L 95 Nasal Cannula 06/06/23 07:53 88 06/06/23 07:46 36.6 C 95 H 20 103/64 92 Nasal Cannula 06/06/23 07:22 Nasal Cannula 06/06/23 07:06 71 18 94 Nasal Cannula 06/06/23 02:41 37.1 C 89 19 119/71 95 Nasal Cannula O2 Flow Rate 06/06/23 11:17 06/06/23 07:53 06/06/23 07:46 06/06/23 07:22 4 06/06/23 07:06 4 06/06/23 02:41 4
[2023-06-07 06:48] LABS: Hematocrit (blood only) 22.4 % (42.0-52.0)
[2023-06-07] MEDS: BUDESONIDE 0.25 MG/2 ML VIAL (PULMICORT) NEB SCH ×2 (06:59→19:55)
[2023-06-07] MEDS: SODIUM CHLOR 7% 4 ML NEB NEB SCH ×2 (06:59→19:55)
[2023-06-07] MEDS: FORMOTEROL 20 MCG/2 ML VIAL INH SCH ×2 (06:59→19:55)
[2023-06-07 07:37] LABS: BUN Creatinine Ratio 32.6 (10-20); Calcium 8.8 mg/dl (8.6-10.3); Creatinine Clr Calc Pharmacy 100.6 ml/min; Est GFR (African American) 101.9 ml/min; Est GFR (Non-African American) 87.9 ml/min; Potassium 4.1 mmol/L (3.5-5.1)
--- NOTE | 2023-06-07 09:32 | Pulmonology Progress Note ---
Date of Service June 07, 2023 Assessment & Plan (1) Acute respiratory acidosis: (2) Pneumonia: Laterality: right Lung location: unspecified part of lung Pneumonia type: due to unspecified organism Qualified Code(s): J18.9 - Pneumonia, unspecified organism (3) History of tracheostomy: (4) Chronic respiratory failure: Plan Impression: 57 yo M w/ a PMHx of CLL not on any treatment, HTN, HLD obesity, HFrEF, COPD on oxygen, GERD was brought in and intubated for respiratory distress. He was reintubated on 3 occasions and eventually underwent tracheostomy 05/24/2023. His tracheostomy was decannulated 06/05/2023 Recommendations: 1. Hypoxemic/hypercarbic respiratory failure status post tracheostomy for failed attempts at liberation from mechanical ventilation. He is now decannulated and doing well on low-flow oxygen via his nose. Dressing removed from the tracheostomy site. The stoma appears to be healing nicely. There is no drainage. Recommend keeping the dressing off at this point. Discussed with bedside RN. 2. COPD: Continue Perforomist, budesonide, and DuoNebs as needed. Continue pulmonary clearance with guaifenesin and hypertonic saline 3. Continue to increase activity as tolerated out of bed to chair to improve overall strength and minimize atelectasis. 4. No further input from pulmonary perspective at this time. He is stable for discharge from pulmonary perspective. Pulmonary to sign off. Please call with questions. Thank you. Admission and Anticipated Discharge Date Admission Date: May 22, 2023 Subjective Patient seen and examined. He was able to get out of bed and walk around with a walker yesterday. He denies any shortness of breath. He continues to require low-flow oxygen which is a chronic issue for him. Review of Systems Review of Systems: All systems reviewed & are unremarkable except as noted in HPI & below Physical Exam Constitutional: WD/WN, vitals as above ENMT: Trach site clean dry and intact. Stoma appears healed. Neck: trachea midline, no thyromegaly Respiratory: normal respiratory effort, lungs clear to auscultation Cardiovascular: RRR, no murmur, no edema Gastrointestinal (Abdomen): normal bowel sounds, soft, nontender, no hepatosplenomegaly Musculoskeletal: Extremities: extremities normal to inspection Skin: no rashes, warm and dry Lymphatic: no cervical lymphadenopathy Results & Data Results & Data Vital Signs (Past 12 Hours) Vital Signs Temp Pulse Pulse Resp BP Pulse Ox O2 Del Method 06/07/23 08:12 80 06/07/23 07:50 36.5 C 87 19 107/66 91 Nasal Cannula 06/07/23 07:00 84 18 91 Nasal Cannula 06/07/23 03:00 36.8 C 80 17 103/63 91 Nasal Cannula 06/06/23 23:01 85 06/06/23 22:36 37.0 C 75 20 103/57 L 93 Nasal Cannula O2 Flow Rate 06/07/23 08:12 06/07/23 07:50 2 06/07/23 07:00 3 06/07/23 03:00 3 06/06/23 23:01 06/06/23 22:36 3 PG Care Time/CCT Total # of Minutes Spent Total Time Spent with Patient: Total time spent is greater than 50% in coordination of care (as documented) at patient's floor/unit and/or counseling patient: Coding Level of Care Code 65388 SUB INP/OBS CARE 2/35MIN Diagnoses Acute respiratory acidosis J96.02 Pneumonia J18.9 Laterality: right Lung location: unspecified part of lung Pneumonia type: due to unspecified organism History of tracheostomy Z98.890 Chronic respiratory failure J96.10
[2023-06-07] MEDS: CYANOCOBALAMIN (B-12) 500 MCG TABLET PO SCH (09:49)
[2023-06-07] MEDS: METHYLCELLULOSE POWDER 454 GM JAR PO SCH (09:50)
[2023-06-07] MEDS: DOCUSATE SODIUM/SENNA 50/8.6MG TAB PO SCH (09:50)
[2023-06-07] MEDS: FUROSEMIDE 40 MG/4 ML VIAL IV SCH (09:52)
[2023-06-07] MEDS: FOLIC ACID 1 MG TAB PO SCH (10:24)
[2023-06-07 13:15] LABS: Hematocrit (blood only) 21.8 % (42.0-52.0); Hemoglobin 7.1 g/dl (14.0-18.0)
--- NOTE | 2023-06-07 16:01 | Hospitalist Progress Note ---
Date of Service June 07, 2023 Assessment & Plan (1) Acute and chronic respiratory failure: Plan Patient is 57-year-old male with PMH of COPD, chronic hypoxemic respiratory failure requiring 2-3 L NC with exertion and HS, ongoing tobacco use, chronic right-sided heart failure, CLL, selective deficiency of IgA and M and other medical problems listed below who presents with acute respiratory failure requiring intubation. History of multiple admissions for acute respiratory failure in the setting of multifactorial issues including COPD exacerbation, multifocal pneumonia and decompensated heart failure. In 2020, was admitted here and then transferred for [place] for ongoing treatment of MRSA bacteremia in the setting of necrotizing pneumonia, CLL. Was most recently admitted to [facility] in June 2022. with H. influenzae pneumonia. Patient was admitted to ICU for further care. Patient was placed on mechanical ventilation. Patient failed liberation from ventilator for 2 consecutive times. Patient underwent Percutaneous Dilatational Tracheotomy on May 25, 2022. Patient had oozing from the tracheostomy site and underwent Fiberoptic bronchoscopy and local wound care on May 28, 2023. 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 Also had marked splenomegaly, lymphadenopathy and hepatomegaly. Patient failed liberation from ventilator for 2 times and needed to be reintubated. Patient underwent tracheostomy on May 25, 2022. Patient had oozing from the tracheostomy site after the procedure; underwent Fiberoptic bronchoscopy and local wound care on May 28, 2023 Status post 7 days of antibiotics with levofloxacin and Zosyn. Blood culture no growth till date. Off antibiotics. Decannulation 06/05 per Pulm. Pt saturation well on 4 L NC O2. Pt able to phonate. Pt report feeling better. c/w Budesonide and formoterol nebs, c/w hypertonic saline nebs. c/w lasix iv daily --to home po lasix . Monitor Is and Os. Follow blood and sputum culture. CLL Anemia, thrombocytopenia History of CLL; not on treatment. Follows up with oncology as outpatient Hemoglobin of 6.4 on admission; also had complication of tracheostomy site bleeding (see above) Received 6 units of packed RBC so far. Also 2 unit of pooled platelets. Seen by inpatient hematology; recommend vitamin B12 supplement for low vitamin B12. Also, recommend obtaining CT abdomen and pelvis prior to discharge and close follow-up with hematology as outpatient. Quantitative IgG to be sent; if less than 500; plan for infusion of IVIG 400 mg/kg IV infusion every 4 weeks. IVIG 396.8; IVIG given 06/02/23 CTAP sent, follow. Elevated liver enzymes Bilirubin and liver enzymes elevated on May 29 Down trended on subsequent lab work on May 30 Discussed with meat seafood associate regarding the elevated liver enzymes; as per meat seafood associate; the likely cause for it is the tube feeds which can cause gallbladder to be contracted. Liver USG- no hepatic abnormality. Gallbladder sludge with chronically prominent gallbladder wall. Improving, Continue to monitor LFT as OP Acute kidney injury: Likely secondary to sepsis. Resolved. Chronic right sided heart failure : Home lasix course is 80mg BID, continue. Hyperkalemia : Improved, continue to monitor daily. DVT Ppx: SCDs Code status: FULL PCP: Reva Dispo: PT OT [employer] ordered on board. CM assisting w/ placement. likely marquez. Admission and Anticipated Discharge Date Admission Date: May 22, 2023 Subjective Patient was seen and examined at bedside. Patient was sitting up in bed, on 2 L oxygen via NC, NAD Patient denies any new acute events overnight, feels improving, reports improving cough. Pt w/ fair appetite per RN. Moving BM okay. Pt reports tired today. Physical Exam Physical Exam: Constitutional: Awake, comfortable. On 2 L O2 via NC. ENT; clean dressing ant neck; no bleeding Respiratory: Bilateral crackles Cardiovascular: RRR, no murmur, no edema Vessels: no JVD or carotid bruit Chest: normal inspection of chest Abdomen: Soft, Musculoskeletal: no cyanosis or clubbing, extremities Skin: no rashes, warm and dry normal turgor Neurologic: Awake, able to follow simple commands. Results & Data Results & Data Vital Signs (Past 12 Hours) Vital Signs Temp Pulse Pulse Resp BP Pulse Ox O2 Del Method 06/07/23 15:17 91 H 06/07/23 10:57 36.5 C 83 20 97/58 L 91 Nasal Cannula 06/07/23 08:12 80 06/07/23 07:50 36.5 C 87 19 107/66 91 Nasal Cannula 06/07/23 07:00 84 18 91 Nasal Cannula O2 Flow Rate 06/07/23 15:17 06/07/23 10:57 2 06/07/23 08:12 06/07/23 07:50 2 06/07/23 07:00 3
[2023-06-07] MEDS ORDERED: OPTIRAY 320 500ml IV ONE (16:30)
--- NOTE | 2023-06-07 16:56 | CT Scan Report ---
ABDOMEN AND PELVIS CT WITH IV CONTRAST CT DOSE: 1376.47 mGy.cm HISTORY: ro metastatic disease; assess LAD and splenomegaly. TECHNIQUE: Multiaxial CT images of the abdomen and pelvis were performed following the use of intrave nous contrast. A dose lowering technique was utilized adhering to the principles of ALARA. COMPARISON STUDY: Chest CT 05/22/2023. Abdominal ultrasound 05/30/2023. FINDINGS: Partially visualized 2.5 cm irregular density within the left lower lobe. This is similar t o the prior chest CT. There are few tree-in-bud nodular opacities within the base of the left lower l obe. No pneumoperitoneum. No pneumatosis. No suspicious lytic or blastic osseous lesions. Tiny fat-co ntaining umbilical hernia. Mild body wall edema is noted. Mild circumferential thickening of the dist al esophagus. This may represent a mild esophagitis. The liver, adrenal glands, pancreas, kidneys are within normal limits. No hydronephrosis. Calcified plaque within the normal caliber abdominal aorta. No pelvic free fluid. Mild bladder wall thickening is likely due to underdistention. Colonic diverti culosis. No evidence for acute diverticulitis. No bowel wall thickening or obstruction. Prior appende ctomy. Splenomegaly is again noted with the spleen measuring 19.5 cm in length. The splenic vein is d istended but patent. There is moderate gallbladder wall thickening/edema. Mild gastrohepatic and buzz portal lymphadenopathy is noted. This is stable to slightly improved compared to the prior chest CT. A dominant gastrohepatic lymph node measures 9 mm in short axis diameter, previously measuring 11 mm. A dominant portacaval lymph node measures 13 mm in short axis diameter. Multiple subcentimeter retro peritoneal, pelvic, and inguinal lymph nodes do not meet CT criteria for pathologic involvement. Francine nant pelvic sidewall lymph nodes measure up to 8 mm in short axis diameter. IMPRESSION: 1. Splenomegaly measuring 19.5 cm in length. This is likely similar to the prior chest CT. 2. Moderate gallbladder wall thickening/edema. This is nonspecific and could represent underlying hep atic disease, a diffuse edematous state, or possibly a cholecystitis. Clinical correlation recommende d. 3. Mild upper abdominal lymphadenopathy is stable to slightly improved compared to the prior chest CT . 4. Multiple additional retroperitoneal and pelvic lymph nodes measure subcentimeter in short axis lori meter and therefore do not meet CT criteria for pathologic involvement. 5. Mild thickening of the distal esophagus suggestive of esophagitis. 6. A 2.5 cm irregular density within the left lower lobe. This is partially imaged but appears simila r to the prior chest CT. This favors an infectious/inflammatory process given the surrounding tree-in -bud nodular opacities. Attention at follow-up recommended. 7. Additional findings as described above. ACT 112: Negative or not required by law. Electronically signed by: Roby Lane M.D. 06/07/2023 4:54 PM
[2023-06-07] MEDS: ACETAMINOPHEN SUSP 325 MG/10.15 ML UDC OG PRN (19:28)
[2023-06-07] MEDS: FUROSEMIDE 80 MG TAB PO SCH (22:16)
[2023-06-08 06:47] LABS: Hematocrit (blood only) 22.1 % (42.0-52.0); Mean Corpuscular Hemoglobin 30.6 pg (25.0-34.0); Mean Corpuscular Hgb Conc 31.7 g/dL (32.0-36.0); Mean Corpuscular Volume 96.5 fL (80.0-100.0); Mean Platelet Volume 12.4 fL (9.4-12.4); Nucleated RBC # (auto) 0.02 K/uL (0.00-0.12); Nucleated RBC % (auto) 0.1 %; Platelet Count 98 K/uL (130-400); RDW Standard Deviation 56.4 fL (36.4-46.3); Red Blood Count 2.29 M/uL (4.70-6.10); White Blood Count 34.53 K/ul (4.8-10.8)
[2023-06-08] MEDS: SODIUM CHLOR 7% 4 ML NEB NEB SCH ×2 (07:11→19:58)
[2023-06-08] MEDS: FORMOTEROL 20 MCG/2 ML VIAL INH SCH ×2 (07:11→19:58)
[2023-06-08] MEDS: BUDESONIDE 0.25 MG/2 ML VIAL (PULMICORT) NEB SCH ×2 (07:12→19:58)
[2023-06-08 07:25] LABS: BUN Creatinine Ratio 29.3 (10-20); Calcium 8.8 mg/dl (8.6-10.3); Creatinine Clr Calc Pharmacy 77.7 ml/min; Est GFR (African American) 74.5 ml/min; Est GFR (Non-African American) 64.3 ml/min; Magnesium 1.9 mg/dl (1.7-2.4); Phosphorus 4.2 mg/dl (2.5-4.9); Potassium 3.9 mmol/L (3.5-5.1)
[2023-06-08] MEDS: CYANOCOBALAMIN (B-12) 500 MCG TABLET PO SCH (08:29)
[2023-06-08] MEDS: FOLIC ACID 1 MG TAB PO SCH (08:29)
[2023-06-08] MEDS: DOCUSATE SODIUM/SENNA 50/8.6MG TAB PO SCH (08:34)
[2023-06-08] MEDS: FUROSEMIDE 80 MG TAB PO SCH ×2 (08:35→17:46)
[2023-06-08] MEDS: METHYLCELLULOSE POWDER 454 GM JAR PO SCH (08:37)
--- NOTE | 2023-06-08 10:57 | Hospitalist Progress Note ---
Date of Service June 08, 2023 Assessment & Plan (1) Acute and chronic respiratory failure: Plan Patient is 57-year-old male with PMH of COPD, chronic hypoxemic respiratory failure requiring 2-3 L NC with exertion and HS, ongoing tobacco use, chronic right-sided heart failure, CLL, selective deficiency of IgA and M and other medical problems listed below who presents with acute respiratory failure requiring intubation. History of multiple admissions for acute respiratory failure in the setting of multifactorial issues including COPD exacerbation, multifocal pneumonia and decompensated heart failure. In 2020, was admitted here and then transferred for [place] for ongoing treatment of MRSA bacteremia in the setting of necrotizing pneumonia, CLL. Was most recently admitted to [facility] in June 2022. with H. influenzae pneumonia. Patient was admitted to ICU for further care. Patient was placed on mechanical ventilation. Patient failed liberation from ventilator for 2 consecutive times. Patient underwent Percutaneous Dilatational Tracheotomy on May 25, 2022. Patient had oozing from the tracheostomy site and underwent Fiberoptic bronchoscopy and local wound care on May 28, 2023. 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 Also had marked splenomegaly, lymphadenopathy and hepatomegaly. Patient failed liberation from ventilator for 2 times and needed to be reintubated. Status post tracheostomy on May 25, 2022. Patient had oozing from the tracheostomy site after the procedure; underwent Fiberoptic bronchoscopy and local wound care on May 28, 2023 Status post 7 days of antibiotics with levofloxacin and Zosyn. Blood culture no growth till date. Off antibiotics now Decannulation 06/05 per Pulm. Pt saturation well on 4 L NC O2. Pt able to phonate. c/w Budesonide and formoterol nebs, c/w hypertonic saline nebs. c/w lasix iv daily --to home po lasix . Repeat blood cultures have been negative and sputum culture showing normal jennifer No signs and or symptoms of infection Remains medically stable CLL Anemia, thrombocytopenia-due to CLL History of CLL; not on treatment. Follows up with oncology as outpatient Hemoglobin of 6.4 on admission; also had complication of tracheostomy site bleeding (see above) Received 7 units of packed RBC so far. Also 2 unit of pooled platelets. Seen by inpatient hematology; recommend vitamin B12 supplement for low vitamin B12. Quantitative IgG to be sent; if less than 500; plan for infusion of IVIG 400 mg/kg IV infusion every 4 weeks. IVIG 396.8; IVIG given 06/02/23 CT of the abdomen pelvis showed: Evidence of CLL as depicted in impression:1. Splenomegaly measuring 19.5 cm in length. This is likely similar to the prior chest CT. 2. Moderate gallbladder wall thickening/edema. This is nonspecific and could represent underlying hepatic disease, a diffuse edematous state, or possibly a cholecystitis. Clinical correlation recommended. 3. Mild upper abdominal lymphadenopathy is stable to slightly improved compared to the prior chest CT. 4. Multiple additional retroperitoneal and pelvic lymph nodes measure subcentimeter in short axis diameter and therefore do not meet CT criteria for pathologic involvement. 5. Mild thickening of the distal esophagus suggestive of esophagitis. 6. A 2.5 cm irregular density within the left lower lobe. This is partially imaged but appears similar to the prior chest CT. This favors an infectious/inflammatory process given the surrounding tree-in-bud nodular opacities. Attention at follow-up recommended. 7. Additional findings as described in the main report Hemoglobin remains stable at 7.0-will repeat CBC tomorrow if the hemoglobin goes below 7 will give more transfusion Elevated liver enzymes Bilirubin and liver enzymes elevated on May 29 Down trended on subsequent lab work on May 30 Discussed with hardware installer regarding the elevated liver enzymes; as per hardware installer; the likely cause for it is the tube feeds which can cause gallbladder to be contracted. Liver USG- no hepatic abnormality. Gallbladder sludge with chronically prominen t gallbladder wall. Improving, Continue to monitor No signs and or symptoms of acute cholecystitis LFT as OP Acute kidney injury: Likely secondary to sepsis. Resolved. Chronic right sided heart failure : Home lasix course is 80mg BID, continue. Hyperkalemia : Improved, continue to monitor daily. DVT Ppx: SCDs Code status: FULL PCP: Reva Dispo: PT OT [employer] ordered on board. CM assisting w/ placement. likely marquez. Awaiting placement Admission and Anticipated Discharge Date Admission Date: May 22, 2023 Subjective 06/08/2023 Patient was seen and examined in telemetry unit He has been out of bed on a chair without any acute distress and/or symptoms Has been feeling better since admission and denies any significant symptoms today Complains to have generally weak and lethargic Review of Systems Review of Systems: All systems reviewed and are unremarkable except as noted below Neurologic: Remains generally weak but no focal neurodeficit Physical Exam Physical Exam: Sitting on a chair without any acute distress Constitutional: well developed, well nourished, + ill appearing and + obese Eyes: PERRL, conjunctivae normal, anicteric sclerae ENMT: external ear and nose normal, oropharynx normal Neck: trachea midline, no thyromegaly Respiratory: no respiratory distress Auscultation: + diminished lung sounds and + crackles (Minimal crackles at the bases) Cardiovascular: Rate/Rhythm: regular rate and regular rhythm; not tachycardic Heart Sounds: normal S1 and normal S2; no murmur Extremities: no edema Gastrointestinal (Abdomen): Inspection/Auscultation: normal bowel sounds; abdomen not distended Percussion/Palpation: abdomen soft; abdomen nontender Musculoskeletal: No acute arthritis involving any joint Neurologic: normal touch/pain/proprioception and moves all extremities; no focal motor deficits Psychiatric: A+Ox3, euthymic affect Lymphatic: no cervical or axillary lymphadenopathy Results & Data Results & Data Vital Signs (Past 12 Hours) Vital Signs Temp Pulse Pulse Resp BP Pulse Ox O2 Del Method 06/08/23 10:44 36.6 C 89 18 112/64 94 Nasal Cannula 06/08/23 07:43 87 06/08/23 07:36 37.1 C 96 H 20 99/56 L 94 Nasal Cannula 06/08/23 07:13 98 H 20 95 Nasal Cannula 06/08/23 03:46 96 H 20 94 Nasal Cannula 06/08/23 03:21 37.2 C 105 H 20 101/62 89 L Nasal Cannula O2 Flow Rate 06/08/23 10:44 5 06/08/23 07:43 06/08/23 07:36 4 06/08/23 07:13 6 06/08/23 03:46 6 06/08/23 03:21 5 Laboratory Results Short CBC 06/07/23 06/08/23 Range/Units 12:49 06:16 WBC 34.53 H* (4.8-10.8) K/ul Hgb 7.1 L 7.0 L (14.0-18.0) g/dl Hct 21.8 L 22.1 L (42.0-52.0) % Plt Count 98 L (130-400) K/uL BMP 06/08/23 06:16 Sodium 137 Potassium 3.9 Chloride 96 L Carbon Dioxide 36 H BUN 36 H Creatinine 1.23 Glucose 123 H Calcium 8.8 Medications Administered Current Inpatient Medications Acetaminophen (Acetaminophen Susp 325 Mg/10.15 Ml Udc) 650 mg OG Q6H PRN PRN Reason: Pain or Fever Stop: 06/30/23 22:41 Last Admin: 06/07/23 19:28 Dose: 650 mg Albuterol (Albut/Ipratrop 3mg/0.5mg Neb 3 Ml Vial) 3 ml NEB Q4R PRN; Protocol PRN Reason: Wheezing Stop: 06/29/23 14:59 Budesonide (Budesonide 0.25 Mg/2 Ml Vial (Pulmicort)) 0.5 mg NEB BIDR [facility] Stop: 06/29/23 18:59 Last Admin: 06/08/23 07:12 Dose: 0.5 mg Cyanocobalamin (Cyanocobalamin (B-12) 500 Mcg Tablet) 1,000 mcg PO QAM [facility] Stop: 06/30/23 12:29 Last Admin: 06/08/23 08:29 Dose: 1,000 mcg Folic Acid (Folic Acid 1 Mg Tab) 1 mg PO QAM [facility] Stop: 07/07/23 08:59 Last Admin: 06/08/23 08:29 Dose: 1 mg Formoterol Fumarate (Formoterol 20 Mcg/2 Ml Vial) 20 mcg INH BIDR [facility]; Protocol Stop: 06/21/23 18:59 Last Admin: 06/08/23 07:11 Dose: 20 mcg Furosemide (Furosemide 80 Mg Tab) 80 mg PO BID17 [facility] Stop: 07/07/23 20:59 Last Admin: 06/08/23 08:35 Dose: 80 mg Guaifenesin (Guaifenesin Sugar Free 200 Mg/10 Ml Udc) 200 mg PO Q6H PRN PRN Reason: Cough Stop: 06/30/23 11:23 Last Admin: 06/01/23 07:15 Dose: 200 mg Methylcellulose (Methylcellulose Powder 454 Gm Jar) 1 gm PO DAILY [facility] Stop: 06/28/23 11:59 Last Admin: 06/08/23 08:37 Dose: Not Given Ondansetron HCl (Ondansetron Inj 2 Mg/Ml 2 Ml Vial) 4 mg IV Q6H PRN PRN Reason: Nausea And Vomiting Stop: 06/28/23 21:23 Last Admin: 05/31/23 07:44 Dose: 4 mg Senna/Docusate Sodium (Docusate Sodium/Senna 50/8.6mg Tab) 1 tab PO QAM [facility] Stop: 06/28/23 11:59 Last Admin: 06/08/23 08:34 Dose: 1 tab Sodium Chloride (Sodium Chlor 7% 4 Ml Neb) 4 ml NEB BIDR [facility] Stop: 06/30/23 18:59 Last Admin: 06/08/23 07:11 Dose: 4 ml
[2023-06-09 06:37] LABS: Calcium 8.5 mg/dl (8.6-10.3); Magnesium 1.9 mg/dl (1.7-2.4); Potassium 3.5 mmol/L (3.5-5.1)
[2023-06-09 06:43] LABS: BUN Creatinine Ratio 35.3 (10-20)
[2023-06-09] MEDS: BUDESONIDE 0.25 MG/2 ML VIAL (PULMICORT) NEB SCH ×2 (07:05→20:14)
[2023-06-09] MEDS: SODIUM CHLOR 7% 4 ML NEB NEB SCH ×2 (07:05→20:14)
[2023-06-09] MEDS: FORMOTEROL 20 MCG/2 ML VIAL INH SCH ×2 (07:06→20:13)
[2023-06-09 07:37] LABS: Basophils # (auto) 0.06 K/uL (0.00-0.20); Basophils % (auto) 0.2 %; Eosinophils # (auto) 0.04 K/uL (0.00-0.50); Eosinophils % (auto) 0.1 %; Hematocrit (blood only) 21.3 % (42.0-52.0); Hemoglobin 6.5 g/dl (14.0-18.0); Immature Granulocytes # (auto) 0.05 K/uL (0.01-0.20); Immature Granulocytes % (auto) 0.2 %; Lymphocytes # (auto) 27.62 K/uL (1.20-3.40); Lymphocytes % (auto) 93.3 %; Mean Corpuscular Hemoglobin 30.2 pg (25.0-34.0); Mean Corpuscular Hgb Conc 30.5 g/dL (32.0-36.0); Mean Corpuscular Volume 99.1 fL (80.0-100.0); Mean Platelet Volume 12.3 fL (9.4-12.4); Monocytes # (auto) 0.97 K/uL (0.11-0.59); Monocytes % (auto) 3.3 %; Neutrophils # (auto) 0.86 K/uL (1.40-6.50); Neutrophils % (auto) 2.9 %; Nucleated RBC # (auto) 0.02 K/uL (0.00-0.12); Nucleated RBC % (auto) 0.1 %; Platelet Count 93 K/uL (130-400); RDW Coefficient of Variation 16.2 % (11.5-14.5); RDW Standard Deviation 58.4 fL (36.4-46.3); Red Blood Count 2.15 M/uL (4.70-6.10)
[2023-06-09] MEDS ORDERED: SODIUM CHLORIDE 0.9% 250 ML IV PRN ×2 (07:41→10:53)
[2023-06-09 07:44] LABS: RBC Morphology Unremarkable
[2023-06-09] MEDS: METHYLCELLULOSE POWDER 454 GM JAR PO SCH (08:25)
[2023-06-09] MEDS: FOLIC ACID 1 MG TAB PO SCH (08:25)
[2023-06-09] MEDS: DOCUSATE SODIUM/SENNA 50/8.6MG TAB PO SCH (08:25)
[2023-06-09] MEDS: FUROSEMIDE 80 MG TAB PO SCH ×2 (08:25→17:26)
[2023-06-09] MEDS: CYANOCOBALAMIN (B-12) 500 MCG TABLET PO SCH (08:25)
--- NOTE | 2023-06-09 13:17 | Hospitalist Progress Note ---
Date of Service June 09, 2023 Assessment & Plan (1) Acute and chronic respiratory failure: Plan Patient is 57-year-old male with PMH of COPD, chronic hypoxemic respiratory failure requiring 2-3 L NC with exertion and HS, ongoing tobacco use, chronic right-sided heart failure, CLL, selective deficiency of IgA and M and other medical problems listed below who presents with acute respiratory failure requiring intubation. History of multiple admissions for acute respiratory failure in the setting of multifactorial issues including COPD exacerbation, multifocal pneumonia and decompensated heart failure. In 2020, was admitted here and then transferred for [place] for ongoing treatment of MRSA bacteremia in the setting of necrotizing pneumonia, CLL. Was most recently admitted to [facility] in June 2022. with H. influenzae pneumonia. Patient was admitted to ICU for further care. Patient was placed on mechanical ventilation. Patient failed liberation from ventilator for 2 consecutive times. Patient underwent Percutaneous Dilatational Tracheotomy on May 25, 2022. Patient had oozing from the tracheostomy site and underwent Fiberoptic bronchoscopy and local wound care on May 28, 2023. 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 Also had marked splenomegaly, lymphadenopathy and hepatomegaly. Patient failed liberation from ventilator for 2 times and needed to be reintubated. Status post tracheostomy on May 25, 2022.: No signs of infection at the tracheostomy site 06/09/2023 Patient had oozing from the tracheostomy site after the procedure; underwent Fiberoptic bronchoscopy and local wound care on May 28, 2023 Status post 7 days of antibiotics with levofloxacin and Zosyn. Blood culture no growth till date. Off antibiotics now Decannulation 06/05 per Pulm. Pt saturation well on 4 L NC O2. Pt able to phonate. c/w Budesonide and formoterol nebs, c/w hypertonic saline nebs. c/w lasix iv daily --to home po lasix . Repeat blood cultures have been negative and sputum culture showing normal jennifer No signs and or symptoms of infection Remains medically stable without any signs and or symptoms of infection Requiring 2 L of oxygen via nasal cannula to maintain saturation CLL Anemia, thrombocytopenia-due to CLL History of CLL; not on treatment. Follows up with oncology as outpatient Hemoglobin of 6.4 on admission; also had complication of tracheostomy site bleeding (see above) Received 7 units of packed RBC so far. Also 2 unit of pooled platelets. Seen by inpatient hematology; recommend vitamin B12 supplement for low vitamin B12. Quantitative IgG to be sent; if less than 500; plan for infusion of IVIG 400 mg/kg IV infusion every 4 weeks. IVIG 396.8; IVIG given 06/02/23 CT of the abdomen pelvis showed: Evidence of CLL as depicted in impression:1. Splenomegaly measuring 19.5 cm in length. This is likely similar to the prior chest CT. 2. Moderate gallbladder wall thickening/edema. This is nonspecific and could represent underlying hepatic disease, a diffuse edematous state, or possibly a cholecystitis. Clinical correlation recommended. 3. Mild upper abdominal lymphadenopathy is stable to slightly improved compared to the prior chest CT. 4. Multiple additional retroperitoneal and pelvic lymph nodes measure subcentimeter in short axis diameter and therefore do not meet CT criteria for pathologic involvement. 5. Mild thickening of the distal esophagus suggestive of esophagitis. 6. A 2.5 cm irregular density within the left lower lobe. This is partially i devon but appears similar to the prior chest CT. This favors an infectious/inflammatory process given the surrounding tree-in-bud nodular opacities. Attention at follow-up recommended. 7. Additional findings as described in the main report Hemoglobin remains stable at 7.0-will repeat CBC tomorrow if the hemoglobin goes below 7 will give more transfusion Hemoglobin is dropped to 6.5-discussed with the oncologist and advised to have 2 units of blood transfusion and start prednisone 100 mg daily for 4 days He may be discharged home with an appointment early next week with a milking worker to start treatment for CLL Patient refused to go to rehab so likely to be sent home tomorrow if remains stable Elevated liver enzymes Bilirubin and liver enzymes elevated on May 29 Down trended on subsequent lab work on May 30 Discussed with automated weaver regarding the elevated liver enzymes; as per automated weaver; the likely cause for it is the tube feeds which can cause gallbladder to be contracted. Liver USG- no hepatic abnormality. Gallbladder sludge with chronically prominent gallbladder wall. Improving, Continue to monitor No signs and or symptoms of acute cholecystitis LFT as OP Acute kidney injury: Likely secondary to sepsis. Resolved. Chronic right sided heart failure : Home lasix course is 80mg BID, continue. Hyperkalemia : Improved, continue to monitor daily. DVT Ppx: SCDs Code status: FULL PCP: Reva Dispo: PT OT SPOUT LINER ordered on board. CM assisting w/ placement. likely marquez. Awaiting placement Admission and Anticipated Discharge Date Admission Date: May 22, 2023 Subjective 06/08/2023 Patient was seen and examined in telemetry unit He has been out of bed on a chair without any acute distress and/or symptoms Has been feeling better since admission and denies any significant symptoms today Complains to have generally weak and lethargic 06/09/2023 The patient was seen and examined in telemetry unit He remains generally weak and lethargic does not have any other significant symptoms Denies any chest pain, palpitation or shortness of breath at rest No abdominal pain, nausea no vomiting Review of Systems Review of Systems: All systems reviewed and are unremarkable except as noted below Neurologic: Remains generally weak but no focal neurodeficit Physical Exam Physical Exam: Sitting on a chair without any acute distress Constitutional: well developed, well nourished, + ill appearing and + obese Eyes: PERRL, conjunctivae normal, anicteric sclerae ENMT: external ear and nose normal, oropharynx normal Neck: trachea midline, no thyromegaly Respiratory: no respiratory distress Auscultation: + diminished lung sounds and + crackles (Minimal crackles at the bases) Cardiovascular: Rate/Rhythm: regular rate and regular rhythm; not tachycardic Heart Sounds: normal S1 and normal S2; no murmur Extremities: no edema Gastrointestinal (Abdomen): Inspection/Auscultation: normal bowel sounds; abdo men not distended Percussion/Palpation: abdomen soft; abdomen nontender Neurologic: normal touch/pain/proprioception and moves all extremities; no focal motor deficits Psychiatric: A+Ox3, euthymic affect Lymphatic: no cervical or axillary lymphadenopathy Results & Data Results & Data Vital Signs (Past 12 Hours) Vital Signs Temp Pulse Pulse Resp BP BP Pulse Ox 06/09/23 12:35 36.7 C 84 18 118/57 L 98 06/09/23 12:20 36.8 C 87 18 114/54 L 96 06/09/23 12:19 36.8 C 87 18 114/54 L 96 06/09/23 12:02 36.6 C 80 18 99/56 L 96 06/09/23 10:11 90 06/09/23 07:30 36.6 C 95 H 18 107/65 97 06/09/23 07:07 88 18 96 06/09/23 03:00 36.7 C 95 H 19 104/61 95 O2 Del Method O2 Flow Rate 06/09/23 12:35 2 06/09/23 12:20 2 06/09/23 12:19 06/09/23 12:02 2 06/09/23 10:11 06/09/23 07:30 Nasal Cannula 06/09/23 07:07 Nasal Cannula 3 06/09/23 03:00 Nasal Cannula Laboratory Results Short CBC 06/09/23 Range/Units 05:39 WBC 29.60 H (4.8-10.8) K/ul Hgb 6.5 L* (14.0-18.0) g/dl Hct 21.3 L (42.0-52.0) % Plt Count 93 L (130-400) K/uL BMP 06/09/23 05:39 Sodium 139 Potassium 3.5 Chloride 96 L Carbon Dioxide 37 H BUN 41 H Creatinine 1.16 Glucose 123 H Calcium 8.5 L Medications Administered Current Inpatient Medications Acetaminophen (Acetaminophen Susp 325 Mg/10.15 Ml Udc) 650 mg OG Q6H PRN PRN Reason: Pain or Fever Stop: 06/30/23 22:41 Last Admin: 06/07/23 19:28 Dose: 650 mg Albuterol (Albut/Ipratrop 3mg/0.5mg Neb 3 Ml Vial) 3 ml NEB Q4R PRN; Protocol PRN Reason: Wheezing Stop: 06/29/23 14:59 Budesonide (Budesonide 0.25 Mg/2 Ml Vial (Pulmicort)) 0.5 mg NEB BIDR [facility] Stop: 06/29/23 18:59 Last Admin: 06/09/23 07:05 Dose: 0.5 mg Cyanocobalamin (Cyanocobalamin (B-12) 500 Mcg Tablet) 1,000 mcg PO QAM [facility] Stop: 06/30/23 12:29 Last Admin: 06/09/23 08:25 Dose: 1,000 mcg Folic Acid (Folic Acid 1 Mg Tab) 1 mg PO QAM [facility] Stop: 07/07/23 08:59 Last Admin: 06/09/23 08:25 Dose: 1 mg Formoterol Fumarate (Formoterol 20 Mcg/2 Ml Vial) 20 mcg INH BIDR [facility]; Protocol Stop: 06/21/23 18:59 Last Admin: 06/09/23 07:06 Dose: 20 mcg Furosemide (Furosemide 80 Mg Tab) 80 mg PO BID17 [facility] Stop: 07/07/23 20:59 Last Admin: 06/09/23 08:25 Dose: 80 mg Guaifenesin (Guaifenesin Sugar Free 200 Mg/10 Ml Udc) 200 mg PO Q6H PRN PRN Reason: Cough Stop: 06/30/23 11:23 Last Admin: 06/01/23 07:15 Dose: 200 mg Sodium Chloride (Nss) 250 mls @ 15 mls/hr IV .[id number] PRN PRN Reason: For Transfusion Duration Stop: 06/09/23 17:43 Last Admin: 06/09/23 11:28 Dose: 15 mls/hr Sodium Chloride (Nss) 250 mls @ 15 mls/hr IV .[id number] PRN PRN Reason: For Transfusion Duration Stop: 06/09/23 20:53 Methylcellulose (Methylcellulose Powder 454 Gm Jar) 1 gm PO DAILY [facility] Stop: 06/28/23 11:59 Last Admin: 06/09/23 08:25 Dose: Not Given Ondansetron HCl (Ondansetron Inj 2 Mg/Ml 2 Ml Vial) 4 mg IV Q6H PRN PRN Reason: Nausea And Vomiting Stop: 06/28/23 21:23 Last Admin: 05/31/23 07:44 Dose: 4 mg Prednisone (Prednisone 50 Mg Tab) 100 mg PO DAILY [facility] Stop: 07/09/23 10:59 Last Admin: 06/09/23 13:18 Dose: 100 mg Senna/Docusate Sodium (Docusate Sodium/Senna 50/8.6mg Tab) 1 tab PO QAM [facility] Stop: 06/28/23 11:59 Last Admin: 06/09/23 08:25 Dose: Not Given Sodium Chloride (Sodium Chlor 7% 4 Ml Neb) 4 ml NEB BIDR [facility] Stop: 06/30/23 18:59 Last Admin: 06/09/23 07:05 Dose: 4 ml
[2023-06-09] MEDS: predniSONE 50 MG TAB PO SCH (13:18)
[2023-06-09] MEDS ORDERED: POTASSIUM CHLORIDE CRTAB 20 MEQ TABCR PO STA (14:07)
[2023-06-09] MEDS: FUROSEMIDE 40 MG/4 ML VIAL IV ONE ×2 (15:51→15:57)
[2023-06-10] MEDS: FORMOTEROL 20 MCG/2 ML VIAL INH SCH (07:24)
[2023-06-10] MEDS: SODIUM CHLOR 7% 4 ML NEB NEB SCH (07:24)
[2023-06-10] MEDS: BUDESONIDE 0.25 MG/2 ML VIAL (PULMICORT) NEB SCH (07:24)
[2023-06-10 07:35] LABS: BUN Creatinine Ratio 46.9 (10-20); Calcium 8.7 mg/dl (8.6-10.3); Creatinine Clr Calc Pharmacy 95.3 ml/min; Est GFR (African American) 97.4 ml/min; Est GFR (Non-African American) 84.1 ml/min; Potassium 3.9 mmol/L (3.5-5.1)
[2023-06-10] MEDS: METHYLCELLULOSE POWDER 454 GM JAR PO SCH (08:05)
[2023-06-10] MEDS: CYANOCOBALAMIN (B-12) 500 MCG TABLET PO SCH (08:05)
[2023-06-10] MEDS: predniSONE 50 MG TAB PO SCH (08:05)
[2023-06-10] MEDS: FUROSEMIDE 80 MG TAB PO SCH (08:05)
[2023-06-10] MEDS: FOLIC ACID 1 MG TAB PO SCH (08:05)
[2023-06-10] MEDS: DOCUSATE SODIUM/SENNA 50/8.6MG TAB PO SCH (08:05)
[2023-06-10 08:10] LABS: Hematocrit (blood only) 22.5 % (42.0-52.0); Hemoglobin 7.4 g/dl (14.0-18.0); Mean Corpuscular Hemoglobin 30.7 pg (25.0-34.0); Mean Corpuscular Hgb Conc 32.9 g/dL (32.0-36.0); Mean Corpuscular Volume 93.4 fL (80.0-100.0); Mean Platelet Volume 12.3 fL (9.4-12.4); Nucleated RBC # (auto) 0.02 K/uL (0.00-0.12); Nucleated RBC % (auto) 0.1 %; Platelet Count 93 K/uL (130-400); RDW Coefficient of Variation 15.5 % (11.5-14.5); RDW Standard Deviation 52.5 fL (36.4-46.3); Red Blood Count 2.41 M/uL (4.70-6.10); White Blood Count 30.96 K/ul (4.8-10.8)
[2023-06-10 08:11] LABS: Basophils # (auto) 0.02 K/uL (0.00-0.20); Basophils % (auto) 0.1 %; Eosinophils # (auto) 0.01 K/uL (0.00-0.50); Immature Granulocytes # (auto) 0.04 K/uL (0.01-0.20); Immature Granulocytes % (auto) 0.1 %; Lymphocytes # (auto) 28.04 K/uL (1.20-3.40); Lymphocytes % (auto) 90.6 %; Monocytes # (auto) 1.88 K/uL (0.11-0.59); Monocytes % (auto) 6.1 %; Neutrophils # (auto) 0.97 K/uL (1.40-6.50); Neutrophils % (auto) 3.1 %; Polychromasia 1+; Smudge Cells Present
--- NOTE | 2023-06-10 12:16 | Hospitalist Progress Note ---
Date of Service June 10, 2023 Assessment & Plan (1) Acute and chronic respiratory failure: Plan Patient is 57-year-old male with PMH of COPD, chronic hypoxemic respiratory failure requiring 2-3 L NC with exertion and HS, ongoing tobacco use, chronic right-sided heart failure, CLL, selective deficiency of IgA and M and other medical problems listed below who presents with acute respiratory failure requiring intubation. History of multiple admissions for acute respiratory failure in the setting of multifactorial issues including COPD exacerbation, multifocal pneumonia and decompensated heart failure. In 2020, was admitted here and then transferred for [place] for ongoing treatment of MRSA bacteremia in the setting of necrotizing pneumonia, CLL. Was most recently admitted to [facility] in June 2022. with H. influenzae pneumonia. Patient was admitted to ICU for further care. Patient was placed on mechanical ventilation. Patient failed liberation from ventilator for 2 consecutive times. Patient underwent Percutaneous Dilatational Tracheotomy on May 25, 2022. Patient had oozing from the tracheostomy site and underwent Fiberoptic bronchoscopy and local wound care on May 28, 2023. 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 Also had marked splenomegaly, lymphadenopathy and hepatomegaly. Patient failed liberation from ventilator for 2 times and needed to be reintubated. Status post tracheostomy on May 25, 2022.: No signs of infection at the tracheostomy site 06/09/2023 Patient had oozing from the tracheostomy site after the procedure; underwent Fiberoptic bronchoscopy and local wound care on May 28, 2023 Status post 7 days of antibiotics with levofloxacin and Zosyn. Blood culture no growth till date. Off antibiotics now Decannulation 06/05 per Pulm. Pt saturation well on 4 L NC O2. Pt able to phonate. c/w Budesonide and formoterol nebs, c/w hypertonic saline nebs. c/w lasix iv daily --to home po lasix . Repeat blood cultures have been negative and sputum culture showing normal jennifer No signs and or symptoms of infection Remains medically stable without any signs and or symptoms of infection Requiring 2 L of oxygen via nasal cannula to maintain saturation Has been requiring 2 to 3 L to maintain saturation and will be continued He wants to go home today and will have outpatient PT and OT as planned CLL Anemia, thrombocytopenia-due to CLL History of CLL; not on treatment. Follows up with oncology as outpatient Hemoglobin of 6.4 on admission; also had complication of tracheostomy site bleeding (see above) Received 7 units of packed RBC so far. Also 2 unit of pooled platelets. Seen by inpatient hematology; recommend vitamin B12 supplement for low vitamin B12. Quantitative IgG to be sent; if less than 500; plan for infusion of IVIG 400 mg/kg IV infusion every 4 weeks. IVIG 396.8; IVIG given 06/02/23 CT of the abdomen pelvis showed: Evidence of CLL as depicted in impression:1. Splenomegaly measuring 19.5 cm in length. This is likely similar to the prior chest CT. 2. Moderate gallbladder wall thickening/edema. This is nonspecific and could represent underlying hepatic disease, a diffuse edematous state, or possibly a cholecystitis. Clinical correlation recommended. 3. Mild upper abdominal lymphadenopathy is stable to slightly improved compared to the prior chest CT. 4. Multiple additional retroperitoneal and pelvic lymph nodes measure subcentimeter in short axis diameter and therefore do not meet CT criteria for pathologic involvement. 5. Mild thickening of the distal esophagus suggestive of esophagitis. 6. A 2.5 cm irregular density within the left lower lobe. This is partially imaged but appears similar to the prior chest CT. This favors an infectious/inflammatory process given the surrounding tree-in-bud nodular opacities. Attention at follow-up recommended. 7. Additional findings as described in the main report Hemoglobin remains stable at 7.0-will repeat CBC tomorrow if the hemoglobin goes below 7 will give more transfusion Hemoglobin is dropped to 6.5-discussed with the oncologist and advised to have 2 units of blood transfusion and start prednisone 100 mg daily for 4 days He may be discharged home with an appointment early next week with a director of dementia operations to start treatment for CLL Patient refused to go to rehab so likely to be sent home tomorrow if remains stable His hemoglobin is 7.4 today and feels a little bit better with weakness He was strongly advised to keep appointment with the healthcare provider as early as possible next week to have the blood checked and go for any specific treatment for CLL through his director of dementia operations and oncologist Elevated liver enzymes Bilirubin and liver enzymes elevated on May 29 Down trended on subsequent lab work on May 30 Discussed with diesel lube tech regarding the elevated liver enzymes; as per diesel lube tech; the likely cause for it is the tube feeds which can cause gallbladder to be contracted. Liver USG- no hepatic abnormality. Gallbladder sludge with chronically prominent gallbladder wall. Improving, Continue to monitor No signs and or symptoms of acute cholecystitis LFT as OP-LFT seems to be stabilized Acute kidney injury: Likely secondary to sepsis. Resolved. Chronic right sided heart failure : Home lasix course is 80mg BID, continue. Hyperkalemia : Improved, continue to monitor daily. DVT Ppx: SCDs Code status: FULL PCP: Reva Dispo: PT OT LABEL PRINTER ordered on board. CM assisting w/ placement. likely marquez. Awaiting placement-refused to go to rehab Likely to be discharged this afternoon Discussed with the daughter in detail Admission and Anticipated Discharge Date Admission Date: May 22, 2023 Subjective 06/08/2023 Patient was seen and examined in telemetry unit He has been out of bed on a chair without any acute distress and/or symptoms Has been feeling better since admission and denies any significant symptoms today Complains to have generally weak and lethargic 06/09/2023 The patient was seen and examined in telemetry unit He remains generally weak and lethargic does not have any other significant symptoms Denies any chest pain, palpitation or shortness of breath at rest No abdominal pain, nausea no vomiting 06/10/2023 The patient was seen and examined in telemetry unit He has been much better today and the weakness seems to be improved following blood transfusion He wants to go home and does not want to go to rehab He is mentally and physically ready to be discharged He was warned against falling and his blood counts will go down and may require blood transfusion sooner He is aware about the situation Review of Systems Review of Systems: All systems reviewed and are unremarkable except as noted below Neurologic: Remains generally weak but no focal neurodeficit Physical Exam Physical Exam: Sitting on a chair without any acute distress Constitutional: well developed, well nourished, + ill appearing and + obese Eyes: PERRL, conjunctivae normal, anicteric sclerae ENMT: external ear and nose normal, oropharynx normal Neck: trachea midline, no thyromegaly Respiratory: no respiratory distress Auscultation: + diminished lung sounds and + crackles (Minimal crackles at the bases) Cardiovascular: Rate/Rhythm: regular rate and regular rhythm; not tachycardic Heart Sounds: normal S1 and normal S2; no murmur Extremities: no edema Gastrointestinal (Abdomen): Inspection/Auscultation: normal bowel sounds; abdomen not distended Percussion/Palpation: abdomen soft; abdomen nontender Neurologic: normal touch/pain/proprioception and moves all extremities; no focal motor deficits Psychiatric: A+Ox3, euthymic affect Lymphatic: no cervical or axillary lymphadenopathy Results & Data Results & Data Vital Signs (Past 12 Hours) Vital Signs Temp Pulse Pulse Resp BP Pulse Ox O2 Del Method 06/10/23 11:00 36.6 C 87 20 111/57 L 93 Nasal Cannula 06/10/23 07:46 86 06/10/23 07:46 Nasal Cannula 06/10/23 07:25 88 18 94 Nasal Cannula 06/10/23 06:00 36.5 C 72 22 110/65 92 Nasal Cannula 06/10/23 03:00 36.6 C 68 19 108/61 90 Nasal Cannula O2 Flow Rate 06/10/23 11:00 3 06/10/23 07:46 06/10/23 07:46 3 06/10/23 07:25 3 06/10/23 06:00 3 06/10/23 03:00 Laboratory Results Short CBC 06/10/23 Range/Units 06:35 WBC 30.96 H* (4.8-10.8) K/ul Hgb 7.4 L (14.0-18.0) g/dl Hct 22.5 L (42.0-52.0) % Plt Count 93 L (130-400) K/uL BMP 06/10/23 06:35 Sodium 138 Potassium 3.9 Chloride 97 L Carbon Dioxide 34 H BUN 46 H Creatinine 0.98 Glucose 125 H Calcium 8.7 Medications Administered Current Inpatient Medications Acetaminophen (Acetaminophen Susp 325 Mg/10.15 Ml Udc) 650 mg OG Q6H PRN PRN Reason: Pain or Fever Stop: 06/30/23 22:41 Last Admin: 06/07/23 19:28 Dose: 650 mg Albuterol (Albut/Ipratrop 3mg/0.5mg Neb 3 Ml Vial) 3 ml NEB Q4R PRN; Protocol PRN Reason: Wheezing Stop: 06/29/23 14:59 Budesonide (Budesonide 0.5 Mg/2 Ml Vial (Pulmicort)) 0.5 mg NEB BIDR [facility] Stop: 07/10/23 18:59 Cyanocobalamin (Cyanocobalamin (B-12) 500 Mcg Tablet) 1,000 mcg PO QAM [facility] Stop: 06/30/23 12:29 Last Admin: 06/10/23 08:05 Dose: 1,000 mcg Folic Acid (Folic Acid 1 Mg Tab) 1 mg PO QAM [facility] Stop: 07/07/23 08:59 Last Admin: 06/10/23 08:05 Dose: 1 mg Formoterol Fumarate (Formoterol 20 Mcg/2 Ml Vial) 20 mcg INH BIDR [facility]; Protocol Stop: 06/21/23 18:59 Last Admin: 06/10/23 07:24 Dose: 20 mcg Furosemide (Furosemide 80 Mg Tab) 80 mg PO BID17 [facility] Stop: 07/07/23 20:59 Last Admin: 06/10/23 08:05 Dose: 80 mg Guaifenesin (Guaifenesin Sugar Free 200 Mg/10 Ml Udc) 200 mg PO Q6H PRN PRN Reason: Cough Stop: 06/30/23 11:23 Last Admin: 06/01/23 07:15 Dose: 200 mg Methylcellulose (Methylcellulose Powder 454 Gm Jar) 1 gm PO DAILY [facility] Stop: 06/28/23 11:59 Last Admin: 06/10/23 08:05 Dose: Not Given Ondansetron HCl (Ondansetron Inj 2 Mg/Ml 2 Ml Vial) 4 mg IV Q6H PRN PRN Reason: Nausea And Vomiting Stop: 06/28/23 21:23 Last Admin: 05/31/23 07:44 Dose: 4 mg Prednisone (Prednisone 50 Mg Tab) 100 mg PO DAILY [facility] Stop: 07/09/23 10:59 Last Admin: 06/10/23 08:05 Dose: 100 mg Senna/Docusate Sodium (Docusate Sodium/Senna 50/8.6mg Tab) [facility] [place] Stop: 06/28/23 11:59 Last Admin: 06/10/23 08:05 Dose: Not Given Sodium Chloride (Sodium Chlor 7% 4 Ml Neb) 4 ml NEB BIDR [facility] Stop: 06/30/23 18:59 Last Admin: 06/10/23 07:24 Dose: 4 ml
[2023-06-10] MEDS ORDERED: BUDESONIDE 0.5 MG/2 ML VIAL (PULMICORT) NEB SCH (19:00)
--- NOTE | 2023-06-11 07:14 | Discharge Summary ---
Date of Service June 10, 2023 Admission HPI Per Admitting Provider This is a medically complex 57-year-old male with PMH of COPD, chronic hypoxemic respiratory failure requiring 2-3 L NC with exertion and HS, ongoing tobacco use, chronic right-sided heart failure, CLL, selective deficiency of IgA and M and other medical problems listed below who presents with acute respiratory failure requiring intubation prior to arrival. History of multiple admissions for acute respiratory failure in the setting of multifactorial issues including COPD exacerbation, multifocal pneumonia and decompensated heart failure. In 2020, was admitted here and then transferred for [place] for treatment of MRSA bacteremia in the setting of necrotizing pneumonia. Was most recently admitted to [facility] in June 2022. with H. influenzae pneumonia. History obtained from chart review and discussion on the phone with daughter, Sonal as patient is intubated. Lives alone and visiting for the holiday. For the last few days, patient has not been feeling well and developed cough and congestion. + sick grandchild visiting. Earlier today, family turned up oxygen to 4-5L due to increased shortness of breath called EMS after he started to complain of lightheadedness. EMS was called and intubated patient in the field due to severe respiratory distress and syncopal episode. Lives alone. At baseline, ambulates independently but is oxygen dependent. Still smokes cigarettes and drinks beer but has reportedly significantly decreased intake to 1-2x/month. Admission Exam Per Admitting Provider Physical Exam: General Appearance: WD/WN, vitals as above, intubated, obese Head: normocephalic, atraumatic Eyes: normal inspection, PERRL, conjunctivae normal, anicteric sclerae ENT: external ear and nose normal, oropharynx normal Neck: normal visual inspection, trachea midline Respiratory: diminished lung sounds throughout, + R sided crackles and rales Cardiovascular: tachycardic rate, regular rhythm, no BLE edema Chest: normal inspection of chest Abdomen/GI: normal bowel sounds, soft, nontender, no hepatosplenomegaly Extremities/Musculoskeletal: no cyanosis or clubbing, extremities motor strength 5/5 : Ramon Neurologic/psych: intubated Skin: no rashes, normal color, warm/dry Principal Diagnosis Acute on chronic respiratory failure, CLL requiring frequent blood transfusion, generalized weakness Discharge Exam Sitting on a chair without any acute distress Constitutional well developed, well nourished, + ill appearing and + obese Eyes PERRL, conjunctivae normal, anicteric sclerae ENMT external ear and nose normal, oropharynx normal Neck trachea midline, no thyromegaly Respiratory no respiratory distress Auscultation: + diminished lung sounds and + crackles (Minimal crackles at the bases) Cardiovascular Rate/Rhythm: regular rate and regular rhythm; not tachycardic Heart Sounds: normal S1 and normal S2; no murmur Extremities: no edema Gastrointestinal (Abdomen) Inspection/Auscultation: normal bowel sounds; abdomen not distended Percussion/Palpation: abdomen soft; abdomen nontender Neurologic normal touch/pain/proprioception and moves all extremities; no focal motor deficits Psychiatric A+Ox3, euthymic affect Lymphatic no cervical or axillary lymphadenopathy Discharge Data Allergies Allergy/AdvReac Type Severity Reaction Status Date / Time Penicillins Allergy Intermediate Hives Verified 05/24/23 07:31 bee venom protein (honey bee) Allergy Unknown ON [facility] MED Verified 05/24/23 07:31 LIST Consultations 05/22/23 16:47 ED Decision to Admit Stat 05/22/23 16:48 Consult Sales Effectiveness Manager Stat 05/22/23 20:11 Consult Sales Effectiveness Manager Routine 05/30/23 11:32 Consult Oncology Routine Ordered Studies 05/22/23 17:02 CT head/brain wo con Stat 05/22/23 17:35 CT chest diagnostic wo con Stat 05/25/23 17:15 CTA neck with con [CT angio neck with con] Stat 05/30/23 07:00 US liver Routine 06/07/23 16:01 CT Abd and Pelvis [CT abd pelvis IV con only] Routine Hospital Course (1) Acute and chronic respiratory failure: Plan Patient is 57-year-old male with PMH of COPD, chronic hypoxemic respiratory failure requiring 2-3 L NC with exertion and HS, ongoing tobacco use, chronic right-sided heart failure, CLL, selective deficiency of IgA and M and other medical problems listed below who presents with acute respiratory failure requiring intubation. History of multiple admissions for acute respiratory failure in the setting of multifactorial issues including COPD exacerbation, multifocal pneumonia and decompensated heart failure. In 2020, was admitted here and then transferred for [place] for ongoing treatment of MRSA bacteremia in the setting of necrotizing pneumonia, CLL. Was most recently admitted to [facility] in June 2022. with H. influenzae pneumonia. Patient was admitted to ICU for further care. Patient was placed on mechanical ventilation. Patient failed liberation from ventilator for 2 consecutive times. Patient underwent Percutaneous Dilatational Tracheotomy on May 25, 2022. Patient had oozing from the tracheostomy site and underwent Fiberoptic bronchoscopy and local wound care on May 28, 2023. 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 Also had marked splenomegaly, lymphadenopathy and hepatomegaly. Patient failed liberation from ventilator for 2 times and needed to be reintubated. Status post tracheostomy on May 25, 2022.: No signs of infection at the tracheostomy site 06/09/2023 Patient had oozing from the tracheostomy site after the procedure; underwent Fiberoptic bronchoscopy and local wound care on May 28, 2023 Status post 7 days of antibiotics with levofloxacin and Zosyn. Blood culture no growth till date. Off antibiotics now Decannulation 06/05 per Pulm. Pt saturation well on 4 L NC O2. Pt able to phonate. c/w Budesonide and formoterol nebs, c/w hypertonic saline nebs. c/w lasix iv daily --to home po lasix . Repeat blood cultures have been negative and sputum culture showing normal jennifer No signs and or symptoms of infection Remains medically stable without any signs and or symptoms of infection Requiring 2 L of oxygen via nasal cannula to maintain saturation Has been requiring 2 to 3 L to maintain saturation and will be continued He wants to go home today and will have outpatient PT and OT as planned CLL Anemia, thrombocytopenia-due to CLL History of CLL; not on treatment. Follows up with oncology as outpatient Hemoglobin of 6.4 on admission; also had complication of tracheostomy site bleeding (see above) Received 7 units of packed RBC so far. Also 2 unit of pooled platelets. Seen by inpatient hematology; recommend vitamin B12 supplement for low vitamin B12. Quantitative IgG to be sent; if less than 500; plan for infusion of IVIG 400 mg/kg IV infusion every 4 weeks. IVIG 396.8; IVIG given 06/02/23 CT of the abdomen pelvis showed: Evidence of CLL as depicted in impression:1. Splenomegaly measuring 19.5 cm in length. This is likely similar to the prior chest CT. 2. Moderate gallbladder wall thickening/edema. This is nonspecific and could represent underlying hepatic disease, a diffuse edematous state, or possibly a cholecystitis. Clinical correlation recommended. 3. Mild upper abdominal lymphadenopathy is stable to slightly improved compared to the prior chest CT. 4. Multiple additional retroperitoneal and pelvic lymph nodes measure subcentimeter in short axis diameter and therefore do not meet CT criteria for pathologic involvement. 5. Mild thickening of the distal esophagus suggestive of esophagitis. 6. A 2.5 cm irregular density within the left lower lobe. This is partially imaged but appears similar to the prior chest CT. This favors an infectious/inflammatory process given the surrounding tree-in-bud nodular opacities. Attention at follow-up recommended. 7. Additional findings as described in the main report Hemoglobin remains stable at 7.0-will repeat CBC tomorrow if the hemoglobin goes below 7 will give more transfusion Hemoglobin is dropped to 6.5-discussed with the oncologist and advised to have 2 units of blood transfusion and start prednisone 100 mg daily for 4 days He may be discharged home with an appointment early next week with a flight instructor to start treatment for CLL Patient refused to go to rehab so likely to be sent home tomorrow if remains stable His hemoglobin is 7.4 today and feels a little bit better with weakness He was strongly advised to keep appointment with the healthcare provider as early as possible next week to have the blood checked and go for any specific treatment for CLL through his flight instructor and oncologist Elevated liver enzymes Bilirubin and liver enzymes elevated on May 29 Down trended on subsequent lab work on May 30 Discussed with fork repairer regarding the elevated liver enzymes; as per fork repairer; the likely cause for it is the tube feeds which can cause gallbladder to be contracted. Liver USG- no hepatic abnormality. Gallbladder sludge with chronically prominent gallbladder wall. Improving, Continue to monitor No signs and or symptoms of acute cholecystitis LFT as OP-LFT seems to be stabilized Acute kidney injury: Likely secondary to sepsis. Resolved. Chronic right sided heart failure : Home lasix course is 80mg BID, continue. Hyperkalemia : Improved, continue to monitor daily. DVT Ppx: SCDs Code status: FULL PCP: Reva Dispo: PT OT ASSEMBLER FLEXIBLE LEADS ordered on board. CM assisting w/ placement. likely marquez. Awaiting placement-refused to go to rehab Likely to be discharged this afternoon Discussed with the daughter in detail Total Time Total Time Spent Total Time Spent (In Minutes): 40 minutes Discharge Plan Discharge Items Patient Disposition: Home - Home Health Services Reason For Visit: ACUTE ON CHRONIC RESP FAILURE, COPD EXAC, URI Discharge Diagnosis: Acute on chronic respiratory failure, CLL requiring frequent blood transfusion, generalized weakness Condition on Discharge: Fair Activity: As commented below Activity Comment: Continue with PT and OT as an outpatient Non-emergency contact: Primary Care Provider Call non-emergency contact if: you have any medication questions and your symptoms worsen Follow-up/Referrals: [facility],Home Healthcare [Non-Staff] - Stas Ardon MD [Primary Care Provider] - (Date & Time 06/15/2023 11:00 AM Provider Stas Ardon MD [facility] ) Jigar Ramirez MD [Hospitalist] - 06/15/23 2:15 pm (Please arrive at 2:15 for labs, then appointment with Dr Ramirez at 2:45.) Diet: Regular Fluids: 1800ml (7 cups) Diet Comment: Minced and moist Addtl Attending Provider Instructions: Please take precautions to avoid falls Take your time to initiate any activities to prevent any complications due to your weakness and tiredness Please give appointments with your healthcare providers Continue prednisone 100 mg daily for next 2 days. Continue with the sacral wound care as advised by the wound care nurse Continue home oxygen Pending Studies at Discharge: No Stand-Alone Forms: My [employer], Smoking Cessation Medications and DC Order Prescriptions: New cyanocobalamin (vitamin B-12) 500 mcg Tablet 1,000 mcg PO QAM Qty: 30 0RF prednisone 50 mg Tablet 100 mg PO DAILY Qty: 4 0RF folic acid 1 mg Tablet 1 mg PO QAM Qty: 30 0RF Continued albuterol sulfate 2.5 mg /3 mL (0.083 %) Solution For Nebulization 2.5 mg INHALATION DIRECTED PRN (Reason: Shortness Of Breath) tamsulosin 0.4 mg capsule 0.4 mg PO DAILY tiotropium bromide [Spiriva with HandiHaler] 18 mcg capsule, w/inhalation device 18 mcg INHALATION DAILY fluticasone propion-salmeterol [Advair HFA] 230-21 mcg/actuation HFA aerosol inhaler 2 inh INHALATION BID prednisone 10 mg tablet 10 mg PO DIRECTED Qty: 50 0RF Rx Instructions: 4 p.o. daily for 5 days, 3 p.o. daily for 5 days, 2 p.o. daily for 5 days, 1 p.o. daily for 5 days omeprazole 20 mg capsule,delayed release(DR/EC) 20 mg PO DAILYBB fluticasone propion-salmeterol [Advair HFA] 230-21 mcg/actuation HFA aerosol inhaler 2 puff INHALATION AMHS albuterol sulfate 90 mcg/actuation HFA aerosol inhaler 2 puff INHALATION Q4 PRN (Reason: Shortness Of Breath Or Wheezing) tiotropium bromide [Spiriva with HandiHaler] 18 mcg capsule, w/inhalation device 1 cap INHALATION QAM epinephrine [EpiPen] 0.3 mg/0.3 mL Auto-Injector 0.3 mg IM UD PRN (Reason: bee stings) furosemide 80 mg Tablet 80 mg PO BID Discontinued furosemide 80 mg tablet 80 mg PO BID epinephrine 0.3 mg/0.3 mL Auto-Injector 0.3 mg IM DIRECTED PRN (Reason: Allergic Reaction) Discharge Orders: Discharge Order (Routine); Ordered 06/10/23 Ordered By: Woody Lopez Admission Data Admit Date/Time: 05/22/23 18:13 Attending Provider: Woody Lopez Admit Provider: Ronaldo Reyna Primary Care Provider: Stas Ardon Other Providers: Leslie Carrington; Ronaldo Reyna; Leo Peraza; Pretty Vazquez; Emily Reddy; Brad Monroy; Jeana Gilbert; Christiano Heath; Shobha Preston; Giovanna Jarrett; Parish Ramos; Lexx Martinez; Sheryl Lang; ObdulioP,No Attending; [facility]; Robert Diallo; [facility] Other Interventions: Discharge Summary Assessment (RN) Last Done: 06/10/23 14:43
== END 2023-06-10 15:46 | disposition home or self-care (01) | DRG 3 ==
LOC: EDBD → ED 15:28 → SUATTDRO 18:13 → 1E 18:13 → MERGE 18:13 → 1E 23:18 → 2E 06-02 21:42

== ENCOUNTER 2023-07-04 11:01 | Inpatient (IN) ==
[2023-07-04] MEDS ORDERED: STAT IV Infusion **Titration per Protocol STA (11:13)
--- NOTE | 2023-07-04 11:13 | Emergency Department Note ---
Impression & Plan Acute hypercapnic respiratory failure, Anemia, Pneumonia involving right lung, Elevated WBC count ED Provider Note Name: GRACIE ALFONSO Age: 58 Sex: Male Arrives Via: Ambulance Informant: EMS, patient's daughter via phone Daughter Martine Alfonso ([phone]) ED Provider: Javier Gautam MD Chief Complaint: Respiratory distress Impression: As per impressions above Medical Decision Makin-year-old gentleman with history of CHF, CLL, COPD amongst others arrives for evaluation of acute respiratory failure. Patient was recently hospitalized for respiratory failure discharged a few weeks ago. According to daughter he had been doing all right the last few days other than a bit short of breath with going outside and then rapidly worsened this morning. EMS who were bagging him on arrival. Patient is in acute respiratory failure on arrival with O2 sats in the upper 60s low 70s despite being bagged. Moving minimal air. Patient is obtunded and not able to protect airway. Intubated via RSI. There was some secretions in the posterior pharynx but no food. No difficulty with intubating the patient however he is persistently hypoxic postintubation despite bagging and management. Chest x-ray with whiteout of the right lung. ET tube a bit deep and was pulled back to 3 cm. Continued hypoxia thus at this point patient was fully paralyzed with vecuronium. Sedation continued with IV propofol and adding in as needed Versed, fentanyl. Cultures were obtained. With white out of the right lung suspect there is severe sepsis component of this. He was empirically given cefepime and vancomycin. Patient was given 1 L normal saline bolus for elevated lactic acid however in the setting of CHF and concern for fluid overload he was given only 1 L normal saline bolus rather than 30 mL/kg IV fluids. I early in the patient's course consulted both critical care medicine who evaluated the patient at bedside. Patient is anemic today though is only a little bit lower than his baseline. Given his severe stress situation with hemoglobin less than 7 I feel that transfusion is indicated. Unfortunately patient is intubated I am unable to get in touch with family at this point. I did order 1 unit PRBC for transfusion having reviewed his chart and noting he has previously had multiple transfusions over the last month. Patient's white blood cell count has severely elevated from his baseline. He has had moderate increase in the past but never to this degree. I did discuss this with the hospitalist. In the setting of severity of illness will plan on stabilizing in ICU at this point and determine whether further management of white blood cell count elevation at higher level care was necessary after this. In the severity of illness patient is having with clear evidence of COPD via labs and exam along with a pneumonia in the right lung. I feel it is unlikely that this is PE or dissection. Would hold off on CT angiography of the chest at this time and defer to hospital service. Triage/Nursing Notes reviewed by Me Differential:Pneumonia, COPD exacerbation, pneumothorax, CHF, septic shock, many other pathologies considered Vital Signs: reviewed and remarkable for hypoxia, mild tachy Interventions: Cefepime IV, vancomycin IV, normal saline bolus 1 L IV, propofol IV, etomidate IV, succinylcholine IV, fentanyl IV, Versed IV, continuous DuoNeb, Decadron IV Labs:ED labs Reviewed by me and remarkable for many abnormal laboratory findings see chart for full Imagin view chest x-ray as per my interpretation. Intubated with ET tube a bit deep. There is whiteout of the right lung consistent with a right lung infiltrate versus asymmetric pulmonary edema. EKG:As per my interpretation. Indication respiratory failure. Sinus tachycardia 113 bpm no ectopy nor ischemia. QTc 452. When compared to EKG of fever for 2022 there is no significant change. Cardiac/Tele Monitoring: Cardiac Monitoring: An Order was placed for continuous cardiac monitoring. The monitor shows a rate of 115 with a sinus tach rhythm. Consults:Dr Zeb THEODORE Critical Care, Dr John Aponte Hospitalist Plan: Disposition:Hospitalization. Condition: Critical History of Present Illness: 58-year-old gentleman arrives for evaluation of shortness of breath. Patient apparently with worsening breathing difficulty over the last few days. Rapidly worsening this morning. Patient was altered and confused. 911 was called. On EMS arrival patient was confused satting in the 50s on room air. He was bagged en route to ER due to poor respiratory drive directly to critical care bay. Past Medical History:See Below Home Medications:See Below Allergies:See Below Vitals:Blood Pressure: 120/60, Pulse 120, RR 6, T 36.8C, O2 68% on BVM Physical Exam: GENERAL: Patient is obtunded and unwell appearing RESPIRATORY: Moving minimal air. No respiratory drive. CARDIOVASCULAR: Regular rate and rhythm.No murmur appreciated. EXTREMITIES: Normal motion all extremities, no cyanosis, no edema. NEUROLOGIC: Obtunded. No focal neurologic deficits appreciated SKIN: Mottled ED Course: Times/Reassessments: Patient's oxygenation finally coming up after paralytic. Critical Care: I have personally spent 90 minutes of critical care time in the direct management of this patient. Acute hypercapnic and hypoxic respiratory failure requiring emergent intubation, medical paralysis, anemia amongst extensive other critical lab abnormalities. This was a life/limb threatening event. This 90 minutes is in excess of all separately billable procedures. 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] HTN (hypertension) Lung nodules Chronic right-sided heart failure Tobacco use Chronic respiratory failure COPD (chronic obstructive pulmonary disease) Chronic lymphocytic leukemia CHF (congestive heart failure) Necrotizing pneumonia CLL (chronic lymphocytic leukemia) Obesity COPD (chronic obstructive pulmonary disease) HLD (hyperlipidemia) HTN (hypertension) Acute respiratory failure with hypoxia Acute leukemia Surgical History (Updated 06/07/23 @ 09:30 by Luis Ott MD) History of tracheostomy Hx of appendectomy History of bronchoscopy 12/15/22 - @ [facility] [place] Family History (System 05/24/23 @ 07:31 by Lizzy Gupta) Other Heart disease Lung cancer Social History (System 05/24/23 @ 07:31 by Lizzy Gupta) Smoking Status: Current every day smoker Tobacco Type: Cigarettes Second Hand Exposure: No; Do You Dip or Chew Tobacco: No; Hx Alcohol Use: Yes Alcohol type: beer Alcohol Intake Frequency: 2-4 x/Month Hx Substance Use: No Preferred Language: Luxembourgish 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 Required: No Beliefs That Will Affect Care: None Current Living Situation: Alone Feels Safe at Home: Yes Assistive Devices: Cane Allergies Allergies Allergy/AdvReac Type Severity Reaction Status Date / Time Penicillins Allergy Intermediate Hives Verified 07/04/23 12:36 bee venom protein (honey bee) Allergy Unknown ON [facility] MED Verified 07/04/23 12:36 LIST Home Meds Home Medications Medication Instructions Recorded Confirmed tiotropium bromide 18 mcg capsule 18 mcg inhalation DAILY 06/25/22 07/04/23 with inhalation device (Spiriva with HandiHaler) albuterol sulfate 90 mcg/actuation 2 puff inhalation Q4 PRN Shortness 05/22/23 07/04/23 aerosol inhaler Of Breath Or Wheezing epinephrine 0.3 mg/0.3 mL 0.3 mg IM UD PRN bee stings 05/22/23 07/04/23 injection, auto-injector (EpiPen) fluticasone propionate 230 2 puff inhalation AMHS 05/22/23 07/04/23 mcg-salmeterol 21 mcg/actuation HFA inhaler (Advair HFA) furosemide 80 mg tablet 80 mg PO BID 05/22/23 07/04/23 omeprazole 20 mg capsule,delayed 20 mg PO DAILYBB 05/22/23 07/04/23 release Previous Rx's Medication Instructions Recorded cyanocobalamin (vitamin B-12) 500 1,000 mcg (2 x 500 mcg) PO QAM #30 06/10/23 mcg tablet tabs folic acid 1 mg tablet 1 mg PO QAM #30 tabs 06/10/23 Results & Data (ED) Vital Signs Vital Signs - 24 hr 07/04/23 11:10 07/04/23 11:28 07/04/23 11:29 Pulse Rate 118 H 118 H Pulse Rate from SpO2 Sensor Respiratory Rate 13 13 Blood Pressure 160/110 H Blood Pressure Mean 126 Blood Pressure Position Lying Pulse Oximetry 71 L 88 L Oxygen Delivery Method Ambu-Bag Mechanical Vent Mechanical Vent Oxygen Flow Rate 15 15 Fraction of Inspired Oxygen Sepsis Recent Fever Within 48 Hours No Sepsis New/Unexplained Change in Mental Status Yes Sepsis Action Taken by Nursing Physician Notified End-Tidal CO2 07/04/23 11:30 07/04/23 11:35 07/04/23 12:00 Pulse Rate 116 H 122 H 127 H Pulse Rate from SpO2 Sensor 116 H 127 H Respiratory Rate 16 20 18 Blood Pressure 149/87 H 142/83 H Blood Pressure Mean 103 102 Blood Pressure Position Pulse Oximetry 90 93 94 Oxygen Delivery Method Oxygen Flow Rate Fraction of Inspired Oxygen 100 Sepsis Recent Fever Within 48 Hours Sepsis New/Unexplained Change in Mental Status Sepsis Action Taken by Nursing End-Tidal CO2 79 65 63 07/04/23 12:02 07/04/23 12:15 Pulse Rate 123 H 124 H Pulse Rate from SpO2 Sensor 123 H 124 H Respiratory Rate 18 18 Blood Pressure 123/75 125/78 Blood Pressure Mean 91 93 Blood Pressure Position Pulse Oximetry 94 95 Oxygen Delivery Method Oxygen Flow Rate Fraction of Inspired Oxygen Sepsis Recent Fever Within 48 Hours Sepsis New/Unexplained Change in Mental Status Sepsis Action Taken by Nursing End-Tidal CO2 61 59 Laboratory Data 07/04/23 11:19 07/04/23 11:19 Lab Results 07/04/23 07/04/23 07/04/23 Range/Units 11:19 11:20 11:54 WBC 278.09 H* (4.8-10.8) K/ul RBC 2.13 L (4.70-6.10) M/uL Hgb 6.5 L* (14.0-18.0) g/dl POC Hgb (14.0-18.0) g/dl Hct 24.0 L (42.0-52.0) % POC Hct (42-52) % MCV 112.7 H (80.0-100.0) fL MCH 30.5 (25.0-34.0) pg MCHC 27.1 L (32.0-36.0) g/dL RDW Std Deviation 77.4 H (36.4-46.3) fL RDW Coeff of Argenis 20.3 H (11.5-14.5) % Plt Count 150 (130-400) K/uL MPV 12.0 (9.4-12.4) fL Immature Gran % (Auto) 0.2 % Neut % (Auto) 0.8 % Lymph % (Auto) 81.1 % [place] % (Auto) 17.7 % Eos % (Auto) 0.1 % Baso % (Auto) 0.1 % Neut # (Auto) 2.16 (1.40-6.50) K/uL Lymph # (Auto) 225.47 H (1.20-3.40) K/uL [place] # (Auto) 49.13 H (0.11-0.59) K/uL Eos # (Auto) 0.35 (0.00-0.50) K/uL Baso # (Auto) 0.34 H (0.00-0.20) K/uL Immature Gran # (Auto) 0.64 H (0.01-0.20) K/uL Absolute Nucleated RBC 0.38 H (0.00-0.12) K/uL Nucleated RBC % (auto) 0.1 % Smudge Cells Present Polychromasia 1+ Tear Drop Cells 1+ PT 11.7 (9.0-12.0) Seconds INR 1.1 (0.9-1.1) APTT 48 H (21-31) Seconds PTT Ratio 1.7 POC pH (7.35-7.45) POC pCO2 (35-46) mmHg POC pO2 (80-95) mmHg POC HCO3 (19-24) isaiah/L POC Total CO2 (24-31) mmol/L POC Base Excess (-9-1.8) isaiah/L POC ABG O2 Sat (90-95) % VBG pH < 7.00 L (7.36-7.41) VBG pCO2 > 125 H (38-50) mmHg VBG pO2 43 mmHg VBG HCO3 TNP VBG O2 Saturation < 60.0 % VBG Base Excess TNP POC Sodium (135-144) mmol/L Sodium 137 (136-145) mmol/L POC Potassium (3.3-5.0) mmol/L Potassium 5.3 H (3.5-5.1) mmol/L Chloride 101 (98-107) mmol/L Carbon Dioxide 29 (21-32) mmol/L Anion Gap 7 (3-11) BUN 19 (6-23) mg/dl Creatinine 1.30 (0.6-1.4) mg/dl Est Cr Clr Drug Dosing Not Reportable Est GFR ( Amer) 69.2 ml/min Est GFR (Non-Af Amer) 59.7 ml/min BUN/Creatinine Ratio 14.6 (10-20) Glucose 368 H* (70-99(Fasting)) mg/dl Lactate 4.6 H* (0.4-2.0) mmol/L Calcium 8.3 L (8.6-10.3) mg/dl Magnesium 2.7 H (1.7-2.4) mg/dl Total Bilirubin 0.6 (0.2-1.0) mg/dl Direct Bilirubin 0.1 (0-0.2) mg/dl AST 17 (13-39) U/L ALT 14 (7-52) U/L Alkaline Phosphatase 138 H (34-104) U/L Troponin I High Sens 22.5 H (0-20) pg/ml B-Natriuretic Peptide 215 H (0-100) pg/ml Total Protein 6.7 (6.0-8.3) gm/dl Albumin 4.0 (3.4-5.0) gm/dl Procalcitonin 0.19 (0-0.5) ng/ml Urine Color Urine Appearance (Clear) Urine pH (4.5-7.5) Ur Specific [place] (1.000-1.030) Urine Protein (Negative) Urine Glucose (UA) (Negative) Urine Ketones (Negative) Urine Blood (Negative) Urine Nitrite (Negative) Urine Bilirubin (Negative) Urine Urobilinogen (Negative) Ur Leukocyte Esterase (Negative) Urine WBC (Auto) (0-5) /hpf Urine RBC (Auto) (0-4) /hpf U Hyaline Cast (Auto) (0-5) /lpf U Epithel Cells (Auto) (0-5) /lpf Urine Bacteria (Auto) (Negative) Urine Yeast Urine Sperm (None Prsent) Adenovirus (PCR) Not Detected (NotDetected) B. pertussis DNA (PCR) Not Detected (NotDetected) B.parapertussis DNA PCR Not Detected (NotDetected) C. pneumoniae DNA (PCR) Not Detected (NotDetected) Coronavirus OC43 (PCR) Not Detected (NotDetected) Coronavirus HKU1 (PCR) Not Detected (NotDetected) Coronavirus 229E (PCR) Not Detected (NotDetected) SARS-CoV-2 (PCR) Not Detected (NotDetected) Coronavirus NL63 (PCR) Not Detected (NotDetected) Human Metapneumovir PCR Not Detected (NotDetected) Influenza Type A (PCR) Not Detected (NotDetected) Influenza Type B (PCR) Not Detected (NotDetected) M. pneumoniae (PCR) Not Detected (NotDetected) Parainfluenza 1 (PCR) Not Detected (NotDetected) Parainfluenza 2 (PCR) Not Detected (NotDetected) Parainfluenza 3 (PCR) Not Detected (NotDetected) Parainfluenza 4 (PCR) Not Detected (NotDetected) RSV (PCR) Not Detected (NotDetected) Entero/Rhino (PCR) Not Detected (NotDetected) Blood Type O Positive Antibody Screen NEGATIVE Crossmatch See Detail 07/04/23 07/04/23 Range/Units 11:55 12:18 WBC (4.8-10.8) K/ul RBC (4.70-6.10) M/uL Hgb (14.0-18.0) g/dl POC Hgb 8.2 L (14.0-18.0) g/dl Hct (42.0-52.0) % POC Hct 24 L (42-52) % MCV (80.0-100.0) fL MCH (25.0-34.0) pg MCHC (32.0-36.0) g/dL RDW Std Deviation (36.4-46.3) fL RDW Coeff of Argenis (11.5-14.5) % Plt Count (130-400) K/uL MPV (9.4-12.4) fL Immature Gran % (Auto) % Neut % (Auto) % Lymph % (Auto) % [place] % (Auto) % Eos % (Auto) % Baso % (Auto) % Neut # (Auto) (1.40-6.50) K/uL Lymph # (Auto) (1.20-3.40) K/uL [place] # (Auto) (0.11-0.59) K/uL Eos # (Auto) (0.00-0.50) K/uL Baso # (Auto) (0.00-0.20) K/uL Immature Gran # (Auto) (0.01-0.20) K/uL Absolute Nucleated RBC (0.00-0.12) K/uL Nucleated RBC % (auto) % Smudge Cells Polychromasia Tear Drop Cells PT (9.0-12.0) Seconds INR (0.9-1.1) APTT (21-31) Seconds PTT Ratio POC pH 7.06 L* (7.35-7.45) POC pCO2 101 H (35-46) mmHg POC pO2 92 (80-95) mmHg POC HCO3 28 H (19-24) isaiah/L POC Total CO2 31 (24-31) mmol/L POC Base Excess -2.0 (-9-1.8) isaiah/L POC ABG O2 Sat 91.0 (90-95) % VBG pH (7.36-7.41) VBG pCO2 (38-50) mmHg VBG pO2 mmHg VBG HCO3 VBG O2 Saturation % VBG Base Excess POC Sodium 138 (135-144) mmol/L Sodium (136-145) mmol/L POC Potassium 5.0 (3.3-5.0) mmol/L Potassium (3.5-5.1) mmol/L Chloride (98-107) mmol/L Carbon Dioxide (21-32) mmol/L Anion Gap (3-11) BUN (6-23) mg/dl Creatinine (0.6-1.4) mg/dl Est Cr Clr Drug Dosing Est GFR ( Amer) ml/min Est GFR (Non-Af Amer) ml/min BUN/Creatinine Ratio (10-20) Glucose (70-99(Fasting)) mg/dl Lactate (0.4-2.0) mmol/L Calcium (8.6-10.3) mg/dl Magnesium (1.7-2.4) mg/dl Total Bilirubin (0.2-1.0) mg/dl Direct Bilirubin (0-0.2) mg/dl AST (13-39) U/L ALT (7-52) U/L Alkaline Phosphatase (34-104) U/L Troponin I High Sens (0-20) pg/ml B-Natriuretic Peptide (0-100) pg/ml Total Protein (6.0-8.3) gm/dl Albumin (3.4-5.0) gm/dl Procalcitonin (0-0.5) ng/ml Urine Color Dark Yellow Urine Appearance Turbid A (Clear) Urine pH 6.0 (4.5-7.5) Ur Specific [place] 1.021 (1.000-1.030) Urine Protein 3+ H (Negative) Urine Glucose (UA) 1+ H (Negative) Urine Ketones Negative (Negative) Urine Blood 1+ H (Negative) Urine Nitrite Negative (Negative) Urine Bilirubin Negative (Negative) Urine Urobilinogen Negative (Negative) Ur Leukocyte Esterase Negative (Negative) Urine WBC (Auto) >30 H (0-5) /hpf Urine RBC (Auto) 5-10 H (0-4) /hpf U Hyaline Cast (Auto) 1-5 (0-5) /lpf U Epithel Cells (Auto) >30 H (0-5) /lpf Urine Bacteria (Auto) 1+ H (Negative) Urine Yeast Not Reportable Urine Sperm Present A (None Prsent) Adenovirus (PCR) (NotDetected) B. pertussis DNA (PCR) (NotDetected) B.parapertussis DNA PCR (NotDetected) C. pneumoniae DNA (PCR) (NotDetected) Coronavirus OC43 (PCR) (NotDetected) Coronavirus HKU1 (PCR) (NotDetected) Coronavirus 229E (PCR) (NotDetected) SARS-CoV-2 (PCR) (NotDetected) Coronavirus NL63 (PCR) (NotDetected) Human Metapneumovir PCR (NotDetected) Influenza Type A (PCR) (NotDetected) Influenza Type B (PCR) (NotDetected) M. pneumoniae (PCR) (NotDetected) Parainfluenza 1 (PCR) (NotDetected) Parainfluenza 2 (PCR) (NotDetected) Parainfluenza 3 (PCR) (NotDetected) Parainfluenza 4 (PCR) (NotDetected) RSV (PCR) (NotDetected) Entero/Rhino (PCR) (NotDetected) Blood Type Antibody Screen Crossmatch Administered Medications Propofol (Diprivan) 1,000 mg in 100 mls @ 12 mls/hr IV .Q8H20M [facility]; Protocol Stop: 07/07/23 11:14 Last Admin: 07/04/23 11:15 Dose: 20 mcg/kg/min, 12 mls/hr Documented By: VIJAY Co-signed By: JAMEY Discontinued Medications Albuterol (Albut/Ipratrop 3mg/0.5mg Neb 3 Ml Vial) 12 ml NEB ONE ONE; Protocol Stop: 07/04/23 11:11 Last Admin: 07/04/23 11:50 Dose: 12 ml Documented By: HALLEY Dexamethasone Sodium Phosphate (DexamethasonePf 10 Mg/Ml Vial) 10 mg IV NOW ONE Stop: 07/04/23 11:11 Last Admin: 07/04/23 11:38 Dose: 10 mg Documented By: VIJAY Fentanyl Citrate (Fentanyl Citrate Pf 100 Mcg/2 Ml Vial) 75 mcg IV NOW STA Stop: 07/04/23 11:45 Last Admin: 07/04/23 12:09 Dose: 75 mcg Documented By: VIJAY Sodium Chloride (Nss) 1,000 mls @ 999 mls/hr IV .Q1H1M SAM Stop: 07/04/23 12:15 Last Infusion: 07/04/23 14:11 Dose: Infused Documented By: Admin: 07/04/23 11:25 Dose: 999 mls/hr Documented By: VIJAY Sodium Chloride (Nss) 1,000 mls @ 999 mls/hr IV .Q1H1M ONE Stop: 07/04/23 12:43 Last Infusion: 07/04/23 14:11 Dose: Infused Documented By: Admin: 07/04/23 12:20 Dose: 999 mls/hr Documented By: VIJAY Cefepime HCl (Maxipime) 2,000 mg in 20 mls @ 5 mls/min IV NOW STA; Protocol Stop: 07/04/23 11:49 Last Admin: 07/04/23 12:20 Dose: 5 mls/min Documented By: VIJAY Vancomycin HCl 2,000 mg/ (Sodium Chloride) 540 mls @ 200 mls/hr IV NOW ONE Stop: 07/04/23 14:29 Last Admin: 07/04/23 12:28 Dose: 200 mls/hr Documented By: VIJAY Midazolam HCl (Midazolam Hcl 1 Mg/Ml 2ml Vial) 2 mg IV NOW STA Stop: 07/04/23 11:45 Last Admin: 07/04/23 12:09 Dose: 2 mg Documented By: VIJAY Miscellaneous (Rapid Sequence Induction Bag) Confirm Administered Dose 1 each N/A .STK-MED ONE Stop: 07/04/23 10:55 Last Admin: 07/04/23 11:26 Dose: Not Given Documented By: VIJAY Miscellaneous (Patient's Height Needed) 1 each N/A Q2H SAM Stop: 08/03/23 13:29 Last Admin: 07/04/23 14:50 Dose: 1 each Documented By: LISS Propofol (Propofol Iv Emulsion 10 Mg/Ml 100 Ml Vial) Confirm Administered Dose 1,000 mg IV .STK-MED ONE Stop: 07/04/23 11:12 Last Admin: 07/04/23 11:26 Dose: Not Given Documented By: VIJAY Vecuronium Aledo (Vecuronium Aledo 10 Mg Vial) Confirm Administered Dose 10 mg IV .STK-MED ONE Stop: 07/04/23 11:20 Last Admin: 07/04/23 11:24 Dose: 10 mg Documented By: VIJAY Co-signed By: JAMEY Vecuronium Aledo (Vecuronium Aledo 10 Mg Vial) 10 mg IV 1119 SAM Stop: 07/04/23 11:20 Last Admin: 07/04/23 12:02 Dose: Not Given Documented By: VIJAY Imaging Data Radiologist's Impression: Chest X-Ray 07/04/23 11:10 XR chest 1V portable CLINICAL HISTORY: Sepsis TECHNIQUE: Single frontal radiograph of the chest was obtained. Comparison: Comparison is made to chest radiograph 05/31/2023 FINDINGS: Endotracheal tube is at the melani. The cardiomediastinal silhouette is normal. Multifocal airspace opacities are seen. These are most prominent in the right lung and have worsened from the prior exam. No evidence of pleural effusion or pneumothorax. IMPRESSION: Endotracheal tube is at the melani and can be withdrawn approximately 3 cm. Multiple airspace opacities are worsened from the prior exam. ACT 112: Negative or not required by law. Electronically signed by: Fer Rome M.D. 07/04/2023 11:41 AM Discharge Plan Visit Data Chief Complaint: Respiratory Distress Stated Complaint: SOB ED Provider: Javier Gautam Discharge Problem: Acute hypercapnic respiratory failure, Anemia, Pneumonia involving right lung, Elevated WBC count Patient Disposition: Admitted As Inpatient Discharge Instructions Interventions: ED Discharge Assessment Last Done: 07/04/23 13:30 Discharge Problem: Anemia Qualifiers: Anemia type: other cause Other causes of anemia: other cause, not classified Q ualified Code(s): D64.89 - Other specified anemias Pneumonia involving right lung Qualifiers: Pneumonia type: due to unspecified organism Lung location: upper lobe of lung Q ualified Code(s): J18.9 - Pneumonia, unspecified organism Elevated WBC count Qualifiers: Leukocytosis type: unspecified Qualified Code(s): D72.829 - Elevated white blood cell count, unspecified
[2023-07-04] MEDS: propofoL 1,000 MG/100 ML VIAL IV SCH (11:15)
[2023-07-04] MEDS: VECURONIUM BROMIDE 10 MG VIAL IV ONE (11:24)
[2023-07-04] MEDS: SODIUM CHLORIDE 0.9% 1,000 ML IV SCH (11:25)
[2023-07-04] MEDS: PROPOFOL IV EMULSION 10 MG/ML 100 ML VIAL IV ONE (11:26)
[2023-07-04] MEDS: RAPID SEQUENCE INDUCTION BAG ONE (11:26)
[2023-07-04] MEDS: dexAMETHasone**PF** 10 MG/ML VIAL IV ONE (11:38)
[2023-07-04 11:41] LABS: Oxygen Saturation VBG < 60.0 %; PCO2 VBG > 125 mmHg (38-50); PO2 VBG 43 mmHg; pH VBG < 7.00 (7.36-7.41)
--- NOTE | 2023-07-04 11:43 | XRay Report ---
XR chest 1V portable CLINICAL HISTORY: Sepsis TECHNIQUE: Single frontal radiograph of the chest was obtained. Comparison: Comparison is made to chest radiograph 05/31/2023 FINDINGS: Endotracheal tube is at the melani. The cardiomediastinal silhouette is normal. Multifocal airspace o pacities are seen. These are most prominent in the right lung and have worsened from the prior exam. No evidence of pleural effusion or pneumothorax. IMPRESSION: Endotracheal tube is at the melani and can be withdrawn approximately 3 cm. Multiple airspace opaciti es are worsened from the prior exam. ACT 112: Negative or not required by law. Electronically signed by: Fer Rome M.D. 07/04/2023 11:41 AM
[2023-07-04] MEDS ORDERED: VANCOMYCIN CONSULT ACTIVE PRN (11:48)
[2023-07-04] MEDS: ALBUT/IPRATROP 3MG/0.5MG NEB 3 ML VIAL NEB ONE (11:50)
[2023-07-04] MEDS ORDERED: SODIUM CHLORIDE 0.9% 250 ML IV PRN ×3 (11:52→18:01)
[2023-07-04 12:01] LABS: Hemoglobin 6.5 g/dl (14.0-18.0); Mean Corpuscular Hemoglobin 30.5 pg (25.0-34.0); Mean Corpuscular Hgb Conc 27.1 g/dL (32.0-36.0); Mean Corpuscular Volume 112.7 fL (80.0-100.0); Nucleated RBC # (auto) 0.38 K/uL (0.00-0.12); Nucleated RBC % (auto) 0.1 %; Platelet Count 150 K/uL (130-400); RDW Coefficient of Variation 20.3 % (11.5-14.5); RDW Standard Deviation 77.4 fL (36.4-46.3); Red Blood Count 2.13 M/uL (4.70-6.10); White Blood Count 278.09 K/ul (4.8-10.8)
[2023-07-04] MEDS: VECURONIUM BROMIDE 10 MG VIAL IV SCH (12:02)
[2023-07-04 12:08] LABS: Alanine Aminotransferase 14 U/L (7-52); Alkaline Phosphatase 138 U/L (34-104); Anion Gap 7 (3-11); Aspartate Aminotransferase 17 U/L (13-39); BUN Creatinine Ratio 14.6 (10-20); Bilirubin Direct 0.1 mg/dl (0-0.2); Bilirubin,Total 0.6 mg/dl (0.2-1.0); Blood Urea Nitrogen 19 mg/dl (6-23); Calcium 8.3 mg/dl (8.6-10.3); Carbon Dioxide 29 mmol/L (21-32); Chloride 101 mmol/L (98-107); Est GFR (African American) 69.2 ml/min; Est GFR (Non-African American) 59.7 ml/min; Glucose 368 mg/dl (70-99(Fasting)); Magnesium 2.7 mg/dl (1.7-2.4); Potassium 5.3 mmol/L (3.5-5.1); Sodium 137 mmol/L (136-145); Total Protein 6.7 gm/dl (6.0-8.3)
[2023-07-04 12:09] LABS: Troponin I High Sensitivity 22.5 pg/ml (0-20)
[2023-07-04] MEDS: MIDAZOLAM HCL 1 MG/ML 2ML VIAL IV STA (12:09)
[2023-07-04] MEDS: fentaNYL citrate PF 100 MCG/2 ML VIAL IV STA (12:09)
[2023-07-04 12:14] LABS: Appearance Urine Turbid (Clear); Bacteria Urine Automated 1+ (Negative); Bilirubin Urine Negative (Negative); Blood Urine 1+ (Negative); Color Urine Dark Yellow; Epithelial Cell Urine Auto >30 /lpf (0-5); Glucose Urine UA 1+ (Negative); Ketones Urine Negative (Negative); Leukocyte Esterase Urine Negative (Negative); Nitrite Urine Negative (Negative); Protein Urine 3+ (Negative); Specific Gravity Urine 1.021 (1.000-1.030); Urobilinogen Urine Negative (Negative); WBC Urine Automated >30 /hpf (0-5)
[2023-07-04 12:19] LABS: INR 1.1 (0.9-1.1); Partial Thromboplastin Ratio 1.7; Partial Thromboplastin Time 48 Seconds (21-31); Prothrombin Time 11.7 Seconds (9.0-12.0)
[2023-07-04] MEDS: SODIUM CHLORIDE 0.9% 1,000 ML IV ONE (12:20)
[2023-07-04] MEDS: CEFEPIME 2,000 MG/20 ML VIAL IV STA (12:20)
[2023-07-04] MEDS: VANCOMYCIN HCL 2,000 MG in SODIUM CHLORIDE 0.9% 500 ML IV ONE (12:28)
--- NOTE | 2023-07-04 12:30 | Critical Care Consultation ---
Date of Consultation July 04, 2023 Assessment & Plan (1) Acute and chronic respiratory failure: (2) History of tracheostomy: (3) Chronic right-sided heart failure: (4) Tobacco use: (5) COPD (chronic obstructive pulmonary disease): (6) Chronic respiratory failure: (7) Pneumonia: (8) (HFpEF) heart failure with preserved ejection fraction: (9) Anemia: (10) CLL (chronic lymphocytic leukemia): Plan Reason Critically Ill: 57-year-old male past medical history of CML not on any treatment, HFrEF, COPD on oxygen, GERD was brought in intubated for respiratory distress Neuro - [facility] ICU: Negative Propofol and fentanyl for sedation Cardiac - --Elevated troponin Likely secondary to type II VT EKG does not show any ST-T wave changes Continue to monitor -- HFpEF BNP 215 at the time of presentation 2D echo 05/24/2023: EF 65 to 70%, grade 1 diastolic dysfunction, RV normal in size and function Respiratory - -- VDRF Multifactorial Likely secondary to COPD exacerbation secondary to entero-/rhinovirus Continue with ventilatory support Keep RASS -1 Respiratory bio fire negative for everything Procalcitonin 0.19 BNP 215 --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 Not in exacerbation On Advair and Spiriva at home GI - -- History of GERD Continue with pantoprazole RENAL/LYTES - -- Hyperkalemia Could be an error given hyperleukocytosis - Ramon catheter ENDO - -- ICU hypoglycemia protocol HEME - -- History of CLL with hyperleukocytosis Not on any chemotherapy right now --Macrocytic anemia MCV 117 Monitor H&H --Thrombocytopenia Continue to monitor ID - -- Multilobar pneumonia Mostly affecting the right side Procalcitonin 0.19 Nasal MRSA negative Continue with broad-spectrum antibiotics Follow sputum culture --Prophylaxis VTE: IPC GI: Pantoprazole Lines: Peripheral Diet: N.p.o. Plan: ABG 7./ on presentation in the ED After being on ventilator it went up to 7.17 and pCO2 decreased to 78. Will increase the respiratory rate to 20, increase the tidal volume to 470 and decrease the PEEP to 8. On the x-ray ET tube was 1 cm above the melani. It was retracted as per the documentation. I will do a chest x-ray Follow sputum culture. DC vancomycin given nasal MRSA negative Lactic acidosis is improving. I have personally spent 62 minutes of critical care time in the direct management of this patient. This is a life/limb threatening event. This includes time spent evaluating patient, direct bedside care, chart review, placing orders, interpretation of diagnostic studies, discussion with consultants, patient, and family members, as well as other required patient management activities. This time is exclusive of all separately billable procedures, and teaching time and separate from and in addition to any other critical care service time. Please note the above document was generated using voice recognition software. It may contain grammatical, syntax or spelling errors. History of Present Illness History of Present Illness 57-year-old male came to the ER with shortness of breath, was severely hypoxic, intubated in the ED Past medical history: COPD on chronic oxygen, systolic CHF, CLL ICU was consulted because of intubation Patient was recently in the hospital end of April early May for respiratory failure. He ended up having trach and was decannulated prior to discharge. At the time of examination patient was saturating 95% on the vent He was breathing with the ventilator. End-tidal was in the low 50s Peak pressure was still on the higher side. When it was changed to PRVC with peak going down to 31. He did get paralytics in the ED as he was fighting the vent. History was obtained from previous chart as well as H&P Allergies Allergy/AdvReac Type Severity Reaction Status Date / Time Penicillins Allergy Intermediate Hives Verified 07/04/23 12:36 bee venom protein (honey bee) Allergy Unknown ON GMG MED Verified 07/04/23 12:36 LIST Home Medications Medication Instructions Recorded Confirmed Type tiotropium bromide 18 mcg capsule 18 mcg inhalation DAILY 06/25/22 07/04/23 History with inhalation device (Spiriva with HandiHaler) albuterol sulfate 90 mcg/actuation 2 puff inhalation Q4 PRN Shortness 05/22/23 07/04/23 History aerosol inhaler Of Breath Or Wheezing epinephrine 0.3 mg/0.3 mL 0.3 mg IM UD PRN bee stings 05/22/23 07/04/23 History injection, auto-injector (EpiPen) fluticasone propionate 230 2 puff inhalation AMHS 05/22/23 07/04/23 History mcg-salmeterol 21 mcg/actuation HFA inhaler (Advair HFA) furosemide 80 mg tablet 80 mg PO BID 05/22/23 07/04/23 History omeprazole 20 mg capsule,delayed 20 mg PO DAILYBB 05/22/23 07/04/23 History release cyanocobalamin (vitamin B-12) 500 1,000 mcg (2 x 500 mcg) PO QAM #30 06/10/23 07/04/23 Rx mcg tablet tabs folic acid 1 mg tablet 1 mg PO QAM #30 tabs 06/10/23 07/04/23 Rx Patient History Medical History (Updated 07/04/23 @ 16:29 by Leslie Carrington MD, [facility]) Acute and chronic respiratory failure 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] HTN (hypertension) Lung nodules Chronic right-sided heart failure Tobacco use Chronic respiratory failure COPD (chronic obstructive pulmonary disease) Chronic lymphocytic leukemia CHF (congestive heart failure) Necrotizing pneumonia CLL (chronic lymphocytic leukemia) Obesity COPD (chronic obstructive pulmonary disease) HLD (hyperlipidemia) HTN (hypertension) Acute respiratory failure with hypoxia Acute leukemia Surgical History (Updated 06/07/23 @ 09:30 by Luis Ott MD) History of tracheostomy Hx of appendectomy History of bronchoscopy 12/15/22 - @ [facility] [place] Family History (System 05/24/23 @ 07:31 by Lizzy Gupta) Other Heart disease Lung cancer Social History (System 05/24/23 @ 07:31 by Lizzy Gupta) Smoking Status: Current every day smoker Tobacco Type: Cigarettes Second Hand Exposure: No; Do You Dip or Chew Tobacco: No; Hx Alcohol Use: Yes Alcohol type: beer Alcohol Intake Frequency: 2-4 x/Month Hx Substance Use: No Preferred Language: Rwandan 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 Surgical Appliances Required: No Beliefs That Will Affect Care: None Current Living Situation: Alone Feels Safe at Home: Yes Assistive Devices: Cane Review of Systems 2 Review of Systems: Unobtainable due to endotracheal tube Physical Exam 2 Physical Exam: Constitutional: No acute distress HEENT: PERRLA, trach scar present Respiratory system: Decreased air entry bilaterally, no wheeze, rhonchi, positive crackles bilaterally CVS: S1-S2 positive, no murmurs or gallops Abdomen: Soft, nontender, nondistended, positive bowel sounds x4, obese Extremities: +2 pulses bilaterally radialis/ dorsalis pedis, no cyanosis, no edema Neuro: Dated, breathing with vent Psych: Unable to assess G/U: Positive Ramon Skin: no rashes, warm and dry Lymphatic: no cervical or axillary lymphadenopathy Results & Data Results & Data Vital Signs (Past 12 Hours) Vital Signs Pulse Resp BP Pulse Ox O2 Del Method O2 Flow Rate FiO2 07/04/23 12:00 127 H 18 142/83 H 94 07/04/23 11:35 122 H 20 93 100 07/04/23 11:30 116 H 16 149/87 H 90 07/04/23 11:29 Mechanical Vent 15 07/04/23 11:28 118 H 13 88 L Mechanical Vent 07/04/23 11:10 118 H 13 160/110 H 71 L Ambu-Bag 15 Laboratory Results 07/04/23 11:19 07/04/23 11:19 Coding Level of Care Code 60555 CRITICAL CARE 1ST 30-74M Diagnoses Acute and chronic respiratory failure J96.20 History of tracheostomy Z98.890 Chronic right-sided heart failure I50.812 Tobacco use Z72.0 COPD (chronic obstructive pulmonary disease) J44.9 Chronic respiratory failure J96.10 Pneumonia J18.9 Laterality: right Lung location: unspecified part of lung Pneumonia type: due to unspecified organism (HFpEF) heart failure with preserved ejection fraction I50.30 Anemia due to other cause, not classified D64.89 Anemia type: other cause Other causes of anemia: other cause, not classified CLL (chronic lymphocytic leukemia) C91.10 (7) Pneumonia Laterality: right Lung location: unspecified part of lung Pneumonia type: d ue to unspecified organism Qualified Code(s): J18.9 - Pneumonia, unspecified organism (9) Anemia Anemia type: other cause Other causes of anemia: other cause, not classified Qualified Code(s): D64.89 - Other specified anemias
[2023-07-04 12:31] LABS: Adenovirus PCR Not Detected (NotDetected); Bordetella parapertussis PCR Not Detected (NotDetected); Bordetella pertussis PCR Not Detected (NotDetected); Chlamydia pneumoniae PCR Not Detected (NotDetected); Coronavirus 229E PCR Not Detected (NotDetected); Coronavirus CoV-2 (COVID19)PCR Not Detected (NotDetected); Coronavirus HKU1 PCR Not Detected (NotDetected); Coronavirus NL63 PCR Not Detected (NotDetected); Coronavirus OC43PCR Not Detected (NotDetected); Human Metapneumovirus PCR Not Detected (NotDetected); Influenza A PCR Not Detected (NotDetected); Influenza B PCR Not Detected (NotDetected); Mycoplasma pneumoniae PCR Not Detected (NotDetected); Parainfluenza Virus 1 PCR Not Detected (NotDetected); Parainfluenza Virus 2 PCR Not Detected (NotDetected); Parainfluenza Virus 3 PCR Not Detected (NotDetected); Parainfluenza Virus 4 PCR Not Detected (NotDetected); Respiratory Syncytial VirusPCR Not Detected (NotDetected); Rhinovirus/Enterovirus PCR Not Detected (NotDetected)
[2023-07-04 12:31] LABS: Sperm Urine Present (None Prsent)
--- NOTE | 2023-07-04 13:03 | History & Physical Report ---
Date of Service July 04, 2023 Assessment & Plan (1) Acute and chronic respiratory failure: Plan: Presented to ER with increasing shortness of breath and almost unresponsiveness He required intubation in the emergency room Remains on mechanical ventilator with sedation Consult range feeder (2) Multifocal pneumonia: Plan: Right-sided multilobar involvement Could be in part due to CHF Blood cultures was taken He was started with intravenous vancomycin and cefepime (3) CLL (chronic lymphocytic leukemia): Plan: History of CLL and the was on ibrutinib started on 02/10/2021 and on hold since 2021 due to heart failure White cell count remains around upper 30s Increased to 278 1 07/04/2023-could be secondary to 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 Lang-the washer meat Continue with current management Will get peripheral blood smear and let her know about the results Likely to improve white count down the line and he will need to see Dr. Tejada as an outpatient to continue therapy Previous admission- in [facility] Apparently white count was 2 25,000 during his last admission about a month ago and he was transferred to [place] for further management of possible AL L CT scan at that time showed lymphadenopathy and splenomegaly and pneumonia. He was treated with antibiotics with improvement of symptoms He received 7 units of blood during his last admission in 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, normal results where observed with the 6, 11 CCND1], 11 VASQUEZ], 14 IgH] and 17( TP 53) probe sets (4) COPD (chronic obstructive pulmonary disease): Plan: History of COPD Has been having more shortness of breath and cold Likely has exacerbation as well Will start with intravenous Solu-Medrol and also nebulized bronchodilators (5) Sepsis: Plan: As above Has increased WBC, increased lactate and also tachycardic Blood cultures were taken, urine culture is sent Started on intravenous vancomycin and cefepime Will get a sputum culture and MRSA screen (6) Chronic right-sided heart failure: Plan: Echo during last admission on 05/23/2023 Concentric LVH, LV wall motion is normal, EF 65 to 70%, grade 1 diastolic dysfunction, aortic valve sclerosis mild without significant stenosis, there is no significant valvular disease and Doppler finding do not suggest pulmonary hypertension proBNP is minimally elevated at 215 Chest x-ray could be consistent with mild congestion . 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]: History of Present Illness Chief Complaint: Increasing shortness of breath for the last few days, required intubation in the emergency room Primary Care Provider: Stas Ardon MD He is a 58-year-old male with significant past medical history of chronic lymphocytic leukemia not on any medication now, COPD, chronic diastolic heart failure, chronic hypoxic respiratory failure, hypertension, selective deficiency of immunoglobin M dyslipidemia and thrombocytopenia apparently complained very short of breath this morning and was brought into the emergency room and required intubation right away due to desaturation and shortness of breath with unresponsiveness. He lives alone and the history is taken from the daughter who talked to him yesterday and according to her he was doing reasonably okay. She mentioned that he has been having more shortness of breath recently and also has been having problem of chest tightness on lying down that he has to sit up or get up from sleeping to relieve the symptoms. He also was noted to have more shortness of breath in cold but no history of fever and chills, no nausea or vomiting, no abdominal pain and no problem with urine or bowel habit. He remains generally weak. The paramedics found him to be very short of breath and on arrival in the emergency room he required intubation due to very low saturation and almost unresponsiveness. He is sedated on mechanical vent and received intravenous vancomycin and cefepime for possible multilobar pneumonia and he was admitted to ICU for continuation of care. Allergies Allergy/AdvReac Type Severity Reaction Status Date / Time Penicillins Allergy Intermediate Hives Verified 07/04/23 12:36 bee venom protein (honey bee) Allergy Unknown ON GMG MED Verified 07/04/23 12:36 LIST Home Medications Medication Instructions Recorded Confirmed Type tiotropium bromide 18 mcg capsule 18 mcg inhalation DAILY 06/25/22 07/04/23 History with inhalation device (Spiriva with HandiHaler) albuterol sulfate 90 mcg/actuation 2 puff inhalation Q4 PRN Shortness 05/22/23 07/04/23 History aerosol inhaler Of Breath Or Wheezing epinephrine 0.3 mg/0.3 mL 0.3 mg IM UD PRN bee stings 05/22/23 07/04/23 History injection, auto-injector (EpiPen) fluticasone propionate 230 2 puff inhalation AMHS 05/22/23 07/04/23 History mcg-salmeterol 21 mcg/actuation HFA inhaler (Advair HFA) furosemide 80 mg tablet 80 mg PO BID 05/22/23 07/04/23 History omeprazole 20 mg capsule,delayed 20 mg PO DAILYBB 05/22/23 07/04/23 History release cyanocobalamin (vitamin B-12) 500 1,000 mcg (2 x 500 mcg) PO QAM #30 06/10/23 07/04/23 Rx mcg tablet tabs folic acid 1 mg tablet 1 mg PO QAM #30 tabs 06/10/23 07/04/23 Rx Past Med/Surg History Medical History (Updated 07/04/23 @ 12:56 by Woody Lopez MD) Acute and chronic respiratory failure 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] HTN (hypertension) Lung nodules Chronic right-sided heart failure Tobacco use Chronic respiratory failure COPD (chronic obstructive pulmonary disease) Chronic lymphocytic leukemia CHF (congestive heart failure) Necrotizing pneumonia CLL (chronic lymphocytic leukemia) Obesity COPD (chronic obstructive pulmonary disease) HLD (hyperlipidemia) HTN (hypertension) Acute respiratory failure with hypoxia Acute leukemia Surgical History (Updated 06/07/23 @ 09:30 by Luis Ott MD) History of tracheostomy Hx of appendectomy History of bronchoscopy 12[place]15[place]22 [place] [facility] [place] Family History (System 05/24/23 @ 07:31 by Lizzy Gupta) Other Heart disease Lung cancer Social History (System 05/24/23 @ 07:31 by Lizzy Gupta) Smoking Status: Unknown if ever smoked Tobacco Type: Cigarettes Second Hand Exposure: No; Do You Dip or Chew Tobacco: No; Hx Alcohol Use: Yes Alcohol type: beer Alcohol Intake Frequency: 2-4 x/Month Hx Substance Use: No Preferred Language: Polish Communication Ability: Impaired Rn Licensed Practical Required: No Beliefs That Will Affect Care: None Current Living Situation: Alone Feels Safe at Home: Yes Assistive Devices: Cane Review of Systems Review of Systems: Unobtainable due to endotracheal tube Physical Exam Physical Exam: Remains unresponsive and sedated Constitutional: well developed, well nourished and + ill appearing Eyes: Closed ENMT: external ear and nose normal, oropharynx normal Neck: trachea midline, no thyromegaly Respiratory: + respiratory distress (On mechanical ve ntilator) Auscultation: + diminished lung sounds, + crackles (Bilateral coarse crackles) and + wheezes (Occasional wheezing bilateral) Cardiovascular: Rate/Rhythm: regular rate, regular rhythm and + tachycardic Heart Sounds: normal S1 and normal S2; no murmur Extremities: + edema (Trace edema bilaterally) Gastrointestinal (Abdomen): Inspection/Auscultation: + abdomen distended (Stop) and normal bowel sounds Percussion/Palpation: abdomen soft Musculoskeletal: No acute arthritis involving any of the joint Neurologic: On mechanical ventilator with sedation Lymphatic: no cervical or axillary lymphadenopathy Results & Data Results & Data Vital Signs (Past 12 Hours) Vital Signs Pulse Resp BP Pulse Ox O2 Del Method O2 Flow Rate FiO2 07/04/23 12:33 119 H 07/04/23 12:30 119 H 18 104/64 97 07/04/23 12:15 124 H 18 125/78 95 07/04/23 12:02 123 H 18 123/75 94 07/04/23 12:00 127 H 18 142/83 H 94 07/04/23 11:35 122 H 20 93 100 07/04/23 11:30 116 H 16 149/87 H 90 07/04/23 11:29 Mechanical Vent 15 07/04/23 11:28 118 H 13 88 L Mechanical Vent 07/04/23 11:10 118 H 13 160/110 H 71 L Ambu-Bag 15 Laboratory Results Short CBC 07/04/23 Range/Units 11:19 WBC 278.09 H* (4.8-10.8) K/ul Hgb 6.5 L* (14.0-18.0) g/dl Hct 24.0 L (42.0-52.0) % Plt Count 150 (130-400) K/uL BMP 07/04/23 11:19 Sodium 137 Potassium 5.3 H Chloride 101 Carbon Dioxide 29 BUN 19 Creatinine 1.30 Glucose 368 H* Calcium 8.3 L Liver Function 07/04/23 Range/Units 11:19 Total Bilirubin 0.6 (0.2-1.0) mg/dl Direct Bilirubin 0.1 (0-0.2) mg/dl AST 17 (13-39) U/L ALT 14 (7-52) U/L Alkaline Phosphatase 138 H (34-104) U/L Albumin 4.0 (3.4-5.0) gm/dl Urine 07/04/23 Range/Units 11:55 Urine Color Dark Yellow Urine Appearance Turbid A (Clear) Urine pH 6.0 (4.5-7.5) Ur Specific [place] 1.021 (1.000-1.030) Urine Protein 3+ H (Negative) Urine Glucose (UA) 1+ H (Negative) Medications Administered Current Inpatient Medications Propofol (Diprivan) 1,000 mg in 100 mls @ 12 mls/hr IV .[id number] [facility]; Protocol Stop: 07/07/23 11:14 Last Admin: 07/04/23 11:15 Dose: 20 mcg/kg/min, 12 mls/hr Vancomycin HCl 2,000 mg/ (Sodium Chloride) 540 mls @ 200 mls/hr IV NOW ONE Stop: 07/04/23 14:29 Last Admin: 07/04/23 12:28 Dose: 200 mls/hr Sodium Chloride (Nss) 250 mls @ 15 mls/hr IV .[id number] PRN PRN Reason: For Transfusion Duration Stop: 07/04/23 21:52 Miscellaneous Information (Vancomycin Consult Active) 1 each N/A UD PRN PRN Reason: Consult Stop: 08/03/23 11:47 Propofol (Propofol Bolus From Bag) 20 mg IV Q5M PRN PRN Reason: Sedation Stop: 07/07/23 11:12 Code Status & VTE Plan VTE Prophylaxis Plan VTE Prophylaxis will be ordered: Yes (5) Sepsis Acute respiratory failure type: with hypoxia Sepsis acute organ dysfunction status: with acute organ dysfunction Sepsis type: sepsis due to unspecified organism Severe sepsis acute organ dysfunction type: acute respiratory failure Severe sepsis shock status: with septic shock Qualified Code(s): A41.9 - Sepsis, unspecified organism; R65.21 - Severe sepsis with septic shock; J96.01 - Acute respiratory failure with hypoxia (8) Anemia Anemia type: other cause Other causes of anemia: other cause, not classified Qualified Code(s): D64.89 - Other specified anemias
[2023-07-04] MEDS ORDERED: ALBUT/IPRATROP 3MG/0.5MG NEB 3 ML VIAL NEB PRN (13:05)
[2023-07-04 13:47] LABS: Basophils # (auto) 0.34 K/uL (0.00-0.20); Basophils % (auto) 0.1 %; Eosinophils # (auto) 0.35 K/uL (0.00-0.50); Eosinophils % (auto) 0.1 %; Immature Granulocytes # (auto) 0.64 K/uL (0.01-0.20); Immature Granulocytes % (auto) 0.2 %; Lymphocytes # (auto) 225.47 K/uL (1.20-3.40); Lymphocytes % (auto) 81.1 %; Monocytes # (auto) 49.13 K/uL (0.11-0.59); Monocytes % (auto) 17.7 %; Neutrophils # (auto) 2.16 K/uL (1.40-6.50); Neutrophils % (auto) 0.8 %; Polychromasia 1+; Smudge Cells Present; Tear Drop Cells 1+
[2023-07-04 13:48] LABS: iSTAT Arterial Blood Gas HCO3 28 meg/L (19-24); iSTAT Arterial Blood Gas pCO2 101 mmHg (35-46); iSTAT Arterial Blood Gas pH 7.06 (7.35-7.45); iSTAT Arterial Blood Gas pO2 92 mmHg (80-95); iSTAT Carbon Dioxide 31 mmol/L (24-31); iSTAT Hematocrit 24 % (42-52); iSTAT Hemoglobin 8.2 g/dl (14.0-18.0); iSTAT Sodium 138 mmol/L (135-144)
[2023-07-04] MEDS: Patient's HEIGHT Needed SCH (14:50)
[2023-07-04 15:20] LABS: iSTAT Allen Test Pass; iSTAT Art Bld Gas pCO2 Correct 74 mmHg (35-46); iSTAT Art Bld Gas pH Corrected 7.184 (7.35-7.45); iSTAT Arterial Blood Gas HCO3 28 meg/L (19-24); iSTAT Arterial Blood Gas pCO2 78 mmHg (35-46); iSTAT Arterial Blood Gas pH 7.17 (7.35-7.45); iSTAT Arterial Blood Gas pO2 71 mmHg (80-95); iSTAT Arterial Blood Gas pO2 C 65; iSTAT Carbon Dioxide 31 mmol/L (24-31); iSTAT Hematocrit 18 % (42-52); iSTAT Hemoglobin 6.1 g/dl (14.0-18.0); iSTAT Potassium 4.4 mmol/L (3.3-5.0); iSTAT Site R Radial; iSTAT Sodium 141 mmol/L (135-144)
--- OUTSIDE RECORDS SUMMARY | 2023-07-04 15:30 | External Medical Summary | Summary of Care ---
Author Name Unknown Organization [facility] Address [address] [place] [address] Phone [phone] Care Team Providers Care Brand Executive Name Role Phone Stas Ardon MD Primary Care Provider Reason for Visit * Reason Onset Date Comments Hospital Follow-Up 06/13/2023 MARLYN Encounter Details Date Type Department Care Team (Late st Contact Info) Description 06/13/2023 Telephone [place] [address] [place] [address] Loren Obando, JUDITH Hospital Follow-Up (MARLYN) Allergies Active Allergy Reactions Criticality Noted Date Comments Bee Stings 10/23/1998 Penicillins 10/23/1998 hives documented as of this encounter (statuses as of 06/14/2023) Medications Medication Sig Dispensed Refills Start Date End Date Status EPI E-Z PEN LASHONDA 1:1000 IJIndications:Toxic effect of venom(989.5) as directed for beesting 2 3 09/30/1999 Active Lidocaine HCl Urethral/Mucosal 2 % External Gel Apply topically to affected area as needed (penile pain). Apply to penis/urethra as needed for discomfort. 30 mL 0 11/19/2021 Active Additional Information Patient not taking.Reported on 10/29/2022 oxygen IN GAS Use 1L on exertion (walking). Use 2L at night while asleep. 1 Each 0 11/19/2021 Active EPINEPHrine 0.3 MG/0.3ML Injection Solution Auto-injector (Autoinjector)Indica tions:Bee sting allergy For a severe reaction: Inject in outer thigh following instructions on package and go to the Emergency room. 2 Each 3 10/29/2022 Active Furosemide 80 MG Oral Tablet (Lasix)Indications:H TN, goal below 130/80 Take 1 Tablet by mouth in the morning and 1 Tablet in the evening. 90 Tablet 3 10/29/2022 Active Omeprazole 20 MG Oral Capsule Delayed Release (PriLOSEC)Indication s:Esophageal pain Take 1 Capsule by mouth in the morning. 1 hour before the first meal of the day. 30 Capsule 11 10/29/2022 Active Fluticasone-Salmeter ol 230-21 MCG/ACT Inhalation Aerosol (Advair)Indications: COPD, group D, by GOLD 2017 classification ([facility]) Inhale 2 Puffs by mouth in the morning and 2 Puffs before bedtime. 12 g 11 11/01/2022 Active Spiriva HandiHaler 18 MCG Inhalation Capsule (tiotropium bromide)Indications: COPD, group D, by GOLD 2017 classification ([facility]) Inhale 1 Capsule by mouth in the morning. . Do not swallow capsule.. 30 Capsule 11 11/01/2022 Active Ventolin HFA 108 (90 Base) MCG/ACT Inhalation Aerosol Solution Inhale 2 Puffs by mouth every 4 hours as needed for Shortness of Breath or Wheezing. 18 g 3 11/01/2022 Active Cyanocobalamin 500 MCG Oral Tablet Take 2 Tablets by mouth in the morning. 0 Active Folic Acid 1 MG Oral Tablet Take 1 Tablet by mouth in the morning. 0 Active documented as of this encounter (statuses as of 06/14/2023) Active Problems Problem Noted Date Diagnosed Date Chronic hypoxemic respiratory failure 11/01/2022 History of pneumonia 11/01/2022 Heart failure, chronic, right-sided 12/27/2021 Acute on chronic right-sided heart failure 11/13 HTN, goal below 130/80 11/13/2021 Dyslipidemia 11/13/2021 COPD, group D, by GOLD 2017 classification 05/20 Lung nodules 05/20/2021 Obesity, Class II, BMI 35-39.9, isolated (see ac tual BMI) 05/20/2021 Selective deficiency of immunoglobulin a (iga) 1 Selective deficiency of immunoglobulin m (igm) 1 Tobacco abuse 12/04/2020 CLL (chronic lymphocytic leukemia) 11/09/2020 Toxic effect of venom 10/23/1998 Overview: ICD-10 update of inactive term documented as of this encounter (statuses as of 06/14/2023) Resolved Problems Problem Noted Date Diagnosed Date Resolved Date Scrotal edema 11/13/2021 11/19/2021 Peripheral edema 11/13/2021 11/19/2021 Acute respiratory failure 11/09/2020 Septic shock 11/05/2020 12/04/2020 Necrotizing pneumonia 11/05/20202020 documented as of this encounter (statuses as of 06/14/2023) Immunizations Name Administration Dates Next Due COVID-19, LNP-s, No Preserve , Basim-sucrose, Ages 12+ (Pfizer) 09/08/2021,08/18/2021 Pneumococcal Polysaccharide PPV23 (Pneumovax) TDAP (age 10 and older)(Boostrix) 03/20/2021 documented as of this encounter Social History Tobacco Use Types Packs/Day Years Used Date Smoking Tobacco: Some Days Cigarettes 0.5 35 Smokeless Tobacco: Former Chew Quit: 10/22/1982 Alcohol Use Standard Drinks/Week Comments Yes 0 (1 standard drink = 0.6 oz pure alcohol) 1-2 beers/month past year; previously 6 beers daily AUDIT-C Answer Date Recorded Q1: How often do you have a drink containing alcohol? 4 or more times a week 12/04/2020 Q2: How many drinks containi ng alcohol do you have on a typical day when you are drinking? 3 or 4 Q3: How often do you have si x or more drinks on one occasion? Not asked 12/04/2020 Sex and Gender Information Value Date Recorded Sex Assigned at Not on file Gender Identity Not on file Sexual Orientation Not on file Job Start Date Occupation Industry Not on file Not on file Not on file documented as of this encounter Functional Status Functional Status Response Date of Assess ment Are you deaf or do you have serious difficulty h earing? No 11/13/2021 Are you blind or do you have serious difficulty seeing, even when wearing glasses? No 11/13/2021 Do you have serious difficul ty walking or climbing stairs? (5 years old or older) No 11/13/2021 Do you have difficulty dress ing or bathing? (5 years old or older) Yes 11/13/2021 Because of a physical, menta l, or emotional condition, do you have difficulty doing errands alone such as visiting a doctor s office or shopping? (15 years old or older) Yes 11/14/19 Cognitive Status Response Date of Assessm ent Because of a physical, menta l, or emotional condition, do you have serious difficulty concentrating, remembering, or making decisions? (5 years old or older) No 11/13/2021 documented as of this encounter Miscellaneous Notes * Telephone Encounter - Loren Obando RN - 06/13/2023 1:32 PM EST Images from the original note were not included. Transitions of Care Note Reason for Referral:Recent Admission Phone visit for follow up: MARLYN Admitted to: [facility], Date: 05/22/2023 Discharged to: Home with Home services, Date: 2023 Diagnosis driving hospitalization: Acute on Chronic Respiratory Failure, CLL requiring frequent blood transfusion, Generalized weakness 05/25/2023 - Percutaneous Dilatational Tracheostomy 05/28/2023 - Fiberoptic Bronchoscopy Source/Contact: Patient SUBJECTIVE Consent: Verbal consent for review of hospital discharge: Yes REVIEW OF SYSTEMS Patient/Other Reports: Current patient/caregiver problems or concerns: Patient states he is doing "fine" at home. Using O23l/NC continuous. States daughter is staying with him for a few days. Up and around with cane. Doing well with diet minced and moist foods, aware of Fluids 1800 ml. CV: Denies problems Pulmonary: Denies problems Chills/Sweats/Fever:Denies chills/sweats Denies fever Appetite:Denies problems such as nausea, vomiting, burning, decreased appetite Current diet: Regular, minced and moist Bowel: denies problems date of last BM: today Bladder: denies problems Wound (If applicable): trach site healing well, JESSICA, without redness,swelling or drainage, Sacral wound with Aquacel and Optifoam, dressing changes per daughter. Has supplies Pain:Denies Sleep:Denies problems Problematic-few hours at a time is his normal FUNCTIONAL STATUS: ADL'S: Needs Assistance With:N/A as pt is independent IADL'S: Needs Assistance With:Grocery Shopping, Cooking food, and Routine Housework, Daughter helps Cognitive and Mental Health: denies problems, alert and oriented x 3, and able to communicate, understand instructions, process information. MEDICATION RECONCILIATION Medications: Discharge med list reviewed with patient or caregiver Patient filled all his new medications. States he has not had Furosemide for quite a while at home.None currently. He does not have a prednisone taper dose, he finished the 100 mg for 2 days. He states he checked with the pharmacy and they will have his Spireva on Tuesday. He does not take Omeprazole or Tamsulosin, and does not have a nebulizer at home. ASSESSMENT Medication Risk Assessment: Missing Refills Did patient fail outpatient treatment? No Discharge instructions available for review? Yes PLAN Symptom Monitoring Interventions:Member/caregiver education - signs and symptoms to contact PrimaryCare (DO NOT DELETE-Three sung symptoms patient is to report to PCP) 1. Chest Pain/SOB 2. Fever/chills 3. Redness, swelling, drainage from trach/sacral sites Applied Behavior Science SpecialistDirector Of Database Marketing of Care interventions/Action Plan: 5 - 7 day follow-up with PCP in place - Date: 06/15/2023 Educated on role of MARLYN completed with patient/caregiver. Educated patient/caregiver on patient right to have input on MARLYN plan of care. Verification of Home Health/DME if indicated: YES , PT/OT [place], [address] Identified Care Gaps: Yes Care Gaps closed this call: Appointment made or confirmed and Transition of Care follow-up communication Re-evaluation of Plan of Care and progress towards goals achievement: Patient education this visit: Verbal, Confirmed PCP appointment 06/15/2023, discussed reasons to call sooner, notified of late hours and weekend provider visits available if needed. Plan to instructed to call Primary Care Provider with change in symptoms or as needed before next follow-up, discharge needs met, verbalizes understanding and agrees with plan. Called [facility] hospitalist is a different provider today from discharge provider. Discussed hospitalization/medications with Dr. Ardon. Notified PCP that he is not taking Furosemide, Spireva, Prednisone taper. Asked PCP to clarify discontinued meds as they are the same as continued meds. Asked if patient would need a taper dose of Prednisone, as the taper dose under continued meds patient does not currently have. PCP to clarify. Offered to patient to send scripts to pharmacy today and pt declined [place] pharmacy until Tuesday. Per Dr. Ardon he will follow up with the patient at his appt. 06/15/23. Loren Obando, RN documented in this encounter Plan of Treatment Upcoming Encounters Date Type Department Care Team (Late st Contact Info) Description 06/15/2023 11:00 AM EST Office Visit [facility] [address] [place] [phone] Stas Ardon MD [address] [place] [address] 06/15/2023 2:10 PM EST Laboratory Laboratory [facility] [address] [place] [id number] [facility] [address] [place] [address] 06/15/2023 2:45 PM EST Office Visit Hematology/Oncology [facility] [place] [address] [place] [address] Jigar Ramirez MD [address] [place] [address] Scheduled Procedures Name Priority Associated Diagnoses Date/Ti me COLONOSCOPY FLEXIBLE PROXIMAL DIAGNOSTIC Recall History of colon polyps Health Maintenance Due Date Last Done Comments Hepatitis B (1 of 3 - 3-dose series) 1964 Depression Screening 1976 HIV Screening 1979 Albumin/Creatinine Ratio 1982 Zoster Vaccines (1 of 2) 1983 *ADVANCE DIRECTIVE NOT ON FILE 05/22/2021 COVID-19 Vaccine (3 - Pfizer risk series) 10/06/2021 09/08/2021, 08/18/2021 Pneumococcal Vaccine: Pediatrics (0 to 5 Years) and At-Risk Patients (6 to 64 Years) (2 - PCV) 03/20/2022 03/20/2021 DISCUSS TOBACCO CESSATION (REFER TO SMARTSET #3291) 05/20/2022 05/20/2021, 01/23/2021 Influenza Vaccine (FLU shot) (#1) 2023 O2 ASSESSMENT COMPLETED IN PAST YEAR FOR COPD 12/16/2023 12/15/2022 GFR 01/04/2024 01/03/2023, 06/0 01/2023, 03/10/2022, Additional history exists COLONOSCOPY-EVERY 3 YRS AGES 18-100 01/22/2025 01/22/2022, 01/22/2022 Diabetes Screening 01/03/2026 01/03/2023, 0 10/29/2022, 03/10/2022, Additional history exists Lipid Panel 10/30/2027 10/29/2022, 04/20/2021 DTaP,Tdap,and Td Vaccines (2 - Td or Tdap) 03/20/2031 03/20/2021 Alpha-1 Antitrypsin Completed 03/19/2021 Colonoscopy Discontinued 01/22/2022, 01/22/2022 Colorectal Cancer Screening Discontinued Cologuard Discontinued Fecal Occult Blood Test Discontinued GARDASIL-HPV IMMUNIZATION SERIES Aged Out No longer eligible based on patient's age to complete this topic MENINGOCOCCAL (MENACTRA/MENVEO) Aged Out No longer eligible based on patient's age to complete this topic Sigmoidoscopy Discontinued documented as of this encounter Medical Devices Not on filedocumented as of this encounter Advance Directives Latest Code Status on File Code Status Date Activated Date Inactivated Comments Full Code 11/13/2021 5:26 PM 11/19/2021 7:49 PM This order reflects the patients wishes and were consensually agreed upon. Question Answer Comments Discussion of Advance Directives occurred with: Patient Code Status History Code Status Date Activated Date Inactivated Comments Full Code 11/13/2021 5:04 PM 11/13/2021 5:05 PM This order reflects the patients wishes and were consensually agreed upon. Full Code 10/29/2020 1:23 PM 11/09/2020 7:15 PM This o rder reflects the patients wishes and were consensually agreed upon. Care Teams Brand Executive Relationship Specialty Start Date End Date Stas Ardon MD [address] [facility] [place] [id number] PCP - General Family Medicine 12/11/21 documented as of this encounter
--- OUTSIDE RECORDS SUMMARY | 2023-07-04 15:30 | External Medical Summary ---
Author Name Unknown Address Unknown Organization [id number]:[facility] [address] [place] [address] Laboratory Report Ordering Provider Test Date Status MARTIR CORREIA 06/15/2023 14:05:42 Final Observation Date Value Abnormality Reference (Units ) Status SYNC LEUKOCYTES IN BLOOD BY AUTOMATED COUNT 06/15/2023 14:05:42 37.82 Above high normal 4.00-10.80 (K/uL) Final Neutrophils/100 leukocytes in Blood by Manual count 06/15/2023 14:05:42 4.0 Below low normal 40.0-75.0 (%) Final Lymphocytes/100 leukocytes in Blood by Manual count 06/15/2023 14:05:42 94.0 Above high normal 18.0-42.0 (%) Final Monocytes/100 leukocytes in Blood by Manual count 06/15/2023 14:05:42 1.0 1.0-11.0 (%) Final Eosinophils/100 leukocytes in Blood by Manual count 06/15/2023 14:05:42 1.0 0.0-6.0 (%) Final Neutrophils [#/volume] in Blood by Manual count 06/15/2023 14:05:42 1.51 Below low normal 1.80-7.70 (K/uL) Final Lymphocytes [#/volume] in Blood by Manual count 06/15/2023 14:05:42 35.55 Above high normal 1.00-4.80 (K/uL) Final Monocytes [#/volume] in Blood by Manual count 06/15/2023 14:05:42 0.38 0.00-1.10 (K/uL) Final Eosinophils [#/volume] in Blood by Manual count 06/15/2023 14:05:42 0.38 0.00-0.70 (K/uL) Final Nucleated erythrocytes/100 leukocytes [Ratio] in Blood by Automated count 06/15/2023 14:05:42 Final Variant lymphocytes [Presence] in Blood by Light microscopy 06/15/2023 14:05:42 Present Abnormal None Seen Final Smudge cells [Presence] in Blood by Light microscopy 06/15/2023 14:05:42 Present Abnormal None Seen Final Performing Location [facility] [address] [place] [address]
--- OUTSIDE RECORDS SUMMARY | 2023-07-04 15:30 | External Medical Summary ---
Author Name Unknown Address Unknown Organization [id number]:[facility] [address] [place] [address] Laboratory Report Ordering Provider Test Date Status MARTIR CORREIA 06/15/2023 14:05:42 Final Observation Date Value Abnormality Reference (Units ) Status BUN 06/15/2023 14:05:42 17 6-20 (mg/dL) Final Creatinine 06/15/2023 14:05:42 1.0 0.6-1.2 (mg/dL) Final Glomerular filtration rate/1.73 sq M.predicted [Volume Rate/Area] in Serum, Plasma or Blood by Creatinine-based formula (CKD-EPI) 06/15/2023 14:05:42 >90 >=60 (mL/min) Final eGFR is calculated based on the CKD-EPI 2020 equation SODIUM 06/15/2023 14:05:42 140 135-146 (m mol/L) Final Potassium 06/15/2023 14:05:42 4.4 3.5-5.1 (m mol/L) Final Cl 06/15/2023 14:05:42 101 98-107 (mm ol/L) Final CO2 06/15/2023 14:05:42 30 22-32 (mmo l/L) Final Anion gap 06/15/2023 14:05:42 9 7-15 (mmol /L) Final Glucose 06/15/2023 14:05:42 97 70-120 (mg /dL) Final Albumin 06/15/2023 14:05:42 3.7 Below low normal 3.8 -5.0 (g/dL) Final AST (Aspartate aminotransferase) 06/15/2023 14:05:42 14 10-50 (U/L) Fin al Alk Phos 06/15/2023 14:05:42 91 35-130 (U/ L) Final Bilirubin, Total 06/15/2023 14:05:42 1.0 <=1 .2 (mg/dL) Final Calcium 06/15/2023 14:05:42 8.6 8.4-10.2 ( mg/dL) Final Protein 06/15/2023 14:05:42 6.3 6.0-8.3 (g /dL) Final ALT (Alanine aminotransferase) 06/15/2023 14:05:42 21 10-50 (U/L) Mariano palomino Performing Location [facility] [address] [place] [address]
--- OUTSIDE RECORDS SUMMARY | 2023-07-04 15:30 | External Medical Summary ---
Author Name Unknown Address Unknown Organization K09:[facility] [place] [address] Laboratory Report Ordering Provider Test Date Status MARTIR CORREIA 06/15/2023 14:05:42 Final Observation Date Value Abnormality Reference (Units ) Status WBC, Total 06/15/2023 14:05:42 37.82 Above high normal 4 .00-10.80 (K/uL) Final RBC 06/15/2023 14:05:42 2.34 4.50-5.25 (M/uL) Final Hemoglobin 06/15/2023 14:05:42 7.3 Below low normal 14 .0-16.8 (g/dL) Final HCT 06/15/2023 14:05:42 24.4 Below low normal 40. 0-48.4 (%) Final MCV 06/15/2023 14:05:42 104.3 82.0-99.5 (fL) Final MCH 06/15/2023 14:05:42 31.2 27.0-34.0 (pg) Final MCHC 06/15/2023 14:05:42 29.9 32.0-36.0 (g/dL) Final RDW 06/15/2023 14:05:42 16.4 11.5-15.5 (%) Final Platelets 06/15/2023 14:05:42 110 Below low normal 140 -400 (K/uL) Final MPV 06/15/2023 14:05:42 11.8 6.6-11.1 ( fL) Final Performing Location [facility] [place] [address]
--- OUTSIDE RECORDS SUMMARY | 2023-07-04 15:30 | External Medical Summary | Summary of Care ---
Author Name Unknown Organization [facility] Address [address] [place] [address] Phone [phone] Care Team Providers Care Piano Case Maker Name Role Phone Stas Ardon MD Primary Care Provider Encounter Details Date Type Department Care Team (Late st Contact Info) Description 05/25/2023 Orders Only [facility] [address] [place] [address] Stas Ardon MD [address] [place] [address] Allergies Active Allergy Reactions Criticality Noted Date Comments Bee Stings 10/23/1998 Penicillins 10/23/1998 hives documented as of this encounter (statuses as of 05/25/2023) Medications Medication Sig Dispensed Refills Start Date [...] D, by GOLD 2017 classification ([facility]) Inhale 2 Puffs by mouth in the morning and 2 Puffs before bedtime. 12 g 11 11/01/2022 Active Spiriva HandiHaler 18 MCG Inhalation Capsule (tiotropium bromide)Indications: COPD, group D, by GOLD 2017 classification ([facility]) Inhale 1 Capsule by mouth in the morning. . Do not swallow capsule.. 30 Capsule 11 11/01/2022 Active Ventolin HFA 108 (90 Base) MCG/ACT Inhalation Aerosol Solution Inhale 2 Puffs by mouth every 4 hours as needed for Shortness of Breath or Wheezing. 18 g 3 11/01/2022 Active documented as of this encounter (statuses as of 05/25/2023) Active Problems Problem Noted Date Diagnosed Date [...] as of this encounter (statuses as of 05/25/2023) Resolved Problems Problem Noted Date Diagnosed Date Resolved Date Scrotal edema 11/13/2021 11/19/2021 Peripheral edema 11/13/2021 11/19/2021 Acute respiratory failure 11/09/2020 Septic shock 11/05/2020 12/04/2020 Necrotizing pneumonia 11/05/20202020 documented as of this encounter (statuses as of 05/25/2023) Immunizations Name Administration Dates Next Due COVID-19, [...] (15 years old or older) Yes 11/14/19 22 Cognitive Status Response Date of Assessm ent Because of a physical, menta l, or emotional condition, do you have serious difficulty concentrating, remembering, or making decisions? (5 years old or older) No 11/13/2021 documented as of this encounter Plan of Treatment Scheduled Procedures Name Priority Associated Diagnoses Date/Ti [...] Not on filedocumented as of this encounter Procedures Procedure Name Priority Date/Time Associated Diagnosis Comments CT CHEST WO CONTRAST Routine 05/22/2023 documented in this encounter Results * CT CHEST WO CONTRAST (05/22/2023) Anatomical Region Laterality Modality Chest, Body, Cardio Other 05/22/2023 History Per Patient RAD CT documented in this encounter Advance Directives Latest Code Status [...] and were consensually agreed upon. Care Teams Piano Case Maker Relationship Specialty Start Date End Date Stas Ardon MD [address] [place] [address] PCP - General Family Medicine 12/11/21 documented as of this encounter
--- OUTSIDE RECORDS SUMMARY | 2023-07-04 15:30 | External Medical Summary ---
Author Name Unknown Address Unknown Organization K01:[facility] [address] [place] [address] Laboratory Report Ordering Provider Test Date Status MARTIR CORREIA 06/15/2023 14:05:42 Final Observation Date Value Abnormality Reference (Units ) Status LDH 06/15/2023 14:05:42 131 <=250 (U/L ) Final Performing Location [facility] [address] [place] [address]
--- OUTSIDE RECORDS SUMMARY | 2023-07-04 15:30 | External Medical Summary | Summary of Care ---
Author Name Unknown Organization [facility] Address [address] [facility] [address] Phone [phone] Care Team Providers Care Scarifier Operator Name Role Phone Stas Ardon MD Primary Care Provider Reason for Visit * Reason Comments Follow Up Encounter Details Date Type Department Care Team (Late st Contact Info) Description 06/15/2023 2:45 PM EST Office Visit Hematology/Oncology [facility] [place] [address] [place] [address] Jigar Ramirez MD [address] [place] [address] CLL (chronic lymphocytic leukemia) (HCC)*; Thrombocytopenia (HCC) Allergies Active Allergy Reactions Criticality Noted Date Comments Bee Stings 10/23/1998 Penicillins 10/23/1998 hives documented as of this encounter (statuses as of 06/15/2023) Medications Medication Sig Dispensed Refills Start Date End Date Status EPI E-Z PEN LASHONDA 1:1000 IJIndications:Toxic effect of venom(989.5) as directed for beesting 2 3 09/30/1999 Active Additional Information Patient not taking.Informant: Child, Reported on 06/15/2023 Lidocaine HCl Urethral/Mucosal 2 % External Gel [...] first meal of the day. 30 Capsule 10/29/2022 Active Additional Information Patient not taking.Reported on 06/15/2023 Fluticasone-Salmeter ol 230-21 MCG/ACT Inhalation Aerosol (Advair)Indications: COPD, group D, by GOLD 2017 classification ([facility]) Inhale 2 Puffs by mouth in the morning and 2 Puffs before bedtime. 12 g 11/01/2022 Active Ventolin HFA 108 (90 Base) MCG/ACT Inhalation Aerosol Solution Inhale 2 Puffs by mouth every 4 hours as needed for Shortness of Breath or Wheezing. 18 g 11/01/2022 Active Cyanocobalamin 500 MCG Oral Tablet Take 2 Tablets by mouth in the morning. 0 Active Folic Acid 1 MG Oral Tablet Take 1 Tablet by mouth in the morning. 0 Active Furosemide 80 MG Oral Tablet (Lasix)Indications:H eart failure, chronic, right-sided ([facility]) Take 1 Tablet by mouth in the morning. 90 Tablet 3 06/15/2023 Active Tiotropium Huntley Monohydrate 18 MCG Inhalation Capsule (Spiriva HandiHaler)Indicatio ns:COPD, group D, by GOLD 2017 classification ([facility]) Inhale 1 Capsule by mouth in the morning. . Do not swallow capsule.. 90 Capsule 06/15/2023 Active Fluticasone-Salmeter ol 250-50 MCG/ACT Inhalation Aerosol Powder Breath Activated (Advair Diskus)Indications:C OPD, group D, by GOLD 2017 classification ([facility]) Inhale 1 Puff by mouth in the morning and 1 Puff before bedtime. 3 Each 3 06/15/2023 Active Albuterol Sulfate HFA 108 (90 Base) MCG/ACT Inhalation Aerosol SolutionIndications: COPD, group D, by GOLD 2017 classification (HCC) Inhale 2 Puffs by mouth every 6 hours as needed for Wheezing or Cough. 54 g 3 06/15/2023 Active Folic Acid 1 MG Oral TabletIndications:Nu trition impaired due to limited access to nutrition related supplies Take 1 Tablet by mouth in the morning. 90 Tablet 3 06/15/2023 Active Vitamin B-12 1000 MCG Oral Tablet (Cyanocobalamin)Kacy cations:Nutrition impaired due to limited access to nutrition related supplies Take 1 Tablet by mouth in the morning. 90 Tablet 3 06/15/2023 Active Omeprazole 20 MG Oral Capsule Delayed Release (PriLOSEC)Indication s:Gastroesophageal reflux disease, unspecified whether esophagitis present Take 1 Capsule by mouth in the morning. 1 hour before the first meal of the day. 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 Tobacco abuse 12/04/2020 CLL (chronic lymphocytic leukemia) 11/09/2020 Toxic effect of venom 10/23/1998 Overview: ICD-10 update of inactive term documented as of this encounter (statuses as of 06/15/2023) Resolved Problems Problem Noted Date Diagnosed Date Resolved Date Scrotal edema 11/13/2021 11/19/2021 Peripheral edema 11/13/2021 11/19/2021 Selective deficiency of immu noglobulin a (iga) 05/20/2021 06/15/2023 Acute respiratory failure 11/09/2020 Septic shock 11/05/2020 12/04/2020 Necrotizing pneumonia 11/05/20202020 documented as of this encounter (statuses as of 06/15/2023) Immunizations Name Administration Dates Next Due COVID-19, LNP-s, No Preserve , Basim-sucrose, Ages 12+ (Pfizer) 09/08/2021,08/18/2021 Pneumococcal Polysaccharide PPV23 (Pneumovax) TDAP (age 10 and older)(Boostrix) 03/20/2021 documented as of this encounter Social History Tobacco Use Types Packs/Day Years Used Date Smoking Tobacco: Former Cigarettes 0.5 35 Smokeless Tobacco: Former Chew Quit: 10/22/1982 Tobacco Cessation:Counseling Given: Not Answered Alcohol Use Standard Drinks/Week Comments Yes 0 [...] on file documented as of this encounter Last Filed Vital Signs Vital Sign Reading Time Taken Comments Blood Pressure 132/90 06/15/2023 2:51 PM EST Pulse 111 06/15/2023 2:51 PM EST Temperature 37.2 C (98.9 F) 06/15/2023 2:51 PM ES T Respiratory Rate 16 06/15/2023 2:51 PM EST Oxygen Saturation 92% 06/15/2023 2:51 PM EST Inhaled Oxygen Concentration - - Weight 100.6 kg (221 lb 12.8 oz) 06/15/2023 2:51 PM EST Height 175.8 cm (5' 9.21") 06/15/2023 2:51 PM ES T Body Mass Index 32.56 06/15/2023 2:51 PM EST documented in this encounter Functional Status Functional Status Response [...] No 11/13/2021 documented as of this encounter Progress Notes * Jigar Ramirez MD - 06/15/2023 2:55 PM EST Outpatient Consult Note Data Source: Patient, Epic record. Data Source: Patient, Epic record. 06/15/2023 2:55 PM Amish Gary Vlaiente [id number] 58 year old Patient Encounter: HEMATOLOGY/ONCOLOGY [facility] Cancer Diagnosis: Chronic lymphocytic leukemia Current Treatment: Observation Previous Treatment: Ibrutinib started 02/10/2021.On hold since 10/2021 because of the heart failure. Oncologic History : 57-year-old male presented to the ED on 10/29/2000 with increasing difficulty in breathing and hemoptysis. When EMS arrived after calling 911, he quickly decompensated and had to be intubated. EMS was able to intubate the patient successfully. He had blood test done which shows leukocytosis and WBCcount were 225 with 0 ANC and hemoglobin was 6 with normal platelet counts. CT scan of chest done which shows Bilateral groundglass and consolidative airspace opacities most pronounced within the lungs posteriorly. This favors a pneumonia. There are are also multiple small peripherally enhancing loculated gas and fluid collections within the consolidated left lung posteriorly. These likely represent intraparenchymal abscesses. Dominant abscess measures 3.9 cm, onsolidation within the left lung apex has an irregular appearance. This favors the pneumonia, Splenomegaly, mild supraclavicular, mediastinal, bilateral hilar, and upper abdominal lymphadenopathy. There was initial concern of ALL and patient was transferred to [facility] for further management. A bronchoscopy was preformed which showed strep anginosus. Peripheral smear revealed mature lymphocytes concerning for CLL. Joe + but no sign of hemolysis and haptoglobin was high. His course was complicated by MRSA bacteremia. He was able to be extubated eventually to . He was discharged on ceftriaxone and flagyl for necrotizing pneumonia and clindamycin for MRSA bacteremia. On the review of peripheral blood smear was consistent with atypical lymphocyte and had flow cytometry done which was consistent with the chronic lymphocytic leukemia/small lymphocytic lymphoma and it was negative for Lavina 70 and CD38 Flow cytometry analysis of whole blood demonstrates the presence of B-cell chronic lymphocytic leukemia (CLL)/small lymphocytic lymphoma (SLL). The disease is negative for ZAP70 and CD38. See Comment. COMMENT: The analysis is performed by multi-parameter flow cytometry. On CD45 versus side scatter distribution, the lymphoid population comprises approximately 96% of the total events, which contains a predominant population of monoclonal B-lymphoid cells of small to medium cells. The clonal B-lymphoid population is positive for CD45, CD19, CD20 (dim), CD5, CD23, and CD43, and reveals lambda light chain re striction in low intensity and the population of B cells is negative for FMC7, CD10, kappa light chains and other T cell markers tested from this study. The remaining cells in the lymphoid gate are benign T-cells. The remaining cells in the study are granulocytes. In addition, two prognostic markers (ZAP70 and CD38) are studied. The analytic results of CLL cellsare recorded in The Table below. Table: The analytic results of CLL cells for CD38 and ZAP70 Prognostic markers for B-CLL % of CLL cells Zap70 0 CD38 2 Combinatorial risk category Favorable CLL Ig VH status was me unmutated IGVH STATUS UNMUTATED Immunoglobulin levels IgG was normal, IgA was 38 and IgM was 12 FISH Analysis CLL: Results: Abnormal Interpretation: POSITIVE FOR TRISOMY 12 Normal results were observed with the 6, 11 (CCND1), 11 (VASQUEZ), 13, 14 (IgH), and 17 (TP53) probe sets. Last blood test was done on 12/10/2020 and shows WBC count of 91.627 hemoglobin 11.3 and platelet count 111. Creatinine was 0.66 and the rest of the electrolytes were in acceptable range. He used to smoke 2 packs per day until the admission to the hospital. He is smoking for about 20 years. He used to drink 4-5 beers per day but now drinking 1 beer a day. Denies any drug use. Family history significant for mother was diagnosed of lung cancer and she was smoker Interval History: He was admitted to hospital on 05/22/2023 and discharged on 06/11/2023 with the exacerbation of theCOPD and respiratory failure and was intubated. His past medical history is significant for COPD and the right-sided heart failure. His hemoglobin was 5 and he received total of 7 units of blood transfusion. Reticulocyte count was normal. Review of peripheral blood smear was negative for hemolysis.Patient was treated with IVIG and prednisone because of the pneumonia and was evaluated by fashion consultant selling. CT scan of the abdomen pelvis revealed splenomegaly which is stable with moderate gallbladder wall thickening/edema and stable lymphadenopathy. There was 2.5 cm density in the left lower lobe favors infection/inflammatory. He continues to be on oxygen and complaining of generalized weakness. Blood test done today showed WBC count of 37.82, hemoglobin 7.2 and platelet count 110. MCV and RDW all within normal limit. Creatinine was 1 and LFTs were normal LABS/IMAGING: Results for orders placed or performed in visit on 06/15/23 COMPREHENSIVE METABOLIC PANEL Result Value Ref Range BUN 17 6 - 20 mg/dL Creatinine 1.0 0.6 - 1.2 mg/dL Estimated Glomerular Filtration Rate >90 >=60 mL/min Sodium 140 135 - 146 mmol/L Potassium 4.4 3.5 - 5.1 mmol/L Chloride 101 98 - 107 mmol/L CO2 30 22 - 32 mmol/L Anion Gap 9 7 - 15 mmol/L Glucose 97 70 - 120 mg/dL Albumin 3.7 (L) 3.8 - 5.0 g/dL AST 14 10 - 50 U/L Alkaline Phosphatase 91 35 - 130 U/L Bilirubin, Total 1.0 <=1.2 mg/dL Calcium 8.6 8.4 - 10.2 mg/dL Protein 6.3 6.0 - 8.3 g/dL ALT 21 10 - 50 U/L CBC Result Value Ref Range WBC 37.82 (H) 4.00 - 10.80 K/uL RBC 2.34 4.50 - 5.25 M/uL HGB 7.3 (L) 14.0 - 16.8 g/dL HCT 24.4 (L) 40.0 - 48.4 % MCV 104.3 82.0 - 99.5 fL MCH 31.2 27.0 - 34.0 pg MCHC 29.9 32.0 - 36.0 g/dL RDW 16.4 11.5 - 15.5 % PLT 110 (L) 140 - 400 K/uL MPV 11.8 6.6 - 11.1 fL DIFFERENTIAL, TECHNOLOGIST REVIEW Result Value Ref Range WBC 37.82 (H) 4.00 - 10.80 K/uL Neutrophils % 4.0 (L) 40.0 - 75.0 % Lymphocytes % 94.0 (H) 18.0 - 42.0 % Monocytes % 1.0 1.0 - 11.0 % Eosinophils % 1.0 0.0 - 6.0 % Absolute Neutrophils 1.51 (L) 1.80 - 7.70 K/uL Absolute Lymphocytes 35.55 (H) 1.00 - 4.80 K/uL Absolute Monocytes 0.38 0.00 - 1.10 K/uL Absolute Eosinophils 0.38 0.00 - 0.70 K/uL nRBCs Reactive Lymphocytes Present (A) None Seen Smudge Cells Present (A) None Seen REVIEW OF SYSTEMS: General: No Fever, chills, night sweats HEENT: No change in visual acuity, blurred or double vision. No epistaxis, facial pain, nasal discharge or change in hearing. Denies dysphagia, no muscosal ulceration, or sores noted. Cardiovascular: No chest pain, GRAYSON, or palpitations Respiratory: Complain of shortness of breath, cough, No hemoptysis, or pleuritic chest pain Gastrointestinal: No abdominal pain, nausea, vomiting, diarrhea, rectal pain or bleeding Genitourinary: Denies Hematuria or dysuria Musculoskeletal: Generalized weakness and fatigue Psychiatric: No vegetative signs of depression Endocrine: No symptoms of hypothyroidism or hyperglycemia Hematologic: No bleeding or lymph nodes noted As mentioned above, all of the systems were reviewed in full and are unremarkable. Past Medical History: Diagnosis Date Necrotizing pneumonia ([facility]) 11/05/2020 Selective deficiency of immunoglobulin a (iga) ([facility]) 2023-06-15 Adding D80.2-Selective deficiency of immunoglobulin a (iga) ([facility]) Dx to History Septic shock ([facility]) 11/05/2020 Tobacco abuse Current Outpatient Medications Medication Sig Dispense Refill EPI E-Z PEN LASHONDA 1:1000 IJ as directed for beesting (Patient not taking: Reported on 06/15/2023) 2 3 Lidocaine HCl Urethral/Mucosal 2 % External Gel Apply topically to affected area as needed (penile pain). Apply to penis/urethra as needed for discomfort. (Patient not taking: Reported on 10/29/2022) 30 mL 0 oxygen IN GAS Use 1L on exertion (walking). Use 2L at night while asleep. 1 Each 0 EPINEPHrine 0.3 MG/0.3ML Injection Solution Auto-injector (Autoinjector) For a severe reaction: Inject in outer thigh following instructions on package and go to the Emergency room. 2 Each 3 Furosemide 80 MG Oral Tablet (Lasix) Take 1 Tablet by mouth in the morning and 1 Tablet in the evening. (Patient not taking: Reported on 06/15/2023) 90 Tablet 3 Omeprazole 20 MG Oral Capsule Delayed Release (PriLOSEC) Take 1 Capsule by mouth in the morning. 1 hour before the first meal of the day. (Patient not taking: Reported on 06/15/2023) 30 Capsule 11 Fluticasone-Salmeterol 230-21 MCG/ACT Inhalation Aerosol (Advair) Inhale 2 Puffs by mouth in the morning and 2 Puffs before bedtime. 12 g 11 Ventolin HFA 108 (90 Base) MCG/ACT Inhalation Aerosol Solution Inhale 2 Puffs by mouth every 4 hours as needed for Shortness of Breath or Wheezing. 18 g 3 Cyanocobalamin 500 MCG Oral Tablet Take 2 Tablets by mouth in the morning. Folic Acid 1 MG Oral Tablet Take 1 Tablet by mouth in the morning. Furosemide 80 MG Oral Tablet (Lasix) Take 1 Tablet by mouth in the morning. 90 Tablet 3 Tiotropium Huntley Monohydrate 18 MCG Inhalation Capsule (Spiriva HandiHaler) Inhale 1 Capsule by mouth in the morning. . Do not swallow capsule.. 90 Capsule 3 Fluticasone-Salmeterol 250-50 MCG/ACT Inhalation Aerosol Powder Breath Activated (Advair Diskus) Inhale 1 Puff by mouth in the morning and 1 Puff before bedtime. 3 Each 3 Albuterol Sulfate HFA 108 (90 Base) MCG/ACT Inhalation Aerosol Solution Inhale 2 Puffs by mouth every 6 hours as needed for Wheezing or Cough. 54 g 3 Folic Acid 1 MG Oral Tablet Take 1 Tablet by mouth in the morning. 90 Tablet 3 Vitamin B-12 1000 MCG Oral Tablet (Cyanocobalamin) Take 1 Tablet by mouth in the morning. 90 Tablet3 Omeprazole 20 MG Oral Capsule Delayed Release (PriLOSEC) Take 1 Capsule by mouth in the morning. 1 hour before the first meal of the day. 90 Capsule 3 No current facility-administered medications for this visit. Social History Tobacco Use Smoking status: Former Packs/day: 0.50 Years: 35.00 Additional pack years: 0.00 Total pack years: 17.50 Types: Cigarettes Smokeless tobacco: Former Types: Chew Quit date: 10/22/1982 Vaping Use Vaping Use: Never used Substance Use Topics Alcohol use: Yes Comment: 1-2 beers/month past year; previously 6 beers daily Drug use: Not Currently Review of patient's allergies indicates: Allergen Reactions Bee Stings Penicillins hives PHYSICAL EXAMINATION: General Appearance: Weak appearing patient BP 132/90 (BP Site: Left Arm, BP Position: Sitting, BP Cuff Size: Large) | Pulse 111 | Temp 37.2 C (98.9 F) (Tympanic) | Resp 16 | Ht 1.758 m (5' 9.21") | Wt 100.6 kg (221 lb 12.8 oz) | SpO2 92% | BMI 32.56 kg/m | BSA 2.22 m Vitals reviewed. HEENT: No oral or pharyngeal masses, ulceration or thrush noted, no sinus tenderness. Neck is supple with no thyromegaly or JVD noted. Lymph Nodes: No lymphadenopathy noted in the occipital, pre and post auricular, cervical, supra andinfraclavicular, axillary, epitrochlear, inguinal, and popliteal region. Lungs/Thorax: Decreased breath sounds bilaterally, no accessory muscles of respiration being used. Heart: Regular rate and rhythm, normal S1, S2 Abdomen: Soft, nontender, bowel sounds present, no appreciable hepatosplenomegaly, no palpable masses Extremeties: Good pulses bilaterally, no peripheral edema. ASSESSMENT: 58-year-old male presented to the ED with the increasing shortness of breath and hemoptysis and wasintubated. He had leukocytosis with the total WBC count of 225,000 with no neutrophil. There was concern of ALL and he was transferred to [facility] for further management. CT scan was done which shows the lymphadenopathy and splenomegaly and pneumonia. He had sepsis and MRSA bacteremia and was treated with antibiotics with improvement in the symptoms. Peripheral blood smear review and the flow cytometry is consistent with CLL/small cell lymphoma. Joe was positive but haptoglobin was high and LDH was normal. Further workup including CLL Ig VH was unmutated and CLL FSH ia POSITIVE FOR TRISOMY 12, Normal results were observed with the 6, 11 (CCND1), 11 (VASQUEZ), 13, 14 (IgH), and 17 (TP53) probe sets. He was started on ibrutinib with excellent response and normalization of his blood counts. He had issues with shortness of breath and the heart failure. Currently ibrutinib is on hold. He was admitted to the hospital with increasing shortness of breath and respiratory failure and wasintubated. Hemoglobin was low and received 7 units of blood transfusion and he will also receive IVIG and prednisone. Review of peripheral blood smear was negative for hemolysis and liver enzymes normalized. He complaining generalized weakness and continues to be on oxygen. Today his hemoglobin is 7 with normal LFTs and electrolytes. Platelet counts are 110. I have requested further hemolytic workup including retic count, LDH, haptoglobin, ferritin, iron screen, B12 andfolic acid and immunoglobulin level. The cause of anemia may be multifactorial including CLL, infection, medication, bleeding. He also had low-level vitamin 12 and received injection. The cause of anemia can multifactorial including infection, inflammation, bleeding, medication, CLL and underlying bone marrow failure. Discussed with the patient about diagnosis reviewed all the available blood test result with him. PLAN: As above. He will return clinic for follow-up in 5 weeks. He will have a CBC done on weekly basis. The patient voiced understanding of all of the above. All questions and concerns were addressed in an apparently satisfactory manner. Jigar Ramirez MD (This note was completed using the dictation program Fluency Direct. As such, there may be misspellings, word substitutions, or other variations that should not change the essence of the clinical content of this encounter note. If there is need for further clarification, please direct questions to me.) documented in this encounter Nursing Notes * Tiffany Escudero CMA - 06/15/2023 2:51 PM EST Patient identifed by name and birthdate Do you have any concerns about pain management for today's visit? Yes. Patient instructed to discuss pain concerns with provider during the visit today Living Will or Advance Directive for Health Care as noted on the problem list. [facility] is a way you can talk to your provider on line through e-mail. Would you like to sign up? I can activate it for you? NO Filed Vitals: 06/15/23 1451 BP: 132/90 Pulse: 111 Resp: 16 Temp: 37.2 C (98.9 F) TempSrc: Tympanic SpO2: 92% Weight: 100.6 kg (221 lb 12.8 oz) Height: 1.758 m (5' 9.21") Patient was instructed to not get up on the exam table/exam chair until directed and assisted by their provider; patient is to remain seated in the chair/ wheelchair/ exam table/ exam chair for fall prevention and safety reasons. Patient is aware to have assistance to step down off exam table/exam chair with personnel. Patient voiced full comprehension of instructions. documented in this encounter Plan of Treatment Upcoming Encounters Date Type Department Care Team (Late st Contact Info) Description 09/14/2023 2:15 PM EDT Office Visit Hematology/Oncology [facility] [place] [address] [place] [id number] Jigar Ramirez MD [address] [place] [address] Scheduled Orders Name Type Priority Associated Diagnoses Orde r Schedule HAPTOGLOBIN Lab Routine CLL (chronic lymphocytic leukemia) (HCC) Thrombocytopenia (HCC) Ordered: 06/15/2023 RETICULOCYTE PANEL Lab Routine CLL (chronic lymphocytic leukemia) (HCC) Thrombocytopenia (HCC) Ordered: 06/15/2023 VITAMIN B12 Lab Routine CLL (chronic lymphocytic leukemia) (HCC) Thrombocytopenia (HCC) Ordered: 06/15/2023 FOLIC ACID Lab Routine CLL (chronic lymphocytic leukemia) (HCC) Thrombocytopenia (HCC) Ordered: 06/15/2023 FERRITIN Lab Routine CLL (chronic lymphocytic leukemia) (HCC) Thrombocytopenia (HCC) Ordered: 06/15/2023 IRON SCREEN, INCLUDING TIBC Lab Routine CLL (chronic lymphocytic leukemia) (HCC) Thrombocytopenia (HCC) Ordered: 06/15/2023 IMMUNOGLOBULIN QUANTITATIVE Lab Routine CLL (chronic lymphocytic leukemia) (HCC) Thrombocytopenia (HCC) Ordered: 06/15/2023 CBC WITH WBC DIFFERENTIAL Lab Routine CLL (chronic lymphocytic leukemia) (HCC) Thrombocytopenia (HCC) Every Week for 12 Occurrences starting 06/15/2023 until 06/15/2024 CBC WITH WBC DIFFERENTIAL Lab Routine CLL (chronic lymphocytic leukemia) (HCC) Thrombocytopenia (HCC) Expected: 07/13/2023, Expires: 10/11/2023 COMPREHENSIVE METABOLIC PANEL Lab Routine CLL (chronic lymphocytic leukemia) (HCC) Thrombocytopenia (HCC) Expected: 07/13/2023, Expires: 10/11/2023 LD Lab Routine CLL (chronic lymphocytic leukemia) (HCC) Thrombocytopenia (HCC) Expected: 07/13/2023, Expires: 10/11/2023 Scheduled Procedures Name Priority Associated Diagnoses Date/Ti [...] 64 Years) (2 - PCV) 03/20/2022 03/20/2021 Influenza Vaccine (FLU shot) (#1) 2023 O2 ASSESSMENT COMPLETED IN PAST YEAR FOR COPD 12/16/2023 12/15/2022 GFR 06/15/2024 06/15/2023, 12/21, 10/29/2022, Additional history exists COLONOSCOPY-EVERY 3 YRS AGES 18-100 01/22/2025 01/22/2022, 01/22/2022 Diabetes Screening 06/15/2026 06/15/2023, 0 01/03/2023, 10/29/2022, Additional history exists Lipid Panel 10/30/2027 10/29/2022, [...] Not on filedocumented as of this encounter Visit Diagnoses Diagnosis CLL (chronic lymphocytic leukemia) (HCC)- Primary Chronic lymphoid leukemia, without mention of having achieved remission Thrombocytopenia (HCC) Thrombocytopenia, unspecified documented in this encounter Advance Directives Latest [...] and were consensually agreed upon. Care Teams Scarifier Operator Relationship Specialty Start Date End Date Stas Ardon MD [address] [place] [facility] [place] [address] PCP - General Family Medicine 12/11/21 documented as of this encounter
--- OUTSIDE RECORDS SUMMARY | 2023-07-04 15:30 | External Medical Summary | Summary of Care ---
Author Name Unknown Organization [facility] [address] [facility] [address] Phone [phone] Care Team Providers Care Manager Medical Affairs Name Role Phone Stas Ardon MD Primary Care Provider [phone] Encounter Details Date Type Department Care Team (Late st Contact Info) Description 06/17/2023 Orders Only PATIENT PORTAL DO NOT DELETE THIS DEPT USED BY [place] [id number] Allergies Active Allergy Reactions Criticality Noted Date Comments Bee Stings 10/23/1998 Penicillins 10/23/1998 hives documented as of this encounter (statuses as of 06/17/2023) Medications Medication Sig Dispensed Refills Start Date [...] COPD, group D, by GOLD 2017 classification ([facility]) Inhale 2 Puffs by mouth in the [...] Oral Tablet (Lasix)Indications:H eart failure, chronic, right-sided ([facility]) Take 1 Tablet by mouth in the morning. 90 Tablet 3 06/15/2023 Active Tiotropium [place] Monohydrate 18 MCG Inhalation Capsule (Spiriva HandiHaler)Indicatio ns:COPD, group D, by GOLD 2017 classification ([facility]) Inhale 1 Capsule by mouth in the morning. . Do not swallow capsule.. 90 Capsule 3 06/15/2023 Active Fluticasone-Salmeter ol 250-50 MCG/ACT Inhalation Aerosol Powder Breath Activated (Advair Diskus)Indications:C OPD, group D, by GOLD 2017 classification ([facility]) Inhale 1 Puff by mouth in the morning and 1 Puff before bedtime. 3 Each 3 06/15/2023 Active Albuterol Sulfate HFA 108 (90 Base) MCG/ACT Inhalation Aerosol SolutionIndications: COPD, group D, by GOLD 2017 classification ([facility]) Inhale 2 Puffs by mouth every 6 hours as needed for Wheezing or Cough. 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 Acute respiratory failure 11/09/2020 Septic shock 11/05/2020 12/04/2020 Necrotizing pneumonia 11/05/20202020 documented as of this encounter (statuses as of 06/17/2023) Immunizations Name Administration Dates Next Due COVID-19, [...] as of this encounter Plan of Treatment Upcoming Encounters Date Type Department Care Team (Late st Contact Info) Description 09/14/2023 2:15 PM EDT Office Visit Hematology/Oncology [place] [facility] [address] [facility] [place] [address] Jigar Ramirez MD [address] [facility] [place] [address] Scheduled Procedures Name Priority Associated Diagnoses Date/Ti [...] and were consensually agreed upon. Care Teams Manager Medical Affairs Relationship Specialty Start Date End Date Stas Ardon MD [address] [place] [address] PCP - General Family Medicine 12/11/21 documented as of this encounter
--- OUTSIDE RECORDS SUMMARY | 2023-07-04 15:30 | External Medical Summary | Summary of Care ---
Author Name Unknown Organization [facility] Address [address] [place] [address] Phone [phone] Care Team Providers Care Publication Director Name Role Phone Stas Ardon MD Primary Care Provider Encounter Details Date Type Department Care Team (Late st Contact Info) Description 2023 Telephone Hematology/Oncology Treatment, [place] [address] [place] [address] Jigar Ramirez MD [address] [place] [address] Allergies Active Allergy Reactions Criticality Noted Date Comments Bee Stings 10/23/1998 Penicillins 10/23/1998 hives documented as of this encounter (statuses as of 2023) Medications Medication Sig Dispensed Refills Start Date [...] COPD, group D, by GOLD 2017 classification ([facility]) Inhale 2 Puffs by mouth in the morning and 2 Puffs before bedtime. 12 g 11 11/01/2022 Active Spiriva HandiHaler 18 MCG Inhalation Capsule (tiotropium bromide)Indications: COPD, group D, by GOLD 2017 classification ([facility]) Inhale 1 Capsule by mouth in the morning. . Do not swallow capsule.. 30 Capsule 11 11/01/2022 Active Ventolin HFA 108 (90 Base) MCG/ACT Inhalation Aerosol Solution Inhale 2 Puffs by mouth every 4 hours as needed for Shortness of Breath or Wheezing. 18 g 3 11/01/2022 Active documented as of this encounter (statuses as of 2023) Active Problems Problem Noted Date Diagnosed Date [...] as of this encounter (statuses as of 2023) Resolved Problems Problem Noted Date Diagnosed Date Resolved Date Scrotal edema 11/13/2021 11/19/2021 Peripheral edema 11/13/2021 11/19/2021 Acute respiratory failure 11/09/2020 Septic shock 11/05/2020 12/04/2020 Necrotizing pneumonia 11/05/20202020 documented as of this encounter (statuses as of 2023) Immunizations Name Administration Dates Next Due COVID-19, [...] encounter Miscellaneous Notes * Telephone Encounter - Erum Kilgore OSA - 2023 12:48 PM EST Per nursing scheduled appts for 06/15/23. Done. * Telephone Encounter - Alysha Juarez RN - 2023 12:19 PM EST Patient currently admitted at [facility] since 05/22/23 for acute and chronic respiratory failure. Plan is for discharge soon, recommended to have lab work/ see Dr Ramirez early next week to have blood work checked as he has needed transfusions while admitted. Scheduling: please add appts for next week on Sunday 07/16 - labs "CBCd, CMP, LDH" at 2:15 - Dr Ramirez at 2:45 (there is an opening) I let [facility] at [facility] know, but please also call and leave voicemail for patient with appt times. Thanks! documented in this encounter Plan of Treatment Upcoming Encounters Date Type Department Care Team (Late st Contact Info) Description 06/15/2023 11:00 AM EST [facility] [address] [facility] [place] [phone] Stas Ardon MD [address] [facility] [place] [phone] 06/15/2023 2:10 PM EST Laboratory Laboratory [facility] [place] [address] [facility] [id number] Stefanie Atkins [facility] [address] [facility] [place] [address] 06/15/2023 2:45 PM EST Office Visit Hematology/Oncology [facility] Milly [place] [address] [facility] [place] [address] Jigar Ramirez MD [address] [facility] [place] [address] Scheduled Procedures Name Priority Associated Diagnoses Date/Ti [...] and were consensually agreed upon. Care Teams Publication Director Relationship Specialty Start Date End Date Stas Ardon MD [address] [place] [address] PCP - General Family Medicine 12/11/21 documented as of this encounter
--- OUTSIDE RECORDS SUMMARY | 2023-07-04 15:30 | External Medical Summary | Summary of Care ---
Author Name Unknown Organization [facility] Address [address] [place] [address] Phone [phone] Care Team Providers Care Mathematics Academic Chair Name Role Phone Stas Ardon MD Primary Care Provider [phone] Reason for Visit * Reason Comments Outpatient Testing Encounter Details Date Type Department Care Team (Late st Contact Info) Description 06/15/2023 2:10 PM EST Laboratory Laboratory [facility] [address] [place] [address] [facility] [address] [place] [address] CLL (chronic lymphocytic leukemia) (HCC); Heart failure, chronic, right-sided (HCC) Allergies Active Allergy Reactions Criticality Noted [...] go to the Emergency room. 2 Each 10/29/2022 Active Furosemide 80 MG Oral Tablet [...] D, by GOLD 2017 classification ([facility]) Inhale 2 Puffs by mouth in [...] Oral Tablet (Lasix)Indications:H eart failure, chronic, right-sided ([facility]) Take 1 Tablet by mouth in the morning. 90 Tablet 3 06/15/2023 Active Tiotropium [place] Monohydrate 18 MCG Inhalation Capsule (Spiriva HandiHaler)Indicatio ns:COPD, group D, by GOLD 2017 classification ([facility]) Inhale 1 Capsule by mouth in the morning. . Do not swallow capsule.. 90 Capsule 06/15/2023 Active Fluticasone-Salmeter ol 250-50 MCG/ACT Inhalation Aerosol Powder Breath Activated (Advair Diskus)Indications:C OPD, group D, by GOLD 2017 classification ([facility]) Inhale 1 Puff by mouth in the morning and 1 Puff before bedtime. 3 Each 06/15/2023 Active Albuterol Sulfate HFA 108 (90 Base) MCG/ACT Inhalation Aerosol SolutionIndications: COPD, group D, by GOLD 2017 classification ([facility]) Inhale 2 Puffs by mouth every 6 [...] 06/15/2023 2:45 PM EST Office Visit Hematology/Oncology [facility] At[facility] [place] [address] [facility] [place] [address] Jigar Ramirez MD [address] [facility] [place] [address] Arrived Pending Results Name Type Priority Associated Diagnoses Date /Time CBC WITH WBC DIFFERENTIAL Lab Routine CLL (chronic lymphocytic leukemia) ([facility]) 06/15/2023 2:05 PM EST COMPREHENSIVE METABOLIC PANEL Lab Routine CLL (chronic lymphocytic leukemia) ([facility]) 06/15/2023 2:05 PM EST LD Lab Routine CLL (chronic lymphocytic leukemia) ([facility]) 06/15/2023 2:05 PM EST CBC Lab Routine CLL (chronic lymphocytic leukemia) ([facility]) 06/15/2023 2:05 PM EST DIFFERENTIAL, AUTOMATED Lab Routine CLL (chronic lymphocytic leukemia) ([facility]) 06/15/2023 2:05 PM EST Scheduled Procedures Name Priority Associated Diagnoses Date/Ti [...] Visit Diagnoses Diagnosis CLL (chronic lymphocytic leukemia) (HCC) Chronic lymphoid leukemia, without mention of having achieved remission Heart failure, chronic, right-sided (HCC) documented in this encounter Advance Directives Latest [...] and were consensually agreed upon. Care Teams Mathematics Academic Chair Relationship Specialty Start Date End Date Stas Ardon MD [address] [place] [address] PCP - General Family Medicine 12/11/21 documented as of this encounter
--- OUTSIDE RECORDS SUMMARY | 2023-07-04 15:30 | External Medical Summary | Summary of Care ---
Author Name Unknown Organization [facility] Address [address] [facility] [place] [address] Phone [phone] Care Team Providers Care Medical Claims Processor Name Role Phone Stas Ardon MD Primary Care Provider [phone] Encounter Details Date Type Department Care Team (Late st Contact Info) Description 05/24/2023 Result Scan Unspecified Department <No scans attached> Allergies Active Allergy Reactions Criticality Noted Date [...] Procedure Name Priority Date/Time Associated Diagnosis Comments PROCEDURE SCANNED RESULT 05/24/2023 documented in this encounter Results * PROCEDURE SCANNED RESULT (05/24/2023) 05/24/2023 No Physician Data Unknown SURGERY documented in this encounter Advance Directives Latest [...] and were consensually agreed upon. Care Teams Medical Claims Processor Relationship Specialty Start Date End Date Stas Ardon MD [address] [place] [address] PCP - General Family Medicine 12/11/21 documented as of this encounter
--- OUTSIDE RECORDS SUMMARY | 2023-07-04 15:30 | External Medical Summary | Summary of Care ---
Author Name Unknown Organization [facility] Address [address] [place] [address] Phone [phone] Care Team Providers Care Parachute Line Tier Name Role Phone Stas Ardon MD Primary Care Provider Reason for Referral * Medication Prior Authorization - Pending Review Specialty Diagnoses / Procedures Referred By Contac t Referred To Contact Diagnoses COPD, group D, by GOLD 2017 classification (HCC) Stas Ardon MD [address] [place] [address] Referral ID Status Reason Start Date Expiration Date V isits Requested Visits Authorized [id number] Pending Review 999 999 * Evaluate & Treat - Unlimited Visits (Within 10 days (routine)) - Pending Review Specialty Diagnoses / Procedures Referred By Contac t Referred To Contact Physical Therapy / Physical Medicine And Rehab Diagnoses Physical debility Stas Ardon MD [address] [place] [address] Referral ID Status Reason Start Date Expiration Date Visits Requested Visits Authorized [id number] Pending Review Specialty Services Required 06/15/2023 999 999 Question Answer Referral Priority Within 10 days (routine) Where should this appointment be scheduled? [facility] Comments Generalized debility. Prolonged hospitalization on ventilator. Reason for Visit * Reason Comments Hospital Follow-Up Tinnitus in bilatera l ears Would like a handy cap form filled out Encounter Details Date Type Department Care Team (Latest Contact Info) Description 06/15/2023 11:00 AM EST Office Visit [facility] [address] [place] [address] Stas Ardon MD [address] [place] [address] HTN, goal below 130/80*; CLL (chronic lymphocytic leukemia) ([facility]); COPD, group D, by GOLD 2017 classification ([facility]); Chronic hypoxemic respiratory failure ([facility]); Heart failure, chronic, right-sided ([facility]); Thrombocytopenia ([facility]); Physical debility; Gastroesophageal reflux disease, unspecified whether esophagitis present; Nutrition impaired due to limited access to nutrition related supplies Allergies Active Allergy Reactions Criticality Noted Date [...] Active EPINEPHrine 0.3 MG/0.3ML Injection Solution Auto-injector (Autoinjector)Indic ations:Bee sting allergy For a severe reaction: Inject in outer thigh following instructions on package and go to the Emergency room. 2 Each 3 10/29/2022 Active Furosemide 80 MG Oral Tablet (Lasix)Indications: HTN, goal below 130/80 Take 1 Tablet by mouth in the morning and 1 Tablet in the evening. 90 Tablet 3 10/29/2022 Active Omeprazole 20 MG Oral Capsule Delayed Release (PriLOSEC)Indicatio ns:Esophageal pain Take 1 Capsule by mouth in the morning. 1 hour before the first meal of the day. 30 Capsule 10/29/2022 Active Additional Information Patient not taking.Reported on 06/15/2023 Fluticasone-Salmete rol 230-21 MCG/ACT Inhalation Aerosol (Advair)Indications :COPD, group D, by GOLD 2017 classification ([facility]) Inhale 2 Puffs by mouth in the [...] 0 Active Furosemide 80 MG Oral Tablet (Lasix)Indications: Heart failure, chronic, right-sided ([facility]) Take 1 Tablet by mouth in the morning. 90 Tablet 06/15/2023 Active Tiotropium Strathcona Monohydrate 18 MCG Inhalation Capsule (Spiriva HandiHaler)Indicati ons:COPD, group D, by GOLD 2017 classification ([facility]) Inhale 1 Capsule by mouth in the morning. . Do not swallow capsule.. 90 Capsule 06/15/2023 Active Fluticasone-Salmete rol 250-50 MCG/ACT Inhalation Aerosol Powder Breath Activated (Advair Diskus)Indications: COPD, group D, by GOLD 2017 classification ([facility]) Inhale 1 Puff by mouth in the morning and 1 Puff before bedtime. 3 Each 06/15/2023 Active Albuterol Sulfate HFA 108 (90 Base) MCG/ACT Inhalation Aerosol SolutionIndications :COPD, group D, by GOLD 2017 classification ([facility]) Inhale 2 Puffs by mouth every 6 hours as needed for Wheezing or Cough. 54 g 06/15/2023 Active Folic Acid 1 MG Oral TabletIndications:N utrition impaired due to limited access to nutrition related supplies Take 1 Tablet by mouth in the morning. 90 Tablet 06/15/2023 Active Vitamin B-12 1000 MCG Oral Tablet (Cyanocobalamin)Ind ications:Nutrition impaired due to limited access to nutrition related supplies Take 1 Tablet by mouth in the morning. 90 Tablet 3 06/15/2023 Active Omeprazole 20 MG Oral Capsule Delayed Release (PriLOSEC)Indicatio ns:Gastroesophageal reflux disease, unspecified whether esophagitis present Take 1 Capsule by mouth in the morning. 1 hour before the first meal of the day. 90 Capsule 3 06/15/2023 Active Spiriva HandiHaler 18 MCG Inhalation Capsule (tiotropium bromide)Indications :COPD, group D, by GOLD 2017 classification ([facility]) Inhale 1 Capsule by mouth in the morning. . Do not swallow capsule.. 30 Capsule 11 11/01/2022 06/15/19 Discontinu ed(Refill) documented as of this encounter (statuses as [...] Sign Reading Time Taken Comments Blood Pressure 140/58 06/15/2023 10:48 AM EST Pulse 102 06/15/2023 10:48 AM EST Temperature 36.7 C (98 F) 06/15/2023 10:48 AM EST Respiratory Rate 19 06/15/2023 10:48 AM EST Oxygen Saturation 97% 06/15/2023 10:48 AM EST Inhaled Oxygen Concentration - - Weight 102 kg (224 lb 12.8 oz) 06/15/2023 10:48 AM EST Height - - Body Mass Index 32.99 02/02/2023 8:43 AM EDT documented in this encounter Functional Status Functional [...] as of this encounter Progress Notes * Stas Ardon MD - 06/15/2023 11:29 AM EST Subjective: Amish Valiente is a 58 year old male. Chief Complaint Patient presents with Hospital Follow-Up Tinnitus in bilateral ears Would like a handy cap form filled out HPI: 58-year-old seen today as follow-up after recent prolonged [facility] hospitalization from 2022 to 2019. I last saw him in on outpatient basis in December. He had had a life-threatening pneumonia in July of 2022 requiring prolonged hospitalization at [facility]. On this occasion he had called for paramedics because of progressive shortness of breath. He had been on continuous 3 L nasal cannula oxygen but despite that he was markedly more dyspneic. He was intubated at the scene or in route to [facility]. He was felt to have had respiratory failuresecondary to a combination COPD exacerbation and URI and multi lobar pneumonia. Tracheostomy was performed on May 28. Endotracheal tube remained in place until 2023. He was treated with IV Levaquin and Zosyn. Additional problems included significant anemia with admission hemoglobin 6.4. He received 7 units of blood initially and later in the hospitalization 2 additional units. At discharge his hemoglobin was 7.4. It is felt that this is in large part related to underlying CLL. 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 Received IVIG on 1 occasion (06/02/2023). CT scan of the abdomen was done which showed changes consistent with esophagitis . There also was a question of abnormal gallbladder but this was felt all to be likely due to prolonged tube feedings. He was seen by Hematology. Before discharge they recommended prednisone 100 mg daily for 4 days. Two days were taken in the hospital and he is taken 2 days since discharge and finished it. CT of the chest did show 2.5 cm density in the left lower lobe in it was mentioned that this likelywas an infectious process but follow-up was felt to be recommended. He did suffer acute kidney injury which was felt secondary to sepsis . At the time of discharge he was to go back on Lasix. It was recommended at discharge he use Lasix 80 mg twice a day as that is a dose that he had used 9 months earlier but he actually has not been using any Lasix for a couple months before [facility] hospitalization and had not use twice a day Lasix in many months. He was to go back on his same inhalers including Spiriva Advair and albuterol BT actually did not receive prescriptions and did not have any at home. A dditionally because of the concern for esophagitis he was to use omeprazole but again was not provided with that prescription. Physical therapy was recommended and was to be arranged prior to discharge but he has not heard anything about physical therapy. Patient Active Problem List Diagnosis Code Toxic effect of venom T63.91XA CLL (chronic lymphocytic leukemia) ([facility]) C91.10 Tobacco abuse Z72.0 COPD, group D, by GOLD 2017 classification ([facility]) J44.9 Lung nodules R91.8 Obesity, Class II, BMI 35-39.9, isolated (see actual BMI) E66.9 Selective deficiency of immunoglobulin m (igm) ([facility]) D80.4 Acute on chronic right-sided heart failure ([facility]) I50.813 HTN, goal below 130/80 I10 Dyslipidemia E78.5 Heart failure, chronic, right-sided ([facility]) I50.812 Chronic hypoxemic respiratory failure ([facility]) J96.11 History of pneumonia Z87.01 Thrombocytopenia ([facility]) D69.6 Current Outpatient Medications Medication Sig Dispense Refill oxygen IN GAS Use 1L on exertion (walking). Use 2L at night while asleep. 1 Each 0 EPINEPHrine 0.3 MG/0.3ML Injection Solution Auto-injector (Autoinjector) For a severe reaction: Inject in outer thigh following instructions on package and go to the Emergency room. 2 Each 3 Fluticasone-Salmeterol 230-21 MCG/ACT Inhalation Aerosol (Advair) Inhale [...] in the morning. 90 Tablet 3 Tiotropium Strathcona Monohydrate 18 MCG Inhalation Capsule (Spiriva HandiHaler) [...] meal of the day. 90 Capsule 3 EPI E-Z PEN LASHONDA 1:1000 IJ as directed for beesting (Patient not taking: Reported on 06/15/2023) 2 3 Lidocaine HCl Urethral/Mucosal 2 % External Gel Apply topically to affected area as needed (penile pain). Apply to penis/urethra as needed for discomfort. (Patient not taking: Reported on 10/29/2022) 30 mL 0 Furosemide 80 MG Oral Tablet (Lasix) Take 1 Tablet by mouth in the morning and 1 Tablet in the evening. (Patient not taking: Reported on 06/15/2023) 90 Tablet 3 Omeprazole 20 MG Oral Capsule Delayed Release (PriLOSEC) Take 1 Capsule by mouth in the morning. 1 hour before the first meal of the day. (Patient not taking: Reported on 06/15/2023) 30 Capsule 11 No current facility-administered medications for this visit. Review of patient's allergies indicates: Allergen Reactions Bee Stings Penicillins hives Objective: BP 140/58 | Pulse 102 | Temp 36.7 C (98 F) | Resp 19 | Wt 102 kg (224 lb 12.8 oz) | SpO2 97% | BMI 32.99 kg/m | BSA 2.23 m Physical Exam: CONST: alert, pleasant, no acute distress. He has his nasal cannula oxygen set at 3 L is using it continuously HEAD: normocephalic, atraumatic Eyes - PERRLA, EOM'I OROPHARYNX: clear, no swelling or erythema, moist CV: Slightly rapid rate and regular rhythm, no murmur CHEST: clear to auscultation bilaterally, no rales or wheezing ABD: soft, non tender, non distended, no masses or hepatosplenomegaly EXT: Trace ankle edema at most, no joint swelling or deformities, NEURO: AAOx3, no gross focal deficits, cerebellar signs normal, affect appropriate MENTAL STATUS: no evidence of thought disorder, no delusional thought, no evidence of paranoia, thought is non-tangential. SKIN: no rash or significant lesions ASSESSMENT/PLAN: HTN, goal below 130/80 (Primary) - COMPREHENSIVE METABOLIC PANEL; Future; Expected date: 06/15/2023 CLL (chronic lymphocytic leukemia) ([facility])-he has follow-up with Dr. Ramirez in Hematology this afternoon in will have blood work to include CBC and comprehensive metabolic panel. As noted he is finishedthe boost of prednisone. Anticipate his hemoglobin is going to again be quite low COPD, group D, by GOLD 2017 classification ([facility]) - Tiotropium Strathcona Monohydrate 18 MCG Inhalation Capsule (Spiriva HandiHaler); Inhale 1 Capsule by mouth in the morning. . Do not swallow capsule.. - Fluticasone-Salmeterol 250-50 MCG/ACT Inhalation Aerosol Powder Breath Activated (Advair Diskus);Inhale 1 Puff by mouth in the morning and 1 Puff before bedtime. - Albuterol Sulfate HFA 108 (90 Base) MCG/ACT Inhalation Aerosol Solution; Inhale 2 Puffs by mouth every 6 hours as needed for Wheezing or Cough. These 3 inhalers were renewed today Chronic hypoxemic respiratory failure (HCC)-she is remain on 3 L nasal cannula continuous Heart failure, chronic, right-sided (HCC)-will restart furosemide at 80 mg daily. I do not think heneeds Um 80 mg twice a day and we may be able to lower his Lasix to 40 mg a day. He will need a blood test primarily to look at potassium level about a week after starting Lasix - Furosemide 80 MG Oral Tablet (Lasix); Take 1 Tablet by mouth in the morning. - BASIC METABOLIC PANEL; Future; Expected date: 06/15/2023 Thrombocytopenia (HCC)-follow-up with Hematology Physical debility-arrange home physical therapy with energy therapy - PHYSICAL THERAPY REFERRAL OP Gastroesophageal reflux disease, unspecified whether esophagitis present - Omeprazole 20 MG Oral Capsule Delayed Release (PriLOSEC); Take 1 Capsule by mouth in the morning.1 hour before the first meal of the day. Nutrition impaired due to limited access to nutrition related supplies - Folic Acid 1 MG Oral Tablet; Take 1 Tablet by mouth in the morning. - Vitamin B-12 1000 MCG Oral Tablet (Cyanocobalamin); Take 1 Tablet by mouth in the morning. Abnormal CT scan with findings of a 2.5 density left lower lobe. He will need follow-up CT scan Um in a few months' time. [employer] application was completed. Check-out note: [facility] for home PT See back in 1 month 55 minutes were spent in reviewing hospital records and chart records and evaluation of patient's clinical status today and review of recommendations and orders. Stas Ardon MD documented in this encounter Nursing Notes * Caitlyn Norton LPN - 06/15/2023 10:54 AM EST The patient has been properly identified by confirmation of name and date of . Chief Complaint Patient presents with Hospital Follow-Up Tinnitus in bilateral ears Would like a handy cap form filled out documented in this encounter Plan of Treatment Upcoming Encounters Date Type Department Care Team (Late st Contact Info) Description 06/15/2023 2:10 PM EST Laboratory Laboratory [facility] Edilberto Atkins [address] [place] [id number] [place] [place] [id number] 06/15/2023 2:45 PM EST Office Visit Hematology/Oncology Camryn Atkins [place] [address] [facility] [place], [place] [address] Jigar Ramirez MD [address] [facility] [place] [address] Scheduled Orders Name Type Priority Associated Diagnoses Orde r Schedule BASIC METABOLIC PANEL Lab Routine Heart failure, chronic, right-sided (HCC) Expected: 06/15/2023 (Approximate), Expires: 06/14/2024 Scheduled Procedures Name Priority Associated Diagnoses Date/Ti me COLONOSCOPY FLEXIBLE PROXIMAL DIAGNOSTIC Recall History of colon polyps Scheduled Referrals Name Type Priority Associated Diagnoses Orde r Schedule PHYSICAL THERAPY REFERRAL OP Referral Within 10 days (routine) Physical debility Ordered: 06/15/2023 Health Maintenance Due Date Last Done Comments [...] as of this encounter Visit Diagnoses Diagnosis HTN, goal below 130/80- Primary Unspecified essential hypertension CLL (chronic lymphocytic leukemia) (HCC) Chronic lymphoid leukemia, without mention of having achieved remission COPD, group D, by GOLD 2017 classification (HCC) Chronic hypoxemic respiratory failure (HCC) Chronic respiratory failure Heart failure, chronic, right-sided (HCC) Thrombocytopenia (HCC) Thrombocytopenia, unspecified Physical debility Debility, unspecified Gastroesophageal reflux disease, unspecified whether esophagitis present Nutrition impaired due to limited access to nutrition related supplies documented in this encounter Advance Directives Latest [...] and were consensually agreed upon. Care Teams Parachute Line Tier Relationship Specialty Start Date End Date Stas Ardon MD [address] [place] [address] PCP - General Family Medicine 12/11/21 documented as of this encounter"
[2023-07-04] MEDS ORDERED: SUCCINYLCHOLINE CHLORIDE 20 MG/ML 10 ML VIAL IV ONE (15:47)
[2023-07-04] MEDS ORDERED: ETOMIDATE 2 MG/ML 20 ML VIAL IV ONE (15:47)
--- NOTE | 2023-07-04 17:05 | XRay Report ---
SINGLE VIEW CHEST CLINICAL HISTORY: Endotracheal tube repositioning. FINDINGS: 2 AP, portable, upright chest radiographs are compared to study dated 07/04/2023 and correla debi with chest CT dated 05/22/2023. Endotracheal tube has been repositioned. The tip now projects jesus manuel roximately 5.5 cm above the melani. An enteric tube has been placed. The tip projects below the diaph ragm over the mid stomach. The cardiomediastinal silhouette is top normal for projection. There is pu lmonary vascular congestion. Asymmetric multifocal airspace opacities are similar to today's prior ex amination. This is greatest in the right lung. Small pleural effusions are suspected. No pneumothorax is seen. The bony thorax is grossly intact. IMPRESSION: 1. Lines and tubes as above. 2. Asymmetric multifocal airspace opacities are again seen throughout both lungs. This represent pulm onary edema and/or multifocal pneumonia, and this is similar to today's earlier examination. 3. There is pulmonary vascular congestion. ACT 112: Negative or not required by law. Electronically signed by: Leo Marcial M.D. 07/04/2023 5:04 PM
[2023-07-04 17:46] LABS: Hematocrit (blood only) 20.8 % (42.0-52.0); Hemoglobin 6.1 g/dl (14.0-18.0); Mean Corpuscular Hemoglobin 31.4 pg (25.0-34.0); Mean Corpuscular Hgb Conc 29.3 g/dL (32.0-36.0); Mean Corpuscular Volume 107.2 fL (80.0-100.0); Mean Platelet Volume 11.8 fL (9.4-12.4); Nucleated RBC # (auto) 0.14 K/uL (0.00-0.12); Nucleated RBC % (auto) 0.3 %; Platelet Count 95 K/uL (130-400); Polychromasia 1+; RDW Coefficient of Variation 19.8 % (11.5-14.5); RDW Standard Deviation 73.9 fL (36.4-46.3); Red Blood Count 1.94 M/uL (4.70-6.10); Smudge Cells Present; Stomatocytes 1+; White Blood Count 44.61 K/ul (4.8-10.8)
[2023-07-04] MEDS ORDERED: FUROSEMIDE INJ 20 MG/2 ML VIAL IV ONE (18:02)
[2023-07-04 18:14] LABS: ALC (manual) 42.83 K/uL (1.2-3.4); ANC (manual) 0.45 K/uL (1.4-6.5); Lymphocytes # (manual) 42.83 K/uL (1.2-3.4); Lymphocytes % (manual) 96 %; Monocytes # (manual) 1.34 K/uL (0.11-0.59); Monocytes % (manual) 3 %; Neutrophils # (manual) 0.45 K/uL (1.40-6.50); Neutrophils % (manual) 1 %
[2023-07-04] MEDS: PROPOFOL BOLUS FROM BAG IV PRN (19:36)
[2023-07-04] MEDS: BUDESONIDE 0.25 MG/2 ML VIAL (PULMICORT) NEB SCH (20:31)
[2023-07-04] MEDS: FORMOTEROL 20 MCG/2 ML VIAL INH SCH (20:31)
[2023-07-04] MEDS ORDERED: Nursing to Pharmacy Communication SCH (21:00)
[2023-07-04] MEDS: CEFEPIME 2,000 MG in SYRINGE 0 ML IV SCH (21:02)
[2023-07-04] MEDS: FUROSEMIDE INJ 20 MG/2 ML VIAL IV SCH (21:29)
--- NOTE | 2023-07-04 21:58 | Electrocardiogram Report ---
Test Reason : Blood Pressure : / mmHG Vent. Rate : 113 BPM Atrial Rate : 113 BPM P-R Int : 170 ms QRS Dur : 102 ms QT Int : 330 ms P-R-T Axes : 074 089 058 degrees QTc Int : 452 ms Sinus tachycardia Nonspecific ST abnormality Abnormal ECG When compared with ECG of 26-JUN-2022 00:32, Criteria for Septal infarct are no longer Present Nonspecific T wave abnormality no longer evident in Lateral leads Confirmed by Jase Smith ([id number] on 07/04/2023 9:58:39 PM Referred By: REFERRED SELF Confirmed By:Jase Smith
[2023-07-05 04:02] LABS: BUN Creatinine Ratio 20.6 (10-20); Calcium 8.1 mg/dl (8.6-10.3); Creatinine Clr Calc Pharmacy 73.5 ml/min; Est GFR (African American) 68.6 ml/min; Est GFR (Non-African American) 59.2 ml/min; Potassium 4.8 mmol/L (3.5-5.1)
[2023-07-05 04:04] LABS: Hematocrit (blood only) 22.6 % (42.0-52.0); Hemoglobin 6.8 g/dl (14.0-18.0); Mean Corpuscular Hemoglobin 29.8 pg (25.0-34.0); Mean Corpuscular Hgb Conc 30.1 g/dL (32.0-36.0); Mean Corpuscular Volume 99.1 fL (80.0-100.0); Nucleated RBC # (auto) 0.12 K/uL (0.00-0.12); Nucleated RBC % (auto) 0.2 %; Platelet Count 81 K/uL (130-400); RDW Coefficient of Variation 20.8 % (11.5-14.5); RDW Standard Deviation 71.4 fL (36.4-46.3); Red Blood Count 2.28 M/uL (4.70-6.10)
[2023-07-05] MEDS ORDERED: SODIUM CHLORIDE 0.9% 250 ML IV PRN ×3 (04:08→16:10)
[2023-07-05 04:14] LABS: Partial Thromboplastin Ratio 1.3; Partial Thromboplastin Time 38 Seconds (21-31)
[2023-07-05 04:28] LABS: iSTAT Art Bld Gas pCO2 Correct 50 mmHg (35-46); iSTAT Art Bld Gas pH Corrected 7.337 (7.35-7.45); iSTAT Arterial Blood Gas HCO3 26 meg/L (19-24); iSTAT Arterial Blood Gas pCO2 48 mmHg (35-46); iSTAT Arterial Blood Gas pH 7.35 (7.35-7.45); iSTAT Arterial Blood Gas pO2 69 mmHg (80-95); iSTAT Arterial Blood Gas pO2 C 73; iSTAT Carbon Dioxide 28 mmol/L (24-31); iSTAT Hematocrit 20 % (42-52); iSTAT Hemoglobin 6.8 g/dl (14.0-18.0); iSTAT Potassium 4.5 mmol/L (3.3-5.0); iSTAT Site R Brachial; iSTAT Sodium 139 mmol/L (135-144)
[2023-07-05 04:38] LABS: ALC (manual) 56.43 K/uL (1.2-3.4); ANC (manual) 1.19 K/uL (1.4-6.5); Lymphocytes # (manual) 56.43 K/uL (1.2-3.4); Lymphocytes % (manual) 95 %; Metamyelocytes # (manual) 0.59 K/uL (0-0); Metamyelocytes % (manual) 1 %; Monocytes # (manual) 1.19 K/uL (0.11-0.59); Monocytes % (manual) 2 %; Neutrophils # (manual) 1.19 K/uL (1.40-6.50); Neutrophils % (manual) 2 %; Polychromasia 1+
--- NOTE | 2023-07-05 07:38 | Critical Care Progress Note ---
Date of Service July 05, 2023 Assessment & Plan (1) Acute and chronic respiratory failure: (2) History of tracheostomy: (3) Chronic right-sided heart failure: (4) Tobacco use: (5) COPD (chronic obstructive pulmonary disease): (6) Chronic respiratory failure: (7) Pneumonia: (8) (HFpEF) heart failure with preserved ejection fraction: (9) Anemia: (10) CLL (chronic lymphocytic leukemia): Plan Reason Critically Ill: 57-year-old male past medical history of CML not on any treatment, HFrEF, COPD on oxygen, GERD was brought in intubated for respiratory distress Neuro - [facility] ICU: Negative Propofol and fentanyl for sedation Cardiac - --Elevated troponin Likely secondary to type II [place] EKG does not show any ST-T wave changes Continue to monitor -- HFpEF BNP 215 at the time of presentation 2D echo 05/24/2023: EF 65 to 70%, grade 1 diastolic dysfunction, RV normal in size and function Respiratory - -- VDRF Multifactorial Likely secondary to COPD exacerbation secondary to entero-/rhinovirus Continue with ventilatory support Keep RASS -1 Respiratory bio fire negative for everything Procalcitonin 0.19 BNP 215 --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 Source of bleeding is unknown No documented melena, OGT suction is clean. Monitor H&H, transfuse for hemoglobin less than 7 --Thrombocytopenia Continue to monitor ID - -- Multilobar pneumonia Mostly affecting the right side Procalcitonin 0.19 Nasal MRSA negative Continue with broad-spectrum antibiotics Follow sputum culture --Prophylaxis VTE: IPC GI: Pantoprazole twice daily Lines: Peripheral Diet: N.p.o. Plan: In/out: +2.8 L, urine output and 1100 ABG 7.35/48/69 on PEEP of 8, 470 mL tidal volume, 20 respiratory Patient's hemoglobin even after 3 units of PRBC is still 7. No clear source of bleed. I will do bronchoscopy on him to make sure he does not have alveolar hemorrhage. If he does not seem to have alveolar hemorrhage then I will send the patient for CT abdomen and pelvis to make sure there is no retroperitoneal bleed. Peripheral smear did not show any signs of schistocytes For the time being increase pantoprazole to twice daily Continue with antibiotics Case was discussed with patient's daughter on the phone Consent was obtained from her after discussing risk and benefits. She understands and agrees with the procedure I have personally spent 47 minutes of critical care time in the direct management of this patient. This is a life/limb threatening event. This includes time spent evaluating patient, direct bedside care, chart review, placing orders, interpretation of diagnostic studies, discussion with consultants, patient, and family members, as well as other required patient management activities. This time is exclusive of all separately billable procedures, and teaching time and separate from and in addition to any other critical care service time. Please note the above document was generated using voice recognition software. It may contain grammatical, syntax or spelling errors. Admission and Anticipated Discharge Date Admission Date: July 04, 2023 Subjective Patient seen and examined at bedside. No acute distress, notable symptoms overnight He was on 50 of propofol. He was breathing over the vent Easily arousable and answering questions. Has been afebrile Review of Systems 2 Review of Systems: Unobtainable due to endotracheal tube Physical Exam 2 Physical Exam: Constitutional: No acute distress HEENT: PERRLA, trach scar present Respiratory system: Decreased air entry bilaterally, no wheeze, rhonchi, positive crackles bilaterally CVS: S1-S2 positive, no murmurs or gallops Abdomen: Soft, nontender, nondistended, positive bowel sounds x4, obese Extremities: +2 pulses bilaterally radialis/ dorsalis pedis, no cyanosis, no edema Neuro: Sedated, breathing with vent Psych: Unable to assess G/U: Positive Ramon Skin: no rashes, warm and dry Lymphatic: no cervical or axillary lymphadenopathy Results & Data Results & Data Vital Signs (Past 12 Hours) Vital Signs Temp Pulse Resp BP Pulse Ox O2 Del Method FiO2 07/05/23 06:24 37.5 C 87 22 108/46 L 95 07/05/23 05:24 37.6 C H 87 20 103/53 L 95 07/05/23 04:54 37.6 C H 89 20 106/51 L 96 07/05/23 04:39 37.7 C H 94 H 20 103/53 L 94 07/05/23 04:23 37.7 C H 93 H 20 103/51 L 95 07/05/23 04:14 91 H 22 93 60 07/05/23 04:00 60 07/05/23 01:21 37.7 C H 80 20 96/50 L 93 07/05/23 00:00 40 07/05/23 00:00 86 07/04/23 23:50 37.6 C H 87 20 101/53 L 90 07/04/23 23:15 91 H 20 98 50 07/04/23 22:50 37.6 C H 85 20 97/55 L 97 07/04/23 22:45 37.6 C H 83 20 97 07/04/23 22:45 97/55 L 07/04/23 22:30 87/50 L 07/04/23 22:30 37.6 C H 83 20 97 07/04/23 22:20 37.6 C H 85 20 96/54 L 98 07/04/23 22:15 37.6 C H 83 20 96 07/04/23 22:15 94/51 L 07/04/23 22:07 37.6 C H 87 20 97/52 L 95 07/04/23 22:05 37.6 C H 84 20 97/52 L 96 07/04/23 22:00 37.6 C H 86 20 95 50 07/04/23 22:00 97/52 L 07/04/23 21:48 37.5 C 84 20 102/57 L 96 07/04/23 21:45 37.5 C 86 20 97 07/04/23 21:45 102/57 L 07/04/23 21:30 97/55 L 07/04/23 21:30 37.5 C 87 20 95 07/04/23 21:17 37.4 C 86 20 104/57 L 96 07/04/23 21:15 37.4 C 87 20 96 07/04/23 21:15 99/54 L 07/04/23 21:11 104/57 L 07/04/23 21:11 37.4 C 85 20 97 07/04/23 21:05 37.4 C 84 20 92/55 L 96 07/04/23 21:00 37.5 C 86 20 98 50 07/04/23 21:00 93/54 L 07/04/23 20:45 Mechanical Vent 07/04/23 20:45 37.4 C 87 20 98 07/04/23 20:45 99/55 L 07/04/23 20:30 37.4 C 88 20 99 07/04/23 20:30 98/54 L 07/04/23 20:22 96 H 29 H 100 50 07/04/23 20:15 37.4 C 86 20 98 07/04/23 20:15 100/59 L 07/04/23 20:05 37.4 C 88 21 100/59 L 100 07/04/23 20:00 37.3 C 88 20 97 50 07/04/23 20:00 101/58 L 07/04/23 20:00 50 07/04/23 19:45 37.3 C 87 21 95 07/04/23 19:45 104/59 L Laboratory Results 07/05/23 03:16 07/05/23 03:16 Coding Level of Care Code 52048 CRITICAL CARE 1ST 30-74M Diagnoses Acute and chronic respiratory failure J96.20 History of tracheostomy Z98.890 Chronic right-sided heart failure I50.812 Tobacco use Z72.0 COPD (chronic obstructive pulmonary disease) J44.9 Chronic respiratory failure J96.10 Pneumonia J18.9 Laterality: right Lung location: unspecified part of lung Pneumonia type: due to unspecified organism (HFpEF) heart failure with preserved ejection fraction I50.30 Anemia due to other cause, not classified D64.89 Anemia type: other cause Other causes of anemia: other cause, not classified CLL (chronic lymphocytic leukemia) C91.10 (7) Pneumonia Laterality: right Lung location: unspecified part of lung Pneumonia type: d ue to unspecified organism Qualified Code(s): J18.9 - Pneumonia, unspecified organism (9) Anemia Anemia type: other cause Other causes of anemia: other cause, not classified Qualified Code(s): D64.89 - Other specified anemias
--- NOTE | 2023-07-05 08:48 | XRay Report ---
SINGLE VIEW CHEST CLINICAL HISTORY: Respiratory failure. FINDINGS: 2 AP, portable, semierect chest radiographs are compared to study dated 07/04/2023 and corre lated with chest CT dated 05/22/2023. Endotracheal and enteric tubes are unchanged in position. The c ardiomediastinal silhouette is top normal for projection. There is pulmonary vascular congestion. Asy mmetric multifocal airspace opacities are similar to yesterday's examination. This is greatest in the right lung. Small pleural effusions are noted. No pneumothorax is seen. The bony thorax is grossly i ntact. IMPRESSION: 1. Stable lines and tubes. 2. Asymmetric multifocal airspace opacities are again seen throughout both lungs. This carotid repres ent pulmonary edema and/or multifocal pneumonia, and this is similar to yesterday. 3. There is pulmonary vascular congestion. 4. Small pleural effusions. ACT 112: Negative or not required by law. Electronically signed by: Leo Marcial M.D. 07/05/2023 8:47 AM
[2023-07-05 09:51] LABS: Hematocrit (blood only) 22.1 % (42.0-52.0)
[2023-07-05] MEDS ORDERED: STAT IV Infusion **Titration per Protocol STA (10:15)
[2023-07-05] MEDS ORDERED: PANTOprazole 40 MG in SYRINGE 0 ML IV SCH (11:00)
[2023-07-05] MEDS: fentaNYL citrate 2,500 MCG/250 ML BAG IV SCH (11:15)
[2023-07-05] MEDS: PANTOprazole 40 MG in SYRINGE 0 ML IV SCH (11:16)
[2023-07-05] MEDS: THIAMINE HCL 100 MG TAB PO SCH (11:24)
[2023-07-05] MEDS: FOLIC ACID 1 MG TAB PO SCH (11:24)
[2023-07-05] MEDS: TUBE FEEDING WATER FLUSH OG SCH (11:38)
--- NOTE | 2023-07-05 12:23 | Procedure Note ---
Procedure Note: Bronchoscopy Procedure PREOPERATIVE DIAGNOSIS: Right-sided consolidative process, rule out alveolar hemorrhage POSTOPERATIVE DIAGNOSIS: No ongoing hemorrhage PROCEDURE PERFORMED: Flexible fiberoptic bronchoscopy with bronchoalveolar lavage COMPLICATIONS: None. INDICATION: Rule out ABLA hemorrhage PROCEDURE: After obtaining an informed consent from the daughter, patient was oxygenated to 100% while being on the vent. Patient was already on propofol. 50 mcg of fentanyl bolus was given followed by another 50 mcg fentanyl. 30 mg of propofol was bolused as well Bronchoscope was advanced through the ETT. The trachea appeared normal.The bronchoscope was then advanced through the melani, which was sharp. The scope was then advanced into the right main stem and each segment, subsegement in the right upper lobe, right middle lobe and right lower lobe were visualized. There was minimal amount of clear secretion which was suctioned out. There were no other findings including evidence of mass, anatomic distortions, or hemorrhage. The bronchoscope was subsequently withdrawn and advanced into the left ma instem. Again, each segment and subsegment was well visualized. No specific masses or other lesions were identified throughout the tracheobronchial tree on the left. There was minimal amount of clear secretion which was suctioned out The bronchoscope was then wedged in the right middle lobe and bronchoalveolar lavage samples were obtained. Sequential aliquots were obtained. Total of 200 ml of saline was instilled and 80 ml of fluid was aspirated back. It was clear, no sequential worsening of bleeding. The bronchoscope was withdrawn and the area was suctioned clear. The bronchoscope was then withdrawn to the mainstem. The area was suctioned clear. The bronchoscope was then withdrawn. The patient tolerated the procedure well without evidence of desaturation or complications. Bronchoalveolar lavage samples were sent for cell count, Gram stain and bacterial culture, fungal culture and smear and cytology. Recommendations: Follow-up micro and cytology Follow-up chest x-ray Please note the above document was generated using voice recognition software. It may contain grammatical, syntax or spelling errors.Any formal questions or concerns about the content, text or information contained within the body of this dictation should be directly addressed to the provider for clarification. [facility] [place] Procedure Codes (Charges) Pulmonary/Thoracic Procedure 1: Pulmonary and Thoracic: 97804 Dx bronchoscopy/BAL
--- NOTE | 2023-07-05 13:07 | XRay Report ---
SINGLE VIEW CHEST CLINICAL HISTORY: Status post bronchoscopy. FINDINGS: 2 AP, portable, semierect chest radiographs are compared to study performed earlier the brian e day 07/05/2023 and correlated with chest CT dated 05/22/2023. Endotracheal and enteric tubes are unc hanged in position. The cardiomediastinal silhouette is top normal for projection. There is pulmonary vascular congestion. Asymmetric multifocal airspace opacities unchanged. This is greatest in the rig ht lung. Small pleural effusions are noted. No pneumothorax is seen. The bony thorax is grossly intac t. IMPRESSION: 1. Stable lines and tubes. 2. No pneumothorax is identified post procedure. 3. Asymmetric multifocal airspace opacities are again seen throughout both lungs this is unchanged fr om today's earlier examination. 4. There is pulmonary vascular congestion. 5. Small pleural effusions. ACT 112: Negative or not required by law. Electronically signed by: Leo Marcial M.D. 07/05/2023 1:05 PM
[2023-07-05 13:22] LABS: Hemoglobin 6.8 g/dl (14.0-18.0)
[2023-07-05 13:51] LABS: Fluid Mono/Macrophage 19 %; Lymphocyte Body Fluid Man 9 %; Neutrophil Body Fluid Man 72 %
[2023-07-05] MEDS: OPTIRAY 320 500ml IV ONE (14:25)
--- NOTE | 2023-07-05 14:47 | CT Scan Report ---
CT abd pelvis IV con only CLINICAL HISTORY: r/o bleed TECHNIQUE: Helical axial images of the abdomen and pelvis were obtained and displayed. Automated dose lowering techniques and/or adjustment according to patient size were utilized for this exam. This e xam was performed with intravenous contrast. COMPARISON: Comparison is made to CT abdomen pelvis 06/07/2023 FINDINGS: Lower chest: For findings above the diaphragm, please see CT chest performed same day. Liver: Unremarkable. No focal lesions are seen. Gallbladder and biliary tree: No calcified gallstones. Normal caliber wall. No intra- or extrahepatic biliary ductal dilation. Pancreas: Unremarkable, no focal lesions. Spleen: Splenomegaly is seen measuring up to 20.3 cm in craniocaudal dimension. Adrenals: Unremarkable. Kidneys and ureters: Unremarkable. Bladder: Ramon catheter is seen. Reproductive organs: Unremarkable. Bowel: A suture is noted in the rectum. Diverticulosis is seen without diverticulitis. Postsurgical c hanges of appendectomy are seen. Lymph nodes Retroperitoneal: Subcentimeter tianna hepatis nodes are noted. Pelvic: Subcentimeter lymph nodes are noted. Mesenteric: Unremarkable. Peritoneum: Normal. Vessels: Atherosclerotic calcifications are seen. Abdominal wall: Unremarkable. Bones: Degenerative changes in the visualized spine. IMPRESSION: 1. No evidence of acute abnormality, in particular no intracranial hemorrhage is seen. 2. Diverticulosis without diverticulitis. Interval placement of a suture in the colon. 3. Stable splenomegaly. ACT 112: Negative or not required by law. Electronically signed by: Fer Rome M.D. 07/05/2023 2:45 PM
--- NOTE | 2023-07-05 14:48 | Hospitalist Progress Note ---
Date of Service July 05, 2023 Assessment & Plan (1) Pneumonia involving right lung: Plan 58-year-old male with PMH of chronic lymphocytic leukemia not on any medication now, COPD, chronic diastolic heart failure, chronic hypoxic respiratory failure, hypertension, selective deficiency of immunoglobulin and, dyslipidemia, thrombocytopenia presented to the ED with acute short of breath since the morning of arrival and needed intubation due to desaturation and shortness of b reath with unresponsiveness at ED. He is being managed for the following: Multilobar pneumonia Severe sepsis POA: Likely secondary to above. Leukocytosis and tachycardia at presentation. Lactate elevated. Acute on chronic respiratory failure with hypercapnia and hypoxia Patient presented with acute shortness of breath, needed intubation in the ED due to unresponsiveness and acute desaturation. Admitting CXR with multifocal airspace opacities, admitting ABG with hypercapnia and hypoxia. Status post bronchoscopy 07/05, follow-up BAL studies and culture. MRSA is negative. Respiratory viral panel negative. Patient is intubated, on propofol, on cefepime, formoterol and budesonide. Patient is being managed in the ICU. Follow-up admitting blood and sputum culture. Acute anemia: No documented melena, bronchoscopy without alveolar hemorrhage, plan for CT abdomen pelvis. Status post 3 units so far, hemoglobin sub seven. Transfuse to maintain hemoglobin above 7. History of CLL: was on ibrutinib started on 02/10/2021 and on hold since 2021 due to heart failure. White cell count in 40s to 50s. Peripheral smear with no evidence of transformation to acute leukemia. Follow-up with oncology upon discharge. History of COPD: Continue budesonide and formoterol. Monitor for exacerbation. Appears a stable. Chronic right-sided heart failure: May 2023 echo with EF of 65 to 70%, grade 1 diastolic dysfunction. BNP elevated at 215. Chest x-ray consistent with mild congestion. Monitor for volume overload. Patient currently intubated. Continue home Lasix when able. HTN: Blood pressure on lower side likely secondary to sepsis. Monitor. Resume home medication as and when able. DVT prophylaxis: SCDs, anemia. Admission and Anticipated Discharge Date Admission Date: July 04, 2023 Subjective Patient was seen and examined at bedside. Patient was lying in bed, intubated, connected to mechanical ventilation, undergoing spontaneous trial, spontaneous eye opening, declined any pain, ROS not able in depth due to intubation status. No new acute events overnight. Physical Exam Physical Exam: GENERAL: Intubated, spontaneous eye opening, undergoing spontaneous trial, on propofol HEENT: pallor, no icterus. Pupils equal, round and reactive to light. Oral mucosa dry. NECK: No JVD, no neck masses. HEART: S1 and S2 heard. Regular rate and rhythm. No murmur, no gallop. RESPIRATORY SYSTEM: Normal AP diameter. No accessory muscle use. rhonci, b/l diff crackles ABDOMEN: Soft, bowel sounds present, nontender, no distention. CENTRAL NERVOUS SYSTEM: intubated, on propofol, spontaneous eye opening. EXTREMITIES: No edema, no erythema seen. Results & Data Results & Data Vital Signs (Past 12 Hours) Vital Signs Temp Pulse Resp BP Pulse Ox O2 Del Method FiO2 07/05/23 12:00 65 07/05/23 11:33 Mechanical Vent 07/05/23 10:45 99 H 25 H 95 50 07/05/23 09:15 37.3 C 90 16 92 CPAP, Mechanical Vent 0.5 07/05/23 09:15 106/55 L 07/05/23 09:00 37.3 C 91 H 17 93 07/05/23 09:00 107/54 L 07/05/23 08:45 118/55 L 07/05/23 08:45 37.4 C 90 14 94 07/05/23 08:41 91 H 15 94 50 07/05/23 08:30 37.4 C 88 23 95 07/05/23 08:30 112/55 L 07/05/23 08:18 Mechanical Vent 0.5 07/05/23 08:15 37.4 C 88 22 97 07/05/23 08:15 109/53 L 07/05/23 08:00 37.4 C 90 22 96 07/05/23 08:00 112/58 L 07/05/23 08:00 60 07/05/23 07:45 37.4 C 87 23 97 07/05/23 07:45 108/57 L 07/05/23 07:45 88 23 96 60 07/05/23 07:30 111/56 L 07/05/23 07:30 37.4 C 90 22 93 07/05/23 07:15 108/56 L 07/05/23 07:15 37.4 C 90 22 95 07/05/23 07:00 37.4 C 84 22 95 07/05/23 07:00 101/53 L 07/05/23 06:45 37.5 C 86 22 95 07/05/23 06:45 102/54 L 07/05/23 06:24 37.5 C 87 22 108/46 L 95 07/05/23 05:24 37.6 C H 87 20 103/53 L 95 07/05/23 04:54 37.6 C H 89 20 106/51 L 96 07/05/23 04:39 37.7 C H 94 H 20 103/53 L 94 07/05/23 04:23 37.7 C H 93 H 20 103/51 L 95 07/05/23 04:14 91 H 22 93 60 07/05/23 04:00 60 (1) Pneumonia involving right lung Lung location: upper lobe of lung Pneumonia type: due to unspecified organism Qualified Code(s): J18.9 - Pneumonia, unspecified organism
--- NOTE | 2023-07-05 15:01 | CT Scan Report ---
CT SCAN OF THE CHEST WITH IV CONTRAST CLINICAL HISTORY: Anemia. Leukocytosis. COMPARISON STUDY: Chest x-ray dated 07/05/2023. Prior chest CT scans, most recently dated 05/22/2023. TECHNIQUE: Following the IV administration of 94 cc of Optiray 320, CT scan of the thorax was perform ed from the thoracic inlet to the upper abdomen. Images are reviewed in the axial, sagittal, and johana nal planes. IV contrast was administered without complication. A dose lowering technique was utilize d adhering to the principles of ALARA. The Examination is degraded by motion artifact. CT DOSE: 2446.37 mGy.cm FINDINGS: Thyroid: Imaged portions of the thyroid gland are normal in size and attenuation. Thoracic aorta: There is atherosclerotic calcification of the thoracic aorta, which is normal in monica val[place] and demonstrates bovine variant arch anatomy. No dissection is seen. Pulmonary vasculature: The pulmonary trunk is normal in caliber. There are no filling defects identif ied in the central pulmonary vessels to indicate pulmonary embolus. Note that this examination was no t protocoled for evaluation of the pulmonary arteries. Heart: The heart is enlarged and without pericardial effusion. The coronary arteries are densely calc ified. Lungs and pleural spaces: Evaluation of the lung parenchyma is degraded by motion artifact. An endotr acheal term terminates above the melani. Secretions are seen in the distal trachea and mainstem bronc hi. There is emphysematous change. There are small right and trace left pleural effusions. Intralobul ar septal thickening is seen throughout both lungs. Dense dependent airspace consolidation is seen in both lungs, right significantly greater than left. There are increasing patchy/nodular airspace opac ities in the left upper lobe as compared to 05/22/2023. A motor vehicle field representative focus is seen on image #68. Smaller foci are seen on images #81, #89, and #96. Innumerable tiny pulmonary nodules are similar to prior examinations. Lower neck: Mildly enlarged left supraclavicular nodes are similar to previous. These measure up to 1 .0 cm in short axis. Mediastinum: There are numerous mildly enlarged mediastinal lymph nodes. A right paratracheal node on image #71 measures 1.6 x 1.1 cm. Prevascular nodes measure up to 1.2 cm in short axis. Michelle: There are enlarged bilateral hilar nodes which measure up to 1.3 cm short axis. Axillae: There are shotty axillary nodes. Upper abdomen: An enteric tube extends below the diaphragm into the stomach. The spleen is markedly e nlarged. A prominent gastrohepatic node is partially visualized, measuring up to 1.5 cm in length. Th e liver is also likely enlarged. Skeletal structures: No lytic or blastic bony lesions are seen. Degenerative change is noted in the s houlders and spine. IMPRESSION: 1. Cardiomegaly and emphysema. Intralobular septal thickening suggests fluid overload/congestive sumner ge. 2. There is dense dependent airspace consolidation seen bilaterally, right significantly greater than left. This is unchanged from recent chest x-rays but has significantly progressed as compared to the 05/22/2023 CT scan appear The appearance favors pneumonia. Clinical correlation will be essential an d follow-up to resolution is recommended. 3. Additional patchy/nodular opacities are seen throughout the left lung. This has increased from pre vious, and is also likely infectious/inflammatory. Reassessment of follow-up will be required. 4. Small right and trace left pleural effusions. 5. There are numerous mildly enlarged left supraclavicular, mediastinal, hilar, and upper abdominal l ymph nodes. This is similar to previous. Correlate for any oncological history. 6. Marked splenomegaly. The liver is also likely enlarged. 7. Additional findings as above. ACT 112: Negative or not required by law. Electronically signed by: Leo Marcial M.D. 07/05/2023 2:59 PM
[2023-07-05] MEDS: PNEUMOCOCCAL VACCINE (PCV20) 20-VAL CONJ-DIP CRM/PF 0.5 ML SYR IM ONE (15:56)
[2023-07-05] MEDS: PEPTAMEN INTENSE VHP 1.0 CAL 1,000 ML BAG OG SCH (17:49)
[2023-07-06 00:09] LABS: Hematocrit (blood only) 23.9 % (42.0-52.0); Hemoglobin 7.7 g/dl (14.0-18.0); Mean Corpuscular Hemoglobin 30.7 pg (25.0-34.0); Mean Corpuscular Hgb Conc 32.2 g/dL (32.0-36.0); Mean Corpuscular Volume 95.2 fL (80.0-100.0); Mean Platelet Volume 12.4 fL (9.4-12.4); Nucleated RBC # (auto) 0.12 K/uL (0.00-0.12); Nucleated RBC % (auto) 0.3 %; Platelet Count 62 K/uL (130-400); RDW Coefficient of Variation 20.1 % (11.5-14.5); RDW Standard Deviation 63.7 fL (36.4-46.3); Red Blood Count 2.51 M/uL (4.70-6.10); White Blood Count 46.06 K/ul (4.8-10.8)
[2023-07-06 05:11] LABS: Calcium 8.5 mg/dl (8.6-10.3); Magnesium 2.1 mg/dl (1.7-2.4); Potassium 4.2 mmol/L (3.5-5.1)
[2023-07-06 05:17] LABS: BUN Creatinine Ratio 20.3 (10-20); Creatinine Clr Calc Pharmacy 64.5 ml/min; Est GFR (African American) 59.2 ml/min; Est GFR (Non-African American) 51.1 ml/min
[2023-07-06 05:27] LABS: iSTAT Allen Test Pass; iSTAT Art Bld Gas pCO2 Correct 46 mmHg (35-46); iSTAT Art Bld Gas pH Corrected 7.342 (7.35-7.45); iSTAT Arterial Blood Gas HCO3 25 meg/L (19-24); iSTAT Arterial Blood Gas pCO2 44 mmHg (35-46); iSTAT Arterial Blood Gas pH 7.36 (7.35-7.45); iSTAT Arterial Blood Gas pO2 65 mmHg (80-95); iSTAT Arterial Blood Gas pO2 C 69; iSTAT Carbon Dioxide 26 mmol/L (24-31); iSTAT FiO2 60 %; iSTAT Hematocrit 23 % (42-52); iSTAT Hemoglobin 7.8 g/dl (14.0-18.0); iSTAT Potassium 3.9 mmol/L (3.3-5.0); iSTAT Site L Radial; iSTAT Sodium 138 mmol/L (135-144)
--- NOTE | 2023-07-06 05:29 | Electrocardiogram Report ---
Test Reason : Blood Pressure : / mmHG Vent. Rate : 103 BPM Atrial Rate : 103 BPM P-R Int : 166 ms QRS Dur : 090 ms QT Int : 354 ms P-R-T Axes : 069 078 084 degrees QTc Int : 463 ms Sinus tachycardia Nonspecific ST abnormality When compared with ECG of 04-JUL-2023 11:11, No significant change Confirmed by Jase Smith ([id number]) on 07/06/2023 5:29:00 AM Referred By: REFERRED SELF Confirmed By:Jase Smith
[2023-07-06 05:36] LABS: Ferritin 304.9 ng/ml (8-388)
[2023-07-06 05:41] LABS: Folate (Folic Acid),Ser orPlas 19.86 ng/ml (>5.38)
[2023-07-06 05:42] LABS: Partial Thromboplastin Ratio 1.3; Partial Thromboplastin Time 37 Seconds (21-31)
[2023-07-06 05:43] LABS: Hematocrit (blood only) 25.1 % (42.0-52.0); Hemoglobin 7.9 g/dl (14.0-18.0); Mean Corpuscular Hemoglobin 30.3 pg (25.0-34.0); Mean Corpuscular Hgb Conc 31.5 g/dL (32.0-36.0); Mean Corpuscular Volume 96.2 fL (80.0-100.0); Mean Platelet Volume 12.8 fL (9.4-12.4); Nucleated RBC # (auto) 0.11 K/uL (0.00-0.12); Nucleated RBC % (auto) 0.2 %; Platelet Count 59 K/uL (130-400); RDW Coefficient of Variation 20.6 % (11.5-14.5); RDW Standard Deviation 65.9 fL (36.4-46.3); Red Blood Count 2.61 M/uL (4.70-6.10); White Blood Count 48.52 K/ul (4.8-10.8)
[2023-07-06 06:05] LABS: Immature Retic Fraction 36.3 % (2.3-15.9); Reticulocyte % 2.84 % (0.50-2.00)
[2023-07-06 06:09] LABS: ALC (manual) 47.55 K/uL (1.2-3.4); ANC (manual) 0.97 K/uL (1.4-6.5); Lymphocytes # (manual) 47.55 K/uL (1.2-3.4); Lymphocytes % (manual) 98 %; Neutrophils # (manual) 0.97 K/uL (1.40-6.50); Neutrophils % (manual) 2 %; RBC Morphology Unremarkable
--- NOTE | 2023-07-06 07:33 | Hospitalist Progress Note ---
Date of Service July 06, 2023 Assessment & Plan (1) Pneumonia involving right lung: Plan Mr. Valiente is a 58-year-old male with PMH of chronic lymphocytic leukemia not on any medication now, COPD, chronic diastolic heart failure, chronic hypoxic respiratory failure, hypertension, selective deficiency of immunoglobulin and, dyslipidemia, thrombocytopenia presented to the ED with acute short of breath since the morning of arrival and needed intubation due to desaturation and shortness of breath with unresponsiveness at ED. He is being managed for the following: #Acute on chronic respiratory failure with hypercapnia/hypoxia requiring mechanical ventilation #Multilobar pneumonia #Severe sepsis POA: Likely secondary to above. Leukocytosis and tachycardia at presentation. Lactate elevated. Patient presented with acute shortness of breath, needed intubation in the ED due to unresponsiveness and acute desaturation. Admitting CXR with multifocal airspace opacities, admitting ABG with hypercapnia and hypoxia. CT Chest on 07/05 with dense right > left consolidation, progressed since 05/22 Bronchoscopy on 07/05 with clear secretions MRSA is negative. Respiratory viral panel negative: vancomycin discontinued Patient intubated on 07/04 Patient is being managed in the ICU. Follow-up blood and sputum culture. Continue Cefepime at this time CBC/BMP ordered Vent/SBT per ICU #Fevers Potentially multifactorial Follow infectious work up, reduced medications that may contribute Consider CLL as etiology Follow fever curve and clinical status #Sinus Tachycardia iso critical illness Monitor on telemetry #Acute normocytic anemia #Chronic anemia of chronic disease No documented melena, bronchoscopy without alveolar hemorrhage, plan for CT abdomen pelvis. Status post 3 units so far, hemoglobin sub seven. Transfuse to maintain hemoglobin above 7. Hgb this am 7.9 Anemia labs reviewed: LDH 185, B12 281, Folate 19.85, Ferritin 304.9, retic 2.84 CT AB/P w/ con without signs of hematoma, apparent losses: diverticulosis, splenomegaly Plan for GI consult if hemoglobin fails to stabilize for ?EGD #BEN likely prerenal iso sepsis hypotension Cr. 1.48, baseline 0.9-1.2 Avoid nephrotoxic, maintain maps >65 BMP ordered #Hyperglycemia A1C 5.2% , ICU protocol #CLL #Chronic Leukocytosis #Splenomegaly was on ibrutinib started on 02/10/2021 and on hold since 2021 due to heart failure. White cell count in 40s to 50s. Peripheral smear with no evidence of transformation to acute leukemia. Follow-up with oncology upon discharge CBC ordered #Thrombocytopenia downtrending, monitor for signs of bleeding #COPD Emphysema on imaging Resume budesonide and formoterol when able #Chronic right-sided heart failure May 2023 echo with EF of 65 to 70%, grade 1 diastolic dysfunction. BNP elevated at 215. Chest x-ray consistent with mild congestion. Home regimen: Lasix 80mg BID Monitor for volume overload #HTN Now relatively hypotensive 2/2 sepsis. #GERD Continue home PPI OGT, TF per ICU Analgesia: Fentanyl Sedation: Propofol DVT SCDS 2/2 thrombocytopenia/anemia HOB 30 Ulcer: PPI IV hyperglycemia protocol per ICU Bowel regimen prn Indwelling cath Abx: Cefepime SBT per ICU Admission and Anticipated Discharge Date Admission Date: July 04, 2023 Subjective Remains intubated Alert to name, opens eyes to verbal stimuli, drifts to sleep, no signs of resistance against ventilator Review of Systems Review of Systems: Unobtainable due to endotracheal tube Physical Exam Constitutional: intubated, planned sedation holiday, alert to verbal stimuli Respiratory: mechanical breath sounds, no distress/bucking of vent Cardiovascular: tachycardic, ?DURGA Gastrointestinal (Abdomen): distended, firm--no noticeable grimacing on exam/palpation Results & Data Results & Data Vital Signs (Past 12 Hours) Vital Signs Temp Pulse Resp BP Pulse Ox O2 Del Method FiO2 07/06/23 06:00 37.9 C H 94 H 23 92 60 07/06/23 06:00 106/57 L 07/06/23 05:30 37.9 C H 95 H 22 91 07/06/23 05:30 108/59 L 07/06/23 05:00 111/56 L 07/06/23 05:00 37.9 C H 101 H 22 96 60 07/06/23 04:30 37.9 C H 99 H 20 91 07/06/23 04:30 102/53 L 07/06/23 04:00 37.9 C H 100 H 19 93 60 07/06/23 04:00 117/60 07/06/23 04:00 60 07/06/23 03:30 37.9 C H 96 H 20 93 07/06/23 03:30 110/56 L 07/06/23 03:00 38.0 C H 98 H 22 93 60 07/06/23 03:00 113/54 L 07/06/23 02:30 111/55 L 07/06/23 02:30 38.1 C H 97 H 23 94 07/06/23 02:00 110/54 L 07/06/23 02:00 97 H 22 93 60 07/06/23 02:00 37.1 C 07/06/23 01:30 109/53 L 07/06/23 01:30 99 H 22 93 07/06/23 01:00 102/53 L 07/06/23 01:00 100 H 20 93 60 07/06/23 00:30 113/56 L 07/06/23 00:30 103 H 22 91 07/06/23 00:00 97/52 L 07/06/23 00:00 104 H 24 88 L 60 07/06/23 00:00 60 07/06/23 00:00 103 H 07/05/23 23:40 101 H 24 92 65 07/05/23 23:31 110/60 07/05/23 23:31 38.1 C H 109 H 25 H 91 07/05/23 23:00 105/54 L 07/05/23 23:00 38.1 C H 96 H 22 93 60 07/05/23 22:30 38.0 C H 96 H 24 91 07/05/23 22:30 111/60 07/05/23 22:00 38.0 C H 96 H 23 93 60 07/05/23 22:00 115/57 L 07/05/23 21:30 114/61 07/05/23 21:30 37.9 C H 95 H 23 91 07/05/23 21:00 37.9 C H 96 H 24 89 L 60 07/05/23 21:00 105/54 L 07/05/23 20:30 109/52 L 07/05/23 20:30 37.8 C H 96 H 14 88 L 07/05/23 20:30 CPAP 07/05/23 20:25 96 H 23 90 60 07/05/23 20:00 37.7 C H 97 H 18 92 60 07/05/23 20:00 114/60 07/05/23 20:00 60 07/05/23 19:57 37.7 C H 98 H 20 112/58 L 92 07/05/23 19:30 112/58 L 02/13/24 19:30 37.6 C H 94 H 15 90 07/05/23 19:29 37.6 C H 95 H 18 112/58 L 90 Laboratory Results Short CBC 07/05/23 07/05/23 07/05/23 Range/Units 08:57 12:47 22:33 WBC 46.06 H* (4.8-10.8) K/ul Hgb 7.0 L 6.8 L* 7.7 L (14.0-18.0) g/dl Hct 22.1 L 22.0 L 23.9 L (42.0-52.0) % Plt Count 62 L (130-400) K/uL 07/06/23 Range/Units 04:30 WBC 48.52 H* (4.8-10.8) K/ul Hgb 7.9 L (14.0-18.0) g/dl Hct 25.1 L (42.0-52.0) % Plt Count 59 L (130-400) K/uL BMP 07/06/23 04:30 Sodium 138 Potassium 4.2 Chloride 105 Carbon Dioxide 27 BUN 30 H Creatinine 1.48 H Glucose 131 H Calcium 8.5 L Diagnostic Findings Chest X-Ray 07/05/23 12:23 SINGLE VIEW CHEST CLINICAL HISTORY: Status post bronchoscopy. FINDINGS: 2 AP, portable, semierect chest radiographs are compared to study performed earlier the same day 07/05/2023 and correlated with chest CT dated 05/22/2023. Endotracheal and enteric tubes are unchanged in position. The cardiomediastinal silhouette is top normal for projection. There is pulmonary vascular congestion. Asymmetric multifocal airspace opacities unchanged. This is greatest in the right lung. Small pleural effusions are noted. No pneumothorax is seen. The bony thorax is grossly intact. IMPRESSION: 1. Stable lines and tubes. 2. No pneumothorax is identified post procedure. 3. Asymmetric multifocal airspace opacities are again seen throughout both lungs this is unchanged from today's earlier examination. 4. There is pulmonary vascular congestion. 5. Small pleural effusions. ACT 112: Negative or not required by law. Electronically signed by: Leo Marcial M.D. 07/05/2023 1:05 PM Abdomen/Pelvis CT 07/05/23 13:38 CT abd pelvis IV con only CLINICAL HISTORY: r/o bleed TECHNIQUE: Helical axial images of the abdomen and pelvis were obtained and displayed. Automated dose lowering techniques and/or adjustment according to patient size were utilized for this exam. This exam was performed with intravenous contrast. COMPARISON: Comparison is made to CT abdomen pelvis 06/07/2023 FINDINGS: Lower chest: For findings above the diaphragm, please see CT chest performed same day. Liver: Unremarkable. No focal lesions are seen. Gallbladder and biliary tree: No calcified gallstones. Normal caliber wall. No intra- or extrahepatic biliary ductal dilation. Pancreas: Unremarkable, no focal lesions. Spleen: Splenomegaly is seen measuring up to 20.3 cm in craniocaudal dimension. Adrenals: Unremarkable. Kidneys and ureters: Unremarkable. Bladder: Ramon catheter is seen. Reproductive organs: Unremarkable. Bowel: A suture is noted in the rectum. Diverticulosis is seen without diverticulitis. Postsurgical changes of appendectomy are seen. Lymph nodes Retroperitoneal: Subcentimeter tianna hepatis nodes are noted. Pelvic: Subcentimeter lymph nodes are noted. Mesenteric: Unremarkable. Peritoneum: Normal. Vessels: Atherosclerotic calcifications are seen. Abdominal wall: Unremarkable. Bones: Degenerative changes in the visualized spine. IMPRESSION: 1. No evidence of acute abnormality, in particular no intracranial hemorrhage is seen. 2. Diverticulosis without diverticulitis. Interval placement of a suture in the colon. 3. Stable splenomegaly. ACT 112: Negative or not required by law. Electronically signed by: Fer Rome M.D. 07/05/2023 2:[address] 07/05/23 13:38 CT SCAN OF THE CHEST WITH IV CONTRAST CLINICAL HISTORY: Anemia. Leukocytosis. COMPARISON STUDY: Chest x-ray dated 07/05/2023. Prior chest CT scans, most recently dated 05/22/2023. TECHNIQUE: Following the IV administration of 94 cc of Optiray 320, CT scan of the thorax was performed from the thoracic inlet to the upper abdomen. Images are reviewed in the axial, sagittal, and coronal planes. IV contrast was administered without complication. A dose lowering technique was utilized adhering to the principles of ALARA. The Examination is degraded by motion artifact. CT DOSE: 2446.37 mGy.cm FINDINGS: Thyroid: Imaged portions of the thyroid gland are normal in size and attenuation. Thoracic aorta: There is atherosclerotic calcification of the thoracic aorta, which is normal in caliber and demonstrates bovine variant arch anatomy. No dissection is seen. Pulmonary vasculature: The pulmonary trunk is normal in caliber. There are no filling defects identified in the central pulmonary vessels to indicate pulmonary embolus. Note that this examination was not protocoled for evaluation of the pulmonary arteries. Heart: The heart is enlarged and without pericardial effusion. The coronary arteries are densely calcified. Lungs and pleural spaces: Evaluation of the lung parenchyma is degraded by motion artifact. An endotracheal term terminates above the melani. Secretions are seen in the distal trachea and mainstem bronchi. There is emphysematous change. There are small right and trace left pleural effusions. Intralobular septal thickening is seen throughout both lungs. Dense dependent airspace consolidation is seen in both lungs, right significantly greater than left. There are increasing patchy/nodular airspace opacities in the left upper lobe as compared to 05/22/2023. A renewals representative focus is seen on image #68. Smaller foci are seen on images #81, #89, and #96. Innumerable tiny pulmonary nodules are similar to prior examinations. Lower neck: Mildly enlarged left supraclavicular nodes are similar to previous. These measure up to 1.0 cm in short axis. Mediastinum: There are numerous mildly enlarged mediastinal lymph nodes. A right paratracheal node on image #71 measures 1.6 x 1.1 cm. Prevascular nodes measure up to 1.2 cm in short axis. Michelle: There are enlarged bilateral hilar nodes which measure up to 1.3 cm short axis. Axillae: There are shotty axillary nodes. Upper abdomen: An enteric tube extends below the diaphragm into the stomach. The spleen is markedly enlarged. A prominent gastrohepatic node is partially visualized, measuring up to 1.5 cm in length. The liver is also likely enlarged. Skeletal structures: No lytic or blastic bony lesions are seen. Degenerative change is noted in the shoulders and spine. IMPRESSION: 1. Cardiomegaly and emphysema. Intralobular septal thickening suggests fluid overload/congestive change. 2. There is dense dependent airspace consolidation seen bilaterally, right significantly greater than left. This is unchanged from recent chest x-rays but has significantly progressed as compared to the 05/22/2023 CT scan appear The appearance favors pneumonia. Clinical correlation will be essential and follow- up to resolution is recommended. 3. Additional patchy/nodular opacities are seen throughout the left lung. This has increased from previous, and is also likely infectious/inflammatory. Reassessment of follow-up will be required. 4. Small right and trace left pleural effusions. 5. There are numerous mildly enlarged left supraclavicular, mediastinal, hilar, and upper abdominal lymph nodes. This is similar to previous. Correlate for any oncological history. 6. Marked splenomegaly. The liver is also likely enlarged. 7. Additional findings as above. ACT 112: Negative or not required by law. Electronically signed by: Leo Marcial M.D. 07/05/2023 2:59 PM Chest X-Ray 07/06/23 07:00 XR chest 1V portable HISTORY: Respiratory failure. COMPARISON: Chest CT 07/05/2023. FINDINGS: Endotracheal tube measures 4.4 cm from the melani. Nasogastric tube terminates below the diaphragm. The tip is not included on this study. No pneumothorax. The heart remains mildly enlarged. Right greater than left airspace opacities and trace bilateral pleural effusions persist. Interstitial thickening likely represent superimposed congestive change. This is also similar to the prior study. IMPRESSION: 1. Stable lines and tubes. 2. Bilateral airspace opacities, right greater than the left, persist. 3. Superimposed congestive change is also similar to the prior study. ACT 112: Negative or not required by law. Electronically signed by: Roby Lane M.D. 07/06/2023 8:20 AM Medications Administered Home Medications Medication Instructions Recorded Confirmed Last Taken tiotropium bromide 18 mcg capsule 18 mcg inhalation DAILY 06/25/22 07/04/23 Unknown with inhalation device (Spiriva with HandiHaler) albuterol sulfate 90 mcg/actuation 2 puff inhalation Q4 PRN Shortness 05/22/23 07/04/23 Unknown aerosol inhaler Of Breath Or Wheezing epinephrine 0.3 mg/0.3 mL 0.3 mg IM UD PRN bee stings 05/22/23 07/04/23 Unknown injection, auto-injector (EpiPen) fluticasone propionate 230 2 puff inhalation [facility] 05/22/23 07/04/23 Unknown mcg-salmeterol 21 mcg/actuation HFA inhaler (Advair HFA) furosemide 80 mg tablet 80 mg PO BID 05/22/23 07/04/23 Unknown omeprazole 20 mg capsule,delayed 20 mg PO DAILYBB 05/22/23 07/04/23 Unknown release cyanocobalamin (vitamin B-12) 500 1,000 mcg (2 x 500 mcg) PO QAM #30 06/10/23 07/04/23 Unknown mcg tablet tabs folic acid 1 mg tablet 1 mg PO QAM #30 tabs 06/10/23 07/04/23 Unknown Active Medications Generic Name Dose Route Start Last Admin Trade Name Richard PRN Reason Stop Dose Admin Budesonide 0.25 mg 07/04/23 19:00 07/05/23 21:00 Budesonide 0.25 Mg/2 Ml Vial (Pulmicort) NEB 08/03/23 18:59 0.25 mg BIDR SAM Administration Folic Acid 1 mg 07/05/23 10:45 07/05/23 11:24 Folic Acid 1 Mg Tab PO 08/04/23 10:44 1 mg QAM SAM Administration Formoterol Fumarate 20 mcg 07/04/23 19:00 07/05/23 21:00 Formoterol 20 Mcg/2 Ml Vial INH 08/03/23 18:59 20 mcg BIDR SAM Administration Propofol 1,000 mg in 100 mls @ 21 mls/hr 07/04/23 11:15 07/06/23 06:22 Diprivan IV 07/07/23 11:14 35 mcg/kg/min .[id number] SAM 21 mls/hr Administration Protocol 35 MCG/KG/MIN Cefepime HCl 2,000 mg/ Syringe 20 mls @ 5 mls/min 07/04/23 20:00 07/06/23 03:55 IV 07/11/23 19:59 5 mls/min Q8H SAM Administration Protocol Pantoprazole Sodium 40 mg/ 10 mls @ 5 mls/min 07/05/23 09:00 07/05/23 20:12 Syringe IV 08/04/23 08:59 5 mls/min BID SAM Administration Fentanyl Citrate 2,500 mcg in 250 mls @ 7.5 mls/hr 07/05/23 10:15 07/06/23 04:03 Fentanyl Citrate IV 07/19/23 10:14 75 mcg/hr .[id number] SAM 7.5 mls/hr Titration Protocol 75 MCG/HR Nutritional Formula 1,000 ml 07/05/23 11:30 07/05/23 17:49 Peptamen Intense Vhp 1.0 Christiano 1,000 Ml Bag OG 08/04/23 11:29 1,000 ml UD SAM Administration Protocol Propofol 20 mg 07/04/23 11:13 07/05/23 00:25 Propofol Bolus From Bag IV 07/07/23 11:12 20 mg Q5M PRN Administration Sedation Sterile Water 30 ml 07/05/23 11:30 07/06/23 03:55 Tube Feeding Water Flush OG 08/04/23 11:29 30 ml Q4H SAM Administration Thiamine HCl 100 mg 07/05/23 10:45 07/05/23 11:24 Thiamine Hcl 100 Mg Tab PO 08/04/23 10:44 100 mg QAM SAM Administration (1) Pneumonia involving right lung Lung location: upper lobe of lung Pneumonia type: due to unspecified organism Qualified Code(s): J18.9 - Pneumonia, unspecified organism
--- NOTE | 2023-07-06 07:56 | Critical Care Progress Note ---
Date of Service July 06, 2023 Assessment & Plan (1) Acute and chronic respiratory failure: (2) History of tracheostomy: (3) Chronic right-sided heart failure: (4) Tobacco use: (5) COPD (chronic obstructive pulmonary disease): (6) Chronic respiratory failure: (7) Pneumonia: (8) (HFpEF) heart failure with preserved ejection fraction: (9) Anemia: (10) CLL (chronic lymphocytic leukemia): Plan Reason Critically Ill: 57-year-old male past medical history of CML not on any treatment, HFrEF, COPD on oxygen, GERD was brought in intubated for respiratory distress Neuro - [facility] ICU: Negative Propofol and fentanyl for sedation Cardiac - --Elevated troponin Likely secondary to type II AR EKG does not show any ST-T wave changes Continue to monitor -- HFpEF BNP 215 at the time of presentation 2D echo 05/24/2023: EF 65 to 70%, grade 1 diastolic dysfunction, RV normal in size and function Respiratory - -- VDRF Multifactorial Likely secondary to COPD exacerbation secondary to entero-/rhinovirus Continue with ventilatory support Keep RASS -1 Respiratory bio fire negative for everything Procalcitonin 0.19 BNP 215 S/p bronch 07/05/2023, no evidence of alveolar hemorrhage Follow-up bronc culture CT chest 07/05/2023: Dense consolidative process in the right lower lobe Centrilobular and paraseptal emphysema appreciated bilaterally Minimal mediastinal and right hilar lymphadenopathy --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 Not in exacerbation On Advair and Spiriva at home GI - -- History of GERD Continue with pantoprazole RENAL/LYTES - -- BEN Monitor BUN/creatinine Avoid nephrotoxic medications Strict ins and outs -- S/p hyperkalemia Could be an error given hyperleukocytosis - Ramon catheter ENDO - -- ICU hypoglycemia protocol HEME - -- History of CLL with hyperleukocytosis Not on any chemotherapy right now -- Acute anemia Got 4 units PRBC so far. Source of bleeding is unknown No documented melena, OGT suction is clean. Peripheral smear did not show any signs of schistocytes LDH normal, B12 and folic acid within normal limit. Bilirubin within normal limit, reticulocytes on the higher side this does go with acute blood loss CT abdomen pelvis 07/05/2023 does not show any signs of retroperitoneal bleed If the patient has drop in hemoglobin again then we will get GI consult for possible endoscopy Monitor H&H, transfuse for hemoglobin less than 7 --Thrombocytopenia Continue to monitor ID - -- Multilobar pneumonia Mostly affecting the right side Procalcitonin 0.19 Nasal MRSA negative Continue with broad-spectrum antibiotics Follow sputum culture --Prophylaxis VTE: IPC GI: Pantoprazole twice daily Lines: Peripheral Diet: N.p.o. Plan: In/out: +2.8 L, urine output and 1100 ABG 7.36/44/65 8/60% Patient's hemoglobin has finally stabilized after 4 units of PRBC. Will repeat H&H later today. If there is again significant drop in the hemoglobin then we will get GI involved to plan for endoscopy. Patient has mild BEN compared to yesterday. Will give him Plasma-Lyte 125 mill an hour for 5 hours. Repeat BMP later today as well. Given no bowel movement since coming to the hospital and complaining of mild abdominal tenderness. Will give him a dose of lactulose and start him on MiraLAX on a daily basis. Continue with antibiotics Case was discussed with patient's daughter on the phone I have personally spent 39 minutes of critical care time in the direct management of this patient. This is a life/limb threatening event. This includes time spent evaluating patient, direct bedside care, chart review, placing orders, interpretation of diagnostic studies, discussion with consultants, patient, and family members, as well as other required patient management activities. This time is exclusive of all separately billable procedures, and teaching time and separate from and in addition to any other critical care service time. Please note the above document was generated using voice recognition software. It may contain grammatical, syntax or spelling errors. Admission and Anticipated Discharge Date Admission Date: July 04, 2023 Subjective Patient seen and examined at bedside. No acute distress, no adverse events overnight He was on sedation holiday at the time of examination. He was comfortable and compliant with. He was on pressure support 8/8 breathing in the high teens. Mild headache, no chest pain, did complain of some abdominal discomfort especially lower abdomen. He has had no bowel movement since coming to the hospital. Has been getting tube feeds Review of Systems 2 Review of Systems: Unobtainable due to endotracheal tube Physical Exam 2 Physical Exam: Constitutional: No acute distress HEENT: PERRLA, trach scar present Respiratory system: Decreased air entry bilaterally, no wheeze, rhonchi, positive crackles bilaterally CVS: S1-S2 positive, no murmurs or gallops Abdomen: Soft, distended, mild diffuse tenderness, no rebound, positive bowel sounds x4, obese Extremities: +2 pulses bilaterally radialis/ dorsalis pedis, no cyanosis, no edema Neuro: RASS -1, answering questions appropriately Psych: Unable to assess G/U: Positive Rmaon Skin: no rashes, warm and dry Lymphatic: no cervical or axillary lymphadenopathy Results & Data Results & Data Vital Signs (Past 12 Hours) Vital Signs Temp Pulse Resp BP Pulse Ox O2 Del Method FiO2 07/06/23 07:49 105 H 15 93 50 07/06/23 07:00 109/59 L 07/06/23 07:00 37.9 C H 95 H 22 93 Mechanical Vent 60 07/06/23 06:30 37.9 C H 97 H 22 92 07/06/23 06:30 115/55 L 07/06/23 06:00 37.9 C H 94 H 23 92 60 07/06/23 06:00 106/57 L 07/06/23 05:30 37.9 C H 95 H 22 91 07/06/23 05:30 108/59 L 07/06/23 05:00 111/56 L 07/06/23 05:00 37.9 C H 101 H 22 96 60 07/06/23 04:30 37.9 C H 99 H 20 91 07/06/23 04:30 102/53 L 07/06/23 04:00 37.9 C H 100 H 19 93 60 07/06/23 04:00 117/60 07/06/23 04:00 60 07/06/23 03:30 37.9 C H 96 H 20 93 07/06/23 03:30 110/56 L 07/06/23 03:00 38.0 C H 98 H 22 93 60 07/06/23 03:00 113/54 L 07/06/23 02:30 111/55 L 07/06/23 02:30 38.1 C H 97 H 23 94 07/06/23 02:00 110/54 L 07/06/23 02:00 97 H 22 93 60 07/06/23 02:00 37.1 C 07/06/23 01:30 109/53 L 07/06/23 01:30 99 H 22 93 07/06/23 01:00 102/53 L 07/06/23 01:00 100 H 20 93 60 07/06/23 00:30 113/56 L 07/06/23 00:30 103 H 22 91 07/06/23 00:00 97/52 L 07/06/23 00:00 104 H 24 88 L 60 07/06/23 00:00 60 07/06/23 00:00 103 H 07/05/23 23:40 101 H 24 92 65 07/05/23 23:31 110/60 07/05/23 23:31 38.1 C H 109 H 25 H 91 07/05/23 23:00 105/54 L 07/05/23 23:00 38.1 C H 96 H 22 93 60 07/05/23 22:30 38.0 C H 96 H 24 91 07/05/23 22:30 111/60 07/05/23 22:00 38.0 C H 96 H 23 93 60 07/05/23 22:00 115/57 L 07/05/23 21:30 114/61 07/05/23 21:30 37.9 C H 95 H 23 91 07/05/23 21:00 37.9 C H 96 H 24 89 L 60 07/05/23 21:00 105/54 L 07/05/23 20:30 109/52 L 07/05/23 20:30 37.8 C H 96 H 14 88 L 07/05/23 20:30 CPAP 07/05/23 20:25 96 H 23 90 60 07/05/23 20:00 37.7 C H 97 H 18 92 60 07/05/23 20:00 114/60 07/05/23 20:00 60 07/05/23 19:57 37.7 C H 98 H 20 112/58 L 92 Laboratory Results 07/06/23 04:30 07/06/23 04:30 Coding Level of Care Code 55125 CRITICAL CARE 1ST 30-74M Diagnoses Acute and chronic respiratory failure J96.20 History of tracheostomy Z98.890 Chronic right-sided heart failure I50.812 Tobacco use Z72.0 COPD (chronic obstructive pulmonary disease) J44.9 Chronic respiratory failure J96.10 Pneumonia J18.9 Laterality: right Lung location: unspecified part of lung Pneumonia type: due to unspecified organism (HFpEF) heart failure with preserved ejection fraction I50.30 Anemia due to other cause, not classified D64.89 Anemia type: other cause Other causes of anemia: other cause, not classified CLL (chronic lymphocytic leukemia) C91.10 (7) Pneumonia Laterality: right Lung location: unspecified part of lung Pneumonia type: d ue to unspecified organism Qualified Code(s): J18.9 - Pneumonia, unspecified organism (9) Anemia Anemia type: other cause Other causes of anemia: other cause, not classified Qualified Code(s): D64.89 - Other specified anemias
[2023-07-06] MEDS: MULTI VIT W/MINERALS LIQUID 15 ML UDC NG SCH (08:09)
--- NOTE | 2023-07-06 08:21 | XRay Report ---
XR chest 1V portable HISTORY: Respiratory failure. COMPARISON: Chest CT 07/05/2023. FINDINGS: Endotracheal tube measures 4.4 cm from the melani. Nasogastric tube terminates below the di aphragm. The tip is not included on this study. No pneumothorax. The heart remains mildly enlarged. R ight greater than left airspace opacities and trace bilateral pleural effusions persist. Interstitial thickening likely represent superimposed congestive change. This is also similar to the prior study. IMPRESSION: 1. Stable lines and tubes. 2. Bilateral airspace opacities, right greater than the left, persist. 3. Superimposed congestive change is also similar to the prior study. ACT 112: Negative or not required by law. Electronically signed by: Roby Lane M.D. 07/06/2023 8:20 AM
[2023-07-06] MEDS: POLYETHYLENE (MIRALAX) 17 GM PACK PO SCH (08:50)
[2023-07-06] MEDS: PLASMA LYTE A IV SCH (08:50)
[2023-07-06] MEDS: LACTULOSE SYRUP 30 GM/45 ML UDP PO STA (08:51)
[2023-07-06] MEDS: ACETAMINOPHEN 1,000 MG/100 ML VIAL IV PRN (10:40)
[2023-07-06 11:08] LABS: Potassium Random Urine 69.3 mmol/L
[2023-07-06 11:16] LABS: Creatinine Urine Random 122.1 mg/dl
[2023-07-06 15:22] LABS: Hematocrit (blood only) 23.2 % (42.0-52.0); Hemoglobin 7.3 g/dl (14.0-18.0)
[2023-07-06 15:27] LABS: BUN Creatinine Ratio 21.5 (10-20); Calcium 8.6 mg/dl (8.6-10.3); Creatinine Clr Calc Pharmacy 65.4 ml/min; Est GFR (African American) 61.2 ml/min; Est GFR (Non-African American) 52.8 ml/min
[2023-07-07 04:36] LABS: Hematocrit (blood only) 24.4 % (42.0-52.0); Hemoglobin 7.8 g/dl (14.0-18.0); Mean Corpuscular Volume 96.8 fL (80.0-100.0); Mean Platelet Volume 12.9 fL (9.4-12.4); Nucleated RBC # (auto) 0.06 K/uL (0.00-0.12); Nucleated RBC % (auto) 0.1 %; Platelet Count 57 K/uL (130-400); RDW Coefficient of Variation 20.2 % (11.5-14.5); RDW Standard Deviation 67.3 fL (36.4-46.3); Red Blood Count 2.52 M/uL (4.70-6.10)
[2023-07-07 04:39] LABS: BUN Creatinine Ratio 20.1 (10-20); Calcium 8.9 mg/dl (8.6-10.3); Creatinine Clr Calc Pharmacy 55.8 ml/min; Est GFR (African American) 50.4 ml/min; Est GFR (Non-African American) 43.5 ml/min; Magnesium 2.4 mg/dl (1.7-2.4); Phosphorus 4.1 mg/dl (2.5-4.9)
[2023-07-07 05:58] LABS: iSTAT Allen Test Pass; iSTAT Art Bld Gas pCO2 Correct 50 mmHg (35-46); iSTAT Art Bld Gas pH Corrected 7.313 (7.35-7.45); iSTAT Arterial Blood Gas HCO3 25 meg/L (19-24); iSTAT Arterial Blood Gas pCO2 48 mmHg (35-46); iSTAT Arterial Blood Gas pH 7.32 (7.35-7.45); iSTAT Arterial Blood Gas pO2 75 mmHg (80-95); iSTAT Arterial Blood Gas pO2 C 80; iSTAT Carbon Dioxide 27 mmol/L (24-31); iSTAT FiO2 50 %; iSTAT Hematocrit 21 % (42-52); iSTAT Hemoglobin 7.1 g/dl (14.0-18.0); iSTAT Potassium 3.9 mmol/L (3.3-5.0); iSTAT Site L Radial; iSTAT Sodium 138 mmol/L (135-144)
--- NOTE | 2023-07-07 07:06 | Hospitalist Progress Note ---
Date of Service July 07, 2023 Assessment & Plan (1) Pneumonia involving right lung: Plan Mr. Valiente is a 58-year-old male with PMH of chronic lymphocytic leukemia not on any medication now, COPD, chronic diastolic heart failure, chronic hypoxic respiratory failure, hypertension, selective deficiency of immunoglobulin and, dyslipidemia, thrombocytopenia presented to the ED with acute short of breath since the morning of arrival and needed intubation due to desaturation and shortness of breath with unresponsiveness at ED. He remains intubated at this time and declines any pursuit of trach at this time. Course complicated by fever, BEN, and lack of bowel movement. #Acute on chronic respiratory failure with hypercapnia/hypoxia requiring mechanical ventilation #Multilobar pneumonia #Severe sepsis POA: Likely secondary to above. Leukocytosis (iso CLL) and tachycardia at presentation. Lactate elevated. Patient presented with acute shortness of breath, needed intubation in the ED due to unresponsiveness and acute desaturation. Admitting CXR with multifocal airspace opacities, admitting ABG with hypercapnia and hypoxia. CT Chest on 07/05 with dense right > left consolidation, progressed since 05/22 Bronchoscopy on 07/05 with clear secretions MRSA is negative. Respiratory viral panel negative: vancomycin discontinued Patient intubated on 07/04, remains intubated at this time Patient is being managed in the ICU. Follow-up blood and sputum culture. Continue Cefepime at this time Trend daily CBC/BMP: ordered Vent/SBT per ICU #Fevers Potentially multifactorial Follow infectious work up, reduced medications that may contribute Consider CLL as etiology Follow fever curve and clinical status -TMAX 38 C, appears clinically improving #Sinus Tachycardia *resolved iso critical illness Monitor on telemetry #Constipation/Obstipation -Bowel regimen in place #Acute normocytic anemia #Chronic anemia of chronic disease No documented melena, bronchoscopy without alveolar hemorrhage, plan for CT abdomen pelvis. Status post 3 units so far, hemoglobin sub seven. Transfuse to maintain hemoglobin above 7. Hgb this am 7.9 Anemia labs reviewed: LDH 185, B12 281, Folate 19.85, Ferritin 304.9, retic 2.84 CT AB/P w/ con without signs of hematoma, apparent losses: diverticulosis, splenomegaly GI consult: no urgent need for EGD or GI intervention #BEN likely prerenal iso sepsis hypotension Cr. up to 1.69, baseline 0.9-1.2 Avoid nephrotoxic, maintain maps >65 Monitor UOP -UOP decreased, also note patient on chronic diuetics at home 80mg BID -holding in interim, will follow bmp #Hyperglycemia A1C 5.2% , ICU protocol #CLL #Chronic Leukocytosis #Splenomegaly was on ibrutinib started on 02/10/2021 and on hold since 2021 due to heart failure. White cell count in 40s to 50s. Peripheral smear with no evidence of transformation to acute leukemia. Follow-up with oncology upon discharge CBC ordered #Thrombocytopenia downtrending, monitor for signs of bleeding #COPD Emphysema on imaging Resume budesonide and formoterol when able #Chronic right-sided heart failure May 2023 echo with EF of 65 to 70%, grade 1 diastolic dysfunction. BNP elevated at 215. Chest x-ray consistent with mild congestion. Home regimen: Lasix 80mg BID Monitor for volume overload -Signs of ?edema on CXR -Discussed diuretics with ICU: plan for #HTN Now relatively hypotensive 2/2 sepsis. #GERD Continue home PPI OGT, TF per ICU Analgesia: Fentanyl Sedation: Propofol DVT SCDS 2/2 thrombocytopenia/anemia HOB 30 Ulcer: PPI IV hyperglycemia protocol per ICU Bowel regimen prn Indwelling cath Abx: Cefepime SBT per ICU Admission and Anticipated Discharge Date Admission Date: July 04, 2023 Subjective Remains febrile, TMAX 38 C throughout early am 07/07 Reports feeling "same" over the course of last 24 hours, notes right side, pleuritic chest pain along costal margin Denies nausea, vomiting. Reports no flatus at this time or bowel movement. Denies abdominal pain Reports subjective fever, but no other concerns when prompted. ON SBT on time of exam Physical Exam Constitutional: WD/WN, vitals as above alert follows commands Respiratory: mechanical breath sounds, occasional rhonchi appreciated Cardiovascular: RRR, no murmur, no edema Gastrointestinal (Abdomen): distended, firm, nontender, BS+ Results & Data Results & Data Vital Signs (Past 12 Hours) Vital Signs Temp Pulse Resp BP Pulse Ox O2 Del Method FiO2 07/07/23 06:02 26 H 50 07/07/23 06:00 37.8 C H 87 26 H 93 07/07/23 05:00 38.0 C H 94 H 22 109/56 L 92 07/07/23 04:01 37.9 C H 100 H 32 H 102/67 91 07/07/23 04:00 37.9 C H 99 H 30 H 92 07/07/23 04:00 50 07/07/23 03:38 93 H 24 90 50 07/07/23 03:00 37.9 C H 91 H 23 103/55 L 92 07/07/23 02:00 38.0 C H 91 H 22 103/52 L 92 07/07/23 01:00 38.0 C H 94 H 22 104/66 92 07/07/23 00:30 38.0 C H 93 H 22 92 07/07/23 00:00 95 H 07/07/23 00:00 37.9 C H 93 H 24 103/54 L 91 07/07/23 00:00 50 07/06/23 23:41 92 H 23 91 50 07/06/23 23:30 37.9 C H 95 H 22 90 07/06/23 23:00 37.8 C H 95 H 23 112/58 L 90 07/06/23 22:30 37.8 C H 90 24 90 07/06/23 22:00 37.8 C H 94 H 23 107/54 L 91 07/06/23 21:30 37.7 C H 94 H 24 93 07/06/23 21:00 37.6 C H 91 H 22 113/53 L 93 07/06/23 20:30 37.6 C H 95 H 22 92 07/06/23 20:00 37.6 C H 95 H 26 H 117/61 96 07/06/23 19:55 90 23 93 50 07/06/23 19:42 50 07/06/23 19:42 Mechanical Vent 50 07/06/23 19:30 37.6 C H 91 H 22 94 Laboratory Results Short CBC 07/06/23 07/07/23 Range/Units 14:54 04:00 WBC 44.60 H* (4.8-10.8) K/ul Hgb 7.3 L 7.8 L (14.0-18.0) g/dl Hct 23.2 L 24.4 L (42.0-52.0) % Plt Count 57 L (130-400) K/uL BMP 07/06/23 07/07/23 14:54 04:00 Sodium 140 139 Potassium 4.0 4.0 Chloride 106 105 Carbon Dioxide 27 26 BUN 31 H 34 H Creatinine 1.44 H 1.69 H Glucose 129 H 136 H Calcium 8.6 8.9 Medications Administered Home Medications Medication Instructions Recorded Confirmed Last Taken tiotropium bromide 18 mcg capsule 18 mcg inhalation DAILY 06/25/22 07/04/23 Unknown with inhalation device (Spiriva with HandiHaler) albuterol sulfate 90 mcg/actuation 2 puff inhalation Q4 PRN Shortness 05/22/23 07/04/23 Unknown aerosol inhaler Of Breath Or Wheezing epinephrine 0.3 mg/0.3 mL 0.3 mg IM UD PRN bee stings 05/22/23 07/04/23 Unknown injection, auto-injector (EpiPen) fluticasone propionate 230 2 puff inhalation AMHS 05/22/23 07/04/23 Unknown mcg-salmeterol 21 mcg/actuation HFA inhaler (Advair HFA) furosemide 80 mg tablet 80 mg PO BID 05/22/23 07/04/23 Unknown omeprazole 20 mg capsule,delayed 20 mg PO DAILYBB 05/22/23 07/04/23 Unknown release cyanocobalamin (vitamin B-12) 500 1,000 mcg (2 x 500 mcg) PO QAM #30 06/10/23 07/04/23 Unknown mcg tablet tabs folic acid 1 mg tablet 1 mg PO QAM #30 tabs 06/10/23 07/04/23 Unknown Active Medications Generic Name Dose Route Start Last Admin Trade Name Freq PRN Reason Stop Dose Admin Budesonide 0.25 mg 07/04/23 19:00 07/06/23 19:55 Budesonide 0.25 Mg/2 Ml Vial (Pulmicort) NEB 08/03/23 18:59 0.25 mg BIDR SAM Administration Folic Acid 1 mg 07/05/23 10:45 07/06/23 08:09 Folic Acid 1 Mg Tab PO 08/04/23 10:44 1 mg QAM SAM Administration Formoterol Fumarate 20 mcg 07/04/23 19:00 07/06/23 19:55 Formoterol 20 Mcg/2 Ml Vial INH 08/03/23 18:59 20 mcg BIDR SAM Administration Propofol 1,000 mg in 100 mls @ 21 mls/hr 07/04/23 11:15 07/07/23 06:56 Diprivan IV 07/07/23 11:14 35 mcg/kg/min .Q4H46M SAM 21 mls/hr Titration Protocol 35 MCG/KG/MIN Cefepime HCl 2,000 mg/ Syringe 20 mls @ 5 mls/min 07/04/23 20:00 07/07/23 04:55 IV 07/11/23 19:59 5 mls/min Q8H SAM Administration Protocol Pantoprazole Sodium 40 mg/ 10 mls @ 5 mls/min 07/05/23 09:00 07/06/23 20:09 Syringe IV 08/04/23 08:59 5 mls/min BID SAM Administration Fentanyl Citrate 2,500 mcg in 250 mls @ 7.5 mls/hr 07/05/23 10:15 07/07/23 06:56 Fentanyl Citrate IV 07/19/23 10:14 75 mcg/hr .[id number] SAM 7.5 mls/hr Titration Protocol 75 MCG/HR Acetaminophen 1,000 mg in 100 mls @ 400 mls/hr 07/06/23 10:00 07/06/23 11:09 Ofirmev IV 07/09/23 09:59 Infused Q8H PRN Infusion Fever Multivitamins/Minerals 15 ml 07/06/23 09:00 07/06/23 08:09 Multi Vit W/Minerals Liquid 15 Ml Udc NG 08/05/23 08:59 15 ml QAM SAM Administration Nutritional Formula 1,000 ml 07/05/23 11:30 07/07/23 01:23 Peptamen Intense Vhp 1.0 Christiano 1,000 Ml Bag OG 08/04/23 11:29 1,000 ml UD SAM Administration Protocol Polyethylene Glycol 17 gm 07/06/23 09:00 07/06/23 08:50 Polyethylene (Miralax) 17 Gm Pack PO 08/05/23 08:59 17 gm DAILY SAM Administration Propofol 20 mg 07/04/23 11:13 07/05/23 00:25 Propofol Bolus From Bag IV 07/07/23 11:12 20 mg Q5M PRN Administration Sedation Sterile Water 30 ml 07/05/23 11:30 07/07/23 04:55 Tube Feeding Water Flush OG 08/04/23 11:29 30 ml Q4H SAM Administration Thiamine HCl 100 mg 07/05/23 10:45 07/06/23 08:09 Thiamine Hcl 100 Mg Tab PO 08/04/23 10:44 100 mg QAM SAM Administration (1) Pneumonia involving right lung Lung location: upper lobe of lung Pneumonia type: due to unspecified organism Qualified Code(s): J18.9 - Pneumonia, unspecified organism
--- NOTE | 2023-07-07 08:37 | Gastrointestinal Consultation ---
Date of Consultation July 07, 2023 Assessment & Plan (1) Anemia: Anemia etiology is multifactorial including CLL, chronic disease including COPD, acute pneumonia and sepsis. There is no evidence of gross GI bleeding. (2) Constipation: Has been given Miralax w/o effect thus far. Constipation likely secondary to narcotics, sedation, stress. There was no obstruction or other acute abnormalities on CT on arrival. Plan Would avoid endoscopy during this pt's acute cardio/pulmonary illness (pneumonia, febrile, sepsis, vented currently w CP). Would reconsider if obvious gross GI bleeding and further drop in Hb/Hct and significant increase in BUN. He had been on a spontaneous breathing trial when I examined him, but was experiencing CP and was just sedated and placed back on full vent. Regarding constipation and question GI bleed, would do a CARLOS to assess for melena and then enema - but would put this on hold until cardio-respiratory status is stabilized. He had previously refused but when awake, did indicate agreement to allow us to go forward with CARLOS and enema. GI will watch Hb/Hct BUN and stool outputs peripherally. Nursing to contact me when she believes that CARLOS and enema are appropriate (if continues w constipation/distention) and will return to examine pt then. Supervising Physician Co-Signing Physician Notes I have seen and examined the patient and agree with pe and plan as documented. Intubated on my exam with a distended abdomen slightly firm to the touch. He has no overt bleeding reported during this admission. Though a drop in hgb, no overt bleeding, and given current condition, would not pursue an endoscopy at this time unless overt bleeding is noted. Agree with further plan of care as documented. Consider alternative casues for anemia given history of cll, though reticulocyte counts are elevated - that is non specific in regards to indicating a gi bleed. History of Present Illness Reason for Consultation: hemglobin drop, abd pain poa;no clear source drop Requesting Physician: Dr. Ku Attending Physician: Susan Ku MD History of Present Illness Mr Amish Valiente is a 58 yr old male pt of Dr. Reva katz a hx of CLL (tx on hold since 2020 2nd to CHF), COPD, IGA deficiency, admitted for respiratory failure. GI is consulted for drop in Hb (6.5 on arrival, though his baseline seems to be about 7 in May, 8 in April 2023). Thus far no documentation of any gross GI bleeding. At the time of my exam, he has CP and is undergoing urgent EKG, w/u for cardiac event. I was able to verify w the pt that he has not had any black or red BMs at home and his nurse tells me he hasn't had a BM since admission. Allergies Allergy/AdvReac Type Severity Reaction Status Date / Time Penicillins Allergy Intermediate Hives Verified 07/04/23 12:36 bee venom protein (honey bee) Allergy Unknown ON [facility] MED Verified 07/04/23 12:36 LIST Home Medications Medication Instructions Recorded Confirmed Type tiotropium bromide 18 mcg capsule 18 mcg inhalation DAILY 06/25/22 07/04/23 History with inhalation device (Spiriva with HandiHaler) albuterol sulfate 90 mcg/actuation 2 puff inhalation Q4 PRN Shortness 05/22/23 07/04/23 History aerosol inhaler Of Breath Or Wheezing epinephrine 0.3 mg/0.3 mL 0.3 mg IM UD PRN bee stings 05/22/23 07/04/23 History injection, auto-injector (EpiPen) fluticasone propionate 230 2 puff inhalation AMHS 05/22/23 07/04/23 History mcg-salmeterol 21 mcg/actuation HFA inhaler (Advair HFA) furosemide 80 mg tablet 80 mg PO BID 05/22/23 07/04/23 History omeprazole 20 mg capsule,delayed 20 mg PO DAILYBB 05/22/23 07/04/23 History release cyanocobalamin (vitamin B-12) 500 1,000 mcg (2 x 500 mcg) PO QAM #30 06/10/23 07/04/23 Rx mcg tablet tabs folic acid 1 mg tablet 1 mg PO QAM #30 tabs 06/10/23 07/04/23 Rx Patient History Medical History (Updated 07/07/23 @ 08:55 by BLAYNE Hatch) Acute and chronic respiratory failure 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] HTN (hypertension) Lung nodules Chronic right-sided heart failure Tobacco use Chronic respiratory failure COPD (chronic obstructive pulmonary disease) Chronic lymphocytic leukemia CHF (congestive heart failure) Necrotizing pneumonia CLL (chronic lymphocytic leukemia) Obesity COPD (chronic obstructive pulmonary disease) HLD (hyperlipidemia) HTN (hypertension) Acute respiratory failure with hypoxia Acute leukemia Surgical History (Updated 06/07/23 @ 09:30 by Luis Ott MD) History of tracheostomy Hx of appendectomy History of bronchoscopy 12/15/22 - @ [facility] [place] Family History (System 05/24/23 @ 07:31 by Lizzy Gupta) Other Heart disease Lung cancer Social History (System 05/24/23 @ 07:31 by Lizzy Gupta) Smoking Status: Current every day smoker Tobacco Type: Cigarettes Second Hand Exposure: No; Do You Dip or Chew Tobacco: No; Hx Alcohol Use: Yes Alcohol type: beer Alcohol Intake Frequency: 2-4 x/Month Hx Substance Use: No Preferred Language: Greenlandic Communication Ability: Impaired Sausage Inspector Required: No Beliefs That Will Affect Care: None Current Living Situation: Alone Feels Safe at Home: Yes Assistive Devices: Cane Review of Systems Review of Systems: ROS: Gen: + weakness, fevers Eyes: No eye redness, or pain, no recent vision changes Resp: + SOB on arrival, vented; does not appear SOB during exam Cardio: CP+ (right sided). + palpitations/rapid beats. GI: + diffuse abd pain and distention, constipation Denies N/V : Denies pain on urination Skin: No jaundice, itching or new rashes Physical Exam Constitutional: + ill appearing and cooperative C/o CP, appears anxious Eyes: PERRL, conjunctivae normal, anicteric sclerae ENMT: external ear and nose normal, oropharynx normal Neck: trachea midline, no thyromegaly Respiratory: + labored breathing (appears w some resp iratory effort but is ventilated) and + uses accessory muscles (slight, upper chest, neck); no cough and no nasal flaring Chest (Breasts): Additional Comments: HR 115 - 120, regular, no murmurs, Gastrointestinal (Abdomen): BS hypoactive, moderately firm but not taunt, moderately distended, tender w all palpation but no guarding, no evidence of severe pain on palpation Skin: no rashes, warm and dry Neurologic: PERRL, EOMI, accommodation nl, no face palsy, no dysarthria Lymphatic: no cervical or axillary lymphadenopathy Results & Data Vital Signs (Past 12 Hours) Vital Signs Temp Pulse Resp BP Pulse Ox FiO2 07/07/23 07:41 82 26 H 93 50 07/07/23 06:02 26 H 50 07/07/23 06:00 37.8 C H 87 26 H 93 07/07/23 05:00 38.0 C H 94 H 22 109/56 L 92 07/07/23 04:01 37.9 C H 100 H 32 H 102/67 91 07/07/23 04:00 37.9 C H 99 H 30 H 92 07/07/23 04:00 50 07/07/23 03:38 93 H 24 90 50 07/07/23 03:00 37.9 C H 91 H 23 103/55 L 92 07/07/23 02:00 38.0 C H 91 H 22 103/52 L 92 07/07/23 01:00 38.0 C H 94 H 22 104/66 92 07/07/23 00:30 38.0 C H 93 H 22 92 07/07/23 00:00 95 H 07/07/23 00:00 37.9 C H 93 H 24 103/54 L 91 07/07/23 00:00 50 07/06/23 23:41 92 H 23 91 50 07/06/23 23:30 37.9 C H 95 H 22 90 07/06/23 23:00 37.8 C H 95 H 23 112/58 L 90 07/06/23 22:30 37.8 C H 90 24 90 07/06/23 22:00 37.8 C H 94 H 23 107/54 L 91 07/06/23 21:30 37.7 C H 94 H 24 93 07/06/23 21:00 37.6 C H 91 H 22 113/53 L 93 Laboratory Results WBC 44, Hb 7.1, Hct 21, Plts 57, Na 139, K 4.0, CL 105, CO2 26, BUN 34, Cr 1.69, glucose Diagnostic Findings CTAP w IV 07/04/23: 1. No evidence of acute abnormality, in particular no intracranial hemorrhage is seen. 2. Diverticulosis without diverticulitis. Interval placement of a suture in the colon. 3. Stable splenomegaly. (1) Anemia Anemia type: other cause Other causes of anemia: other cause, not classified Qualified Code(s): D64.89 - Other specified anemias
[2023-07-07] MEDS: LACTULOSE SYRUP 30 GM/45 ML UDP PO STA (09:11)
--- NOTE | 2023-07-07 09:17 | XRay Report ---
XR chest 1V portable CLINICAL HISTORY: Respiratory failure. COMPARISON STUDY: Chest CT July 05, 2023. Chest radiograph July 06, 2023. FINDINGS: The tip of endotracheal tube is 5.6 cm above the melani. Tip of nasogastric tube is within the body of the stomach. There is no pneumothorax. Small right pleural effusion is unchanged. Bibasil ar opacities, greater on the right, are unchanged. Interstitial thickening is unchanged. IMPRESSION: 1. Satisfactory positioning of the endotracheal and nasogastric tubes. 2. No change in bilateral airspace opacities, greater on the right. The findings favor pneumonia. 3. Mild superimposed pulmonary edema, similar to prior study. ACT 112: Negative or not required by law. Electronically signed by: Chepe Laguna M.D. 07/07/2023 9:15 AM
[2023-07-07] MEDS ORDERED: PLASMA-LYTE A 1,000 ML IV SCH (10:15)
[2023-07-07] MEDS: PLASMA-LYTE A 500 ML IV SCH (11:23)
[2023-07-07] MEDS: PLASMA-LYTE A 1,000 ML IV SCH (11:58)
--- NOTE | 2023-07-07 12:21 | Ultrasound Report ---
BILATERAL UPPER EXTREMITY VENOUS DOPPLER ULTRASOUND CLINICAL HISTORY: DVT COMPARISON STUDY: No previous studies for comparison. TECHNIQUE: Sonography of the deep venous systems of both upper extremities was performed. FINDINGS: The bilateral internal jugular, subclavian, axillary, brachial, radial, ulnar, cephalic and basilic veins were patent. No deep venous thrombus was identified within the upper extremities. IMPRESSION: No deep venous thrombus within the upper extremities. ACT 112: Negative or not required by law. Electronically signed by: Chepe Laguna M.D. 07/07/2023 12:20 PM
[2023-07-07] MEDS: SOD PHOSPHATE/SOD BIPHOSPHATE ENEMA 132 ML BTL PR STA (12:54)
[2023-07-07] MEDS: METHYLNALTREXONE BROMIDE 12 MG/0.6 ML VIAL SQ ONE (12:54)
[2023-07-07] MEDS: bisacodyL 10 MG SUPP PR STA (12:55)
[2023-07-07] MEDS: SOD PHOSPHATE/SOD BIPHOSPHATE ENEMA 132 ML BTL PR ONE (12:55)
--- NOTE | 2023-07-07 13:02 | Communication Note ---
Date of Service: July 07, 2023 Revisited pt: abdomen distended, hypoactive BS. Digital rectal exam w/o mass. Return of brown/green loose stool on the glove (no gross Bleeding), Fleets given, then Dulcolax. CTAP w IV 07/05 reviewed: no obstruction or significant distention. Ordering Relistor. Has received Miralax/lactulose this morning as well.
[2023-07-07] MEDS: bisacodyL 5 MG TABEC PO STA (13:54)
[2023-07-07] MEDS: CEFEPIME 2,000 MG in SYRINGE 0 ML IV SCH (17:36)
--- NOTE | 2023-07-07 17:45 | Critical Care Progress Note ---
Date of Service July 07, 2023 Assessment & Plan (1) Acute and chronic respiratory failure: (2) History of tracheostomy: (3) Chronic right-sided heart failure: (4) Tobacco use: (5) COPD (chronic obstructive pulmonary disease): (6) Chronic respiratory failure: (7) Pneumonia: (8) (HFpEF) heart failure with preserved ejection fraction: (9) Anemia: (10) CLL (chronic lymphocytic leukemia): Plan Reason Critically Ill: 57-year-old male past medical history of CML not on any treatment, HFrEF, COPD on oxygen, GERD was brought in intubated for respiratory distress Neuro - [facility] ICU: Negative Propofol and fentanyl for sedation Cardiac - --Right-sided likely pleuritic chest pain Coming from right-sided pneumonia it seems like EKG repeated twice on 07/07/[address]-T wave changes --Elevated troponin Likely secondary to type II AL EKG does not show any ST-T wave changes Continue to monitor -- HFpEF BNP 215 at the time of presentation 2D echo 05/24/2023: EF 65 to 70%, grade 1 diastolic dysfunction, RV normal in size and function Respiratory - -- VDRF Multifactorial Likely secondary to COPD exacerbation secondary to entero-/rhinovirus Continue with ventilatory support Keep RASS -1 Respiratory bio fire negative for everything Procalcitonin 0.19 BNP 215 S/p bronch 07/05/2023, no evidence of alveolar hemorrhage Follow-up bronc culture CT chest 07/05/2023: Dense consolidative process in the right lower lobe Centrilobular and paraseptal emphysema appreciated bilaterally Minimal mediastinal and right hilar lymphadenopathy --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 Not in exacerbation On Advair and Spiriva at home GI - -- History of GERD Continue with pantoprazole RENAL/LYTES - -- BEN FeNa 0.2% , seems to be pre-renal Monitor BUN/creatinine Avoid nephrotoxic medications Strict ins and outs -- S/p hyperkalemia Could be an error given hyperleukocytosis - Ramon catheter ENDO - -- ICU hypoglycemia protocol HEME - -- History of CLL with hyperleukocytosis Not on any chemotherapy right now -- Acute anemia Got 4 units PRBC so far. Source of bleeding is unknown No documented melena, OGT suction is clean. Peripheral smear did not show any signs of schistocytes LDH normal, B12 and folic acid within normal limit. Bilirubin within normal limit, reticulocytes on the higher side this does go with acute blood loss CT abdomen pelvis 07/05/2023 does not show any signs of retroperitoneal bleed GI on board Monitor H&H, transfuse for hemoglobin less than 7 --Thrombocytopenia Continue to monitor ID - -- Multilobar pneumonia Mostly affecting the right side Procalcitonin 0.19 Nasal MRSA negative Continue with broad-spectrum antibiotics Follow sputum culture --Prophylaxis VTE: IPC GI: Pantoprazole twice daily Lines: Peripheral Diet: Tube feeds Plan: In/out: +917, urine output 1080 ABG 7.32/48/75 on 50%, PEEP of 8 H&H is stable Patient's creatinine is still going up. FeNa 0.2% , seems to be pre-renal. Continue with IV fluids for the time being. GI on board. Will give another 30 g of lactulose continue with MiraLAX Given the swelling of the upper extremities Doppler was ordered for bilateral upper extremity which was negative. Continue with antibiotics I have personally spent 39 minutes of critical care time in the direct management of this patient. This is a life/limb threatening event. This includes time spent evaluating patient, direct bedside care, chart review, placing orders, interpretation of diagnostic studies, discussion with consultants, patient, and family members, as well as other required patient management activities. This time is exclusive of all separately billable procedures, and teaching time and separate from and in addition to any other critical care service time. Please note the above document was generated using voice recognition software. It may contain grammatical, syntax or spelling errors. Admission and Anticipated Discharge Date Admission Date: July 04, 2023 Subjective Patient seen and examined at bedside. No acute distress. Overnight he complained of right-sided chest pain for which EKG was done. He was also complaining of chest pain today when the fentanyl was turned off for sedation holiday It was mostly on the right side and worse when taking deep breaths Abdominal discomfort has improved. Still did not have any bowel movement. Review of Systems 2 Review of Systems: All systems reviewed & are unremarkable except as noted in Subjective and Unobtainable due to endotracheal tube Physical Exam 2 Physical Exam: Constitutional: No acute distress HEENT: PERRLA, trach scar present Respiratory system: Decreased air entry bilaterally, no wheeze, rhonchi, positive crackles bilaterally CVS: S1-S2 positive, no murmurs or gallops Abdomen: Soft, distended, mild diffuse tenderness, no rebound, positive bowel sounds x4, obese Extremities: +2 pulses bilaterally radialis/ dorsalis pedis, no cyanosis, +1 pitting edema bilateral lower extremity as well as upper extremity. Neuro: RASS -1, answering questions appropriately Psych: Unable to assess G/U: Positive Ramon Skin: no rashes, warm and dry Lymphatic: no cervical or axillary lymphadenopathy Results & Data Results & Data Vital Signs (Past 12 Hours) Vital Signs Temp Pulse Resp BP Pulse Ox Pulse Ox O2 Del Method 07/07/23 16:00 36.6 C 78 26 H 96 Mechanical Vent 07/07/23 16:00 99/53 L 07/07/23 16:00 78 07/07/23 16:00 07/07/23 15:00 104/57 L 07/07/23 15:00 36.7 C 83 26 H 95 07/07/23 14:37 83 07/07/23 14:30 83 26 H 96 07/07/23 14:00 102/44 L 07/07/23 14:00 36.8 C 81 26 H 97 07/07/23 13:00 113/58 L 07/07/23 13:00 31.4 C L 82 26 H 97 07/07/23 12:00 07/07/23 12:00 91/50 L 07/07/23 12:00 37.6 C H 78 26 H 96 Mechanical Vent 07/07/23 11:00 96 07/07/23 11:00 37.8 C H 86 26 H 94 07/07/23 11:00 99/50 L 07/07/23 11:00 CPAP, Mechanical Vent 07/07/23 10:20 90 27 H 93 07/07/23 10:00 101/50 L 07/07/23 10:00 38.0 C H 89 26 H 93 07/07/23 09:00 108/60 07/07/23 09:00 38.4 C H 110 H 28 H 91 07/07/23 08:44 166/83 H 07/07/23 08:44 38.2 C H 117 H 28 H 98 07/07/23 08:08 102/50 L 07/07/23 08:08 37.9 C H 87 26 H 95 07/07/23 08:00 101/51 L 07/07/23 08:00 37.9 C H 83 26 H 95 07/07/23 07:41 82 26 H 93 07/07/23 07:00 97/52 L 07/07/23 07:00 37.8 C H 81 26 H 92 Mechanical Vent 07/07/23 06:02 26 H 07/07/23 06:00 104/53 L 07/07/23 06:00 37.8 C H 87 26 H 93 O2 Del Method FiO2 07/07/23 16:00 07/07/23 16:00 07/07/23 16:00 07/07/23 16:00 60 07/07/23 15:00 07/07/23 15:00 07/07/23 14:37 07/07/23 14:30 60 07/07/23 14:00 07/07/23 14:00 07/07/23 13:00 07/07/23 13:00 07/07/23 12:00 60 07/07/23 12:00 07/07/23 12:00 60 07/07/23 11:00 Mechanical Vent 07/07/23 11:00 07/07/23 11:00 07/07/23 11:00 07/07/23 10:20 60 07/07/23 10:00 07/07/23 10:00 07/07/23 09:00 07/07/23 09:00 07/07/23 08:44 07/07/23 08:44 07/07/23 08:08 07/07/23 08:08 07/07/23 08:00 07/07/23 08:00 07/07/23 07:41 50 07/07/23 07:00 07/07/23 07:00 07/07/23 06:02 50 07/07/23 06:00 07/07/23 06:00 Laboratory Results 07/07/23 04:00 07/07/23 04:00 Coding Level of Care Code 29488 CRITICAL CARE 1ST 30-74M Diagnoses Acute and chronic respiratory failure J96.20 History of tracheostomy Z98.890 Chronic right-sided heart failure I50.812 Tobacco use Z72.0 COPD (chronic obstructive pulmonary disease) J44.9 Chronic respiratory failure J96.10 Pneumonia J18.9 Laterality: right Lung location: unspecified part of lung Pneumonia type: due to unspecified organism (HFpEF) heart failure with preserved ejection fraction I50.30 Anemia due to other cause, not classified D64.89 Anemia type: other cause Other causes of anemia: other cause, not classified CLL (chronic lymphocytic leukemia) C91.10 (7) Pneumonia Laterality: right Lung location: unspecified part of lung Pneumonia type: d ue to unspecified organism Qualified Code(s): J18.9 - Pneumonia, unspecified organism (9) Anemia Anemia type: other cause Other causes of anemia: other cause, not classified Qualified Code(s): D64.89 - Other specified anemias
[2023-07-07 18:24] LABS: BUN Creatinine Ratio 20.1 (10-20); Calcium 8.5 mg/dl (8.6-10.3); Creatinine Clr Calc Pharmacy 46.6 ml/min; Est GFR (African American) 40.1 ml/min; Est GFR (Non-African American) 34.6 ml/min; Potassium 3.9 mmol/L (3.5-5.1)
[2023-07-08 05:00] LABS: BUN Creatinine Ratio 18.8 (10-20); Calcium 8.3 mg/dl (8.6-10.3); Creatinine Clr Calc Pharmacy 39.7 ml/min; Est GFR (African American) 32.2 ml/min; Est GFR (Non-African American) 27.8 ml/min; Magnesium 2.5 mg/dl (1.7-2.4); Potassium 3.7 mmol/L (3.5-5.1)
--- NOTE | 2023-07-08 05:20 | Electrocardiogram Report ---
Test Reason : Blood Pressure : / mmHG Vent. Rate : 095 BPM Atrial Rate : 095 BPM P-R Int : 156 ms QRS Dur : 098 ms QT Int : 348 ms P-R-T Axes : 067 070 090 degrees QTc Int : 437 ms Normal sinus rhythm Possible Left atrial enlargement Borderline ECG When compared with ECG of 04-JUL-2023 14:36, No significant change was found Confirmed by Jase Smith ([id number]) on 07/08/2023 5:20:33 AM Referred By: REFERRED SELF Confirmed By:Jase Smith
[2023-07-08 05:21] LABS: Hematocrit (blood only) 21.5 % (42.0-52.0); Hemoglobin 6.5 g/dl (14.0-18.0); Mean Corpuscular Hemoglobin 29.5 pg (25.0-34.0); Mean Corpuscular Hgb Conc 30.2 g/dL (32.0-36.0); Mean Corpuscular Volume 97.7 fL (80.0-100.0); Mean Platelet Volume 12.6 fL (9.4-12.4); Nucleated RBC # (auto) 0.03 K/uL (0.00-0.12); Nucleated RBC % (auto) 0.2 %; Platelet Count 39 K/uL (130-400); RDW Coefficient of Variation 19.9 % (11.5-14.5); White Blood Count 18.49 K/ul (4.8-10.8)
--- NOTE | 2023-07-08 05:21 | Electrocardiogram Report ---
Test Reason : Blood Pressure : / mmHG Vent. Rate : 117 BPM Atrial Rate : 117 BPM P-R Int : 178 ms QRS Dur : 092 ms QT Int : 312 ms P-R-T Axes : 071 081 081 degrees QTc Int : 435 ms Poor data quality, interpretation may be adversely affected Sinus tachycardia Possible Left atrial enlargement Incomplete right bundle branch block Nonspecific ST and T wave abnormality Abnormal ECG When compared with ECG of 07-JUL-2023 00:11, No significant change was found Confirmed by Jase Smith ([id number]) on 07/08/2023 5:21:08 AM Referred By: REFERRED SELF Confirmed By:Jase Smith
--- NOTE | 2023-07-08 05:22 | Electrocardiogram Report ---
Test Reason : Blood Pressure : / mmHG Vent. Rate : 086 BPM Atrial Rate : 086 BPM P-R Int : 158 ms QRS Dur : 096 ms QT Int : 358 ms P-R-T Axes : 082 064 067 degrees QTc Int : 428 ms Normal sinus rhythm Normal ECG When compared with ECG of 07-JUL-2023 08:46, No significant change was found Confirmed by Jase Smith ([id number] on 07/08/2023 5:21:44 AM Referred By: REFERRED SELF Confirmed By:Jase Smith
[2023-07-08 06:39] LABS: Hematocrit (blood only) 23.3 % (42.0-52.0); Mean Corpuscular Hemoglobin 29.5 pg (25.0-34.0); Mean Corpuscular Volume 98.3 fL (80.0-100.0); Mean Platelet Volume 12.9 fL (9.4-12.4); Nucleated RBC # (auto) 0.02 K/uL (0.00-0.12); Nucleated RBC % (auto) 0.1 %; Platelet Count 38 K/uL (130-400); RDW Coefficient of Variation 19.9 % (11.5-14.5); RDW Standard Deviation 67.6 fL (36.4-46.3); Red Blood Count 2.37 M/uL (4.70-6.10); White Blood Count 18.07 K/ul (4.8-10.8)
[2023-07-08 07:04] LABS: Basophils # (auto) 0.03 K/uL (0.00-0.20); Basophils % (auto) 0.2 %; Eosinophils # (auto) 0.07 K/uL (0.00-0.50); Eosinophils % (auto) 0.4 %; Immature Granulocytes # (auto) 0.02 K/uL (0.01-0.20); Immature Granulocytes % (auto) 0.1 %; Lymphocytes # (auto) 14.78 K/uL (1.20-3.40); Lymphocytes % (auto) 81.8 %; Monocytes % (auto) 11.1 %; Neutrophils # (auto) 1.17 K/uL (1.40-6.50); Neutrophils % (auto) 6.4 %; Polychromasia 1+; Smudge Cells Present
--- NOTE | 2023-07-08 07:07 | Hospitalist Progress Note ---
Date of Service July 08, 2023 Assessment & Plan (1) Pneumonia involving right lung: Plan Mr. Valiente is a 58-year-old male with PMH of chronic lymphocytic leukemia not on any medication now, COPD, chronic diastolic heart failure, chronic hypoxic respiratory failure, hypertension, selective deficiency of immunoglobulin and, dyslipidemia, thrombocytopenia presented to the ED with acute short of breath since the morning of arrival and needed intubation due to desaturation and shortness of breath with unresponsiveness at ED. He remains intubated at this time and declines any pursuit of trach at this time. Course complicated by fever, BEN, and lack of bowel movement. Fevers resolved-24 hours afebrile BEN likely ATN per nephrology Now passing stool, softer abdomen. #Acute on chronic respiratory failure with hypercapnia/hypoxia requiring mechanical ventilation #Multilobar pneumonia #Severe sepsis POA: Likely secondary to above. Leukocytosis (iso CLL) and tachycardia at presentation. Lactate elevated. Patient presented with acute shortness of breath, needed intubation in the ED due to unresponsiveness and acute desaturation. Admitting CXR with multifocal airspace opacities, admitting ABG with hypercapnia and hypoxia. CT Chest on 07/05 with dense right > left consolidation, progressed since 05/22 Bronchoscopy on 07/05 with clear secretions MRSA is negative. Respiratory viral panel negative: vancomycin discontinued Patient intubated on 07/04, remains intubated at this time Patient is being managed in the ICU. NGTD on 07/05 bronch cultures NGTD blood cultures, UA Continue Cefepime Trend daily CBC/BMP: ordered Vent/SBT per ICU #Fevers *resolved Potentially multifactorial Follow infectious work up, reduced medications that may contribute Consider CLL as etiology Follow fever curve and clinical status -TMAX 38 C, appears clinically improving #Sinus Tachycardia *resolved iso critical illness Monitor on telemetry #Constipation/Obstipation*improving -Bowel regimen in place #Acute normocytic anemia #Chronic anemia of chronic disease No documented melena, bronchoscopy without alveolar hemorrhage, plan for CT abdomen pelvis. Status post 4 units Transfuse to maintain hemoglobin above 7. Hgb this am 6.5 Anemia labs reviewed: LDH 185, B12 281, Folate 19.85, Ferritin 304.9, retic 2.84 CT AB/P w/ con without signs of hematoma, apparent losses: diverticulosis, splenomegaly GI consult: no urgent need for EGD or GI intervention 1 Unit PRBC ordered this am #BEN, likely 2/2 ATN likely prerenal iso sepsis hypotension, as well as contrast load Cr. up to 1.69, baseline 0.9-1.2 Avoid nephrotoxic, maintain maps >65 Monitor UOP -UOP decreased, also note patient on chronic diuretics at home 80mg BID -Trend BMP, will likely increase; avoid agressive hydration -Uric acid in am (potassium normal, calcium stable/low, phos mild elevation) #Hyperglycemia A1C 5.2% , ICU protocol #CLL #Chronic Leukocytosis *downtrending #Splenomegaly was on ibrutinib started on 02/10/2021 and on hold since 2021 due to heart f ailure. White cell count in 40s to 50s. Peripheral smear with no evidence of transformation to acute leukemia. Follow-up with oncology upon discharge CBC ordered in am Down trending in all cell lines #Thrombocytopenia downtrending, monitor for signs of bleeding #COPD Emphysema on imaging Resume budesonide and formoterol when able #Chronic right-sided heart failure May 2023 echo with EF of 65 to 70%, grade 1 diastolic dysfunction. BNP elevated at 215. Chest x-ray consistent with mild congestion. Home regimen: Lasix 80mg BID Monitor for volume overload -Signs of ?edema on CXR -Discussed diuretics with ICU: plan for holding in interim while ATN resolves #HTN Now relatively hypotensive 2/2 sepsis. #GERD Continue home PPI OGT, TF per ICU Analgesia: Fentanyl Sedation: Propofol DVT SCDS 2/2 thrombocytopenia/anemia HOB 30 Ulcer: PPI IV hyperglycemia protocol per ICU Bowel regimen prn Indwelling cath Abx: Cefepime SBT per ICU Admission and Anticipated Discharge Date Admission Date: July 04, 2023 Subjective Patient evaluated at bedside On SBT upon entering Denies any chest pain, palpitations, or other acute concerns this am UOP downtrending Physical Exam Constitutional: WD/WN, vitals as above follows commands Respiratory: mechanical breath sounds, scattered crackles Cardiovascular: tachcardic, DURGA, bilateral UE/LE edema Gastrointestinal (Abdomen): softer today than prior examinations Results & Data Results & Data Vital Signs (Past 12 Hours) Vital Signs Temp Pulse Resp BP Pulse Ox O2 Del Method FiO2 07/08/23 06:00 101/51 L 07/08/23 06:00 83 26 H 97 07/08/23 05:00 102/59 L 07/08/23 05:00 85 26 H 95 07/08/23 04:24 91 H 27 H 96 60 07/08/23 04:00 100/60 07/08/23 04:00 90 30 H 95 07/08/23 04:00 60 07/08/23 03:00 78 26 H 97 07/08/23 03:00 102/54 L 07/08/23 02:00 104/55 L 07/08/23 02:00 81 26 H 97 07/08/23 01:00 78 26 H 96 07/08/23 01:00 102/55 L 07/08/23 00:00 84 26 H 98 07/08/23 00:00 106/57 L 07/08/23 00:00 82 07/08/23 00:00 60 07/07/23 23:51 37.1 C 07/07/23 23:00 104/51 L 07/07/23 23:00 77 26 H 97 07/07/23 22:59 80 27 H 97 60 07/07/23 22:00 101/53 L 07/07/23 22:00 79 26 H 96 07/07/23 21:04 81 26 H 94 60 07/07/23 21:00 80 26 H 109/54 L 94 07/07/23 20:11 37.3 C 07/07/23 20:00 85 26 H 92 07/07/23 19:27 60 07/07/23 19:27 Mechanical Vent 60 Laboratory Results Short CBC 07/08/23 07/08/23 Range/Units 03:50 05:39 WBC 18.49 H D 18.07 H (4.8-10.8) K/ul Hgb 6.5 L* 7.0 L (14.0-18.0) g/dl Hct 21.5 L 23.3 L (42.0-52.0) % Plt Count 39 L 38 L (130-400) K/uL BMP 07/07/23 07/08/23 17:45 03:50 Sodium 141 140 Potassium 3.9 3.7 Chloride 106 105 Carbon Dioxide 25 25 BUN 41 H 46 H Creatinine 2.04 H D 2.45 H D Glucose 112 H 125 H Calcium 8.5 L 8.3 L Medications Administered Home Medications Medication Instructions Recorded Confirmed Last Taken tiotropium bromide 18 mcg capsule 18 mcg inhalation DAILY 06/25/22 07/04/23 Unknown with inhalation device (Spiriva with HandiHaler) albuterol sulfate 90 mcg/actuation 2 puff inhalation Q4 PRN Shortness 05/22/23 07/04/23 Unknown aerosol inhaler Of Breath Or Wheezing epinephrine 0.3 mg/0.3 mL 0.3 mg IM UD PRN bee stings 05/22/23 07/04/23 Unknown injection, auto-injector (EpiPen) fluticasone propionate 230 2 puff inhalation AMHS 05/22/23 07/04/23 Unknown mcg-salmeterol 21 mcg/actuation HFA inhaler (Advair HFA) furosemide 80 mg tablet 80 mg PO BID 05/22/23 07/04/23 Unknown omeprazole 20 mg capsule,delayed 20 mg PO DAILYBB 05/22/23 07/04/23 Unknown release cyanocobalamin (vitamin B-12) 500 1,000 mcg (2 x 500 mcg) PO QAM #30 06/10/23 07/04/23 Unknown mcg tablet tabs folic acid 1 mg tablet 1 mg PO QAM #30 tabs 06/10/23 07/04/23 Unknown Active Medications Generic Name Dose Route Start Last Admin Trade Name Freq PRN Reason Stop Dose Admin Budesonide 0.25 mg 07/04/23 19:00 07/07/23 19:35 Budesonide 0.25 Mg/2 Ml Vial (Pulmicort) NEB 08/03/23 18:59 0.25 mg BIDR SAM Administration Folic Acid 1 mg 07/05/23 10:45 07/07/23 09:11 Folic Acid 1 Mg Tab PO 08/04/23 10:44 1 mg QAM SAM Administration Formoterol Fumarate 20 mcg 07/04/23 19:00 07/07/23 19:35 Formoterol 20 Mcg/2 Ml Vial INH 08/03/23 18:59 20 mcg BIDR SAM Administration Propofol 1,000 mg in 100 mls @ 21 mls/hr 07/04/23 11:15 07/08/23 03:54 Diprivan IV 07/10/23 11:14 35 mcg/kg/min .Q4H46M SAM 21 mls/hr Administration Protocol 35 MCG/KG/MIN Pantoprazole Sodium 40 mg/ 10 mls @ 5 mls/min 07/05/23 09:00 07/07/23 20:26 Syringe IV 08/04/23 08:59 5 mls/min BID SAM Administration Fentanyl Citrate 2,500 mcg in 250 mls @ 7.5 mls/hr 07/05/23 10:15 07/07/23 19:08 Fentanyl Citrate IV 07/19/23 10:14 75 mcg/hr .[id number] SAM 7.5 mls/hr Titration Protocol 75 MCG/HR Acetaminophen 1,000 mg in 100 mls @ 400 mls/hr 07/06/23 10:00 07/07/23 10:46 Ofirmev IV 07/09/23 09:59 Infused Q8H PRN Infusion Fever Cefepime HCl 2,000 mg/ Syringe 20 mls @ 5 mls/min 07/07/23 17:00 07/08/23 04:22 IV 07/11/23 19:59 5 mls/min Q12H SAM Administration Protocol Multivitamins/Minerals 15 ml 07/06/23 09:00 07/07/23 09:11 Multi Vit W/Minerals Liquid 15 Ml Udc NG 08/05/23 08:59 15 ml QAM SAM Administration Nutritional Formula 1,000 ml 07/05/23 11:30 07/07/23 21:45 Peptamen Intense Vhp 1.0 Christiano 1,000 Ml Bag OG 08/04/23 11:29 1,000 ml UD SAM Administration Protocol Polyethylene Glycol 17 gm 07/06/23 09:00 07/07/23 09:11 Polyethylene (Miralax) 17 Gm Pack PO 08/05/23 08:59 17 gm DAILY SAM Administration Propofol 20 mg 07/04/23 11:13 07/05/23 00:25 Propofol Bolus From Bag IV 07/10/23 11:12 20 mg Q5M PRN Administration Sedation Sterile Water 30 ml 07/05/23 11:30 07/08/23 04:22 Tube Feeding Water Flush OG 08/04/23 11:29 30 ml Q4H SAM Administration Thiamine HCl 100 mg 07/05/23 10:45 07/07/23 09:11 Thiamine Hcl 100 Mg Tab PO 08/04/23 10:44 100 mg QAM SAM Administration (1) Pneumonia involving right lung Lung location: upper lobe of lung Pneumonia type: due to unspecified organism Qualified Code(s): J18.9 - Pneumonia, unspecified organism
--- NOTE | 2023-07-08 07:23 | Critical Care Progress Note ---
Date of Service July 08, 2023 Assessment & Plan (1) Acute and chronic respiratory failure: (2) History of tracheostomy: (3) Chronic right-sided heart failure: (4) Tobacco use: (5) COPD (chronic obstructive pulmonary disease): (6) Chronic respiratory failure: (7) Pneumonia: (8) (HFpEF) heart failure with preserved ejection fraction: (9) Anemia: (10) CLL (chronic lymphocytic leukemia): Plan Reason Critically Ill: 57-year-old male past medical history of CML not on any treatment, HFrEF, COPD on oxygen, GERD was brought in intubated for respiratory distress Neuro - [facility]: Negative Propofol and fentanyl for sedation Cardiac - --Right-sided likely pleuritic chest pain Coming from right-sided pneumonia it seems like EKG repeated twice on 07/07/[address]-T wave changes --Elevated troponin --> trending down Likely secondary to type II MA EKG does not show any ST-T wave changes Continue to monitor -- HFpEF BNP 215 at the time of presentation 2D echo 05/24/2023: EF 65 to 70%, grade 1 diastolic dysfunction, RV normal in size and function -- Bilateral upper extremity swelling Doppler negative bilateral upper extremity on 07/07/2023 Respiratory - -- VDRF Multifactorial Likely secondary to COPD exacerbation secondary to entero-/rhinovirus Continue with ventilatory support Keep RASS -1 Respiratory bio fire negative for everything Procalcitonin 0.19 BNP 215 S/p bronch 07/05/2023, no evidence of alveolar hemorrhage Follow-up bronc culture CT chest 07/05/2023: Dense consolidative process in the right lower lobe Centrilobular and paraseptal emphysema appreciated bilaterally Minimal mediastinal and right hilar lymphadenopathy --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 Not in exacerbation On Advair and Spiriva at home GI - -- History of GERD Continue with pantoprazole RENAL/LYTES - -- BEN --> still worsening FeNa 0.2% , seems to be pre-renal Monitor BUN/creatinine Avoid nephrotoxic medications Strict ins and outs -- S/p hyperkalemia Could be an error given hyperleukocytosis - Ramon catheter ENDO - -- ICU hypoglycemia protocol HEME - -- History of CLL with hyperleukocytosis Not on any chemotherapy right now -- Acute anemia Got 4 units PRBC so far. Will give another 1 unit on 07/08/2023 Source of bleeding is unknown No documented melena, OGT suction is clean. Peripheral smear did not show any signs of schistocytes LDH normal, B12 and folic acid within normal limit. Bilirubin within normal limit, reticulocytes on the higher side this does go with acute blood loss CT abdomen pelvis 07/05/2023 does not show any signs of retroperitoneal bleed GI on board Monitor H&H, transfuse for hemoglobin less than 7 --Thrombocytopenia Continue to monitor ID - -- Multilobar pneumonia Mostly affecting the right side Procalcitonin 0.19 Nasal MRSA negative Continue with broad-spectrum antibiotics Follow sputum culture --Prophylaxis VTE: IPC GI: Pantoprazole twice daily Lines: Peripheral Diet: Tube feeds Plan: In/out: +2.5 L, urine output 729 There has been drop in WBC, hemoglobin as well as platelets. Repeat CBC again shows hemoglobin of 7. Will transfuse 1 unit Patient did have large bowel movement overnight which was not melanotic. Patient still has very copious amount of secretions. Potassium being replaced. Given that the patient's creatinine is still worsening. Will get nephrology involved. Continue with antibiotics I have personally spent 35 minutes of critical care time in the direct management of this patient. This is a life/limb threatening event. This includes time spent evaluating patient, direct bedside care, chart review, placing orders, interpretation of diagnostic studies, discussion with consultants, patient, and family members, as well as other required patient management activities. This time is exclusive of all separately billable procedures, and teaching time and separate from and in addition to any other critical care service time. Please note the above document was generated using voice recognition software. It may contain grammatical, syntax or spelling errors. Admission and Anticipated Discharge Date Admission Date: July 04, 2023 Subjective Patient seen and examined at bedside. No acute distress, notable symptoms overnight Was on low-dose propofol and fentanyl at time of examination Answering all questions appropriately Denied any right-sided chest pain today No abdominal pain. He had multiple bowel movements overnight. Review of Systems 2 Review of Systems: All systems reviewed & are unremarkable except as noted in Subjective and Unobtainable due to endotracheal tube Physical Exam 2 Physical Exam: Constitutional: No acute distress HEENT: PERRLA, trach scar present Respiratory system: Decreased air entry bilaterally, no wheeze, rhonchi, positive crackles bilaterally CVS: S1-S2 positive, no murmurs or gallops Abdomen: Soft, distended, mild diffuse tenderness, no rebound, positive bowel sounds x4, obese Extremities: +2 pulses bilaterally radialis/ dorsalis pedis, no cyanosis, +1 pitting edema bilateral lower extremity as well as upper extremity. Neuro: RASS -1, answering questions appropriately Psych: Unable to assess G/U: Positive Ramon Skin: no rashes, warm and dry Lymphatic: no cervical or axillary lymphadenopathy Results & Data Results & Data Vital Signs (Past 12 Hours) Vital Signs Temp Pulse Resp BP Pulse Ox O2 Del Method FiO2 07/08/23 06:00 101/51 L 07/08/23 06:00 83 26 H 97 07/08/23 05:00 102/59 L 07/08/23 05:00 85 26 H 95 07/08/23 04:24 91 H 27 H 96 60 07/08/23 04:00 100/60 07/08/23 04:00 90 30 H 95 07/08/23 04:00 60 07/08/23 03:00 78 26 H 97 07/08/23 03:00 102/54 L 07/08/23 02:00 104/55 L 07/08/23 02:00 81 26 H 97 07/08/23 01:00 78 26 H 96 07/08/23 01:00 102/55 L 07/08/23 00:00 84 26 H 98 07/08/23 00:00 106/57 L 07/08/23 00:00 82 07/08/23 00:00 60 07/07/23 23:51 37.1 C 07/07/23 23:00 104/51 L 07/07/23 23:00 77 26 H 97 07/07/23 22:59 80 27 H 97 60 07/07/23 22:00 101/53 L 07/07/23 22:00 79 26 H 96 07/07/23 21:04 81 26 H 94 60 07/07/23 21:00 80 26 H 109/54 L 94 07/07/23 20:11 37.3 C 07/07/23 20:00 85 26 H 92 07/07/23 19:27 60 07/07/23 19:27 Mechanical Vent 60 Laboratory Results 07/08/23 05:39 07/08/23 03:50 Coding Level of Care Code 99073 CRITICAL CARE 1ST 30-74M Diagnoses Acute and chronic respiratory failure J96.20 History of tracheostomy Z98.890 Chronic right-sided heart failure I50.812 Tobacco use Z72.0 COPD (chronic obstructive pulmonary disease) J44.9 Chronic respiratory failure J96.10 Pneumonia J18.9 Laterality: right Lung location: unspecified part of lung Pneumonia type: due to unspecified organism (HFpEF) heart failure with preserved ejection fraction I50.30 Anemia due to other cause, not classified D64.89 Anemia type: other cause Other causes of anemia: other cause, not classified CLL (chronic lymphocytic leukemia) C91.10 (7) Pneumonia Laterality: right Lung location: unspecified part of lung Pneumonia type: d ue to unspecified organism Qualified Code(s): J18.9 - Pneumonia, unspecified organism (9) Anemia Anemia type: other cause Other causes of anemia: other cause, not classified Qualified Code(s): D64.89 - Other specified anemias
[2023-07-08] MEDS ORDERED: SODIUM CHLORIDE 0.9% 250 ML IV PRN (08:19)
--- NOTE | 2023-07-08 08:37 | Ultrasound Report ---
ULTRASOUND KIDNEYS AND BLADDER CLINICAL HISTORY: Acute renal insufficiency. COMPARISON STUDY: Abdominal CT dated 07/05/2023. TECHNIQUE: Portable real-time, grayscale, and color flow sonography of the kidneys and bladder is per formed. Images are reviewed in the transverse and longitudinal planes. FINDINGS: Kidneys: The kidneys are normal in size and echotexture. The right kidney measures 12.3 x 6.4 x 6.2 c m and the left kidney measures 12.1 x 5.2 x 6.1 cm. There is no hydronephrosis. No shadowing renal c alculi are identified. There is no sonographic evidence of contour deforming renal mass lesion. No pe rinephric fluid is identified. Bladder: The bladder is decompressed around a Ramon catheter and could not be assessed. Upper abdomen: Marked splenomegaly is noted. IMPRESSION: 1. The kidneys are normal in size and without hydronephrosis. 2. The bladder was decompressed around a Ramon catheter and could not be assessed. 3. Marked splenomegaly. ACT 112: Negative or not required by law. Electronically signed by: Leo Marcial M.D. 07/08/2023 8:36 AM
[2023-07-08] MEDS: POTASSIUM CHLORIDE / WTR 10 MEQ/100 ML PLCT IV SCH (08:45)
--- NOTE | 2023-07-08 08:59 | Communication Note ---
Date of Service: July 08, 2023 Chart reviewed. Constipation resolved. No gross GI bleeding Will plan for OP EGD/colonoscopy.. Our office will contact him to arrange. GI will sign off.
--- NOTE | 2023-07-08 11:07 | Nephrology Consultation ---
Date of Consultation July 08, 2023 Assessment & Plan (1) BEN (acute kidney injury): Came in with near normal Creat of 1.3 just 4 days ago and creat rising to 2.4 now. Making urine about 50 ml/hr since this AM On admission had elevated Lactic acid and Low BP with sepsis and resp failure from pneumonia and also got iv contrast---combination causing ATN with non oliguric BEN. needs supportive care--Good BP, o2 status. Good hgb--getting PRBC now. Avoid nephrotoxic agents. renal US and CT---reviewed--no Hydronephrosis. CXR from 07/07 is showing some Pulm edema also. avoid aggressive iv hydration as this is a case of ATN and not pre renal/volume depletion. risk of further worsening of Pulm edema with aggressive Hydration. ATN has not peaked yet--follow renal panel. No dialysis needed but not out of danger yet as he is still very sick overall. (2) Acute and chronic respiratory failure: from Pneumonia. 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 check uric acid in AM although low likelihood of tumor lysis gievn phos is barely high History of Present Illness Reason for Consultation: BEN Attending Physician: Susan Ku MD History of Present Illness 58/M with chronic lymphocytic leukemia not on any medication now, COPD, chronic diastolic heart failure, chronic hypoxic respiratory failure, hypertension, selective deficiency of immunoglobin M---gets IVIG dyslipidemia and thrombocytopenia now admitted with Sepsis, resp failure requiring intubation from Pneumonia on 07/04/2023. Creat was 1.3 on admission ( close to baseline of 1---1.2 as of ). Since admission slowly rising and is 2.4 today. Still critically ill and on vent. was admitted in [facility] last month Also for resp failure and multiple admissions for same. On admission 4 days ago W[place] [id number]!!! [place] [id number]. lactic acid was 4+ on Adx making urine--825 ml yesterday. BP is not low currently. ROS--unable to obtain. Intubated. Physical Exam Physical Exam: Remains unresponsive and sedated Constitutional: well developed, well nourished and + ill appearing ENMT: external ear and nose normal, oropharynx normal Neck: trachea midline, Respiratory: + respiratory distress (On mechanical ve ntilator) Auscultation: + diminished lung sounds, + crackles (Bilateral coarse crackles) and + wheezes (Occasional wheezing bilateral) Cardiovascular: Rate/Rhythm: regular rate, regular rhythm and + tachycardic Heart Sounds: normal S1 and normal S2; no murmur Extremities: + edema (Trace edema bilaterally) Gastrointestinal (Abdomen): Inspection/Auscultation: + abdomen distended (Stop) and normal bowel sounds Percussion/Palpation: abdomen soft ext-- Trace to 1+ edema Neurologic: On mechanical ventilator with sedation Allergies Allergy/AdvReac Type Severity Reaction Status Date / Time Penicillins Allergy Intermediate Hives Verified 07/04/23 12:36 bee venom protein (honey bee) Allergy Unknown ON [facility] MED Verified 07/04/23 12:36 LIST Home Medications Medication Instructions Recorded Confirmed Type tiotropium bromide 18 mcg capsule 18 mcg inhalation DAILY 06/25/22 07/04/23 History with inhalation device (Spiriva with HandiHaler) albuterol sulfate 90 mcg/actuation 2 puff inhalation Q4 PRN Shortness 05/22/23 07/04/23 History aerosol inhaler Of Breath Or Wheezing epinephrine 0.3 mg/0.3 mL 0.3 mg IM UD PRN bee stings 05/22/23 07/04/23 History injection, auto-injector (EpiPen) fluticasone propionate 230 2 puff inhalation AMHS 05/22/23 07/04/23 History mcg-salmeterol 21 mcg/actuation HFA inhaler (Advair HFA) furosemide 80 mg tablet 80 mg PO BID 05/22/23 07/04/23 History omeprazole 20 mg capsule,delayed 20 mg PO DAILYBB 05/22/23 07/04/23 History release cyanocobalamin (vitamin B-12) 500 1,000 mcg (2 x 500 mcg) PO QAM #30 06/10/23 07/04/23 Rx mcg tablet tabs folic acid 1 mg tablet 1 mg PO QAM #30 tabs 06/10/23 07/04/23 Rx Patient History Medical History Acute and chronic respiratory failure 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] HTN (hypertension) Lung nodules Chronic right-sided heart failure Tobacco use Chronic respiratory failure COPD (chronic obstructive pulmonary disease) Chronic lymphocytic leukemia CHF (congestive heart failure) Necrotizing pneumonia CLL (chronic lymphocytic leukemia) Obesity COPD (chronic obstructive pulmonary disease) HLD (hyperlipidemia) HTN (hypertension) Acute respiratory failure with hypoxia Acute leukemia Surgical History History of tracheostomy Hx of appendectomy History of bronchoscopy 12/15/22 - @ [facility] [place] Family History Other Heart disease Lung cancer Social History Smoking Status: Current every day smoker Tobacco Type: Cigarettes Second Hand Exposure: No; Do You Dip or Chew Tobacco: No; Hx Alcohol Use: Yes Alcohol type: beer Alcohol Intake Frequency: 2-4 x/Month Hx Substance Use: No Preferred Language: Urdu Communication Ability: Impaired Margarine Maker Required: No Beliefs That Will Affect Care: None Current Living Situation: Alone Feels Safe at Home: Yes Assistive Devices: Cane Results & Data Vital Signs (Past 12 Hours) Vital Signs Temp Pulse Resp BP Pulse Ox O2 Del Method FiO2 07/08/23 10:03 119 H 24 141/80 H 93 07/08/23 09:48 37 C 115 H 23 141/72 H 94 07/08/23 09:24 37.0 C 111 H 24 121/63 96 07/08/23 09:00 96 H 19 121/63 96 Mechanical Vent 50 07/08/23 08:30 84 26 H 98/51 L 95 Mechanical Vent 50 07/08/23 08:00 82 26 H 98/49 L 95 07/08/23 07:26 79 24 97 50 07/08/23 07:00 81 26 H 100/50 L 97 07/08/23 06:00 101/51 L 07/08/23 06:00 83 26 H 97 07/08/23 05:00 102/59 L 07/08/23 05:00 85 26 H 95 07/08/23 04:24 91 H 27 H 96 60 07/08/23 04:00 100/60 07/08/23 04:00 90 30 H 95 07/08/23 04:00 60 07/08/23 03:00 78 26 H 97 07/08/23 03:00 102/54 L 07/08/23 02:00 104/55 L 07/08/23 02:00 81 26 H 97 07/08/23 01:00 78 26 H 96 07/08/23 01:00 102/55 L 07/08/23 00:00 84 26 H 98 07/08/23 00:00 106/57 L 07/08/23 00:00 82 07/08/23 00:00 60 07/07/23 23:51 37.1 C
[2023-07-08] MEDS: SENNOSIDES 8.8 MG/5 ML UDC PO SCH (12:34)
[2023-07-08 16:44] LABS: Hematocrit (blood only) 25.8 % (42.0-52.0); Hemoglobin 7.9 g/dl (14.0-18.0); Mean Corpuscular Hemoglobin 30.2 pg (25.0-34.0); Mean Corpuscular Hgb Conc 30.6 g/dL (32.0-36.0); Mean Corpuscular Volume 98.5 fL (80.0-100.0); Mean Platelet Volume 13.5 fL (9.4-12.4); Nucleated RBC # (auto) 0.04 K/uL (0.00-0.12); Nucleated RBC % (auto) 0.2 %; Platelet Count 38 K/uL (130-400); RDW Coefficient of Variation 19.7 % (11.5-14.5); RDW Standard Deviation 68.2 fL (36.4-46.3); Red Blood Count 2.62 M/uL (4.70-6.10); White Blood Count 23.39 K/ul (4.8-10.8)
[2023-07-08 17:33] LABS: Basophils # (auto) 0.04 K/uL (0.00-0.20); Basophils % (auto) 0.2 %; Echinocytes 1+; Eosinophils % (auto) 0.4 %; Immature Granulocytes # (auto) 0.04 K/uL (0.01-0.20); Immature Granulocytes % (auto) 0.2 %; Lymphocytes # (auto) 19.58 K/uL (1.20-3.40); Lymphocytes % (auto) 83.7 %; Monocytes # (auto) 2.32 K/uL (0.11-0.59); Monocytes % (auto) 9.9 %; Neutrophils # (auto) 1.31 K/uL (1.40-6.50); Neutrophils % (auto) 5.6 %
[2023-07-09 04:33] LABS: Hematocrit (blood only) 22.5 % (42.0-52.0); Mean Corpuscular Hgb Conc 31.1 g/dL (32.0-36.0); Mean Corpuscular Volume 96.6 fL (80.0-100.0); Mean Platelet Volume 13.5 fL (9.4-12.4); Nucleated RBC # (auto) 0.02 K/uL (0.00-0.12); Nucleated RBC % (auto) 0.1 %; Platelet Count 38 K/uL (130-400); RDW Coefficient of Variation 19.5 % (11.5-14.5); RDW Standard Deviation 64.6 fL (36.4-46.3); Red Blood Count 2.33 M/uL (4.70-6.10); White Blood Count 15.74 K/ul (4.8-10.8)
[2023-07-09 04:50] LABS: Alanine Aminotransferase 11 U/L (7-52); Albumin Globulin Ratio 1.1 (0.9-2); Alkaline Phosphatase 172 U/L (34-104); Anion Gap 11 (3-11); Aspartate Aminotransferase 7 U/L (13-39); BUN Creatinine Ratio 19.9 (10-20); Blood Urea Nitrogen 58 mg/dl (6-23); Calcium 8.3 mg/dl (8.6-10.3); Carbon Dioxide 24 mmol/L (21-32); Chloride 105 mmol/L (98-107); Creatinine Clr Calc Pharmacy 33.4 ml/min; Est GFR (African American) 26.1 ml/min; Est GFR (Non-African American) 22.5 ml/min; Globulin 2.8 gm/dl (2.5-4.0); Glucose 120 mg/dl (70-99(Fasting)); Magnesium 2.6 mg/dl (1.7-2.4); Phosphorus 5.5 mg/dl (2.5-4.9); Potassium 3.9 mmol/L (3.5-5.1); Sodium 140 mmol/L (136-145); Total Protein 5.8 gm/dl (6.0-8.3); Uric Acid 7.3 mg/dl (2.6-7.2)
--- NOTE | 2023-07-09 07:06 | Hospitalist Progress Note ---
Date of Service July 09, 2023 Assessment & Plan (1) Pneumonia involving right lung: Plan Mr. Valiente is a 58-year-old male with PMH of chronic lymphocytic leukemia not on any medication now, COPD, chronic diastolic heart failure, chronic hypoxic respiratory failure, hypertension, selective deficiency of immunoglobulin and, dyslipidemia, thrombocytopenia presented to the ED with acute short of breath since the morning of arrival and needed intubation due to desaturation and shortness of breath with unresponsiveness at ED. He remains intubated at this time and declines any pursuit of trach at this time. Course complicated by fever, BEN, and lack of bowel movement. Fevers resolved-24 hours afebrile over 07/07-. TMAX 37.6 BEN likely ATN per nephrology, suspect renal function has yet to plateau and will continue to uptrend. Now passing stool, softer abdomen. HGB dropping; review of prior hematology consult revealed that losses likely 2/2 ongoing CLL and sepsis. B12/folate this admission wnl. Patient has recent admission in 05/2023 of respiratory failure ultimately requiring tracheostomy. Currently, SBT ongoing for "diaphragm" exercise rather than plan extubation. Given copious secretions and slow progress from a respiratory standpoint, extubation has been delayed to prevent reintubation. Heme consulted given similar presentation to recent administration and need for 5 U PRBC; still feels 2/2 sepsis at this time No signs of bleeding via GI losses. #Acute on chronic respiratory failure with hypercapnia/hypoxia requiring mechanical ventilation #Multilobar pneumonia #Severe sepsis POA: Likely secondary to above. Leukocytosis (iso CLL) and tachycardia at presentation. Lactate elevated. Patient presented with acute shortness of breath, needed intubation in the ED due to unresponsiveness and acute desaturation. Admitting CXR with multifocal airspace opacities, admitting ABG with hypercapnia and hypoxia. CT Chest on 07/05 with dense right > left consolidation, progressed since 05/22 Bronchoscopy on 07/05 with clear secretions MRSA is negative. Respiratory viral panel negative: vancomycin discontinued Patient intubated on 07/04, remains intubated at this time Patient is being managed in the ICU. NGTD on 07/05 bronch cultures NGTD blood cultures, UA Continue Cefepime Trend daily CBC/BMP: ordered Vent/SBT per ICU #Fevers *resolved Potentially multifactorial Follow infectious work up, reduced medications that may contribute Consider CLL as etiology Follow fever curve and clinical status #Sinus Tachycardia *resolved iso critical illness Monitor on telemetry #Constipation/Obstipation*improving -Bowel regimen in place #Acute normocytic anemia #Chronic anemia of chronic disease No documented melena, bronchoscopy without alveolar hemorrhage, plan for CT abdomen pelvis. Status post 5 units Transfuse to maintain hemoglobin above 7. Hgb this am 6.5 Anemia labs reviewed: LDH 185, B12 281, Folate 19.85, Ferritin 304.9, retic 2.84 CT AB/P w/ con without signs of hematoma, apparent losses: diverticulosis, splenomegaly GI consult: no urgent need for EGD or GI intervention #BEN, likely 2/2 ATN likely prerenal iso sepsis hypotension, as well as contrast load Cr. 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 White cell count in 40s to 50s. Peripheral smear with no evidence of transformation to acute leukemia. Follow-up with oncology upon discharge CBC ordered in am Down trending in all cell lines IgG 552/4 07/08, recommended previously by heme to infuse Igg 400mg/kg if less than <500 Heme consulted: NTD, likely sepsis -400mg/kg ordered IVIG #Thrombocytopenia *stable holding fast at 38 #COPD Emphysema on imaging Resume budesonide and formoterol when able SBT per ICU #Chronic right-sided heart failure May 2023 echo with EF of 65 to 70%, grade 1 diastolic dysfunction. BNP elevated at 215. Chest x-ray consistent with mild congestion. Home regimen: Lasix 80mg BID Monitor for volume overload -Signs of ?edema on CXR -Discussed diuretics with ICU: plan for holding in interim while ATN resolves #HTN Now relatively hypotensive 2/2 sepsis. #GERD Continue home PPI OGT, TF per ICU Analgesia: Fentanyl, analgesia holidays per ICU Sedation: Propofol, sedation holidays per ICU DVT SCDS 2/2 thrombocytopenia/anemia HOB 30 Ulcer: PPI IV hyperglycemia protocol per ICU Bowel regimen prn Indwelling cath Abx: Cefepime SBT per ICU Admission and Anticipated Discharge Date Admission Date: July 04, 2023 Subjective Patient seen and examined at bedside. NAEO Physical Exam Constitutional: WD/WN, vitals as above opens eyes to verbal stimuli Respiratory: mechanical breath sounds Gastrointestinal (Abdomen): soft, protuberant, nontender Results & Data Results & Data Vital Signs (Past 12 Hours) Vital Signs Temp Pulse Resp BP Pulse Ox O2 Del Method FiO2 07/09/23 06:00 112/52 L 07/09/23 06:00 93 H 27 H 91 07/09/23 05:00 90 27 H 91 07/09/23 05:00 105/53 L 07/09/23 04:00 37.6 C H 07/09/23 04:00 88 26 H 89 L 07/09/23 04:00 105/57 L 07/09/23 04:00 40 07/09/23 03:48 92 H 29 H 94 40 07/09/23 03:00 91 H 27 H 90 07/09/23 03:00 117/56 L 07/09/23 02:00 106/51 L 07/09/23 02:00 91 H 26 H 93 07/09/23 01:00 89 26 H 93 07/09/23 01:00 102/50 L 07/09/23 00:00 95 H 26 H 93 07/09/23 00:00 118/52 L 07/09/23 00:00 36.7 C 07/09/23 00:00 45 07/09/23 00:00 93 H 07/08/23 23:50 88 26 H 93 45 07/08/23 23:00 89 23 93 07/08/23 23:00 102/52 L 07/08/23 22:32 37.6 C H 07/08/23 22:00 93 H 27 H 94 07/08/23 22:00 113/54 L 07/08/23 21:00 89 26 H 93 07/08/23 21:00 101/49 L 07/08/23 20:31 89 26 H 93 45 07/08/23 20:00 92 H 26 H 96 07/08/23 20:00 108/51 L 07/08/23 20:00 Mechanical Vent 45 07/08/23 20:00 45 07/08/23 19:00 100/50 L 07/08/23 19:00 88 26 H 94 Laboratory Results Short CBC 07/08/23 07/09/23 Range/Units 16:03 04:06 WBC 23.39 H 15.74 H (4.8-10.8) K/ul Hgb 7.9 L 7.0 L (14.0-18.0) g/dl Hct 25.8 L 22.5 L (42.0-52.0) % Plt Count 38 L 38 L (130-400) K/uL BMP 07/09/23 04:06 Sodium 140 Potassium 3.9 Chloride 105 Carbon Dioxide 24 BUN 58 H Creatinine 2.91 H D Glucose 120 H Calcium 8.3 L Liver Function 07/09/23 Range/Units 04:06 Total Bilirubin 3.0 H (0.2-1.0) mg/dl AST 7 L (13-39) U/L ALT 11 (7-52) U/L Alkaline Phosphatase 172 H (34-104) U/L Albumin 3.0 L (3.4-5.0) gm/dl Diagnostic Findings ULTRASOUND KIDNEYS AND BLADDER CLINICAL HISTORY: Acute renal insufficiency. COMPARISON STUDY: Abdominal CT dated 07/05/2023. TECHNIQUE: Portable real-time, grayscale, and color flow sonography of the kidneys and bladder is performed. Images are reviewed in the transverse and longitudinal planes. FINDINGS: Kidneys: The kidneys are normal in size and echotexture. The right kidney measures 12.3 x 6.4 x 6.2 cm and the left kidney measures 12.1 x 5.2 x 6.1 cm. There is no hydronephrosis. No shadowing renal calculi are identified. There is no sonographic evidence of contour deforming renal mass lesion. No perinephric fluid is identified. Bladder: The bladder is decompressed around a Ramon catheter and could not be assessed. Upper abdomen: Marked splenomegaly is noted. IMPRESSION: 1. The kidneys are normal in size and without hydronephrosis. 2. The bladder was decompressed around a Ramon catheter and could not be assessed. 3. Marked splenomegaly. Medications Administered Home Medications Medication Instructions Recorded Confirmed Last Taken tiotropium bromide 18 mcg capsule 18 mcg inhalation DAILY 06/25/22 07/04/23 Unknown with inhalation device (Spiriva with HandiHaler) albuterol sulfate 90 mcg/actuation 2 puff inhalation Q4 PRN Shortness 05/22/23 07/04/23 Unknown aerosol inhaler Of Breath Or Wheezing epinephrine 0.3 mg/0.3 mL 0.3 mg IM UD PRN bee stings 05/22/23 07/04/23 Unknown injection, auto-injector (EpiPen) fluticasone propionate 230 2 puff inhalation AMHS 05/22/23 07/04/23 Unknown mcg-salmeterol 21 mcg/actuation HFA inhaler (Advair HFA) furosemide 80 mg tablet 80 mg PO BID 05/22/23 07/04/23 Unknown omeprazole 20 mg capsule,delayed 20 mg PO DAILYBB 05/22/23 07/04/23 Unknown release cyanocobalamin (vitamin B-12) 500 1,000 mcg (2 x 500 mcg) PO QAM #30 06/10/23 07/04/23 Unknown mcg tablet tabs folic acid 1 mg tablet 1 mg PO QAM #30 tabs 06/10/23 07/04/23 Unknown Active Medications Generic Name Dose Route Start Last Admin Trade Name Freq PRN Reason Stop Dose Admin Budesonide 0.25 mg 07/04/23 19:00 07/08/23 19:18 Budesonide 0.25 Mg/2 Ml Vial (Pulmicort) NEB 08/03/23 18:59 0.25 mg BIDR SAM Administration Folic Acid 1 mg 07/05/23 10:45 07/08/23 08:47 Folic Acid 1 Mg Tab PO 08/04/23 10:44 1 mg QAM SAM Administration Formoterol Fumarate 20 mcg 07/04/23 19:00 07/08/23 19:18 Formoterol 20 Mcg/2 Ml Vial INH 08/03/23 18:59 20 mcg BIDR SAM Administration Propofol 1,000 mg in 100 mls @ 18 mls/hr 07/04/23 11:15 07/09/23 03:18 Diprivan IV 07/10/23 11:14 30 mcg/kg/min .[id number] SAM 18 mls/hr Administration Protocol 30 MCG/KG/MIN Pantoprazole Sodium 40 mg/ 10 mls @ 5 mls/min 07/05/23 09:00 07/08/23 20:00 Syringe IV 08/04/23 08:59 5 mls/min BID SAM Administration Fentanyl Citrate 2,500 mcg in 250 mls @ 7.5 mls/hr 07/05/23 10:15 07/08/23 19:19 Fentanyl Citrate IV 07/19/23 10:14 75 mcg/hr .[id number] SAM 7.5 mls/hr Titration Protocol 75 MCG/HR Acetaminophen 1,000 mg in 100 mls @ 400 mls/hr 07/06/23 10:00 07/07/23 10:46 Ofirmev IV 07/09/23 09:59 Infused Q8H PRN Infusion Fever Cefepime HCl 2,000 mg/ Syringe 20 mls @ 5 mls/min 07/07/23 17:00 07/09/23 04:07 IV 07/11/23 19:59 5 mls/min Q12H SAM Administration Protocol Multivitamins/Minerals 15 ml 07/06/23 09:00 07/08/23 08:47 Multi Vit W/Minerals Liquid 15 Ml Udc NG 08/05/23 08:59 15 ml QAM SAM Administration Nutritional Formula 1,000 ml 07/05/23 11:30 07/08/23 23:33 Peptamen Intense Vhp 1.0 Christiano 1,000 Ml Bag OG 08/04/23 11:29 1,000 ml UD SAM Administration Protocol Polyethylene Glycol 17 gm 07/06/23 09:00 07/08/23 08:46 Polyethylene (Miralax) 17 Gm Pack PO 08/05/23 08:59 17 gm DAILY SAM Administration Propofol 20 mg 07/04/23 11:13 07/05/23 00:25 Propofol Bolus From Bag IV 07/10/23 11:12 20 mg Q5M PRN Administration Sedation Sennosides 8.8 mg 07/08/23 11:00 07/08/23 12:34 Sennosides 8.8 Mg/5 Ml Udc PO 08/07/23 10:59 8.8 mg DAILY SAM Administration Sterile Water 30 ml 07/05/23 11:30 07/09/23 04:07 Tube Feeding Water Flush OG 08/04/23 11:29 30 ml Q4H SAM Administration Thiamine HCl 100 mg 07/05/23 10:45 07/08/23 08:47 Thiamine Hcl 100 Mg Tab PO 08/04/23 10:44 100 mg QAM SAM Administration (1) Pneumonia involving right lung Lung location: upper lobe of lung Pneumonia type: due to unspecified organism Qualified Code(s): J18.9 - Pneumonia, unspecified organism
--- NOTE | 2023-07-09 08:40 | Oncology Consultation ---
Date of Consultation July 09, 2023 Assessment & Plan (1) CLL (chronic lymphocytic leukemia): (2) Multifocal pneumonia: (3) Acute hypercapnic respiratory failure: Plan -As discussed in last consult note his Anemia likely multifactorial due to infection and CLL. He has significant splenomegaly which is likely responsible for anemia and thrombocytopenia. I think he needs to start treatment but will defer to his primary senior web services developer -Recurrent infections likely from CLL. Can give IVIG 400mg/kg x1 dose while ip Will sign off at this time. [place] [facility] on discharge. Thanks for this consult History of Present Illness Reason for Consultation: CLL, anemia Attending Physician: Susan Ku MD History of Present Illness 58 year old with CLL admitted to [facility] with respiratory failure secondary to pneumonia. I had seen him during most recent admission about 1 month ago for same reason. Hematology consulted for anemia Allergies Allergy/AdvReac Type Severity Reaction Status Date / Time Penicillins Allergy Intermediate Hives Verified 07/04/23 12:36 bee venom protein (honey bee) Allergy Unknown ON [facility] Verified 07/04/23 12:36 LIST Home Medications Medication Instructions Recorded Confirmed Type tiotropium bromide 18 mcg capsule 18 mcg inhalation DAILY 06/25/22 07/04/23 History with inhalation device (Spiriva with HandiHaler) albuterol sulfate 90 mcg/actuation 2 puff inhalation Q4 PRN Shortness 05/22/23 07/04/23 History aerosol inhaler Of Breath Or Wheezing epinephrine 0.3 mg/0.3 mL 0.3 mg IM UD PRN bee stings 05/22/23 07/04/23 History injection, auto-injector (EpiPen) fluticasone propionate 230 2 puff inhalation AMHS 05/22/23 07/04/23 History mcg-salmeterol 21 mcg/actuation HFA inhaler (Advair HFA) furosemide 80 mg tablet 80 mg PO BID 05/22/23 07/04/23 History omeprazole 20 mg capsule,delayed 20 mg PO DAILYBB 05/22/23 07/04/23 History release cyanocobalamin (vitamin B-12) 500 1,000 mcg (2 x 500 mcg) PO QAM #30 06/10/23 07/04/23 Rx mcg tablet tabs folic acid 1 mg tablet 1 mg PO QAM #30 tabs 06/10/23 07/04/23 Rx Patient History Medical History Acute and chronic respiratory failure 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] HTN (hypertension) Lung nodules Chronic right-sided heart failure Tobacco use Chronic respiratory failure COPD (chronic obstructive pulmonary disease) Chronic lymphocytic leukemia CHF (congestive heart failure) Necrotizing pneumonia CLL (chronic lymphocytic leukemia) Obesity COPD (chronic obstructive pulmonary disease) HLD (hyperlipidemia) HTN (hypertension) Acute respiratory failure with hypoxia Acute leukemia Surgical History History of tracheostomy Hx of appendectomy History of bronchoscopy 12/15/22 [place] [facility] Family History Other Heart disease Lung cancer Social History Smoking Status: Current every day smoker Tobacco Type: Cigarettes Second Hand Exposure: No; Do You Dip or Chew Tobacco: No; Hx Alcohol Use: Yes Alcohol type: beer Alcohol Intake Frequency: 2-4 x/Month Hx Substance Use: No Preferred Language: Greek Communication Ability: Impaired Stick Welder Required: No Beliefs That Will Affect Care: None Current Living Situation: Alone Feels Safe at Home: Yes Assistive Devices: Cane Results & Data Vital Signs (Past 12 Hours) Vital Signs Temp Pulse Resp BP Pulse Ox FiO2 07/09/23 07:50 107 H 20 93 40 07/09/23 07:22 37.4 C 07/09/23 07:00 88 26 H 91 07/09/23 07:00 102/49 L 07/09/23 06:00 112/52 L 07/09/23 06:00 93 H 27 H 91 07/09/23 05:00 90 27 H 91 07/09/23 05:00 105/53 L 07/09/23 04:00 37.6 C H 07/09/23 04:00 88 26 H 89 L 07/09/23 04:00 105/57 L 07/09/23 04:00 40 07/09/23 03:48 92 H 29 H 94 40 07/09/23 03:00 91 H 27 H 90 07/09/23 03:00 117/56 L 07/09/23 02:00 106/51 L 07/09/23 02:00 91 H 26 H 93 07/09/23 01:00 89 26 H 93 07/09/23 01:00 102/50 L 07/09/23 00:00 95 H 26 H 93 07/09/23 00:00 118/52 L 07/09/23 00:00 36.7 C 07/09/23 00:00 45 07/09/23 00:00 93 H 07/08/23 23:50 88 26 H 93 45 07/08/23 23:00 89 23 93 07/08/23 23:00 102/52 L 07/08/23 22:32 37.6 C H 07/08/23 22:00 93 H 27 H 94 07/08/23 22:00 113/54 L 07/08/23 21:00 89 26 H 93 07/08/23 21:00 101/49 L
[2023-07-09 08:46] LABS: Bilirubin Direct 2.1 mg/dl (0-0.2); C Reactive Protein 23.71 mg/dl (0-0.5); Chol HDL Ratio 11.5 (0-5); Cholesterol 150 mg/dl (0-200); HDL Cholesterol 13 mg/dl; Triglycerides 254 mg/dl (0-150); VLDL Cholesterol 51 mg/dl (0-30)
[2023-07-09 09:04] LABS: LDL Cholesterol Direct 80 mg/dl
--- NOTE | 2023-07-09 10:38 | Nephrology Progress Note ---
Date of Service July 09, 2023 Assessment & Plan (1) BEN (acute kidney injury): Plan: Came in with near normal Creat of 1.3 But still uptrending to 2.9 today Making urine about 1 L yesterday. Electrolytes are stable and no indication for dialysis. On admission had elevated Lactic acid and Low BP with sepsis and resp failure from pneumonia and also got iv contrast---combination causing ATN with non oliguric BEN. needs supportive care--Good BP, o2 status. Good hgb- Avoid nephrotoxic agents. renal US and CT---reviewed--no Hydronephrosis. CXR from 07/07 is showing some Pulm edema also. avoid aggressive iv hydration as this is a case of ATN and not pre renal/volume depletion. risk of further worsening of Pulm edema with aggressive Hydration. ATN has not peaked yet--follow renal panel. No dialysis needed but not out of danger yet as he is still very sick overall. (2) Acute and chronic respiratory failure: Plan: from Pneumonia. Immunocompromised from Ig def s/p IVIG (3) Chronic lymphocytic leukemia: (4) Selective deficiency of immunoglobulin a [iga]: (5) Selective deficiency of immunoglobulin m [igm]: Plan: Immunocompromised from Ig def s/p IVIG. check uric acid in AM although low likelihood of tumor lysis gievn phos is barely high Admission and Anticipated Discharge Date Admission Date: July 04, 2023 Subjective Seen for acute kidney injury. Patient remains critically ill and intubated. Unable to give history. Review of Systems 2 Review of Systems: Unable to obtain due to intubation Physical Exam 2 Physical Exam: General exam: Intubated but opens eyes to voice HEENT: Pupils are equal and reactive to light Respiratory system: Clear breath sounds bilaterally. Gastrointestinal: Abdomen is soft, non distended, non tender, bowel sounds are present CVS: Regular rate and rhythm. No murmurs, rubs or gallops Musculoskeletal: No joint or muscle tenderness Extremities: Non tender, no edema, peripheral pulses are present Neuro: Opens eyes to voice no tremors, no focal neurological deficits Skin: No rashes Results & Data Vital Signs (Past 12 Hours) Vital Signs Temp Pulse Resp BP Pulse Ox FiO2 07/09/23 09:00 117 H 26 H 94 07/09/23 09:00 135/64 07/09/23 08:00 158/72 H 07/09/23 08:00 158/72 H 07/09/23 08:00 108 H 28 H 92 07/09/23 08:00 40 07/09/23 07:50 107 H 20 93 40 07/09/23 07:22 37.4 C 07/09/23 07:00 88 26 H 91 07/09/23 07:00 102/49 L 07/09/23 06:00 112/52 L 07/09/23 06:00 93 H 27 H 91 07/09/23 05:00 90 27 H 91 07/09/23 05:00 105/53 L 07/09/23 04:00 37.6 C H 07/09/23 04:00 88 26 H 89 L 07/09/23 04:00 105/57 L 07/09/23 04:00 40 07/09/23 03:48 92 H 29 H 94 40 07/09/23 03:00 91 H 27 H 90 07/09/23 03:00 117/56 L 07/09/23 02:00 106/51 L 07/09/23 02:00 91 H 26 H 93 07/09/23 01:00 89 26 H 93 07/09/23 01:00 102/50 L 07/09/23 00:00 95 H 26 H 93 07/09/23 00:00 118/52 L 07/09/23 00:00 36.7 C 07/09/23 00:00 45 07/09/23 00:00 93 H 07/08/23 23:50 88 26 H 93 45 07/08/23 23:00 89 23 93 07/08/23 23:00 102/52 L Laboratory Results 07/09/23 04:06 07/08/23 07/09/23 16:03 04:06 WBC 23.39 H 15.74 H RBC 2.62 L 2.33 L MCV 98.5 96.6 MCH 30.2 30.0 MCHC 30.6 L 31.1 L RDW Std Deviation 68.2 H 64.6 H RDW Coeff of Argenis 19.7 H 19.5 H Plt Count 38 L 38 L MPV 13.5 H 13.5 H Phosphorus 5.5 H Albumin 3.0 L
--- NOTE | 2023-07-09 12:36 | Critical Care Progress Note ---
Date of Service July 09, 2023 Assessment & Plan (1) Acute and chronic respiratory failure: (2) History of tracheostomy: (3) Chronic right-sided heart failure: (4) Tobacco use: (5) COPD (chronic obstructive pulmonary disease): (6) Chronic respiratory failure: (7) Pneumonia: (8) (HFpEF) heart failure with preserved ejection fraction: (9) Anemia: (10) CLL (chronic lymphocytic leukemia): Plan Reason Critically Ill: 57-year-old male past medical history of CML not on any treatment, HFrEF, COPD on oxygen, GERD was brought in intubated for respiratory distress Neuro - [facility] ICU: Negative Propofol and fentanyl for sedation Cardiac - --Right-sided likely pleuritic chest pain Coming from right-sided pneumonia it seems like EKG repeated twice on 07/07/[address]-T wave changes --Elevated troponin --> trending down Likely secondary to type II OK EKG does not show any ST-T wave changes Continue to monitor -- HFpEF BNP 215 at the time of presentation 2D echo 05/24/2023: EF 65 to 70%, grade 1 diastolic dysfunction, RV normal in size and function -- Bilateral upper extremity swelling Doppler negative bilateral upper extremity on 07/07/2023 Respiratory - -- VDRF Multifactorial Likely secondary to COPD exacerbation secondary to entero-/rhinovirus Continue with ventilatory support Keep RASS -1 Respiratory bio fire negative for everything Procalcitonin 0.19 BNP 215 S/p bronch 07/05/2023, no evidence of alveolar hemorrhage Follow-up bronc culture CT chest 07/05/2023: Dense consolidative process in the right lower lobe Centrilobular and paraseptal emphysema appreciated bilaterally Minimal mediastinal and right hilar lymphadenopathy --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 Not in exacerbation On Advair and Spiriva at home GI - -- History of GERD Continue with pantoprazole RENAL/LYTES - -- BEN --> still worsening FeNa 0.2% , seems to be pre-renal Monitor BUN/creatinine Avoid nephrotoxic medications Strict ins and outs -- S/p hyperkalemia Could be an error given hyperleukocytosis - Ramon catheter ENDO - -- ICU hypoglycemia protocol HEME - -- History of CLL with hyperleukocytosis Not on any chemotherapy right now -- Acute anemia Got 5 units PRBC so far. Source of bleeding is unknown No documented melena, OGT suction is clean. Peripheral smear did not show any signs of schistocytes LDH normal, B12 and folic acid within normal limit. Bilirubin within normal limit, reticulocytes on the higher side this does go with acute blood loss CT abdomen pelvis 07/05/2023 does not show any signs of retroperitoneal bleed GI on board Monitor H&H, transfuse for hemoglobin less than 7 --Thrombocytopenia Continue to monitor ID - -- Multilobar pneumonia Mostly affecting the right side Procalcitonin 0.19 Nasal MRSA negative Continue with broad-spectrum antibiotics Follow sputum culture --Prophylaxis VTE: IPC GI: Pantoprazole twice daily Lines: Peripheral Diet: Tube feeds Plan: In/out: +701, urine output 1066 Creatinine still trending up but it is nonoliguric. Likely ATN Hemoglobin trending down is most likely multifactorial. Will repeat H&H later today if it is less than 7 we will transfuse 1 more unit Daily SBT trials have been performed but because of copious secretions have been failing. Continue with pressure support. Hematology and oncology recommending 400 Mg per KG of IVIG. Continue with antibiotics I have personally spent 35 minutes of critical care time in the direct management of this patient. This is a life/limb threatening event. This includes time spent evaluating patient, direct bedside care, chart review, placing orders, interpretation of diagnostic studies, discussion with consultants, patient, and family members, as well as other required patient management activities. This time is exclusive of all separately billable procedures, and teaching time and separate from and in addition to any other critical care service time. Please note the above document was generated using voice recognition software. It may contain grammatical, syntax or spelling errors. Admission and Anticipated Discharge Date Admission Date: July 04, 2023 Subjective Patient seen and examined at bedside. No acute distress, no adverse events overnight Was on propofol and fentanyl at the time of examination RASS was -1. Denies any pleuritic chest pain No headache. Did have bowel movement which was nonbloody Review of Systems 2 Review of Systems: All systems reviewed & are unremarkable except as noted in Subjective Physical Exam 2 Physical Exam: Constitutional: No acute distress HEENT: PERRLA, trach scar present Respiratory system: Decreased air entry bilaterally, no wheeze, rhonchi, positive crackles bilaterally CVS: S1-S2 positive, no murmurs or gallops Abdomen: Soft, distended, mild diffuse tenderness, no rebound, positive bowel sounds x4, obese Extremities: +2 pulses bilaterally radialis/ dorsalis pedis, no cyanosis, +1 pitting edema bilateral lower extremity as well as upper extremity. Neuro: RASS -1, answering questions appropriately Psych: Normal mood and affect G/U: Positive Ramon Skin: no rashes, warm and dry Lymphatic: no cervical or axillary lymphadenopathy Results & Data Results & Data Vital Signs (Past 12 Hours) Vital Signs Temp Pulse Resp BP Pulse Ox O2 Del Method FiO2 07/09/23 11:03 101 H 26 H 07/09/23 11:03 140/67 07/09/23 11:01 107 H 31 H 99 07/09/23 11:01 149/115 H 07/09/23 11:00 99 H 27 H 97 07/09/23 10:00 103 H 26 H 94 07/09/23 10:00 133/62 07/09/23 09:00 117 H 26 H 94 07/09/23 09:00 135/64 07/09/23 08:00 158/72 H 07/09/23 08:00 158/72 H 07/09/23 08:00 108 H 28 H 92 07/09/23 08:00 40 07/09/23 07:50 107 H 20 93 40 07/09/23 07:22 37.4 C 07/09/23 07:20 Mechanical Vent 07/09/23 07:00 88 26 H 91 07/09/23 07:00 102/49 L 07/09/23 06:00 112/52 L 07/09/23 06:00 93 H 27 H 91 07/09/23 05:00 90 27 H 91 07/09/23 05:00 105/53 L 07/09/23 04:00 37.6 C H 07/09/23 04:00 88 26 H 89 L 07/09/23 04:00 105/57 L 07/09/23 04:00 40 07/09/23 03:48 92 H 29 H 94 40 07/09/23 03:00 91 H 27 H 90 07/09/23 03:00 117/56 L 07/09/23 02:00 106/51 L 07/09/23 02:00 91 H 26 H 93 07/09/23 01:00 89 26 H 93 02/17/24 01:00 102/50 L Laboratory Results 07/09/23 04:06 07/09/23 04:06 Coding Level of Care Code 43918 CRITICAL CARE 1ST 30-74M Diagnoses Acute and chronic respiratory failure J96.20 History of tracheostomy Z98.890 Chronic right-sided heart failure I50.812 Tobacco use Z72.0 COPD (chronic obstructive pulmonary disease) J44.9 Chronic respiratory failure J96.10 Pneumonia J18.9 Laterality: right Lung location: unspecified part of lung Pneumonia type: due to unspecified organism (HFpEF) heart failure with preserved ejection fraction I50.30 Anemia due to other cause, not classified D64.89 Anemia type: other cause Other causes of anemia: other cause, not classified CLL (chronic lymphocytic leukemia) C91.10 (7) Pneumonia Laterality: right Lung location: unspecified part of lung Pneumonia type: d ue to unspecified organism Qualified Code(s): J18.9 - Pneumonia, unspecified organism (9) Anemia Anemia type: other cause Other causes of anemia: other cause, not classified Qualified Code(s): D64.89 - Other specified anemias
[2023-07-09] MEDS ORDERED: IMMUNE GLOBULIN (HUMAN) SOLN IV ONE (14:11)
[2023-07-09] MEDS: Octagam 10% IVIG 5 gram bottle IV SCH (14:48)
[2023-07-09] MEDS: Octagam 10% IVIG 10 gram bottle IV SCH (15:32)
[2023-07-09] MEDS: Octagam 10% IVIG 20 gram bottle IV SCH (17:01)
[2023-07-10 05:49] LABS: BUN Creatinine Ratio 20.5 (10-20); Calcium 8.4 mg/dl (8.6-10.3); Creatinine Clr Calc Pharmacy 24.9 ml/min; Est GFR (African American) 18.3 ml/min; Est GFR (Non-African American) 15.8 ml/min; Magnesium 2.7 mg/dl (1.7-2.4); Phosphorus 5.6 mg/dl (2.5-4.9); Potassium 4.2 mmol/L (3.5-5.1)
[2023-07-10] MEDS ORDERED: SODIUM CHLORIDE 0.9% 250 ML IV PRN ×2 (06:11→07:02)
[2023-07-10 06:14] LABS: Hematocrit (blood only) 21.3 % (42.0-52.0); Hemoglobin 6.5 g/dl (14.0-18.0); Mean Corpuscular Hemoglobin 29.5 pg (25.0-34.0); Mean Corpuscular Hgb Conc 30.5 g/dL (32.0-36.0); Mean Corpuscular Volume 96.8 fL (80.0-100.0); Platelet Count 33 K/uL (130-400); White Blood Count 15.44 K/ul (4.8-10.8)
--- NOTE | 2023-07-10 07:04 | Hospitalist Progress Note ---
Date of Service July 10, 2023 Assessment & Plan (1) Pneumonia involving right lung: Plan Mr. Valiente is a 58-year-old male with PMH of chronic lymphocytic leukemia not on any medication now, COPD, chronic diastolic heart failure, chronic hypoxic respiratory failure, hypertension, selective deficiency of immunoglobulin and, dyslipidemia, thrombocytopenia presented to the ED with acute short of breath since the morning of arrival and needed intubation due to desaturation and shortness of breath with unresponsiveness at ED. He remains intubated at this time and declines any pursuit of trach at this time. Course complicated by fever, BEN, and lack of bowel movement. Fevers resolved-24 hours afebrile over 07/07-. TMAX 37.6 07/09. BEN likely ATN per nephrology, suspect renal function has yet to plateau and will continue to uptrend. Now passing stool, softer abdomen. HGB dropping; review of prior hematology consult revealed that losses likely 2/2 ongoing CLL and sepsis. B12/folate this admission wnl. Patient has recent admission in 05/2023 of respiratory failure ultimately requiring tracheostomy. Currently, SBT ongoing for "diaphragm" exercise rather than plan extubation. Given copious secretions and slow progress from a respiratory standpoint, extubation has been delayed to prevent reintubation. Heme consulted given similar presentation to recent administration. Now s/p 6 U PRBC; Heme feels 2/2 sepsis at this time. No signs of bleeding via GI losses. Worsening renal dysfunction 2/2 ATN Remains intubated. #Acute on chronic respiratory failure with hypercapnia/hypoxia requiring mechanical ventilation #Multilobar pneumonia #Severe sepsis POA: Likely secondary to above. Leukocytosis (iso CLL) and tachycardia at presentation. Lactate elevated. Patient presented with acute shortness of breath, needed intubation in the ED due to unresponsiveness and acute desaturation. Admitting CXR with multifocal airspace opacities, admitting ABG with hypercapnia and hypoxia. CT Chest on 07/05 with dense right > left consolidation, progressed since 05/22 Bronchoscopy on 07/05 with clear secretions MRSA is negative. Respiratory viral panel negative: vancomycin discontinued Patient intubated on 07/04, remains intubated at this time Patient is being managed in the ICU. NGTD on 07/05 bronch cultures; NGTD blood cultures, UA Continue Cefepime Trend daily CBC/BMP: ordered Vent/SBT per ICU #Fevers *resolved Potentially multifactorial Follow infectious work up, reduced medications that may contribute Consider CLL as etiology Follow fever curve and clinical status #Sinus Tachycardia *resolved iso critical illness Monitor on telemetry #Constipation/Obstipation*improving -Bowel regimen in place #Acute normocytic anemia #Chronic anemia of chronic disease No documented melena, bronchoscopy without alveolar hemorrhage, plan for CT abdomen pelvis. Status post 6 units Transfuse to maintain hemoglobin above 7. Hgb this am 6.5 Anemia labs reviewed: LDH 185, B12 281, Folate 19.85, Ferritin 304.9, retic 2.84 CT AB/P w/ con without signs of hematoma, apparent losses: diverticulosis, splenomegaly GI consult: no urgent need for EGD or GI intervention -1 Unit Prbc this am #BEN, likely 2/2 ATN likely prerenal iso sepsis hypotension, as well as contrast load Cr. 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 White cell count in 40s to 50s. Peripheral smear with no evidence of transformation to acute leukemia. Follow-up with oncology upon discharge CBC ordered in am Down trending in all cell lines IgG 552/4 07/08, recommended previously by heme to infuse Igg 400mg/kg if less than <500 Heme consulted: NTD, likely sepsis -400mg/kg ordered IVIG 07/09 #Thrombocytopenia *stable holding fast at 38 #COPD Emphysema on imaging Resume budesonide and formoterol when able SBT per ICU #Chronic right-sided heart failure May 2023 echo with EF of 65 to 70%, grade 1 diastolic dysfunction. BNP elevated at 215. Chest x-ray consistent with mild congestion. Home regimen: Lasix 80mg BID Monitor for volume overload -Signs of ?edema on CXR -Discussed diuretics with ICU: plan for holding in interim while ATN resolves #HTN Now relatively hypotensive 2/2 sepsis. #GERD Continue home PPI OGT, TF per ICU Analgesia: Fentanyl, analgesia holidays per ICU Sedation: Propofol, sedation holidays per ICU DVT SCDS 2/2 thrombocytopenia/anemia HOB 30 Ulcer: PPI IV hyperglycemia protocol per ICU Bowel regimen prn Indwelling cath Abx: Cefepime SBT per ICU Admission and Anticipated Discharge Date Admission Date: July 04, 2023 Subjective Required unit this am, no signs of bleeding noted NAEO noted Remains intubated, sedated Renal function worsening, oliguric Physical Exam Constitutional: WD/WN, vitals as above Respiratory: mechanical breath sounds, few crackles Cardiovascular: tachcyardic Gastrointestinal (Abdomen): soft, protuberant Results & Data Results & Data Vital Signs (Past 12 Hours) Vital Signs Temp Pulse Resp BP Pulse Ox O2 Del Method FiO2 07/10/23 06:00 86 26 H 93 Mechanical Vent 40 07/10/23 06:00 104/51 L 07/10/23 05:00 113/53 L 07/10/23 05:00 92 H 23 93 Mechanical Vent 40 07/10/23 04:00 105/50 L 07/10/23 04:00 85 26 H 94 Mechanical Vent 40 07/10/23 04:00 36.8 C 07/10/23 04:00 40 07/10/23 03:00 97/51 L 07/10/23 03:00 88 26 H 93 07/10/23 02:34 91 H 26 H 92 40 07/10/23 02:00 101/49 L 40 07/10/23 02:00 89 26 H 92 Mechanical Vent 07/10/23 01:00 98 H 29 H 94 07/10/23 01:00 123/59 L 07/10/23 00:00 113/54 L 07/10/23 00:00 94 H 27 H 92 07/10/23 00:00 36.9 C Mechanical Vent 40 07/10/23 00:00 40 07/10/23 00:00 90 07/09/23 23:23 97 H 27 H 93 40 07/09/23 23:00 93 H 27 H 92 07/09/23 23:00 108/52 L 07/09/23 22:00 104/49 L 07/09/23 22:00 95 H 27 H 91 07/09/23 21:00 114/49 L 07/09/23 21:00 95 H 26 H 94 07/09/23 20:00 94 H 26 H 92 07/09/23 20:00 92 H 26 H 110/55 L 94 07/09/23 20:00 Mechanical Vent 07/09/23 20:00 40 07/09/23 20:00 37.6 C H 07/09/23 19:36 94 H 30 H 95 40 Laboratory Results Short CBC 07/10/23 Range/Units 04:17 WBC 15.44 H (4.8-10.8) K/ul Hgb 6.5 L* (14.0-18.0) g/dl Hct 21.3 L (42.0-52.0) % Plt Count 33 L (130-400) K/uL BMP 07/10/23 04:17 Sodium 137 Potassium 4.2 Chloride 103 Carbon Dioxide 21 BUN 80 H D Creatinine 3.90 H D Glucose 113 H Calcium 8.4 L Liver Function 07/09/23 Range/Units 04:06 Direct Bilirubin 2.1 H (0-0.2) mg/dl Medications Administered Home Medications Medication Instructions Recorded Confirmed Last Taken tiotropium bromide 18 mcg capsule 18 mcg inhalation DAILY 06/25/22 07/04/23 Unknown with inhalation device (Spiriva with HandiHaler) albuterol sulfate 90 mcg/actuation 2 puff inhalation Q4 PRN Shortness 05/22/23 07/04/23 Unknown aerosol inhaler Of Breath Or Wheezing epinephrine 0.3 mg/0.3 mL 0.3 mg IM UD PRN bee stings 05/22/23 07/04/23 Unknown injection, auto-injector (EpiPen) fluticasone propionate 230 2 puff inhalation AMHS 05/22/23 07/04/23 Unknown mcg-salmeterol 21 mcg/actuation HFA inhaler (Advair HFA) furosemide 80 mg tablet 80 mg PO BID 05/22/23 07/04/23 Unknown omeprazole 20 mg capsule,delayed 20 mg PO DAILYBB 05/22/23 07/04/23 Unknown release cyanocobalamin (vitamin B-12) 500 1,000 mcg (2 x 500 mcg) PO QAM #30 06/10/23 07/04/23 Unknown mcg tablet tabs folic acid 1 mg tablet 1 mg PO QAM #30 tabs 06/10/23 07/04/23 Unknown Active Medications Generic Name Dose Route Start Last Admin Trade Name Richard PRN Reason Stop Dose Admin Budesonide 0.25 mg 07/04/23 19:00 07/09/23 19:26 Budesonide 0.25 Mg/2 Ml Vial (Pulmicort) NEB 08/03/23 18:59 0.25 mg BIDR SAM Administration Folic Acid 1 mg 07/05/23 10:45 07/09/23 07:54 Folic Acid 1 Mg Tab PO 08/04/23 10:44 1 mg QAM SMA Administration Formoterol Fumarate 20 mcg 07/04/23 19:00 07/09/23 19:26 Formoterol 20 Mcg/2 Ml Vial INH 08/03/23 18:59 20 mcg BIDR SAM Administration Propofol 1,000 mg in 100 mls @ 18 mls/hr 07/04/23 11:15 07/10/23 06:08 Diprivan IV 07/10/23 11:14 30 mcg/kg/min .Q5H34M SAM 18 mls/hr Administration Protocol 30 MCG/KG/MIN Pantoprazole Sodium 40 mg/ 10 mls @ 5 mls/min 07/05/23 09:00 07/09/23 20:49 Syringe IV 08/04/23 08:59 5 mls/min BID SAM Administration Fentanyl Citrate 2,500 mcg in 250 mls @ 7.5 mls/hr 07/05/23 10:15 07/09/23 23:27 Fentanyl Citrate IV 07/19/23 10:14 75 mcg/hr .[id number] SAM 7.5 mls/hr Administration Protocol 75 MCG/HR Cefepime HCl 2,000 mg/ Syringe 20 mls @ 5 mls/min 07/07/23 17:00 07/10/23 04:41 IV 07/14/23 16:59 5 mls/min Q12H SAM Administration Protocol Immune Globulin 200 mls @ 51.816 mls/hr 07/09/23 16:00 07/09/23 18:23 Octagam 10% IV 08/08/23 15:59 Infused TODAY@1600 SAM Titration Protocol 1 MG/KG/MIN Immune Globulin 100 mls @ 51.816 mls/hr 07/09/23 15:00 07/09/23 17:32 Octagam 10% IV 08/08/23 14:59 Infused TODAY@1500 SAM Titration Protocol 1 MG/KG/MIN Immune Globulin 50 mls @ 51.816 mls/hr 07/09/23 14:00 07/09/23 17:02 Octagam 10% IV 08/08/23 13:59 Infused TODAY@1400 SAM Titration Protocol 1 MG/KG/MIN Multivitamins/Minerals 15 ml 07/06/23 09:00 07/09/23 07:54 Multi Vit W/Minerals Liquid 15 Ml Udc NG 08/05/23 08:59 15 ml QAM SAM Administration Nutritional Formula 1,000 ml 07/05/23 11:30 07/09/23 19:45 Peptamen Intense Vhp 1.0 Christiano 1,000 Ml Bag OG 08/04/23 11:29 1,000 ml UD SAM Administration Protocol Polyethylene Glycol 17 gm 07/06/23 09:00 07/09/23 07:54 Polyethylene (Miralax) 17 Gm Pack PO 08/05/23 08:59 17 gm DAILY SAM Administration Propofol 20 mg 07/04/23 11:13 07/05/23 00:25 Propofol Bolus From Bag IV 07/10/23 11:12 20 mg Q5M PRN Administration Sedation Sennosides 8.8 mg 07/08/23 11:00 07/09/23 07:54 Sennosides 8.8 Mg/5 Ml Udc PO 08/07/23 10:59 8.8 mg DAILY SAM Administration Sterile Water 30 ml 07/05/23 11:30 07/10/23 03:30 Tube Feeding Water Flush OG 08/04/23 11:29 30 ml Q4H SAM Administration Thiamine HCl 100 mg 07/05/23 10:45 07/09/23 07:54 Thiamine Hcl 100 Mg Tab PO 08/04/23 10:44 100 mg QAM SAM Administration (1) Pneumonia involving right lung Lung location: upper lobe of lung Pneumonia type: due to unspecified organism Qualified Code(s): J18.9 - Pneumonia, unspecified organism
--- NOTE | 2023-07-10 07:50 | XRay Report ---
XR chest 1V portable CLINICAL HISTORY: f/u COMPARISON STUDY: Chest CT July 05, 2023. Chest radiograph July 07, 2023. FINDINGS: Tip of endotracheal tube is 5.2 cm above the melani. Tip of nasogastric tube is below the l ower aspect of this image but at least within the body of the stomach. There is no pneumothorax. Smal l right pleural effusion persists. Cardiomediastinal silhouette is stable. Interstitial thickening is again noted. Bilateral airspace opacities are again noted. Right lung airspace opacity has slightly progressed. IMPRESSION: 1. Satisfactory positioning of the endotracheal and nasogastric tubes. 2. Progression of bilateral airspace opacities, greater within the right lung. The findings favor pne umonia. 3. Cardiomegaly with pulmonary edema, similar to prior exam. ACT 112: Negative or not required by law. Electronically signed by: Chepe Laguna M.D. 07/10/2023 7:49 AM
--- NOTE | 2023-07-10 07:58 | Critical Care Progress Note ---
Date of Service July 10, 2023 Assessment & Plan (1) Acute and chronic respiratory failure: (2) History of tracheostomy: (3) Chronic right-sided heart failure: (4) Tobacco use: (5) COPD (chronic obstructive pulmonary disease): (6) Chronic respiratory failure: (7) Pneumonia: (8) (HFpEF) heart failure with preserved ejection fraction: (9) Anemia: (10) CLL (chronic lymphocytic leukemia): Plan Reason Critically Ill: 57-year-old male past medical history of CML not on any treatment, HFrEF, COPD on oxygen, GERD was brought in intubated for respiratory distress Neuro - [facility] ICU: Negative Propofol and fentanyl for sedation Cardiac - --Right-sided likely pleuritic chest pain Coming from right-sided pneumonia it seems like EKG repeated twice on 07/07/[address]-T wave changes --Elevated troponin --> trending down Likely secondary to type II OK EKG does not show any ST-T wave changes Continue to monitor -- HFpEF BNP 215 at the time of presentation 2D echo 05/24/2023: EF 65 to 70%, grade 1 diastolic dysfunction, RV normal in size and function -- Bilateral upper extremity swelling Doppler negative bilateral upper extremity on 07/07/2023 Respiratory - -- VDRF Multifactorial Likely secondary to COPD exacerbation secondary to entero-/rhinovirus Continue with ventilatory support Keep RASS -1 Respiratory bio fire negative for everything Procalcitonin 0.19 BNP 215 S/p bronch 07/05/2023, no evidence of alveolar hemorrhage Follow-up [facility] culture CT chest 07/05/2023: Dense consolidative process in the right lower lobe Centrilobular and paraseptal emphysema appreciated bilaterally Minimal mediastinal and right hilar lymphadenopathy --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 Source of bleeding is unknown No documented melena, OGT suction is clean. Peripheral smear did not show any signs of schistocytes LDH normal, B12 and folic acid within normal limit. Bilirubin within normal limit, reticulocytes on the higher side this does go with acute blood loss CT abdomen pelvis 07/05/2023 does not show any signs of retroperitoneal bleed GI on board Monitor H&H, transfuse for hemoglobin less than 7 --Thrombocytopenia Continue to monitor ID - -- Multilobar pneumonia Mostly affecting the right side Procalcitonin 0.19 Nasal MRSA negative Continue with broad-spectrum antibiotics Follow sputum culture --Prophylaxis VTE: IPC GI: Pantoprazole twice daily Lines: Peripheral Diet: Tube feeds Plan: In/out: +1.1 L, urine output only 600 mL. Creatinine is still trending up. Today it is 3.9. He is oliguric Getting transfused 1 more unit of blood today. Patient does not fit the criteria for HLH. Ferritin is only 305 and triglycerides of 10 propofol rarely 254. He did have fever when he came to the hospital which was most likely from pneumonia I tried Precedex today while doing the SBT but he was still very restless with respiratory rate increasing to low 30s and heart rate into the 130s. Patient is adamant that he does not want trach. Continue with antibiotics I have personally spent 38 minutes of critical care time in the direct management of this patient. This is a life/limb threatening event. This includes time spent evaluating patient, direct bedside care, chart review, placing orders, interpretation of diagnostic studies, discussion with consultants, patient, and family members, as well as other required patient management activities. This time is exclusive of all separately billable procedures, and teaching time and separate from and in addition to any other critical care service time. Please note the above document was generated using voice recognition software. It may contain grammatical, syntax or spelling errors. Admission and Anticipated Discharge Date Admission Date: July 04, 2023 Subjective Patient seen and examined at bedside. No acute distress. Notable symptoms overnight He was on propofol and fentanyl at the time of examination Is still having secretions. They have decreased in intensity compared to before but still in the large amount He denies any headache, no pleuritic chest pain No abdominal pain No bowel movement in the last 24 hours Review of Systems 2 Review of Systems: All systems reviewed & are unremarkable except as noted in Subjective Physical Exam 2 Physical Exam: Constitutional: No acute distress HEENT: PERRLA, trach scar present Respiratory system: Decreased air entry bilaterally, no wheeze, rhonchi, positive crackles bilaterally CVS: S1-S2 positive, no murmurs or gallops Abdomen: Soft, distended, mild diffuse tenderness, no rebound, positive bowel sounds x4, obese Extremities: +2 pulses bilaterally radialis/ dorsalis pedis, no cyanosis, +1 pitting edema bilateral lower extremity as well as upper extremity. Neuro: RASS -1, answering questions appropriately Psych: Flat mood and affect G/U: Positive Ramon Skin: no rashes, warm and dry Lymphatic: no cervical or axillary lymphadenopathy Results & Data Results & Data Vital Signs (Past 12 Hours) Vital Signs Temp Pulse Resp BP Pulse Ox O2 Del Method FiO2 07/10/23 07:48 37.1 C 90 24 117/56 L 94 07/10/23 07:00 111/52 L 07/10/23 07:00 84 26 H 95 07/10/23 06:00 86 26 H 93 Mechanical Vent 40 07/10/23 06:00 104/51 L 07/10/23 05:00 113/53 L 07/10/23 05:00 92 H 23 93 Mechanical Vent 40 07/10/23 04:00 105/50 L 07/10/23 04:00 85 26 H 94 Mechanical Vent 40 07/10/23 04:00 36.8 C 07/10/23 04:00 40 07/10/23 03:00 97/51 L 07/10/23 03:00 88 26 H 93 07/10/23 02:34 91 H 26 H 92 40 07/10/23 02:00 101/49 L 40 07/10/23 02:00 89 26 H 92 Mechanical Vent 07/10/23 01:00 98 H 29 H 94 07/10/23 01:00 123/59 L 07/10/23 00:00 113/54 L 07/10/23 00:00 94 H 27 H 92 07/10/23 00:00 36.9 C Mechanical Vent 40 07/10/23 00:00 40 07/10/23 00:00 90 07/09/23 23:23 97 H 27 H 93 40 07/09/23 23:00 93 H 27 H 92 07/09/23 23:00 108/52 L 07/09/23 22:00 104/49 L 07/09/23 22:00 95 H 27 H 91 07/09/23 21:00 114/49 L 07/09/23 21:00 95 H 26 H 94 07/09/23 20:00 94 H 26 H 92 07/09/23 20:00 92 H 26 H 110/55 L 94 07/09/23 20:00 Mechanical Vent 07/09/23 20:00 40 07/09/23 20:00 37.6 C H Laboratory Results 07/10/23 04:17 07/10/23 04:17 Coding Level of Care Code 22514 CRITICAL CARE 1ST 30-74M Diagnoses Acute and chronic respiratory failure J96.20 History of tracheostomy Z98.890 Chronic right-sided heart failure I50.812 Tobacco use Z72.0 COPD (chronic obstructive pulmonary disease) J44.9 Chronic respiratory failure J96.10 Pneumonia J18.9 Laterality: right Lung location: unspecified part of lung Pneumonia type: due to unspecified organism (HFpEF) heart failure with preserved ejection fraction I50.30 Anemia due to other cause, not classified D64.89 Anemia type: other cause Other causes of anemia: other cause, not classified CLL (chronic lymphocytic leukemia) C91.10 (7) Pneumonia Laterality: right Lung location: unspecified part of lung Pneumonia type: d ue to unspecified organism Qualified Code(s): J18.9 - Pneumonia, unspecified organism (9) Anemia Anemia type: other cause Other causes of anemia: other cause, not classified Qualified Code(s): D64.89 - Other specified anemias
[2023-07-10] MEDS ORDERED: STAT IV Infusion **Titration per Protocol STA ×2 (09:27→12:55)
[2023-07-10 09:32] LABS: Fibrinogen > 860 mg/dl (184-400)
[2023-07-10] MEDS: dexMEDEtomidine 200 MCG/50 ML BAG IV SCH (10:01)
--- NOTE | 2023-07-10 11:20 | Nephrology Progress Note ---
Date of Service July 10, 2023 Assessment & Plan (1) BEN (acute kidney injury): Plan: Came in with near normal Creat of 1.3 But still uptrending to 3.9 today Making urine about 0.5 L yesterday. Electrolytes are stable and no indication for dialysis. On admission had elevated Lactic acid and Low BP with sepsis and resp failure from pneumonia and also got iv contrast---combination causing ATN with non oliguric BEN. needs supportive care--Good BP, o2 status. Good hgb- Avoid nephrotoxic agents. renal US and CT---reviewed--no Hydronephrosis. CXR from 07/07 is showing some Pulm edema also. ATN has not peaked yet--follow renal panel. No dialysis needed but not out of danger yet as he is still very sick overall. -Okay to use Lasix if needed to aid extubation (2) Acute and chronic respiratory failure: Plan: from Pneumonia. 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 Patient is making urine. He remains intubated and unable to give history. Creatinine still uptrending. Review of Systems 2 Review of Systems: Unable to obtain due to intubation Physical Exam 2 Physical Exam: General exam: Intubated but opens eyes to voice HEENT: Pupils are equal and reactive to light Respiratory system: Clear breath sounds bilaterally. Gastrointestinal: Abdomen is soft, non distended, non tender, bowel sounds are present CVS: Regular rate and rhythm. No murmurs, rubs or gallops Musculoskeletal: No joint or muscle tenderness Extremities: Non tender, no edema, peripheral pulses are present Neuro: Opens eyes to voice no tremors, no focal neurological deficits Skin: No rashes Results & Data Vital Signs (Past 12 Hours) Vital Signs Temp Pulse Resp BP Pulse Ox O2 Del Method O2 Flow Rate 07/10/23 11:00 36.9 C 120 H 25 H 122/70 99 07/10/23 10:00 37.3 C 104 H 24 117/63 90 15 07/10/23 09:00 37.0 C 106 H 24 151/69 H 90 15 07/10/23 08:57 37.0 C 106 H 24 151/69 H 90 07/10/23 08:30 37.3 C 98 H 137/77 94 07/10/23 08:15 37.5 C 97 H 25 H 126/58 L 94 07/10/23 08:00 07/10/23 07:48 37.1 C 90 24 117/56 L 94 07/10/23 07:00 111/52 L 07/10/23 07:00 84 26 H 95 07/10/23 06:00 86 26 H 93 Mechanical Vent 07/10/23 06:00 104/51 L 07/10/23 05:00 113/53 L 07/10/23 05:00 92 H 23 93 Mechanical Vent 07/10/23 04:00 105/50 L 07/10/23 04:00 85 26 H 94 Mechanical Vent 07/10/23 04:00 36.8 C 07/10/23 04:00 07/10/23 03:00 97/51 L 07/10/23 03:00 88 26 H 93 07/10/23 02:34 91 H 26 H 92 07/10/23 02:00 101/49 L 07/10/23 02:00 89 26 H 92 Mechanical Vent 07/10/23 01:00 98 H 29 H 94 07/10/23 01:00 123/59 L 07/10/23 00:00 113/54 L 07/10/23 00:00 94 H 27 H 92 07/10/23 00:00 36.9 C Mechanical Vent 07/10/23 00:00 07/10/23 00:00 90 07/09/23 23:23 97 H 27 H 93 FiO2 07/10/23 11:00 07/10/23 10:00 07/10/23 09:00 07/10/23 08:57 07/10/23 08:30 07/10/23 08:15 07/10/23 08:00 40 07/10/23 07:48 07/10/23 07:00 07/10/23 07:00 07/10/23 06:00 40 07/10/23 06:00 07/10/23 05:00 07/10/23 05:00 40 07/10/23 04:00 07/10/23 04:00 40 07/10/23 04:00 07/10/23 04:00 40 07/10/23 03:00 07/10/23 03:00 07/10/23 02:34 40 07/10/23 02:00 40 07/10/23 02:00 07/10/23 01:00 07/10/23 01:00 07/10/23 00:00 07/10/23 00:00 07/10/23 00:00 40 07/10/23 00:00 40 07/10/23 00:00 07/09/23 23:23 40 Laboratory Results 07/10/23 04:17 07/10/23 04:17 WBC 15.44 H RBC 2.20 L MCV 96.8 MCH 29.5 MCHC 30.5 L RDW Std Deviation MEDICAID PLAN COMPLIANCE DIRECTOR RDW Coeff of Argenis MEDICAID PLAN COMPLIANCE DIRECTOR Plt Count 33 L MPV MEDICAID PLAN COMPLIANCE DIRECTOR Phosphorus 5.6 H
[2023-07-10] MEDS ORDERED: NOVASOURCE RENAL 2.0 CAL 1000ML BAG OG SCH (12:00)
[2023-07-10] MEDS: propofoL 1,000 MG/100 ML VIAL IV SCH (13:00)
[2023-07-10] MEDS: PROPOFOL BOLUS FROM BAG IV PRN (13:00)
[2023-07-10] MEDS: fentaNYL BOLUS from BAG IV PRN (13:35)
[2023-07-10] MEDS: CEFEPIME 1,000 MG in SYRINGE 0 ML IV SCH (17:31)
[2023-07-10 21:07] LABS: Source BALRML
[2023-07-11 04:43] LABS: Hematocrit (blood only) 23.4 % (42.0-52.0); Hemoglobin 7.2 g/dl (14.0-18.0); Mean Corpuscular Hemoglobin 29.5 pg (25.0-34.0); Mean Corpuscular Hgb Conc 30.8 g/dL (32.0-36.0); Mean Corpuscular Volume 95.9 fL (80.0-100.0); Mean Platelet Volume 13.3 fL (9.4-12.4); Nucleated RBC # (auto) 0.02 K/uL (0.00-0.12); Nucleated RBC % (auto) 0.1 %; Platelet Count 36 K/uL (130-400); RDW Coefficient of Variation 19.8 % (11.5-14.5); RDW Standard Deviation 67.8 fL (36.4-46.3); Red Blood Count 2.44 M/uL (4.70-6.10); White Blood Count 16.73 K/ul (4.8-10.8)
[2023-07-11 05:27] LABS: Calcium 8.6 mg/dl (8.6-10.3); Est GFR (Non-African American) 11.2 ml/min; Phosphorus 6.3 mg/dl (2.5-4.9); Potassium 4.6 mmol/L (3.5-5.1)
--- NOTE | 2023-07-11 09:21 | Critical Care Progress Note ---
Date of Service July 11, 2023 Assessment & Plan (1) Acute and chronic respiratory failure: (2) History of tracheostomy: (3) Chronic right-sided heart failure: (4) Tobacco use: (5) COPD (chronic obstructive pulmonary disease): (6) Chronic respiratory failure: (7) Pneumonia: (8) (HFpEF) heart failure with preserved ejection fraction: (9) Anemia: (10) CLL (chronic lymphocytic leukemia): Plan Reason Critically Ill: 57-year-old male past medical history of CML not on any treatment, HFrEF, COPD on oxygen, GERD was brought in intubated for respiratory distress Neuro - [facility]: Negative Propofol and fentanyl for sedation Cardiac - --Right-sided likely pleuritic chest pain Coming from right-sided pneumonia it seems like EKG repeated twice on 07/07/[address]-T wave changes --Elevated troponin --> trending down Likely secondary to type II ME EKG does not show any ST-T wave changes -- HFpEF BNP 215 at the time of presentation 2D echo 05/24/2023: EF 65 to 70%, grade 1 diastolic dysfunction, RV normal in size and function -- Bilateral upper extremity swelling Doppler negative bilateral upper extremity on 07/07/2023 Respiratory - -- VDRF Multifactorial Likely secondary to COPD exacerbation secondary to entero-/rhinovirus Continue with ventilatory support Keep RASS -1 Respiratory bio fire negative for everything Procalcitonin 0.19 BNP 215 S/p bronch 07/05/2023, no evidence of alveolar hemorrhage Follow-up bronc culture CT chest 07/05/2023: Dense consolidative process in the right lower lobe Centrilobular and paraseptal emphysema appreciated bilaterally Minimal mediastinal and right hilar lymphadenopathy --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 Source of bleeding is unknown No documented melena, OGT suction is clean. Peripheral smear did not show any signs of schistocytes LDH normal, B12 and folic acid within normal limit. Bilirubin within normal limit, reticulocytes on the higher side this does go with acute blood loss -Concerned for sequestration given splenomegaly and no obvious source of bleeding CT abdomen pelvis 07/05/2023 does not show any signs of retroperitoneal bleed GI on board Monitor H&H, transfuse for hemoglobin less than 7 --Thrombocytopenia Continue to monitor ID - -- Multilobar pneumonia Mostly affecting the right side Procalcitonin 0.19 Nasal MRSA negative Continue with broad-spectrum antibiotics Follow sputum culture Day 11/29 cefepime --Prophylaxis VTE: IPC GI: Pantoprazole twice daily Lines: Peripheral Diet: Tube feeds Disposition: ICU Had extensive discussion with the patient's daughter and ex- who is providing support. Patient is at extremely high risk for need for reintubation. All in agreement the patient does not want tracheostomy however they report he is not ready to consider palliative care options and wants to be reintubated if he failed. They understand this is an incongruency and the patient's daughter reports that she would believe the patient would want to undergo a tracheostomy. Given his repeated failures and now acute kidney injury the patient has very limited reserve to compensate from a metabolic or respiratory acidosis. We discussed the safest approach may be to undergo repeat percutaneous dilatation tracheostomy versus trial of extubation. Given multiple interrelated issues including a symptomatic anemia I feel it is safer to have the patient undergo dialysis and we will readdress possible extubation versus proceeding with tracheostomy tomorrow. Daughter is keenly aware that with the underlying CLL patient is at increased risk for bleeding which did occur with his prior tracheostomy. Admission and Anticipated Discharge Date Admission Date: July 04, 2023 Supervising Physician Co-Signing Physician Notes I have personally spent 70 minutes of critical care time in the direct management of this patient. This is a life/limb threatening event. This includes time spent evaluating patient, direct bedside care, chart review, placing orders, interpretation of diagnostic studies, discussion with consultants, patient, and/or family members regarding treatment decisions, as well as other required patient management activities. This time is exclusive of all separately billable procedures, and teaching time and separate from and in addition to any other critical care service time. Subjective No overnight events. Nephrology evaluated strongly considering dialysis. Will necessitate a family discussion regarding goals of care. Review of Systems Review of Systems: Unobtainable due to endotracheal tube Physical Exam Physical Exam: General: Sedated. nontoxic. Skin: Warm, dry, Head: Atraumatic Ears, nose, mouth and throat: airway obscured by endotracheal tube Cardiovascular: Normal peripheral perfusion Respiratory: Ventilator settings reviewed Gastrointestinal: Non distended Musculoskeletal: No deformity Results & Data Results & Data Vital Signs (Past 12 Hours) Vital Signs Temp Pulse Resp BP Pulse Ox O2 Del Method FiO2 07/11/23 09:00 86 26 H 92 Mechanical Vent 07/11/23 09:00 101/50 L 07/11/23 08:30 101/50 L 07/11/23 08:30 87 26 H 93 Mechanical Vent 07/11/23 08:14 90 26 H 93 40 07/11/23 08:00 107/53 L 07/11/23 08:00 90 26 H 93 Mechanical Vent 07/11/23 07:30 87 26 H 93 Mechanical Vent 07/11/23 07:30 99/49 L 07/11/23 07:15 108/51 L 07/11/23 07:15 91 H 26 H 93 Mechanical Vent 07/11/23 07:00 105/55 L 07/11/23 07:00 92 H 26 H 93 Mechanical Vent 07/11/23 06:08 36.7 C 89 26 H 103/53 L 92 Mechanical Vent 07/11/23 05:45 88 26 H 92 07/11/23 05:00 87 26 H 96/50 L 91 07/11/23 04:39 90 27 H 94 40 07/11/23 04:00 97 H 27 H 120/64 93 07/11/23 04:00 40 07/11/23 03:00 37.2 C 111/61 07/11/23 03:00 36.7 C 94 H 26 H 136/84 93 07/11/23 02:00 36.9 C 94 H 26 H 116/54 L 92 07/11/23 01:00 37 C 99 H 26 H 112/55 L 93 07/11/23 00:00 37.2 C 102 H 28 H 130/63 93 07/11/23 00:00 100 H 07/11/23 00:00 40 07/10/23 23:00 37.1 C 97 H 26 H 121/57 L 92 07/10/23 22:55 97 H 27 H 94 40 07/10/23 22:01 37.2 C 98 H 26 H 111/56 L 93 07/10/23 22:00 Mechanical Vent 40 Critical Care Results & Data Vital Signs (Past 12 Hours) Vital Signs Temp Pulse Resp BP Pulse Ox O2 Del Method FiO2 07/11/23 09:00 86 26 H 92 Mechanical Vent 07/11/23 09:00 101/50 L 07/11/23 08:30 101/50 L 07/11/23 08:30 87 26 H 93 Mechanical Vent 07/11/23 08:14 90 26 H 93 40 07/11/23 08:00 107/53 L 07/11/23 08:00 90 26 H 93 Mechanical Vent 07/11/23 07:30 87 26 H 93 Mechanical Vent 07/11/23 07:30 99/49 L 07/11/23 07:15 108/51 L 07/11/23 07:15 91 H 26 H 93 Mechanical Vent 07/11/23 07:00 105/55 L 07/11/23 07:00 92 H 26 H 93 Mechanical Vent 07/11/23 06:08 36.7 C 89 26 H 103/53 L 92 Mechanical Vent 07/11/23 05:45 88 26 H 92 07/11/23 05:00 87 26 H 96/50 L 91 07/11/23 04:39 90 27 H 94 40 07/11/23 04:00 97 H 27 H 120/64 93 07/11/23 04:00 40 07/11/23 03:00 37.2 C 111/61 07/11/23 03:00 36.7 C 94 H 26 H 136/84 93 07/11/23 02:00 36.9 C 94 H 26 H 116/54 L 92 07/11/23 01:00 37 C 99 H 26 H 112/55 L 93 07/11/23 00:00 37.2 C 102 H 28 H 130/63 93 07/11/23 00:00 100 H 07/11/23 00:00 40 07/10/23 23:00 37.1 C 97 H 26 H 121/57 L 92 07/10/23 22:55 97 H 27 H 94 40 07/10/23 22:01 37.2 C 98 H 26 H 111/56 L 93 07/10/23 22:00 Mechanical Vent 40 Lab & Micro Results (Past 24 Hours) RBC 2.44 M/uL (4.70-6.10) L 07/11/23 WBC 16.73 K/ul (4.8-10.8) H 07/11/23 Hgb 7.2 g/dl (14.0-18.0) L 07/11/23 Hct 23.4 % (42.0-52.0) L 07/11/23 MCV 95.9 fL (80.0-100.0) 07/11/23 MCH 29.5 pg (25.0-34.0) 07/11/23 MCHC 30.8 g/dL (32.0-36.0) L 07/11/23 RDW Standard Deviation 67.8 fL (36.4-46.3) H 07/11/23 RDW Coefficient of Variation 19.8 % (11.5-14.5) H 07/11/23 Plt Count 36 K/uL (130-400) L 07/11/23 MPV 13.3 fL (9.4-12.4) H 07/11/23 Nucleated Red Blood Cells % (auto) 0.1 % 07/11 Nucleated RBC Absolute Count (auto) 0.02 K/uL (0.00-0.12) 0 07/11/23 Na 137 mmol/L (136-145) 07/11/23 K 4.6 mmol/L (3.5-5.1) 07/11/23 Cl 103 mmol/L (98-107) 07/11/23 CO2 19 mmol/L (21-32) L 07/11/23 Anion Gap 15 (3-11) H 07/11/23 BUN 104 mg/dl (6-23) H 07/11/23 Creatinine 5.19 mg/dl (0.6-1.4) H* 07/11/23 Estimated GFR ( Amer) 13.0 ml/min 07/11/23 Estimated GFR (Non-Af Amer) 11.2 ml/min 07/11/23 BUN/Creatinine Ratio 20.0 (10-20) 07/11/23 Glu 112 mg/dl (70-99(Fasting)) H 07/11/23 Ca 8.6 mg/dl (8.6-10.3) 07/11/23 Phosphorus Level 6.3 mg/dl (2.5-4.9) H 07/11/23 Mg 3.0 mg/dl (1.7-2.4) H 07/11/23 03:57 Calcium Level 8.6 mg/dl (8.6-10.3) 07/11/23 03:57 Microbiology 07/05/23 Unknown Fungal Smear - Final Ba Lavage,Right Middle Lobe Fungal Culture - Preliminary No yeast or fungus isolated - Report 1, Additional Report to Follow. I & O Totals 24 Hours 07/10/23 07/11/23 07/12/23 06:59 06:59 06:59 Intake Total 1626.717 / 4297.326 1897.662 / 4203.662 87.795 / 87.795 Output Total 600 / 600 346 / 346 Balance 1026.717 / 0283.591 3307.662 / 3857.662 69.795 / 69.795 Cumulative 07/04/23 10:51 thru 07/11/23 09:03 Intake Total 22188.008 Output Total 5890 Balance 06821.008 RT Ventilator Mngmt (Last Documented) Ventilator Ordered Settings Ventilator Support Mode Assist Control 07/11/23 08:14 Respiratory Rate 26 07/11/23 09:00 Ventilator Tidal Volume 470 07/11/23 08:14 Setting Minute Ventilation 12.2 07/11/23 08:14 Ventilator Positive Pressure 12 07/10/23 12:00 Support Setting Positive End Expiratory 8 07/11/23 08:14 Pressure Fraction of Inspired Oxygen 40 07/11/23 08:14 Peak Inspiratory Flow 47 07/09/23 15:01 Machine Comment Pt placed on SBT 07/10/23 11:25 Ventilator - PT Measurements Respiratory Rate 26 Exhaled Tidal Volume 476 Minute Ventilation 12.2 Peak Inspiratory Airway 38 Pressure Plateau Pressure 29.6 Respiratory Cycle Inspiratory: 1:2.3 Expiratory Ratio Inspiratory Phase Time 0.7 End-Tidal CO2 36 Static Lung Compliance 22.04 Dynamic Lung Compliance 15.87 Normal Static Lung Compliance 44.00 Patient Measurements Comment Patient comfortably resting on pressure support at this time, RN aware. Coding Level of Care Code 53693 CRITICAL CARE 1ST 30-74M Diagnoses Acute and chronic respiratory failure J96.20 History of tracheostomy Z98.890 Chronic right-sided heart failure I50.812 Tobacco use Z72.0 COPD (chronic obstructive pulmonary disease) J44.9 Chronic respiratory failure J96.10 Pneumonia J18.9 Laterality: right Lung location: unspecified part of lung Pneumonia type: due to unspecified organism (HFpEF) heart failure with preserved ejection fraction I50.30 Anemia due to other cause, not classified D64.89 Anemia type: other cause Other causes of anemia: other cause, not classified CLL (chronic lymphocytic leukemia) C91.10 (7) Pneumonia Laterality: right Lung location: unspecified part of lung Pneumonia type: due to unspecified organism Qualified Code(s): J18.9 - Pneumonia, unspecified organism (9) Anemia Anemia type: other cause Other causes of anemia: other cause, not classified Qualified Code(s): D64.89 - Other specified anemias
--- NOTE | 2023-07-11 11:52 | Nephrology Progress Note ---
Date of Service July 11, 2023 Assessment & Plan (1) BEN (acute kidney injury): Plan: Came in with near normal Creat of 1.3 But dramatically uptrending to 5.2 today w/ borderline UOP and worsening volume status. Ongoing now Stage 3 oliguric BEN from ATN +/- w/ role from IVIG. Made under 0.4 L yesterday, w/ about 150 mL onvernight. Electrolytes are stable but given oliguria, worsening volume status need to consider IT OPERATIONS SPECIALIST. On admission had elevated Lactic acid and Low BP with sepsis and resp failure from pneumonia and also got iv contrast---combination causing ATN. needs supportive care--Good BP, o2 status. Good hgb. Avoid nephrotoxic agents. renal US and CT---reviewed--no Hydronephrosis. CXR from 07/10 is showing some Pulm edema also. ATN has not peaked yet--important at least to discuss dialysis here. See below re goals of care. Plan will be for trach and temp line today; start IT OPERATIONS SPECIALIST; plan daily for 3 days gentle start then reassess. 2 hrs today; no heparin in tx.; defer to primary service if pRBC on tx or not; profound thrombocytopenia noted. (2) Acute and chronic respiratory failure: Plan: from Pneumonia. 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 when I brought up DNR/DNI, Sonal stated " that's the first I've heard of it. I want that off of there. If he needs help, the docs need to help him. If he's SOB or needs compressions or whatever, I want that to be done." Told her that he's very ill, that now w/ worsening renal failure it's a bad turn for him clinically w/ another organ system down. She still wants him to have dialysis if need arises. Advised her daylight team/ICU team will want to discuss more b/c this is a change in status (and later in AM this discussion did occur); reminded her this is about her dad's wishes, not hers. Affirms wants him full code and IT OPERATIONS SPECIALIST if needed. Updated RN. Risks/benefits/alternatives to IT OPERATIONS SPECIALIST reviewed w/ Sonal; consent obtained/on chart. Low threshold for ongoing discussion of goals of care. reviewed with Dr Easley on code hx as well. Care coordinated with ICU team. I spent a total of 70 minutes coordinating, documenting, and providing care for this patient excluding time spent in the performance of separately billed services. This included personally reviewing all current laboratories and imaging studies, medication reconciliation, outpatient chart review, and discussion with other physicians, with nursing, and as applicable with the patient and family. Admission and Anticipated Discharge Date Admission Date: July 04, 2023 Subjective seen and evaluated just before 7 AM today; pt remains intubated, lightly sedated. 11.8L positive on the admission, including 3.9L past 24 hrs. 156 mL UOP ON; creatinine worsening. Pt is intubated but also DNR/DNI; reached out to harshadwing LETICIA this am and had 20 min conversation with her about dad's worsening renal status. Review of Systems 2 Review of Systems: Unobtainable due to endotracheal tube Physical Exam 2 Constitutional: well developed, well nourished and + mechanically ventilated; no acute distress ENMT: Ears: no external ear abnormality Nose: no external nose abnormality Mouth: + dry oral mucous membranes Neck: no nuchal rigidity Respiratory: normal respiratory effort (on vent) Auscultation: + diminished lung sounds Cardiovascular: RRR, no murmur, no edema Gastrointestinal (Abdomen): Inspection/Auscultation: + abdomen distended and normal bowel sounds Percussion/Palpation: + abdomen tender (?to moderate palpation diffusely) and abdomen soft Musculoskeletal: Extremities: + abnormal strength (on vent/sedated) Skin: no rashes, warm and dry Neurologic: intubated; eyes open not tracking; not following commands, no tremor Results & Data Vital Signs (Past 12 Hours) Vital Signs Temp Pulse Resp BP Pulse Ox O2 Del Method FiO2 07/11/23 11:42 84 27 H 92 40 07/11/23 09:00 86 26 H 92 Mechanical Vent 07/11/23 09:00 101/50 L 07/11/23 08:30 101/50 L 07/11/23 08:30 87 26 H 93 Mechanical Vent 07/11/23 08:14 90 26 H 93 40 07/11/23 08:00 40 07/11/23 08:00 92 H 07/11/23 08:00 107/53 L 07/11/23 08:00 90 26 H 93 Mechanical Vent 07/11/23 07:30 87 26 H 93 Mechanical Vent 07/11/23 07:30 99/49 L 07/11/23 07:15 108/51 L 07/11/23 07:15 91 H 26 H 93 Mechanical Vent 07/11/23 07:00 105/55 L 07/11/23 07:00 92 H 26 H 93 Mechanical Vent 07/11/23 06:08 36.7 C 89 26 H 103/53 L 92 Mechanical Vent 07/11/23 05:45 88 26 H 92 07/11/23 05:00 87 26 H 96/50 L 91 07/11/23 04:39 90 27 H 94 40 07/11/23 04:00 97 H 27 H 120/64 93 07/11/23 04:00 40 07/11/23 03:00 37.2 C 111/61 07/11/23 03:00 36.7 C 94 H 26 H 136/84 93 07/11/23 02:00 36.9 C 94 H 26 H 116/54 L 92 07/11/23 01:00 37 C 99 H 26 H 112/55 L 93 07/11/23 00:00 37.2 C 102 H 28 H 130/63 93 07/11/23 00:00 100 H 07/11/23 00:00 40 Laboratory Results 07/11/23 03:57 07/11/23 03:57 Diagnostic Findings CXR from yesterday personally reviewed; mild vol OL
--- NOTE | 2023-07-11 12:56 | Hospitalist Progress Note ---
Date of Service July 11, 2023 Assessment & Plan (1) Pneumonia involving right lung: Plan Mr. Valiente is a 58-year-old male with PMH of chronic lymphocytic leukemia not on any medication now, COPD, chronic diastolic heart failure, chronic hypoxic respiratory failure, hypertension, selective deficiency of immunoglobulin and, dyslipidemia, thrombocytopenia presented to the ED with acute short of breath since the morning of arrival and needed intubation due to desaturation and shortness of breath with unresponsiveness at ED. He remains intubated at this time and declines any pursuit of trach at this time. Course complicated by fever, BEN, and lack of bowel movement. Fevers resolved-24 hours afebrile over 07/07-. TMAX 37.6 07/09. BEN likely ATN per nephrology, suspect renal function has yet to plateau and will continue to uptrend. Now passing stool, softer abdomen. HGB dropping; review of prior hematology consult revealed that losses likely 2/2 ongoing CLL and sepsis. B12/folate this admission wnl. Patient has recent admission in 05/2023 of respiratory failure ultimately requiring tracheostomy. Currently, SBT ongoing for "diaphragm" exercise rather than plan extubation. Given copious secretions and slow progress from a respiratory standpoint, extubation has been delayed to prevent reintubation. Heme consulted given similar presentation to recent administration. Now s/p 6 U PRBC; Heme feels 2/2 sepsis at this time. No signs of bleeding via GI losses. Worsening renal dysfunction 2/2 ATN--Cr continues to rise, raising concerns for dialysis Remains intubated. Conversation held between records management director and family regarding code status, ongoing measures. Will appreciate those recommendations. Family not at bedside during evaluation. Patient with worsening organ failure--respiratory and now renal. #BEN, likely 2/2 ATN likely prerenal iso sepsis hypotension, as well as contrast load Cr. up to 1.69, baseline 0.9-1.2 Avoid nephrotoxic, maintain maps >65 Monitor UOP -UOP decreased, also note patient on chronic diuretics at home 80mg BID -Trend BMP, will likely increase; avoid aggressive hydration -Uric acid 7.5 (potassium normal, calcium stable/low, phos mild elevation) Renal ultrasound reviewed, kidneys normal, no hydro noted =Planning for HIGHWAY DESIGN ENGINEER today via temp line, nephrology noted reviewed: plan for daily 3 days, then reassess #Acute on chronic respiratory failure with hypercapnia/hypoxia requiring mechanical ventilation #Multilobar pneumonia #Severe sepsis POA: Likely secondary to above. Leukocytosis (iso CLL) and tachycardia at presentation. Lactate elevated. Patient presented with acute shortness of breath, needed intubation in the ED due to unresponsiveness and acute desaturation. Admitting CXR with multifocal airspace opacities, admitting ABG with hypercapnia and hypoxia. CT Chest on 07/05 with dense right > left consolidation, progressed since 05/22 Bronchoscopy on 07/05 with clear secretions MRSA is negative. Respiratory viral panel negative: vancomycin discontinued Patient intubated on 07/04, remains intubated at this time Patient is being managed in the ICU. NGTD on 07/05 bronch cultures; NGTD blood cultures, UA Continue Cefepime Trend daily CBC/BMP: ordered Vent/SBT per ICU -Trach discussion--likely will undergo placement today 07/11 per discussion with ICU given family requests and patient not decisional at this time #Fevers *resolved Potentially multifactorial Follow infectious work up, reduced medications that may contribute Consider CLL as etiology Follow fever curve and clinical status #Sinus Tachycardia *resolved iso critical illness Monitor on telemetry #Constipation/Obstipation*improving -Bowel regimen in place #Acute normocytic anemia #Chronic anemia of chronic disease No documented melena, bronchoscopy without alveolar hemorrhage, plan for CT abdomen pelvis. Status post 6 units Transfuse to maintain hemoglobin above 7. 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 White cell count in 40s to 50s. Peripheral smear with no evidence of transformation to acute leukemia. Follow-up with oncology upon discharge CBC ordered in am Down trending in all cell lines IgG 552/4 07/08, recommended previously by heme to infuse Igg 400mg/kg if less t johnson <500 Heme consulted: NTD, likely sepsis -400mg/kg ordered IVIG 07/09 #Thrombocytopenia *stable holding fast in 30s at this time #COPD Emphysema on imaging Resume budesonide and formoterol when able SBT per ICU; plan for trach as above #Chronic right-sided heart failure May 2023 echo with EF of 65 to 70%, grade 1 diastolic dysfunction. BNP elevated at 215. Chest x-ray consistent with mild congestion. Home regimen: Lasix 80mg BID Monitor for volume overload -Signs of ?edema on CXR -Discussed diuretics with ICU: plan for holding in interim while ATN resolves -HIGHWAY DESIGN ENGINEER for volume management #HTN Now relatively hypotensive 2/2 sepsis. #GERD Continue home PPI OGT, TF per ICU Analgesia: Fentanyl, analgesia holidays per ICU Sedation: Propofol, sedation holidays per ICU DVT SCDS 2/2 thrombocytopenia/anemia HOB 30 Ulcer: PPI IV hyperglycemia protocol per ICU Bowel regimen prn Indwelling cath Abx: Cefepime SBT per ICU Admission and Anticipated Discharge Date Admission Date: July 04, 2023 Subjective sedated this morning NAEO Family discussion with ICU regarding possible trach placement v cm Physical Exam Constitutional: sedated Respiratory: remains intubated, mechanical breath sounds, occasional crackles Cardiovascular: RRR, no murmur, no edema Gastrointestinal (Abdomen): distended abdomen, firmer than prior examinations Results & Data Results & Data Vital Signs (Past 12 Hours) Vital Signs Temp Pulse Resp BP Pulse Ox O2 Del Method FiO2 07/11/23 12:00 98/45 L 07/11/23 12:00 86 26 H 92 07/11/23 12:00 40 07/11/23 11:42 84 27 H 92 40 07/11/23 11:30 95/48 L 07/11/23 11:30 85 26 H 92 07/11/23 11:00 109/57 L 07/11/23 11:00 93 H 26 H 91 07/11/23 10:38 130/62 07/11/23 10:38 99 H 29 H 95 07/11/23 10:30 102/48 L 07/11/23 10:30 86 27 H 93 07/11/23 10:00 85 26 H 93 07/11/23 10:00 100/49 L 07/11/23 09:30 95/48 L 07/11/23 09:30 85 27 H 93 07/11/23 09:00 86 26 H 92 Mechanical Vent 07/11/23 09:00 101/50 L 07/11/23 08:30 101/50 L 07/11/23 08:30 87 26 H 93 Mechanical Vent 07/11/23 08:14 90 26 H 93 40 07/11/23 08:00 Mechanical Vent 40 07/11/23 08:00 40 07/11/23 08:00 92 H 07/11/23 08:00 107/53 L 07/11/23 08:00 90 26 H 93 Mechanical Vent 07/11/23 07:30 87 26 H 93 Mechanical Vent 07/11/23 07:30 99/49 L 07/11/23 07:15 108/51 L 07/11/23 07:15 91 H 26 H 93 Mechanical Vent 07/11/23 07:00 105/55 L 07/11/23 07:00 92 H 26 H 93 Mechanical Vent 07/11/23 06:08 36.7 C 89 26 H 103/53 L 92 Mechanical Vent 07/11/23 05:45 88 26 H 92 07/11/23 05:00 87 26 H 96/50 L 91 07/11/23 04:39 90 27 H 94 40 07/11/23 04:00 97 H 27 H 120/64 93 07/11/23 04:00 40 07/11/23 03:00 37.2 C 111/61 07/11/23 03:00 36.7 C 94 H 26 H 136/84 93 07/11/23 02:00 36.9 C 94 H 26 H 116/54 L 92 07/11/23 01:00 37 C 99 H 26 H 112/55 L 93 Laboratory Results Short CBC 07/11/23 Range/Units 03:57 WBC 16.73 H (4.8-10.8) K/ul Hgb 7.2 L (14.0-18.0) g/dl Hct 23.4 L (42.0-52.0) % Plt Count 36 L (130-400) K/uL BMP 07/11/23 03:57 Sodium 137 Potassium 4.6 Chloride 103 Carbon Dioxide 19 L BUN 104 H D Creatinine 5.19 H* D Glucose 112 H Calcium 8.6 Medications Administered Home Medications Medication Instructions Recorded Confirmed Last Taken tiotropium bromide 18 mcg capsule 18 mcg inhalation DAILY 06/25/22 07/04/23 Unknown with inhalation device (Spiriva with HandiHaler) albuterol sulfate 90 mcg/actuation 2 puff inhalation Q4 PRN Shortness 05/22/23 07/04/23 Unknown aerosol inhaler Of Breath Or Wheezing epinephrine 0.3 mg/0.3 mL 0.3 mg IM UD PRN bee stings 05/22/23 07/04/23 Unknown injection, auto-injector (EpiPen) fluticasone propionate 230 2 puff inhalation AMHS 05/22/23 07/04/23 Unknown mcg-salmeterol 21 mcg/actuation HFA inhaler (Advair HFA) furosemide 80 mg tablet 80 mg PO BID 05/22/23 07/04/23 Unknown omeprazole 20 mg capsule,delayed 20 mg PO DAILYBB 05/22/23 07/04/23 Unknown release cyanocobalamin (vitamin B-12) 500 1,000 mcg (2 x 500 mcg) PO QAM #30 06/10/23 07/04/23 Unknown mcg tablet tabs folic acid 1 mg tablet 1 mg PO QAM #30 tabs 06/10/23 07/04/23 Unknown Active Medications Generic Name Dose Route Start Last Admin Trade Name Freq PRN Reason Stop Dose Admin Budesonide 0.25 mg 07/04/23 19:00 07/11/23 08:14 Budesonide 0.25 Mg/2 Ml Vial (Pulmicort) NEB 08/03/23 18:59 0.25 mg BIDR SAM Administration Fentanyl Citrate 50 mcg 07/05/23 10:15 07/10/23 13:35 Fentanyl Bolus From Bag IV 07/19/23 10:14 50 mcg Q60M PRN Administration Pain or Agitation Folic Acid 1 mg 07/05/23 10:45 07/11/23 07:37 Folic Acid 1 Mg Tab PO 08/04/23 10:44 1 mg QAM SAM Administration Formoterol Fumarate 20 mcg 07/04/23 19:00 07/11/23 08:14 Formoterol 20 Mcg/2 Ml Vial INH 08/03/23 18:59 20 mcg BIDR SAM Administration Pantoprazole Sodium 40 mg/ 10 mls @ 5 mls/min 07/05/23 09:00 07/11/23 07:39 Syringe IV 08/04/23 08:59 5 mls/min BID SAM Administration Fentanyl Citrate 2,500 mcg in 250 mls @ 10 mls/hr 07/05/23 10:15 07/11/23 07:16 Fentanyl Citrate IV 07/19/23 10:14 100 mcg/hr .Q25H SAM 10 mls/hr Titration Protocol 100 MCG/HR Cefepime HCl 1,000 mg/ Syringe 10 mls @ 5 mls/min 07/10/23 17:00 07/11/23 04:36 IV 07/14/23 16:59 5 mls/min Q12H SAM Administration Propofol 1,000 mg in 100 mls @ 22.974 mls/hr 07/10/23 13:00 07/11/23 12:06 Diprivan IV 07/13/23 12:59 35 mcg/kg/min .Q4H22M SAM 23 mls/hr Administration Protocol 35 MCG/KG/MIN Polyethylene Glycol 17 gm 07/06/23 09:00 07/11/23 07:37 Polyethylene (Miralax) 17 Gm Pack PO 08/05/23 08:59 17 gm DAILY SAM Administration Propofol 20 mg 07/10/23 12:55 07/11/23 00:37 Propofol Bolus From Bag IV 07/13/23 12:54 20 mg Q5M PRN Administration Sedation Sennosides 8.8 mg 07/08/23 11:00 07/11/23 07:37 Sennosides 8.8 Mg/5 Ml Udc PO 08/07/23 10:59 8.8 mg DAILY SAM Administration Sterile Water 30 ml 07/05/23 11:30 07/11/23 12:05 Tube Feeding Water Flush OG 08/04/23 11:29 30 ml Q4H SAM Administration Thiamine HCl 100 mg 07/05/23 10:45 07/11/23 07:38 Thiamine Hcl 100 Mg Tab PO 08/04/23 10:44 100 mg QAM SAM Administration (1) Pneumonia involving right lung Lung location: upper lobe of lung Pneumonia type: due to unspecified organism Qualified Code(s): J18.9 - Pneumonia, unspecified organism
[2023-07-11] MEDS ORDERED: SODIUM CHLORIDE 0.9% 1,000 ML IV PRN (13:27)
--- NOTE | 2023-07-11 15:52 | XRay Report ---
XR chest 1V portable HISTORY: Evaluate lines and tubes. Right jugular central venous catheter placement. COMPARISON: Chest 07/10/2023. FINDINGS: Endotracheal tube terminates approximately 5.5 cm and the melani. This remains unchanged. T he nasogastric tube terminates in the stomach. No pneumothorax. The heart remains mildly enlarged. Ri ght greater than left airspace opacities persist. Pulmonary edema is again noted. Trace bilateral ple ural effusions. A right jugular central venous catheter terminates in the SVC/brachiocephalic junctio n. IMPRESSION: 1. Satisfactory support line placement. 2. No pneumothorax. 3. Bilateral airspace opacities and pulmonary edema persist. ACT 112: Negative or not required by law. Electronically signed by: Roby Lane M.D. 07/11/2023 3:50 PM
--- NOTE | 2023-07-11 16:56 | Procedure Note ---
Procedure Note Date of Service July 11, 2023 Note Procedure date: Noted above Procedure: Temporary hemodialysis catheter Pre-procedure indication: Need for temporary hemodialysis Post-procedure Diagnosis: same as above Prior to Procedure: Informed Consent: The risks, benefits, indications, potential complications, and alternatives were explained to the patient's family, daughter and informed consent obtained. Attending Staff: Shahid Easley DO Resident/APC: Not applicable Skin Prep: Chlorhexidine Anesthesia: 4 mL 1% lidocaine without epinephrine The identity of the patient was confirmed and a bedside time out was performed. Description of Procedure: After sterile prep and sterile drape utilizing standard sterile technique the superficial skin of the right internal jugular area was anesthetized. The target vessel was identified and entered with an 18- gauge needle. Dark venous blood return was noted. A guidewire was inserted through the needle and into the vessel. The needle was withdrawn and a skin valeria was made. A tissue dilator was advanced via Seldinger technique and removed. A double lumen catheter was inserted via Seldinger technique and the guidewire removed. All ports benji and flushed easily, and the catheter was secured via nylon suture. A sterile dressing was then applied. Complications: None Estimated blood loss: Trace Patient tolerated the procedure well. Coding CPT Codes Tubes, Drains, and Vasc Access - Tubes, Drains, and Vasc Access: [id number] Insertion Of Non-tunneled Catheter Age 4 Yrs> ([id number]) [facility] [place] Procedure Codes (Charges) Tubes, Drains, and Vasc Access Procedure 1: Tubes, Drains, and Vasc Access: [id number] Insertion Of Non-tunneled Catheter Age 4 Yrs>
[2023-07-11] MEDS ORDERED: STAT IV Infusion **Titration per Protocol STA ×2 (18:42→20:15)
[2023-07-11] MEDS: dexMEDEtomidine 200 MCG/50 ML BAG IV SCH (19:28)
[2023-07-11] MEDS: FUROSEMIDE 40 MG/4 ML VIAL IV ONE (19:56)
[2023-07-11] MEDS: propofoL 1,000 MG/100 ML VIAL IV SCH (23:06)
[2023-07-12] MEDS: PROPOFOL BOLUS FROM BAG IV PRN (00:17)
[2023-07-12 05:32] LABS: BUN Creatinine Ratio 18.9 (10-20); Calcium 8.5 mg/dl (8.6-10.3); Creatinine Clr Calc Pharmacy 20.8 ml/min; Est GFR (African American) 14.6 ml/min; Est GFR (Non-African American) 12.6 ml/min; Magnesium 2.8 mg/dl (1.7-2.4); Phosphorus 5.7 mg/dl (2.5-4.9); Potassium 4.7 mmol/L (3.5-5.1)
[2023-07-12 05:34] LABS: Hematocrit (blood only) 21.4 % (42.0-52.0); Hemoglobin 6.6 g/dl (14.0-18.0); Mean Corpuscular Hemoglobin 28.9 pg (25.0-34.0); Mean Corpuscular Hgb Conc 30.8 g/dL (32.0-36.0); Mean Corpuscular Volume 93.9 fL (80.0-100.0); Mean Platelet Volume 13.6 fL (9.4-12.4); Nucleated RBC # (auto) 0.04 K/uL (0.00-0.12); Nucleated RBC % (auto) 0.3 %; Platelet Count 39 K/uL (130-400); RDW Coefficient of Variation 19.9 % (11.5-14.5); RDW Standard Deviation 65.7 fL (36.4-46.3); Red Blood Count 2.28 M/uL (4.70-6.10); White Blood Count 15.85 K/ul (4.8-10.8)
[2023-07-12] MEDS ORDERED: SODIUM CHLORIDE 0.9% 250 ML IV PRN ×2 (05:46→09:48)
[2023-07-12] MEDS ORDERED: STAT IV Infusion **Titration per Protocol STA ×2 (05:49→10:45)
[2023-07-12 05:52] LABS: Basophils # (auto) 0.01 K/uL (0.00-0.20); Basophils % (auto) 0.1 %; Eosinophils # (auto) 0.07 K/uL (0.00-0.50); Eosinophils % (auto) 0.4 %; Immature Granulocytes # (auto) 0.05 K/uL (0.01-0.20); Immature Granulocytes % (auto) 0.3 %; Lymphocytes # (auto) 12.44 K/uL (1.20-3.40); Lymphocytes % (auto) 78.5 %; Monocytes # (auto) 1.68 K/uL (0.11-0.59); Monocytes % (auto) 10.6 %; Neutrophils % (auto) 10.1 %
[2023-07-12] MEDS: dexMEDEtomidine 200 MCG/50 ML BAG IV SCH (06:35)
[2023-07-12] MEDS ORDERED: SODIUM CHLORIDE 0.9% 1,000 ML IV PRN (07:42)
--- NOTE | 2023-07-12 08:04 | Critical Care Progress Note ---
Date of Service July 12, 2023 Assessment & Plan (1) Acute and chronic respiratory failure: (2) History of tracheostomy: (3) Chronic right-sided heart failure: (4) Tobacco use: (5) COPD (chronic obstructive pulmonary disease): (6) Chronic respiratory failure: (7) Pneumonia: (8) (HFpEF) heart failure with preserved ejection fraction: (9) Anemia: (10) CLL (chronic lymphocytic leukemia): Plan Reason Critically Ill: 57-year-old male past medical history of CML not on any treatment, HFrEF, COPD on oxygen, GERD was brought in intubated for respiratory distress Neuro - [facility] ICU: Negative Propofol and fentanyl for sedation -Attempted transition to Precedex to allow increasing awareness and hopefully involved patient in long-term medical decision making Cardiac - --Elevated troponin --> trending down Likely secondary to type II [place] EKG does not show any ST-T wave changes -- HFpEF BNP 215 at the time of presentation 2D echo 05/24/2023: EF 65 to 70%, grade 1 diastolic dysfunction, RV normal in size and function -- Bilateral upper extremity swelling Doppler negative bilateral upper extremity on 07/07/2023 Respiratory - -- VDRF Multifactorial Likely secondary to COPD exacerbation secondary to entero-/rhinovirus Continue with ventilatory support Keep RASS -1 --Chronic hypercapnic respiratory failure -Patient with baseline bicarbonate levels routinely in the high 30s, twice in 2022 patient had serum bicarbonate greater than 40 S/p bronch 07/05/2023, no evidence of alveolar hemorrhage Follow-up [facility] culture CT chest 07/05/2023: Dense consolidative process in the right lower lobe Centrilobular and paraseptal emphysema appreciated bilaterally Minimal mediastinal and right hilar lymphadenopathy --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 Not in exacerbation On Advair and Spiriva at home GI - -- History of GERD Continue with pantoprazole RENAL/LYTES - -- BEN -- reviewed with nephrology - prerenal etiology Mixed acid-base disorder: Not fully compensated -Patient has limited ability to compensate for acid-base disorders, currently with significant acute kidney injury and significant end-stage COPD who has experienced several episodes of hypercapnic encephalopathy leading to emergent intubation -I feel the safest approach is to proceed with tracheostomy to liberate from the ventilator given family stating patient's goals are to continue aggressive medical treatment, especially in the setting of oncologic treatment options predisposing to pneumonia, upper respiratory tract infections and edema -Patient previously had extensive oozing from percutaneous dilatation tracheostomy site requiring transfusion of blood products. Institution currently has limited supply of platelets and will likely continue into the near future. Patient would benefit from surgical evaluation as well given this is a redo tracheostomy, we do not have ENT services available for tracheostomy. 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 Given persistent need for blood product will consult general surgery for possible splenectomy while awaiting oncology input. S/p IVIG on 07/09/2023 as per recommendation of hematology -- Acute anemia Receiving 7th unit PRBC this morning. -Ordering second unit empirically as patient is hypotensive during dialysis with 1 unit transfusing and would benefit from increased oxygen carrying capacity to hopefully allow for ultrafiltration No documented melena, OGT suction is clean. CT abdomen pelvis 07/05/2023 does not show any signs of retroperitoneal bleed GI on board -Concerned for sequestration given splenomegaly and no obvious source of bleeding -Discussed with general surgery, if family decides to proceed with splenectomy may need tertiary care referral versus minimally invasive surgeon Monitor H&H, transfuse for hemoglobin less than 7 --Thrombocytopenia Continue to monitor ID - -- Multilobar pneumonia Mostly affecting the right side Procalcitonin 0.19 Nasal MRSA negative Continue with broad-spectrum antibiotics Follow sputum culture Day 12/30 cefepime --Prophylaxis VTE: IPC GI: Pantoprazole twice daily Lines: Peripheral Diet: Tube feeds Disposition: ICU Had extensive discussion with the patient's daughter and ex- who is providing support. Patient is at extremely high risk for need for reintubation. Explained weighing different treatment options to include initiation of chemotherapy versus splenectomy, discussed with general surgery who reports patient would necessitate transfer to higher level institution should splenectomy be definitively indicated. I am concerned the patient is going to continue to need blood product transfusion, no obvious bleeding and I believe he is sequestering his blood cells. Family is interested in receiving additional opinions from [facility]. Explained high risk for blood product and our system limitations should he have any bleeding complications which were present on prior trach. All in agreement that patient would benefit from transfer to Center with surgical backup Admission and Anticipated Discharge Date Admission Date: July 04, 2023 Supervising Physician Co-Signing Physician Notes I have personally spent 100 minutes of critical care time in the direct management of this patient. This is a life/limb threatening event. This includes time spent evaluating patient, direct bedside care, chart review, placing orders, interpretation of diagnostic studies, discussion with consultants, patient, and/or family members regarding treatment decisions, as well as other required patient management activities. This time is exclusive of all separately billable procedures, and teaching time and separate from and in addition to any other critical care service time. Subjective No overnight events, receiving 1 unit packed red blood cells for decrease in hemoglobin. Did not tolerate transition to Precedex overnight to decrease sedation and allow for interaction Review of Systems Review of Systems: Unobtainable due to endotracheal tube Physical Exam Physical Exam: General: Sedated. nontoxic. Skin: Warm, dry, Head: Atraumatic Ears, nose, mouth and throat: airway obscured by endotracheal tube Cardiovascular: Normal peripheral perfusion Respiratory: Ventilator settings reviewed Gastrointestinal: Non distended Musculoskeletal: No deformity Results & Data Results & Data Vital Signs (Past 12 Hours) Vital Signs Temp Pulse Resp BP Pulse Ox O2 Del Method FiO2 07/12/23 05:00 94 H 26 H 91 07/12/23 05:00 96/43 L 07/12/23 04:29 97 H 26 H 91 07/12/23 04:29 98/44 L 07/12/23 04:00 86/39 L 07/12/23 04:00 86 26 H 91 07/12/23 04:00 37.7 C H 07/12/23 04:00 40 07/12/23 03:30 95 H 27 H 92 40 07/12/23 03:00 104/50 L 07/12/23 03:00 93 H 26 H 92 07/12/23 02:00 104/48 L 07/12/23 02:00 91 H 23 91 07/12/23 01:00 110/53 L 07/12/23 01:00 92 H 26 H 93 07/12/23 00:49 37.3 C 07/12/23 00:20 93 H 30 H 92 40 07/12/23 00:00 108/50 L 07/12/23 00:00 93 H 26 H 92 07/12/23 00:00 40 07/12/23 00:00 89 07/11/23 23:00 102/49 L 07/11/23 23:00 85 23 92 07/11/23 22:30 113/53 L 07/11/23 22:30 94 H 26 H 91 07/11/23 22:15 123/54 L 07/11/23 22:15 100 H 25 H 93 07/11/23 22:00 92 H 24 92 07/11/23 22:00 112/55 L 07/11/23 21:45 104/48 L 07/11/23 21:45 90 24 91 07/11/23 21:30 88 26 H 91 07/11/23 21:30 98/46 L 07/11/23 21:15 90 27 H 91 07/11/23 21:15 99/48 L 07/11/23 21:15 99/48 L 07/11/23 21:00 90 27 H 91 07/11/23 21:00 97/48 L 07/11/23 21:00 97/48 L 07/11/23 20:45 90 26 H 92 07/11/23 20:45 97/46 L 07/11/23 20:45 97/46 L 07/11/23 20:42 96/47 L 07/11/23 20:42 92 H 26 H 92 07/11/23 20:34 91 H 26 H 93 07/11/23 20:15 96 H 27 H 95 07/11/23 20:15 121/66 07/11/23 20:12 102 H 29 H 95 40 07/11/23 20:00 98 H 31 H 94 07/11/23 20:00 101/56 L 07/11/23 20:00 Mechanical Vent 40 07/11/23 20:00 37.5 C 07/11/23 20:00 40 Critical Care Results & Data Vital Signs (Past 12 Hours) Vital Signs Temp Pulse Resp BP Pulse Ox O2 Del Method FiO2 07/12/23 05:00 94 H 26 H 91 07/12/23 05:00 96/43 L 07/12/23 04:29 97 H 26 H 91 07/12/23 04:29 98/44 L 07/12/23 04:00 86/39 L 07/12/23 04:00 86 26 H 91 07/12/23 04:00 37.7 C H 07/12/23 04:00 40 07/12/23 03:30 95 H 27 H 92 40 07/12/23 03:00 104/50 L 07/12/23 03:00 93 H 26 H 92 07/12/23 02:00 104/48 L 07/12/23 02:00 91 H 23 91 07/12/23 01:00 110/53 L 07/12/23 01:00 92 H 26 H 93 07/12/23 00:49 37.3 C 07/12/23 00:20 93 H 30 H 92 40 07/12/23 00:00 108/50 L 07/12/23 00:00 93 H 26 H 92 07/12/23 00:00 40 07/12/23 00:00 89 07/11/23 23:00 102/49 L 07/11/23 23:00 85 23 92 07/11/23 22:30 113/53 L 07/11/23 22:30 94 H 26 H 91 07/11/23 22:15 123/54 L 07/11/23 22:15 100 H 25 H 93 07/11/23 22:00 92 H 24 92 07/11/23 22:00 112/55 L 07/11/23 21:45 104/48 L 07/11/23 21:45 90 24 91 07/11/23 21:30 88 26 H 91 07/11/23 21:30 98/46 L 07/11/23 21:15 90 27 H 91 07/11/23 21:15 99/48 L 07/11/23 21:15 99/48 L 07/11/23 21:00 90 27 H 91 07/11/23 21:00 97/48 L 07/11/23 21:00 97/48 L 07/11/23 20:45 90 26 H 92 07/11/23 20:45 97/46 L 07/11/23 20:45 97/46 L 07/11/23 20:42 96/47 L 07/11/23 20:42 92 H 26 H 92 07/11/23 20:34 91 H 26 H 93 07/11/23 20:15 96 H 27 H 95 07/11/23 20:15 121/66 07/11/23 20:12 102 H 29 H 95 40 07/11/23 20:00 98 H 31 H 94 07/11/23 20:00 101/56 L 07/11/23 20:00 Mechanical Vent 40 07/11/23 20:00 37.5 C 07/11/23 20:00 40 Lab & Micro Results (Past 24 Hours) RBC 2.28 M/uL (4.70-6.10) L 07/12/23 WBC 15.85 K/ul (4.8-10.8) H 07/12/23 Hgb 6.6 g/dl (14.0-18.0) L* 07/12/23 Hct 21.4 % (42.0-52.0) L 07/12/23 MCV 93.9 fL (80.0-100.0) 07/12/23 MCH 28.9 pg (25.0-34.0) 07/12/23 MCHC 30.8 g/dL (32.0-36.0) L 07/12/23 RDW Standard Deviation 65.7 fL (36.4-46.3) H 07/12/23 RDW Coefficient of Variation 19.9 % (11.5-14.5) H 07/12/23 Plt Count 39 K/uL (130-400) L 07/12/23 MPV 13.6 fL (9.4-12.4) H 07/12/23 Nucleated Red Blood Cells % (auto) 0.3 % 07/12 Nucleated RBC Absolute Count (auto) 0.04 K/uL (0.00-0.12) 0 07/12/23 Neutrophils (%) (Auto) 10.1 % 07/12/23 Lymphocytes (%) (Auto) 78.5 % 07/12/23 Monocytes # (Auto) 1.68 K/uL (0.11-0.59) H 07/12/23 Eosinophils # (Auto) 0.07 K/uL (0.00-0.50) 07/12/23 Immature Granulocyte % (Auto) 0.3 % 07/12/23 Neutrophils # (Auto) 1.60 K/uL (1.40-6.50) 07/12/23 Lymphocytes # (Auto) 12.44 K/uL (1.20-3.40) H 07/12/23 Monocytes # (Auto) 1.68 K/uL (0.11-0.59) H 07/12/23 Eosinophils # (Auto) 0.07 K/uL (0.00-0.50) 07/12/23 Basophils # (Auto) 0.01 K/uL (0.00-0.20) 07/12/23 Immature Granulocyte # (Auto) 0.05 K/uL (0.01-0.20) 4 Na 137 mmol/L (136-145) 07/12/23 K 4.7 mmol/L (3.5-5.1) 07/12/23 Cl 103 mmol/L (98-107) 07/12/23 CO2 22 mmol/L (21-32) 07/12/23 Anion Gap 12 (3-11) H 07/12/23 BUN 89 mg/dl (6-23) H 07/12/23 Creatinine 4.71 mg/dl (0.6-1.4) H* 07/12/23 Estimated GFR ( Amer) 14.6 ml/min 07/12/23 Estimated GFR (Non-Af Amer) 12.6 ml/min 07/12/23 BUN/Creatinine Ratio 18.9 (10-20) 07/12/23 Glu 109 mg/dl (70-99(Fasting)) H 07/12/23 Ca 8.5 mg/dl (8.6-10.3) L 07/12/23 Phosphorus Level 5.7 mg/dl (2.5-4.9) H 07/12/23 2 Mg 2.8 mg/dl (1.7-2.4) H 07/12/23 04:06 Calcium Level 8.5 mg/dl (8.6-10.3) L 07/12/23 04:06 Sim Test Pass 07/12/23 08:53 Diagnostic Findings (Past 24 Hours) Chest X-Ray 07/11/23 15:34 XR chest 1V portable HISTORY: Evaluate lines and tubes. Right jugular central venous catheter placement. COMPARISON: Chest 07/10/2023. FINDINGS: Endotracheal tube terminates approximately 5.5 cm and the melani. This remains unchanged. The nasogastric tube terminates in the stomach. No pneumothorax. The heart remains mildly enlarged. Right greater than left airspace opacities persist. Pulmonary edema is again noted. Trace bilateral pleural effusions. A right jugular central venous catheter terminates in the SVC/brachiocephalic junction. IMPRESSION: 1. Satisfactory support line placement. 2. No pneumothorax. 3. Bilateral airspace opacities and pulmonary edema persist. ACT 112: Negative or not required by law. Electronically signed by: Roby Lane M.D. 07/11/2023 3:50 PM I & O Totals 24 Hours 07/11/23 07/12/23 07/13/23 06:59 06:59 06:59 Intake Total 4203.662 / 4203.662 1351.736 / 1351.736 38.125 / 38.125 Output Total 346 / 346 65 / 65 Balance 3857.662 / 3857.662 1286.736 / 1286.736 38.125 / 38.125 Cumulative 07/04/23 10:51 thru 07/12/23 07:04 Intake Total 61989.074 Output Total 5937 Balance 75756.074 RT Ventilator Mngmt (Last Documented) Ventilator Ordered Settings Ventilator Support Mode Assist Control 07/12/23 04:00 Respiratory Rate 26 07/12/23 05:00 Ventilator Tidal Volume 470 07/12/23 04:00 Setting Minute Ventilation 12.6 07/12/23 03 :30 Ventilator Positive Pressure 12 07/10/23 12:00 Support Setting Positive End Expiratory 8 07/12/23 04:00 Pressure Fraction of Inspired Oxygen 40 07/12/23 04:00 Peak Inspiratory Flow 47 07/09/23 15:01 Machine Comment Pt placed on SBT 07/10/23 11:25 Ventilator - PT Measurements Respiratory Rate 26 Exhaled Tidal Volume 475 Minute Ventilation 12.6 Peak Inspiratory Airway 38 Pressure Plateau Pressure 28 Respiratory Cycle Inspiratory: 1:2.3 Expiratory Ratio Inspiratory Phase Time 0.7 End-Tidal CO2 37 Static Lung Compliance 23.75 Dynamic Lung Compliance 15.83 Normal Static Lung Compliance 44.00 Patient Measurements Comment Patient comfortably resting on pressure support at this time, RN aware. Coding Level of Care Code 93732 CRITICAL CARE 1ST 30-74M Additional Critical Care Time Additional 30min Critical Care Time: Yes - 95176 x 2 (60 addl min) Diagnoses Acute on chronic respiratory failure with hypercapnia J96.22 Respiratory failure complication: hypercapnia History of tracheostomy Z98.890 Chronic right-sided heart failure I50.812 Tobacco use Z72.0 Pulmonary emphysema, unspecified emphysema type J43.9 COPD type: emphysema Emphysema type: unspecified Chronic respiratory failure with hypercapnia J96.12 Respiratory failure complication: hypercapnia Pneumonia J18.9 Laterality: right Lung location: unspecified part of lung Pneumonia type: due to unspecified organism (HFpEF) heart failure with preserved ejection fraction I50.30 Anemia due to other cause, not classified D64.89 Anemia type: other cause Other causes of anemia: other cause, not classified CLL (chronic lymphocytic leukemia) C91.10 Additional Codes Critical Care Time - Additional 30min Critical Care Time: Yes - 22499 x 2 (60 addl min) ([id number]) (1) Acute and chronic respiratory failure Respiratory failure complication: hypercapnia Qualified Code(s): J96.22 - Acute and chronic respiratory failure with hypercapnia (5) COPD (chronic obstructive pulmonary disease) COPD type: emphysema Emphysema type: unspecified Qualified Code(s): J43.9 - Emphysema, unspecified (6) Chronic respiratory failure Respiratory failure complication: hypercapnia Qualified Code(s): J96.12 - Chronic respiratory failure with hypercapnia (7) Pneumonia Laterality: right Lung location: unspecified part of lung Pneumonia type: due to unspecified organism Qualified Code(s): J18.9 - Pneumonia, unspecified organism (9) Anemia Anemia type: other cause Other causes of anemia: other cause, not classified Qualified Code(s): D64.89 - Other specified anemias
--- NOTE | 2023-07-12 08:11 | Communication Note ---
Date of Service: July 12, 2023 Review on oncologic history, gathered from [facility] Chart from office visit with Dr. Ramirez. 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 The disease is negative for ZAP70 and CD38." FISH Analysis CLL: Results: Abnormal Interpretation: POSITIVE FOR TRISOMY 12 Normal results were observed with the 6, 11 (CCND1), 11 (VASQUEZ), 13, 14 (IgH), and 17 (TP53) probe sets. Ibrutinib started 02/10/2021.On because of heart failure. Current treatment:observation Per doctor James's persepective regarding last follow up of anemia: " The cause of anemia may be multifactorial including CLL, infection, medication, bleeding. He also had low-level vitamin 12 and received injection. The cause of anemia can multifactorial including infection, inflammation, bleeding, medication, CLL and underlying bone marrow failure." Planned routine 5 week follow up, with weekly CBC.
--- NOTE | 2023-07-12 08:22 | Hospitalist Progress Note ---
Date of Service July 12, 2023 Assessment & Plan (1) Pneumonia involving right lung: Plan Mr. Valiente is a 58-year-old male with PMH of chronic lymphocytic leukemia not on any medication now, COPD, chronic diastolic heart failure, chronic hypoxic respiratory failure, hypertension, selective deficiency of immunoglobulin and, dyslipidemia, thrombocytopenia presented to the ED with acute short of breath since the morning of arrival and needed intubation due to desaturation and shortness of breath with unresponsiveness at ED. He remains intubated at this time and declines any pursuit of trach at this time. Course complicated by fever, BEN, and lack of bowel movement. Fevers resolved-24 hours afebrile over 07/07-. TMAX 37.6 07/09. BEN likely ATN per nephrology, suspect renal function has yet to plateau and will continue to uptrend. Now passing stool, softer abdomen. HGB dropping; review of prior hematology consult revealed that losses likely 2/2 ongoing CLL and sepsis. B12/folate this admission wnl. Patient has recent admission in 05/2023 of respiratory failure ultimately requiring tracheostomy. Currently, SBT ongoing for "diaphragm" exercise rather than plan extubation. Given copious secretions and slow progress from a respiratory standpoint, extubation has been delayed to prevent reintubation. 07/11 Heme consulted given similar presentation to recent administration. Now s/p 6 U PRBC; Heme feels 2/2 sepsis at this time. No signs of bleeding via GI losses. Worsening renal dysfunction 2/2 ATN--Cr continues to rise, raising concerns for dialysis Remains intubated. Conversation held between executive communications manager and family regarding code status, ongoing measures. Will appreciate those recommendations. Family not at bedside during evaluation. Patient with worsening organ failure--respiratory and now renal. 07/12 Patient's hemodynamic status remains tenuous. Required pressor support to facilitate COMPLIANCE CONSULTANT. Patient now on 8 Unit PRBC for hemoglobin of 6.[address] Ramirez, in hopes ongoing discussion regarding GOC and treatment options from a CLL/anemia standpoint could be made clear. #Anion gap metabolic acidosis secondary to renal failure #BEN, likely 2/2 ATN likely prerenal iso sepsis hypotension, as well as contrast load Cr. up to 1.69, baseline 0.9-1.2 Avoid nephrotoxic, maintain maps >65 Monitor UOP -UOP decreased, also note patient on chronic diuretics at home 80mg BID -Trend BMP, will likely increase; avoid aggressive hydration -Uric acid 7.5 (potassium normal, calcium stable/low, phos mild elevation) Renal ultrasound reviewed, kidneys normal, no hydro noted =Ongoing COMPLIANCE CONSULTANT as tolerated hemodynamically: plan for daily 3 days, then reassess #Acute on chronic respiratory failure with hypercapnia/hypoxia requiring mechanical ventilation #Multilobar pneumonia #Severe sepsis POA: Likely secondary to above. Leukocytosis (iso CLL) and tachycardia at presentation. Lactate elevated. Patient presented with acute shortness of breath, needed intubation in the ED due to unresponsiveness and acute desaturation. Admitting CXR with multifocal airspace opacities, admitting ABG with hypercapnia and hypoxia. CT Chest on 07/05 with dense right > left consolidation, progressed since 05/22 Bronchoscopy on 07/05 with clear secretions MRSA is negative. Respiratory viral panel negative: vancomycin discontinued Patient intubated on 07/04, remains intubated at this time Patient is being managed in the ICU. NGTD on 07/05 bronch cultures; NGTD blood cultures, UA Continue Cefepime Trend daily CBC/BMP: ordered Vent/SBT per ICU -Trach discussion--on going discussions; pending possible transfer #Fevers *resolved Potentially multifactorial Follow infectious work up, reduced medications that may contribute Consider CLL as etiology Follow fever curve and clinical status #Sinus Tachycardia *resolved iso critical illness Monitor on telemetry #Constipation/Obstipation*improving -Bowel regimen in place #Acute normocytic anemia #Chronic anemia of chronic disease No documented melena, bronchoscopy without alveolar hemorrhage, plan for CT abdomen pelvis. Status post 6 units Transfuse to maintain hemoglobin above 7. 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 White cell count in 40s to 50s. Peripheral smear with no evidence of transformation to acute leukemia. Follow-up with oncology upon discharge CBC ordered in am Down trending in all cell lines IgG 552/4 07/08, recommended previously by heme to infuse Igg 400mg/kg if less than <500 Heme consulted: NTD, likely sepsis -400mg/kg ordered IVIG 07/09 #Thrombocytopenia *stable holding fast in 30s at this time #COPD Emphysema on imaging Resume budesonide and formoterol when able SBT per ICU; plan for trach as above #Chronic right-sided heart failure May 2023 echo with EF of 65 to 70%, grade 1 diastolic dysfunction. BNP elevated at 215. Chest x-ray consistent with mild congestion. Home regimen: Lasix 80mg BID Monitor for volume overload -Signs of ?edema on CXR -Discussed diuretics with ICU: plan for holding in interim while ATN resolves -COMPLIANCE CONSULTANT for volume management #HTN Now relatively hypotensive 2/2 sepsis. #GERD Continue home PPI OGT, TF per ICU Analgesia: Fentanyl, analgesia holidays per ICU Sedation: Propofol, sedation holidays per ICU DVT SCDS 2/2 thrombocytopenia/anemia HOB 30 Ulcer: PPI IV hyperglycemia protocol per ICU Bowel regimen prn Indwelling cath Abx: Cefepime SBT per ICU Potentially transfer Admission and Anticipated Discharge Date Admission Date: July 04, 2023 Subjective Ongoing family discussions regarding next steps of care between Legal Assistant/family Patient remains sedated 2/2 vent dyssynchrony and agitation Physical Exam Constitutional: hypotensive wile COMPLIANCE CONSULTANT ongoing, sedated Respiratory: remains intubated at this time Gastrointestinal (Abdomen): distended, firm, no grimacing appreciated on deep palpation Results & Data Results & Data Vital Signs (Past 12 Hours) Vital Signs Temp Pulse Resp BP Pulse Ox FiO2 07/12/23 05:00 94 H 26 H 91 07/12/23 05:00 96/43 L 07/12/23 04:29 97 H 26 H 91 07/12/23 04:29 98/44 L 07/12/23 04:00 86/39 L 07/12/23 04:00 86 26 H 91 07/12/23 04:00 37.7 C H 07/12/23 04:00 40 07/12/23 03:30 95 H 27 H 92 40 07/12/23 03:00 104/50 L 07/12/23 03:00 93 H 26 H 92 07/12/23 02:00 104/48 L 07/12/23 02:00 91 H 23 91 07/12/23 01:00 110/53 L 07/12/23 01:00 92 H 26 H 93 07/12/23 00:49 37.3 C 07/12/23 00:20 93 H 30 H 92 40 07/12/23 00:00 108/50 L 07/12/23 00:00 93 H 26 H 92 07/12/23 00:00 40 07/12/23 00:00 89 07/11/23 23:00 102/49 L 07/11/23 23:00 85 23 92 07/11/23 22:30 113/53 L 07/11/23 22:30 94 H 26 H 91 07/11/23 22:15 123/54 L 07/11/23 22:15 100 H 25 H 93 07/11/23 22:00 92 H 24 92 07/11/23 22:00 112/55 L 07/11/23 21:45 104/48 L 07/11/23 21:45 90 24 91 07/11/23 21:30 88 26 H 91 07/11/23 21:30 98/46 L 07/11/23 21:15 90 27 H 91 07/11/23 21:15 99/48 L 07/11/23 21:15 99/48 L 07/11/23 21:00 90 27 H 91 07/11/23 21:00 97/48 L 07/11/23 21:00 97/48 L 07/11/23 20:45 90 26 H 92 07/11/23 20:45 97/46 L 07/11/23 20:45 97/46 L 07/11/23 20:42 96/47 L 07/11/23 20:42 92 H 26 H 92 07/11/23 20:34 91 H 26 H 93 Laboratory Results Short CBC 07/12/23 Range/Units 04:06 WBC 15.85 H (4.8-10.8) K/ul Hgb 6.6 L* (14.0-18.0) g/dl Hct 21.4 L (42.0-52.0) % Plt Count 39 L (130-400) K/uL BMP 07/12/23 04:06 Sodium 137 Potassium 4.7 Chloride 103 Carbon Dioxide 22 BUN 89 H Creatinine 4.71 H* D Glucose 109 H Calcium 8.5 L Medications Administered Home Medications Medication Instructions Recorded Confirmed Last Taken tiotropium bromide 18 mcg capsule 18 mcg inhalation DAILY 06/25/22 07/04/23 Unknown with inhalation device (Spiriva with HandiHaler) albuterol sulfate 90 mcg/actuation 2 puff inhalation Q4 PRN Shortness 05/22/23 07/04/23 Unknown aerosol inhaler Of Breath Or Wheezing epinephrine 0.3 mg/0.3 mL 0.3 mg IM UD PRN bee stings 05/22/23 07/04/23 Unknown injection, auto-injector (EpiPen) fluticasone propionate 230 2 puff inhalation AMHS 05/22/23 07/04/23 Unknown mcg-salmeterol 21 mcg/actuation HFA inhaler (Advair HFA) furosemide 80 mg tablet 80 mg PO BID 05/22/23 07/04/23 Unknown omeprazole 20 mg capsule,delayed 20 mg PO DAILYBB 05/22/23 07/04/23 Unknown release cyanocobalamin (vitamin B-12) 500 1,000 mcg (2 x 500 mcg) PO QAM #30 06/10/23 07/04/23 Unknown mcg tablet tabs folic acid 1 mg tablet 1 mg PO QAM #30 tabs 06/10/23 07/04/23 Unknown Active Medications Generic Name Dose Route Start Last Admin Trade Name Freq PRN Reason Stop Dose Admin Budesonide 0.25 mg 07/04/23 19:00 07/12/23 08:00 Budesonide 0.25 Mg/2 Ml Vial (Pulmicort) NEB 08/03/23 18:59 0.25 mg BIDR SAM Administration Fentanyl Citrate 50 mcg 07/05/23 10:15 07/12/23 03:25 Fentanyl Bolus From Bag IV 07/19/23 10:14 50 mcg Q60M PRN Administration Pain or Agitation Folic Acid 1 mg 07/05/23 10:45 07/12/23 08:36 Folic Acid 1 Mg Tab PO 08/04/23 10:44 1 mg QAM SAM Administration Formoterol Fumarate 20 mcg 07/04/23 19:00 07/12/23 08:00 Formoterol 20 Mcg/2 Ml Vial INH 08/03/23 18:59 20 mcg BIDR SAM Administration Pantoprazole Sodium 40 mg/ 10 mls @ 5 mls/min 07/05/23 09:00 07/12/23 08:37 Syringe IV 08/04/23 08:59 5 mls/min BID SAM Administration Fentanyl Citrate 2,500 mcg in 250 mls @ 10 mls/hr 07/05/23 10:15 07/12/23 13:52 Fentanyl Citrate IV 07/19/23 10:14 100 mcg/hr .Q25H SAM 10 mls/hr Titration Protocol 100 MCG/HR Cefepime HCl 1,000 mg/ Syringe 10 mls @ 5 mls/min 07/10/23 17:00 07/12/23 05:45 IV 07/14/23 16:59 5 mls/min Q12H SAM Administration Dexmedetomidine/Sodium Chloride 400 mcg in 100 mls @ 40.538 mls/hr 07/12/23 11:15 07/12/23 14:52 Precedex IV 07/16/23 11:14 1.5 mcg/kg/hr .Q2H29M SAM 40.5 mls/hr Administration Protocol 1.5 MCG/KG/HR Norepinephrine Bitartrate 4 mg in 250 mls @ 20.269 mls/hr 07/12/23 10:45 07/12/23 14:53 Levophed/D5w IV 08/11/23 10:44 0.05 mcg/kg/min .D30J96H SAM 20.3 mls/hr Titration Protocol 0.05 MCG/KG/MIN Polyethylene Glycol 17 gm 07/06/23 09:00 07/12/23 08:36 Polyethylene (Miralax) 17 Gm Pack PO 08/05/23 08:59 17 gm DAILY SAM Administration Sennosides 8.8 mg 07/08/23 11:00 07/12/23 08:36 Sennosides 8.8 Mg/5 Ml Udc PO 08/07/23 10:59 8.8 mg DAILY SAM Administration Sterile Water 30 ml 07/05/23 11:30 07/12/23 13:26 Tube Feeding Water Flush OG 08/04/23 11:29 Not Given Q4H SAM Thiamine HCl 100 mg 07/05/23 10:45 07/12/23 08:36 Thiamine Hcl 100 Mg Tab PO 08/04/23 10:44 100 mg QAM SAM Administration (1) Pneumonia involving right lung Lung location: upper lobe of lung Pneumonia type: due to unspecified organism Qualified Code(s): J18.9 - Pneumonia, unspecified organism
[2023-07-12] MEDS ORDERED: Nursing to Pharmacy Communication SCH (08:45)
[2023-07-12 09:05] LABS: iSTAT Allen Test Pass; iSTAT Art Bld Gas pCO2 Correct 54 mmHg (35-46); iSTAT Art Bld Gas pH Corrected 7.198 (7.35-7.45); iSTAT Arterial Blood Gas HCO3 21 meg/L (19-24); iSTAT Arterial Blood Gas pCO2 52 mmHg (35-46); iSTAT Arterial Blood Gas pH 7.21 (7.35-7.45); iSTAT Arterial Blood Gas pO2 82 mmHg (80-95); iSTAT Arterial Blood Gas pO2 C 86; iSTAT Carbon Dioxide 22 mmol/L (24-31); iSTAT FiO2 60 %; iSTAT Hematocrit 24 % (42-52); iSTAT Hemoglobin 8.2 g/dl (14.0-18.0); iSTAT Site R Radial; iSTAT Sodium 136 mmol/L (135-144)
--- NOTE | 2023-07-12 09:47 | Surgery Consultation ---
Date of Consultation July 12, 2023 Assessment & Plan (1) Anemia: complex medical patient indications for splenectomy reasonable if family wishes heroic efforts would transfer to tertiary hospital for possible surgical intervention due to his poor surgical candidacy and my minimal experience with splenectomy especially potentially laparoscopic approach History of Present Illness Attending Physician: Susan Ku MD History of Present Illness This is a 58 year old with CLL admitted to with respiratory failure secondary to pneumonia and end stage COPD currently intubated and sedated. He has a significanrt anemia and thrombocytopenia likely multifactorial due to infection and CLL. He also has significant splenomegaly which is likely responsible for his anemia and thrombocytopenia. He has received multiple transfusions. He currently is not on treatment for his CLL due to his intiolerance of the meds. I am asked to evaluated him for possible splenectomy. Allergies Allergy/AdvReac Type Severity Reaction Status Date / Time Penicillins Allergy Intermediate Hives Verified 07/04/23 12:36 bee venom protein (honey bee) Allergy Unknown ON [facility] MED Verified 07/04/23 12:36 LIST Home Medications Medication Instructions Recorded Confirmed Type tiotropium bromide 18 mcg capsule 18 mcg inhalation DAILY 06/25/22 07/04/23 History with inhalation device (Spiriva with HandiHaler) albuterol sulfate 90 mcg/actuation 2 puff inhalation Q4 PRN Shortness 05/22/23 07/04/23 History aerosol inhaler Of Breath Or Wheezing epinephrine 0.3 mg/0.3 mL 0.3 mg IM UD PRN bee stings 05/22/23 07/04/23 History injection, auto-injector (EpiPen) fluticasone propionate 230 2 puff inhalation AMHS 05/22/23 07/04/23 History mcg-salmeterol 21 mcg/actuation HFA inhaler (Advair HFA) furosemide 80 mg tablet 80 mg PO BID 05/22/23 07/04/23 History omeprazole 20 mg capsule,delayed 20 mg PO DAILYBB 05/22/23 07/04/23 History release cyanocobalamin (vitamin B-12) 500 1,000 mcg (2 x 500 mcg) PO QAM #30 06/10/23 07/04/23 Rx mcg tablet tabs folic acid 1 mg tablet 1 mg PO QAM #30 tabs 06/10/23 07/04/23 Rx Patient History Medical History Acute and chronic respiratory failure 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] HTN (hypertension) Lung nodules Chronic right-sided heart failure Tobacco use Chronic respiratory failure COPD (chronic obstructive pulmonary disease) Chronic lymphocytic leukemia CHF (congestive heart failure) Necrotizing pneumonia CLL (chronic lymphocytic leukemia) Obesity COPD (chronic obstructive pulmonary disease) HLD (hyperlipidemia) HTN (hypertension) Acute respiratory failure with hypoxia Acute leukemia Surgical History History of tracheostomy Hx of appendectomy History of bronchoscopy 12/15/22 - @ [facility] [place] Family History Other Heart disease Lung cancer Social History Smoking Status: Current every day smoker Tobacco Type: Cigarettes Second Hand Exposure: No; Do You Dip or Chew Tobacco: No; Hx Alcohol Use: Yes Alcohol type: beer Alcohol Intake Frequency: 2-4 x/Month Hx Substance Use: No Preferred Language: Barbadian Communication Ability: Impaired Shot Hole Shooter Required: No Beliefs That Will Affect Care: None Current Living Situation: Alone Feels Safe at Home: Yes Assistive Devices: Cane Review of Systems Review of Systems: Unobtainable due to endotracheal tube Physical Exam Constitutional: WD/WN, vitals as above Eyes: + anicteric sclerae ENMT: external ear and nose normal, oropharynx normal Neck: trachea midline Respiratory: Auscultation: + diminished lung sounds and + rhonchi intubated Cardiovascular: RRR, no murmur, no edema Gastrointestinal (Abdomen): Inspection/Auscultation: abdomen normal to inspection, + abdomen distended and normal bowel sounds Percussion/Palpation: abdomen soft; abdomen nontender, no guarding and abdomen not rigid Musculoskeletal: Head/Neck/Chest: normocephalic and head atraumatic Skin: no rashes, warm and dry Results & Data Vital Signs (Past 12 Hours) Vital Signs Temp Pulse Pulse Resp BP Pulse Ox FiO2 07/12/23 09:28 37.5 C 79 26 H 78/35 L 97 07/12/23 09:14 37.7 C H 07/12/23 09:09 37.2 C 88 26 H 85/43 L 97 02/20/24 09:00 88 86/46 L 07/12/23 09:00 37.7 C H 92 H 07/12/23 05:00 94 H 26 H 91 07/12/23 05:00 96/43 L 07/12/23 04:29 97 H 26 H 91 07/12/23 04:29 98/44 L 07/12/23 04:00 86/39 L 07/12/23 04:00 86 26 H 91 07/12/23 04:00 37.7 C H 07/12/23 04:00 40 07/12/23 03:30 95 H 27 H 92 40 07/12/23 03:00 104/50 L 07/12/23 03:00 93 H 26 H 92 07/12/23 02:00 104/48 L 07/12/23 02:00 91 H 23 91 07/12/23 01:00 110/53 L 07/12/23 01:00 92 H 26 H 93 07/12/23 00:49 37.3 C 07/12/23 00:20 93 H 30 H 92 40 07/12/23 00:00 108/50 L 07/12/23 00:00 93 H 26 H 92 07/12/23 00:00 40 07/12/23 00:00 89 07/11/23 23:00 102/49 L 07/11/23 23:00 85 23 92 07/11/23 22:30 113/53 L 07/11/23 22:30 94 H 26 H 91 07/11/23 22:15 123/54 L 07/11/23 22:15 100 H 25 H 93 07/11/23 22:00 92 H 24 92 07/11/23 22:00 112/55 L 07/11/23 21:45 104/48 L 07/11/23 21:45 [address] abd pelvis IV con only CLINICAL HISTORY: r/o bleed TECHNIQUE: Helical axial images of the abdomen and pelvis were obtained and displayed. Automated dose lowering techniques and/or adjustment according to patient size were utilized for this exam. This exam was performed with intravenous contrast. COMPARISON: Comparison is made to CT abdomen pelvis 06/07/2023 FINDINGS: Lower chest: For findings above the diaphragm, please see CT chest performed same day. Liver: Unremarkable. No focal lesions are seen. Gallbladder and biliary tree: No calcified gallstones. Normal caliber wall. No intra- or extrahepatic biliary ductal dilation. Pancreas: Unremarkable, no focal lesions. Spleen: Splenomegaly is seen measuring up to 20.3 cm in craniocaudal dimension. Adrenals: Unremarkable. Kidneys and ureters: Unremarkable. Bladder: Ramon catheter is seen. Reproductive organs: Unremarkable. Bowel: A suture is noted in the rectum. Diverticulosis is seen without diverticulitis. Postsurgical changes of appendectomy are seen. Lymph nodes Retroperitoneal: Subcentimeter tianna hepatis nodes are noted. Pelvic: Subcentimeter lymph nodes are noted. Mesenteric: Unremarkable. Peritoneum: Normal. Vessels: Atherosclerotic calcifications are seen. Abdominal wall: Unremarkable. Bones: Degenerative changes in the visualized spine. IMPRESSION: 1. No evidence of acute abnormality, in particular no intracranial hemorrhage is seen. 2. Diverticulosis without diverticulitis. Interval placement of a suture in the colon. 3. Stable splenomegaly. (1) Anemia Anemia type: other cause Other causes of anemia: other cause, not classified Qualified Code(s): D64.89 - Other specified anemias
[2023-07-12] MEDS: NOREPINEPHRINE/D5W 4 MG/250 ML IV ONE (10:48)
[2023-07-12] MEDS: NOREPINEPHRINE/D5W 4 MG/250 ML PLCT IV SCH (10:49)
[2023-07-12] MEDS: dexMEDEtomidine 400 MCG/100 ML Bag (Premixed) IV SCH (11:17)
--- NOTE | 2023-07-12 11:22 | Nephrology Progress Note ---
Date of Service July 12, 2023 Assessment & Plan (1) BEN (acute kidney injury): Plan: now dialysis dependent anuric stage 3 BEN from multifactorial ATN +/- IVIG. C gopal in with near normal Creat of 1.3 But dramatically uptrending to 5.2 07/11 w/ borderline UOP and worsening volume status. Electrolytes are stable but anuric On admission had elevated Lactic acid and Low BP with sepsis and resp failure from pneumonia and also got iv contrast---combination causing ATN. needs supportive care--Good BP, o2 status. maintain hgb/treat anemia Avoid nephrotoxic agents. renal US and CT---reviewed--no Hydronephrosis. CXR from 07/10 is showing some Pulm edema also. ATN has not peaked yet--important at least to discuss dialysis here. See below re goals of care. Drop in UOP is ominous sign that dialysis needs may not be short duration but will follow Plan will be for trach; s/p 07/11 temp dialysis catheter w/ same day BUSINESS SEGMENT MANAGER start; plan daily for 3 days gentle start then reassess. 3 hrs today; no heparin in tx; defer to primary service if pRBC on tx or not but likely to need; profound thrombocytopenia noted. (2) Acute and chronic respiratory failure: Plan: from Pneumonia. Immunocompromised from IgG def s/p IVIG; VDRF w/ trach last month and chronic 02 needs at baseline (3) Goals of care, counseling/discussion: Plan: extended discussion with daughter Sonal 07/11 AM, his daughter, by phone > pt is DNR/DNI but is intubated so worth clarifying status re dialysis. when I brought up DNR/DNI, Sonal stated " that's the first I've heard of it. I want that off of there. If he needs help, the docs need to help him. If he's SOB or needs compressions or whatever, I want that to be done." see 07/11 note for further details of that conversation Low threshold for ongoing discussion of goals of care. Admission and Anticipated Discharge Date Admission Date: July 04, 2023 Subjective seen on rounds early this AM; failed weaning trial. HR 120s; BP soft. Review of Systems 2 Review of Systems: Unobtainable due to endotracheal tube Physical Exam 2 Constitutional: well developed, well nourished and + mechanically ventilated; no acute distress (though a bit restless today) Eyes: eomi, tracks ENMT: Ears: no external ear abnormality Nose: no external nose abnormality Mouth: + dry oral mucous membranes Neck: no nuchal rigidity Respiratory: normal respiratory effort (on vent) Auscultation: + diminished lung sounds Cardiovascular: RRR, no murmur, no edema Gastrointestinal (Abdomen): Inspection/Auscultation: + abdomen distended and normal bowel sounds Percussion/Palpation: abdomen soft; abdomen nontender Musculoskeletal: Extremities: + abnormal strength (on vent/sedated) Skin: no rashes, warm and dry Neurologic: awake, tracks, does not follow commands Results & Data Vital Signs (Past 12 Hours) Vital Signs Temp Pulse Pulse Resp BP Pulse Ox FiO2 07/12/23 11:05 37.2 C 77 97/51 L 07/12/23 11:00 77 102/55 L 07/12/23 10:55 37.2 C 78 97/51 L 07/12/23 10:40 37.5 C 79 80/43 L 07/12/23 10:39 37.5 C 29 H 80/43 L 96 07/12/23 10:30 77 73/40 L 07/12/23 10:24 37.3 C 77 26 H 49/41 L 97 07/12/23 10:21 37.3 C 77 26 H 79/41 L 96 07/12/23 10:17 79 28 H 97 50 07/12/23 10:15 37.3 C 77 79/49 L 07/12/23 10:00 77 72/42 L 07/12/23 09:59 36.6 C 79 26 H 80/43 L 97 07/12/23 09:56 36.9 C 78 80/43 L 07/12/23 09:53 36.9 C 07/12/23 09:45 79 72/46 L 07/12/23 09:43 36.9 C 77 80/43 L 07/12/23 09:30 37.5 C 83 78/35 L 07/12/23 09:28 37.5 C 79 26 H 78/35 L 97 07/12/23 09:15 84 81/41 L 07/12/23 09:14 37.7 C H 07/12/23 09:09 37.2 C 88 26 H 85/43 L 97 07/12/23 09:00 88 86/46 L 07/12/23 09:00 37.7 C H 92 H 07/12/23 07:48 103 H 26 H 94 60 07/12/23 05:00 94 H 26 H 91 07/12/23 05:00 96/43 L 07/12/23 04:29 97 H 26 H 91 07/12/23 04:29 98/44 L 07/12/23 04:00 86/39 L 07/12/23 04:00 86 26 H 91 07/12/23 04:00 37.7 C H 07/12/23 04:00 40 07/12/23 03:30 95 H 27 H 92 40 07/12/23 03:00 104/50 L 07/12/23 03:00 93 H 26 H 92 07/12/23 02:00 104/48 L 07/12/23 02:00 91 H 23 91 07/12/23 01:00 110/53 L 07/12/23 01:00 92 H 26 H 93 07/12/23 00:49 37.3 C 07/12/23 00:20 93 H 30 H 92 40 07/12/23 00:00 108/50 L 07/12/23 00:00 93 H 26 H 92 07/12/23 00:00 40 07/12/23 00:00 89 Laboratory Results 07/12/23 04:06 07/12/23 04:06 (2) Acute and chronic respiratory failure Respiratory failure complication: hypercapnia Qualified Code(s): J96.22 - Acute and chronic respiratory failure with hypercapnia
--- NOTE | 2023-07-12 12:41 | Hematology/Oncology Prog Note ---
Date of Service July 12, 2023 Assessment & Plan (1) Chronic lymphocytic leukemia: (2) Anemia: Plan Patient with CLL not currently on treatment who presented with respiratory failure secondary to pneumonia and has required multiple PRBC transfusions. Anemia panel has been unremarkable except for low normal B12 level and elevated reticulocyte count. Has normal LDH and haptoglobin. Peripheral smear review not suggestive of hemolysis -Anemia likely multifactorial due to splenomegaly from CLL, bone marrow involvement from CLL and possibly mild hemolysis given elevated reticulocyte count. Ideally, patient would benefit from systemic therapy at this time which should help improve splenomegaly, lymphadenopathy, anemia and thrombocytopenia. Options for treatment include CD20 monoclonal antibody such as rituximab or obinutuzumab, BTK inhibitor or venetoclax or combination of these. I typically do not recommend splenectomy due to high risk of infections associated with CLL as well as good response to systemic therapy associated with CLL treatments unless absolutely necessary. Would be reasonable to consider transfer to tertiary center given overall complexity of patient's clinical condition -Could consider high-dose steroids if infection is felt to be under control as this may help reduce disease burden as well as possible mild hemolysis. If he is placed on high-dose steroids, would have to monitor uric acid levels due to risk of TLS -Recommend starting daily B12 supplementation Admission and Anticipated Discharge Date Admission Date: July 04, 2023 Subjective Continues to require PRBC transfusions. Per cone examiner, has required 8 units of blood. Results & Data Vital Signs (Past 12 Hours) Vital Signs Temp Pulse Pulse Resp BP Pulse Ox FiO2 07/12/23 12:00 73 98/51 L 07/12/23 11:45 73 99/53 L 07/12/23 11:30 72 100/55 L 07/12/23 11:15 72 96/52 L 07/12/23 11:05 37.2 C 77 97/51 L 07/12/23 11:00 77 102/55 L 07/12/23 10:55 37.2 C 78 97/51 L 07/12/23 10:40 37.5 C 79 80/43 L 07/12/23 10:39 37.5 C 29 H 80/43 L 96 07/12/23 10:30 77 73/40 L 07/12/23 10:24 37.3 C 77 26 H 49/41 L 97 07/12/23 10:21 37.3 C 77 26 H 79/41 L 96 07/12/23 10:17 79 28 H 97 50 07/12/23 10:15 37.3 C 77 79/49 L 07/12/23 10:00 77 72/42 L 07/12/23 09:59 36.6 C 79 26 H 80/43 L 97 07/12/23 09:56 36.9 C 78 80/43 L 07/12/23 09:53 36.9 C 07/12/23 09:45 79 72/46 L 07/12/23 09:43 36.9 C 77 80/43 L 07/12/23 09:30 37.5 C 83 78/35 L 07/12/23 09:28 37.5 C 79 26 H 78/35 L 97 07/12/23 09:15 84 81/41 L 07/12/23 09:14 37.7 C H 07/12/23 09:09 37.2 C 88 26 H 85/43 L 97 07/12/23 09:00 88 86/46 L 07/12/23 09:00 37.7 C H 92 H 07/12/23 07:48 103 H 26 H 94 60 07/12/23 05:00 94 H 26 H 91 07/12/23 05:00 96/43 L 07/12/23 04:29 97 H 26 H 91 07/12/23 04:29 98/44 L 07/12/23 04:00 86/39 L 07/12/23 04:00 86 26 H 91 07/12/23 04:00 37.7 C H 07/12/23 04:00 40 07/12/23 03:30 95 H 27 H 92 40 07/12/23 03:00 104/50 L 07/12/23 03:00 93 H 26 H 92 07/12/23 02:00 104/48 L 07/12/23 02:00 91 H 23 91 07/12/23 01:00 110/53 L 07/12/23 01:00 92 H 26 H 93 07/12/23 00:49 37.3 C (2) Anemia Anemia type: other cause Other causes of anemia: other cause, not classified Qualified Code(s): D64.89 - Other specified anemias
[2023-07-12 17:00] LABS: Influenza A virus by PCR Negative (Neg); Influenza B virus by PCR Negative (Neg); RSV by PCR Negative (Neg); SARS CoV2 RNA(COVID-19) Ceph NEGATIVE (Negative)
--- NOTE | 2023-07-12 17:52 | Discharge Summary ---
Discharge Summary Date of Service July 12, 2023 Notes For Next Care Provider Medication Changes From Visit Home medications held Current visit: Precedex Cefepime q8 hours (07/10) Fentanyl Pantoprazole BID IV Thiamine 100mg Folate Budesonide and formoterol nebs Novasource TF Admission HPI Per Admitting Provider He is a 58-year-old male with significant past medical history of chronic lymphocytic leukemia not on any medication now, COPD, chronic diastolic heart failure, chronic hypoxic respiratory failure, hypertension, selective deficiency of immunoglobin M dyslipidemia and thrombocytopenia apparently complained very short of breath this morning and was brought into the emergency room and required intubation right away due to desaturation and shortness of breath with unresponsiveness. He lives alone and the history is taken from the daughter who talked to him yesterday and according to her he was doing reasonably okay. She mentioned that he has been having more shortness of breath recently and also has been having problem of chest tightness on lying down that he has to sit up or get up from sleeping to relieve the symptoms. He also was noted to have more shortness of breath in cold but no history of fever and chills, no nausea or vomiting, no abdominal pain and no problem with urine or bowel habit. He remains generally weak. The paramedics found him to be very short of breath and on arrival in the emergency room he required intubation due to very low saturation and almost unresponsiveness. He is sedated on mechanical vent and received intravenous vancomycin and cefepime for possible multilobar pneumonia and he was admitted to ICU for continuation of care. Admission Exam Per Admitting Provider Physical Exam: Remains unresponsive and sedated Constitutional: well developed, well nourished and + ill appearing Eyes: Closed ENMT: external ear and nose normal, oropharynx normal Neck: trachea midline, no thyromegaly Respiratory: + respiratory distress (On mechanical ve ntilator) Auscultation: + diminished lung sounds, + crackles (Bilateral coarse crackles) and + wheezes (Occasional wheezing bilateral) Cardiovascular: Rate/Rhythm: regular rate, regular rhythm and + tachycardic Heart Sounds: normal S1 and normal S2; no murmur Extremities: + edema (Trace edema bilaterally) Gastrointestinal (Abdomen): Inspection/Auscultation: + abdomen distended (Stop) and normal bowel sounds Percussion/Palpation: abdomen soft Musculoskeletal: No acute arthritis involving any of the joint Neurologic: On mechanical ventilator with sedation Lymphatic: no cervical or axillary lymphadenopathy Principal Dx & Hospital Course #1 = Principal Diagnosis (1) Pneumonia involving right lung: Plan Mr. Valiente is a 58-year-old male with PMH of chronic lymphocytic leukemia not on any medication now, COPD, chronic diastolic heart failure, chronic hypoxic respiratory failure, hypertension, selective deficiency of immunoglobulin and, dyslipidemia, thrombocytopenia presented to the ED with acute short of breath since the morning of arrival and needed intubation due to desaturation and shortness of breath with unresponsiveness at ED. He remains intubated at this time and declines any pursuit of trach at this time. Course complicated by fever, BEN, and lack of bowel movement. Fevers resolved-24 hours afebrile over 07/07-. TMAX 37.6 07/09. BEN likely ATN per nephrology, suspect renal function has yet to plateau and will continue to uptrend. Now passing stool, softer abdomen. HGB dropping; review of prior hematology consult revealed that losses likely 2/2 ongoing CLL and sepsis. B12/folate this admission wnl. Patient has recent admission in 05/2023 of respiratory failure ultimately requiring tracheostomy. Currently, SBT ongoing for "diaphragm" exercise rather than plan extubation. Given copious secretions and slow progress from a res piratory standpoint, extubation has been delayed to prevent reintubation. 07/11 Heme consulted given similar presentation to recent administration. Now s/p 6 U PRBC; Heme feels 2/2 sepsis at this time. No signs of bleeding via GI losses. Worsening renal dysfunction 2/2 ATN--Cr continues to rise, raising concerns for dialysis Remains intubated. Conversation held between procedures analyst and family regarding code status, ongoing measures. Will appreciate those recommendations. Family not at bedside during evaluation. Patient with worsening organ failure--respiratory and now renal. 07/12 Patient's hemodynamic status remains tenuous. Required pressor support to facilitate MOLD SHIFTER. Patient now on 8 Unit PRBC for hemoglobin of 6.[address] Ramirez, in hopes ongoing discussion regarding GOC and treatment options from a CLL/anemia standpoint could be made clear. Decision made to transfer patient. Family requesting further medical opinions on possible aggressive therapy like splenectomy, as well as need for a center without the limitation in blood products iso possible procedures like trach placement. #Anion gap metabolic acidosis secondary to renal failure #BEN, likely 2/2 ATN likely prerenal iso sepsis hypotension, as well as contrast load Cr. up to 1.69, baseline 0.9-1.2 Avoid nephrotoxic, maintain maps >65 Monitor UOP -UOP decreased, also note patient on chronic diuretics at home 80mg BID -Trend BMP, will likely increase; avoid aggressive hydration -Uric acid 7.5 (potassium normal, calcium stable/low, phos mild elevation) Renal ultrasound reviewed, kidneys normal, no hydro noted =Ongoing MOLD SHIFTER as tolerated hemodynamically: plan for daily 3 days, then reassess #Acute on chronic respiratory failure with hypercapnia/hypoxia requiring mechanical ventilation #Multilobar pneumonia #Severe sepsis POA: Likely secondary to above. Leukocytosis (iso CLL) and tachycardia at presentation. Lactate elevated. Patient presented with acute shortness of breath, needed intubation in the ED due to unresponsiveness and acute desaturation. Admitting CXR with multifocal airspace opacities, admitting ABG with hypercapnia and hypoxia. CT Chest on 07/05 with dense right > left consolidation, progressed since 05/22 Bronchoscopy on 07/05 with clear secretions MRSA is negative. Respiratory viral panel negative: vancomycin discontinued Patient intubated on 07/04, remains intubated at this time Patient is being managed in the ICU. NGTD on 07/05 bronch cultures; NGTD blood cultures, UA Continue Cefepime Trend daily CBC/BMP: ordered Vent/SBT per ICU -Trach discussion--on going discussions; [place] [facility] [place]Fevers *resolved Potentially multifactorial Follow infectious work up, reduced medications that may contribute Consider CLL as etiology Follow fever curve and clinical status #Sinus Tachycardia *resolved iso critical illness Monitor on telemetry #Constipation/Obstipation*improving -Bowel regimen in place #Acute normocytic anemia #Chronic anemia of chronic disease No documented melena, bronchoscopy without alveolar hemorrhage, plan for CT abdomen pelvis. Status post 6 units Transfuse to maintain hemoglobin above 7. 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 White cell count in 40s to 50s. Peripheral smear with no evidence of transformation to acute leukemia. Follow-up with oncology upon discharge CBC ordered in am Down trending in all cell lines IgG 552/4 07/08, recommended previously by heme to infuse Igg 400mg/kg if less than <500 Heme consulted: NTD, likely sepsis -400mg/kg ordered IVIG 07/09 #Thrombocytopenia *stable holding fast in 30s at this time #COPD Emphysema on imaging Resume budesonide and formoterol when able SBT per ICU; plan for trach as above #Chronic right-sided heart failure May 2023 echo with EF of 65 to 70%, grade 1 diastolic dysfunction. BNP elevated at 215. Chest x-ray consistent with mild congestion. Home regimen: Lasix 80mg BID Monitor for volume overload -Signs of ?edema on CXR -Discussed diuretics with ICU: plan for holding in interim while ATN resolves -MOLD SHIFTER for volume management #HTN Now relatively hypotensive 2/2 sepsis. #GERD Continue IV PPI OGT, TF per ICU Analgesia: Fentanyl, analgesia holidays per ICU Sedation: Propofol, sedation holidays per ICU DVT SCDS 2/2 thrombocytopenia/anemia HOB 30 Ulcer: PPI IV hyperglycemia protocol per ICU Bowel regimen prn Indwelling cath Abx: Cefepime SBT per ICU Potentially transfer Discharge Exam Respiratory intubated Cardiovascular tachycardic, +DURGA Gastrointestinal (Abdomen) distended Updated Medication List Medication Instructions Recorded Confirmed Type tiotropium bromide 18 mcg capsule 18 mcg inhalation DAILY 06/25/22 07/04/23 History with inhalation device (Spiriva with HandiHaler) albuterol sulfate 90 mcg/actuation 2 puff inhalation Q4 PRN Shortness 05/22/23 07/04/23 History aerosol inhaler Of Breath Or Wheezing epinephrine 0.3 mg/0.3 mL 0.3 mg IM UD PRN bee stings 05/22/23 07/04/23 History injection, auto-injector (EpiPen) Hospital Stay Data Consultations 07/04/23 12:05 ED Decision to Admit Stat 07/04/23 12:06 Consult Telephone Recorder Stat 07/04/23 12:26 Consult Telephone Recorder Routine 07/06/23 16:52 Consult Gastroenterology Routine 07/08/23 07:03 Consult Nephrology Routine 07/09/23 07:12 Consult Hematology Routine 07/11/23 17:07 Consult Oncology Routine 07/12/23 08:27 Consult General Surgery Routine 07/12/23 15:29 Burn CD for patient Routine Diagnostic Imagining Performed 07/05/23 13:38 CT Abd and Pelvis [CT abd pelvis IV con only] Stat CT chest diagnostic w con Stat 07/07/23 08:20 US venous doppler UE BI Routine 07/08/23 07:23 US renal/blad retro comp Stat 07/11/23 15:02 US point of care ultrasound Routine Pending Results Patient Have Any Pending Studies at Discharge: No Discharge Instructions Given to Patient (Per Discharging Provider) Admitted for acute respiratory failure, now with acute anemia and acute renal failure requiring dialysis. Transfer for escalation of care Total Time Total Time Spent Total Time Spent (In Minutes): 65
[2023-07-13 10:07] LABS: HBSAG NON-REACTIVE (NON-REACTIVE); Hepatitis B Surface Ab, Quant 175 mIU/mL (> OR = 10)
== END 2023-07-12 18:19 | disposition short-term general hospital (02) | DRG 871 ==
LOC: ED 11:01 → SUATTDRO 12:26 → 1E 12:26